=== PATIENT | female | born 1990 | race Caucasian/White ===

== ENCOUNTER → 2017-08-10 | Outpatient (CLI) | payer OTHER | END | disposition home or self-care (01) | LOC: C.PAPS 11:48 | PROVIDERS: ATTEND Family Medicine | DX: Z12.72 Encounter for screening for malignant neoplasm of vagina (principal) ==

== ENCOUNTER 2020-01-24 07:40 | Inpatient (IN) ==
[~2020-01-24 07:40] MED LIST: CEFAZOLIN 3000MG 65 ML IV ONE; CITRIC ACID/SODIUM CITRATE 15 ML UDC PO ONE
[2020-01-24] MEDS ORDERED: OXYTOCIN 30 UNITS/500 ML BAG IV PRN ×2 (07:46→08:24)
[2020-01-24 08:10] LABS: Hematocrit (blood only) 37.3 % (37-47); Hemoglobin 12.4 g/dL (12.0-16.0); Mean Corpuscular Hemoglobin 27.4 pg (25-34); Mean Corpuscular Volume 82.5 fL (80-100); Mean Platelet Volume 10.2 fL (7.4-10.4); Platelet Count 156 K/uL (130-400); RDW Coefficient of Variation 15.8 % (11.5-14.5); RDW Standard Deviation 47.1 fL (36.4-46.3); Red Blood Count 4.52 M/uL (4.2-5.4); White Blood Count 9.27 K/uL (4.8-10.8)
--- NOTE | 2020-01-24 08:17 | History & Physical Report ---
Date of Service January 24, 2020 Assessment & Plan (1) Encounter for induction of labor: PNL: Rh pos, RI, GBS neg, COVID neg Admit, labs, start IV Epidural when desired; anesthesiology consult placed Proceed with induction of labor per Pitocin augmentation protocol. Anticipate Admission and Anticipated Discharge Date Admission Date: January 24, 2020 History of Present Illness Primary Care Provider: Elma Damon DO Elvira Almendarez is a 29 y/o female currently at 40 3/7 WGA with an RADHA 01/21/20 as determined by LMP who is here for IOL due to postdates. Her was complicated by obesity. Patient does report some nausea this morning after eating a bagel but there was no vomiting. It is noted that she would like an epidural for pain control. + contractions q6 min overnight; + movement; - fluid loss; + bloody show Had regular appointments with OB. Blood type: A+ Antibody screen: neg Labs 06/20/19 Rubella: immune VDRL/RPR: nonreactive Gonorrhea: neg Chlamydia: neg HIV: neg HbSAg: neg GBS: negative 12/26/19 COVID-19 negative 01/12/20 Other screens: cff-DNA: low risk, female (see scanned documents) AFP negative CF and SMA: declined Allergies Allergy/AdvReac Type Severity Reaction Status Date / Time No Known Drug Allergies Allergy none Verified 01/24/20 07:48 Home Medications Home Medications Medication Instructions Recorded Confirmed Type prenat.vits,petrona,ova-rbwd-oggwz 1 tab PO DAILY #90 tab 08/17/19 01/24/20 Rx Patient History Medical History (Updated 01/24/20 @ 08:14 by [place] Alex DO) Cervical cancer screening Encounter for anatomic survey History of cervical dysplasia Hx of varicella Missed Obese Surgical History (Updated 06/13/19 @ 14:49 by Maricruz Angeles) H/O LEEP S/P ear surgery S/P LEEP of cervix S/P wisdom tooth extraction Family History (Updated 06/13/19 @ 15:08 by Maricruz Angeles) Grandmother (Maternal) Breast cancer Aunt Breast cancer Grandfather Heart murmur Other Twins, both liveborn Social History (Updated 06/13/19 @ 15:09 by Maricruz Angeles) Smoking Status: Never smoker Hx Alcohol Use: No Hx Substance Use: No Preferred Language: Azerbaijani Communication Ability: Effective 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 Denies shortness of breath or cough. Denies chest pain. Denies breast pain. + nausea. Denies vomiting. Denies dysuria or hematuria. Denies leg pain or leg swelling. Denies headache or changes in vision. Physical Exam Physical Exam: General: Alert, oriented. No acute distress. Cardiac: Regular rate and rhythm, no murmurs/rubs/gallops. Respiratory: Clear to auscultation bilaterally a/p, no wheezes/rales/rhonchi. No increased work of breathing. Symmetrical chest rise. No respiratory distress. Abdomen: Gravid. Vertex position. + heart tones. - palpable contractions. EFW 7-8# Pelvic: Dilation 4cm; Effacement 80%; Station -[address] Quezada in office yesterday External FHT and external uterine monitors used; Category I tracing; moderate FHT variability. Lower Extremities: No lower extremity edema or swelling. No deep calf pain. Yamilet's negative bilaterally Results & Data ([facility]) Vital Signs (Past 12 Hours) Vital Signs Temp Pulse Resp BP 01/24/20 07:44 36.9 C 93 H 20 139/84 Laboratory Results Labs at admission today H.4 Hct: 37.3 WBC: 9.27 Plt: 156 Code Status & VTE Plan VTE Prophylaxis Plan VTE Prophylaxis will be ordered: No Supervising Physician Co-Signing Physician Notes Resident Physician Supervision Note: I interviewed and examined the patient. Discussed with Dr. Alex and agree with findings and plan as documented in the note. Any exceptions or clarifications are listed here: 29yo at 40+wks ega desired elective induction of postdates. Cx exam yest in office favorable. /-2/ant/soft, GBS neg. Plan for pitocin and then arom with pattern. She desires epidural and can have when she wishes. FHTs categ 1. Documented By: Kayla Quezada MD, FACOG
[2020-01-24 08:23] LABS: Mean Corpuscular Hgb Conc 33.2 g/dL (32-36)
[2020-01-24] MEDS: LACTATED RINGER'S 1,000 ML IV PRN ×4 (08:37→21:05)
[2020-01-24] MEDS ORDERED: fentaNYL citrate 100 MCG/2 ML VIAL ONE (11:33)
[2020-01-24] MEDS ORDERED: ePHEDrine sulfate 50 MG/ML AMP ONE (11:33)
[2020-01-24] MEDS ORDERED: BUPIVACAINE 0.25% 30 ML VIAL ONE (11:33)
[2020-01-24] MEDS ORDERED: fentaNYL 2MCG/ML ROPIV 1.25MG/ML 100 ML BAG EPI ONE (11:34)
--- NOTE | 2020-01-24 13:05 | Anesthesiology Consultation ---
Date of Service January 24, 2020 Assessment & Plan Chart Review Chart Review: Acceptable Risk for Labor Epidural Consults Requested none History Height/Weight Height: 5 ft 4 in Weight: 99.337 kg Allergies Allergy/AdvReac Type Severity Reaction Status Date / Time No Known Drug Allergies Allergy none Verified 01/24/20 07:48 Medications Home Medications Medication Instructions Recorded Confirmed Last Taken prenat.vits,petrona,dkk-xocu-bgget 1 tab PO DAILY #90 tab 08/17/19 01/24/20 01/23/20 17:00 Active Medications Generic Name Dose Route Start Last Admin Trade Name Freq PRN Reason Stop Dose Admin Lactated Ringer's 1,000 mls @ 125 mls/hr 01/24/20 07:46 01/24/20 12:44 Lr IV 01/26/20 07:45 125 mls/hr .Q8H PRN Infusion L&D Protocol Protocol Oxytocin 30 units in 500 mls @ 14 mls/hr 01/24/20 08:24 01/24/20 12:00 Pitocin IV 01/26/20 08:23 0.84 units/hr .Q24H PRN 14 mls/hr Labor Induction/Augmentation Titration Protocol 0.84 UNITS/HR Past Medical History Medical History Cervical cancer screening Encounter for anatomic survey History of cervical dysplasia Hx of varicella Missed Obese Past Family History Family History Grandmother (Maternal) Breast cancer Aunt Breast cancer Grandfather Heart murmur Other Twins, both liveborn Past Surgical History Surgical History H/O LEEP S/P ear surgery S/P LEEP of cervix S/P wisdom tooth extraction Social History Smoking Status: Never smoker Hx Alcohol Use: No alcohol intake frequency: holidays/special occasions only Hx Substance Use: No Physical Exam Vital Signs Last Vital Signs Temp 36.9 C 01/24/20 12:37 Pulse 88 01/24/20 13:02 Resp 20 01/24/20 13:00 BP 115/62 01/24/20 13:02 Pulse Ox 99 01/24/20 12:58 Testing Laboratory Results 01/24/20 07:55
[2020-01-24] MEDS ORDERED: ePHEDrine sulfate 50 MG/ML AMP IV PRN (13:07)
[2020-01-24] MEDS ORDERED: NALOXONE HCL 1 MG in SODIUM CHLORIDE 0.9% 1000ML 1,000 ML IV PRN (13:07)
[2020-01-24] MEDS ORDERED: NALOXONE HCL 0.4 MG/1 ML VIAL/CARP IV PRN (13:07)
[2020-01-24] MEDS ORDERED: DiphenhydrAMINE HCL 50 MG/ML VIAL IV PRN (13:07)
[2020-01-24] MEDS ORDERED: fentaNYL 2MCG/ML ROPIV 1.25MG/ML 100 ML BAG EPI PRN (13:07)
--- NOTE | 2020-01-24 13:31 | Labor Progress Brief Note ---
Date of Service January 24, 2020 Subjective Reason For Note: Routine Evaluation now comfortable with epidural Assessment & Plan (1) Supervision of normal intrauterine in primigravida: (2) Encounter for induction of labor: (3) Obesity affecting : will see how fhts recover but really already have, meconium stained fluid explained to couple. restart pit at 7 in next 25min if categ 1. Admission and Anticipated Discharge Date Admission Date: January 24, 2020 Physical Exam Constitutional: WD/WN, vitals as above Genitourinary: Manual OB Exam: + cervical dilation 5 cm, + cervical effacement 90%, + station -2 and + amniotic fluid (AROM) meconium OB Exam Monitor Tracing: + external FHT monitor used, + scalp electrode used (90s, returning to 120 mod variability, accels) and + external uterine monitor used (q2) pit was at 14 but stopped when fhts not heard and then 80s, ivf bolus given. Results & Data ([facility]) Vital Signs (Past 12 Hours) Vital Signs Temp Pulse Resp BP Pulse Ox 01/24/20 13:24 83 92/55 L 01/24/20 13:23 84 98 01/24/20 13:18 76 97 01/24/20 13:13 88 99 01/24/20 13:08 85 113/66 99 01/24/20 13:06 82 114/63 01/24/20 13:04 96 H 115/63 01/24/20 13:03 92 H 99 01/24/20 13:02 88 115/62 01/24/20 13:00 88 20 116/59 L 01/24/20 12:58 95 H 109/58 L 99 01/24/20 12:56 88 119/62 01/24/20 12:54 93 H 113/61 01/24/20 12:53 87 99 01/24/20 12:52 82 118/58 L 01/24/20 12:51 20 01/24/20 12:50 86 128/61 01/24/20 12:48 85 124/58 L 100 01/24/20 12:47 78 138/65 01/24/20 12:43 82 99 01/24/20 12:38 86 99 01/24/20 12:37 98.4 F 82 20 133/85 01/24/20 12:33 83 99 01/24/20 12:28 81 99 01/24/20 12:23 89 98 01/24/20 12:18 89 98 01/24/20 12:13 87 99 01/24/20 12:08 92 H 99 01/24/20 12:03 71 100 01/24/20 11:58 79 100 01/24/20 11:53 75 99 01/24/20 11:48 78 99 01/24/20 11:43 80 99 01/24/20 11:38 82 120/72 99 01/24/20 11:33 88 99 01/24/20 11:28 79 100 01/24/20 11:00 98.6 F 20 01/24/20 10:37 76 126/68 01/24/20 09:37 75 118/76 01/24/20 08:45 81 118/69 01/24/20 08:14 85 136/75 01/24/20 07:44 98.4 F 93 H 20 139/84 Coding Level of Care Code None Diagnoses Supervision of normal intrauterine in primigravida Z34.00 Encounter for induction of labor Z34.90 Obesity affecting O99.210
--- NOTE | 2020-01-24 19:25 | Labor Progress Brief Note ---
Date of Service January 24, 2020 Subjective Reason For Note: Routine Evaluation pt with some pressure, was 10cm per nurse Assessment & Plan (1) Encounter for induction of labor: (2) Obesity affecting : (3) Supervision of normal intrauterine in primigravida: if fetus tolerates, rec position change and hold off on pushing. see if cephalic can come down and rotate. reexam pt in about 30min to begin 2nd stage or if she has overwhelming urge. Admission and Anticipated Discharge Date Admission Date: January 24, 2020 Physical Exam Constitutional: WD/WN, vitals as above Genitourinary: Manual OB Exam: + cervical dilation 10 cm, + cervical effacement 100% and + station + 1 OB Exam Monitor Tracing: + external FHT monitor used (130 mod variability, early decels), + external uterine monitor used (q2-3), + category II, + normal FHT variability and + variable decelerations tried to push with 2 ctx. not much effective pushing and fetus OP. rec position change Results & Data ([facility]) Vital Signs (Past 12 Hours) Vital Signs Temp Pulse Resp BP Pulse Ox 01/24/20 19:19 92 H 98 01/24/20 19:14 86 100 01/24/20 19:09 83 123/64 100 01/24/20 19:03 72 97 01/24/20 18:59 20 01/24/20 18:58 70 99 01/24/20 18:54 81 125/66 01/24/20 18:53 78 100 01/24/20 18:48 90 99 01/24/20 18:43 88 97 01/24/20 18:41 88 131/62 01/24/20 18:38 79 99 01/24/20 18:33 89 100 01/24/20 18:30 20 01/24/20 18:28 86 100 01/24/20 18:25 75 108/55 L 01/24/20 18:23 79 98 01/24/20 18:18 90 98 01/24/20 18:13 80 97 01/24/20 18:09 80 105/54 L 01/24/20 18:08 76 98 01/24/20 18:03 76 100 01/24/20 18:00 20 01/24/20 17:58 83 98 01/24/20 17:54 71 108/55 L 20 17:53 80 100 20 17:48 73 97 1820 17:43 73 97 20 17:39 72 104/51 L 20 17:38 73 96 20 17:33 72 97 1820 17:30 18 20 17:28 74 97 1820 17:24 76 108/52 L 20 17:23 76 96 20 17:18 72 97 20 17:13 77 97 20 17:09 73 115/53 L 01/24/20 17:08 85 98 01/24/20 17:03 78 100 01/24/20 17:00 98.6 F 20 01/24/20 16:58 75 98 20 16:54 73 94/50 L 01/24/20 16:53 72 100 20 16:48 73 99 01/24/20 16:43 79 99 20 16:39 76 92/53 L 01/24/20 16:38 70 100 20 16:33 73 100 20 16:30 20 20 16:28 75 99 20 16:25 67 103/54 L 01/24/20 16:23 70 99 20 16:18 80 100 20 16:13 71 100 20 16:11 71 96/51 L 01/24/20 16:08 78 98 01/24/20 16:03 75 99 20 16:00 18 20 15:58 79 99 20 15:54 83 118/66 1820 15:53 85 99 20 15:48 79 99 1820 15:43 89 98 1820 15:39 77 112/64 1820 15:38 85 97 1820 15:33 82 99 1820 15:30 20 20 15:28 87 97 1820 15:24 82 115/67 18/20 15:23 75 98 1820 15:18 76 99 01/24/20 15:13 73 99 01/24/20 15:09 77 108/66 01/24/20 15:08 76 98 01/24/20 15:03 82 98 01/24/20 15:00 98.6 F 20 01/24/20 14:58 75 99 01/24/20 14:54 69 98/51 L 01/24/20 14:53 74 99 01/24/20 14:48 76 98 01/24/20 14:43 81 97 01/24/20 14:40 20 01/24/20 14:39 80 117/59 L 01/24/20 14:38 77 97 01/24/20 14:33 74 99 01/24/20 14:28 72 100 01/24/20 14:25 76 88/50 L 01/24/20 14:23 75 98 01/24/20 14:18 81 97 01/24/20 14:15 20 01/24/20 14:13 73 99 01/24/20 14:09 79 97/55 L 01/24/20 14:08 80 98 01/24/20 14:03 80 98 01/24/20 13:58 75 98 01/24/20 13:54 69 95/55 L 01/24/20 13:53 80 98 01/24/20 13:50 18 01/24/20 13:48 78 97 01/24/20 13:45 18 01/24/20 13:43 81 96 01/24/20 13:39 78 99/58 L 01/24/20 13:38 77 96 01/24/20 13:33 81 97 01/24/20 13:29 74 18 95/54 L 01/24/20 13:28 75 97 01/24/20 13:24 83 92/55 L 01/24/20 13:23 84 98 01/24/20 13:18 76 97 01/24/20 13:15 20 01/24/20 13:13 88 99 01/24/20 13:08 85 113/66 99 01/24/20 13:06 82 114/63 01/24/20 13:04 96 H 115/63 01/24/20 13:03 92 H 99 01/24/20 13:02 88 115/62 01/24/20 13:00 88 20 116/59 L 01/24/20 12:58 95 H 109/58 L 99 01/24/20 12:56 88 119/62 01/24/20 12:54 93 H 113/61 01/24/20 12:53 87 99 01/24/20 12:52 82 118/58 L 01/24/20 12:51 20 01/24/20 12:50 86 128/61 01/24/20 12:48 85 124/58 L 100 01/24/20 12:47 78 138/65 01/24/20 12:43 82 99 01/24/20 12:38 86 99 01/24/20 12:37 98.4 F 82 20 133/85 01/24/20 12:33 83 99 01/24/20 12:28 81 99 01/24/20 12:23 89 98 01/24/20 12:18 89 98 01/24/20 12:13 87 99 01/24/20 12:08 92 H 99 01/24/20 12:03 71 100 01/24/20 11:58 79 100 01/24/20 11:53 75 99 01/24/20 11:48 78 99 01/24/20 11:43 80 99 01/24/20 11:38 82 120/72 99 01/24/20 11:33 88 99 01/24/20 11:28 79 100 01/24/20 11:00 98.6 F 20 01/24/20 10:37 76 126/68 01/24/20 09:37 75 118/76 01/24/20 08:45 81 118/69 01/24/20 08:14 85 136/75 01/24/20 07:44 98.4 F 93 H 20 139/84 Coding Level of Care Code None Diagnoses Encounter for induction of labor Z34.90 Obesity affecting O99.210 Supervision of normal intrauterine in primigravida Z34.00
[2020-01-24] MEDS ORDERED: CITRIC ACID/SODIUM CITRATE 15 ML UDC ONE (23:16)
--- NOTE | 2020-01-24 23:21 | Labor Progress Brief Note ---
Date of Service January 24, 2020 Subjective Reason For Note: Requested By RN pt feeling tired. has been pushing for 3+hours Assessment & Plan (1) Supervision of normal intrauterine in primigravida: (2) Obesity affecting : (3) Encounter for induction of labor: pt has been pushing but really no significant change in station, no molding. discussed vacuum assistance but given the station and really no descent of the cephalic with her expulsive efforts, i do not recommend. rec continued 2nd stage vs. section and recommended latter due to failure to descend. patient agrees and consent form reviewed and signed. anesth and peds notified by nursing. pitocin d/c'd Admission and Anticipated Discharge Date Admission Date: January 24, 2020 Physical Exam Constitutional: WD/WN, vitals as above Genitourinary: Manual OB Exam: + cervical dilation 10 cm, + cervical effacement 100% and + station + 1 OB Exam Monitor Tracing: + external FHT monitor used (150 mod variability, variables, ), + external uterine monitor used (q2-3), + category II and + normal FHT variability really no molding and station does not change with pt expulsive efforts. Results & Data ([facility]) Vital Signs (Past 12 Hours) Vital Signs Temp Pulse Resp BP Pulse Ox 01/24/20 23:14 98 H 99 01/24/20 23:09 86 135/79 97 01/24/20 23:04 98 H 98 01/24/20 22:59 98.2 F 75 20 98 01/24/20 22:55 96 H 130/64 01/24/20 22:54 89 98 01/24/20 22:49 108 H 100 01/24/20 22:45 20 01/24/20 22:44 123 H 99 01/24/20 22:39 90 127/77 97 01/24/20 22:34 106 H 99 01/24/20 22:30 20 01/24/20 22:29 88 98 01/24/20 22:25 86 127/75 01/24/20 22:24 80 96 01/24/20 22:19 90 100 01/24/20 22:15 20 01/24/20 22:14 96 H 98 01/24/20 22:09 99 H 97 01/24/20 22:04 90 99 08/18/20 22:00 20 08/18/20 21:59 82 99 18/20 21:54 99 H 126/68 98 18/20 21:49 95 H 99 18/20 21:45 20 18/20 21:44 114 H 99 18/20 21:39 94 H 118/56 L 98 1820 21:36 112 H 91 18/20 21:34 100 H 100 1820 21:30 118 H 20 93 18/20 21:29 84 99 18/20 21:25 82 154/63 H 18/20 21:24 108 H 96 18/20 21:19 74 99 1820 21:15 20 20 21:14 72 99 1820 21:09 86 109/60 100 1820 21:04 104 H 99 20 21:02 104 H 89 L 20 21:00 98.8 F 20 20 20:59 78 99 1820 20:56 85 91 18/20 20:54 83 100 18/20 20:49 76 99 18/20 20:45 20 1820 20:44 96 H 100 1820 20:41 86 115/59 L 1820 20:39 78 99 1820 20:34 75 100 18/20 20:30 20 0818/20 20:29 110 H 98 18/20 20:25 89 121/63 1820 20:24 97 H 97 18/20 20:19 76 99 18/20 20:14 92 H 99 18/20 20:09 92 H 128/67 100 18/20 20:04 80 98 18/20 20:00 18 18/20 19:59 95 H 97 18/20 19:54 89 119/65 96 18/20 19:49 84 96 18/20 19:44 83 98 18/20 19:39 89 130/66 96 18/20 19:34 77 100 0818/20 19:30 18 08/18/20 19:29 82 99 18/20 19:25 98.2 F 18 1820 19:24 87 121/63 98 18/20 19:20 98.2 F 18 20 19:19 92 H 98 1820 19:14 86 100 20 19:09 83 123/64 100 1820 19:03 72 97 1820 18:59 20 20 18:58 70 99 20 18:54 81 125/66 20 18:53 78 100 20 18:48 90 99 20 18:43 88 97 20 18:41 88 131/62 20 18:38 79 99 20 18:33 89 100 20 18:30 20 20 18:28 86 100 20 18:25 75 108/55 L 01/24/20 18:23 79 98 01/24/20 18:18 90 98 01/24/20 18:13 80 97 01/24/20 18:09 80 105/54 L 20 18:08 76 98 20 18:03 76 100 20 18:00 20 20 17:58 83 98 20 17:54 71 108/55 L 20 17:53 80 100 1820 17:48 73 97 1820 17:43 73 97 1820 17:39 72 104/51 L 1820 17:38 73 96 1820 17:33 72 97 1820 17:30 18 1820 17:28 74 97 1820 17:24 76 108/52 L 1820 17:23 76 96 1820 17:18 72 97 1820 17:13 77 97 1820 17:09 73 115/53 L 1820 17:08 85 98 1820 17:03 78 100 1820 17:00 98.6 F 20 20 16:58 75 98 1820 16:54 73 94/50 L 20 16:53 72 100 08/18/20 16:48 73 99 18/20 16:43 79 99 1820 16:39 76 92/53 L 20 16:38 70 100 18/20 16:33 73 100 18/20 16:30 20 20 16:28 75 99 18/20 16:25 67 103/54 L 20 16:23 70 99 20 16:18 80 100 1820 16:13 71 100 1820 16:11 71 96/51 L 20 16:08 78 98 20 16:03 75 99 20 16:00 18 01/24/20 15:58 79 99 20 15:54 83 118/66 20 15:53 85 99 20 15:48 79 99 20 15:43 89 98 20 15:39 77 112/64 20 15:38 85 97 20 15:33 82 99 20 15:30 20 20 15:28 87 97 18/20 15:24 82 115/67 01/23/20 15:23 75 98 20 15:18 76 99 20 15:13 73 99 20 15:09 77 108/66 20 15:08 76 98 20 15:03 82 98 01/24/20 15:00 98.6 F 20 01/24/20 14:58 75 99 20 14:54 69 98/51 L 20 14:53 74 99 20 14:48 76 98 18/20 14:43 81 97 1820 14:40 20 20 14:39 80 117/59 L 01/24/20 14:38 77 97 1820 14:33 74 99 1820 14:28 72 100 20 14:25 76 88/50 L 20 14:23 75 98 1820 14:18 81 97 01/24/20 14:15 20 01/24/20 14:13 73 99 08/18/20 14:09 79 97/55 L 01/24/20 14:08 80 98 01/24/20 14:03 80 98 01/24/20 13:58 75 98 01/24/20 13:54 69 95/55 L 01/24/20 13:53 80 98 01/24/20 13:50 18 01/24/20 13:48 78 97 01/24/20 13:45 18 01/24/20 13:43 81 96 01/24/20 13:39 78 99/58 L 01/24/20 13:38 77 96 01/24/20 13:33 81 97 01/24/20 13:29 74 18 95/54 L 01/24/20 13:28 75 97 01/24/20 13:24 83 92/55 L 01/24/20 13:23 84 98 01/24/20 13:18 76 97 01/24/20 13:15 20 01/24/20 13:13 88 99 01/24/20 13:08 85 113/66 99 01/24/20 13:06 82 114/63 01/24/20 13:04 96 H 115/63 01/24/20 13:03 92 H 99 01/24/20 13:02 88 115/62 01/24/20 13:00 88 20 116/59 L 01/24/20 12:58 95 H 109/58 L 99 01/24/20 12:56 88 119/62 01/24/20 12:54 93 H 113/61 01/24/20 12:53 87 99 01/24/20 12:52 82 118/58 L 01/24/20 12:51 20 01/24/20 12:50 86 128/61 01/24/20 12:48 85 124/58 L 100 01/24/20 12:47 78 138/65 01/24/20 12:43 82 99 01/24/20 12:38 86 99 01/24/20 12:37 98.4 F 82 20 133/85 01/24/20 12:33 83 99 01/24/20 12:28 81 99 01/24/20 12:23 89 98 01/24/20 12:18 89 98 01/24/20 12:13 87 99 01/24/20 12:08 92 H 99 01/24/20 12:03 71 100 01/24/20 11:58 79 100 01/24/20 11:53 75 99 01/24/20 11:48 78 99 01/24/20 11:43 80 99 01/24/20 11:38 82 120/72 99 01/24/20 11:33 88 99 01/24/20 11:28 79 100 Coding Level of Care Code None Diagnoses Supervision of normal intrauterine in primigravida Z34.00 Obesity affecting O99.210 Encounter for induction of labor Z34.90
[2020-01-24] MEDS ORDERED: LACTATED RINGER'S 1,000 ML IV SCH (23:30)
[2020-01-24] MEDS ORDERED: LIDOCAINE/EPINEPHRINE 2% 1:200,000 20 ML SDV ONE (23:38)
[2020-01-25] MEDS ORDERED: fentaNYL citrate 100 MCG/2 ML VIAL ONE (00:11)
[2020-01-25] MEDS ORDERED: METHYLERGONOVINE MALEATE 0.2 MG/ML AMP ONE (00:31)
[2020-01-25] MEDS ORDERED: ONDANSETRON INJ 2 MG/ML 2 ML VIAL ONE (00:31)
[2020-01-25] MEDS ORDERED: PHENYLEPHRINE 100MCG/ML 5ML SYR ONE (00:31)
--- NOTE | 2020-01-25 00:39 | Post Operative Brief Note ---
PG Immediate Post Op with CF Date of Surgery January 25, 2020 Pre & Post Diagnosis Operation Date: 01/24/20 23:40 <No data on this case meets the specified criteria> 1. 40+wk iup 2. elective induction of labor 3. failure to descend 4. meconium stained fluid I identified the patient and participated in the time-out.: Yes Procedure Operation Date: 01/24/20 23:40 <No data on this case meets the specified criteria> Primary Low Transverse Section Surgeon Kayla Quezada MD, FACOG Blueprint Duplicator RN Estimated Blood Loss 800 Findings Consistent with Post-Op Diagnosis (viable female, apgars 8,9. normal uterus, tubes and ovaries bilaterally) Fluids 1000cc Specimens Specimen Description: cord blood Drains Martinez Catheter Anesthesia Type Labor Epidural Complications none Disposition Accompanied Patient To Recovery: No Disposition: L&D
[2020-01-25] MEDS ORDERED: OXYTOCIN 10 UNITS/ML VIAL ONE (00:45)
--- NOTE | 2020-01-25 00:51 | Operative Report ---
PG Post Operative Report Pre & Post Diagnosis Operation Date: 01/24/20 23:40 <No data on this case meets the specified criteria> 1. 40+wk iup 2. Elective postdates induction of labor 3. Meconium stained fluid 4. Failure to descend I identified the patient and participated in the time-out.: Yes Procedure Operation Date: 01/24/20 23:40 <No data on this case meets the specified criteria> 1. Primary Low Transverse Section Surgeon Kayla Quezada MD, FACOG Plastic Tile Setter RN Estimated Blood Loss 800 Findings Consistent with Post-Op Diagnosis (viable female, apgars 8,9. weight 8# 11oz, normal uterus, tubes and ovaries bilaterally) Fluids 1000cc Specimens cord blood Drains herrera Anesthesia Type Labor Epidural Complications none Disposition Accompanied Patient To Recovery: No Disposition: L&D Indications 29yo at 40+wks ega presented to L&D for planned postdates induction of labor. Received pitocin and arom performed with thin meconium noted. Had epidural for pain management and reached complete dilation. Pushed for 3+ hours with no significant descent. Recommended for section and agreed. Station +1 and discussed vacuum assistance but did not recommend due to station and no movement of cephalic with maternal expulsive efforts. Patient and partner agreed to proceed with section. Description of Procedure The patient was taken to the operating room and identified. After adequate anesthesia was obtained, she was placed in the supine position with a leftward tilt on the operating table and prepped and draped in the usual sterile fashion. A herrera catheter had already been placed. The knife was used to create a Pfannensteil skin incision that was carried down to the underlying layer of fascia. The fascia was nicked in the midline and this opening was extended laterally using Lopes scissors. Ailyn clamps were placed on the superior and inferior aspect of the fascial incision tenting it upward and the underlying rectus muscles were dissected off the overlying fascia both sharply and bluntly using Lopes scissors. The rectus muscles were bluntly in the midline. The peritoneal cavity was bluntly entered into. This opening was stretched. The bladder blade was placed. The vesicouterine peritoneum was elevated and opened up into and the bladder flap was created digitally and bladder blade was replaced. The knife was used to create a hysterotomy and this opening was stretched. The operators hand was placed through the hysterotomy and the bladder blade was removed. The head was elevated and flexed and with fundal pressure the head was delivered. The shoulders and body were rapidly delivered. The cord was clamped and cut and the infant's mouth and nares were bulb suction. The was handed off to the awaiting pediatricians. Cord blood was obtained. The placenta was manually expressed. The uterus was exteriorized and cleared of all clots and debris. Dilute IV Pitocin was begun. The uterine tone was improving. The hysterotomy was closed in a running interlocking fashion using 0 Vicryl followed by a second imbricating layer of 0 Vicryl. A bleeding site at the left of the midline was bleeding and stitched with an interrupted suture of 2-0 vicryl for excellent hemostasis. The hysterotomy was hemostatic. The pelvis was irrigated. The uterus was returned to the abdomen. The gutters were cleared of all clots and debris. The hysterotomy was reinspected and noted to be hemostatic. The fascia was then closed in running fashion using 0 Vicryl. The subcutaneous fat was copiously irrigated and reapproximated using 2-0 chromic. The skin was closed in a subcuticular fashion using 4-0 Vicryl. At this point the procedure was terminated. The patient was transferred to the recovery room in stable condition. All sponge, lap and needle counts are correct x2. I attest to the content of the Intraoperative Record and any orders documented therein. Any exceptions are noted below. OB Procedure charges OB Charges 89377 C/S
[2020-01-25] MEDS ORDERED: KETOROLAC 30 MG/ML VIAL IV PRN (01:06)
[2020-01-25] MEDS ORDERED: DiphenhydrAMINE HCL 50 MG/ML VIAL IV PRN (01:06)
[2020-01-25] MEDS ORDERED: MAGNESIUM HYDROXIDE SUSP 30 ML UDC PO PRN (01:06)
[2020-01-25] MEDS ORDERED: BENZOCAINE 20% AER SPR 82.5 GM CAN EXT PRN (01:06)
[2020-01-25] MEDS ORDERED: METHYLERGONOVINE MALEATE 0.2 MG/ML AMP IM STA (01:06)
[2020-01-25] MEDS ORDERED: ONDANSETRON INJ 2 MG/ML 2 ML VIAL IV PRN (01:06)
[2020-01-25] MEDS ORDERED: HYDROCORTISONE ACETATE 25 MG SUPP PR PRN (01:06)
[2020-01-25] MEDS ORDERED: SUPERCREAM 0.870% 15 GM JAR EXT PRN (01:06)
[2020-01-25] MEDS ORDERED: PROMETHAZINE HCL 25 MG in SODIUM CHLORIDE 0.9% 50 ML IV PRN (01:06)
[2020-01-25] MEDS ORDERED: DIPHTHERIA/TETANUS/PERTUSSIS 0.5 ML SYR/VIAL IM ONE (01:06)
[2020-01-25] MEDS ORDERED: KETOROLAC 30 MG/ML VIAL ONE (01:21)
[2020-01-25] MEDS: OXYTOCIN 20 UNITS in LACTATED RINGER'S 1,000 ML IV SCH ×2 (01:46→10:06)
--- NOTE | 2020-01-25 01:49 | Anesthesiology Progress Note ---
Date of Service January 25, 2020 Anesthesia Post Procedure Vital Signs Vital Signs: Temp Pulse Resp BP Pulse Ox 01/25/20 01:45 83 16 93 01/25/20 01:44 81 96 01/25/20 01:41 86 122/58 L 01/25/20 01:39 85 97 01/25/20 01:35 16 01/25/20 01:34 88 99 01/25/20 01:31 85 124/58 L 01/25/20 01:29 84 100 01/25/20 01:25 18 01/25/20 01:24 96 H 100 01/25/20 01:21 85 122/54 L 01/25/20 01:19 88 99 01/25/20 01:15 18 01/25/20 01:14 94 H 100 01/25/20 01:09 109 H 100 01/25/20 01:08 132/75 01/25/20 01:05 18 01/25/20 01:04 99 H 99 01/25/20 00:59 105 H 96 01/25/20 00:55 37.3 C 18 01/25/20 00:53 98 H 100 01/25/20 00:50 100 H 119/64 01/25/20 00:48 102 H 100 01/24/20 23:47 18 01/24/20 23:44 109 H 99 01/24/20 23:42 98 H 142/64 H 01/24/20 23:39 94 H 145/66 H 98 01/24/20 23:34 94 H 98 01/24/20 23:29 101 H 97 01/24/20 23:25 88 143/66 H 01/24/20 23:24 92 H 98 01/24/20 23:19 96 H 98 01/24/20 23:15 20 01/24/20 23:14 98 H 99 01/24/20 23:09 86 135/79 97 01/24/20 23:04 98 H 98 01/24/20 23:00 20 01/24/20 22:59 36.8 C 75 20 98 01/24/20 22:55 96 H 130/64 01/24/20 22:54 89 98 01/24/20 22:49 108 H 100 01/24/20 22:45 20 01/24/20 22:44 123 H 99 08/18/20 22:39 90 127/77 97 0818/20 22:34 106 H 99 18/20 22:30 20 0818/20 22:29 88 98 0818/20 22:25 86 127/75 0818/20 22:24 80 96 08/18/20 22:19 90 100 0818/20 22:15 20 0818/20 22:14 96 H 98 18/20 22:09 99 H 97 18/20 22:04 90 99 18/20 22:00 20 18/20 21:59 82 99 18/20 21:54 99 H 126/68 98 18/20 21:49 95 H 99 18/20 21:45 20 1820 21:44 114 H 99 18/20 21:39 94 H 118/56 L 98 18/20 21:36 112 H 91 18/20 21:34 100 H 100 18/20 21:30 118 H 20 93 1820 21:29 84 99 18/20 21:25 82 154/63 H 18/20 21:24 108 H 96 18/20 21:19 74 99 18/20 21:15 20 081820 21:14 72 99 18/20 21:09 86 109/60 100 0818/20 21:04 104 H 99 18/20 21:02 104 H 89 L 18/20 21:00 37.1 C 20 18/20 20:59 78 99 18/20 20:56 85 91 18/20 20:54 83 100 18/20 20:49 76 99 0818/20 20:45 20 0818/20 20:44 96 H 100 0818/20 20:41 86 115/59 L 18/20 20:39 78 99 18/20 20:34 75 100 0818/20 20:30 20 0818/20 20:29 110 H 98 0818/20 20:25 89 121/63 0818/20 20:24 97 H 97 18/20 20:19 76 99 18/20 20:14 92 H 99 18/20 20:09 92 H 128/67 100 1820 20:04 80 98 18/20 20:00 18 1820 19:59 95 H 97 1820 19:54 89 119/65 96 1820 19:49 84 96 1820 19:44 83 98 1820 19:39 89 130/66 96 18/20 19:34 77 100 1820 19:30 18 1820 19:29 82 99 1820 19:25 36.8 C 18 1820 19:24 87 121/63 98 1820 19:20 36.8 C 18 20 19:19 92 H 98 20 19:14 86 100 20 19:09 83 123/64 100 20 19:03 72 97 1820 18:59 20 20 18:58 70 99 20 18:54 81 125/66 20 18:53 78 100 20 18:48 90 99 20 18:43 88 97 1820 18:41 88 131/62 1820 18:38 79 99 1820 18:33 89 100 20 18:30 20 20 18:28 86 100 20 18:25 75 108/55 L 20 18:23 79 98 1820 18:18 90 98 1820 18:13 80 97 1820 18:09 80 105/54 L 1820 18:08 76 98 1820 18:03 76 100 1820 18:00 20 1820 17:58 83 98 1820 17:54 71 108/55 L 1820 17:53 80 100 18/20 17:48 73 97 18/20 17:43 73 97 1820 17:39 72 104/51 L 18/20 17:38 73 96 18/20 17:33 72 97 18/20 17:30 18 1820 17:28 74 97 18/20 17:24 76 108/52 L 20 17:23 76 96 1820 17:18 72 97 1820 17:13 77 97 20 17:09 73 115/53 L 20 17:08 85 98 1820 17:03 78 100 1820 17:00 37.0 C 20 01/24/20 16:58 75 98 20 16:54 73 94/50 L 01/24/20 16:53 72 100 1820 16:48 73 99 20 16:43 79 99 20 16:39 76 92/53 L 01/24/20 16:38 70 100 20 16:33 73 100 20 16:30 20 20 16:28 75 99 20 16:25 67 103/54 L 01/24/20 16:23 70 99 01/24/20 16:18 80 100 01/24/20 16:13 71 100 01/24/20 16:11 71 96/51 L 01/24/20 16:08 78 98 20 16:03 75 99 01/24/20 16:00 18 01/24/20 15:58 79 99 20 15:54 83 118/66 20 15:53 85 99 20 15:48 79 99 20 15:43 89 98 20 15:39 77 112/64 20 15:38 85 97 20 15:33 82 99 1820 15:30 20 20 15:28 87 97 1820 15:24 82 115/67 18/20 15:23 75 98 1820 15:18 76 99 1820 15:13 73 99 20 15:09 77 108/66 20 15:08 76 98 1820 15:03 82 98 1820 15:00 37.0 C 20 01/24/20 14:58 75 99 20 14:54 69 98/51 L 01/24/20 14:53 74 99 01/24/20 14:48 76 98 01/24/20 14:43 81 97 01/24/20 14:40 20 01/24/20 14:39 80 117/59 L 01/24/20 14:38 77 97 01/24/20 14:33 74 99 01/24/20 14:28 72 100 01/24/20 14:25 76 88/50 L 01/24/20 14:23 75 98 01/24/20 14:18 81 97 01/24/20 14:15 20 01/24/20 14:13 73 99 01/24/20 14:09 79 97/55 L 01/24/20 14:08 80 98 01/24/20 14:03 80 98 01/24/20 13:58 75 98 01/24/20 13:54 69 95/55 L 01/24/20 13:53 80 98 01/24/20 13:50 18 01/24/20 13:48 78 97 01/24/20 13:45 18 01/24/20 13:43 81 96 01/24/20 13:39 78 99/58 L 01/24/20 13:38 77 96 01/24/20 13:33 81 97 01/24/20 13:29 74 18 95/54 L 01/24/20 13:28 75 97 01/24/20 13:24 83 92/55 L 01/24/20 13:23 84 98 01/24/20 13:18 76 97 01/24/20 13:15 20 01/24/20 13:13 88 99 01/24/20 13:08 85 113/66 99 01/24/20 13:06 82 114/63 01/24/20 13:04 96 H 115/63 01/24/20 13:03 92 H 99 01/24/20 13:02 88 115/62 01/24/20 13:00 88 20 116/59 L 01/24/20 12:58 95 H 109/58 L 99 01/24/20 12:56 88 119/62 01/24/20 12:54 93 H 113/61 01/24/20 12:53 87 99 01/24/20 12:52 82 118/58 L 01/24/20 12:51 20 01/24/20 12:50 86 128/61 01/24/20 12:48 85 124/58 L 100 01/24/20 12:47 78 138/65 01/24/20 12:43 82 99 01/24/20 12:38 86 99 01/24/20 12:37 36.9 C 82 20 133/85 01/24/20 12:33 83 99 01/24/20 12:28 81 99 01/24/20 12:23 89 98 01/24/20 12:18 89 98 01/24/20 12:13 87 99 01/24/20 12:08 92 H 99 01/24/20 12:03 71 100 01/24/20 11:58 79 100 01/24/20 11:53 75 99 01/24/20 11:48 78 99 01/24/20 11:43 80 99 01/24/20 11:38 82 120/72 99 01/24/20 11:33 88 99 01/24/20 11:28 79 100 01/24/20 11:00 37.0 C 20 01/24/20 10:37 76 126/68 01/24/20 09:37 75 118/76 01/24/20 08:45 81 118/69 01/24/20 08:14 85 136/75 01/24/20 07:44 36.9 C 93 H 20 139/84 Pain Intensity Bilateral Abdomen: Pain Intensity: 5 Transfer of Care Handoff Completed per policy Notes Mental Status: alert / awake / arousable and participated in evaluation Patient Amnestic to Procedure: Yes Nausea / Vomiting: adequately controlled Pain: adequately controlled Airway Patency, RR, SpO2: stable & adequate BP & HR: stable & adequate Hydration State: stable & adequate Anesthetic Complications: no major complications apparent
--- NOTE | 2020-01-25 01:49 | Anesthesia Procedure Note ---
Date of Service January 25, 2020 Anesthesia Post Epidural Note Vital Signs Vital Signs: Temp Pulse Resp BP Pulse Ox 37.3 C 83 16 122/58 L 93 01/25/20 00:55 01/25/20 01:45 01/25/20 01:45 01/25/20 01:41 01/25/20 01:45 Pain Intensity Bilateral Abdomen: Pain Intensity: 5 Notes Mental Status: alert / awake / arousable Nausea / Vomiting: adequately controlled Pain: adequately controlled Airway Patency, RR, SpO2: stable & adequate BP & HR: stable & adequate Hydration State: stable & adequate Neuraxial Anesthesia: was administered and sensory block is resolving Anesthetic Complications: no major complications apparent and Pt Satisfied with anesthetic care Epidural: Removed without complications and With tip intact
[2020-01-25] MEDS ORDERED: MEPERIDINE HCL 25 MG/ML CARP/VIAL IV PRN (05:46)
[2020-01-25] MEDS ORDERED: ATROPINE SULFATE 0.1 MG/ML 10ML SYR IV PRN (05:46)
[2020-01-25] MEDS ORDERED: fentaNYL citrate 100 MCG/2 ML VIAL IV PRN (05:46)
[2020-01-25] MEDS ORDERED: ePHEDrine sulfate 50 MG/ML AMP IV PRN (05:46)
[2020-01-25] MEDS ORDERED: HYDROmorphone INJ 2 MG/ML SYR/VIAL IV PRN (05:46)
[2020-01-25] MEDS ORDERED: NALOXONE HCL 0.4 MG/1 ML VIAL/CARP IV PRN (05:52)
[2020-01-25] MEDS ORDERED: HYDROmorphone PCA 30 MG/30 ML IV PRN (05:52)
[2020-01-25] MEDS ORDERED: SODIUM CHLORIDE 0.9% 1000ML 1,000 ML IV SCH (06:00)
[2020-01-25] MEDS: DOCUSATE SODIUM 100 MG CAP PO SCH ×2 (08:27→20:43)
[2020-01-25] MEDS: FERROUS SULFATE 325 MG TAB PO SCH (08:27)
[2020-01-25] MEDS: SIMETHICONE 80 MG CHEW PO SCH ×4 (08:27→20:43)
[2020-01-25] MEDS: PRENATAL VITAMIN 1 TAB PO SCH (08:29)
[2020-01-25] MEDS: OXYCODONE/ACETAMINOPHEN 5mg/325mg TAB PO PRN (20:42)
[2020-01-26] MEDS: OXYCODONE/ACETAMINOPHEN 5mg/325mg TAB PO PRN ×4 (01:19→21:17)
[2020-01-26] MEDS: IBUPROFEN 600 MG TAB PO PRN ×4 (01:20→21:16)
[2020-01-26 05:39] LABS: Basophils # (auto) 0.02 K/uL (0-0.2); Basophils % (auto) 0.2 %; Eosinophils # (auto) 0.18 K/uL (0-0.5); Eosinophils % (auto) 1.5 %; Hematocrit (blood only) 35.2 % (37-47); Hemoglobin 11.2 g/dL (12.0-16.0); Immature Granulocytes # (auto) 0.07 K/uL (0.00-0.02); Immature Granulocytes % (auto) 0.6 %; Lymphocytes # (auto) 2.34 K/uL (1.2-3.4); Lymphocytes % (auto) 18.9 %; Mean Corpuscular Hemoglobin 27.1 pg (25-34); Mean Corpuscular Hgb Conc 31.8 g/dL (32-36); Mean Platelet Volume 10.3 fL (7.4-10.4); Monocytes # (auto) 0.72 K/uL (0.11-0.59); Monocytes % (auto) 5.8 %; Neutrophils # (auto) 9.02 K/uL (1.4-6.5); Platelet Count 177 K/uL (130-400); RDW Coefficient of Variation 16.3 % (11.5-14.5); RDW Standard Deviation 51.2 fL (36.4-46.3); Red Blood Count 4.14 M/uL (4.2-5.4); White Blood Count 12.35 K/uL (4.8-10.8)
--- NOTE | 2020-01-26 07:00 | Obstetrical Progress Note ---
Date of Service <Venice Mely Alex DO - Last Filed: 01/26/20 07:54> January 26, 2020 Assessment & Plan <Venice GauthierFarhan OswaldkeatonDO john - Last Filed: 01/26/20 07:54> (1) Normal course: - PNL: Rh pos, RI, GBS neg, COVID neg - Feels well today. Eating well, voiding well, ambulating well. - Pain well controlled with ibuprofen 600mg Q4H PRN - Routine care -- OOB, ambulation, diet progression as tolerated - After discharge will have 6 week follow-up with Dr. Quezada. Subjective <Venice GauthierFarhan Alex DO - Last Filed: 01/26/20 07:54> Elvira Almendarez is a 29 y/o female who is POD #1 following delivery due to failure to descend during stage I labor after IOL due to postdates at 40 4/7 weeks. She reports feeling well overall this morning. Minimal abdominal cramping and 0-3/10 pain well managed on analgesics. Voiding without difficulty or dysuria. Tolerating meals overnight without nausea or vomiting. Patient has been able to ambulate some. + passing gas and - bowel movement. Has persistent lochia with some improvement this morning. Currently and supplementing with bottle. Review of Systems Denies fever or chills. Denies shortness of breath or cough. Denies chest pain. Denies breast pain. Denies dysuria. Denies leg pain or leg swelling. Denies headache or changes in vision. Physical Exam <Venice Mely Alex DO - Last Filed: 01/26/20 07:54> General: Alert, oriented. No acute distress. Cardiac: Regular rate and rhythm. No murmurs. Respiratory: Clear to auscultation bilaterally a/p, no wheezes/rales/rhonchi. No increased work of breathing. Symmetrical chest rise. No respiratory distress. Abdomen: Soft, nontender, nondistended. Bowel sounds present. Uterus: Uterine fundus firm, palpable 1 cm below umbilicus on right. Surgical scar clean with dressing in place that is C/D/I. Lower Extremities: SCDs in place. No lower extremity edema or swelling. No deep calf pain. Yamilet's negative bilaterally. Results & Data ([facility]) <Venice Alex DO - Last Filed: 01/26/20 07:54> Vital Signs (Past 12 Hours) Vital Signs Temp Pulse Resp BP Pulse Ox 01/26/20 01:10 36.8 C 84 15 115/73 97 01/25/20 20:15 36.9 C 81 16 113/72 98 Laboratory Results H/H this morning at 0523: 11.2/35.2 <Harinder Kennedy Jr, MD, FACOG - Last Filed: 01/26/20 08:16> Co-Signing Physician Notes Resident Physician Supervision Note: I was present with Dr. Alex during the history and exam. I discussed the case with the resident and agree with the findings and plan as documented in the note. Any exceptions or clarifications are listed here: Dressing removed, incision intact. Routine care Documented By: Harinder Kenndey Jr, MD, FACOG
[2020-01-26] MEDS: FERROUS SULFATE 325 MG TAB PO SCH (08:29)
[2020-01-26] MEDS: DOCUSATE SODIUM 100 MG CAP PO SCH ×2 (08:29→21:16)
[2020-01-26] MEDS: PRENATAL VITAMIN 1 TAB PO SCH (08:30)
[2020-01-26] MEDS: SIMETHICONE 80 MG CHEW PO SCH ×4 (08:32→21:16)
[2020-01-27] MEDS: IBUPROFEN 600 MG TAB PO PRN ×4 (01:45→23:46)
[2020-01-27] MEDS: OXYCODONE/ACETAMINOPHEN 5mg/325mg TAB PO PRN ×4 (01:45→23:47)
--- NOTE | 2020-01-27 06:18 | Obstetrical Progress Note ---
Date of Service <Venice Alex DO - Last Filed: 01/27/20 07:33> January 27, 2020 Assessment & Plan <Venice Mely Alex DO - Last Filed: 01/27/20 07:33> (1) Normal course: - PNL: Rh pos, RI, GBS neg, COVID neg - Feels well today. Eating well, voiding well, ambulating well. - Pain well controlled with ibuprofen 600mg Q4H PRN - Routine care -- OOB, ambulation, diet progression as tolerated - After discharge will have 6 week follow-up with Dr. Quezada. - Will plan for d/c home tomorrow. Subjective <Venice MFarhan Alex DO - Last Filed: 01/27/20 07:33> Elvira Almendarez is a 29 y/o female who is POD #2 following delivery due to failure to descend during stage II labor at 40 4/7 weeks. She reports feeling well overall this morning. Some abdominal cramping and 2-3/10 pain well managed on analgesics. Voiding without dysuria or difficulty. Tolerating meals overnight without nausea or vomiting. Patient has been able to ambulate some. + passing gas and - bowel movement. Has persistent lochia with some improvement this morning. Currently and supplementing with the bottle. Review of Systems Denies fever or chills. Denies shortness of breath or cough. Denies chest pain. Denies breast pain. Denies dysuria. Denies leg pain or leg swelling. Denies headache or changes in vision. Physical Exam <Venice Alex DO - Last Filed: 01/27/20 07:33> General: Alert, oriented. No acute distress. Cardiac: Regular rate and rhythm. No murmurs. Respiratory: Clear to auscultation bilaterally a/p, no wheezes/rales/rhonchi. No increased work of breathing. Symmetrical chest rise. No respiratory distress. Abdomen: Soft, nontender, nondistended. Bowel sounds present. Uterus: Uterine fundus firm, palpable at umbilicus. Surgical scar clean and healing well without warmth, erythema, or discharge. Lower Extremities: No lower extremity edema or swelling. No deep calf pain. Yamilet's negative bilaterally. Results & Data ([facility]) <Venice Alex DO - Last Filed: 01/27/20 07:33> Vital Signs (Past 12 Hours) Vital Signs Temp Pulse Resp BP Pulse Ox 01/26/20 23:20 36.7 C 80 16 115/74 97 01/26/20 19:50 36.9 C 80 16 125/70 <Lia Briceno MD - Last Filed: 01/27/20 07:44> Co-Signing Physician Notes I have reviewed the resident's note and examined the patient myself, and agree with the note above.
[2020-01-27 08:07] LABS: Hematocrit (blood only) 33.1 % (37-47); Hemoglobin 10.5 g/dL (12.0-16.0)
[2020-01-27] MEDS: DOCUSATE SODIUM 100 MG CAP PO SCH ×2 (08:50→20:06)
[2020-01-27] MEDS: FERROUS SULFATE 325 MG TAB PO SCH (08:50)
[2020-01-27] MEDS: PRENATAL VITAMIN 1 TAB PO SCH (08:50)
[2020-01-27] MEDS: SIMETHICONE 80 MG CHEW PO SCH ×4 (08:51→20:06)
--- NOTE | 2020-01-28 06:47 | Obstetrical Progress Note ---
Date of Service <Venice Alex DO - Last Filed: 01/28/20 06:47> January 28, 2020 Assessment & Plan <Venice Alex DO - Last Filed: 01/28/20 06:47> (1) Normal course: - PNL: Rh pos, RI, GBS neg, COVID neg - Feels well today. Eating well, voiding well, ambulating well. - Pain well controlled with ibuprofen 600mg Q4H PRN - Routine care -- OOB, ambulation, diet progression as tolerated - After discharge will have 6 week follow-up with Dr. Quezada. - Will plan for d/c home today. Subjective <Venice Alex DO - Last Filed: 01/28/20 06:47> Elvira Almendarez is a 29 y/o female who is POD #3 following due to failure to descend during stage II labor after IOL at 40 4/7 weeks. She reports feeling well overall this morning. Some abdominal cramping and 4/10 pain well managed on analgesics. Voiding without dysuria. Tolerating meals overnight without nausea or vomiting. Patient has been able to ambulate some. + passing gas and - bowel movement. Has persistent lochia with some improvement this morning. Currently . Review of Systems Denies fever or chills. Denies shortness of breath or cough. Denies chest pain. Denies breast pain. Denies dysuria. Denies leg pain or leg swelling. Denies headache or changes in vision. Physical Exam <Venice Alex DO - Last Filed: 01/28/20 06:47> General: Alert, oriented. No acute distress. Cardiac: Regular rate and rhythm. No murmurs. Respiratory: Clear to auscultation bilaterally a/p, no wheezes/rales/rhonchi. No increased work of breathing. Symmetrical chest rise. No respiratory distress. Abdomen: Soft, nontender, nondistended. Bowel sounds present. Uterus: Uterine fundus firm, palpable 2 cm below umbilicus. Surgical scar clean and healing well. Lower Extremities: No lower extremity edema or swelling. No deep calf pain. Yamilet's negative bilaterally. Results & Data ([facility]) <Venice Alex DO - Last Filed: 01/28/20 06:47> Vital Signs (Past 12 Hours) Vital Signs Temp Pulse Resp BP Pulse Ox 01/27/20 23:10 36.6 C 83 16 113/75 97 <Adrienne Peterson DO - Last Filed: 01/28/20 08:33> Co-Signing Physician Notes Resident Physician Supervision Note: I was present with Dr. Alex during the history and exam. I discussed the case with the resident and agree with the findings and plan as documented in the note. Any exceptions or clarifications are listed here: POD#3 doing well. Reviewed DC instructions. Documented By: Adrienne Peterson DO
[2020-01-28] MEDS: FERROUS SULFATE 325 MG TAB PO SCH (08:16)
[2020-01-28] MEDS: DOCUSATE SODIUM 100 MG CAP PO SCH (08:16)
[2020-01-28] MEDS: SIMETHICONE 80 MG CHEW PO SCH (08:16)
[2020-01-28] MEDS: PRENATAL VITAMIN 1 TAB PO SCH (08:16)
[2020-01-28] MEDS: IBUPROFEN 600 MG TAB PO PRN (08:17)
[2020-01-28] MEDS: OXYCODONE/ACETAMINOPHEN 5mg/325mg TAB PO PRN (08:17)
--- NOTE | 2020-01-31 14:10 | Discharge Summary ---
Date of Service Date of admission: January 24, 2020 Date of discharge: January 28, 2020 Admission HPI Per Admitting Provider Elvira Almendarez is a 29 y/o female currently at 40 3/7 WGA with an RADHA 01/21/20 as determined by LMP who is here for IOL due to postdates. Her was complicated by obesity. Patient does report some nausea this morning after eating a bagel but there was no vomiting. It is noted that she would like an epidural for pain control. + contractions q6 min overnight; + movement; - fluid loss; + bloody show Had regular appointments with OB. Blood type: A+ Antibody screen: neg Labs 06/20/19 Rubella: immune VDRL/RPR: nonreactive Gonorrhea: neg Chlamydia: neg HIV: neg HbSAg: neg GBS: negative 12/26/19 COVID-19 negative 01/12/20 Other screens: cff-DNA: low risk, female (see scanned documents) AFP negative CF and SMA: declined Discharge Data Consultations 01/24/20 07:46 Consult Anesthesiology Stat Procedures Performed Operation Date: 01/24/20 23:40 Actual Procedures Primary Low Transverse Section. Hospital Course (1) : The patient was admitted for planned induction, please see her H&P for more details. She received pitocin, arom performed and epidural for anesthesia. She dilated to complete and pushed for 4+hours with no significant descent. See operative notes for further details. She agreed to section which was performed The procedures were performed without incident. Her postop recovery and course were uncomplicated and on POD #3 she was stable for discharge to home. She was tolerating a regular diet, voiding and ambulating wi thout difficulty and her pain was well controlled on oral pain medications. Her instructions were reviewed and followup reviewed which was planned for approximately 6 weeks. She was sent appropriate pain medicine scripts to her pharmacy. Her hemoglobin upon discharge was 10.5. Coding Level of Care Code None Diagnoses Z34.90
== END 2020-01-28 11:40 | disposition home or self-care (01) | DRG 788 ==
LOC: 4S1 07:40 → 4S2 01-25 03:15

== ENCOUNTER 2022-07-11 06:55 | Inpatient (IN) ==
--- NOTE | 2022-06-26 18:00 | History & Physical Report ---
Date of Service June 26, 2022 Assessment & Plan (1) Previous delivery affecting , antepartum: (2) with 39 completed weeks gestation: Plan PLan repeat c/s and desires sterilization. Discussed barriers, hormones, ltrc and vasectomy. Understands permanence. Risks of the surgery discussed with the patient including anesthesia, bleeding requiring transfusion, infection and poor wound healing, damage to surrounding structures, need for further surgery, injury to the baby, heart attack , blood clot, stroke , . Consent reviewed and signed. Questions answered. History of Present Illness Chief Complaint: repeat c/s Primary Care Provider: NO PCP Patient is a 31yowf with iup at 39 weeks who presents for elective repeat c/s and sterilization. First c/s was in 2019 for failure to progress, pushed for four hours. Declines CUCO. This uncomplicated. and Delivery Plans COVID POSITIVE 11/08/21 Prior Section affecting Will want RCS @ 39wk C/S WITH TUBAL SCHEDULED FOR 07/11/[address] MARAVILLA Obesity (BMI between 35-39 @ beginning of ) *Growth US @ 32 wks *Weekly NSTs @ 36wks Covid Vaccine x 2 OB Labs: Blood Type A Positive 11/29/21 Antibody Screen NEGATIVE 11/29/21 Hemoglobin 11.8 g/dl (12.0-16.0) L 04/21/22 Hematocrit 36.4 % (34.1-44.9) 04/21/22 Mean Corpuscular Volume 80.4 fL (80-100) 11/29/21 Platelet Count 264 K/uL (130-400) 11/29/21 Rubella IgG Antibody Immune (Immune) 11/29/21 Rapid Plasma Reagin Nonreactive (Nonreactive) 11/29/21 Hepatitis B Surface Antigen Neg (Neg) 06/20/19 Hepatitis B Surface Antigen. NON-REACTIVE (NON-REACTIVE) 11/29/21 Hepatitis C Antibody (EIA) NON-REACTIVE (NON-REACTIVE) 11/29/21 HIV (1&2) Ab and P24 Ag, 4th Gener Neg (Neg) 06/20/19 HIV (1&2) Ag and Ab Confirmation NON-REACTIVE (NON-REACTIVE) 11/29/21 Glucose 1 Hour 50 gm Load 131 mg/dl (70-130) H 04/21/22 Maternal Serum Alpha Fetoprotein 41.5 ng/mL 08/17/19 OB Optional Labs: Chlamydia trachomatis RNA NOT DETECTED (NOT DETECTED) 11/29/21 Neisseria gonorrhoeae RNA NOT DETECTED (NOT DETECTED) 11/29/21 Alpha Fetoprotein Triple Screen SEE NOTE 08/17/19 Labs Reviewed: no labs to pull forward from prior HK Declines cf/sma--mln cfdna-low risk--mln Declines msafp--mln Allergies Allergy/AdvReac Type Severity Reaction Status Date / Time No Known Drug Allergies Allergy none Verified 06/26/22 15:07 Home Medications Medication Instructions Recorded Confirmed Type prenat.vits,petrona,pxf-[id number] 1 tab PO DAILY #90 tabs 08/17/19 06/26/22 Rx breast pump #1 ea 05/08/22 06/26/22 Rx Patient History Medical History Cervical cancer screening Encounter for anatomic survey History of cervical dysplasia Hx of varicella Missed Obese Surgical History H/O LEEP History of low transverse section S/P ear surgery S/P LEEP of cervix S/P wisdom tooth extraction Family History Grandmother (Maternal) Breast cancer Aunt Breast cancer Grandfather Heart murmur Other Twins, both liveborn Social History Smoking Status: Never smoker Hx Alcohol Use: No Hx Substance Use: No Preferred Language: Maltese Communication Ability: Effective Visual Impairment: No Limitations 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 Date GA wks Lbr Lgth wt Sex Type del Anes Place Del Prov ? Comment 02/03/19 Aborted-Spontaneous record closed due to MAB 08/19/20 40 8lbs 11.3 oz F C-Sec tion Epidural [facility] Dr Quezada No failure to progress APPLICATION CONSULTANT History noncontributory Physical Exam Constitutional: WD/WN, vitals as above Neck: trachea midline, no thyromegaly Respiratory: normal respiratory effort, lungs clear to auscultation Cardiovascular: RRR, no murmur, no edema Extremities: no calf tenderness and no edema Gastrointestinal (Abdomen): soft, nt, gravid Coding Level of Care Code None Diagnoses Previous delivery affecting , antepartum O34.219 with 39 completed weeks gestation Z3A.39
--- NOTE | 2022-07-04 12:33 | Anesthesiology Consultation ---
Date of Service July 04, 2022 Assessment & Plan (1) Encounter for pre-operative examination: Chart Review Chart Review: medical charge entry specialist initiated -COVID screening: Per PAT nursing assessment on 07/04/22. No known COVID-19 po sitive contacts or current COVID-19 related symptoms. Travel screen negative. Patient vaccinated for Covid. At surgeon discretion if preop Covid testing being done. History Surgery Operation Date: 07/11/22 07:30 Proposed Procedures p Section (Delivery of Baby Through Abdominal Incision) - Francia Couch MD, FACOG s with Bilateral Tubal Ligation - Francia Couch MD, FACOG Height/Weight Height: 5 ft 4 in Weight: 99.337 kg Allergies Allergy/AdvReac Type Severity Reaction Status Date / Time No Known Drug Allergies Allergy none Verified 07/04/22 11:11 Medications Home Medications Medication Instructions Recorded Confirmed Last Taken breast pump #1 ea 05/08/22 06/26/22 Unknown prenat.vits,petrona,vdw-twrc-qinit 1 tab PO QAM 07/04/22 07/04/22 Unknown Past Medical History Medical History History of cervical dysplasia History of COVID-24 November 2021 -> mild symptoms. Infertility with first /medications only. Missed hx Obese Past Family History Family History Grandmother (Maternal) Breast cancer Aunt Breast cancer Grandfather Heart murmur Other Twins, both liveborn Past Surgical History Surgical History History of dilatation and curettage History of low transverse section S/p bilateral myringotomy with tube placement S/P LEEP of cervix S/P tympanoplasty right? S/P wisdom tooth extraction Social History Smoking Status: Never smoker Do You Dip or Chew Tobacco: No Hx Alcohol Use: No alcohol intake frequency: holidays/special occasions only Hx Substance Use: No substance use type: does not use
[~2022-07-11 06:55] MED LIST changes: -CEFAZOLIN 3000MG 65 ML IV ONE; -CITRIC ACID/SODIUM CITRATE 15 ML UDC PO ONE; +CITRIC ACID/SODIUM CITRATE 15 ML UDC PO SCH
--- NOTE | 2022-07-11 07:19 | History & Physical Bridge Note ---
Date of Service July 11, 2022 History & Physical Bridge Note I have examined the patient, reviewed the History & Physical and in the interval since the performance of the History & Physical I have noted the following changes of clinical significance: no changes noted
[2022-07-11] MEDS ORDERED: SODIUM CHLORIDE 0.9% 250 ML IV PRN (07:53)
[2022-07-11] MEDS ORDERED: ONDANSETRON INJ 2 MG/ML 2 ML VIAL ONE (07:57)
[2022-07-11] MEDS ORDERED: OXYTOCIN 10 UNITS/ML 10ML VIAL ONE (07:57)
[2022-07-11] MEDS ORDERED: KETOROLAC 30 MG/ML VIAL ONE (07:57)
[2022-07-11] MEDS ORDERED: fentaNYL citrate 100 MCG/2 ML VIAL ONE (07:58)
[2022-07-11] MEDS ORDERED: MoRPHine SULFATE PF 1 MG/ML 10 ML AMP/VIAL ONE (07:58)
[2022-07-11] MEDS ORDERED: LACTATED RINGER'S 1,000 ML IV SCH ×2 (08:30→10:30)
[2022-07-11] MEDS ORDERED: ePHEDrine sulfate 50 MG/ML AMP IV PRN (09:53)
[2022-07-11] MEDS ORDERED: PROMETHAZINE HCL 12.5 MG in SODIUM CHLORIDE 0.9% 50 ML IV PRN (09:53)
[2022-07-11] MEDS ORDERED: NALBUPHINE HCL INJ 10 MG/ML AMP IV PRN (09:53)
[2022-07-11] MEDS ORDERED: KETOROLAC 30 MG/ML VIAL IV PRN ×2 (09:53→10:27)
[2022-07-11] MEDS ORDERED: NALOXONE HCL 0.08 MG in SYRINGE 1.8 ML IV PRN (09:53)
[2022-07-11] MEDS ORDERED: ONDANSETRON INJ 2 MG/ML 2 ML VIAL IV PRN ×2 (09:53→10:27)
[2022-07-11] MEDS ORDERED: ACETAMINOPHEN 1,000 MG/100 ML VIAL IV PRN (09:53)
[2022-07-11] MEDS ORDERED: MoRPHine SULFATE PF 1 MG/ML 10 ML AMP/VIAL INT SPINAL ONE (09:53)
[2022-07-11] MEDS ORDERED: diphenhydrAMINE 50 MG/ML VIAL IV PRN ×2 (09:53→10:27)
[2022-07-11] MEDS ORDERED: NALOXONE HCL 1 MG in SODIUM CHLORIDE 0.9% 1000ML 1,000 ML IV PRN (09:53)
[2022-07-11] MEDS ORDERED: NALOXONE HCL 0.4 MG/1 ML VIAL/CARP IV PRN (09:53)
[2022-07-11] MEDS ORDERED: LACTATED RINGER'S 500 ML IV PRN (09:53)
[2022-07-11] MEDS ORDERED: DC INTRASPINAL MORPHINE SCH (10:00)
[2022-07-11] MEDS ORDERED: SODIUM CHLORIDE 0.9% 1000ML 1,000 ML IV SCH (10:00)
[2022-07-11] MEDS ORDERED: NO NARCOTICS OR SEDATIVES SCH (10:00)
[2022-07-11] MEDS ORDERED: DIPHTHERIA/TETANUS/PERTUSSIS 0.5mL SYR/VIAL (Age 7+yrs) IM ONE (10:27)
[2022-07-11] MEDS ORDERED: HYDROCORTISONE ACETATE 25 MG SUPP PR PRN (10:27)
[2022-07-11] MEDS ORDERED: diphenhydrAMINE Capsule 25 MG CAP PO PRN (10:27)
[2022-07-11] MEDS ORDERED: SENNA 8.6 MG TAB PO PRN (10:27)
[2022-07-11] MEDS ORDERED: PROMETHAZINE HCL 25 MG in SODIUM CHLORIDE 0.9% 50 ML IV PRN (10:27)
[2022-07-11] MEDS ORDERED: BENZOCAINE 20% AER SPR 82.5 GM CAN EXT PRN (10:27)
[2022-07-11] MEDS ORDERED: MEPERIDINE HCL 50 MG/ML CARP IV PRN (10:27)
[2022-07-11] MEDS ORDERED: MAGNESIUM HYDROXIDE SUSP 30 ML UDC PO PRN (10:27)
--- NOTE | 2022-07-11 10:34 | Operative Report ---
PG Post Operative Report Pre & Post Diagnosis Operation Date: 07/11/22 08:50 Pre-Op Diagnosis: 1. 39 weeks gestation 2. Repeat section 3. Desires permanent sterilization Post-Op Diagnosis: same I identified the patient and participated in the time-out.: Yes Procedure Operation Date: 07/11/22 08:50 Actual Procedures p Section in LD for live male infant at 0959 - Francia Couch MD, FACOG bilateral salpingectomy Surgeon Francia Couch MD, FACOG Financial Institution Vice President Darvin Lopez, MS2 Estimated Blood Loss 500 Findings Consistent with Post-Op Diagnosis nl appearing uterus/tubes/ovs bilaterally. viable male infant, nuchal x 1, apgars 8/9 Fluids 800cc uop--200cc Specimens bilateral tubes Drains herrera Anesthesia Type Spinal Complications none Disposition Accompanied Patient To Recovery: Yes Disposition: L&D Indications 31yowf at 39 weeks with hx of previous c/s for FTD . Now presents for repeat and tubal ligation. Description of Procedure The patient was taken to the operating room where she was identified verbally and by bracelet. She was seated on the operating table where a spinal anesthetic was placed by anesthesia. She was then placed in the supine position with a leftward tilt. A Herrera catheter was placed sterilely. the patient was prepped and draped in a normal standard fashion. the anesthetic was tested and found to be adequate. A time-out was held, identifying correct patient, procedure, positioning and preoperative antibiotics. There were no concerns. A Pfannenstiel skin incision was made with a knife and taken down to the underlying layer of fascia with the knife and Bovie electrocautery. Bleeding was attended to with the Bovie. The fascia was incised in the midline with the knife and taken out laterally with scissors. The superior edge of the fascial incision was grasped, elevated and the underlying layer of rectus muscle was taken off bluntly and with scissors. In a similar fashion, the inferior edge of the fascial incision was grasped, elevated and the underlying layer of rectus muscle was taken off bluntly and with scissors. The muscles were bluntly in the midline. The peritoneum was entered bluntly. The incision was then stretched. The bladder blade was placed. The vesicouterine peritoneum was identified, entered with scissors and taken out laterally with scissors. The bladder flap was created digitally A hysterotomy incision was scored with a knife and the incision was stretched superiorly and inferiorly with the perforating machine operator's fingers. The operators hand was placed into the incision and the head was delivered atraumatically. + nuchal cord. The nose and mouth were bulb suctioned. the rest of the infant was then delivered without difficulty. The nose and mouth were again bulb suctioned. The cord was clamped and cut and the was then handed off to the awaiting facility mechanic for drying and attention. Cord blood and segment were obtained. The placenta was Manually extracted. The uterus was exteriorized and cleared of all clot and debris with moistened laparotomy sponges. The hysterotomy incision was repaired in one layer a running locked layer. Hemostasis was noted to be g ood. Posterior cul-de-sac was irrigated and cleared of all clot and debris. A bilateral salpingectomy was done using the Ligasure, first on the left and then on the right. The hysterotomy incision was again inspected and found to be hemostatic. the uterus was reinteriorized. Hysterotomy incision was again inspected and found to be hemostatic. Rectus muscles were reapproximated with several interrupted stitches of 0 Vicryl. The fascia was then reapproximated with 0 Vicryl starting at the edges and meeting in the midline. The subcuticular tissues were copiously irrigated and bleeding was attended to with cautery. The skin was then closed with 4-0 Vicryl in a subcuticular fashion. All sponge, lap and needle counts were correct x 2. the patient was taken to the recovery room in stable condition. I attest to the content of the Intraoperative Record and any orders documented therein. Any exceptions are noted below. OB Procedure Charges 54874 Add on Tubal for C/S
--- NOTE | 2022-07-11 10:42 | Anesthesiology Progress Note ---
Date of Service July 11, 2022 Anesthesia Post Procedure Vital Signs Vital Signs: Temp Pulse Resp BP Pulse Ox 07/11/22 07:26 97.7 F 18 07/11/22 10:37 63 100 07/11/22 10:32 67 117/59 L 100 07/11/22 07:04 83 105/61 Transfer of Care Handoff Completed per policy Notes Mental Status: alert / awake / arousable and participated in evaluation Patient Amnestic to Procedure: Yes Nausea / Vomiting: adequately controlled Pain: adequately controlled Airway Patency, RR, SpO2: stable & adequate BP & HR: stable & adequate Hydration State: stable & adequate Neuraxial Anesthesia: was administered and sensory block is resolving Anesthetic Complications: no major complications apparent and Pt Satisfied with anesthetic care
[2022-07-11] MEDS: OXYTOCIN 20 UNITS in LACTATED RINGER'S 1,000 ML IV SCH ×2 (11:40→20:02)
[2022-07-11] MEDS: SIMETHICONE 80 MG CHEW PO SCH ×3 (14:29→20:06)
[2022-07-11] MEDS: HYDROmorphone INJ 0.5 MG/0.5 ML SYR IV PRN (15:23)
[2022-07-11] MEDS: DOCUSATE SODIUM 100 MG CAP PO SCH (20:06)
[2022-07-12] MEDS: HYDROmorphone INJ 0.5 MG/0.5 ML SYR IV PRN (01:46)
--- NOTE | 2022-07-12 05:20 | Obstetrical Progress Note ---
Date of Service <Dara LiangFarhan Blank DO - Last Filed: 07/12/22 06:21> July 12, 2022 Assessment & Plan <Dara LiangFarhan Blank DO - Last Filed: 07/12/22 06:21> (1) Status post section: plan for d/c Martinez, do a trial of OOB and ambulation and then progress diet as tolerated <Lia Briceno MD - Last Filed: 07/12/22 07:50> (1) Status post section: Subjective <Dara S. DO Abhay - Last Filed: 07/12/22 06:21> Elvira is a 31 y/o female who is POD #1 following delivery at 39 weeks. She reports feeling well overall this morning. Mild abdominal cramping, pain well managed on analgesics. Martinez is still in place. Tolerating meals overnight. Is passing gas, no bowel movement. Has some persistent lochia with some improvement this morning. Currently breast feeding. Review of Systems Denies fever, chills, sweats Denies shortness of breath, difficulty breathing, chest pain, palpitations, chest pressure. Denies breast pain. Denies dysuria. Denies headache or changes in vision. Physical Exam <Dara Blank DO - Last Filed: 07/12/22 06:21> General: Alert, oriented. No acute distress. Cardiac: Regular rate and rhythm, no murmurs/rubs/gallops. Respiratory: Clear to auscultation bilaterally a/p, no wheezes/rales/rhonchi. No increased work of breathing. Symmetrical chest rise. No respiratory distress. Abdomen: Soft, nontender, nondistended. Bowel sounds present. Uterus: Uterine fundus firm, palpable 1 cm below umbilicus. Surgical dressing in place; clean and dry. Lower Extremities: No lower extremity edema or swelling. No deep calf pain. Yamilet's negative bilaterally. Results & Data ([facility]) <Dara Cedric Blank DO - Last Filed: 07/12/22 06:21> Vital Signs (Past 12 Hours) Vital Signs Temp Pulse Resp BP Pulse Ox O2 Del Method 07/12/22 03:30 16 93 07/12/22 02:30 16 93 07/12/22 04:00 18 94 07/12/22 04:00 36.6 C 73 18 104/69 94 Room Air 07/12/22 01:45 16 92 07/12/22 00:45 16 94 07/11/22 23:30 16 93 07/11/22 23:30 36.8 C 67 16 107/67 93 Room Air 07/11/22 22:45 16 93 07/11/22 21:30 18 93 07/11/22 20:30 16 94 07/11/22 19:40 18 93 07/11/22 19:40 Room Air 07/11/22 19:40 37.1 C 80 18 117/69 93 Room Air 07/11/22 18:00 18 94 07/11/22 17:32 16 97 <Lia Briceno MD - Last Filed: 07/12/22 07:50> Laboratory Results Laboratory Results - last 24 hr 07/11/22 07/12/22 07:32 06:02 WBC 8.86 RBC 3.99 L Hgb 10.6 L Hct 32.5 L MCV 81.5 MCH 26.6 MCHC 32.6 RDW Std Deviation 49.7 H RDW Coeff of Ara 16.7 H Plt Count 142 MPV 10.3 Immature Gran % (Auto) 0.6 Neut % (Auto) 73.8 Lymph % (Auto) 17.4 Thurston % (Auto) 6.3 Eos % (Auto) 1.4 Baso % (Auto) 0.5 Neut # (Auto) 6.55 H Lymph # (Auto) 1.54 Thurston # (Auto) 0.56 Eos # (Auto) 0.12 Baso # (Auto) 0.04 Immature Gran # (Auto) 0.05 Blood Type A Positive Antibody Screen NEGATIVE Crossmatch See Detail <Lia Briceno MD - Last Filed: 07/12/22 07:50> Co-Signing Physician Notes Resident Physician Supervision Note: I interviewed and examined the patient. Discussed with Dr. Blank and agree with findings and plan as documented in the note. Any exceptions or clarifications are listed here: [ ] Documented By: Lia Briceno MD, FACOG Resident Activity Tracking <Dara Blank DO - Last Filed: 07/12/22 06:21> Resident Involvement: Resident Care Provided Care Provided: OB Delivery (post )
[2022-07-12] MEDS: IBUPROFEN 600 MG TAB PO PRN ×3 (06:10→15:38)
[2022-07-12] MEDS: oxyCODONE/ACETAMINOPHEN 5mg/325mg TAB PO PRN ×3 (06:10→15:38)
[2022-07-12 06:28] LABS: Basophils # (auto) 0.04 K/uL (0-0.2); Basophils % (auto) 0.5 %; Eosinophils # (auto) 0.12 K/uL (0-0.50); Eosinophils % (auto) 1.4 %; Hematocrit (blood only) 32.5 % (37.0-47.0); Hemoglobin 10.6 g/dl (12.0-16.0); Immature Granulocytes # (auto) 0.05 K/uL (0.01-0.20); Immature Granulocytes % (auto) 0.6 %; Lymphocytes # (auto) 1.54 K/uL (1.2-3.4); Lymphocytes % (auto) 17.4 %; Mean Corpuscular Hemoglobin 26.6 pg (25.0-34.0); Mean Corpuscular Hgb Conc 32.6 g/dL (32.0-36.0); Mean Corpuscular Volume 81.5 fL (80.0-100.0); Mean Platelet Volume 10.3 fL (9.4-12.4); Monocytes # (auto) 0.56 K/uL (0.11-0.59); Monocytes % (auto) 6.3 %; Neutrophils # (auto) 6.55 K/uL (1.40-6.50); Neutrophils % (auto) 73.8 %; Platelet Count 142 K/uL (130-400); RDW Coefficient of Variation 16.7 % (11.5-14.5); RDW Standard Deviation 49.7 fL (36.4-46.3); Red Blood Count 3.99 M/uL (4.20-5.40); White Blood Count 8.86 K/ul (4.8-10.8)
[2022-07-12] MEDS: DOCUSATE SODIUM 100 MG CAP PO SCH ×2 (08:13→21:04)
[2022-07-12] MEDS: FERROUS SULFATE 325 MG TAB PO SCH (08:13)
[2022-07-12] MEDS: PRENATAL VITAMIN 1 TAB PO SCH (08:13)
[2022-07-12] MEDS: SIMETHICONE 80 MG CHEW PO SCH ×4 (08:14→21:05)
[2022-07-12] MEDS ORDERED: bisacodyL 5 MG TABEC PO SCH (20:00)
[2022-07-13] MEDS: oxyCODONE/ACETAMINOPHEN 5mg/325mg TAB PO PRN ×2 (00:53→22:49)
[2022-07-13] MEDS: IBUPROFEN 600 MG TAB PO PRN ×5 (00:53→22:49)
[2022-07-13 07:00] LABS: Hematocrit (blood only) 31.8 % (37.0-47.0); Hemoglobin 10.3 g/dl (12.0-16.0)
[2022-07-13] MEDS: FERROUS SULFATE 325 MG TAB PO SCH (08:21)
[2022-07-13] MEDS: SIMETHICONE 80 MG CHEW PO SCH ×4 (08:21→22:49)
[2022-07-13] MEDS: DOCUSATE SODIUM 100 MG CAP PO SCH ×2 (08:22→22:49)
[2022-07-13] MEDS: PRENATAL VITAMIN 1 TAB PO SCH (08:22)
--- NOTE | 2022-07-13 10:09 | Obstetrical Progress Note ---
Date of Service July 13, 2022 Assessment & Plan (1) Status post section: Plan Patient doing well. Routine PP care. Home tomorrow. Day #:: 2 Subjective Ambulation: ambulating normally Voiding: no voiding problems Passing Gas:: Yes Diet Tolerance:: regular diet Lochia:: Small Feeding Type:: breast feeding notes some mild nausea last night, resolved. Pain controlled. Physical Exam Constitutional WD/WN, vitals as above Cardiovascular Extremities: no calf tenderness and no edema Gastrointestinal (Abdomen) obese, soft, appropriately tender, ff at u incision c/d/i Psychiatric A+Ox3, euthymic affect Results & Data ([facility]) Vital Signs (Past 12 Hours) Vital Signs Temp Pulse Resp BP Pulse Ox O2 Del Method 07/13/22 08:15 Room Air 07/13/22 08:15 36.4 C L 72 18 110/72 98 Room Air 07/13/22 00:09 36.6 C 74 18 117/76 Room Air
[2022-07-13] MEDS ORDERED: bisacodyL 10 MG SUPP PR PRN (10:27)
[2022-07-14] MEDS: IBUPROFEN 600 MG TAB PO PRN ×2 (04:45→13:29)
[2022-07-14] MEDS: oxyCODONE/ACETAMINOPHEN 5mg/325mg TAB PO PRN ×2 (04:45→13:29)
--- NOTE | 2022-07-14 05:59 | Obstetrical Progress Note ---
Date of Service <Dara Blank - Last Filed: 07/14/22 07:00> July 14, 2022 Assessment & Plan <Dara Blank - Last Filed: 07/14/22 07:00> (1) Status post section: continue OOB and ambulation and then progress diet as tolerated - 6 week f/u for post visit - discharge instructions reviewed <Francia Couch MD, FACOG - Last Filed: 07/14/22 07:20> (1) Status post section: Subjective <Dara Blank DO - Last Filed: 07/14/22 07:00> Elvira is a 31 y/o female who is POD #3 following delivery at 39 weeks. She reports feeling well overall this morning. Mild abdominal cramping, pain well managed on analgesics. Voiding. Tolerating full diet. Is passing gas, had a bowel movement. Has some persistent lochia with some improvement this morning. Currently breast feeding. Feels like left breast is engorged; denies erythema. Review of Systems Denies fever, chills, sweats Denies shortness of breath, difficulty breathing, chest pain, palpitations, chest pressure. Denies breast pain. Denies dysuria. Denies headache or changes in vision. Physical Exam <Dara Blank - Last Filed: 07/14/22 07:00> General: Alert, oriented. No acute distress. Cardiac: Regular rate and rhythm, no murmurs/rubs/gallops. Respiratory: Clear to auscultation bilaterally a/p, no wheezes/rales/rhonchi. No increased work of breathing. Symmetrical chest rise. No respiratory distress. Abdomen: Soft, nontender, nondistended. Bowel sounds present. Uterus: Uterine fundus firm, palpable 2 cm below umbilicus. Surgical dressing in place; clean and dry. Lower Extremities: No lower extremity edema or swelling. No deep calf pain. Yamilet's negative bilaterally. Results & Data ([facility]) <Dara Blank - Last Filed: 07/14/22 07:00> Vital Signs (Past 12 Hours) Vital Signs Temp Pulse Resp BP BP O2 Del Method 07/13/22 23:05 36.5 C 79 18 122/79 Room Air 07/13/22 20:42 36.6 C 80 18 110/68 Room Air <Francia Couch MD, FACOG - Last Filed: 07/14/22 07:20> Co-Signing Physician Notes Resident Physician Supervision Note: I interviewed and examined the patient. Discussed with Dr. Blank and agree with findings and plan as documented in the note. Any exceptions or clarifications are listed here: Doing well. Plan d/c. Instructions given. Documented By: Francia Couch MD, FACOG Resident Activity Tracking <Dara Blank, DO - Last Filed: 07/14/22 07:00> Resident Involvement: Resident Care Provided Care Provided: OB Delivery (Post )
[2022-07-14] MEDS: DOCUSATE SODIUM 100 MG CAP PO SCH (08:02)
[2022-07-14] MEDS: FERROUS SULFATE 325 MG TAB PO SCH (08:02)
[2022-07-14] MEDS: PRENATAL VITAMIN 1 TAB PO SCH (08:02)
[2022-07-14] MEDS: SIMETHICONE 80 MG CHEW PO SCH ×2 (08:07→13:30)
--- NOTE | 2022-07-15 15:25 | Discharge Summary ---
Date of Service July 15, 2022 Admission HPI Per Admitting Provider Patient is a 31yowf with iup at 39 weeks who presents for elective repeat c/s and sterilization. First c/s was in 2019 for failure to progress, pushed for four hours. Declines CUCO. This uncomplicated. and Delivery Plans COVID POSITIVE 11/08/21 Prior Section affecting Will want RCS @ 39wk C/S WITH TUBAL SCHEDULED FOR 07/11/[address] MARAVILLA Obesity (BMI between 35-39 @ beginning of ) *Growth US @ 32 wks *Weekly NSTs @ 36wks Covid Vaccine x 2 OB Labs: Blood Type A Positive 11/29/21 Antibody Screen NEGATIVE 11/29/21 Hemoglobin 11.8 g/dl (12.0-16.0) L 04/21/22 Hematocrit 36.4 % (34.1-44.9) 04/21/22 Mean Corpuscular Volume 80.4 fL (80-100) 11/29/21 Platelet Count 264 K/uL (130-400) 11/29/21 Rubella IgG Antibody Immune (Immune) 11/29/21 Rapid Plasma Reagin Nonreactive (Nonreactive) 11/29/21 Hepatitis B Surface Antigen Neg (Neg) 06/20/19 Hepatitis B Surface Antigen. NON-REACTIVE (NON-REACTIVE) 11/29/21 Hepatitis C Antibody (EIA) NON-REACTIVE (NON-REACTIVE) 11/29/21 HIV (1&2) Ab and P24 Ag, 4th Gener Neg (Neg) 06/20/19 HIV (1&2) Ag and Ab Confirmation NON-REACTIVE (NON-REACTIVE) 11/29/21 Glucose 1 Hour 50 gm Load 131 mg/dl (70-130) HB 04/21/22 Maternal Serum Alpha Fetoprotein 41.5 ng/mL 08/17/19 OB Optional Labs: Chlamydia trachomatis RNA NOT DETECTED (NOT DETECTED) 11/29/21 Neisseria gonorrhoeae RNA NOT DETECTED (NOT DETECTED) 11/29/21 Alpha Fetoprotein Triple Screen SEE NOTE 08/17/19 Labs Reviewed: no labs to pull forward from prior HK Declines cf/sma--mln cfdna-low risk--mln Declines msafp--mln Discharge Data Consultations 07/11/22 08:18 Consult Anesthesiology Stat Procedures Performed Operation Date: 07/11/22 08:50 Actual Procedures p Section in LD for live male at 0959 and bilateral tubal ligation - Francia Maravilla MD, [facility] [place] Course (1) Status post section: The patient was admitted and underwent a repeat LTCS without difficulty with bilateral salpingectomy to deliver a viable male infacnt, apgars 8/9. course uncomplicated. EBL 500cc. Tolerated regular diet, ambulated, voided after removal of herrera, tolerated po pain meds. Dischared home on POD#3. To f/u in 6 weeks in the office. Coding Level of Care Code None Diagnoses Status post section Z98.891
== END 2022-07-14 14:00 | disposition home or self-care (01) | DRG 785 ==
LOC: 4S1 06:55 → EDSTATUS 07:30 → 4E2 13:49

== ENCOUNTER 2023-04-27 08:54 | Observation (INO) ==
[2023-04-27] MEDS ORDERED: ACETAMINOPHEN 1,000 MG/100 ML VIAL IV STA (09:09)
--- NOTE | 2023-04-27 09:13 | Emergency Department Note ---
Impression & Plan Syncope and collapse, Acute neck pain, Lesion of bone of cervical spine ED Provider Note HISTORY OF PRESENT ILLNESS: Patient is a 32-year-old female presenting with headache and neck pain after syncopal episode. Patient reports she was getting a mammogram when the next thing she knew she woke up on the ground. No reported seizure-like activity. Patient denies any chest pain, shortness of breath or feeling lightheaded prior to the syncopal episode. She reportedly struck her head and then took a few seconds to come to. Patient is complaining of diffuse headache and midline neck pain. She not on anticoagulation. She has a family history of breast cancer and noticed a lump in her breast, prompting the mammogram to be performed. Denies any changes in vision, numbness or tingling or weakness in her extremities. ROS: as above PHYSICAL EXAM: Constitutional: Patient appears in no acute distress. HENT: Head: Normocephalic and atraumatic. Eyes: EOMI, PERRL Mouth/Throat: Mucous membranes moist. Neck: Trachea midline. Neck supple. Midline cervical spine tenderness to palpation. Patient is in a cervical collar. Cardiovascular: RRR, No murmurs, rubs or gallops. Intact distal pulses. Pulmonary/Chest: No respiratory distress. Breath sounds clear and equal bilaterally. No wheezes or rales. Back: No midline spinal tenderness, no paraspinal tenderness, no CVA tenderness. Musculoskeletal: No edema, tenderness or deformity noted. Skin: Warm and dry. No rash, erythema, pallor or cyanosis Psychiatric: Appropriate mood and affect for situation. Neurological: Alert and keenly responsive. CN II-XII grossly intact, moving all extremities equally and fully. MDM: - Vitals signs stable. - History obtained via patient. Patient presents with headache and neck pain after syncopal episode. Patient was getting a mammogram earlier today when she then woke up on the ground. No reported seizure-like activity. She denies any chest pain, shortness of breath or feeling lightheaded prior to the syncopal episode. She reportedly struck her head and then took a few seconds to come to. Patient is complaining of diffuse headache and neck pain. Denies anticoagulation use. Denies any changes in vision, numbness or tingling or weakness in her extremities. - Chronic conditions affecting care: None - Differential diagnoses include, but are not limited to: Dysrhythmia; electrolyte abnormality; pneumothorax; vasovagal syncope; ACS - Order placed for continuous cardiac monitoring. At this time, monitor showed rate of 65 bpm with normal sinus rhythm, per my interpretation. - External medical records reviewed. EMS run sheet was reviewed. Patient was vitally stable in route. She arrives in a c-collar. - EKG reviewed by myself showed normal sinus rhythm. Rate 61 bpm. QTc 440. No acute ischemic changes. No previous EKGs to compare to. - CT head wo contrast negative for acute intracranial pathology. - CT cervical spine wo contrast showed 2 cm lytic lesion on left side of C3 vertebral body extending into left C3 pedicle concerning for metastatic disease. Lower cervical and superior mediastinal lymphadenopathy. - Discussed case with breast radiologist, Dr. Valencia. She reports that the 1 picture obtained on the patient's mammogram was highly concerning for breast cancer. - Discussed case with oncologist on-call, Dr. Millan at 10:20 AM. He requested discussion with neurosurgery at a tertiary care facility given the cervical spine findings. Concerned that the patient may need radiation plus something else such as surgery - Discussed case with neurosurgeon at [facility], Dr. Arcenio Huynh at 10:55. He reports there is no urgent need for patient's transfer given her cervical spine lesions. He recommended obtaining an MRI of the spine with and without contrast. He did not feel the patient needed other MRI spinal imaging at this time unless she develops any neurological deficits. He recommended that the patient call the neurosurgery clinic ([phone]) for follow-up in 1 week. Instructed that the patient should remain in a collar at all times, including showering with it on. - Discussed case again with Dr. Millan. Discussed neurosurgery recommendations. He recommended that the patient get a full body CT scans and be admitted here. He can be added on as a consult in place to see the patient in the morning. Requested that hospitalist service not start prophylactic anticoagulation as of yet, so that they can quickly move to a biopsy after CTs have resulted. Recommended keeping patient n.p.o. after midnight. - Laboratory workup interpreted by myself showed normal WBC; stable electrolytes; normal troponin - Discussion was had with home day care provider about patient's case and need for admission - Hospitalist consulted for admission - Patient admitted to [facility] hospitalist service for further evaluation and management. ASSESSMENT AND PLAN: Diagnosis: neck pain; syncope; lesion of bone on cervical spine Plan: admit Past Med/Surg History Medical History (Updated 04/27/23 @ 12:14 by Linette Norwood MD) Infertility with first /medications only. History of COVID-24 November 2021 -> mild symptoms. Obese Missed hx History of cervical dysplasia Surgical History (Updated 08/27/22 @ 14:50 by Francia Couch MD, FACOG) History of dilatation and curettage S/p bilateral myringotomy with tube placement S/P tympanoplasty right? Previous delivery affecting , antepartum History of low transverse section x 2 with tubal ligation S/P wisdom tooth extraction S/P LEEP of cervix Family History Grandmother (Maternal) Breast cancer Aunt Breast cancer Grandfather Heart murmur Other Twins, both liveborn Social History Smoking Status: Never smoker Second Hand Exposure: No; Do You Dip or Chew Tobacco: No; Hx Alcohol Use: No Hx Substance Use: No Preferred Language: Bahamian Communication Ability: Effective Visual Impairment: No Limitations Database Modeler Required: No Beliefs That Will Affect Care: None marital status: marital status details: Austin Almendarez (36) [phone] Current Living Situation: Spouse and Family Current Living Situation Comment: Pt lives with her Austin and dolores Edge 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 Feels Safe at Home: Yes Assistive Devices: None Allergies Allergies Allergy/AdvReac Type Severity Reaction Status Date / Time No Known Drug Allergies Allergy none Verified 04/27/23 11:35 Home Meds Home Medications Medication Instructions Recorded Confirmed prenat.vits,petrona,[id number] 1 tab PO QAM 07/04/22 04/27/23 acetaminophen 500 mg tablet 500 mg PO Q6H PRN Pain/Fever 04/27/23 04/27/23 Previous Rx's Medication Instructions Recorded breast pump #1 ea 05/08/22 Results & Data (ED) Vital Signs Vital Signs - 24 hr 04/27/23 09:11 11/20/23 09:15 04/27/23 09:15 Temperature 36.6 C Temperature Source Oral Pulse Rate 64 Pulse Rate [Apical] Respiratory Rate 16 16 Blood Pressure 125/82 Blood Pressure Mean 96 Pulse Oximetry 98 95 95 Oxygen Delivery Method Room Air Room Air Room Air Oxygen Flow Rate 0 Sepsis Recent Fever Within 48 Hours No Sepsis New/Unexplained Change in Mental Status No Sepsis Action Taken by Nursing No Action Required 04/27/23 09:16 Temperature Temperature Source Pulse Rate Pulse Rate [Apical] 65 Respiratory Rate 18 Blood Pressure Blood Pressure Mean Pulse Oximetry 96 Oxygen Delivery Method Room Air Oxygen Flow Rate Sepsis Recent Fever Within 48 Hours Sepsis New/Unexplained Change in Mental Status Sepsis Action Taken by Nursing Laboratory Data 04/27/23 09:30 04/27/23 09:30 Lab Results 04/27/23 Range/Units 09:30 WBC 8.43 (4.8-10.8) K/ul RBC 4.51 (4.20-5.40) M/uL Hgb 11.6 L (12.0-16.0) g/dl Hct 37.1 (37.0-47.0) % MCV 82.3 (80.0-100.0) fL MCH 25.7 (25.0-34.0) pg MCHC 31.3 L (32.0-36.0) g/dL RDW Std Deviation 40.7 (36.4-46.3) fL RDW Coeff of Ara 13.9 (11.5-14.5) % Plt Count 242 (130-400) K/uL MPV 10.2 (9.4-12.4) fL Immature Gran % (Auto) 0.2 % Neut % (Auto) 72.4 % Lymph % (Auto) 19.5 % [place] % (Auto) 6.2 % Eos % (Auto) 1.3 % Baso % (Auto) 0.4 % Neut # (Auto) 6.11 (1.40-6.50) K/uL Lymph # (Auto) 1.64 (1.20-3.40) K/uL [place] # (Auto) 0.52 (0.11-0.59) K/uL Eos # (Auto) 0.11 (0.00-0.50) K/uL Baso # (Auto) 0.03 (0.00-0.20) K/uL Immature Gran # (Auto) 0.02 (0.01-0.20) K/uL D-Dimer 410 (0-500) ug/L FEU Sodium 140 (136-145) mmol/L Potassium 3.9 (3.5-5.1) mmol/L Chloride 108 H (98-107) mmol/L Carbon Dioxide 26 (21-32) mmol/L Anion Gap 6 (3-11) BUN 11 (6-23) mg/dl Creatinine 0.76 (0.6-1.2) mg/dl Est Cr Clr Drug Dosing 114.0 ml/min Est GFR ( Amer) 118.6 ml/min Est GFR (Non-Af Amer) 102.3 ml/min BUN/Creatinine Ratio 14.5 (10-20) Glucose 94 (70-99(Fasting)) mg/dl Calcium 9.1 (8.6-10.3) mg/dl Magnesium 1.9 (1.7-2.4) mg/dl Total Bilirubin 0.8 (0.2-1.0) mg/dl AST 21 (13-39) U/L ALT 10 (7-52) U/L Alkaline Phosphatase 117 H (34-104) U/L Troponin I High Sens < 2.3 (0-14) pg/ml Total Protein 6.9 (6.0-8.3) gm/dl Albumin 3.9 (3.4-5.0) gm/dl Globulin 3.0 (2.5-4.0) gm/dl Albumin/Globulin Ratio 1.3 (0.9-2) Administered Medications Discontinued Medications Sodium Chloride (Nss) 1,000 mls @ 999 mls/hr IV .Q1H1M MIN Stop: 04/27/23 10:15 Last Infusion: 04/27/23 11:55 Dose: Infused Documented By: Admin: 04/27/23 09:28 Dose: 999 mls/hr Documented By: KV Acetaminophen (Ofirmev) 1,000 mg in 100 mls @ 400 mls/hr IV NOW STA Stop: 04/27/23 09:23 Last Infusion: 04/27/23 11:54 Dose: Infused Documented By: Admin: 04/27/23 09:28 Dose: 400 mls/hr Documented By: KV Imaging Data Radiologist's Impression: Cervical Spine CT 04/27/23 09:[address] DOSE: 1114.97 mGy.cm HISTORY: syncope; neck pain TECHNIQUE: Multiaxial CT images of the cervical spine were performed and reformatted in the sagittal and coronal plane without the use of contrast. A dose lowering technique was utilized adhering to the principles of ALARA. COMPARISON: None. FINDINGS: Left lower cervical and superior mediastinal lymphadenopathy is partially visualized. Dominant upper right paratracheal lymph node measures 13 mm in short axis diameter. Dominant right lower cervical lymph node measures 18 x 14 mm. Mild interlobular septal thickening within the lung apices. No pneumothorax. Straightening of the cervical spine. There is mild degenerative disc disease at C4-C5. There is a lytic lesion within the left side of the C3 vertebral body which extends into the left C3 pedicle. This measures approximately 2 cm. This is highly suspicious for metastatic focus. Mild indentation at the inferior endplate of C3 consistent with an age-indeterminate pathologic compression fracture. IMPRESSION: 1. There is a 2 cm lytic lesion within the left side of the C3 vertebral body which extends into the left C3 pedicle. This is highly suspicious for a metastatic focus. 2. Mild indentation at the inferior endplate of C3 consistent with an age- indeterminate pathologic compression fracture. 3. Partially visualized lower cervical and superior mediastinal lymphadenopathy. This is highly suspicious for a neoplastic process. 4. Mild interlobular septal thickening within the lung apices. This could represent mild congestive change. ACT 112: Negative or not required by law. Electronically signed by: Lucio Calabrese M.D. 04/27/2023 9:[address] 04/27/23 09:10 CT SCAN OF THE BRAIN WITHOUT IV CONTRAST CLINICAL HISTORY: Syncope. COMPARISON STUDY: No priors. TECHNIQUE: Unenhanced axial CT scan of the brain is performed from the vertex to the skull base. A dose lowering technique was utilized adhering to the principles of ALARA. FINDINGS: Brain parenchyma: The brain parenchyma is normal in appearance. There is no hemorrhage, mass effect, or evidence of acute territorial ischemia by CT criteria. Najera-white matter differentiation is preserved. No extra-axial fluid collection is seen. Ventricles, sulci, cisterns: Normal in configuration. Intracranial vasculature: The visualized intracranial vasculature at the skull base is normal in appearance. Calvarium: There is no depressed calvarial fracture. No lytic or blastic lesion is seen. Soft tissues: There is a right parietal scalp contusion. Sinuses and mastoids: The visualized paranasal sinuses are clear. The mastoid air cells are well pneumatized. Orbits: The bony orbits are grossly intact. IMPRESSION: No acute intracranial abnormality. ACT 112: Negative or not required by law. Electronically signed by: Ta Laura M.D. 04/27/2023 9:56 AM Discharge Plan Visit Data Chief Complaint: Syncope Stated Complaint: SYNCOPE, FALL ED Provider: Linette Norwood Discharge Problem: Syncope and collapse, Acute neck pain, Lesion of bone of cervical spine Forms Stand Alone Forms: [facility] Prescriptions Prescriptions: No Action (DME) breast pump Device See Rx Instructions .ROUTE .MEDSUPPLY Qty: 1 0RF Rx Instructions: Pt already has a breast pump prenat.vits,petrona,[id number] Tablet 1 tab PO QAM acetaminophen [Tylenol Ex Str Rapid Release] 500 mg Tablet 500 mg PO Q6H PRN (Reason: Pain/Fever) Referrals Referrals: Nette Altamirano [Registered Nurse] -
[2023-04-27] MEDS ORDERED: SODIUM CHLORIDE 0.9% 1,000 ML IV SCH (09:15)
[2023-04-27 09:53] LABS: Basophils # (auto) 0.03 K/uL (0.00-0.20); Basophils % (auto) 0.4 %; Eosinophils # (auto) 0.11 K/uL (0.00-0.50); Eosinophils % (auto) 1.3 %; Hematocrit (blood only) 37.1 % (37.0-47.0); Hemoglobin 11.6 g/dl (12.0-16.0); Immature Granulocytes # (auto) 0.02 K/uL (0.01-0.20); Immature Granulocytes % (auto) 0.2 %; Lymphocytes # (auto) 1.64 K/uL (1.20-3.40); Lymphocytes % (auto) 19.5 %; Mean Corpuscular Hemoglobin 25.7 pg (25.0-34.0); Mean Corpuscular Hgb Conc 31.3 g/dL (32.0-36.0); Mean Corpuscular Volume 82.3 fL (80.0-100.0); Mean Platelet Volume 10.2 fL (9.4-12.4); Monocytes # (auto) 0.52 K/uL (0.11-0.59); Monocytes % (auto) 6.2 %; Neutrophils # (auto) 6.11 K/uL (1.40-6.50); Neutrophils % (auto) 72.4 %; Platelet Count 242 K/uL (130-400); RDW Coefficient of Variation 13.9 % (11.5-14.5); RDW Standard Deviation 40.7 fL (36.4-46.3); Red Blood Count 4.51 M/uL (4.20-5.40); White Blood Count 8.43 K/ul (4.8-10.8)
--- NOTE | 2023-04-27 09:53 | CT Scan Report ---
CERVICAL SPINE CT CT DOSE: 1114.97 mGy.cm HISTORY: syncope; neck pain TECHNIQUE: Multiaxial CT images of the cervical spine were performed and reformatted in the sagittal and coronal plane without the use of contrast. A dose lowering technique was utilized adhering to th e principles of ALARA. COMPARISON: None. FINDINGS: Left lower cervical and superior mediastinal lymphadenopathy is partially visualized. Domin ant upper right paratracheal lymph node measures 13 mm in short axis diameter. Dominant right lower c ervical lymph node measures 18 x 14 mm. Mild interlobular septal thickening within the lung apices. N o pneumothorax. Straightening of the cervical spine. There is mild degenerative disc disease at C4-C5 . There is a lytic lesion within the left side of the C3 vertebral body which extends into the left C 3 pedicle. This measures approximately 2 cm. This is highly suspicious for metastatic focus. Mild ind entation at the inferior endplate of C3 consistent with an age-indeterminate pathologic compression f racture. IMPRESSION: 1. There is a 2 cm lytic lesion within the left side of the C3 vertebral body which extends into the left C3 pedicle. This is highly suspicious for a metastatic focus. 2. Mild indentation at the inferior endplate of C3 consistent with an age-indeterminate pathologic co mpression fracture. 3. Partially visualized lower cervical and superior mediastinal lymphadenopathy. This is highly suspi cious for a neoplastic process. 4. Mild interlobular septal thickening within the lung apices. This could represent mild congestive c hange. ACT 112: Negative or not required by law. Electronically signed by: Lucio Calabrese M.D. 04/27/2023 9:51 AM
--- NOTE | 2023-04-27 09:58 | CT Scan Report ---
CT SCAN OF THE BRAIN WITHOUT IV CONTRAST CLINICAL HISTORY: Syncope. COMPARISON STUDY: No priors. TECHNIQUE: Unenhanced axial CT scan of the brain is performed from the vertex to the skull base. A d ose lowering technique was utilized adhering to the principles of ALARA. FINDINGS: Brain parenchyma: The brain parenchyma is normal in appearance. There is no hemorrhage, mass effect, or evidence of acute territorial ischemia by CT criteria. Najera-white matter differentiation is preser jose l. No extra-axial fluid collection is seen. Ventricles, sulci, cisterns: Normal in configuration. Intracranial vasculature: The visualized intracranial vasculature at the skull base is normal in appe arance. Calvarium: There is no depressed calvarial fracture. No lytic or blastic lesion is seen. Soft tissues: There is a right parietal scalp contusion. Sinuses and mastoids: The visualized paranasal sinuses are clear. The mastoid air cells are well pneu matized. Orbits: The bony orbits are grossly intact. IMPRESSION: No acute intracranial abnormality. ACT 112: Negative or not required by law. Electronically signed by: Ta Laura M.D. 04/27/2023 9:56 AM
[2023-04-27 10:06] LABS: Alanine Aminotransferase 10 U/L (7-52); Albumin Globulin Ratio 1.3 (0.9-2); Albumin Level 3.9 gm/dl (3.4-5.0); Alkaline Phosphatase 117 U/L (34-104); Anion Gap 6 (3-11); Aspartate Aminotransferase 21 U/L (13-39); BUN Creatinine Ratio 14.5 (10-20); Bilirubin,Total 0.8 mg/dl (0.2-1.0); Blood Urea Nitrogen 11 mg/dl (6-23); Calcium 9.1 mg/dl (8.6-10.3); Carbon Dioxide 26 mmol/L (21-32); Chloride 108 mmol/L (98-107); Est GFR (African American) 118.6 ml/min; Est GFR (Non-African American) 102.3 ml/min; Glucose 94 mg/dl (70-99(Fasting)); Magnesium 1.9 mg/dl (1.7-2.4); Potassium 3.9 mmol/L (3.5-5.1); Sodium 140 mmol/L (136-145); Total Protein 6.9 gm/dl (6.0-8.3)
[2023-04-27 10:13] LABS: Troponin I High Sensitivity < 2.3 pg/ml (0-14)
[2023-04-27 10:20] LABS: D Dimer 410 ug/L FEU (0-500)
--- NOTE | 2023-04-27 12:06 | History & Physical Report ---
Date of Service April 27, 2023 Assessment & Plan (1) Metastatic disease: Plan: Diagnosis new today (patient had syncopal event while having mammogram). Patient and family aware suspected metastatic breast cancer to liver/bone/lung. Planning on US guided lymph node biopsy tomorrow with Ced Cunningham - no need to be NPO for this Consult oncology - discussed with Dr Millna who will see tomorrow Consult radiation oncology (2) Lesion of bone of cervical spine: Plan: No radicular symptoms but concerning for high risk of compression with subsequent cord compression [place] J collar pending outpatient neurosurgery assessment Patient to call to set up appointment next week Consult radiation oncology regarding this lesion (3) Pneumonia: Plan: Consolidation noted on CT but no symptoms of this and procalcitonin negative Given likely immunosuppressed state recommend short duration of antibiotics (4) Left breast mass: (5) Syncope and collapse: Plan: Suspect most likely vasovagal. Pt noted dizziness prior to syncope. Notes extensive history of fainting easily. No sudden weakness in extremities. However in setting of metastatic cancer and Plan VTE Prophylaxis - deferred prior to biopsy Diet - regular Disposition - admit to med/tele Admission and Anticipated Discharge Date Admission Date: April 27, 2023 History of Present Illness Chief Complaint: Syncope Primary Care Provider: Davin Crews Elvira Almendarez is a 32 year old female who presents to the ER after a syncopal event while having a mammogram. She reports dizziness prior to the fall. She notes multiple similar episodes ie. with the site of blood or when she is anxious causing her to loose consciousness. She was having neck pain after the fall therefore underwent CT cervical spine which was concerning for a metastatic lesion. ER discussed with neurosurgery at [place] and in the absence of neurological deficits recommended a cervical collar and follow up next week. She was referred to medicine due to syncope in setting of newly discovered suspected metastatic breast cancer. After giving in July she has had problems with a breast lump that was thought to be from blocked milk duct. 2 weeks ago she noticed this getting significant worse with swollen lymph nodes in her neck. She was seen by her configuration management specialist on April 22 and referred for the mammogram she had today. She reports a significant history of second degree relatives with breast cancer but none at such a young age. No fever, chills, respiratory symptoms. No pain, weakness or change in sensation in all 4 extremities. Allergies Allergy/AdvReac Type Severity Reaction Status Date / Time No Known Drug Allergies Allergy none Verified 04/27/23 11:35 Home Medications Medication Instructions Recorded Confirmed Type breast pump #1 ea 05/08/22 04/22/23 Rx prenat.vits,petrona,cbo-dlgc-vzmfx 1 tab PO QAM 07/04/22 04/27/23 History acetaminophen 500 mg tablet 500 mg PO Q6H PRN Pain/Fever 04/27/23 04/27/23 History Past Med/Surg History Medical History (Updated 04/28/23 @ 06:10 by Raudel Sanchez MD) Infertility with first /medications only. History of COVID-24 November 2021 -> mild symptoms. Obese Missed hx History of cervical dysplasia Surgical History (Updated 08/27/22 @ 14:50 by Francia Couch MD, FACOG) History of dilatation and curettage S/p bilateral myringotomy with tube placement S/P tympanoplasty right? Previous delivery affecting , antepartum History of low transverse section x 2 with tubal ligation S/P wisdom tooth extraction S/P LEEP of cervix Family History Grandmother (Maternal) Breast cancer Aunt Breast cancer Grandfather Heart murmur Other Twins, both liveborn Social History Smoking Status: Never smoker Second Hand Exposure: No; Do You Dip or Chew Tobacco: No; Hx Alcohol Use: No Hx Substance Use: No Preferred Language: Barbadian Communication Ability: Effective Visual Impairment: No Limitations Advertising Assistant Required: No Beliefs That Will Affect Care: None marital status: marital status details: Austin Almendarez (36) [phone] Current Living Situation: Family Current Living Situation Comment: Pt lives with her Austin and dolores [place] 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 Other Information That Helps Us Care for You: No Feels Safe at Home: Yes Safety Concerns: Feels Safe At This Time Assistive Devices: None Review of Systems Review of Systems: All systems reviewed & are unremarkable except as noted in HPI & below Physical Exam Constitutional: WD/WN, vitals as above Eyes: PERRL, conjunctivae normal, anicteric sclerae ENMT: external ear and nose normal, oropharynx normal Neck: Pt in [place] J collar Respiratory: normal respiratory effort, lungs clear to auscultation Cardiovascular: RRR, no murmur, no edema Gastrointestinal (Abdomen): normal bowel sounds, soft, nontender, no hepatosplenomegaly Musculoskeletal: no cyanosis or clubbing, extremities motor strength 5/5 Skin: no rashes, warm and dry Neurologic: moves all extremities and awake; no focal motor deficits and not confused Speech / Cognition: normal speech Motor/Sensory: no sensory deficit Psychiatric: Orientation: alert and oriented x 3 Lymphatic: + cervical lymphadenopathy (left sided) and + axillary lymphadenopathy (left sided) Results & Data Results & Data Vital Signs (Past 12 Hours) Vital Signs Temp Pulse Pulse Resp BP Pulse Ox O2 Del Method 04/27/23 09:16 65 18 96 Room Air 04/27/23 09:15 95 Room Air 04/27/23 09:15 16 95 Room Air 04/27/23 09:11 36.6 C 64 16 125/82 98 Room Air O2 Flow Rate 04/27/23 09:16 04/27/23 09:15 0 04/27/23 09:15 04/27/23 09:11 Laboratory Results Abnormal lab results 04/27/23 Range/Units 09:30 Hgb 11.6 L (12.0-16.0) g/dl MCHC 31.3 L (32.0-36.0) g/dL Chloride 108 H (98-107) mmol/L Alkaline Phosphatase 117 H (34-104) U/L Diagnostic Findings CT SCAN OF THE BRAIN WITHOUT IV CONTRAST CLINICAL HISTORY: Syncope. COMPARISON STUDY: No priors. TECHNIQUE: Unenhanced axial CT scan of the brain is performed from the vertex to the skull base. A dose lowering technique was utilized adhering to the principles of ALARA. FINDINGS: Brain parenchyma: The brain parenchyma is normal in appearance. There is no hem orrhage, mass effect, or evidence of acute territorial ischemia by CT criteria. Najera-white matter differentiation is preserved. No extra-axial fluid collection is seen. Ventricles, sulci, cisterns: Normal in configuration. Intracranial vasculature: The visualized intracranial vasculature at the skull base is normal in appearance. Calvarium: There is no depressed calvarial fracture. No lytic or blastic lesion is seen. Soft tissues: There is a right parietal scalp contusion. Sinuses and mastoids: The visualized paranasal sinuses are clear. The mastoid air cells are well pneumatized. Orbits: The bony orbits are grossly intact. IMPRESSION: No acute intracranial abnormality. CERVICAL SPINE CT CT DOSE: 1114.97 mGy.cm HISTORY: syncope; neck pain TECHNIQUE: Multiaxial CT images of the cervical spine were performed and reformatted in the sagittal and coronal plane without the use of contrast. A dose lowering technique was utilized adhering to the principles of ALARA. COMPARISON: None. FINDINGS: Left lower cervical and superior mediastinal lymphadenopathy is partially visualized. Dominant upper right paratracheal lymph node measures 13 mm in short axis diameter. Dominant right lower cervical lymph node measures 18 x 14 mm. Mild interlobular septal thickening within the lung apices. No pneumothorax. Straightening of the cervical spine. There is mild degenerative disc disease at C4-C5. There is a lytic lesion within the left side of the C3 vertebral body which extends into the left C3 pedicle. This measures approximately 2 cm. This is highly suspicious for metastatic focus. Mild indentation at the inferior endplate of C3 consistent with an age-indeterminate pathologic compression fracture. IMPRESSION: 1. There is a 2 cm lytic lesion within the left side of the C3 vertebral body which extends into the left C3 pedicle. This is highly suspicious for a metastatic focus. 2. Mild indentation at the inferior endplate of C3 consistent with an age-indete rminate pathologic compression fracture. 3. Partially visualized lower cervical and superior mediastinal lymphadenopathy. This is highly suspicious for a neoplastic process. 4. Mild interlobular septal thickening within the lung apices. This could represent mild congestive change. CT SCAN OF THE CHEST WITH IV CONTRAST CLINICAL HISTORY: Breast mass. Metastatic bone lesions. COMPARISON STUDY: No priors. TECHNIQUE: Following the IV administration of 24 cc of Optiray 320, CT scan of the thorax was performed from the thoracic inlet to the upper abdomen. Images are reviewed in the axial, sagittal, and coronal planes. IV contrast was administered without complication. A dose lowering technique was utilized adhering to the principles of ALARA. CT DOSE: 1947.25 mGy.cm FINDINGS: Thyroid: Imaged portions of the thyroid gland are normal in size and attenuation. Thoracic aorta: The thoracic aorta is normal in caliber and demonstrates standard 3-vessel arch anatomy. No dissection is seen. Pulmonary vasculature: The pulmonary trunk is normal in caliber. There are no filling defects identified in the central pulmonary vessels to indicate pulmonary embolus. Note that this examination was not protocoled for evaluation of the pulmonary arteries. Heart: The heart is normal in size and without pericardial effusion. Lungs and pleural spaces: There is airspace consolidation at the medial left lung base. Foci of intralobular septal thickening and nodularity are seen throughout both lungs, greatest at the right apex and in both lower lobes. No pleural effusion is identified. Lower neck: A pathologically enlarged right supraclavicular lymph node on image #12 measures 2.2 x 1.6 cm. A pathologically enlarged left cervical ventricular node on image #13 measures 2.2 x 1.2 cm. Mediastinum: There are numerous mildly enlarged mediastinal lymph nodes. A right paratracheal node on image #42 measures 1.5 x 1.2 cm. Marta: There is bilateral hilar adenopathy. A right hilar node on image #76 measu res 2.4 x 1.4 cm. Axillae: There are pathologically enlarged left axillary lymph nodes. The largest is seen on image #31 and measures 1.8 x 1.4 cm. No right axillary adenopathy is identified. Upper abdomen: Partially visualized upper abdominal viscera is within normal limits. Skeletal structures: No lytic or blastic bony lesions are seen in the thorax. Soft tissues: A large heterogeneously enhancing mass is partially imaged in the left breast. This measures at least 5.3 cm as seen on image #71. IMPRESSION: 1. A large and heterogeneously enhancing mass lesion is partially visualized in the left breast. There may be multifocal lesions in the left breast. 2. There are pathologically enlarged left axillary, bilateral supraclavicular, mediastinal, and hilar lymphadenopathy. This is typical for metastatic disease. 3. Foci of intralobular septal thickening and nodularity are seen throughout both lungs as above. Lymphangitic spread of tumor is the diagnosis of exclusion. 4. There is airspace consolidation at the medial left lung base. Correlate clinically for evidence of pneumonia. 5. No destructive bony lesions are identified in the thorax. 6. Additional findings as above. CT abd pelvis IV con only CLINICAL HISTORY: suspected metastatic breat cancer TECHNIQUE: Helical axial images of the abdomen and pelvis were obtained and displayed. Automated dose lowering techniques and/or adjustment according to patient size were utilized for this exam. This exam was performed with intravenous contrast. COMPARISON: Comparison is made to pelvic ultrasound 06/06/2019 FINDINGS: Lower chest: For findings above the diaphragm, please see CT chest performed same day. Liver: Multiple hypodensities are seen in the right lobe of liver measuring up to 43 mm in diameter, concerning for malignancy. Gallbladder and biliary tree: Cholelithiasis is seen without evidence of cholecystitis. No intra- or extrahepatic biliary ductal dilation. Pancreas: Unremarkable, no focal lesions. Spleen: Unremarkable. Adrenals: Unremarkable. Kidneys and ureters: Unremarkable. Bladder: Unremarkable. Reproductive organs: Unremarkable. Bowel: Unremarkable. Lymph nodes Retroperitoneal: Subcentimeter lymph nodes are noted. Pelvic: Unremarkable. Mesenteric: Unremarkable. Peritoneum: There is a 9 x 7 mm nodule in the splenic hilum which likely represents a splenule. Attention on follow-up is recommended to exclude peritoneal deposit. Vessels: Unremarkable. Abdominal wall: Unremarkable. Bones: Unremarkable. IMPRESSION: 1. Right hepatic lesions are concerning for metastatic disease in this patient with history of breast cancer. 2. Retroperitoneal lymph nodes are subcentimeter, nonspecific but likely benign. Prominent nas hepatis lymph nodes are noted. 3. Cholelithiasis without cholecystitis. Brain MRI WITH AND WITHOUT CONTRAST HISTORY: Syncope, metastatic disease TECHNIQUE: Multiplanar multisequence MRI of the brain was performed both before and after the intravenous administration of contrast. COMPARISON STUDY: Head CT 04/27/2023. FINDINGS: There are no areas of restricted diffusion to suggest acute infarction. The midline structures are intact. The paranasal sinuses are clear. The mastoid air cells are clear. The ventricles and sulci are within normal limits for age. There is no mass, hematoma, midline shift. The major vascular flow-voids at the skull base are well maintained. No intracranial lesions identified. However, there is decreased T1 signal within the left frontal bone with minimal underlying dural enhancement best seen on axial images 14 and 15. Therefore, this is suspicious for an osseous metastatic lesion. The C3 metastatic focus is better present on the same day cervical spine MRI. There is an additional osseous metastatic focus within the left occipital bone near the skull base. IMPRESSION: 1. Asymmetric T1 hypointense signal within the left frontal bone with minimal underlying dural enhancement. This is consistent with an osseous metastatic lesion. The underlying dural enhancement may be reactive. Early metastatic change would be difficult to exclude. Follow-up recommended to ensure stability. 2. Otherwise, no intracranial lesions identified. 3. The C3 metastatic focus is better appreciated on the same day cervical spine MRI. 4. There is an additional metastatic focus within the left occipital bone near the skull base. MRI OF THE CERVICAL SPINE COMBO CLINICAL HISTORY: Osteolytic bone disease. COMPARISON STUDY: CT of the cervical spine dated 04/27/2023. TECHNIQUE: MRI of the cervical spine was performed utilizing various T1 and T2- weihgted sequences in the axial and sagittal planes. Contrast enhanced sequences are acquired following the IV administration of 9 cc of Gadavist. FINDINGS: Cervical spine: Vertebral body height and alignment are maintained throughout the cervical spine. There is straightening of the cervical lordosis. Small anterior osteophytes are noted. The atlantodens articulation is maintained. The spinous processes appear intact. Again seen is a destructive bone lesion within the body of C3. This is T1 hypointense, T2 hyperintense, and shows postcontrast enhancement. This also involves the spinous process of C3 as seen on sagittal image #8. No additional destructive bony lesion is clearly identified involving the cervical spine. There may also be a lesion within the left transverse process of T1 seen on axial image #140. The lesion is suggested in the left occiput on sagittal image #13. Chronic degenerative endplate change and endplate edema is noted at C4-C5. Intervertebral discs: Disc desiccation is seen throughout the cervical spine. There is mild loss of height at C4-C5. Spinal cord: The cervical cord is normal in morphology and signal intensity. No abnormal postcontrast enhancement is identified. C2-C3: Unremarkable. C3-C4: Uncovertebral and facet arthropathy contribute to mild bilateral neural foraminal stenosis. The central canal is clear. C4-C5: A posterior disc osteophyte complex minimally effaces the ventral cord. Uncovertebral and facet arthropathy contribute to moderate to severe bilateral neural foraminal stenosis, left greater than right. C5-C6: Mild facet arthropathy is of no consequence. The central canal and neural foramina are patent. C6-C7: Unremarkable. C7-T1: Unremarkable. Soft tissues: The prevertebral and paraspinous soft tissues are normal in appearance. Pathological cervical lymphadenopathy is seen bilaterally. A right supraclavicular node on image #136 measures 1.9 x 1.7 cm. A left cervical chain node on image #99 measures 1.4 x 1.2 cm. Brain parenchyma: The visualized brain parenchyma at the skull base is within normal limits. IMPRESSION: 1. There is evidence of bony metastatic disease involving body of C3 as seen by CT. There is also involvement of the spinous process at this level. 2. There may also be lesions within the left transverse process of T1 as well as the left occiput. 3. The cervical cord is normal in morphology and signal intensity with no abnormal postcontrast enhancement. 4. Pathological lymphadenopathy in the neck as above. This is also typical for metastatic disease. 5. Spondylotic changes as above, greatest at C4-C5. 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.52 Area of secondary neoplastic involvement: bone marrow Lesion of bone of cervical spine M89.9 Pneumonia of left lower lobe due to infectious organism J18.9 Laterality: left Lung location: lower lobe of lung Pneumonia type: due to unspecified organism Left breast mass N63.20 Syncope and collapse R55 (1) Metastatic disease Area of secondary neoplastic involvement: bone marrow Qualified Code(s): C79 .52 - Secondary malignant neoplasm of bone marrow (3) Pneumonia Laterality: left Lung location: lower lobe of lung Pneumonia type: due to unspecified organism Qualified Code(s): J18.9 - Pneumonia, unspecified organism
[2023-04-27 12:13] LABS: Appearance Urine Clear (Clear); Bilirubin Urine Negative (Negative); Blood Urine Negative (Negative); Color Urine Yellow; Glucose Urine UA Negative (Negative); Ketones Urine Negative (Negative); Leukocyte Esterase Urine Negative (Negative); Nitrite Urine Negative (Negative); Protein Urine Negative (Negative); Specific Gravity Urine 1.009 (1.000-1.030); Urobilinogen Urine Negative (Negative)
[2023-04-27] MEDS ORDERED: GADOBUTROL 65ML VIAL IV ONE (13:50)
[2023-04-27] MEDS ORDERED: OPTIRAY 320 500ml IV ONE (14:21)
--- NOTE | 2023-04-27 15:03 | CT Scan Report ---
CT abd pelvis IV con only CLINICAL HISTORY: suspected metastatic breat cancer TECHNIQUE: Helical axial images of the abdomen and pelvis were obtained and displayed. Automated dose lowering techniques and/or adjustment according to patient size were utilized for this exam. This e xam was performed with intravenous contrast. COMPARISON: Comparison is made to pelvic ultrasound 06/06/2019 FINDINGS: Lower chest: For findings above the diaphragm, please see CT chest performed same day. Liver: Multiple hypodensities are seen in the right lobe of liver measuring up to 43 mm in diameter, concerning for malignancy. Gallbladder and biliary tree: Cholelithiasis is seen without evidence of cholecystitis. No intra- or extrahepatic biliary ductal dilation. Pancreas: Unremarkable, no focal lesions. Spleen: Unremarkable. Adrenals: Unremarkable. Kidneys and ureters: Unremarkable. Bladder: Unremarkable. Reproductive organs: Unremarkable. Bowel: Unremarkable. Lymph nodes Retroperitoneal: Subcentimeter lymph nodes are noted. Pelvic: Unremarkable. Mesenteric: Unremarkable. Peritoneum: There is a 9 x 7 mm nodule in the splenic hilum which likely represents a splenule. Atten tion on follow-up is recommended to exclude peritoneal deposit. Vessels: Unremarkable. Abdominal wall: Unremarkable. Bones: Unremarkable. IMPRESSION: 1. Right hepatic lesions are concerning for metastatic disease in this patient with history of breas t cancer. 2. Retroperitoneal lymph nodes are subcentimeter, nonspecific but likely benign. Prominent nas hep atis lymph nodes are noted. 3. Cholelithiasis without cholecystitis. ACT 112: Negative or not required by law. Electronically signed by: Geo Ortega M.D. 04/27/2023 3:01 PM
--- NOTE | 2023-04-27 15:04 | CT Scan Report ---
CT SCAN OF THE CHEST WITH IV CONTRAST CLINICAL HISTORY: Breast mass. Metastatic bone lesions. COMPARISON STUDY: No priors. TECHNIQUE: Following the IV administration of 24 cc of Optiray 320, CT scan of the thorax was perform ed from the thoracic inlet to the upper abdomen. Images are reviewed in the axial, sagittal, and josh nal planes. IV contrast was administered without complication. A dose lowering technique was utilize d adhering to the principles of ALARA. CT DOSE: 1947.25 mGy.cm FINDINGS: Thyroid: Imaged portions of the thyroid gland are normal in size and attenuation. Thoracic aorta: The thoracic aorta is normal in caliber and demonstrates standard 3-vessel arch anato my. No dissection is seen. Pulmonary vasculature: The pulmonary trunk is normal in caliber. There are no filling defects identif ied in the central pulmonary vessels to indicate pulmonary embolus. Note that this examination was no t protocoled for evaluation of the pulmonary arteries. Heart: The heart is normal in size and without pericardial effusion. Lungs and pleural spaces: There is airspace consolidation at the medial left lung base. Foci of intra lobular septal thickening and nodularity are seen throughout both lungs, greatest at the right apex a nd in both lower lobes. No pleural effusion is identified. Lower neck: A pathologically enlarged right supraclavicular lymph node on image #12 measures 2.2 x 1. 6 cm. A pathologically enlarged left cervical ventricular node on image #13 measures 2.2 x 1.2 cm. Mediastinum: There are numerous mildly enlarged mediastinal lymph nodes. A right paratracheal node on image #42 measures 1.5 x 1.2 cm. Marta: There is bilateral hilar adenopathy. A right hilar node on image #76 measures 2.4 x 1.4 cm. Axillae: There are pathologically enlarged left axillary lymph nodes. The largest is seen on image #3 1 and measures 1.8 x 1.4 cm. No right axillary adenopathy is identified. Upper abdomen: Partially visualized upper abdominal viscera is within normal limits. Skeletal structures: No lytic or blastic bony lesions are seen in the thorax. Soft tissues: A large heterogeneously enhancing mass is partially imaged in the left breast. This romaine sures at least 5.3 cm as seen on image #71. IMPRESSION: 1. A large and heterogeneously enhancing mass lesion is partially visualized in the left breast. Ther e may be multifocal lesions in the left breast. 2. There are pathologically enlarged left axillary, bilateral supraclavicular, mediastinal, and hilar lymphadenopathy. This is typical for metastatic disease. 3. Foci of intralobular septal thickening and nodularity are seen throughout both lungs as above. Lym phangitic spread of tumor is the diagnosis of exclusion. 4. There is airspace consolidation at the medial left lung base. Correlate clinically for evidence of pneumonia. 5. No destructive bony lesions are identified in the thorax. 6. Additional findings as above. ACT 112: Negative or not required by law. Electronically signed by: Ta Laura M.D. 04/27/2023 3:03 PM
--- NOTE | 2023-04-27 15:14 | Magnetic Resonance Report ---
Brain MRI WITH AND WITHOUT CONTRAST HISTORY: Syncope, metastatic disease TECHNIQUE: Multiplanar multisequence MRI of the brain was performed both before and after the intrave nous administration of contrast. COMPARISON STUDY: Head CT 04/27/2023. FINDINGS: There are no areas of restricted diffusion to suggest acute infarction. The midline structu res are intact. The paranasal sinuses are clear. The mastoid air cells are clear. The ventricles and sulci are within normal limits for age. There is no mass, hematoma, midline shift. The major vascular flow-voids at the skull base are well maintained. No intracranial lesions identified. However, there is decreased T1 signal within the left frontal bone with minimal underlying dural enhancement best s een on axial images 14 and 15. Therefore, this is suspicious for an osseous metastatic lesion. The C3 metastatic focus is better present on the same day cervical spine MRI. There is an additional osseou s metastatic focus within the left occipital bone near the skull base. IMPRESSION: 1. Asymmetric T1 hypointense signal within the left frontal bone with minimal underlying dural enhanc ement. This is consistent with an osseous metastatic lesion. The underlying dural enhancement may be reactive. Early metastatic change would be difficult to exclude. Follow-up recommended to ensure stab ility. 2. Otherwise, no intracranial lesions identified. 3. The C3 metastatic focus is better appreciated on the same day cervical spine MRI. 4. There is an additional metastatic focus within the left occipital bone near the skull base. ACT 112: Negative or not required by law. Electronically signed by: Lucio Calabrese M.D. 04/27/2023 3:13 PM
[2023-04-27] MEDS ORDERED: AZITHROMYCIN 500 MG in DEXTROSE 5% 250 ML IV STA (15:43)
[2023-04-27] MEDS ORDERED: cefTRIAXone SODIUM 2,000 MG in DEXTROSE 5 % MINI-B 50 ML IV STA (15:43)
--- NOTE | 2023-04-27 17:23 | Magnetic Resonance Report ---
MRI OF THE CERVICAL SPINE COMBO CLINICAL HISTORY: Osteolytic bone disease. COMPARISON STUDY: CT of the cervical spine dated 04/27/2023. TECHNIQUE: MRI of the cervical spine was performed utilizing various T1 and T2-weihgted sequences in the axial and sagittal planes. Contrast enhanced sequences are acquired following the IV administrati on of 9 cc of Gadavist. FINDINGS: Cervical spine: Vertebral body height and alignment are maintained throughout the cervical spine. The re is straightening of the cervical lordosis. Small anterior osteophytes are noted. The atlantodens a rticulation is maintained. The spinous processes appear intact. Again seen is a destructive bone lesi on within the body of C3. This is T1 hypointense, T2 hyperintense, and shows postcontrast enhancement . This also involves the spinous process of C3 as seen on sagittal image #8. No additional destructiv e bony lesion is clearly identified involving the cervical spine. There may also be a lesion within t he left transverse process of T1 seen on axial image #140. The lesion is suggested in the left occipu t on sagittal image #13. Chronic degenerative endplate change and endplate edema is noted at C4-C5. Intervertebral discs: Disc desiccation is seen throughout the cervical spine. There is mild loss of h eight at C4-C5. Spinal cord: The cervical cord is normal in morphology and signal intensity. No abnormal postcontrast enhancement is identified. C2-C3: Unremarkable. C3-C4: Uncovertebral and facet arthropathy contribute to mild bilateral neural foraminal stenosis. Th e central canal is clear. C4-C5: A posterior disc osteophyte complex minimally effaces the ventral cord. Uncovertebral and face t arthropathy contribute to moderate to severe bilateral neural foraminal stenosis, left greater than right. C5-C6: Mild facet arthropathy is of no consequence. The central canal and neural foramina are patent. C6-C7: Unremarkable. C7-T1: Unremarkable. Soft tissues: The prevertebral and paraspinous soft tissues are normal in appearance. Pathological cervical lymphadenopathy is seen bilaterally. A right supraclavicular node on image #136 measures 1.9 x 1.7 cm. A left cervical chain node on image #99 measures 1.4 x 1.2 cm. Brain parenchyma: The visualized brain parenchyma at the skull base is within normal limits. IMPRESSION: 1. There is evidence of bony metastatic disease involving body of C3 as seen by CT. There is also inv olvement of the spinous process at this level. 2. There may also be lesions within the left transverse process of T1 as well as the left occiput. 3. The cervical cord is normal in morphology and signal intensity with no abnormal postcontrast enhan cement. 4. Pathological lymphadenopathy in the neck as above. This is also typical for metastatic disease. 5. Spondylotic changes as above, greatest at C4-C5. Dictated: 04/27/2023 2:25 PM Transcribed: 04/27/2023 2:54 PM Chas [id number] Electronically signed by: Ta Laura M.D. 04/27/2023 5:20 PM
[2023-04-27] MEDS ORDERED: ONDANSETRON INJ 2 MG/ML 2 ML VIAL IV PRN (20:24)
[2023-04-27] MEDS ORDERED: hydrOXYzine HCl 25 MG TAB PO STA (21:36)
[2023-04-27] MEDS ORDERED: ACETAMINOPHEN 325 MG TAB PO PRN (21:41)
--- NOTE | 2023-04-27 22:17 | Electrocardiogram Report ---
Test Reason : Blood Pressure : / mmHG Vent. Rate : 061 BPM Atrial Rate : 061 BPM P-R Int : 194 ms QRS Dur : 082 ms QT Int : 438 ms P-R-T Axes : 038 008 015 degrees QTc Int : 440 ms Sinus rhythm with marked sinus arrhythmia Cannot rule out Anterior infarct , age undetermined Abnormal ECG No previous ECGs available Confirmed by Bi Heaton ([id number]) on 04/27/2023 10:17:13 PM Referred By: REFERRED SELF Confirmed By:Bi Heaton
[2023-04-27] MEDS: ACETAMINOPHEN 325 MG TAB PO PRN (22:50)
[2023-04-28 05:14] LABS: Basophils # (auto) 0.03 K/uL (0.00-0.20); Basophils % (auto) 0.4 %; Eosinophils # (auto) 0.09 K/uL (0.00-0.50); Eosinophils % (auto) 1.1 %; Hematocrit (blood only) 38.4 % (37.0-47.0); Hemoglobin 12.5 g/dl (12.0-16.0); Immature Granulocytes # (auto) 0.03 K/uL (0.01-0.20); Immature Granulocytes % (auto) 0.4 %; Lymphocytes # (auto) 2.29 K/uL (1.20-3.40); Lymphocytes % (auto) 27.2 %; Mean Corpuscular Hgb Conc 32.6 g/dL (32.0-36.0); Mean Platelet Volume 9.7 fL (9.4-12.4); Monocytes # (auto) 0.48 K/uL (0.11-0.59); Monocytes % (auto) 5.7 %; Neutrophils % (auto) 65.2 %; Platelet Count 286 K/uL (130-400); RDW Coefficient of Variation 13.9 % (11.5-14.5); RDW Standard Deviation 40.3 fL (36.4-46.3); White Blood Count 8.42 K/ul (4.8-10.8)
[2023-04-28 05:25] LABS: Bilirubin,Total 0.8 mg/dl (0.2-1.0); INR 1.1 (0.9-1.1); Potassium 3.6 mmol/L (3.5-5.1); Prothrombin Time 11.9 Seconds (9.0-12.0)
[2023-04-28 05:31] LABS: Albumin Globulin Ratio 1.3 (0.9-2); BUN Creatinine Ratio 13.3 (10-20); Creatinine Clr Calc Pharmacy 115.5 ml/min; Est GFR (African American) 120.5 ml/min
--- NOTE | 2023-04-28 06:40 | Hospitalist Progress Note ---
Date of Service April 28, 2023 Assessment & Plan Plan 32 y/o female here due to recent diagnose of Metastatic breas cancer to liver/bone/ lung Metastatic disease: -Metastatic breast cancer to liver/ bone/ lung -Diagnose in this admission -Syncopal event while having mammogram -Consult oncology - discussed with Dr Millan who will see tomorrow - Consult radiation oncology: -CT stimulation for treatment planning for radiation therapy Lesion of bone of cervical spine: No radicular symptoms but concerning for high risk of compression with subsequent cord compression [place] J collar pending outpatient neurosurgery assessment Patient to call to set up appointment next week Consult radiation oncology regarding this lesion Pneumonia: Consolidation noted on CT but no symptoms of this and procalcitonin negative Given likely immunosuppressed state recommend short duration of antibiotics Zithromax and Ceftriaxone Syncope and collapse: Suspect most likely vasovagal. Pt noted dizziness prior to syncope. Notes extensive history of fainting easily. No sudden weakness in extremities. However in setting of metastatic cancer and Plan VTE Prophylaxis - deferred prior to biopsy Diet - regular Disposition - admit to med/tele Admission and Anticipated Discharge Date Admission Date: April 27, 2023 Subjective 32 y/o female who presents to the ER after syncopal even while having a mammogram. Reports dizziness prior to the fall. she report previous episodes when she sees blood or is anxious that causes her to loose consciousness. She was having neck pain after the fall therefore underwent CT cervical spine which was concerning for a metastatic lesion. ER discussed with neurosurgery at [facility] and in the absence of neurological deficits recommended a cervical collar and follow up next week. After giving in July she has had problems with a breast lump that was thought to be from blocked milk duct. 2 weeks ago she noticed this getting significant worse with swollen lymph nodes in her neck. She was seen by her manufacturing assistant on April 22 and referred for the mammogram she had today. She reports a significant history of second degree relatives with breast cancer but none at such a young age. Physical Exam Constitutional: WD/WN, vitals as above Respiratory: normal respiratory effort, lungs clear to auscultation Cardiovascular: RRR, no murmur, no edema Gastrointestinal (Abdomen): normal bowel sounds, soft, nontender, no hepatosplenomegaly Results & Data Results & Data Vital Signs (Past 12 Hours) Vital Signs Temp Pulse Pulse Pulse Resp BP Pulse Ox 04/28/23 04:07 36.6 C 70 18 91/55 L 96 04/28/23 01:45 86 04/28/23 01:01 63 04/27/23 21:24 04/27/23 21:00 36.9 C 81 20 107/73 96 O2 Del Method 04/28/23 04:07 Room Air 04/28/23 01:45 04/28/23 01:01 04/27/23 21:24 Room Air 04/27/23 21:00 Room Air Resident Activity Tracking Resident Involvement: Resident Care Provided Care Provided: Adult Hospital Medicine
[2023-04-28] MEDS: ACETAMINOPHEN 325 MG TAB PO PRN ×2 (07:47→14:46)
--- NOTE | 2023-04-28 08:18 | Radiation OncologyConsultation ---
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 Almendarez is a 32-year-old female who presents with a likely diagnosis of metastatic breast cancer. The patient recently self palpated a left breast mass. Patient did present to gynecology who urgently sent her for mammograms. At the imaging facility, the patient did have a syncopal episode which led her to the emergency room. She did have a diagnostic work-up including MRI imaging imaging of the cervical spine which does reveal metastatic disease including metastatic disease at C3 with no evidence of spinal cord compression. The patient is currently admitted to the hospital for pain management and further work-up and diagnosis. The patient is scheduled to undergo a image guided biopsy of a liver metastasis to confirm the diagnosis. I been asked to evaluate the patient regarding the role of palliative radiation therapy. Of note, the patient's case was discussed with [facility] neurosurgery and the recommendation was to follow-up in the outpatient setting. Treatment Options: 1. Surgical stabilization followed by adjuvant radiation therapy. 2. Palliative radiation therapy. Recommendation: Patient should be seen by neurosurgery first to confirm no role for surgical intervention. If there is no role for surgical intervention, the patient should be treated with palliative radiation therapy to the cervical spine. Plan: 1. CT simulation for treatment planning for radiation therapy. Consent obtained. Will wait to start radiation therapy until tissue diagnosis confirmed and neurosurgery consultation completed. Radiation therapy in the outpatient setting. 2. IR guided biopsy of liver metastasis to confirm tissue diagnosis. 3. Neurosurgery consultation at [facility]. Next week. 4. Medical oncology consultation. Input appreciated. 5. Continue current pain regimen as per primary hospital team. 6. PET/CT scan can be considered in the outpatient setting. 7. Patient and family encouraged to call us with any further questions or concerns. Rationale/Explanation of Treatment: I have explained the indications, alternatives, benefits, risks and side effects of radiation therapy. I have explained the most common side effects including but are not limited to skin erythema, skin break down, hair loss, fibrosis, adhesion development, heart failure and heart disease, esophagitis, esophageal stenosis, bowel obstruction, urinary symptoms, thyroid disorders, mucositis, nausea, vomiting, diarrhea, anemia, fatigue, carotid artery stenosis and development of secondary malignancy. Additionally, patients suffer may have xerostomia, stomatitis, glossitis, dysphagia, aspiration, mandibular osteoradionecrosis, mucocutaneous fistula formation, lymphedema in the neck, pharyngeal edema, mucositis, loss of taste. Women may also have early onset ovarian failure leading to premature menopause and may experience infertility issues depending on her age. I have explained the CT simulation process and treatment planning. I explained what to expect before, during and after treatment on a regular basis. The patient and had multiple questions which were answered to their full satisfaction. Thank you for allowing us to participate in the care of this patient. This chart was completed in part utilizing [employer] Speech Voice Recognition software. Attempts were made to minimize the grammatical errors, random word insertions, pronoun errors and incomplete sentences. Any formal questions or concerns about the content, text or information contained within the body of this dictation should be directly addressed to the provider for clarification. Geeta Quezada MD Department of Radiation Oncology [facility] History of Present Illness Attending Physician: Noé Smith DO History of Present Illness April 2023. Self detected left breast mass. 04/27/2023. Mammogram diagnostic. IMPRESSION: ACR BI-RADS CATEGORY 0: INCOMPLETE EVALUATION: NEED ADDITIONAL IMAGING EVALUATION Suspicious 5 cm mass and 6.7 x 6.5 cm architectural distortion in the upper outer and lower outer left breast is incompletely characterized on this single left CC tomosynthesis view. The remainder of the imaging evaluation was terminated due to syncopal episode. Recommend additional bilateral diagnostic tomosynthesis mammograms, left breast and left axillary ultrasound for further evaluation, once the patient is stable. 04/27/2023. Patient sent to emergency room after syncopal episode during mammograms. 04/27/2023. Emergency room visit. Emergency room physician did discuss case with neurosurgery team at [facility] who stated there is no urgent need for transfer. Recommended outpatient follow-up with neurosurgery clinic next week. 04/27/2023. CT cervical spine. IMPRESSION: 1. There is a 2 cm lytic lesion within the left side of the C3 vertebral body which extends into the left C3 pedicle. This is highly suspicious for a metastatic focus. 2. Mild indentation at the inferior endplate of C3 consistent with an age- indeterminate pathologic compression fracture. 3. Partially visualized lower cervical and superior mediastinal lymphadenopathy. This is highly suspicious for a neoplastic process. 4. Mild interlobular septal thickening within the lung apices. This could represent mild congestive change. 04/27/2023. CT head. IMPRESSION: No acute intracranial abnormality. 04/27/2023. CT scan of the abdomen/pelvis. IMPRESSION: 1. Right hepatic lesions are concerning for metastatic disease in this patient with history of breast cancer. 2. Retroperitoneal lymph nodes are subcentimeter, nonspecific but likely benign. Prominent nas hepatis lymph nodes are noted. 3. Cholelithiasis without cholecystitis. 04/27/2023. MRI brain. IMPRESSION: 1. Asymmetric T1 hypointense signal within the left frontal bone with minimal underlying dural enhancement. This is consistent with an osseous metastatic lesion. The underlying dural enhancement may be reactive. Early metastatic change would be difficult to exclude. Follow-up recommended to ensure stability. 2. Otherwise, no intracranial lesions identified. 3. The C3 metastatic focus is better appreciated on the same day cervical spine MRI. 4. There is an additional metastatic focus within the left occipital bone near the skull base. 04/27/2023. MRI cervical spine. IMPRESSION: 1. There is evidence of bony metastatic disease involving body of C3 as seen by CT. There is also involvement of the spinous process at this level. 2. There may also be lesions within the left transverse process of T1 as well as the left occiput. 3. The cervical cord is normal in morphology and signal intensity with no abnormal postcontrast enhancement. 4. Pathological lymphadenopathy in the neck as above. This is also typical for metastatic disease. 5. Spondylotic changes as above, greatest at C4-C5. 04/27/2023. CT chest. IMPRESSION: 1. A large and heterogeneously enhancing mass lesion is partially visualized in the left breast. There may be multifocal lesions in the left breast. 2. There are pathologically enlarged left axillary, bilateral supraclavicular, mediastinal, and hilar lymphadenopathy. This is typical for metastatic disease. 3. Foci of intralobular septal thickening and nodularity are seen throughout both lungs as above. Lymphangitic spread of tumor is the diagnosis of exclusion. 4. There is airspace consolidation at the medial left lung base. Correlate clinically for evidence of pneumonia. 5. No destructive bony lesions are identified in the thorax. 6. Additional findings as above. 04/28/2023. Planned IR guided biopsy of liver. 04/28/2023. Radiation oncology consultation. Recommendation is for consideration of palliative radiation therapy to the cervical spine. Neurosurgery consultation is pending [facility] will wait until that is completed as well as obtaining tissue diagnosis. Allergies Allergy/AdvReac Type Severity Reaction Status Date / Time No Known Drug Allergies Allergy none Verified 04/27/23 11:35 Home Medications Medication Instructions Recorded Confirmed Type breast pump #1 ea 05/08/22 04/22/23 Rx prenat.vits,petrona,hev-pjwm-xptxe 1 tab PO QAM 07/04/22 04/27/23 History acetaminophen 500 mg tablet 500 mg PO Q6H PRN Pain/Fever 04/27/23 04/27/23 History Patient History Medical History (Updated 04/28/23 @ 06:10 by Raudel Sanchez MD) Infertility with first /medications only. History of COVID-24 November 2021 -> mild symptoms. Obese Missed hx History of cervical dysplasia Surgical History (Updated 08/27/22 @ 14:50 by Francia Couch MD, FACOG) History of dilatation and curettage S/p bilateral myringotomy with tube placement S/P tympanoplasty right? Previous delivery affecting , antepartum History of low transverse section x 2 with tubal ligation S/P wisdom tooth extraction S/P LEEP of cervix Family History Grandmother (Maternal) Breast cancer Aunt Breast cancer Grandfather Heart murmur Other Twins, both liveborn Social History Smoking Status: Never smoker Second Hand Exposure: No; Do You Dip or Chew Tobacco: No; Hx Alcohol Use: No Hx Substance Use: No Preferred Language: Italian Communication Ability: Effective Visual Impairment: No Limitations Form Raiser Required: No Beliefs That Will Affect Care: None marital status: marital status details: Austin Almendarez (36) [phone] Current Living Situation: Family Current Living Situation Comment: Pt lives with her Austin and dalorenather Minesh 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 Metastatic breast cancer. Tissue diagnosis pending. Treatment: None so far. Review of Systems Review of Systems: Neck pain. No neurologic symptoms. Physical Exam Constitutional: WD/WN, vitals as above Neck: trachea midline, no thyromegaly Cervical neck collar in place. Skin: no rashes, warm and dry Neurologic: patellar DTR's 2+ bilat, sensation intact and PERRL, EOMI, accommodation nl, no face palsy, no dysarthria Psychiatric: A+Ox3, euthymic affect Time Spent Attending I spent 20 minutes in preparation for this consultation including reviewing all the clinical records, reviewing laboratory studies, pathology reports and imaging results. I spent 30 minutes with direct face to face interaction with the patient and/or family including performing a physical exam and answering all questions. I spent 20 minutes documenting this patient's visit. I spent 10 minutes speaking with the following providers regarding this patient's care: Dr. Costa, on-call [facility] neurosurgeon. PG Care Time/CCT Total # of Minutes Spent Total Time Spent with Patient: Total time spent is greater than 50% in coordination of care (as documented) at patient's floor/unit and/or counseling patient: Coding Level of Care Code 39548 IN/OBS CONSULT LVL 4,60M Diagnoses Malignant neoplasm metastatic to bone marrow C79.52 Area of secondary neoplastic involvement: bone marrow
[2023-04-28] MEDS ORDERED: LORazepam 0.5 MG TAB PO STA (10:30)
[2023-04-28] MEDS ORDERED: IBUPROFEN 600 MG TAB PO SCH (10:30)
[2023-04-28] MEDS ORDERED: cefTRIAXone SODIUM 2,000 MG in DEXTROSE 5 % MINI-B 50 ML IV SCH (12:00)
[2023-04-28] MEDS ORDERED: AZITHROMYCIN 500 MG in DEXTROSE 5% 250 ML IV SCH (12:30)
--- NOTE | 2023-04-28 15:20 | Ultrasound Report ---
Ultrasound-guided left axillary lymph node FNA/core biopsy INDICATION: Abnormal lymphadenopathy; new breast mass PROCEDURE: Procedure and risks explained. Informed consent was obtained. A final timeout was complete d. The left axilla was prepped and draped in sterile fashion. 1% buffered lidocaine was utilized for skin anesthesia. Utilizing ultrasound guidance, a 22-gauge spinal needle was advanced into the left axillary lymph nod e. Ultrasound images were obtained. 3 aspirates were obtained and given to the pathologist for review . Additional core tissue was requested by the pathologist and therefore an 18-gauge core biopsy needl e was advanced into the left axillary lymph node under ultrasound guidance. 3 core samples were attem pted, however only one good core specimen was given to the lab. The patient tolerated the procedure w ell. Vital signs will be monitored postprocedure. IMPRESSION: Ultrasound-guided left axillary lymph node FNA/core biopsy as above. Performed, dictated, and signed by Romel Cunningham PA-C; to be co-signed by Dr. Geo Ortega. Electronically signed by: Geo Ortega M.D. 04/28/2023 6:41 PM
--- NOTE | 2023-04-28 15:27 | Discharge Summary ---
Date of Service April 28, 2023 Admission HPI Per Admitting Provider Elvira Almendarez is a 32 year old female who presents to the ER after a syncopal event while having a mammogram. She reports dizziness prior to the fall. She notes multiple similar episodes ie. with the site of blood or when she is anxious causing her to loose consciousness. She was having neck pain after the fall therefore underwent CT cervical spine which was concerning for a metastatic lesion. ER discussed with neurosurgery at [place] and in the absence of neurological deficits recommended a cervical collar and follow up next week. She was referred to medicine due to syncope in setting of newly discovered suspected metastatic breast cancer. After giving in July she has had problems with a breast lump that was thought to be from blocked milk duct. 2 weeks ago she noticed this getting significant worse with swollen lymph nodes in her neck. She was seen by her engineering group manager on April 22 and referred for the mammogram she had today. She reports a significant history of second degree relatives with breast cancer but none at such a young age. No fever, chills, respiratory symptoms. No pain, weakness or change in sensation in all 4 extremities. Admission Exam Per Admitting Provider Constitutional: WD/WN, vitals as above Eyes: PERRL, conjunctivae normal, anicteric sclerae ENMT: external ear and nose normal, oropharynx normal Neck: Pt in [place] J collar Respiratory: normal respiratory effort, lungs clear to auscultation Cardiovascular: RRR, no murmur, no edema Gastrointestinal (Abdomen): normal bowel sounds, soft, nontender, no hepatosplenomegaly Musculoskeletal: no cyanosis or clubbing, extremities motor strength 5/5 Skin: no rashes, warm and dry Neurologic: moves all extremities and awake; no focal motor deficits and not confused Speech / Cognition: normal speech Motor/Sensory: no sensory deficit Psychiatric: Orientation: alert and oriented x 3 Lymphatic: + cervical lymphadenopathy (left sided) and + axillary lymphadenopathy (left sided) Principal Diagnosis Metastatic disease Breast Cancer Discharge Exam Constitutional WD/WN, vitals as above Neck on [place] j collar Respiratory normal respiratory effort, lungs clear to auscultation Cardiovascular RRR, no murmur, no edema Gastrointestinal (Abdomen) normal bowel sounds, soft, nontender, no hepatosplenomegaly Musculoskeletal no cyanosis or clubbing, extremities motor strength 5/5 Neurologic patellar DTR's 2+ bilat, sensation intact Discharge Data Allergies Allergy/AdvReac Type Severity Reaction Status Date / Time No Known Drug Allergies Allergy none Verified 04/27/23 11:35 Consultations 04/27/23 12:11 ED Decision to Admit Stat 04/27/23 13:25 Consult Oncology Routine 04/27/23 16:14 Consult Radiation Oncology Routine Ordered Studies Cervical Spine CT 04/27/23 09:[address] DOSE: 1114.97 mGy.cm HISTORY: syncope; neck pain TECHNIQUE: Multiaxial CT images of the cervical spine were performed and reformatted in the sagittal and coronal plane without the use of contrast. A dose lowering technique was utilized adhering to the principles of ALARA. COMPARISON: None. FINDINGS: Left lower cervical and superior mediastinal lymphadenopathy is partially visualized. Dominant upper right paratracheal lymph node measures 13 mm in short axis diameter. Dominant right lower cervical lymph node measures 18 x 14 mm. Mild interlobular septal thickening within the lung apices. No pneumothorax. Straightening of the cervical spine. There is mild degenerative disc disease at C4-C5. There is a lytic lesion within the left side of the C3 vertebral body which extends into the left C3 pedicle. This measures approximately 2 cm. This is highly suspicious for metastatic focus. Mild indentation at the inferior endplate of C3 consistent with an age-indeterminate pathologic compression fracture. IMPRESSION: 1. There is a 2 cm lytic lesion within the left side of the C3 vertebral body which extends into the left C3 pedicle. This is highly suspicious for a metastatic focus. 2. Mild indentation at the inferior endplate of C3 consistent with an age- indeterminate pathologic compression fracture. 3. Partially visualized lower cervical and superior mediastinal lymphadenopathy. This is highly suspicious for a neoplastic process. 4. Mild interlobular septal thickening within the lung apices. This could represent mild congestive change. ACT 112: Negative or not required by law. Electronically signed by: Lucio Calabrese M.D. 04/27/2023 9:[address] 04/27/23 09:10 CT SCAN OF THE BRAIN WITHOUT IV CONTRAST CLINICAL HISTORY: Syncope. COMPARISON STUDY: No priors. TECHNIQUE: Unenhanced axial CT scan of the brain is performed from the vertex to the skull base. A dose lowering technique was utilized adhering to the principles of ALARA. FINDINGS: Brain parenchyma: The brain parenchyma is normal in appearance. There is no hemorrhage, mass effect, or evidence of acute territorial ischemia by CT criteria. Najera-white matter differentiation is preserved. No extra-axial fluid collection is seen. Ventricles, sulci, cisterns: Normal in configuration. Intracranial vasculature: The visualized intracranial vasculature at the skull base is normal in appearance. Calvarium: There is no depressed calvarial fracture. No lytic or blastic lesion is seen. Soft tissues: There is a right parietal scalp contusion. Sinuses and mastoids: The visualized paranasal sinuses are clear. The mastoid air cells are well pneumatized. Orbits: The bony orbits are grossly intact. IMPRESSION: No acute intracranial abnormality. ACT 112: Negative or not required by law. Electronically signed by: Ta Laura M.D. 04/27/2023 9:56 AM Abdomen/Pelvis CT 04/27/23 11:55 CT abd pelvis IV con only CLINICAL HISTORY: suspected metastatic breat cancer TECHNIQUE: Helical axial images of the abdomen and pelvis were obtained and displayed. Automated dose lowering techniques and/or adjustment according to patient size were utilized for this exam. This exam was performed with intravenous contrast. COMPARISON: Comparison is made to pelvic ultrasound 06/06/2019 FINDINGS: Lower chest: For findings above the diaphragm, please see CT chest performed same day. Liver: Multiple hypodensities are seen in the right lobe of liver measuring up to 43 mm in diameter, concerning for malignancy. Gallbladder and biliary tree: Cholelithiasis is seen without evidence of cholecystitis. No intra- or extrahepatic biliary ductal dilation. Pancreas: Unremarkable, no focal lesions. Spleen: Unremarkable. Adrenals: Unremarkable. Kidneys and ureters: Unremarkable. Bladder: Unremarkable. Reproductive organs: Unremarkable. Bowel: Unremarkable. Lymph nodes Retroperitoneal: Subcentimeter lymph nodes are noted. Pelvic: Unremarkable. Mesenteric: Unremarkable. Peritoneum: There is a 9 x 7 mm nodule in the splenic hilum which likely represents a splenule. Attention on follow-up is recommended to exclude peritoneal deposit. Vessels: Unremarkable. Abdominal wall: Unremarkable. Bones: Unremarkable. IMPRESSION: 1. Right hepatic lesions are concerning for metastatic disease in this patient with history of breast cancer. 2. Retroperitoneal lymph nodes are subcentimeter, nonspecific but likely benign. Prominent nas hepatis lymph nodes are noted. 3. Cholelithiasis without cholecystitis. ACT 112: Negative or not required by law. Electronically signed by: Geo Ortega M.D. 04/27/2023 3:01 PM Brain MRI 04/27/23 11:56 Brain MRI WITH AND WITHOUT CONTRAST HISTORY: Syncope, metastatic disease TECHNIQUE: Multiplanar multisequence MRI of the brain was performed both before and after the intravenous administration of contrast. COMPARISON STUDY: Head CT 04/27/2023. FINDINGS: There are no areas of restricted diffusion to suggest acute infarction. The midline structures are intact. The paranasal sinuses are clear. The mastoid air cells are clear. The ventricles and sulci are within normal limits for age. There is no mass, hematoma, midline shift. The major vascular flow-voids at the skull base are well maintained. No intracranial lesions identified. However, there is decreased T1 signal within the left frontal bone with minimal underlying dural enhancement best seen on axial images 14 and 15. Therefore, this is suspicious for an osseous metastatic lesion. The C3 metastatic focus is better present on the same day cervical spine MRI. There is an additional osseous metastatic focus within the left occipital bone near the skull base. IMPRESSION: 1. Asymmetric T1 hypointense signal within the left frontal bone with minimal underlying dural enhancement. This is consistent with an osseous metastatic lesion. The underlying dural enhancement may be reactive. Early metastatic change would be difficult to exclude. Follow-up recommended to ensure stability. 2. Otherwise, no intracranial lesions identified. 3. The C3 metastatic focus is better appreciated on the same day cervical spine MRI. 4. There is an additional metastatic focus within the left occipital bone near the skull base. ACT 112: Negative or not required by law. Electronically signed by: Lucio Calabrese M.D. 04/27/2023 3:13 PM Cervical Spine MRI 04/27/23 12:03 MRI OF THE CERVICAL SPINE COMBO CLINICAL HISTORY: Osteolytic bone disease. COMPARISON STUDY: CT of the cervical spine dated 04/27/2023. TECHNIQUE: MRI of the cervical spine was performed utilizing various T1 and T2- weihgted sequences in the axial and sagittal planes. Contrast enhanced sequences are acquired following the IV administration of 9 cc of Gadavist. FINDINGS: Cervical spine: Vertebral body height and alignment are maintained throughout the cervical spine. There is straightening of the cervical lordosis. Small anterior osteophytes are noted. The atlantodens articulation is maintained. The spinous processes appear intact. Again seen is a destructive bone lesion within the body of C3. This is T1 hypointense, T2 hyperintense, and shows postcontrast enhancement. This also involves the spinous process of C3 as seen on sagittal image #8. No additional destructive bony lesion is clearly identified involving the cervical spine. There may also be a lesion within the left transverse process of T1 seen on axial image #140. The lesion is suggested in the left occiput on sagittal image #13. Chronic degenerative endplate change and endplate edema is noted at C4-C5. Intervertebral discs: Disc desiccation is seen throughout the cervical spine. There is mild loss of height at C4-C5. Spinal cord: The cervical cord is normal in morphology and signal intensity. No abnormal postcontrast enhancement is identified. C2-C3: Unremarkable. C3-C4: Uncovertebral and facet arthropathy contribute to mild bilateral neural foraminal stenosis. The central canal is clear. C4-C5: A posterior disc osteophyte complex minimally effaces the ventral cord. Uncovertebral and facet arthropathy contribute to moderate to severe bilateral neural foraminal stenosis, left greater than right. C5-C6: Mild facet arthropathy is of no consequence. The central canal and neural foramina are patent. C6-C7: Unremarkable. C7-T1: Unremarkable. Soft tissues: The prevertebral and paraspinous soft tissues are normal in appearance. Pathological cervical lymphadenopathy is seen bilaterally. A right kirby praclavicular node on image #136 measures 1.9 x 1.7 cm. A left cervical chain node on image #99 measures 1.4 x 1.2 cm. Brain parenchyma: The visualized brain parenchyma at the skull base is within n ormal limits. IMPRESSION: 1. There is evidence of bony metastatic disease involving body of C3 as seen by CT. There is also involvement of the spinous process at this level. 2. There may also be lesions within the left transverse process of T1 as well as the left occiput. 3. The cervical cord is normal in morphology and signal intensity with no abnormal postcontrast enhancement. 4. Pathological lymphadenopathy in the neck as above. This is also typical for metastatic disease. 5. Spondylotic changes as above, greatest at C4-C5. Dictated: 04/27/2023 2:25 PM Transcribed: 04/27/2023 2:54 PM Chas [id number] Kaitlyn [id number] Electronically signed by: Ta Laura M.D. 04/27/2023 5:[address] 04/27/23 12:03 CT SCAN OF THE CHEST WITH IV CONTRAST CLINICAL HISTORY: Breast mass. Metastatic bone lesions. COMPARISON STUDY: No priors. TECHNIQUE: Following the IV administration of 24 cc of Optiray 320, CT scan of the thorax was performed from the thoracic inlet to the upper abdomen. Images are reviewed in the axial, sagittal, and coronal planes. IV contrast was administered without complication. A dose lowering technique was utilized adhering to the principles of ALARA. CT DOSE: 1947.25 mGy.cm FINDINGS: Thyroid: Imaged portions of the thyroid gland are normal in size and attenuation. Thoracic aorta: The thoracic aorta is normal in caliber and demonstrates standard 3-vessel arch anatomy. No dissection is seen. Pulmonary vasculature: The pulmonary trunk is normal in caliber. There are no filling defects identified in the central pulmonary vessels to indicate pulmonary embolus. Note that this examination was not protocoled for evaluation of the pulmonary arteries. Heart: The heart is normal in size and without pericardial effusion. Lungs and pleural spaces: There is airspace consolidation at the medial left lung base. Foci of intralobular septal thickening and nodularity are seen throughout both lungs, greatest at the right apex and in both lower lobes. No pleural effusion is identified. Lower neck: A pathologically enlarged right supraclavicular lymph node on image #12 measures 2.2 x 1.6 cm. A pathologically enlarged left cervical ventricular node on image #13 measures 2.2 x 1.2 cm. Mediastinum: There are numerous mildly enlarged mediastinal lymph nodes. A right paratracheal node on image #42 measures 1.5 x 1.2 cm. Marta: There is bilateral hilar adenopathy. A right hilar node on image #76 measures 2.4 x 1.4 cm. Axillae: There are pathologically enlarged left axillary lymph nodes. The largest is seen on image #31 and measures 1.8 x 1.4 cm. No right axillary adenopathy is identified. Upper abdomen: Partially visualized upper abdominal viscera is within normal coe its. Skeletal structures: No lytic or blastic bony lesions are seen in the thorax. Soft tissues: A large heterogeneously enhancing mass is partially imaged in the left breast. This measures at least 5.3 cm as seen on image #71. IMPRESSION: 1. A large and heterogeneously enhancing mass lesion is partially visualized in the left breast. There may be multifocal lesions in the left breast. 2. There are pathologically enlarged left axillary, bilateral supraclavicular, mediastinal, and hilar lymphadenopathy. This is typical for metastatic disease. 3. Foci of intralobular septal thickening and nodularity are seen throughout both lungs as above. Lymphangitic spread of tumor is the diagnosis of exclusion. 4. There is airspace consolidation at the medial left lung base. Correlate cli nically for evidence of pneumonia. 5. No destructive bony lesions are identified in the thorax. 6. Additional findings as above. ACT 112: Negative or not required by law. Electronically signed by: Ta Laura M.D. 04/27/2023 3:03 PM Aspiration 04/28/23 00:00 Ultrasound-guided left axillary lymph node FNA/core biopsy INDICATION: Abnormal lymphadenopathy; new breast mass PROCEDURE: Procedure and risks explained. Informed consent was obtained. A final timeout was completed. The left axilla was prepped and draped in sterile fashion. 1% buffered lidocaine was utilized for skin anesthesia. Utilizing ultrasound guidance, a 22-gauge spinal needle was advanced into the left axillary lymph node. Ultrasound images were obtained. 3 aspirates were o btained and given to the pathologist for review. Additional core tissue was requested by the pathologist and therefore an 18-gauge core biopsy needle was advanced into the left axillary lymph node under ultrasound guidance. 3 core samples were attempted, however only one good core specimen was given to the lab. The patient tolerated the procedure well. Vital signs will be monitored postprocedure. IMPRESSION: Ultrasound-guided left axillary lymph node FNA/core biopsy as above. Performed, dictated, and signed by Romel Cunningham PA-C; to be co-signed by Dr. Geo Ortega. Lymph Node Biopsy Ultrasound 04/28/23 13:00 Ultrasound-guided left axillary lymph node FNA/core biopsy INDICATION: Abnormal lymphadenopathy; new breast mass PROCEDURE: Procedure and risks explained. Informed consent was obtained. A final timeout was completed. The left axilla was prepped and draped in sterile fashion. 1% buffered lidocaine was utilized for skin anesthesia. Utilizing ultrasound guidance, a 22-gauge spinal needle was advanced into the left axillary lymph node. Ultrasound images were obtained. 3 aspirates were obtained and given to the pathologist for review. Additional core tissue was requested by the pathologist and therefore an 18-gauge core biopsy needle was advanced into the left axillary lymph node under ultrasound guidance. 3 core samples were attempted, however only one good core specimen was given to the lab. The patient tolerated the procedure well. Vital signs will be monitored postprocedure. IMPRESSION: Ultrasound-guided left axillary lymph node FNA/core biopsy as above. Performed, dictated, and signed by Romel Cunningham PA-C; to be co-signed by Dr. Geo Ortega. Labs 04/27/23 04/27/23 04/28/23 09:30 12:06 04:50 WBC 8.43 8.42 RBC 4.51 4.80 Hgb 11.6 L 12.5 Hct 37.1 38.4 MCV 82.3 80.0 MCH 25.7 26.0 MCHC 31.3 L 32.6 RDW Std Deviation 40.7 40.3 RDW Coeff of Ara 13.9 13.9 Plt Count 242 286 MPV 10.2 9.7 Immature Gran % (Auto) 0.2 0.4 Neut % (Auto) 72.4 65.2 Lymph % (Auto) 19.5 27.2 Coffey % (Auto) 6.2 5.7 Eos % (Auto) 1.3 1.1 Baso % (Auto) 0.4 0.4 Neut # (Auto) 6.11 5.50 Lymph # (Auto) 1.64 2.29 Coffey # (Auto) 0.52 0.48 Eos # (Auto) 0.11 0.09 Baso # (Auto) 0.03 0.03 Immature Gran # (Auto) 0.02 0.03 PT 11.9 INR 1.1 D-Dimer 410 Sodium 140 142 Potassium 3.9 3.6 Chloride 108 H 109 H Carbon Dioxide 26 24 Anion Gap 6 9 BUN 11 10 Creatinine 0.76 0.75 Est Cr Clr Drug Dosing 114.0 115.5 Est GFR ( Amer) 118.6 120.5 Est GFR (Non-Af Amer) 102.3 104.0 BUN/Creatinine Ratio 14.5 13.3 Glucose 94 80 Calcium 9.1 9.0 Magnesium 1.9 Total Bilirubin 0.8 0.8 AST 21 13 ALT 10 8 Alkaline Phosphatase 117 H 119 H Troponin I High Sens < 2.3 Total Protein 6.9 7.0 Albumin 3.9 4.0 Globulin 3.0 3.0 Albumin/Globulin Ratio 1.3 1.3 Procalcitonin < 0.05 Urine Color Yellow Urine Appearance Clear Urine pH 7.0 Ur Specific [place] 1.009 Urine Protein Negative Urine Glucose (UA) Negative Urine Ketones Negative Urine Blood Negative Urine Nitrite Negative Urine Bilirubin Negative Urine Urobilinogen Negative Ur Leukocyte Esterase Negative 04/27/23 09:10 CT cervical spine wo con Stat CT head/brain wo con Stat 04/27/23 11:55 CT Abd and Pelvis [CT abd pelvis IV con only] Stat 04/27/23 11:56 MRI Brain [MR brain wo/w con] Routine 04/27/23 12:03 CT chest diagnostic w con Urgent MRI Cervical [MR cervical spine wo/w con] Urgent 04/28/23 IR FNA lymph node US Routine 04/28/23 11:39 CT guide rad therapy neck Routine 04/28/23 13:00 IR biopsy lymph US Routine Hospital Course (1) Metastatic disease: (2) Lesion of bone of cervical spine: (3) Syncope and collapse: (4) Acute neck pain: (5) Left breast mass: Plan 32 y/o female here due to recent diagnose of Metastatic breast cancer to liver/bone/ lung Metastatic disease Patient presented to the ER due to syncopal event during her mammogram. Patient refers having problems breast feeding and found a breast lump as well significant swollen lymph nodes in her neck. She was seen by her engineering group manager that sent her to have a mammogram. - Patient complain of neck pain, CT was done which show lesion concern of metastatic lesion. - Metastatic breast cancer to liver/ bone/ lung was found when full workup of was ordered (Ct abdomen/pelvis, Brain MRI, Chest CT, Cervical MRI) -Consult oncology - discussed with Dr Millan - Consult radiation oncology: -CT stimulation for treatment planning for radiation therapy was done -will await until neurosurgery recommendation for further treatment -Lymph node biopsy was performed today, results pending Lesion of bone of cervical spine: -Destructive bone lesion within the body of C3, metastatic disease - No radicular symptoms but concerning for high risk of compression with subsequent cord compression - [place] J collar -Neurology was consulted: -no emergent treatment, [place] J collar -outpatient neurosurgery assessment -Patient to call to set up appointment next week Syncope and collapse: Suspect most likely vasovagal. Pt noted dizziness prior to syncope. Notes extensive history of fainting easily. No sudden weakness in extremities. Total Time Total Time Spent Total Time Spent (In Minutes): <30 Discharge Plan Discharge Items Patient Disposition: Home - Self-Care Reason For Visit: SYNCOPE, CONCERN FROM METASTATIC CANCER Discharge Diagnosis: breast cancer - full biopsy results pending Activity: Resume your previous activity Non-emergency contact: Primary Care Provider and Oncologist Call non-emergency contact if: you have any medication questions and your symptoms worsen Follow-up/Referrals: Davin Crews [Primary Care Provider] - Diet: Regular Addtl Attending Provider Instructions: as we discussed, the pathology will likely take the better part of a week to come back. these will be the results that really guide treatment decisions while waiting to follow up with the neurosurgeon at [place], as we discussed, the cervical spine spot looks like overall things are stable, and i doubt that they'll need to do a surgical stabilization; however, C3 is a fairly risky area if things were to go wrong since the nerves to the diaphragm (breathing muscle) come out at C3-5. because of that, i would recommend keeping the cervical collar on as much as you can. most likely this will be a situation that dr abbott will do radiation treatment to stabilize - hence why he already has things simulated and ready to go. i'll be letting dr crews know what is going on so that he can get actively involved in your story. expect to be seeing him more or less monthly for the foreseeable future - a good family doc like dr crews will act as physiotherapy practice manager for everything that is going on, make sure that all the "moving parts" of the team taking care of you are acting in concert, keep an eye on symptoms that come up during a cancer journey and manage them (such as nausea, pain, depression, etc) and keep watching the big picture (so that no one is acting in the "tunnel vision" that sometimes can happen when people are being viewed through one lens) Pending Studies at Discharge: Yes (pathology report of biopsy done earlier today) Stand-Alone Forms: My [facility], Smoking Cessation Medications and DC Order Prescriptions: Continued (DME) breast pump Device See Rx Instructions .ROUTE .MEDSUPPLY Qty: 1 0RF Rx Instructions: Pt already has a breast pump prenat.vits,petrona,[id number] Tablet 1 tab PO QAM acetaminophen 500 mg Tablet 500 mg PO Q6H PRN (Reason: Pain/Fever) Discharge Orders: Discharge Order (Routine); Ordered 04/28/23 Ordered By: Noé Smith Admission Data Admit Date/Time: 04/27/23 12:01 Attending Provider: Noé Smith Admit Provider: Raudel Sanchez Primary Care Provider: Davin Crews Other Providers: Jose Millan; Geeta Abbott; Raudel Sanchez Other Interventions: Discharge Summary Assessment (RN) Last Done: 04/28/23 15:38 Supervising Physician Co-Signing Physician Notes I personally examined the patient and verified all tan points of history and exam, discussed case, and agree with decision making with Dr Simon Barcenas feels Ok. biopsy done. would like to go home. discussed next steps. Answered all questions the best my ability. Nurse navigator working on setting up neurosurgery, and ensuring that oncology follow-ups are scheduled. Vitals noted, in general she is awake and alert pleasant no distress. HEENT normocephalic atraumatic mucous membranes moist. Breathing unlabored no accessory muscle use good effort. Skin shows no rashes no pallor or icterus. Neuro without focal deficits. New diagnosis of what is almost certainly unfortunately metastatic breast cancerbiopsy pending, staging CTs done, likely will need outpatient PET, for now c-collar pending neurosurgery evaluation, but I suspect she will not require surgical stabilizationis set up for radiation oncology for x-ray treatment, we will follow-up with hematology/oncology once biopsy is back. Discussed the need for close follow-up with her PCP regularly as well to help manage the overall situation, as well as side issues that frequently, up when somebody is undergoing treatment. Safe/stable for home. Otherwise as above.
--- NOTE | 2023-04-28 18:35 | Billing Data ---
Date of Service April 28, 2023 Coding Level of Care Code 02031 IN/OBS DISCH 30 MIN/LESS
--- NOTE | 2023-04-28 21:42 | Consultation ---
Date of Consultation April 28, 2023 Assessment & Plan (1) Pneumonia: Pulmonary changes on CT but without dramatic symptoms in a non-smoker who is young and healthy otherwise. There is no description to suggest major aspiration at the time of her syncopal episode. Do have to be concerned that this could be very early lymphangitic or other pulmonary involvement and we will need to reassess in time (2) Syncope and collapse: By description she seems prone to vasovagal like episodes with rapid recovery and no signs of other major neurological compromise. Apparently did have a cardiology work-up that was unremarkable. Her mental status seems completely intact, she has no meningismus, there is no suggestion of carcinomatous meningitis. The dural enhancement seen on MRI is probably more likely reactive to the overlying skull metastasis but nevertheless we will need to continue to closely monitor (3) Left breast mass: Unfortunately highly suggestive situation for metastatic breast cancer with significant disease in the breast itself, widespread thoracic and abdominal pathologic adenopathy, early liver metastases and critical bone involvement in the cervical spine as well as some other scattered lesions. She is relatively asymptomatic but with multiorgan involvement I think she might be considered "visceral crisis" like presentation. Confirmatory biopsy is to be performed today - so long as she is wearing her cervical collar and is without other symptoms she can be discharged and I will plan to follow her up immediately after the holiday for further review. "Standard" options will be driven somewhat by the presence or absence of hormone receptors and/or HER2 expression and we will early on seek more comprehensive NGS evaluation. Given her very young age, she would be a very good candidate for investigational studies and I am hoping we can get her quickly to be seen by the [facility] breast cancer investigation team within a very short period of time after the holiday so that they can help us to participate in defining optimal upfront therapy. Family history is moderate and not strongly suggestive of a high penetrance cancer family syndrome but in conjunction with the NGS studies of the mass itself would anticipate formal genetics counseling and germline testing both to help define her prognosis and treatment options but also to make sure we are giving appropriate information to family members I have tried to offer a balanced discussion that there are certainly many interesting and sometimes significantly effective interventions to offer for metastatic cancer but we need to find out the exact details confirming that this is indeed a breast cancer and if so what its molecular characteristics are before we can have more specific discussions. While we have noted that there are some women who can achieve deep and durable responses even with metastatic disease we have cautioned that each patient's response and experience is unique to her and starting off with multiorgan involvement she has a somewhat more g uarded prognosis than some. Please see the initial disease summary generated within the [facility] [employer] database a copy which has been given to the patient and her for review specifically giving them some websites with which they can start to develop at least some familiarity with the concepts of treatment of metastatic breast cancer (4) History of cervical dysplasia: Status post LEEP there has been no sam progression of malignancy so far she is aware (5) Lesion of bone of cervical spine: Lytic lesion in C3. ED staff reviewed with Dr. Brad Huynh in [place] ([phone]) of neurosurgery who indicates she should wear a collar and he will see her as an outpatient next week. Do not anticipate that this will require fixation but seek his confirmation especially in the context of the MRI scan with extension into the pedicle. Disease does seem to be limited at least within the cervical spine to the C3 vertebral. Radiation oncology consultation has also been requested and she will undoubtedly benefit from stabilizing radiation to that lesion if no surgery is to be performed Plan Move quickly towards a tissue biopsy to be performed later today Cervical collar with specific follow-up to be as an outpatient with [place] neurosurgery next week. Have cautioned the patient and her that any changes in headache, vision, strength or sensation in the extremities, difficulties with bowel or bladder function, or any other clinical change should prompt an urgent return to the ED for review Anticipate we are dealing with a metastatic breast cancer and we will try to coordinate [facility] second opinion [place] as a prelude to making final recommendations specifically incorporating any potential investigational options as part of the overall consideration History of Present Illness Reason for Consultation: Breast mass with apparent metastases to nodes, liver, bone Attending Physician: Noé Smith DO History of Present Illness Delightful 32-year-old woman with no previous diagnosis of malignancy and generally quite healthy. She is status post and LEEP procedure for cervical dysplasia but no sam malignancy was apparently found She delivered her second child in July of this year and has had ongoing issues with swelling and discomfort in the left breast since that time. This has been attributed to a galactocele or other milk duct issue but when it became more pronounced and especially associated with pathologic adenopathy in the left and last axilla she was referred for more definitive imaging which shows a pathological mass in the left breast. Immediately upon completion of that imaging she had a syncopal episode and was transferred to the emergency department. Imaging there shows what looks like widespread metastases as detailed below. She is actually feeling relatively well and her only active complaint at this time is of discomfort of the cervical collar which was placed because of a lytic lesion in the C3 vertebra and some headache after hitting her head with her fall. She is not having any major systemic discomfort, overall has been feeling generally well leading up to this. She is not a smoker, drinks only occasionally, she has no history of major occupational exposures. She notes that she has had a number of episodes of syncope in the past and apparently a cardiology work-up was unremarkable simply indicating that she "faints a lot." The episode earlier today was not associated with an aura, any incontinence, postictal changes, more prolonged loss of consciousness or compromise. She does note both her maternal grandmother and her paternal aunt had breast cancer but these were both women in later age. There is otherwise no family history of breast cancer nor any family history of pancreas, ovarian, colon or other unusual patterns of cancer which she is aware. She has had some weight loss this year but felt that that was potentially physiologically consistent with her changes and also some volitional effort on her part Allergies Allergy/AdvReac Type Severity Reaction Status Date / Time No Known Drug Allergies Allergy none Verified 04/27/23 11:35 Home Medications Medication Instructions Recorded Confirmed Type breast pump #1 ea 05/08/22 04/22/23 Rx prenat.vits,petrona,wlj-agdd-xjegm 1 tab PO QAM 07/04/22 04/27/23 History acetaminophen 500 mg tablet 500 mg PO Q6H PRN Pain/Fever 04/27/23 04/27/23 History Patient History Medical History (Updated 04/28/23 @ 06:10 by Raudel Sanchez MD) Infertility with first /medications only. History of COVID-24 November 2021 -> mild symptoms. Obese Missed hx History of cervical dysplasia Surgical History (Updated 08/27/22 @ 14:50 by Francia Couch MD, FACOG) History of dilatation and curettage S/p bilateral myringotomy with tube placement S/P tympanoplasty right? Previous delivery affecting , antepartum History of low transverse section x 2 with tubal ligation S/P wisdom tooth extraction S/P LEEP of cervix Family History Grandmother (Maternal) Breast cancer Aunt Breast cancer Grandfather Heart murmur Other Twins, both liveborn Social History Smoking Status: Never smoker Second Hand Exposure: No; Do You Dip or Chew Tobacco: No; Hx Alcohol Use: No Hx Substance Use: No Preferred Language: Hebrew Communication Ability: Effective Visual Impairment: No Limitations Proposal Manager Writer Required: No Beliefs That Will Affect Care: None marital status: marital status details: Austin Almendarez (34) [phone] Current Living Situation: Family Current Living Situation Comment: Pt lives with her Austin and dolores [place] 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 She is wearing a cervical collar. There is no signs of major trauma to her head. She does have some palpable lymph nodes in the left neck and also left axilla Left breast shows an approximately 6 cm mass in the upper outer which seems to have a smooth edge and is mobile without any overlying skin changes. Lungs currently clear progress auscultation Cardiac rhythm is regular that pathological murmur The abdomen seems benign, the liver neither is enlarged nor markedly tender and there is no obvious irregularity of the surface Neurologic exam seems currently nonfocal Results & Data Vital Signs (Past 12 Hours) Vital Signs Temp Pulse Pulse Pulse Resp BP Pulse Ox 04/28/23 15:38 36.5 C 81 63 18 111/77 97 04/28/23 15:21 36.5 C 63 18 111/77 97 04/28/23 15:00 70 O2 Del Method 04/28/23 15:38 04/28/23 15:21 Room Air 04/28/23 15:00 Laboratory Results Laboratory Results - last 24 hr 04/28/23 04:50 WBC 8.42 RBC 4.80 Hgb 12.5 Hct 38.4 MCV 80.0 MCH 26.0 MCHC 32.6 RDW Std Deviation 40.3 RDW Coeff of Ara 13.9 Plt Count 286 MPV 9.7 Immature Gran % (Auto) 0.4 Neut % (Auto) 65.2 Lymph % (Auto) 27.2 [place] % (Auto) 5.7 Eos % (Auto) 1.1 Baso % (Auto) 0.4 Neut # (Auto) 5.50 Lymph # (Auto) 2.29 [place] # (Auto) 0.48 Eos # (Auto) 0.09 Baso # (Auto) 0.03 Immature Gran # (Auto) 0.03 PT 11.9 INR 1.1 Sodium 142 Potassium 3.6 Chloride 109 H Carbon Dioxide 24 Anion Gap 9 BUN 10 Creatinine 0.75 Est Cr Clr Drug Dosing 115.5 Est GFR ( Amer) 120.5 Est GFR (Non-Af Amer) 104.0 BUN/Creatinine Ratio 13.3 Glucose 80 Calcium 9.0 Total Bilirubin 0.8 AST 13 ALT 8 Alkaline Phosphatase 119 H Total Protein 7.0 Albumin 4.0 Globulin 3.0 Albumin/Globulin Ratio 1.3 Diagnostic Findings 04/27/2023 UNILATERAL LEFT DIGITAL DIAGNOSTIC MAMMOGRAM TOMOSYNTHESIS WITH SYNTHETIC 2D: 04/27/2023 CLINICAL HISTORY: 32-year-old lactating woman presented for diagnostic work-up of a palpable mass in the left breast upper outer quadrant. She reports a family history of breast cancer. After the first mammogram image was performed (left CC tomosynthesis view), the patient had a syncopal episode, at which time she hit her head and briefly lost consciousness. As a department, we called 911 and EMS arrived approximately 15 minutes later. The patient cervical spine was stabilized with a collar and she was transported to the [facility] emergency department for further evaluation of the syncopal episode and for head and neck trauma. The images were not sent to the viewing console or interpreted until after the patient had already left the department via ambulance. TECHNIQUE: Left CC tomosynthesis images including synthesized 2D images (Intelligent 2D) were obtained. COMPARISON: Comparison is made to exam dated: 04/08/2018 ultrasound - [facility]. BREAST COMPOSITION: The left breast is heterogeneously dense, which may obscure small masses. FINDINGS: Left CC tomosynthesis images were performed. A triangular skin marker was placed on the upper outer left breast indicating the area of lump palpated by the patient. There is asymmetry throughout the entire lateral left breast. Based on the tomosynthesis localizer bars, an irregular 5 cm mass is seen superiorly on slice 57/87 and then inferiorly there is a large area of architectural distortion measuring at least 6.7 x 6.5 cm at approximate 3:00 or lower outer left breast slice 41/87. The architectural distortion extends inferiorly into the lower outer quadrant and seen on tomosynthesis slice 18/87. It is unclear whether this could represent two separate findings or simply 1 contiguous process. Nevertheless, the remainder of the work-up is needed including additional tomosynthesis mammograms of both breasts and left breast and axillary ultrasound for further characterization. IMPRESSION: ACR BI-RADS CATEGORY 0: INCOMPLETE EVALUATION: NEED ADDITIONAL IMAGING EVALUATION Suspicious 5 cm mass and 6.7 x 6.5 cm architectural distortion in the upper outer and lower outer left breast is incompletely characterized on this single left CC tomosynthesis view. The remainder of the imaging evaluation was terminated due to syncopal episode. Recommend additional bilateral diagnostic tomosynthesis mammograms, left breast and left axillary ultrasound for further evaluation, once the patient is stable. The suspicious left breast findings were relayed to the emergency room physician caring for the patient, Dr. Linette Norwood, at approximately 10 AM on 04/27/2023. We will try to get the patient back to our department as soon as possible once stabilized and discharged from the ED/hospital. Cervical Spine CT 04/27/23 09:[address] DOSE: 1114.97 mGy.cm HISTORY: syncope; neck pain TECHNIQUE: Multiaxial CT images of the cervical spine were performed and reformatted in the sagittal and coronal plane without the use of contrast. A dose lowering technique was utilized adhering to the principles of ALARA. COMPARISON: None. FINDINGS: Left lower cervical and superior mediastinal lymphadenopathy is partially visualized. Dominant upper right paratracheal lymph node measures 13 mm in short axis diameter. Dominant right lower cervical lymph node measures 18 x 14 mm. Mild interlobular septal thickening within the lung apices. No pneumothorax. Straightening of the cervical spine. There is mild degenerative disc disease at C4-C5. There is a lytic lesion within the left side of the C3 vertebral body which extends into the left C3 pedicle. This measures approximately 2 cm. This is highly suspicious for metastatic focus. Mild indentation at the inferior endplate of C3 consistent with an age-indeterminate pathologic compression fracture. IMPRESSION: 1. There is a 2 cm lytic lesion within the left side of the C3 vertebral body which extends into the left C3 pedicle. This is highly suspicious for a metastatic focus. 2. Mild indentation at the inferior endplate of C3 consistent with an age-indeterminate pathologic compression fracture. 3. Partially visualized lower cervical and superior mediastinal lymphadenopathy. This is highly suspicious for a neoplastic process. 4. Mild interlobular septal thickening within the lung apices. This could represent mild congestive change. ACT 112: Negative or not required by law. Electronically signed by: Lucio Calabrese M.D. 04/27/2023 9:[address] 04/27/23 09:10 CT SCAN OF THE BRAIN WITHOUT IV CONTRAST CLINICAL HISTORY: Syncope. COMPARISON STUDY: No priors. TECHNIQUE: Unenhanced axial CT scan of the brain is performed from the vertex to the skull base. A dose lowering technique was utilized adhering to the principles of ALARA. FINDINGS: Brain parenchyma: The brain parenchyma is normal in appearance. There is no hemorrhage, mass effect, or evidence of acute territorial ischemia by CT criteria. Najera-white matter differentiation is preserved. No extra-axial fluid collection is seen. Ventricles, sulci, cisterns: Normal in configuration. Intracranial vasculature: The visualized intracranial vasculature at the skull base is normal in appearance. Calvarium: There is no depressed calvarial fracture. No lytic or blastic lesion is seen. Soft tissues: There is a right parietal scalp contusion. Sinuses and mastoids: The visualized paranasal sinuses are clear. The mastoid air cells are well pneumatized. Orbits: The bony orbits are grossly intact. IMPRESSION: No acute intracranial abnormality. ACT 112: Negative or not required by law. Electronically signed by: Ta Laura M.D. 04/27/2023 9:56 AM Abdomen/Pelvis CT 04/27/23 11:55 CT abd pelvis IV con only CLINICAL HISTORY: suspected metastatic breat cancer TECHNIQUE: Helical axial images of the abdomen and pelvis were obtained and displayed. Automated dose lowering techniques and/or adjustment according to patient size were utilized for this exam. This exam was performed with intravenous contrast. COMPARISON: Comparison is made to pelvic ultrasound 06/06/2019 FINDINGS: Lower chest: For findings above the diaphragm, please see CT chest performed same day. Liver: Multiple hypodensities are seen in the right lobe of liver measuring up to 43 mm in diameter, concerning for malignancy. Gallbladder and biliary tree: Cholelithiasis is seen without evidence of cholecystitis. No intra- or extrahepatic biliary ductal dilation. Pancreas: Unremarkable, no focal lesions. Spleen: Unremarkable. Adrenals: Unremarkable. Kidneys and ureters: Unremarkable. Bladder: Unremarkable. Reproductive organs: Unremarkable. Bowel: Unremarkable. Lymph nodes Retroperitoneal: Subcentimeter lymph nodes are noted. Pelvic: Unremarkable. Mesenteric: Unremarkable. Peritoneum: There is a 9 x 7 mm nodule in the splenic hilum which likely represents a splenule. Attention on follow-up is recommended to exclude peritoneal deposit. Vessels: Unremarkable. Abdominal wall: Unremarkable. Bones: Unremarkable. IMPRESSION: 1. Right hepatic lesions are concerning for metastatic disease in this patient with history of breast cancer. 2. Retroperitoneal lymph nodes are subcentimeter, nonspecific but likely benign. Prominent nas hepatis lymph nodes are noted. 3. Cholelithiasis without cholecystitis. ACT 112: Negative or not required by law. Electronically signed by: Geo Ortega M.D. 04/27/2023 3:01 PM Brain MRI 04/27/23 11:56 Brain MRI WITH AND WITHOUT CONTRAST HISTORY: Syncope, metastatic disease TECHNIQUE: Multiplanar multisequence MRI of the brain was performed both before and after the intravenous administration of contrast. COMPARISON STUDY: Head CT 04/27/2023. FINDINGS: There are no areas of restricted diffusion to suggest acute infarction. The midline structures are intact. The paranasal sinuses are clear. The mastoid air cells are clear. The ventricles and sulci are within normal limits for age. There is no mass, hematoma, midline shift. The major vascular flow-voids at the skull base are well maintained. No intracranial lesions identified. However, there is decreased T1 signal within the left frontal bone with minimal underlying dural enhancement best seen on axial images 14 and 15. Therefore, this is suspicious for an osseous metastatic lesion. The C3 metastatic focus is better present on the same day cervical spine MRI. There is an additional osseous metastatic focus within the left occipital bone near the skull base. IMPRESSION: 1. Asymmetric T1 hypointense signal within the left frontal bone with minimal underlying dural enhancement. This is consistent with an osseous metastatic lesion. The underlying dural enhancement may be reactive. Early metastatic change would be difficult to exclude. Follow-up recommended to ensure stability. 2. Otherwise, no intracranial lesions identified. 3. The C3 metastatic focus is better appreciated on the same day cervical spine MRI. 4. There is an additional metastatic focus within the left occipital bone near the skull base. ACT 112: Negative or not required by law. Electronically signed by: Lucio Calabrese M.D. 04/27/2023 3:13 PM Cervical Spine MRI 04/27/23 12:03 MRI OF THE CERVICAL SPINE COMBO CLINICAL HISTORY: Osteolytic bone disease. COMPARISON STUDY: CT of the cervical spine dated 04/27/2023. TECHNIQUE: MRI of the cervical spine was performed utilizing various T1 and T2- weihgted sequences in the axial and sagittal planes. Contrast enhanced sequences are acquired following the IV administration of 9 cc of Gadavist. FINDINGS: Cervical spine: Vertebral body height and alignment are maintained throughout the cervical spine. There is straightening of the cervical lordosis. Small anterior osteophytes are noted. The atlantodens articulation is maintained. The spinous processes appear intact. Again seen is a destructive bone lesion within the body of C3. This is T1 hypointense, T2 hyperintense, and shows postcontrast enhancement. This also involves the spinous process of C3 as seen on sagittal image #8. No additional destructive bony lesion is clearly identified involving the cervical spine. There may also be a lesion within the left transverse process of T1 seen on axial image #140. The lesion is suggested in the left occiput on sagittal image #13. Chronic degenerative endplate change and endplate edema is noted at C4-C5. Intervertebral discs: Disc desiccation is seen throughout the cervical spine. There is mild loss of height at C4-C5. Spinal cord: The cervical cord is normal in morphology and signal intensity. No abnormal postcontrast enhancement is identified. C2-C3: Unremarkable. C3-C4: Uncovertebral and facet arthropathy contribute to mild bilateral neural foraminal stenosis. The central canal is clear. C4-C5: A posterior disc osteophyte complex minimally effaces the ventral cord. Uncovertebral and facet arthropathy contribute to moderate to severe bilateral neural foraminal stenosis, left greater than right. C5-C6: Mild facet arthropathy is of no consequence. The central canal and neural foramina are patent. C6-C7: Unremarkable. C7-T1: Unremarkable. Soft tissues: The prevertebral and paraspinous soft tissues are normal in appearance. Pathological cervical lymphadenopathy is seen bilaterally. A right s upraclavicular node on image #136 measures 1.9 x 1.7 cm. A left cervical chain node on image #99 measures 1.4 x 1.2 cm. Brain parenchyma: The visualized brain parenchyma at the skull base is within normal limits. IMPRESSION: 1. There is evidence of bony metastatic disease involving body of C3 as seen by CT. There is also involvement of the spinous process at this level. 2. There may also be lesions within the left transverse process of T1 as well as the left occiput. 3. The cervical cord is normal in morphology and signal intensity with no abnormal postcontrast enhancement. 4. Pathological lymphadenopathy in the neck as above. This is also typical for metastatic disease. 5. Spondylotic changes as above, greatest at C4-C5. Dictated: 04/27/2023 2:25 PM Transcribed: 04/27/2023 2:54 PM Chas [id number] Electronically signed by: Ta Laura M.D. 04/27/2023 5:[address] 04/27/23 12:03 CT SCAN OF THE CHEST WITH IV CONTRAST CLINICAL HISTORY: Breast mass. Metastatic bone lesions. COMPARISON STUDY: No priors. TECHNIQUE: Following the IV administration of 24 cc of Optiray 320, CT scan of the thorax was performed from the thoracic inlet to the upper abdomen. Images are reviewed in the axial, sagittal, and coronal planes. IV contrast was administered without complication. A dose lowering technique was utilized adhering to the principles of ALARA. CT DOSE: 1947.25 mGy.cm FINDINGS: Thyroid: Imaged portions of the thyroid gland are normal in size and attenuation. Thoracic aorta: The thoracic aorta is normal in caliber and demonstrates standard 3-vessel arch anatomy. No dissection is seen. Pulmonary vasculature: The pulmonary trunk is normal in caliber. There are no filling defects identified in the central pulmonary vessels to indicate pulmonary embolus. Note that this examination was not protocoled for evaluation of the pulmonary arteries. Heart: The heart is normal in size and without pericardial effusion. Lungs and pleural spaces: There is airspace consolidation at the medial left lung base. Foci of intralobular septal thickening and nodularity are seen throug hout both lungs, greatest at the right apex and in both lower lobes. No pleural effusion is identified. Lower neck: A pathologically enlarged right supraclavicular lymph node on image #12 measures 2.2 x 1.6 cm. A pathologically enlarged left cervical ventricular node on image #13 measures 2.2 x 1.2 cm. Mediastinum: There are numerous mildly enlarged mediastinal lymph nodes. A right paratracheal node on image #42 measures 1.5 x 1.2 cm. Marta: There is bilateral hilar adenopathy. A right hilar node on image #76 measures 2.4 x 1.4 cm. Axillae: There are pathologically enlarged left axillary lymph nodes. The largest is seen on image #31 and measures 1.8 x 1.4 cm. No right axillary adenopathy is identified. Upper abdomen: Partially visualized upper abdominal viscera is within normal li mits. Skeletal structures: No lytic or blastic bony lesions are seen in the thorax. Soft tissues: A large heterogeneously enhancing mass is partially imaged in the left breast. This measures at least 5.3 cm as seen on image #71. IMPRESSION: 1. A large and heterogeneously enhancing mass lesion is partially visualized in the left breast. There may be multifocal lesions in the left breast. 2. There are pathologically enlarged left axillary, bilateral supraclavicular, mediastinal, and hilar lymphadenopathy. This is typical for metastatic disease. 3. Foci of intralobular septal thickening and nodularity are seen throughout both lungs as above. Lymphangitic spread of tumor is the diagnosis of exclusion. 4. There is airspace consolidation at the medial left lung base. Correlate cl inically for evidence of pneumonia. 5. No destructive bony lesions are identified in the thorax. 6. Additional findings as above. ACT 112: Negative or not required by law. Electronically signed by: Ta Laura M.D. 04/27/2023 3:03 PM Aspiration 04/28/23 00:00 Ultrasound-guided left axillary lymph node FNA/core biopsy INDICATION: Abnormal lymphadenopathy; new breast mass PROCEDURE: Procedure and risks explained. Informed consent was obtained. A final timeout was completed. The left axilla was prepped and draped in sterile fashion. 1% buffered lidocaine was utilized for skin anesthesia. Utilizing ultrasound guidance, a 22-gauge spinal needle was advanced into the left axillary lymph node. Ultrasound images were obtained. 3 aspirates were obtained and given to the pathologist for review. Additional core tissue was requested by the pathologist and therefore an 18-gauge core biopsy needle was advanced into the left axillary lymph node under ultrasound guidance. 3 core samples were attempted, however only one good core specimen was given to the lab. The patient tolerated the procedure well. Vital signs will be monitored postprocedure. IMPRESSION: Ultrasound-guided left axillary lymph node FNA/core biopsy as above. Performed, dictated, and signed by Romel Cunningham PA-C; to be co-signed by Dr. Geo Otrega. Electronically signed by: Geo Ortega M.D. 04/28/2023 6:41 PM Lymph Node Biopsy Ultrasound 04/28/23 13:00 Ultrasound-guided left axillary lymph node FNA/core biopsy INDICATION: Abnormal lymphadenopathy; new breast mass PROCEDURE: Procedure and risks explained. Informed consent was obtained. A final timeout was completed. The left axilla was prepped and draped in sterile fashion. 1% buffered lidocaine was utilized for skin anesthesia. Utilizing ultrasound guidance, a 22-gauge spinal needle was advanced into the left axillary lymph node. Ultrasound images were obtained. 3 aspirates were obtained and given to the pathologist for review. Additional core tissue was requested by the pathologist and therefore an 18-gauge core biopsy needle was advanced into the left axillary lymph node under ultrasound guidance. 3 core samples were attempted, however only one good core specimen was given to the lab. The patient tolerated the procedure well. Vital signs will be monitored p ostprocedure. IMPRESSION: Ultrasound-guided left axillary lymph node FNA/core biopsy as above. Performed, dictated, and signed by Romel Cunningham PA-C; to be co-signed by Dr. Geo Ortega. Electronically signed by: Geo Ortega M.D. 04/28/2023 6:41 PM PG Care Time/CCT Total # of Minutes Spent Total Time Spent with Patient: Total time spent is greater than 50% in coordination of care (as documented) at patient's floor/unit and/or counseling patient: Coding Level of Care Code 65113 IN/OBS CONSULT LVL 4,60M History Expanded Problem Focused Exam Expanded Problem Focused Diagnoses Pneumonia of left lower lobe due to infectious organism J18.9 Pneumonia type: due to unspecified organism Laterality: left Lung location: lower lobe of lung Syncope and collapse R55 Left breast mass N63.20 History of cervical dysplasia Z87.410 Lesion of bone of cervical spine M89.9 (1) Pneumonia Pneumonia type: due to unspecified organism Laterality: left Lung location: lower lobe of lung Qualified Code(s): J18.9 - Pneumonia, unspecified organism
--- NOTE | 2023-05-01 14:20 | Coding Query ---
PATHOLOGY To promote full compliance with coding requirements relating to patient care, physician participation is requested in all cases of assembler gold frame uncertainty. Please assist us with the question(s) below: Please review the Pathology report and please document any relevant diagnosis(es) below: Diagnosis(es): metastatic carcinoma consistent with a breast primary Thank you Brenda COX
--- NOTE | 2023-05-01 14:22 | Coding Query ---
To promote full compliance with coding requirements relating to patient care, provider participation is requested in all cases of staff pharmacist hospital uncertainty. Please assist us with the question(s) below: Coding Question(s): The diagnosis(es) below was documented in the H&P, and the [address] Millan, then subsequently fell off all further documentation on the Discharge Summary. Please indicate if it is still a possible diagnosis or ruled out. Physician's Response(s): PNEUMONIA ( ) Diagnosed and POA ( ) Diagnosed and not POA (x ) Ruled out ( ) Other (please specify) MTDD
== END 2023-04-28 16:16 | disposition home or self-care (01) | DRG 580 ==
LOC: ED 08:54 → INTOOBSV 12:01 → EDINP 12:01 → SUATTDRO 12:01 → 2W 14:31

== ENCOUNTER 2023-07-12 13:20 | Inpatient (IN) ==
--- NOTE | 2023-07-12 13:39 | Emergency Department Note ---
Impression & Plan Choledocholithiasis, Metastatic disease, Acute cholecystitis, Abdominal pain, RUQ, Nausea & vomiting ED Provider Note NAME: LUIS MANUEL LI AGE: 32 SEX: F : 1990 ARRIVES VIA: Walk-In INFORMANT: Patient, ED PROVIDER(S): Ector Hernandez MD CHIEF COMPLAINT: Abdominal pain MEDICAL DECISION MAKING: Patient presented due to concern for upper abdominal pain in setting of known history of metastatic cancer. IV was established and blood work is obtained. Patient has leukopenia and anemia with a normal platelet count normal kidney function. The patient does have elevation in LFTs with a bili of 2.4 AST and ALT of 97 157 alk phos [address] abdomen pelvis does show concern for choledocholithiasis and biliary dilation. Also associated acute cholecystitis. I did speak with on-call senior software quality engineer Dr. Frausto who stated that there may be some of the can perform an ERCP. I did have case management look at the call schedule which did show that Dr. Mcnamara is on-call the next 2 days. I did speak the on-call medicine service Dr. Rehman and the patient was admitted to the medicine service. I did convey the findings to the patient. Discussion w/ other healthcare providers: Dr. Frausto gastroenterology Dr. Rehman inpatient medicine Prior /Outside records reviewed: Reviewed oncology discharge summary from [facility] from May 28, 2023. 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 Patient was noted to have bony metastases C and T-spine breast liver. Differential diagnosis: Appendicitis, ovarian cyst, ovarian torsion, ectopic , TOA, PID, diverticulitis, UTI, obstruction, inflammatory bowel disease, renal colic, PUD, pancreatitis, biliary pathology, hernia, volvulus, constipation, as well as other pathologies were considered. Diagnostics, as interpreted by me: ECG: None Cardiac monitoring: An order was placed for continuous cardiac monitoring. The monitor shows a rate of 82 with sinus rhythm. Patient was placed on pulse oximetry Medical decision rules: None Imaging studies: I informally interpreted the patient's CT abdomen pelvis does show gallstones with formal report to follow. HPI: Patient presents due to concern for abdominal pain. Patient states that her pain is in the epigastrium and right upper quadrant. Patient denies any chest pains or shortness of breath. Patient has had associated nausea and vomiting. The patient initially thought that she was constipated. The patient states that she would feel as though there was a ball located in her upper abdomen. The patient does have a known history of metastatic breast cancer and states that she did try to take her chemotherapy on Thursday but vomited. The patient was able to take her meds on Thursday. Patient states that she did take some mag citrate would stay down but did have worsening pain today and associated nausea vomiting. Patient denies any falls or trauma. Patient denies any blood in the urine or stool. Patient states that she did have a bowel movement that was fairly loose in nature after taking the mag citrate on Thursday. PAST MEDICAL HISTORY: See Below PAST SURGICAL HISTORY: See Below SOCIAL HISTORY: See Below HOME MEDICATIONS: See Below ALLERGIES: See Below VITALS: See Below PHYSICAL EXAMINATION: GENERAL: NAD, non-toxic. Wearing glasses. EYE EXAM: Normal conjunctiva. PERRL, no anisocoria and EOM's grossly intact w/o pain. OROPHARYNX: Moist mucus membranes, grossly normal dentition. NECK: Trachea midline, no stridor. Supple, no nuchal rigidity, no adenopathy, non-tender. No signs of meningismus. FROM of the neck with good chin to chest and neck extension. LUNGS: Clear to auscultation. Normal chest wall mechanics. HEART: NSR, no MRG. ABDOMEN: Abdomen soft, right upper quadrant, positive Dueñas's, epigastric pain, no masses, no rebound or guarding. BACK: No CVA TTP. SKIN: No rashes and no bruising. UPPER EXTREMITIES: Upper extremities are grossly normal. LOWER EXTREMITIES: Grossly normal, no edema. NEURO EXAM: A&O x3, cranial nerves II-XII grossly intact, normal speech, moves all 4 extremities. Past Med/Surg History Medical History Infertility with first /medications only. History of COVID-24 November 2021 -> mild symptoms. Obese Missed hx History of cervical dysplasia Surgical History History of dilatation and curettage S/p bilateral myringotomy with tube placement S/P tympanoplasty right? Previous delivery affecting , antepartum History of low transverse section x 2 with tubal ligation S/P wisdom tooth extraction S/P LEEP of cervix Family History Grandmother (Maternal) Breast cancer Aunt Breast cancer Grandfather Heart murmur Other Twins, both liveborn Social History Smoking Status: Former smoker Second Hand Exposure: No; Do You Dip or Chew Tobacco: No; Hx Alcohol Use: Yes Hx Substance Use: Yes Substance Use Type Other:: medicinal marjiuana Preferred Language: Kittitian Communication Ability: Effective Visual Impairment: No Limitations Disk Grinder Required: No Beliefs That Will Affect Care: None marital status: marital status details: Austin Li (36) [phone] Current Living Situation: Spouse Current Living Situation Comment: Pt lives with her Austin and dolores Edge 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 Feels Safe at Home: Yes Safety Concerns: Feels Safe At This Time Assistive Devices: None Allergies Allergies Allergy/AdvReac Type Severity Reaction Status Date / Time No Known Allergies Allergy Verified 07/12/23 15:58 Home Meds Home Medications Medication Instructions Recorded Confirmed Multivitamin W/Coq10 1 tab PO QAM 07/12/23 07/12/23 anastrozole 1 mg tablet 1 mg PO HS 07/12/23 07/12/23 ascorbic acid (vitamin C) 500 mg 0 mg PO QAM 07/12/23 07/12/23 tablet (Vitamin C) cholecalciferol (vitamin D3) 50 0 mcg PO QAM 07/12/23 07/12/23 mcg (2,000 unit) capsule (Vitamin D3) prochlorperazine maleate 10 mg 10 mg PO QPM 07/12/23 07/12/23 tablet ribociclib 600 mg/day (200 mg x 3) 600 mg PO HS 07/12/23 07/12/23 tablets (Kisqali) Previous Rx's Medication Instructions Recorded breast pump #1 ea 05/08/22 Results & Data (ED) Vital Signs Vital Signs - 24 hr 07/12/23 13:25 07/12/23 13:40 Temperature 36.9 C Temperature Source Temporal Artery Scan Pulse Rate 54 L Pulse Rate [Apical] 47 L Respiratory Rate 20 18 Blood Pressure 124/80 Blood Pressure [Right Arm] 120/77 Blood Pressure Mean 94 Blood Pressure Mean [Right Arm] 91 Pulse Oximetry 100 100 Oxygen Delivery Method Room Air Sepsis Recent Fever Within 48 Hours No Sepsis New/Unexplained Change in Mental Status N/A Sepsis Action Taken by Nursing No Action Required Home Medications Current Medication List: was personally reviewed by me Laboratory Data Attestation: I reviewed the patient's lab results. 07/15/23 05:55 07/15/23 05:55 Lab Results 07/12/23 07/12/23 Range/Units 13:44 13:59 WBC 2.53 L (4.8-10.8) K/ul RBC 4.53 (4.20-5.40) M/uL Hgb 11.9 L (12.0-16.0) g/dl Hct 38.3 (37.0-47.0) % MCV 84.5 (80.0-100.0) fL MCH 26.3 (25.0-34.0) pg MCHC 31.1 L (32.0-36.0) g/dL RDW Std Deviation 46.0 (36.4-46.3) fL RDW Coeff of Ara 19.3 H (11.5-14.5) % Plt Count 191 (130-400) K/uL MPV 9.5 (9.4-12.4) fL Immature Gran % (Auto) 0.0 % Neut % (Auto) 64.9 % Lymph % (Auto) 29.2 % Maverick % (Auto) 4.3 % Eos % (Auto) 0.8 % Baso % (Auto) 0.8 % Neut # (Auto) 1.64 (1.40-6.50) K/uL Lymph # (Auto) 0.74 L (1.20-3.40) K/uL Maverick # (Auto) 0.11 (0.11-0.59) K/uL Eos # (Auto) 0.02 (0.00-0.50) K/uL Baso # (Auto) 0.02 (0.00-0.20) K/uL Immature Gran # (Auto) 0.00 L (0.01-0.20) K/uL Sodium 139 (136-145) mmol/L Potassium 3.4 L (3.5-5.1) mmol/L Chloride 105 (98-107) mmol/L Carbon Dioxide 27 (21-32) mmol/L Anion Gap 7 (3-11) BUN 7 (6-23) mg/dl Creatinine 0.89 (0.6-1.2) mg/dl Est Cr Clr Drug Dosing 92.3 ml/min Est GFR ( Amer) 98.0 ml/min Est GFR (Non-Af Amer) 84.6 ml/min BUN/Creatinine Ratio 7.9 L (10-20) Glucose 100 H (70-99(Fasting)) mg/dl Calcium 9.1 (8.6-10.3) mg/dl Magnesium 2.4 (1.7-2.4) mg/dl Total Bilirubin 2.4 H (0.2-1.0) mg/dl AST 97 H (13-39) U/L ALT 157 H (7-52) U/L Alkaline Phosphatase 390 H (34-104) U/L Total Protein 7.4 (6.0-8.3) gm/dl Albumin 4.6 (3.4-5.0) gm/dl Globulin 2.8 (2.5-4.0) gm/dl Albumin/Globulin Ratio 1.6 (0.9-2) Lipase 20 (11-82) U/L Administered Medications Acetaminophen (Acetaminophen 325 Mg Tab) 650 mg PO Q4H PRN PRN Reason: Pain or Fever Stop: 08/11/23 20:18 Last Admin: 07/13/23 13:58 Dose: 650 mg Documented By: CAROL Anastrozole (Anastrozole 1 Mg Tab) 1 mg PO HS MIN Stop: 08/11/23 20:59 Last Admin: 07/12/23 22:52 Dose: 1 mg Documented By: MARIELLE Co-signed By: GORDON Hydroxyzine HCl (Hydroxyzine Hcl 10 Mg Tab) 10 mg PO HS PRN PRN Reason: Sleep (second line option) Stop: 08/13/23 22:37 Last Admin: 07/14/23 22:59 Dose: 10 mg Documented By: BRAYAN Piperacillin Sod/Tazobactam (Sod 4.5 gm/ Dextrose) 100 mls @ 25 mls/hr IV Q8H MIN; Protocol Stop: 07/22/23 20:59 Last Admin: 02/07/24 06:01 Dose: 25 mls/hr Documented By: Infusion: 07/15/23 00:52 Dose: Infused Documented By: Admin: 07/14/23 20:51 Dose: 25 mls/hr Documented By: Infusion: 07/14/23 16:36 Dose: Infused Documented By: Admin: 07/14/23 12:36 Dose: 25 mls/hr Documented By: Infusion: 07/14/23 09:10 Dose: Infused Documented By: Admin: 07/14/23 04:57 Dose: 25 mls/hr Documented By: Infusion: 07/14/23 00:38 Dose: Infused Documented By: Admin: 07/13/23 20:37 Dose: 25 mls/hr Documented By: Infusion: 07/13/23 16:02 Dose: Infused Documented By: Admin: 07/13/23 12:00 Dose: 25 mls/hr Documented By: Infusion: 07/13/23 08:47 Dose: Infused Documented By: Admin: 07/13/23 04:47 Dose: 25 mls/hr Documented By: Infusion: 07/13/23 00:55 Dose: Infused Documented By: Admin: 07/12/23 20:55 Dose: 25 mls/hr Documented By: MATT Metoclopramide HCl (Metoclopramide Hcl Inj 5 Mg/Ml 2 Ml Vial) 10 mg IV Q6H PRN PRN Reason: Nausea Stop: 08/11/23 20:18 Last Admin: 07/14/23 11:22 Dose: 10 mg Documented By: Admin: 07/13/23 17:13 Dose: 10 mg Documented By: Admin: 07/13/23 02:11 Dose: 10 mg Documented By: MARIELLE Morphine Sulfate (Morphine Sulfate 2 Mg/Ml Carp) 2 mg IV Q4H PRN PRN Reason: Pain Stop: 07/27/23 02:14 Last Admin: 07/14/23 20:54 Dose: 2 mg Documented By: Admin: 07/14/23 13:13 Dose: 2 mg Documented By: Admin: 07/14/23 08:40 Dose: 2 mg Documented By: Admin: 07/13/23 20:37 Dose: 2 mg Documented By: Admin: 07/13/23 14:24 Dose: 2 mg Documented By: Admin: 07/13/23 09:14 Dose: 2 mg Documented By: Admin: 07/13/23 02:29 Dose: 2 mg Documented By: MARIELLE Prochlorperazine (Prochlorperazine Maleate 10 Mg Tab) 10 mg PO QPM MIN Stop: 08/11/23 19:59 Last Admin: 07/14/23 20:48 Dose: Not Given Documented By: Admin: 07/13/23 20:23 Dose: Not Given Documented By: Admin: 07/12/23 21:46 Dose: Not Given Documented By: Admin: 07/12/23 21:04 Dose: 10 mg Documented By: MATT Senna/Docusate Sodium (Docusate Sodium/Senna 50/8.6mg Tab) 1 tab PO DAILY PRN PRN Reason: Constipation Stop: 08/12/23 11:14 Last Admin: 07/13/23 11:59 Dose: 1 tab Documented By: CAROL Discontinued Medications Sodium Chloride (Nss) 500 mls @ 999 mls/hr IV .Q31M MIN Stop: 07/12/23 14:30 Last Infusion: 07/12/23 16:11 Dose: Infused Documented By: Admin: 07/12/23 14:12 Dose: 999 mls/hr Documented By: MARIELLE(2) Piperacillin Sod/Tazobactam Sod (Zosyn) 4.5 gm in 100 mls @ 200 mls/hr IV NOW ONE Stop: 07/12/23 16:16 Last Infusion: 07/12/23 17:40 Dose: Infused Documented By: Admin: 07/12/23 16:11 Dose: 200 mls/hr Documented By: Potassium Chloride (K Luiz / Wtr) 10 meq in 100 mls @ 100 mls/hr IV ONE ONE Stop: 07/12/23 17:46 Last Infusion: 07/12/23 18:47 Dose: Infused Documented By: Admin: 07/12/23 17:39 Dose: 100 mls/hr Documented By: MATT Lactated Ringer's (Lr) 1,000 mls @ 125 mls/hr IV .Q8H [facility] Stop: 07/13/23 11:59 Last Admin: 07/12/23 21:57 Dose: Not Given Documented By: MARIELLE Sodium Chloride (Nss) 1,000 mls @ 100 mls/hr IV .Q10H MIN Stop: 07/13/23 07:59 Last Infusion: 07/13/23 08:10 Dose: Infused Documented By: Admin: 07/12/23 22:05 Dose: 100 mls/hr Documented By: MARIELLE Lactated Ringer's (Lr) 1,000 mls @ 80 mls/hr IV .[id number] MIN Stop: 07/15/23 00:14 Last Infusion: 07/15/23 02:00 Dose: Infused Documented By: Admin: 07/14/23 12:36 Dose: 80 mls/hr Documented By: RIANA Indomethacin (Indomethacin 50 Mg Supp) 100 mg [place] ONE ONE Stop: 07/14/23 08:27 Last Admin: 07/14/23 12:26 Dose: Not Given Documented By: RIANA Indomethacin (Indomethacin 50 Mg Supp) 100 mg [place] ONCE ONE Stop: 07/14/23 09:49 Last Admin: 07/14/23 12:26 Dose: Not Given Documented By: RIANA Ioversol (Optiray 320 500ml) 90 ml IV ONCE ONE Stop: 07/12/23 14:53 Last Admin: 07/12/23 14:53 Dose: 90 ml Documented By: DENISHA Metoclopramide HCl (Metoclopramide Hcl Inj 5 Mg/Ml 2 Ml Vial) 10 mg IV NOW STA Stop: 07/12/23 14:00 Last Admin: 07/12/23 14:11 Dose: 10 mg Documented By: MARIELLE(2) Morphine Sulfate (Morphine Sulfate 4 Mg/Ml 1 Ml Carp\Vial) 4 mg IV NOW STA Stop: 07/12/23 14:00 Last Admin: 07/12/23 14:11 Dose: 4 mg Documented By: MARIELLE(2) Imaging Data Radiologist's Impression: Abdomen/Pelvis CT 07/12/23 13:[address] WITH IV CONTRAST CT DOSE: 1125.2 mGy.cm HISTORY: Acute nausea and vomiting in a patient with history of metastatic breast cancer Vomiting, RUQ/epigastric pain; h/o breast CA w/ me TECHNIQUE: Multiaxial CT images of the abdomen and pelvis were performed following the IV administration of 90 cc of Optiray, A dose lowering technique was utilized adhering to the principles of ALARA. COMPARISON STUDY: 04/27/2023 FINDINGS: Partially imaged masslike asymmetry of the lateral left breast on image 1 series 3 measuring 4.5 cm. Asymmetric skin thickening of the left breast. Subpleural consolidation of the medial basal segment left lower lobe measuring 3.9 cm is similar to mildly improved from prior. Groundglass densities are noted within the lung bases, most pronounced in the left lower lobe with mild nodular intralobular septal thickening. No free air. Unremarkable spleen, pancreas and adrenal glands. Distended gallbladder with mild wall thickening and cholelithiasis. Mild intrahepatic connection hepatic biliary ductal dilation. The common bile duct measures up to 10 mm. There is a 5 mm stone noted within the distal common bile duct/ampulla on image 151. No pancreatic ductal dilation. Progressively worsening hepatic metastasis. The largest lesion within the inferior right hepatic lobe measures 5.3 cm, previously measured at 4.3 cm. Patency of the hepatic and portal veins. Unremarkable kidneys. No hydronephrosis unremarkable urinary bladder, uterus and adnexa. Aorta and IVC are unremarkable. Retroaortic left renal vein. Subcentimeter retroperitoneal lymph nodes. No bowel obstruction or bowel wall thickening. No ascites. Normal appendix. Small fat filled umbilical hernia. No acute fracture. Scattered skeletal metastasis have progressed and are mixed lytic and osteoblastic. IMPRESSION: 1. 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 2. Cholelithiasis with CT findings suggestive of acute cholecystitis. 3. Choledocholithiasis results in intrahepatic and extrahepatic biliary ductal dilation. 4. No bowel obstruction or bowel wall thickening. 5. Additional findings as above. ACT 112: Negative or not required by law. The above report was generated using voice recognition software. It may contain grammatical, syntax or spelling errors. Electronically signed by: El Barnett M.D. 07/12/2023 3:34 PM Discharge Plan Visit Data Chief Complaint: GI Assessment Stated Complaint: ABDOMINAL PAIN, VOMITING - HX BREAST CANCER ED Provider: Ector Hernandez Discharge Problem: Choledocholithiasis, Metastatic disease, Acute cholecystitis, Abdominal pain, RUQ, Nausea & vomiting Patient Disposition: Admitted As Inpatient Discharge Instructions Interventions: ED Discharge Assessment Last Done: 07/12/23 20:20 Discharge Problem: Metastatic disease Qualifiers: Area of secondary neoplastic involvement: unspecified site Qualified Code(s): C 79.9 - Secondary malignant neoplasm of unspecified site Nausea & vomiting Qualifiers: Vomiting type: unspecified Qualified Code(s): R11.2 - Nausea with vomiting, unspecified
[2023-07-12] MEDS: MoRPHine SULFATE 4 MG/ML 1 ML CARP\\VIAL IV STA (14:11)
[2023-07-12] MEDS: METOCLOPRAMIDE HCL INJ 5 MG/ML 2 ML VIAL IV STA (14:11)
[2023-07-12] MEDS: SODIUM CHLORIDE 0.9% 500 ML IV SCH (14:12)
[2023-07-12 14:17] LABS: Basophils # (auto) 0.02 K/uL (0.00-0.20); Basophils % (auto) 0.8 %; Eosinophils # (auto) 0.02 K/uL (0.00-0.50); Eosinophils % (auto) 0.8 %; Hematocrit (blood only) 38.3 % (37.0-47.0); Hemoglobin 11.9 g/dl (12.0-16.0); Lymphocytes # (auto) 0.74 K/uL (1.20-3.40); Lymphocytes % (auto) 29.2 %; Mean Corpuscular Hemoglobin 26.3 pg (25.0-34.0); Mean Corpuscular Hgb Conc 31.1 g/dL (32.0-36.0); Mean Corpuscular Volume 84.5 fL (80.0-100.0); Mean Platelet Volume 9.5 fL (9.4-12.4); Monocytes # (auto) 0.11 K/uL (0.11-0.59); Monocytes % (auto) 4.3 %; Neutrophils # (auto) 1.64 K/uL (1.40-6.50); Neutrophils % (auto) 64.9 %; Platelet Count 191 K/uL (130-400); RDW Coefficient of Variation 19.3 % (11.5-14.5); Red Blood Count 4.53 M/uL (4.20-5.40); White Blood Count 2.53 K/ul (4.8-10.8)
[2023-07-12 14:21] LABS: Albumin Globulin Ratio 1.6 (0.9-2); Albumin Level 4.6 gm/dl (3.4-5.0); BUN Creatinine Ratio 7.9 (10-20); Bilirubin,Total 2.4 mg/dl (0.2-1.0); Calcium 9.1 mg/dl (8.6-10.3); Creatinine Clr Calc Pharmacy 92.3 ml/min; Est GFR (Non-African American) 84.6 ml/min; Globulin 2.8 gm/dl (2.5-4.0); Potassium 3.4 mmol/L (3.5-5.1); Total Protein 7.4 gm/dl (6.0-8.3)
[2023-07-12] MEDS: OPTIRAY 320 500ml IV ONE (14:53)
--- NOTE | 2023-07-12 15:37 | CT Scan Report ---
ABDOMEN AND PELVIS CT WITH IV CONTRAST CT DOSE: 1125.2 mGy.cm HISTORY: Acute nausea and vomiting in a patient with history of metastatic breast cancer Vomiting, R UQ/epigastric pain; h/o breast CA w/ me TECHNIQUE: Multiaxial CT images of the abdomen and pelvis were performed following the IV administrat ion of 90 cc of Optiray, A dose lowering technique was utilized adhering to the principles of ALARA. COMPARISON STUDY: 04/27/2023 FINDINGS: Partially imaged masslike asymmetry of the lateral left breast on image 1 series 3 measurin g 4.5 cm. Asymmetric skin thickening of the left breast. Subpleural consolidation of the medial basal segment left lower lobe measuring 3.9 cm is similar to mildly improved from prior. Groundglass densi ties are noted within the lung bases, most pronounced in the left lower lobe with mild nodular intral obular septal thickening. No free air. Unremarkable spleen, pancreas and adrenal glands. Distended gallbladder with mild wall thickening and cholelithiasis. Mild intrahepatic connection hepatic biliary ductal dilation. The common bile duct m easures up to 10 mm. There is a 5 mm stone noted within the distal common bile duct/ampulla on image 151. No pancreatic ductal dilation. Progressively worsening hepatic metastasis. The largest lesion wi thin the inferior right hepatic lobe measures 5.3 cm, previously measured at 4.3 cm. Patency of the h epatic and portal veins. Unremarkable kidneys. No hydronephrosis unremarkable urinary bladder, uterus and adnexa. Aorta and IV C are unremarkable. Retroaortic left renal vein. Subcentimeter retroperitoneal lymph nodes. No bowel obstruction or bowel wall thickening. No ascites. Normal appendix. Small fat filled umbilica l hernia. No acute fracture. Scattered skeletal metastasis have progressed and are mixed lytic and os teoblastic. IMPRESSION: 1. 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 2. Cholelithiasis with CT findings suggestive of acute cholecystitis. 3. Choledocholithiasis results in intrahepatic and extrahepatic biliary ductal dilation. 4. No bowel obstruction or bowel wall thickening. 5. Additional findings as above. ACT 112: Negative or not required by law. The above report was generated using voice recognition software. It may contain grammatical, syntax o r spelling errors. Electronically signed by: El Barnett M.D. 07/12/2023 3:34 PM
--- NOTE | 2023-07-12 16:01 | History & Physical Report ---
Date of Service July 12, 2023 Assessment & Plan (1) Acute cholecystitis: Plan: Epigastric pain and vomiting that began on Monday 07/10 CT A/P revealed choledocholithiasis, and findings suggestive of acute cholecystitis; also noted progressive metastatic disease with hepatic and skeletal metastasis Elevated total bilirubin, AST, ALT, and alk phos Leukopenia in the setting of chemotherapy; afebrile Zosyn 4.5 mg IV q8h Acetaminophen as needed for pain/fever Reglan as needed for nausea/vomiting Clear liquid diet, then n.p.o. at midnight Continue IVF GI consulted General surgery consulted A.m. CBC, BMP (2) Choledocholithiasis: Plan: ED discussed case with GI, and was informed that Dr. Mcnamara will be available tomorrow on 07/13 for potential ERCP (3) Malignant neoplasm of breast metastatic to bone: Plan: Metastatic breast cancer diagnosis in April [address] Zepeda ([facility]) Continue anastrozole, with prochlorperazine taken 1 hour prior Hold ribociclib in the setting of hepatobiliary toxicity; QTc 432 on 07/07/2023 (4) Hypokalemia: Plan: Mild; K 3.4 on arrival K rider 10mEq x 1 Recheck a.m. labs Plan Disposition: Admit to MedSurg telemetry Full code Clear liquid diet, and n.p.o. at midnight VTE PPx: SCDs, encourage ambulation (hold chemical DVT PPx prior to ERCP) History of Present Illness Chief Complaint: Epigastric pain and vomiting Primary Care Provider: Davintricia Lovettkharda Felix is a 32-year-old female with PMH of breast cancer w/ mets to bone and liver. She presented for upper abdominal pain and vomiting that started on Monday 07/10. She has been unable to keep down her chemotherapy pills (anastrozole and ribociclib) due to vomiting; last took ribociclib on 07/09. She rates her epigastric pain 0/10 at present after receiving morphine in the ED. No radiation to the back, or anywhere else in the stomach, or down the legs. Pain is alleviated by lying flat. Worse when moving around, and eating foods. She has been tolerating solids and liquids at home. She last vomited this morning. No blood in vomit. She has not been taking any pain medication at home. However, patient reports that she tried to magnesium citrate last night, as she thought she was constipated; this induced some diarrhea. Abdominal surgical hx includes 2 C-sections in 2019, and 2022. No history of appendectomy. No prior changes in diet before vomiting started. Patient does not take blood thinners. Patient reports that she is unable to take Zofran, and regularly takes Compazine 1 hour prior to taking her chemotherapy pills. NKDA. Vital stable at time of admission. ED course: Zosyn 4.5 g IV Reglan 10 mg IV Morphine sulfate 4 mg IV NSS 500 mL IV ROS: Patient endorses lightheadedness, dry cough, epigastric pain, N/V, diarrhea and (after taking mag citrate). Patient denies fever, chills, sweating, body aches, hematemesis, SINGLETARY, chest pain, chest palpitations, SOB, blood in the urine or stool, dysuria, burning with urination, or numbness/tingling lower extremities bilaterally. Allergies Allergy/AdvReac Type Severity Reaction Status Date / Time No Known Allergies Allergy Verified 07/12/23 15:58 Home Medications Medication Instructions Recorded Confirmed Type breast pump #1 ea 05/08/22 07/12/23 Rx Multivitamin W/Coq10 1 tab PO QAM 07/12/23 07/12/23 History anastrozole 1 mg tablet 1 mg PO HS 07/12/23 07/12/23 History ascorbic acid (vitamin C) 500 mg 0 mg PO QAM 07/12/23 07/12/23 History tablet (Vitamin C) cholecalciferol (vitamin D3) 50 0 mcg PO QAM 07/12/23 07/12/23 History mcg (2,000 unit) capsule (Vitamin D3) prochlorperazine maleate 10 mg 10 mg PO QPM 07/12/23 07/12/23 History tablet ribociclib 600 mg/day (200 mg x 3) 600 mg PO HS 07/12/23 07/12/23 History tablets (Kisqali) Past Med/Surg History Medical History Infertility with first /medications only. History of COVID-24 November 2021 -> mild symptoms. Obese Missed hx History of cervical dysplasia Surgical History History of dilatation and curettage S/p bilateral myringotomy with tube placement S/P tympanoplasty right? Previous delivery affecting , antepartum History of low transverse section x 2 with tubal ligation S/P wisdom tooth extraction S/P LEEP of cervix Family History Grandmother (Maternal) Breast cancer Aunt Breast cancer Grandfather Heart murmur Other Twins, both liveborn Social History Smoking Status: Former smoker Second Hand Exposure: No; Do You Dip or Chew Tobacco: No; Hx Alcohol Use: No Hx Substance Use: No Preferred Language: Nepali Communication Ability: Effective Visual Impairment: No Limitations Central Communications Specialist Required: No Beliefs That Will Affect Care: None marital status: marital status details: Austin Almendarez (36) [phone] Current Living Situation: Family Current Living Situation Comment: Pt lives with her Austin and dolores Edge 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 Feels Safe at Home: Yes Assistive Devices: None Review of Systems Review of Systems: See HPI above Physical Exam Physical Exam: General: no acute distress; pleasant affect; non-toxic appearing; well- nourished; cooperative HEENT: normocephalic, atraumatic; no scleral icterus; PERRLA; moist mucus membrane; vision and hearing grossly intact Neck: supple; no lymphadenopathy; trachea midline Skin: warm, dry without signs of tenting; no cyanosis; no rashes, bruising, lesions, or erythema noted CV: chest wall NTP; RRR; S1/S2 normal; no murmurs/rubs/gallops; pulses intact and symmetric at radial, DP, and PT Lungs: no acute respiratory distress; symmetrical chest wall expansion; clear breath sounds across all lung cole w/o adventitious sounds; no wheezing ABD: Soft, NTP; RUQ NTP; BS present; no rebound/guarding; no ascites; no diste ntion; negative Dueñas sign MSK: no tics or fasciculations; no edema noted in the LEs b/l, nonerythematous Neuro: A&Ox3; normal mood and affect; fluent speech; no focal deficits; sensation grossly intact in the LEs b/l Results & Data Results & Data Vital Signs (Past 12 Hours) Vital Signs Temp Pulse Pulse Resp BP BP Pulse Ox 07/12/23 14:06 55 L 18 100 07/12/23 13:40 47 L 18 120/77 100 07/12/23 13:25 36.9 C 54 L 20 124/80 100 O2 Del Method 07/12/23 14:06 Room Air 07/12/23 13:40 Room Air 07/12/23 13:25 Laboratory Results Abnormal lab results 07/12/23 07/12/23 Range/Units 13:44 13:59 WBC 2.53 L (4.8-10.8) K/ul Hgb 11.9 L (12.0-16.0) g/dl MCHC 31.1 L (32.0-36.0) g/dL RDW Coeff of Ara 19.3 H (11.5-14.5) % Lymph # (Auto) 0.74 L (1.20-3.40) K/uL Immature Gran # (Auto) 0.00 L (0.01-0.20) K/uL Potassium 3.4 L (3.5-5.1) mmol/L BUN/Creatinine Ratio 7.9 L (10-20) Glucose 100 H (70-99(Fasting)) mg/dl Total Bilirubin 2.4 H (0.2-1.0) mg/dl AST 97 H (13-39) U/L ALT 157 H (7-52) U/L Alkaline Phosphatase 390 H (34-104) U/L Diagnostic Findings Abdomen/Pelvis CT 07/12/23 13:[address] WITH IV CONTRAST CT DOSE: 1125.2 mGy.cm HISTORY: Acute nausea and vomiting in a patient with history of metastatic breast cancer Vomiting, RUQ/epigastric pain; h/o breast CA w/ me TECHNIQUE: Multiaxial CT images of the abdomen and pelvis were performed followi ng the IV administration of 90 cc of Optiray, A dose lowering technique was utilized adhering to the principles of ALARA. COMPARISON STUDY: 04/27/2023 FINDINGS: Partially imaged masslike asymmetry of the lateral left breast on image 1 series 3 measuring 4.5 cm. Asymmetric skin thickening of the left breast. Subpleural consolidation of the medial basal segment left lower lobe measuring 3.9 cm is similar to mildly improved from prior. Groundglass densities are noted within the lung bases, most pronounced in the left lower lobe with mild nodular intralobular septal thickening. No free air. Unremarkable spleen, pancreas and adrenal glands. Distended gallbladder with mild wall thickening and cholelithiasis. Mild intrahepatic connection hepatic biliary ductal dilation. The common bile duct measures up to 10 mm. There is a 5 mm stone noted within the distal common bile duct/ampulla on image 151. No pancreatic ductal dilation. Progressively worsening hepatic metastasis. The largest lesion within the inferior right hepatic lobe measures 5.3 cm, previously measured at 4.3 cm. Patency of the hepatic and portal veins. Unremarkable kidneys. No hydronephrosis unremarkable urinary bladder, uterus and adnexa. Aorta and IVC are unremarkable. Retroaortic left renal vein. Subcentimeter retroperitoneal lymph nodes. No bowel obstruction or bowel wall thickening. No ascites. Normal appendix. Small fat filled umbilical hernia. No acute fracture. Scattered skeletal metastasis have progressed and are mixed lytic and osteoblastic. IMPRESSION: 1. 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 2. Cholelithiasis with CT findings suggestive of acute cholecystitis. 3. Choledocholithiasis results in intrahepatic and extrahepatic biliary ductal dilation. 4. No bowel obstruction or bowel wall thickening. 5. Additional findings as above. ACT 112: Negative or not required by law. The above report was generated using voice recognition software. It may contain grammatical, syntax or spelling errors. Electronically signed by: El Barnett M.D. 07/12/2023 3:34 PM Code Status & VTE Plan Code Status Full code VTE Prophylaxis Plan VTE Prophylaxis will be ordered: Yes Supervising Physician Co-Signing Physician Notes Patient seen and examined, chart reviewed, case discussed with DAISY Moran PA-C and I agree with the assessment and plan as above except as otherwise noted above. 32yo F with recently diagnosed metastatic breast cancer with mets to liver and bone on Kisquali/Anastrozole tx who presents with nausea, anorexia, and abdominal pain x2 days and who is found to have acute cholecystitis/choledocolithiasis. TBili, AST, ALT, alk phos are elevate. CT shows L breast mass with progressive metastatic disease and probable carinomatosis in addition to acute cholelithiasis, cholodoco with intrahepatic and extrahepatic ductal dilation, and acute cholecystitis. +abdominal pain improved to 0-1/10 post morphine. Surgery and GI consulted. Per GI ERCP w/ Dr. Mcnamara available tomorrow. Will admit, NPO at 0000, agree w/ continuing Zosyn. Will discuss w/ hemeonc due to noted progression of underlying malignancy above, ribociclib held on admit. Agree w/ assessment and management above. PG Care Time/CCT Total # of Minutes Spent Total Time Spent with Patient: Total time spent is greater than 50% in coordination of care (as documented) at patient's floor/unit and/or counseling patient: C[place] [address] INT INP/OBS CARE 2/55MIN Patient Type Established Medical Decision Making Moderate Complexity Diagnoses Acute cholecystitis K81.0 Choledocholithiasis K80.50 Malignant neoplasm of breast metastatic to bone C50.919; C79.51 Hypokalemia E87.6
[2023-07-12] MEDS: PIPERACILLIN/TAZOBACTAM 4.5 GM/100 ML BAG IV ONE (16:11)
[2023-07-12 17:07] LABS: Magnesium 2.4 mg/dl (1.7-2.4)
[2023-07-12] MEDS: POTASSIUM CHLORIDE / WTR 10 MEQ/100 ML PLCT IV ONE (17:39)
--- NOTE | 2023-07-12 20:00 | Surgery Consultation ---
Date of Consultation July 12, 2023 Assessment & Plan (1) Acute cholecystitis: Patient has been admitted on the hospital service. From surgical respective we recommend the following: Provide analgesics Provide antiemetics Provide IV fluid for hydration Continue antibiotics. Zosyn has been initiated in the emergency department Follow serial labs Patient has been allowed clear liquids for the present time. Would recommend making the patient n.p.o. after midnight (this has been ordered by the medical service) as she will likely require procedural intervention. The patient does have evidence of choledocholithiasis and gastroenterology has been consulted. Prior to entertaining cholecystectomy the patient will require an ERCP to provide resolution of her choledocholithiasis I did discuss with the patient the possibility of cholecystectomy but informed her of the need for correction of her choledocholithiasis beforehand. Patient will be visited by Dr. Rubio, my attending physician, of [facility] group general surgery. He will discuss with the patient if she wishes to potentially proceed with cholecystectomy after ERCP or if she would prefer to entertain any less invasive measures to treat her cholecystitis (percutaneous cholecystostomy, Axios stent) Additional recommendations be forthcoming based on her clinical course as unfolds (2) Choledocholithiasis: Supervising Physician Co-Signing Physician Notes pnt d/w LUCIA Spivey, labs and imaging reviewed, agree with above. 32 y/o female w/ metastatic breast ca, now with choledocholithiasis and cholecystitis. will await GI consult and possible ercp, may need less invasive form of treatment given chemo and ca. History of Present Illness Reason for Consultation: Cholecystitis History of Present Illness This is a 32-year-old female who presented the emergency department secondary to 3 days of abdominal pain. Patient says that the pain was initially most prevalent in the epigastric area but is now in the right upper quadrant. To the best of her knowledge it was unrelated to any meals. She also denies any postprandial pain in the past several weeks to months. With her current pain she notes that the pain did not radiate. She did not note any mitigating factors. She did report nausea and vomiting but did not have any fevers, shakes, or chills. Patient has had abdominal surgery in the form of 2 C- sections. She also reports that she has a history of metastatic breast cancer followed up with Dr. Zepeda locally. She is taking 2 oral chemotherapy agents. Since arrival to hospital the patient has had labs and imaging which independent reviewed. She did have a CT scan of the abdomen and pelvis that showed the patient had Bre lithiasis. The gallbladder was also noted to be distended with mild gallbladder wall thickening. There was intrahepatic biliary ductal dilatation noted. There is also a 5 mm gallstone identified in the distal common bile duct near the ampulla. These findings were concerning for choledocholithiasis as well as cholecystitis. Patient was also noted to have hepatic metastases which appear to be progressively worse when compared to previous CT scans. In addition there is also findings consistent with progressive metastatic disease secondary to the patient's known history of breast cancer as as there is a partially imaged left breast mass with concern for lymphangitic carcinomatosis along with skeletal metastases. Labs include a CBC her white blood cell count was 2.5. Hemoglobin and hematocrit were 11.9 and 38.3. Platelet count was normal. Chemistry profile showed sodium was 139 with a potassium of 3.4. BUN and creatinine were both normal. The patient's bilirubin was elevated at 2.4. Her AST and ALT were 97 and 157 respectively, both elevated. Her alkaline phosphatase was 390 which was also elevated. There is no elevation of her lipase. At the time of my interview she was resting comfortably in bed and she was in no distress. Allergies Allergy/AdvReac Type Severity Reaction Status Date / Time No Known Allergies Allergy Verified 07/12/23 15:58 Home Medications Medication Instructions Recorded Confirmed Type breast pump #1 ea 05/08/22 07/12/23 Rx Multivitamin W/Coq10 1 tab PO QAM 07/12/23 07/12/23 History anastrozole 1 mg tablet 1 mg PO HS 07/12/23 07/12/23 History ascorbic acid (vitamin C) 500 mg 0 mg PO QAM 07/12/23 07/12/23 History tablet (Vitamin C) cholecalciferol (vitamin D3) 50 0 mcg PO QAM 07/12/23 07/12/23 History mcg (2,000 unit) capsule (Vitamin D3) prochlorperazine maleate 10 mg 10 mg PO QPM 07/12/23 07/12/23 History tablet ribociclib 600 mg/day (200 mg x 3) 600 mg PO HS 07/12/23 07/12/23 History tablets (Kisqali) Patient History Medical History Infertility with first /medications only. History of COVID-24 November 2021 -> mild symptoms. Obese Missed hx History of cervical dysplasia Surgical History History of dilatation and curettage S/p bilateral myringotomy with tube placement S/P tympanoplasty right? Previous delivery affecting , antepartum History of low transverse section x 2 with tubal ligation S/P wisdom tooth extraction S/P LEEP of cervix Family History Grandmother (Maternal) Breast cancer Aunt Breast cancer Grandfather Heart murmur Other Twins, both liveborn Social History Smoking Status: Former smoker Second Hand Exposure: No; Do You Dip or Chew Tobacco: No; Hx Alcohol Use: Yes Hx Substance Use: Yes Substance Use Type Other:: medicinal blaisejilitaa Preferred Language: Luxembourger Communication Ability: Effective Visual Impairment: No Limitations Cold Type Artist Required: No Beliefs That Will Affect Care: None marital status: marital status details: Austin Almendarez (36) [phone] Current Living Situation: Spouse Current Living Situation Comment: Pt lives with her Austin and dolores Edge 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 Feels Safe at Home: Yes Safety Concerns: Feels Safe At This Time Assistive Devices: Glasses Review of Systems Constitutional: no fever and no chills Ear, Nose, Mouth, Throat: no hearing loss Respiratory: no cough and no dyspnea Cardiovascular: no chest pain Gastrointestinal: as per Subjective / HPI Genitourinary: no dysuria Musculoskeletal: no back pain Integumentary: no rash Neurologic: no localized weakness Physical Exam Constitutional: WD/WN, vitals as above Eyes: + anicteric sclerae ENMT: Ears: no hearing impairment and no external ear abnormality Sublingual jaundice is absent Neck: trachea midline Respiratory: normal respiratory effort; no respiratory distress and no labored breathing Cardiovascular: Rate/Rhythm: regular rate and regular rhythm Gastrointestinal (Abdomen): Abdomen is soft and nonrigid. It is nondistended. Bowel sounds are present. There is no rebound tenderness or guarding but patient did have significant tenderness in the right upper quadrant with palpation Musculoskeletal: No calf tenderness Skin: no rashes Neurologic: moves all extremities Psychiatric: A+Ox3, euthymic affect Results & Data Vital Signs (Past 12 Hours) Vital Signs Temp Pulse Pulse Resp BP BP Pulse Ox 07/12/23 18:30 55 L 18 116/70 97 07/12/23 16:52 60 16 109/60 100 07/12/23 14:06 55 L 18 100 07/12/23 13:40 47 L 18 120/77 100 07/12/23 13:25 36.9 C 54 L 20 124/80 100 O2 Del Method 07/12/23 18:30 Room Air 07/12/23 16:52 Room Air 07/12/23 14:06 Room Air 07/12/23 13:40 Room Air 07/12/23 13:25 PG Care Time/CCT Total # of Minutes Spent Total Time Spent with Patient: Total time spent is greater than 50% in coordination of care (as documented) at patient's floor/unit and/or counseling patient: Coding Level of Care Code 30137 IN/OBS CONSULT LVL 5,80M Diagnoses Acute cholecystitis K81.0 Choledocholithiasis K80.50
[2023-07-12] MEDS: PIPERACILLIN/TAZOBACTAM 4.5 GM in DEXTROSE 5% MINI-B 100 ML IV SCH (20:55)
[2023-07-12] MEDS: PROCHLORPERAZINE MALEATE 10 MG TAB PO SCH (21:04)
[2023-07-12] MEDS: LACTATED RINGER'S 1,000 ML IV SCH (21:57)
[2023-07-12] MEDS: SODIUM CHLORIDE 0.9% 1,000 ML IV SCH (22:05)
[2023-07-12] MEDS: ANASTROZOLE 1 MG TAB PO SCH (22:52)
[2023-07-13] MEDS: METOCLOPRAMIDE HCL INJ 5 MG/ML 2 ML VIAL IV PRN (02:11)
[2023-07-13] MEDS: MoRPHine SULFATE 2 MG/ML CARP IV PRN (02:29)
[2023-07-13 07:22] LABS: Basophils # (auto) 0.02 K/uL (0.00-0.20); Basophils % (auto) 0.8 %; Eosinophils # (auto) 0.02 K/uL (0.00-0.50); Eosinophils % (auto) 0.8 %; Hematocrit (blood only) 33.8 % (37.0-47.0); Hemoglobin 10.4 g/dl (12.0-16.0); Lymphocytes # (auto) 0.99 K/uL (1.20-3.40); Lymphocytes % (auto) 39.3 %; Mean Corpuscular Hemoglobin 26.1 pg (25.0-34.0); Mean Corpuscular Hgb Conc 30.8 g/dL (32.0-36.0); Mean Corpuscular Volume 84.9 fL (80.0-100.0); Mean Platelet Volume 9.4 fL (9.4-12.4); Monocytes # (auto) 0.14 K/uL (0.11-0.59); Monocytes % (auto) 5.6 %; Neutrophils # (auto) 1.35 K/uL (1.40-6.50); Neutrophils % (auto) 53.5 %; Platelet Count 162 K/uL (130-400); RDW Coefficient of Variation 19.4 % (11.5-14.5); RDW Standard Deviation 48.1 fL (36.4-46.3); Red Blood Count 3.98 M/uL (4.20-5.40); White Blood Count 2.52 K/ul (4.8-10.8)
[2023-07-13 07:35] LABS: BUN Creatinine Ratio 4.6 (10-20); Calcium 8.3 mg/dl (8.6-10.3); Creatinine Clr Calc Pharmacy 92.7 ml/min; Est GFR (African American) 100.7 ml/min; Est GFR (Non-African American) 86.9 ml/min; Potassium 4.1 mmol/L (3.5-5.1)
[2023-07-13 07:41] LABS: Prothrombin Time 11.4 Seconds (9.0-12.0)
--- NOTE | 2023-07-13 08:20 | Hospitalist Progress Note ---
Date of Service July 13, 2023 Assessment & Plan (1) Acute cholecystitis: Plan: CT A/P revealed choledocholithiasis, and findings suggestive of acute cholecystitis; also noted progressive metastatic disease with hepatic and skeletal metastasis Zosyn 4.5 mg IV q8h GI consulted, plans for ERCP 07/14 for clearing CBD prior to consideration of cholecystectomy General surgery consulted, will discuss cholecystectomy after ERCP (2) Malignant neoplasm of breast metastatic to bone: Plan: Metastatic breast cancer diagnosis in April [address] Zepeda ([facility]) Continue anastrozole, with prochlorperazine taken 1 hour prior Hold ribociclib in the setting of hepatobiliary toxicity; QTc 432 on 07/07/2023 (3) Hypokalemia: Plan: replete Plan Full code VTE PPx: SCDs, encourage ambulation (hold chemical DVT PPx prior to ERCP) Admission and Anticipated Discharge Date Admission Date: July 12, 2023 Results & Data Results & Data Vital Signs (Past 12 Hours) Vital Signs Temp Pulse Pulse Resp BP Pulse Ox O2 Del Method 07/13/23 07:39 97.7 F 55 L 18 98/57 L 96 Room Air 07/13/23 07:20 Room Air 07/13/23 06:01 53 L 07/13/23 04:35 99.1 F 61 20 107/65 98 Room Air 07/12/23 21:58 66 07/12/23 21:40 97.5 F L 63 20 112/74 99 Room Air PG Care Time/CCT Total # of Minutes Spent Total Time Spent with Patient: Total time spent is greater than 50% in coordination of care (as documented) at patient's floor/unit and/or counseling patient: Coding Diagnoses Acute cholecystitis K81.0 Malignant neoplasm of breast metastatic to bone C50.919; C79.51 Hypokalemia E87.6
--- NOTE | 2023-07-13 08:33 | Surgery Progress Note ---
Date of Service July 13, 2023 Assessment & Plan (1) Choledocholithiasis: Plan: Pt resting in bed abdominal pain in epigastric area and RUQ has been NPO denies cp, sob Had low grade temp 99.1 at 4am Currently waiting for GI to see her Will continue to monitor (2) Acute cholecystitis: Plan: Patient wants to discuss timing of possible cholecystectomy/axios stent, perc nicholas tube with oncology and Dr. Rubio Admission and Anticipated Discharge Date Admission Date: July 12, 2023 Supervising Physician Co-Signing Physician Notes pnt s&e, labs and imaging reviewed, agree with above. Metastatic breast cancer on chemo, admitted with choledocholithiasis and cholecystitis. abd soft, ttp in epigastrium and RUQ. neutropenia, lft's with obstructive pattern. imaging with choledocholithiasis. ERCP tomorrow, if symptoms persist despite clearing duct and abx, will consider axios stent as outpatient vs cholecystectomy Subjective Pt resting in bed abdominal pain in epigastric area and RUQ has been NPO denies cp, sob Waiting for GI to see her Review of Systems Constitutional: no fever Ear, Nose, Mouth, Throat: no hearing loss Respiratory: no dyspnea Cardiovascular: no chest pain Gastrointestinal: + abdominal pain; no nausea and no vomit ing Musculoskeletal: no muscle weakness Integumentary: no rash Psychiatric: no confusion Physical Exam Physical Exam: alert oriented, pleasant Constitutional: cooperative and comfortable; no acute distress ENMT: external ear and nose normal, oropharynx normal Neck: trachea midline, no thyromegaly Respiratory: normal respiratory effort and able to speak in complete sentences; no respiratory distress Cardiovascular: Rate/Rhythm: + bradycardic (55) Gastrointestinal (Abdomen): Inspection/Auscultation: abdomen not distended Percussion/Palpation: + abdomen tender, + guarding and abdomen soft Musculoskeletal: no cyanosis or clubbing, extremities motor strength 5/5 Psychiatric: A+Ox3, euthymic affect Results & Data Vital Signs (Past 12 Hours) Vital Signs Temp Pulse Pulse Resp BP Pulse Ox O2 Del Method 07/13/23 07:39 97.7 F 55 L 18 98/57 L 96 Room Air 07/13/23 07:20 Room Air 07/13/23 06:01 53 L 07/13/23 04:35 99.1 F 61 20 107/65 98 Room Air 07/12/23 21:58 66 07/12/23 21:40 97.5 F L 63 20 112/74 99 Room Air Results Complete Blood Count Results: RBC 3.98 M/uL (4.20-5.40) L 07/13/23 WBC 2.52 K/ul (4.8-10.8) L 07/13/23 Hgb 10.4 g/dl (12.0-16.0) L 07/13/23 Hct 33.8 % (37.0-47.0) L 07/13/23 Plt Count 162 K/uL (130-400) 07/13/23 Results CMP Results: Na 141 mmol/L (136-145) 07/13/23 K 4.1 mmol/L (3.5-5.1) 07/13/23 Cl 110 mmol/L (98-107) H 07/13/23 CO2 25 mmol/L (21-32) 07/13/23 Anion Gap 6 (3-11) 07/13/23 BUN 4 mg/dl (6-23) L 07/13/23 Creatinine 0.87 mg/dl (0.6-1.2) 07/13/23 Estimated GFR ( Amer) 100.7 ml/min 07/13/23 Estimated GFR (Non-Af Amer) 86.9 ml/min 07/13/23 BUN/Creatinine Ratio 4.6 (10-20) L 07/13/23 Glu 83 mg/dl (70-99(Fasting)) 07/13/23 Ca 8.3 mg/dl (8.6-10.3) L 07/13/23 Total Bilirubin 2.4 mg/dl (0.2-1.0) H 07/12/23 Direct Bilirubin 0.2 mg/dl (0-0.2) 05/12/23 AST 97 U/L (13-39) H 07/12/23 ALT 157 U/L (7-52) H 07/12/23 Alkaline Phosphatase 390 U/L (34-104) H 07/12/23 TP 7.4 gm/dl (6.0-8.3) 07/12/23 Albumin 4.6 gm/dl (3.4-5.0) 07/12/23 Globulin 2.8 gm/dl (2.5-4.0) 07/12/23 Albumin/Globulin Ratio 1.6 (0.9-2) 07/12/23 PG Care Time/CCT Total # of Minutes Spent Total Time Spent with Patient: Total time spent is greater than 50% in coordination of care (as documented) at patient's floor/unit and/or counseling patient: Coding Level of Care Code 98913 SUB INP/OBS CARE 07/02MIN Diagnoses Choledocholithiasis K80.50 Acute cholecystitis K81.0
--- NOTE | 2023-07-13 10:00 | Gastrointestinal Consultation ---
Date of Consultation July 13, 2023 Assessment & Plan (1) Acute cholecystitis: (2) Choledocholithiasis: Pt is a 32 yo female w hx of metastatic breast ca, admitted w choledocholithiasis and cholecystitis. - IV antibx coverage - CL diet today - NPO after midnight - ERCP by Dr. Shanel Mcnamara tomorrow - Surgery following - Trend LFTs Supervising Physician Co-Signing Physician Notes I saw and evaluated the patient. The patient is a very pleasant 32-year-old female who presented with several days of abdominal discomfort. Imaging shows evidence of choledocholithiasis. Given the patient's presentation we are planning for ERCP at next available which is on Thursday. I have discussed the risks and benefits of the procedure at length with the patient. Given the patient's other health problems which include metastatic breast cancer general surgery is contemplating whether cystectomy will be offered. If cholecystectomy is not an option for patient we could certainly make arrangements for outpatient placement of an Axios stent to her gallbladder. History of Present Illness Reason for Consultation: Choledocholithiasis Requesting Physician: Dr. Mark Anthony Shah Attending Physician: Dr. Shanel Mcnamara History of Present Illness Pt is a 32 yo female w PMHx of metastatic breast ca s/p radiation, on oral chemo who presented w c/o upper abd pain, n/v since 3 days ago. She denies any fever, chills, changes in her bowel habits. She thought she may have been constipated, took Mg. Citrate at home but symptoms did not improve. Upon evaluation, she was noted to have elevated LFTs but normal lipase. CT abd/pelvis showed cholelithiasis w cholecystitis. There is also choledocholithiasis w intra/extrahepatic biliary ductal dilation. Allergies Allergy/AdvReac Type Severity Reaction Status Date / Time No Known Allergies Allergy Verified 07/12/23 15:58 Home Medications Medication Instructions Recorded Confirmed Type breast pump #1 ea 05/08/22 07/12/23 Rx Multivitamin W/Coq10 1 tab PO QAM 07/12/23 07/12/23 History anastrozole 1 mg tablet 1 mg PO HS 07/12/23 07/12/23 History ascorbic acid (vitamin C) 500 mg 0 mg PO QAM 07/12/23 07/12/23 History tablet (Vitamin C) cholecalciferol (vitamin D3) 50 0 mcg PO QAM 07/12/23 07/12/23 History mcg (2,000 unit) capsule (Vitamin D3) prochlorperazine maleate 10 mg 10 mg PO QPM 07/12/23 07/12/23 History tablet ribociclib 600 mg/day (200 mg x 3) 600 mg PO HS 07/12/23 07/12/23 History tablets (Kisqali) Patient History Medical History Infertility with first /medications only. History of COVID-24 November 2021 -> mild symptoms. Obese Missed hx History of cervical dysplasia Surgical History History of dilatation and curettage S/p bilateral myringotomy with tube placement S/P tympanoplasty right? Previous delivery affecting , antepartum History of low transverse section x 2 with tubal ligation S/P wisdom tooth extraction S/P LEEP of cervix Family History Grandmother (Maternal) Breast cancer Aunt Breast cancer Grandfather Heart murmur Other Twins, both liveborn Social History Smoking Status: Former smoker Second Hand Exposure: No; Do You Dip or Chew Tobacco: No; Hx Alcohol Use: Yes Hx Substance Use: Yes Substance Use Type Other:: medicinal marjilitaa Preferred Language: Georgian Communication Ability: Effective Visual Impairment: No Limitations Forensic Science Examiner Required: No Beliefs That Will Affect Care: None marital status: marital status details: Austin Almendarez (36) [phone] Current Living Situation: Spouse Current Living Situation Comment: Pt lives with her Austin and dolores Edge 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 Feels Safe at Home: Yes Safety Concerns: Feels Safe At This Time Assistive Devices: Glasses Review of Systems Review of Systems: All systems reviewed & are unremarkable except as noted in HPI & below Physical Exam Constitutional: WD/WN, vitals as above well groomed, cooperative and comfortable Eyes: PERRL, conjunctivae normal, anicteric sclerae ENMT: external ear and nose normal, oropharynx normal Respiratory: normal respiratory effort, lungs clear to auscultation Cardiovascular: RRR, no murmur, no edema Gastrointestinal (Abdomen): Soft, TTP epigastric, BS hypoactive Skin: no rashes, warm and dry Psychiatric: A+Ox3, euthymic affect Lymphatic: no lymphedema Results & Data Vital Signs (Past 12 Hours) Vital Signs Temp Pulse Pulse Resp BP Pulse Ox O2 Del Method 07/13/23 07:39 36.5 C 55 L 18 98/57 L 96 Room Air 07/13/23 07:20 Room Air 07/13/23 06:01 53 L 07/13/23 04:35 37.3 C 61 20 107/65 98 Room Air 07/12/23 21:58 66
--- NOTE | 2023-07-13 11:22 | Hospitalist Progress Note ---
Date of Service July 13, 2023 Assessment & Plan (1) Acute cholecystitis: Plan: Epigastric pain and vomiting that began on Monday 07/10 CT A/P: choledocholithiasis, and findings suggestive of acute cholecystitis; also noted progressive metastatic disease with hepatic and skeletal metastasis Elevated total bilirubin, AST, ALT, and alk phos Leukopenia in the setting of chemotherapy; afebrile Continue Zosyn 4.5 mg IV q8h GI consulted ([facility]) - Continue abx - Clear liqud diet today - NPO at midnight for ERCP tomorrow, 07/[address] Mcnamara - trend LFTs General Surgery consulted - timing for cholecystectomy or stent tbd after discussion with GI and onco logy Acetaminophen prn pain/fever, Reglan prn nausea/vomiting A.m. CBC, CMP (2) Choledocholithiasis: Plan: - See above Plan for ERCP 07/[address] Mcnamara (3) Malignant neoplasm of breast metastatic to bone: Plan: Metastatic breast cancer diagnosis in April [address] Zepeda ([facility]) - I spoke with Dr Zepeda aware patient is admittied - formal consult placed, plans to see pt later today 07/13 Continue anastrozole, with prochlorperazine taken 1 hour prior Hold ribociclib in the setting of hepatobiliary toxicity; QTc 432 on 07/07/2023 (4) Hypokalemia: Plan: Mild; K 3.4 on arrival, received K rider 10mEq x 1 Improved now 4.1 on 07/13 Plan Dispo: continued inpatient stay DVT proh: SCDs, ambulation, defer chemical PPx prior to ERCP/surgery Admission and Anticipated Discharge Date Admission Date: July 12, 2023 Subjective Patient seen resting in bed. States that she has pain but well controlled at present. Had diarrhea at presentaton but took mag citrate prior to arrival. No bowel movement since. Plan for ERCP tomorrow. tolerating clear liquids. Questions about plan for chemo with her missed doses. Review of Systems Review of Systems: All systems reviewed & are unremarkable except as noted in Subjective Physical Exam Physical Exam: General: resting in bed, NAD, VS as above Resp: normal respiratory effort, lungs clear to auscultation CV: RRR, no murmur, Abd: normal bowel sounds, tender RUQ, no hepatosplenomegaly Extremities: Moves all extremities, no edema Neuro: A&O x3, Skin: intact, no lesions noted Results & Data Results & Data Vital Signs (Past 12 Hours) Vital Signs Temp Pulse Pulse Resp BP Pulse Ox O2 Del Method 07/13/23 07:39 36.5 C 55 L 18 98/57 L 96 Room Air 07/13/23 07:20 Room Air 07/13/23 06:01 53 L 07/13/23 04:35 37.3 C 61 20 107/65 98 Room Air Laboratory Results CBC and chemistry reviewed PG Care Time/CCT Total # of Minutes Spent Total Time Spent with Patient: Total time spent is greater than 50% in coordination of care (as documented) at patient's floor/unit and/or counseling patient: Coding Level of Care Code 86219 SUB INP/OBS CARE 350MIN Diagnoses Acute cholecystitis K81.0 Choledocholithiasis K80.50 Malignant neoplasm of breast metastatic to bone C50.919; C79.51 Hypokalemia E87.6
[2023-07-13] MEDS: DOCUSATE SODIUM/SENNA 50/8.6MG TAB PO PRN (11:59)
[2023-07-13] MEDS: ACETAMINOPHEN 325 MG TAB PO PRN (13:58)
--- NOTE | 2023-07-13 14:44 | Oncology Consultation ---
Date of Consultation July 13, 2023 Assessment & Plan (1) Choledocholithiasis: Management per our GI colleagues, as well as hospital internal medicine colleagues. Biliary stent per recommendations of GI. I will however point out that her cancer is highly treatable and if there is external biliary compression due to cancer that should get better if the patient resumes her cancer treatment. However will leave the final decision with our GI colleagues. (2) Malignant neoplasm of breast metastatic to bone: Keeping in mind her acute illness will hold her breast cancer treatment. Counseled the patient to hold anastrozole, ribociclib. Will delay her Zoladex shot. Will delay her PET CT scan by 1 week. Explained the rationale to the patient, do not want to interfere with healing while she is dealing with acute illness. (3) Metastatic disease: Outpatient management of metastatic cancer. Plan Thank you for this interesting oncological consult. Medical oncology will continue to follow the patient and make appropriate recommendations History of Present Illness Attending Physician: Mark Anthony Shah MD History of Present Illness The patient is a very pleasant 32-year-old woman, very well-known to me because she has metastatic hormone positive breast cancer. Currently she is on treatment for metastatic hormone positive breast cancer and is currently on ribociclib, anastrozole, Zoladex monthly. She has been admitted in the hospital because of choledocholithiasis. Is currently being evaluated for gastroenterology for ERCP as well as possible biliary stent. Seems to be doing better right now. Currently on antibiotics. She was due for a PET scan later this month and supposed to get her next dose of Zoladex. Reports no fever chills or night sweats while I was in the room. Reports no nausea vomiting. Allergies Allergy/AdvReac Type Severity Reaction Status Date / Time No Known Allergies Allergy Verified 07/12/23 15:58 Home Medications Medication Instructions Recorded Confirmed Type breast pump #1 ea 05/08/22 07/12/23 Rx Multivitamin W/Coq10 1 tab PO QAM 07/12/23 07/12/23 History anastrozole 1 mg tablet 1 mg PO HS 07/12/23 07/12/23 History ascorbic acid (vitamin C) 500 mg 0 mg PO QAM 07/12/23 07/12/23 History tablet (Vitamin C) cholecalciferol (vitamin D3) 50 0 mcg PO QAM 07/12/23 07/12/23 History mcg (2,000 unit) capsule (Vitamin D3) prochlorperazine maleate 10 mg 10 mg PO QPM 07/12/23 07/12/23 History tablet ribociclib 600 mg/day (200 mg x 3) 600 mg PO HS 07/12/23 07/12/23 History tablets (Kisqali) Patient History Medical History Infertility with first /medications only. History of COVID-24 November 2021 -> mild symptoms. Obese Missed hx History of cervical dysplasia Surgical History History of dilatation and curettage S/p bilateral myringotomy with tube placement S/P tympanoplasty right? Previous delivery affecting , antepartum History of low transverse section x 2 with tubal ligation S/P wisdom tooth extraction S/P LEEP of cervix Family History Grandmother (Maternal) Breast cancer Aunt Breast cancer Grandfather Heart murmur Other Twins, both liveborn Social History Smoking Status: Former smoker Second Hand Exposure: No; Do You Dip or Chew Tobacco: No; Hx Alcohol Use: Yes Hx Substance Use: Yes Substance Use Type Other:: medicinal onel Preferred Language: Afghan Communication Ability: Effective Visual Impairment: No Limitations Digital Account Coordinator Required: No Beliefs That Will Affect Care: None marital status: marital status details: Austin Almendarez (36) [phone] Current Living Situation: Spouse Current Living Situation Comment: Pt lives with her Austin and dolores Edge 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
[2023-07-14 04:19] LABS: Basophils # (auto) 0.03 K/uL (0.00-0.20); Basophils % (auto) 1.3 %; Eosinophils # (auto) 0.03 K/uL (0.00-0.50); Eosinophils % (auto) 1.3 %; Hematocrit (blood only) 32.2 % (37.0-47.0); Hemoglobin 10.3 g/dl (12.0-16.0); Immature Granulocytes # (auto) 0.01 K/uL (0.01-0.20); Immature Granulocytes % (auto) 0.4 %; Lymphocytes # (auto) 0.98 K/uL (1.20-3.40); Lymphocytes % (auto) 42.4 %; Mean Corpuscular Hemoglobin 26.5 pg (25.0-34.0); Mean Corpuscular Volume 82.8 fL (80.0-100.0); Mean Platelet Volume 9.7 fL (9.4-12.4); Monocytes # (auto) 0.17 K/uL (0.11-0.59); Monocytes % (auto) 7.4 %; Neutrophils # (auto) 1.09 K/uL (1.40-6.50); Neutrophils % (auto) 47.2 %; Platelet Count 173 K/uL (130-400); RDW Coefficient of Variation 19.6 % (11.5-14.5); RDW Standard Deviation 46.6 fL (36.4-46.3); Red Blood Count 3.89 M/uL (4.20-5.40); White Blood Count 2.31 K/ul (4.8-10.8)
[2023-07-14 04:26] LABS: Albumin Globulin Ratio 1.6 (0.9-2); Albumin Level 3.9 gm/dl (3.4-5.0); BUN Creatinine Ratio 4.5 (10-20); Bilirubin,Total 1.8 mg/dl (0.2-1.0); Calcium 8.4 mg/dl (8.6-10.3); Creatinine Clr Calc Pharmacy 91.7 ml/min; Est GFR (African American) 99.4 ml/min; Est GFR (Non-African American) 85.7 ml/min; Globulin 2.5 gm/dl (2.5-4.0); Potassium 3.8 mmol/L (3.5-5.1); Total Protein 6.4 gm/dl (6.0-8.3)
--- NOTE | 2023-07-14 08:32 | Hospitalist Progress Note ---
Date of Service July 14, 2023 Assessment & Plan (1) Acute cholecystitis: Plan: Epigastric pain and vomiting that began on Monday 07/10 CT A/P: choledocholithiasis, and findings suggestive of acute cholecystitis; also noted progressive metastatic disease with hepatic and skeletal metastasis Elevated total bilirubin, AST, ALT, and alk phos Leukopenia in the setting of chemotherapy; afebrile GI consulted ([facility]) , Dr Mcnamara Continue Zosyn 4.5 mg IV q8h LFTs tending down/stable and will monitor s/p ERCP this morning with Dr Mcnamara for choledocholithiasis. Indomethacin given to decrease risk post-ERCP pancreatitis. Avoid ASA/NSAIDs x 1 week -Will need repeat ERCP in 6 weeks for stent removal -Will need 10 days abx. Patient concerned about timing for her chemo. Discussed w/ Dr Zepeda (see note, anastrazole placed on hold) and planning to delay everything by a week and let patient recover. LR @ 80cc/hr x 1 L post ERCP Clear liquid diet for today. Dr Rubio to discuss w/ patient about cholecystectomy vs outpatient Axios stent placement today. Appears leaning towards stent placement but will see how conversation goes. Did message [facility] to arrange for outpt Axios placement if not proceeding with cholecystectomy Pain control, antiemetics prn Monitor labs in AM (2) Choledocholithiasis: Plan: s/p ERCP today w/ Dr Mcnamara. See tx as above. Will need 10 days abx per GI (3) Malignant neoplasm of breast metastatic to bone: Plan: Metastatic breast cancer diagnosis in April [address] Zepeda ([facility]) Held ribociclib in the setting of hepatobiliary toxicity; QTc 432 on 07/07/2023 -Spoke with Dr Zepeda , aware patient is admitted . Seen patient 07/13, see note. Placed anastrole on hold and planning to bump back her treatment by a week to allow for healing (4) Hypokalemia: Plan: Mild; K 3.4 on arrival, K rider ordered and improved/stabilized on repeat. Mag wnl on check Plan Dispo: continued inpatient stay , clear liquid diet/abx as outlined. Surgery to discuss possible cholecystectomy vs outpt f/u [place] for Axios placement DVT proph: SCDs for now, ambulation encouraged. Defer chemoproph in setting of ERCP for today/possible nicholas, but if remaining inpatient can consider adding in AM Admission and Anticipated Discharge Date Admission Date: July 12, 2023 Subjective Eval this afternoon following ERCP for stone removal. Patient reports feeling fatigued. Has not eaten much but currently working on [place]. Not much epigastric discomfort, but more RUQ in nature. Reports no vomiting at present, has not yet spoken to Dr Rubio about cholecystitis. She has concerns about starting back on Chemo this upcoming thursday and concerns for being on antibiotics. Discussed if source control/removal could consider shortening but will see what finalized plan is and touch base w/ heme/oncology. Prior hematology/onc note report delay zoladex shot and delaying PET CT by 1 week to prevent interfering with healing while dealing with acute illness. Questions/concerns addressed at this time. Physical Exam Physical Exam: General: 32yo female resting in bed following ERCP, fatigued appearing, slight jaundiced appearance to skin Head atraumatic, normocephalic, mm slightly dry, trachea midline Resp: even/unlabored, no cough/tachypnea, on room air CV: RRR, no significant mrg, no pitting edema/calf tenderness GI: +BS, +RUQ tenderness, no guarding/rebound : no herrera MSK/Neuro: nonfocal , no slurred speech/facial droop Psych: AOx3, cooperative but fatigued appearing Skin: slight jaundiced appearance to skin Results & Data Results & Data Vital Signs (Past 12 Hours) Vital Signs Temp Pulse Pulse Resp BP BP Pulse Ox 07/14/23 07:32 36.9 C 54 L 18 104/65 96 07/14/23 07:13 59 L 07/14/23 03:37 36.6 C 61 18 95/58 L 95 07/13/23 23:39 37.1 C 61 18 97/59 L 95 07/13/23 22:00 61 O2 Del Method 07/14/23 07:32 Room Air 07/14/23 07:13 07/14/23 03:37 Room Air 07/13/23 23:39 Room Air 07/13/23 22:00 Laboratory Results 07/14/23 Range/Units 03:43 WBC 2.31 L (4.8-10.8) K/ul RBC 3.89 L (4.20-5.40) M/uL Hgb 10.3 L (12.0-16.0) g/dl Hct 32.2 L (37.0-47.0) % MCV 82.8 (80.0-100.0) fL MCH 26.5 (25.0-34.0) pg MCHC 32.0 (32.0-36.0) g/dL RDW Std Deviation 46.6 H (36.4-46.3) fL RDW Coeff of Ara 19.6 H (11.5-14.5) % Plt Count 173 (130-400) K/uL MPV 9.7 (9.4-12.4) fL Immature Gran % (Auto) 0.4 % Neut % (Auto) 47.2 % Lymph % (Auto) 42.4 % [place] % (Auto) 7.4 % Eos % (Auto) 1.3 % Baso % (Auto) 1.3 % Neut # (Auto) 1.09 L (1.40-6.50) K/uL Lymph # (Auto) 0.98 L (1.20-3.40) K/uL [place] # (Auto) 0.17 (0.11-0.59) K/uL Eos # (Auto) 0.03 (0.00-0.50) K/uL Baso # (Auto) 0.03 (0.00-0.20) K/uL Immature Gran # (Auto) 0.01 (0.01-0.20) K/uL Sodium 141 (136-145) mmol/L Potassium 3.8 (3.5-5.1) mmol/L Chloride 109 H (98-107) mmol/L Carbon Dioxide 24 (21-32) mmol/L Anion Gap 8 (3-11) BUN 4 L (6-23) mg/dl Creatinine 0.88 (0.6-1.2) mg/dl Est Cr Clr Drug Dosing 91.7 ml/min Est GFR ( Amer) 99.4 ml/min Est GFR (Non-Af Amer) 85.7 ml/min BUN/Creatinine Ratio 4.5 L (10-20) Glucose 83 (70-99(Fasting)) mg/dl Calcium 8.4 L (8.6-10.3) mg/dl Total Bilirubin 1.8 H (0.2-1.0) mg/dl AST 52 H (13-39) U/L ALT 99 H (7-52) U/L Alkaline Phosphatase 377 H (34-104) U/L Total Protein 6.4 (6.0-8.3) gm/dl Albumin 3.9 (3.4-5.0) gm/dl Globulin 2.5 (2.5-4.0) gm/dl Albumin/Globulin Ratio 1.6 (0.9-2) PG Care Time/CCT Total # of Minutes Spent Total Time Spent with Patient: Total time spent is greater than 50% in coordination of care (as documented) at patient's floor/unit and/or counseling patient: Coding Level of Care Code 29789 SUB INP/OBS CARE 50MIN Diagnoses Acute cholecystitis K81.0 Choledocholithiasis K80.50 Malignant neoplasm of breast metastatic to bone C50.919; C79.51 Hypokalemia E87.6
--- NOTE | 2023-07-14 08:55 | Gastroenterology Progress Note ---
Date of Service July 14, 2023 Assessment & Plan (1) Acute cholecystitis: (2) Choledocholithiasis: Plan: Pt is a 32 yo female w hx of metastatic breast ca, admitted w choledocholithiasis and cholecystitis. - IV antibx coverage - NPO ; ERCP by Dr. Shanel Mcnamara today - Surgery following - Trend LFTs Admission and Anticipated Discharge Date Admission Date: July 12, 2023 Supervising Physician Co-Signing Physician Notes I saw and evaluated the patient. We are planning for ERCP today for gallstone extraction. I discussed the risks and benefits of the procedure with the patient to include bleeding infection perforation pain pancreatitis and the need for follow-up studies. If the patient is deemed to not be a surgical candidate given her breast cancer history that we could make arrangements for outpatient prevention of her gallbladder with an Axios stent at [facility]. Subjective Pt c/o upper abd pain, no n/v. Is passing flatus, no BM Review of Systems Review of Systems: All systems reviewed & are unremarkable except as noted in HPI & below Physical Exam Constitutional: WD/WN, vitals as above well groomed, cooperative and comfortable Eyes: PERRL, conjunctivae normal, anicteric sclerae ENMT: external ear and nose normal, oropharynx normal Respiratory: normal respiratory effort, lungs clear to auscultation Cardiovascular: RRR, no murmur, no edema Gastrointestinal (Abdomen): TTP epigastric, and RUQ, soft, BS hypoactive. Skin: no rashes, warm and dry Psychiatric: A+Ox3, euthymic affect Lymphatic: no lymphedema Results & Data Vital Signs (Past 12 Hours) Vital Signs Temp Pulse Pulse Resp BP BP Pulse Ox 07/14/23 07:32 36.9 C 54 L 18 104/65 96 07/14/23 07:13 59 L 07/14/23 03:37 36.6 C 61 18 95/58 L 95 07/13/23 23:39 37.1 C 61 18 97/59 L 95 07/13/23 22:00 61 O2 Del Method 07/14/23 07:32 Room Air 07/14/23 07:13 07/14/23 03:37 Room Air 07/13/23 23:39 Room Air 07/13/23 22:00 Laboratory Results Laboratory Results - last 24 hr 07/14/23 03:43 WBC 2.31 L RBC 3.89 L Hgb 10.3 L Hct 32.2 L MCV 82.8 MCH 26.5 MCHC 32.0 RDW Std Deviation 46.6 H RDW Coeff of Ara 19.6 H Plt Count 173 MPV 9.7 Immature Gran % (Auto) 0.4 Neut % (Auto) 47.2 Lymph % (Auto) 42.4 Rapides % (Auto) 7.4 Eos % (Auto) 1.3 Baso % (Auto) 1.3 Neut # (Auto) 1.09 L Lymph # (Auto) 0.98 L Rapides # (Auto) 0.17 Eos # (Auto) 0.03 Baso # (Auto) 0.03 Immature Gran # (Auto) 0.01 Sodium 141 Potassium 3.8 Chloride 109 H Carbon Dioxide 24 Anion Gap 8 BUN 4 L Creatinine 0.88 Est Cr Clr Drug Dosing 91.7 Est GFR ( Amer) 99.4 Est GFR (Non-Af Amer) 85.7 BUN/Creatinine Ratio 4.5 L Glucose 83 Calcium 8.4 L Total Bilirubin 1.8 H AST 52 H ALT 99 H Alkaline Phosphatase 377 H Total Protein 6.4 Albumin 3.9 Globulin 2.5 Albumin/Globulin Ratio 1.[address] FINDINGS: Partially imaged masslike asymmetry of the lateral left breast on image 1 series 3 measuring 4.5 cm. Asymmetric skin thickening of the left breast. Subpleural consolidation of the medial basal segment left lower lobe measuring 3.9 cm is similar to mildly improved from prior. Groundglass densities are noted within the lung bases, most pronounced in the left lower lobe with mild nodular intralobular septal thickening. No free air. Unremarkable spleen, pancreas and adrenal glands. Distended gallbladder with mild wall thickening and cholelithiasis. Mild intrahepatic connection hepatic biliary ductal dilation. The common bile duct measures up to 10 mm. There is a 5 mm stone noted within the distal common bile duct/ampulla on image 151. No pancreatic ductal dilation. Progressively worsening hepatic metastasis. The largest lesion within the inferior right hepatic lobe measures 5.3 cm, previously measured at 4.3 cm. Patency of the hepatic and portal veins. Unremarkable kidneys. No hydronephrosis unremarkable urinary bladder, uterus and adnexa. Aorta and IVC are unremarkable. Retroaortic left renal vein. Subcentimeter retroperitoneal lymph nodes. No bowel obstruction or bowel wall thickening. No ascites. Normal appendix. Small fat filled umbilical hernia. No acute fracture. Scattered skeletal metastasis have progressed and are mixed lytic and osteoblastic.
[2023-07-14] MEDS ORDERED: MIDAZOLAM HCL 1 MG/ML 2ML VIAL ONE (09:13)
[2023-07-14] MEDS ORDERED: PROPOFOL IV EMULSION 10 MG/ML 100 ML VIAL IV ONE (09:13)
--- NOTE | 2023-07-14 09:59 | Anesthesiology Consultation ---
Date of Service July 14, 2023 Assessment & Plan Chart Review Chart Review: Acceptable Risk for Surgery Consults Requested none History Surgery Operation Date: 07/14/23 10:00 Proposed Procedures p Endoscopic Retrograde Cholangiopancreatogram - Shanel Mcnamara DO Height/Weight Height: 5 ft 4 in Weight: 78.4 kg Allergies Allergy/AdvReac Type Severity Reaction Status Date / Time No Known Allergies Allergy Verified 07/12/23 15:58 Medications Home Medications Medication Instructions Recorded Confirmed Last Taken breast pump #1 ea 05/08/22 07/12/23 Unknown Multivitamin W/Coq10 1 tab PO QAM 07/12/23 07/12/23 07/11/23 anastrozole 1 mg tablet 1 mg PO HS 07/12/23 07/12/23 07/11/23 ascorbic acid (vitamin C) 500 mg 0 mg PO QAM 07/12/23 07/12/23 07/11/23 tablet (Vitamin C) cholecalciferol (vitamin D3) 50 0 mcg PO QAM 07/12/23 07/12/23 07/11/23 mcg (2,000 unit) capsule (Vitamin D3) prochlorperazine maleate 10 mg 10 mg PO QPM 07/12/23 07/12/23 07/11/23 tablet ribociclib 600 mg/day (200 mg x 3) 600 mg PO HS 07/12/23 07/12/23 07/11/23 tablets (Kisqali) Active Medications Generic Name Dose Route Start Last Admin Trade Name Freq PRN Reason Stop Dose Admin Acetaminophen 650 mg 07/12/23 20:19 07/13/23 13:58 Acetaminophen 325 Mg Tab PO 08/11/23 20:18 650 mg Q4H PRN Administration Pain or Fever Anastrozole 1 mg 07/12/23 21:00 07/12/23 22:52 Anastrozole 1 Mg Tab PO 08/11/23 20:59 1 mg HS MIN Administration Piperacillin Sod/Tazobactam 100 mls @ 25 mls/hr 07/12/23 21:00 07/14/23 09:10 Sod 4.5 gm/ Dextrose IV 07/22/23 20:59 Infused Q8H MIN Infusion Protocol Metoclopramide HCl 10 mg 07/12/23 20:19 07/13/23 17:13 Metoclopramide Hcl Inj 5 Mg/Ml 2 Ml Vial IV 08/11/23 20:18 10 mg Q6H PRN Administration Nausea Morphine Sulfate 2 mg 07/13/23 02:15 07/14/23 08:40 Morphine Sulfate 2 Mg/Ml Carp IV 07/27/23 02:14 2 mg Q4H PRN Administration Pain Prochlorperazine 10 mg 07/12/23 20:00 07/13/23 20:23 Prochlorperazine Maleate 10 Mg Tab PO 08/11/23 19:59 Not Given QPM MIN Senna/Docusate Sodium 1 tab 07/13/23 11:07 07/13/23 11:59 Docusate Sodium/Senna 50/8.6mg Tab PO 08/12/23 11:14 1 tab DAILY PRN Administration Constipation NPO Date Last Intake of Fluids: 07/13/23 Time Last Intake of Fluids: 22:00 Date Last Intake of Solids: 07/13/23 Time Last Intake of Solids: 22:00 Past Medical History Medical History Infertility with first /medications only. History of COVID-24 November 2021 -> mild symptoms. Obese Missed hx History of cervical dysplasia Past Family History Family History Grandmother (Maternal) Breast cancer Aunt Breast cancer Grandfather Heart murmur Other Twins, both liveborn Past Surgical History Surgical History History of dilatation and curettage S/p bilateral myringotomy with tube placement S/P tympanoplasty right? Previous delivery affecting , antepartum History of low transverse section x 2 with tubal ligation S/P wisdom tooth extraction S/P LEEP of cervix Social History Smoking Status: Former smoker Do You Dip or Chew Tobacco: No Hx Alcohol Use: Yes alcohol intake frequency: a few times a month Hx Substance Use: Yes substance use type: marijuana Substance Use Type Other:: medicinal marjiuana Review of Systems Constitutional: no fever Ear, Nose, Mouth, Throat: no hearing loss Respiratory: no dyspnea Cardiovascular: no chest pain Gastrointestinal: + abdominal pain; no nausea and no vomiting Genitourinary (Female): no dysuria Musculoskeletal: no muscle weakness Integumentary: no rash Neurologic: no localized weakness Psychiatric: no confusion Physical Exam Vital Signs Last Vital Signs Temp 36.9 C 07/14/23 09:22 Pulse 51 L 07/14/23 09:22 Resp 18 07/14/23 09:22 BP 110/58 L 07/14/23 09:22 Pulse Ox 96 07/14/23 09:22 O2 Del Method Room Air 07/14/23 09:22 Constitutional WD/WN, vitals as above well groomed, cooperative and comfortable; no acute distress Eyes PERRL, conjunctivae normal, anicteric sclerae + anicteric sclerae ENMT external ear and nose normal, oropharynx normal Ears: no hearing impairment and no external ear abnormality Neck trachea midline, no thyromegaly trachea midline Respiratory normal respiratory effort, lungs clear to auscultation normal respiratory effort and able to speak in complete sentences; no respiratory distress and no labored breathing Cardiovascular RRR, no murmur, no edema Rate/Rhythm: regular rate, regular rhythm and + bradycardic (55) Gastrointestinal (Abdomen) Inspection/Auscultation: abdomen not distended Percussion/Palpation: + abdomen tender, + guarding and abdomen soft Musculoskeletal no cyanosis or clubbing, extremities motor strength 5/5 Skin no rashes, warm and dry no rashes Neurologic moves all extremities Psychiatric A+Ox3, euthymic affect Lymphatic no lymphedema Testing Laboratory Results 07/14/23 03:43 07/14/23 03:43 PT 11.4 Seconds (9.0-12.0) 07/13/23 06:48 INR 1.0 (0.9-1.1) 07/13/23 06:48
[2023-07-14] MEDS ORDERED: DexMEDEtomidine HCL IV 100 MCG/ML VIAL IV ONE (10:00)
--- NOTE | 2023-07-14 10:52 | GI REPORT ---
Patient Name: Elvira Almendarez Procedure Date: 07/14/2023 10:08 AM Date of : 1990 Admit Type: Inpatient Age: 32 Gender: Female Attending MD: Shanel Mcnamara DO, Procedure: ERCP Providers: Shanel Mcnamara DO Referring MD: Mark Anthony Shah, Kole Rubio Do Indications: Abdominal pain of suspected biliary origin, Bile duct stone on Computed Tomogram Scan Medicines: General Anesthesia Complications: No immediate complications. Estimated blood loss: Minimal. Estimated Blood Loss: Estimated blood loss was minimal. Procedure: Pre-Anesthesia Assessment: - Prior to the procedure, a History and Physical was performed, and patient medications, allergies and sensitivities were reviewed. The patient's tolerance of previous anesthesia was reviewed. - The risks and benefits of the procedure and the sedation options and risks were discussed with the patient. All questions were answered and informed consent was obtained. - Patient identification and proposed procedure were verified prior to the procedure by the physician, the nurse and the travel nurse. The procedure was verified in the pre-procedure area in the procedure room. - Pre-procedure physical examination revealed no contraindications to sedation. - ASA Grade Assessment: III - A patient with severe systemic disease. - After reviewing the risks and benefits, the patient was deemed in satisfactory condition to undergo the procedure. - The anesthesia plan was to use general anesthesia. - Immediately prior to administration of medications, the patient was re-assessed for adequacy to receive sedatives. - The heart rate, respiratory rate, oxygen saturations, blood pressure, adequacy of pulmonary ventilation, and response to care were monitored throughout the procedure. - The physical status of the patient was re-assessed after the procedure. After obtaining informed consent, the scope was passed under direct vision. Throughout the procedure, the patient's blood pressure, pulse, and oxygen saturations were monitored continuously. The Duodenoscope was introduced through the mouth, and advanced to the duodenum and used to inject contrast into the bile duct. The ERCP was accomplished without difficulty. The patient tolerated the procedure well. Findings: The heat sealing machine operator film was normal. The esophagus was successfully intubated under direct vision without detailed examination of the pharynx, larynx, and associated structures, and upper GI tract. The upper GI tract was grossly normal. The major papilla was congested. The bile duct was deeply cannulated with the short-nosed traction sphincterotome and guidewire. Contrast was injected. I personally interpreted the bile duct images. Contrast extended to the entire biliary tree. The main bile duct was moderately dilated, with a stone causing an obstruction. The largest diameter was 10 mm. The cystic duct was patent with several stones noted in the gallbladder Biliary sphincterotomy was made with a Fusion OMNI sphincterotome using ERBE electrocautery. There was no post-sphincterotomy bleeding. To discover objects, the biliary tree was swept with a 12 mm balloon starting at the bifurcation. Sludge was swept from the duct. . A few darkly stones were removed from the CBD. No stones remained. One 10 Fr by 9 cm biliary stent with a single external flap and a single internal flap was placed 9 cm into the common bile duct. Bile flowed through the stent. The stent was in good position. The endoscope was withdrawn from the patient. The total fluoroscopy exposure time was 11 seconds. Indomethacin 100 mg was given via suppository to decrease the risk of post-ERCP pancreatitis (PEP). Impression: - The major papilla appeared congested. - The entire main bile duct was moderately dilated, with a stone causing an obstruction. - Choledocholithiasis was found. Complete removal was accomplished by biliary sphincterotomy and balloon extraction. - A biliary sphincterotomy was performed. - The biliary tree was swept. - One biliary stent was placed into the common bile duct. - Indomethacin given to decrease risk of post-ERCP pancreatitis. Recommendation: - Avoid aspirin and nonsteroidal anti-inflammatory medicines for 1 week. - Clear liquid diet today. - Repeat ERCP in 6 weeks to remove stent. - If cholecystectomy not felt possible we can make arrangements for an outpatient placement of a Axios stent to the Gallbladder. Shanel Mcnamara D.O. Shanel Mcnamara, 07/14/2023 10:52:10 AM This report has been signed electronically. Note Initiated On: 07/14/2023 10:08 AM Number of Addenda: 0 I attest to the content of the Intraoperative Record and orders documented therein, exceptions below {[id number]}
--- NOTE | 2023-07-14 10:57 | Post Operative Brief Note ---
Immediate Post Op Note v1 Date of Surgery July 14, 2023 Pre & Post Diagnosis Operation Date: 07/14/23 10:00 Pre-Op Diagnosis: ABODMINAL PAIN, VOMITING, CHOLEDOCHOLITHIASIS Post-Op Diagnosis: choledocholithiasis I identified the patient and participated in the time-out.: Yes Procedure Operation Date: 07/14/23 10:00 Actual Procedures p Endoscopic Retrograde Cholangiopancreato - Shanel Mcnamara DO Surgeon Shanel Mcnamara, Nut Sorter Operator none Estimated Blood Loss 0 Findings Consistent with Post-Op Diagnosis
--- NOTE | 2023-07-14 10:59 | Communication Note ---
Date of Service: July 14, 2023 The patient underwent ERCP this morning for treatment of choledocholithiasis. We were able to remove several stones and sludge from the common bile duct. The cystic duct was patent. We did place a prophylactic biliary stent and will await general surgery decision with whether cholecystectomy will be offered. If cholecystectomy is not to be offered we could certainly provide outpatient therapy with an Axios gallbladder stent over the next 4 to 6 weeks. Recommendations continue IV hydration today Broad-spectrum antibiotic coverage for total of 10 days avoid nonsteroidals for 1 week May have clear liquids from a GI standpoint Please call with any questions or concerns GI to sign off Await surgical input. Repeat ERCP for stent removal in 6 to 12 weeks
[2023-07-14] MEDS ORDERED: ePHEDrine sulfate 50 MG/ML AMP IV PRN (11:00)
[2023-07-14] MEDS ORDERED: ATROPINE SULFATE 0.1 MG/ML 10ML SYR IV PRN (11:00)
--- NOTE | 2023-07-14 11:01 | Anesthesiology Progress Note ---
Date of Service July 14, 2023 Anesthesia Post Procedure Vital Signs Vital Signs: Temp Pulse Pulse Pulse Resp BP BP 07/14/23 10:50 54 L 16 106/66 07/14/23 10:43 36.2 C L 57 L 16 112/65 07/14/23 09:22 36.9 C 51 L 18 110/58 L 07/14/23 07:32 36.9 C 54 L 18 104/65 07/14/23 07:13 59 L 07/14/23 03:37 36.6 C 61 18 95/58 L 07/13/23 23:39 37.1 C 61 18 97/59 L 07/13/23 22:00 61 07/13/23 19:48 37.1 C 70 18 105/70 07/13/23 15:08 36.9 C 66 18 99/67 L 07/13/23 14:03 58 L 07/13/23 11:25 36.4 C L 63 18 113/78 Pulse Ox O2 Del Method O2 Flow Rate 07/14/23 10:50 100 Nasal Cannula 2 07/14/23 10:43 100 Nasal Cannula 2 07/14/23 09:22 96 Room Air 07/14/23 07:32 96 Room Air 07/14/23 07:13 07/14/23 03:37 95 Room Air 07/13/23 23:39 95 Room Air 07/13/23 22:00 07/13/23 19:48 97 Room Air 07/13/23 15:08 96 Room Air 07/13/23 14:03 07/13/23 11:25 97 Room Air Pain Intensity Abdomen: Pain Intensity: 6 Transfer of Care Handoff Completed per policy Notes Mental Status: alert / awake / arousable Patient Amnestic to Procedure: Yes Nausea / Vomiting: adequately controlled Pain: adequately controlled Airway Patency, RR, SpO2: stable & adequate BP & HR: stable & adequate Hydration State: stable & adequate Anesthetic Complications: no major complications apparent and Pt Satisfied with anesthetic care
--- NOTE | 2023-07-14 11:28 | Fluoroscopy Report ---
[place] ERCP biliary ductal CLINICAL HISTORY: ERCPacute right upper quadrant abdominal pain COMPARISON STUDY: CT 07/12/2023 FLUOROSCOPY TIME: 11.6 seconds FLUOROSCOPY IMAGES: 6 EXPOSURE DOSE: 2.47 mGy FINDINGS: Endoscope within the duodenum. Retrograde cannulation of the common bile duct with balloon sweep and subsequent common bile duct stent placement. Contrast also noted within the duodenum. IMPRESSION: Fluoroscopic assistance as above. ACT 112: Negative or not required by law. Electronically signed by: El Barnett M.D. 07/14/2023 11:27 AM
[2023-07-14] MEDS: INDOMETHACIN 50 MG SUPP PR ONE ×2 (12:26)
[2023-07-14] MEDS: LACTATED RINGER'S 1,000 ML IV SCH (12:36)
--- NOTE | 2023-07-14 13:50 | Surgery Progress Note ---
Date of Service July 14, 2023 Assessment & Plan (1) Choledocholithiasis: Plan: s/p ercp w/ stone removal and stent placement. Given chemo and cancer burden, will see how she does with abx and duct clearance. Depending on overall prognosis, if she is still symptomatic will consider cholecystectomy vs less invasive measure such as axios stent. cont abx per GI surgery will follow (2) Acute cholecystitis: Admission and Anticipated Discharge Date Admission Date: July 12, 2023 Subjective ERCP today with stone removal and stent. Still a little groggy from procedure. Physical Exam Constitutional: WD/WN, vitals as above Gastrointestinal (Abdomen): Percussion/Palpation: + abdomen tender (mild epigastric/ruq) Results & Data Vital Signs (Past 12 Hours) Vital Signs Temp Pulse Pulse Pulse Resp BP BP 07/14/23 11:00 36.2 C L 62 16 110/65 07/14/23 10:50 54 L 16 106/66 07/14/23 10:43 36.2 C L 57 L 16 112/65 07/14/23 09:22 36.9 C 51 L 18 110/58 L 07/14/23 07:32 36.9 C 54 L 18 104/65 07/14/23 07:13 59 L 07/14/23 03:37 36.6 C 61 18 95/58 L Pulse Ox O2 Del Method O2 Flow Rate 07/14/23 11:00 95 Room Air 07/14/23 10:50 100 Nasal Cannula 2 07/14/23 10:43 100 Nasal Cannula 2 07/14/23 09:22 96 Room Air 07/14/23 07:32 96 Room Air 07/14/23 07:13 07/14/23 03:37 95 Room Air PG Care Time/CCT Total # of Minutes Spent Total Time Spent with Patient: Total time spent is greater than 50% in coordination of care (as documented) at patient's floor/unit and/or counseling patient: Coding Level of Care Code 55267 SUB INP/OBS CARE 2/35MIN Diagnoses Choledocholithiasis K80.50 Acute cholecystitis K81.0
[2023-07-14] MEDS ORDERED: hydrOXYzine HCl 10 MG TAB PO PRN (22:38)
[2023-07-14] MEDS ORDERED: MELATONIN 3 MG TAB PO PRN (22:38)
[2023-07-14] MEDS: hydrOXYzine HCl 10 MG TAB PO PRN (22:59)
[2023-07-15 06:24] LABS: Hematocrit (blood only) 33.5 % (37.0-47.0); Mean Corpuscular Hemoglobin 27.2 pg (25.0-34.0); Mean Corpuscular Hgb Conc 32.8 g/dL (32.0-36.0); Mean Corpuscular Volume 82.7 fL (80.0-100.0); Mean Platelet Volume 9.7 fL (9.4-12.4); Platelet Count 159 K/uL (130-400); RDW Coefficient of Variation 19.5 % (11.5-14.5); RDW Standard Deviation 48.7 fL (36.4-46.3); Red Blood Count 4.05 M/uL (4.20-5.40); White Blood Count 2.43 K/ul (4.8-10.8)
[2023-07-15 06:51] LABS: Albumin Globulin Ratio 1.5 (0.9-2); Albumin Level 3.8 gm/dl (3.4-5.0); BUN Creatinine Ratio 5.8 (10-20); Bilirubin,Total 1.3 mg/dl (0.2-1.0); Calcium 8.6 mg/dl (8.6-10.3); Creatinine Clr Calc Pharmacy 93.3 ml/min; Est GFR (African American) 102.2 ml/min; Est GFR (Non-African American) 88.1 ml/min; Globulin 2.6 gm/dl (2.5-4.0); Magnesium 2.1 mg/dl (1.7-2.4); Potassium 3.9 mmol/L (3.5-5.1); Total Protein 6.4 gm/dl (6.0-8.3)
--- NOTE | 2023-07-15 07:28 | Hospitalist Progress Note ---
Date of Service July 15, 2023 Assessment & Plan (1) Acute cholecystitis: Plan: Epigastric pain and vomiting that began on Monday 07/10 CT A/P: choledocholithiasis, and findings suggestive of acute cholecystitis; also noted progressive metastatic disease with hepatic and skeletal metastasis Elevated total bilirubin, AST, ALT, and alk phos Leukopenia in the setting of chemotherapy; afebrile GI consulted (Samantha) , Dr Mcnamara s/p ERCP 07/[address] Mcnamara for choledocholithiasis. Indomethacin given to decrease risk post-ERCP pancreatitis. Avoid ASA/NSAIDs x 1 week -Will need repeat ERCP in 6 weeks for stent removal -Will need 10 days abx. Patient concerned about timing for her chemo. Discussed w/ Dr Zepeda (see note, anastrazole placed on hold) and planning to delay everything by a week and let patient recover. Diet advanced to low fat Zosyn 4.5 mg IV continued LFTs continued improvement, TB 1.3, AST 28, ALT 69, ALP around the same/slightly higher at 394 Discussed w/ hematology/surgery about possible cholecystectomy given prognosis w/ treatment per prior oncology note Dr Rubio saw patient this morning -- offered to perform cholecystectomy tomorrow (07/16), however patient w/ possible conflict/child getting picture taken. Seeing about able to take for pictures and will plan for surgery tomorrow/NPO at midnight if able to accommodate. Patient to alert RN once confirmed to pass along to surgery to get on schedule for tomorrow if able Pain control/antiemetics as needed Labs in AM/exam (2) Choledocholithiasis: Plan: s/p ERCP today w/ Dr Mcnamara. See tx as above. Will need 10 days abx per GI (?able to shorten if cholecystectomy in AM 07/16 -- will touch base if able to accomodate surgery) (3) Malignant neoplasm of breast metastatic to bone: Plan: Metastatic breast cancer diagnosis in April [address] Zepeda ([facility]) Held ribociclib in the setting of hepatobiliary toxicity; QTc 432 on 07/07/2023 -Spoke with Dr Zepeda , aware patient is admitted . Seen patient 07/13, see note. Placed anastradole on hold and planning to bump back her treatment by a week to allow for healing. Saw patient again 07/15 (4) Hypokalemia: Plan: Normalized on repeat/remaining stable. Mag wnl Plan Dispo: continued inpatient stay while seeing if able to accomodate w/ cholecystecomy tomorrow with Dr Rubio. Otherwise, likely need to be arranged outpatient in upcoming week w/ his partner or waiting following week when he is available Continue SCDs now, avoiding chemoproph in event for surgery in AM. No evidence for DVT at present Admission and Anticipated Discharge Date Admission Date: July 12, 2023 Subjective Eval this morning around 11am, on phone with her mother. She endorses frustrations about postponing her chemo treatment and will be about 3 weeks if she waits/abx and did see Dr Rubio this morning and offered to do the surgery in AM or the upcoming/following week (off next week) if not able to accommodate (or have partner do next week). She has child w/ pictures for tomorrow and working on having her to take him to the appointment and if able to be done she would like to have the surgery done tomorrow. Was told possible dc in evening if tolerates/does well, but also discussed if needing to keep overnight would try and dc in AM on thursday. Did have a little twinge of epigastric discomfort this morning, resolved. Discussed low fat diet but to alert of any worsening. Her RUQ pain is decreased compared to day prior and discussed hopefully continued IV abx will help w/ inflammation and outcomes for surgery improved. Questions/concerns addressed at this time. Physical Exam 2 Physical Exam: General: 32yo female sitting up in bed on the phone with her mom, improved fatigue, frustrated, NAD Head atraumatic, normocephalic, mm IMPROVED, trachea midline Resp: even/unlabored, no cough/tachypnea, on room air 95% CV: RRR, no significant mrg, no pitting edema/calf tenderness GI: +BS, decreased RUQ tenderness, no overt epigastric discomfort : no herrera MSK/Neuro: nonfocal , no slurred speech/facial droop Psych: AOx3, cooperative but fatigued appearing Skin: slight jaundiced appearance to skin IMPROVED Results & Data Results & Data Vital Signs (Past 12 Hours) Vital Signs Temp Pulse Pulse Resp BP Pulse Ox O2 Del Method 07/15/23 06:00 36.6 C 52 L 16 109/72 97 Room Air 07/15/23 02:06 54 L 07/14/23 22:35 36.7 C 57 L 16 99/69 L 96 Room Air Laboratory Results 07/15/23 Range/Units 05:55 WBC 2.43 L (4.8-10.8) K/ul RBC 4.05 L (4.20-5.40) M/uL Hgb 11.0 L (12.0-16.0) g/dl Hct 33.5 L (37.0-47.0) % MCV 82.7 (80.0-100.0) fL MCH 27.2 (25.0-34.0) pg MCHC 32.8 (32.0-36.0) g/dL RDW Std Deviation 48.7 H (36.4-46.3) fL RDW Coeff of Ara 19.5 H (11.5-14.5) % Plt Count 159 (130-400) K/uL MPV 9.7 (9.4-12.4) fL Sodium 141 (136-145) mmol/L Potassium 3.9 (3.5-5.1) mmol/L Chloride 108 H (98-107) mmol/L Carbon Dioxide 25 (21-32) mmol/L Anion Gap 8 (3-11) BUN 5 L (6-23) mg/dl Creatinine 0.86 (0.6-1.2) mg/dl Est Cr Clr Drug Dosing 93.3 ml/min Est GFR ( Amer) 102.2 ml/min Est GFR (Non-Af Amer) 88.1 ml/min BUN/Creatinine Ratio 5.8 L (10-20) Glucose 80 (70-99(Fasting)) mg/dl Calcium 8.6 (8.6-10.3) mg/dl Magnesium 2.1 (1.7-2.4) mg/dl Total Bilirubin 1.3 H (0.2-1.0) mg/dl AST 28 (13-39) U/L ALT 69 H (7-52) U/L Alkaline Phosphatase 394 H (34-104) U/L Total Protein 6.4 (6.0-8.3) gm/dl Albumin 3.8 (3.4-5.0) gm/dl Globulin 2.6 (2.5-4.0) gm/dl Albumin/Globulin Ratio 1.5 (0.9-2) PG Care Time/CCT Total # of Minutes Spent Total Time Spent with Patient: Total time spent is greater than 50% in coordination of care (as documented) at patient's floor/unit and/or counseling patient: Coding Level of Care Code 02654 SUB INP/OBS CARE 350MIN Diagnoses Acute cholecystitis K81.0 Choledocholithiasis K80.50 Malignant neoplasm of breast metastatic to bone C50.919; C79.51 Hypokalemia E87.6
--- NOTE | 2023-07-15 12:08 | Surgery Progress Note ---
Date of Service July 15, 2023 Assessment & Plan (1) Choledocholithiasis: Plan: metastatic breast ca w/ choledocholithiasis s/p ercp and stent. After discussion with onc, gi, and medicine, along with the patient, it appears that given her overall somewhat favorable prognosis she would benefit from cholecystectomy rather than less invasive temporizing treatment. plan for robotic assisted laparoscopic cholecystectomy with possible cholangiogram tomorrow risks discussed to include but not limited to bleeding, infection, retained stone, bile leak, open surgery, damage to surrounding structures including bile duct, need for future or more extensive surgery, failure to treat symptoms, and risks of anesthesia. potential d/c tomorrow after surgery (2) Acute cholecystitis: Admission and Anticipated Discharge Date Admission Date: July 12, 2023 Subjective s/p ercp yesterday with stone extraction and stent placement. Feeling better, no issue. Physical Exam Constitutional: WD/WN, vitals as above Gastrointestinal (Abdomen): Percussion/Palpation: + abdomen tender (mild ruq ttp, improving) and abdomen soft; no guarding and abdomen not rigid Results & Data Vital Signs (Past 12 Hours) Vital Signs Temp Pulse Pulse Pulse Resp BP Pulse Ox 07/15/23 11:50 36.6 C 62 18 110/68 96 07/15/23 07:30 36.7 C 51 L 18 106/62 95 07/15/23 06:00 36.6 C 52 L 16 109/72 97 07/15/23 02:06 54 L O2 Del Method 07/15/23 11:50 Room Air 07/15/23 07:30 Room Air 07/15/23 06:00 Room Air 07/15/23 02:06 PG Care Time/CCT Total # of Minutes Spent Total Time Spent with Patient: Total time spent is greater than 50% in coordination of care (as documented) at patient's floor/unit and/or counseling patient: Coding Level of Care Code 36057 SUB INP/OBS CARE 2/35MIN Diagnoses Choledocholithiasis K80.50 Acute cholecystitis K81.0
[2023-07-15] MEDS: MELATONIN 3 MG TAB PO PRN (21:07)
--- NOTE | 2023-07-15 21:30 | Hematology/Oncology Prog Note ---
Date of Service July 15, 2023 Assessment & Plan (1) Choledocholithiasis: Plan: Management per primary team as well as our surgical team. Would recommend the medically appropriate therapy. If that is cholecystectomy will recommend cholecystectomy. Will defer surgical planning and rest of the treatment per surgical colleagues expertise (2) Malignant neoplasm of breast metastatic to bone: Plan: . For breast cancer, will hold treatment while she is undergoing surgery. Will resume treatment once she has undergone surgery and has recovered. If have to hold treatment for a few days that is absolutely appropriate for the patient given that we are dealing with an unrelated medical issue which is choledocholithiasis Plan Medical oncology will continue to follow the patient and make appropriate recommendations. Case was discussed with our colleagues with hospital internal medicine as well as general surgery. Thank you for this interesting oncological consult Admission and Anticipated Discharge Date Admission Date: July 12, 2023 Subjective Currently feeling well. Reports no abdominal pain, back pain. Ports no fever or chills. Ports no nausea vomiting. Appetite is good, the patient is not losing weight. Results & Data Vital Signs (Past 12 Hours) Vital Signs Temp Pulse Pulse Pulse Resp BP BP 07/15/23 20:19 37.1 C 65 17 118/77 07/15/23 15:22 36.7 C 53 L 15 107/68 07/15/23 14:05 66 07/15/23 11:50 36.6 C 62 18 110/68 Pulse Ox O2 Del Method 07/15/23 20:19 97 Room Air 07/15/23 15:22 95 Room Air 07/15/23 14:05 07/15/23 11:50 96 Room Air
[2023-07-16] MEDS: diphenhydrAMINE 50 MG/ML VIAL IV STA (02:30)
--- NOTE | 2023-07-16 06:41 | Anesthesiology Consultation ---
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 Surgery Operation Date: 07/14/23 10:00 Proposed Procedures p Endoscopic Retrograde Cholangiopancreatogram - Shanel Mcnamara DO Operation Date: 07/16/23 11:30 Proposed Procedures p Robotic Laparoscopic Cholecystectomy - Kole Rubio DO, FACS Height/Weight Height: 5 ft 4 in Weight: 78.1 kg Allergies Allergy/AdvReac Type Severity Reaction Status Date / Time No Known Allergies Allergy Verified 07/12/23 15:58 Medications Home Medications Medication Instructions Recorded Confirmed Last Taken breast pump #1 ea 05/08/22 07/12/23 Unknown Multivitamin W/Coq10 1 tab PO QAM 07/12/23 07/12/23 07/11/23 anastrozole 1 mg tablet 1 mg PO HS 07/12/23 07/12/23 07/11/23 ascorbic acid (vitamin C) 500 mg 0 mg PO QAM 07/12/23 07/12/23 07/11/23 tablet (Vitamin C) cholecalciferol (vitamin D3) 50 0 mcg PO QAM 07/12/23 07/12/23 07/11/23 mcg (2,000 unit) capsule (Vitamin D3) prochlorperazine maleate 10 mg 10 mg PO QPM 07/12/23 07/12/23 07/11/23 tablet ribociclib 600 mg/day (200 mg x 3) 600 mg PO HS 07/12/23 07/12/23 07/11/23 tablets (Kisqali) Active Medications Generic Name Dose Route Start Last Admin Trade Name Freq PRN Reason Stop Dose Admin Acetaminophen 650 mg 07/12/23 20:19 07/13/23 13:58 Acetaminophen 325 Mg Tab PO 08/11/23 20:18 650 mg Q4H PRN Administration Pain or Fever Anastrozole 1 mg 07/12/23 21:00 07/12/23 22:52 Anastrozole 1 Mg Tab PO 08/11/23 20:59 1 mg HS MIN Administration Hydroxyzine HCl 10 mg 07/14/23 22:49 07/14/23 22:59 Hydroxyzine Hcl 10 Mg Tab PO 08/13/23 22:37 10 mg HS PRN Administration Sleep (second line option) Piperacillin Sod/Tazobactam 100 mls @ 25 mls/hr 07/12/23 21:00 07/16/23 04:11 Sod 4.5 gm/ Dextrose IV 07/22/23 20:59 25 mls/hr Q8H MIN Administration Protocol Melatonin 3 mg 07/14/23 22:49 07/15/23 21:07 Melatonin 3 Mg Tab PO 08/13/23 22:37 3 mg HS PRN Administration Sleep (first line) Metoclopramide HCl 10 mg 07/12/23 20:19 07/14/23 11:22 Metoclopramide Hcl Inj 5 Mg/Ml 2 Ml Vial IV 08/11/23 20:18 10 mg Q6H PRN Administration Nausea Morphine Sulfate 2 mg 07/13/23 02:15 07/16/23 02:30 Morphine Sulfate 2 Mg/Ml Carp IV 07/27/23 02:14 2 mg Q4H PRN Administration Pain Prochlorperazine 10 mg 07/12/23 20:00 07/16/23 02:12 Prochlorperazine Maleate 10 Mg Tab PO 08/11/23 19:59 Not Given QPM MIN Senna/Docusate Sodium 1 tab 07/13/23 11:07 07/13/23 11:59 Docusate Sodium/Senna 50/8.6mg Tab PO 08/12/23 11:14 1 tab DAILY PRN Administration Constipation NPO Date Last Intake of Fluids: 07/13/23 Time Last Intake of Fluids: 22:00 Date Last Intake of Solids: 07/13/23 Time Last Intake of Solids: 22:00 Past Medical History Medical History Infertility with first /medications only. History of COVID-24 November 2021 -> mild symptoms. Obese Missed hx History of cervical dysplasia Past Family History Family History Grandmother (Maternal) Breast cancer Aunt Breast cancer Grandfather Heart murmur Other Twins, both liveborn Past Surgical History Surgical History History of dilatation and curettage S/p bilateral myringotomy with tube placement S/P tympanoplasty right? Previous delivery affecting , antepartum History of low transverse section x 2 with tubal ligation S/P wisdom tooth extraction S/P LEEP of cervix Social History Smoking Status: Former smoker Do You Dip or Chew Tobacco: No Hx Alcohol Use: Yes alcohol intake frequency: a few times a month Hx Substance Use: Yes substance use type: marijuana Substance Use Type Other:: medicinal marjiuana Physical Exam Vital Signs Last Vital Signs Temp 98.6 F 07/16/23 04:36 Pulse 48 L 07/16/23 04:36 Resp 17 07/16/23 04:36 BP 98/63 L 07/16/23 04:36 Pulse Ox 92 07/16/23 04:36 O2 Del Method Room Air 07/16/23 04:36 O2 Flow Rate 2 07/14/23 10:50 Testing Laboratory Results 07/15/23 05:55 07/15/23 05:55 PT 11.4 Seconds (9.0-12.0) 07/13/23 06:48 INR 1.0 (0.9-1.1) 07/13/23 06:48
[2023-07-16 07:30] LABS: Basophils # (auto) 0.04 K/uL (0.00-0.20); Basophils % (auto) 1.5 %; Eosinophils # (auto) 0.03 K/uL (0.00-0.50); Eosinophils % (auto) 1.1 %; Hematocrit (blood only) 35.8 % (37.0-47.0); Hemoglobin 11.2 g/dl (12.0-16.0); Lymphocytes # (auto) 1.12 K/uL (1.20-3.40); Lymphocytes % (auto) 41.8 %; Mean Corpuscular Hemoglobin 26.6 pg (25.0-34.0); Mean Corpuscular Hgb Conc 31.3 g/dL (32.0-36.0); Mean Platelet Volume 9.4 fL (9.4-12.4); Monocytes % (auto) 11.2 %; Neutrophils # (auto) 1.19 K/uL (1.40-6.50); Neutrophils % (auto) 44.4 %; Platelet Count 167 K/uL (130-400); Red Blood Count 4.21 M/uL (4.20-5.40); White Blood Count 2.68 K/ul (4.8-10.8)
[2023-07-16 07:54] LABS: Albumin Level 3.9 gm/dl (3.4-5.0); BUN Creatinine Ratio 10.2 (10-20); Bilirubin Direct 0.2 mg/dl (0-0.2); Calcium 8.6 mg/dl (8.6-10.3); Creatinine Clr Calc Pharmacy 81.8 ml/min; Est GFR (African American) 87.2 ml/min; Est GFR (Non-African American) 75.3 ml/min; Magnesium 2.1 mg/dl (1.7-2.4); Total Protein 6.5 gm/dl (6.0-8.3)
--- NOTE | 2023-07-16 07:57 | Hospitalist Progress Note ---
Date of Service July 16, 2023 Assessment & Plan (1) Acute cholecystitis: Plan: Epigastric pain and vomiting that began on Monday 07/10 CT A/P: choledocholithiasis, and findings suggestive of acute cholecystitis; also noted progressive metastatic disease with hepatic and skeletal metastasis Elevated total bilirubin, AST, ALT, and alk phos Leukopenia in the setting of chemotherapy; afebrile GI consulted (Samantha) , Dr Mcnamara s/p ERCP 07/[address] Mcnamara for choledocholithiasis. Indomethacin given to decrease risk post-ERCP pancreatitis. Avoid ASA/NSAIDs x 1 week -Will need repeat ERCP in 6 weeks for stent removal -10 days abx. Patient concerned about timing for her chemo. Discussed w/ Dr Zepeda (see note, anastrazole placed on hold) and planning to delay everything by a week and let patient recover. Zosyn 4.5 mg IV continued LFTs continued improvement, TB 1.0, AST 20, ALT 48. -ALP elevated however to 404 NPO this morning for cholecystectomy with Dr Rubio Pain control/antiemetics as needed,. added PO oxycodone as needed and discussed would like her to be controlled w/ PO pain medications AND MOVE HER BOWELS prior to surgery. Ambulation encouraged prior/following surgery, added senna/docusate, miralax. Did get suppository yesterday. Passing some flatus, but no BM. Monitor Labs in AM/exam or if doing GREAT/pain controlled on PO and moving her bowels could consider dc tonight but as discussed would not want to dc until having bowel movement to prevent ileus/obstruction post-op. (2) Choledocholithiasis: Plan: s/p ERCP today w/ Dr Mcnamara. See tx as above. Will need 10 days abx per GI can see about shortening course w/ GI post-nicholas (3) Malignant neoplasm of breast metastatic to bone: Plan: Metastatic breast cancer diagnosis in April [address] Zepeda ([facility]) Held ribociclib in the setting of hepatobiliary toxicity; QTc 432 on 07/07/2023 -Spoke with Dr Zepeda , aware patient is admitted . Seen patient 07/13, see note. Placed anastrazole on hold and planning to bump back her treatment by a week to allow for healing. Saw patient again 07/15 (4) Hypokalemia: Plan: Normalized on repeat/remaining stable. Mag wnl Plan Dispo: NPO for nicholas with Dr Rubio today Continue SCDs now, avoiding chemoproph in setting of surgery. Ambulation encouraged (witnessed walking the halls after discussion prior to surgery this morning) Admission and Anticipated Discharge Date Admission Date: July 12, 2023 Supervising Physician Co-Signing Physician Notes The patient was not seen by me. The chart was reviewed. Case discussed with LUCIA Dunn. Agree with assessment and plan Subjective Evaluated this morning, awaiting surgery. Friend at bedside. on the phone watching birthday pictures this morning. Medicated with morphine. Did get suppository but no bowel movement. Passing some gas but discussed bowel sounds hypoactive and would take a couple labs around halls prior to surgery and will work on bowel regimen but would like her to have bowel movement PRIOR to discharge which may require her to stay overnight. Pain in her epigastric region/RUQ region. No fever/chills. Discussed oral pain control after IV and would like to be controlled on PO as well prior to dc. Questions/concerns addressed at this time. Physical Exam Physical Exam: General: 32yo female sitting up in bed on the phone with family, NAD, friend at bedside, decreased jaundiced appearance/almost completely resolved Head atraumatic, normocephalic, mmm, trachea midline Resp: even/unlabored, no cough/tachypnea, on room air 95% CV: RRR, no significant mrg, no pitting edema/calf tenderness GI: +BS but slightly hypoactive, +RUQ/epigastric tenderness, no guarding/rigidity, no peritoneal signs : no herrera MSK/Neuro: nonfocal , no slurred speech/facial droop Psych: AOx3, cooperative but fatigued appearing Skin: slight jaundiced appearance to skin IMPROVED/resolved Results & Data Results & Data Vital Signs (Past 12 Hours) Vital Signs Temp Pulse Pulse Resp BP BP Pulse Ox 07/16/23 07:45 36.6 C 45 L 18 107/70 96 07/16/23 04:36 37.0 C 48 L 17 98/63 L 92 07/16/23 00:53 53 L 07/15/23 23:00 37.2 C 65 16 108/70 97 07/15/23 20:19 37.1 C 65 17 118/77 97 O2 Del Method 02/08/24 07:45 Room Air 07/16/23 04:36 Room Air 07/16/23 00:53 07/15/23 23:00 Room Air 07/15/23 20:19 Room Air Laboratory Results 07/16/23 Range/Units 06:59 WBC 2.68 L (4.8-10.8) K/ul RBC 4.21 (4.20-5.40) M/uL Hgb 11.2 L (12.0-16.0) g/dl Hct 35.8 L (37.0-47.0) % MCV 85.0 (80.0-100.0) fL MCH 26.6 (25.0-34.0) pg MCHC 31.3 L (32.0-36.0) g/dL RDW Std Deviation 54.0 H (36.4-46.3) fL RDW Coeff of Ara 20.0 H (11.5-14.5) % Plt Count 167 (130-400) K/uL MPV 9.4 (9.4-12.4) fL Immature Gran % (Auto) 0.0 % Neut % (Auto) 44.4 % Lymph % (Auto) 41.8 % Mckinley % (Auto) 11.2 % Eos % (Auto) 1.1 % Baso % (Auto) 1.5 % Neut # (Auto) 1.19 L (1.40-6.50) K/uL Lymph # (Auto) 1.12 L (1.20-3.40) K/uL Mckinley # (Auto) 0.30 (0.11-0.59) K/uL Eos # (Auto) 0.03 (0.00-0.50) K/uL Baso # (Auto) 0.04 (0.00-0.20) K/uL Immature Gran # (Auto) 0.00 L (0.01-0.20) K/uL Sodium 140 (136-145) mmol/L Potassium 4.0 (3.5-5.1) mmol/L Chloride 108 H (98-107) mmol/L Carbon Dioxide 26 (21-32) mmol/L Anion Gap 6 (3-11) BUN 10 (6-23) mg/dl Creatinine 0.98 (0.6-1.2) mg/dl Est Cr Clr Drug Dosing 81.8 ml/min Est GFR ( Amer) 87.2 ml/min Est GFR (Non-Af Amer) 75.3 ml/min BUN/Creatinine Ratio 10.2 (10-20) Glucose 90 (70-99(Fasting)) mg/dl Calcium 8.6 (8.6-10.3) mg/dl Magnesium 2.1 (1.7-2.4) mg/dl Total Bilirubin 1.0 (0.2-1.0) mg/dl Direct Bilirubin 0.2 (0-0.2) mg/dl AST 20 (13-39) U/L ALT 48 (7-52) U/L Alkaline Phosphatase 404 H (34-104) U/L Total Protein 6.5 (6.0-8.3) gm/dl Albumin 3.9 (3.4-5.0) gm/dl PG Care Time/CCT Total # of Minutes Spent Total Time Spent with Patient: Total time spent is greater than 50% in coordination of care (as documented) at patient's floor/unit and/or counseling patient: Coding Level of Care Code 70209 SUB INP/OBS CARE 3/50MIN Diagnoses Acute cholecystitis K81.0 Choledocholithiasis K80.50 Malignant neoplasm of breast metastatic to bone C50.919; C79.51 Hypokalemia E87.6
[2023-07-16] MEDS ORDERED: ONDANSETRON INJ 2 MG/ML 2 ML VIAL ONE (11:03)
[2023-07-16] MEDS ORDERED: ROCURONIUM BROMIDE 10 MG/ML 5 ML VIAL IV ONE (11:03)
[2023-07-16] MEDS ORDERED: PROPOFOL IV EMULSION 10 MG/ML 20 ML VIAL IV ONE (11:03)
[2023-07-16] MEDS ORDERED: LIDOCAINE 2% 2 ML VIAL/AMP(20MG/ML) INFIL ONE (11:03)
[2023-07-16] MEDS ORDERED: DEXAMETHASONE SOD INJ 4 MG/ML VIAL ONE (11:03)
[2023-07-16] MEDS ORDERED: MIDAZOLAM HCL 1 MG/ML 2ML VIAL ONE (11:04)
[2023-07-16] MEDS ORDERED: fentaNYL citrate PF 100 MCG/2 ML VIAL ONE ×2 (11:04→12:51)
[2023-07-16] MEDS ORDERED: SUGAMMADEX SODIUM 200 MG/2 ML VIAL IV ONE (11:04)
[2023-07-16] MEDS: LACTATED RINGER'S 1,000 ML IV SCH (11:15)
[2023-07-16] MEDS: INDOCYANINE GREEN 25 MG VIAL INJ ONE (11:30)
[2023-07-16] MEDS ORDERED: ePHEDrine sulfate 50 MG/ML AMP IV PRN (11:53)
[2023-07-16] MEDS ORDERED: ATROPINE SULFATE 0.1 MG/ML 10ML SYR IV PRN (11:53)
--- NOTE | 2023-07-16 11:56 | Surgery Progress Note ---
Date of Service July 16, 2023 Assessment & Plan (1) Choledocholithiasis: Plan: metastatic breast ca w/ choledocholithiasis s/p ercp and stent. After discussion with onc, gi, and medicine, along with the patient, it appears that given her overall somewhat favorable prognosis she would benefit from cholecystectomy rather than less invasive temporizing treatment. plan for robotic assisted laparoscopic cholecystectomy with possible cholangiogram risks discussed to include but not limited to bleeding, infection, retained stone, bile leak, open surgery, damage to surrounding structures including bile duct, need for future or more extensive surgery, failure to treat symptoms, and risks of anesthesia. (2) Acute cholecystitis: Admission and Anticipated Discharge Date Admission Date: July 12, 2023 Subjective metastatic breast cancer, admitted with choledocholithiasis and cholecystitis, s/p ercp. No issues overnight. Physical Exam Constitutional: WD/WN, vitals as above Gastrointestinal (Abdomen): Percussion/Palpation: + abdomen tender (mild ruq ttp, improving) and abdomen soft; no guarding and abdomen not rigid Results & Data Vital Signs (Past 12 Hours) Vital Signs Temp Pulse Pulse Resp BP BP Pulse Ox 07/16/23 11:00 36.8 C 51 L 20 115/65 97 07/16/23 07:45 36.6 C 45 L 18 107/70 96 07/16/23 06:00 51 L 07/16/23 04:36 37.0 C 48 L 17 98/63 L 92 07/16/23 00:53 53 L O2 Del Method 07/16/23 11:00 Room Air 07/16/23 07:45 Room Air 07/16/23 06:00 07/16/23 04:36 Room Air 07/16/23 00:53 Laboratory Results Laboratory Results - last 24 hr 07/16/23 06:59 WBC 2.68 L RBC 4.21 Hgb 11.2 L Hct 35.8 L MCV 85.0 MCH 26.6 MCHC 31.3 L RDW Std Deviation 54.0 H RDW Coeff of Ara 20.0 H Plt Count 167 MPV 9.4 Immature Gran % (Auto) 0.0 Neut % (Auto) 44.4 Lymph % (Auto) 41.8 Trigg % (Auto) 11.2 Eos % (Auto) 1.1 Baso % (Auto) 1.5 Neut # (Auto) 1.19 L Lymph # (Auto) 1.12 L Trigg # (Auto) 0.30 Eos # (Auto) 0.03 Baso # (Auto) 0.04 Immature Gran # (Auto) 0.00 L Sodium 140 Potassium 4.0 Chloride 108 H Carbon Dioxide 26 Anion Gap 6 BUN 10 Creatinine 0.98 Est Cr Clr Drug Dosing 81.8 Est GFR ( Amer) 87.2 Est GFR (Non-Af Amer) 75.3 BUN/Creatinine Ratio 10.2 Glucose 90 Calcium 8.6 Magnesium 2.1 Total Bilirubin 1.0 Direct Bilirubin 0.2 AST 20 ALT 48 Alkaline Phosphatase 404 H Total Protein 6.5 Albumin 3.9 PG Care Time/CCT Total # of Minutes Spent Total Time Spent with Patient: Total time spent is greater than 50% in coordination of care (as documented) at patient's floor/unit and/or counseling patient: Coding Level of Care Code 46414 SUB INP/OBS CARE 2MIN Diagnoses Choledocholithiasis K80.50 Acute cholecystitis K81.0
[2023-07-16] MEDS: BUPIVACAINE 0.5 % 5 MG/1 ML MPF 30ML VIAL ONE (13:01)
--- NOTE | 2023-07-16 13:35 | Operative Report ---
PG Post Operative Report Pre & Post Diagnosis Operation Date: 07/16/23 11:30 Pre-Op Diagnosis: Choledocholithiasis Post-Op Diagnosis: Choledocholithiasis, cholecystitis I identified the patient and participated in the time-out.: Yes Procedure Operation Date: 07/16/23 11:30 Actual Procedures p Robotic Laparoscopic Cholecystectomy(Not Applicable) - Kole Rubio DO, FACS Surgeon Kole Rubio DO, FACS Manager Study None Estimated Blood Loss 5 Findings Consistent with Post-Op Diagnosis Moderate acute cholecystitis. Critical view of safety obtained, cystic duct and artery doubly clipped and divided. Specimens Gallbladder Anesthesia Type General Complications none Disposition Accompanied Patient To Recovery: No Disposition: Recovery Room Indications 32-year-old female with metastatic breast cancer admitted with choledocholithiasis and cholecystitis, status post ERCP with clearance of her duct. After discussion of her options she elected for cholecystectomy. Plan fo r robotic cholecystectomy. The risks of the procedure were discussed, all questions were answered, and the patient agreed to proceed with surgery as planned. Description of Procedure The patient was properly identified, consented, and taken to the operating room where she was placed in the supine position. 2.5 mg of indocyanine green were administered IV approximately 45 min prior to the surgery. General endotracheal anesthesia was induced. SCDs and a safety belt were placed. Preoperative antibiotics were administered. The patient's abdomen was prepped and draped in the standard sterile fashion. A surgical timeout was performed and all parties were in agreement that this was the correct patient and procedure to be performed and we continued as planned. An incision was made just above the umbilicus and to the right of midline. Veress needle was inserted and saline drop test confirmed entry to the abdomen. The abdomen was insufflated with carbon dioxide which the patient tolerated incident. Veress needle was removed and the abdomen is entered using the Optiview technique and a 5 mm camera. The introducer was removed and the abdomen inspected. No damage from initial trocar placement or Veress needle placement was identified. There were no significant abnormalities to the 4 quadrants of the abdomen. 8 mm robotic ports were then placed, 2 on the left and an additional 1 on the right. An additional 5 mm employment legal assistant port was placed in the lateral right subcostal position. The patient was placed in reverse Trendelenburg position and rotated towards the left. The robot was then docked and the camera and robotic instruments were inserted. The gallbladder was moderately and acutely inflamed. The dome of the gallbla dder was grasped and retracted towards the left upper quadrant and the infundibulum was retracted toward the right lower quadrant revealing Calot's triangle. Peritoneal attachments were taken down with electrocautery and blunt dissection. The cystic duct and artery were circumferentially dissected. A window of safety was obtained showing the cystic duct entering the gallbladder with no aberrant structures noted. We were able to identify the cystic duct utilizing the ICG. The cystic duct and artery were doubly clipped and divided. The gallbladder was then lifted off the gallbladder fossa with electrocautery. The right upper quadrant was irrigated and hemostasis was found to be good. The gallbladder was placed in an Endo Catch bag and removed through the one of the port sites. The fascia of the extraction site was closed with [id number] 0 Vicryl suture using a Merlin-Nawaf device. The instruments were removed and the robot was undocked. The trochars were removed and the abdomen was allowed to collapse. The skin of all ports was closed with 4-0 Monocryl subcuticular sutures. Dermabond was placed over the wounds. The patient was extubated in the operating room and taken to the PACU where she recovered without apparent incident. All sponge, instrument and needle counts were correct at the conclusion of the procedure. The patient tolerated the procedure well. I attest to the content of the Intraoperative Record and any orders documented therein. Any exceptions are noted below.
[2023-07-16] MEDS: ONDANSETRON INJ 2 MG/ML 2 ML VIAL IV PRN (14:00)
[2023-07-16] MEDS: fentaNYL citrate PF 100 MCG/2 ML VIAL IV PRN (14:20)
--- NOTE | 2023-07-16 14:42 | Anesthesiology Progress Note ---
Date of Service July 16, 2023 Anesthesia Post Procedure Vital Signs Vital Signs: Temp Pulse Pulse Pulse Resp BP BP 07/16/23 14:35 97.3 F L 55 L 20 107/65 07/16/23 14:25 56 L 14 103/70 07/16/23 14:15 58 L 12 114/73 07/16/23 14:05 62 12 114/73 07/16/23 13:55 72 14 114/72 07/16/23 13:45 97.3 F L 70 16 113/70 07/16/23 11:00 98.2 F 51 L 20 115/65 07/16/23 07:45 97.9 F 45 L 18 107/70 07/16/23 06:00 51 L 07/16/23 04:36 98.6 F 48 L 17 98/63 L 07/16/23 00:53 53 L 07/15/23 23:00 99.0 F 65 16 108/70 07/15/23 20:19 98.8 F 65 17 118/77 07/15/23 15:22 98.1 F 53 L 15 107/68 Pulse Ox O2 Del Method O2 Flow Rate 07/16/23 14:35 96 Nasal Cannula 2 07/16/23 14:25 95 Oxymask 2 07/16/23 14:15 96 Oxymask 2 07/16/23 14:05 96 Oxymask 4 07/16/23 13:55 96 Oxymask 4 07/16/23 13:45 98 Oxymask 6 07/16/23 11:00 97 Room Air 07/16/23 07:45 96 Room Air 07/16/23 06:00 07/16/23 04:36 92 Room Air 07/16/23 00:53 07/15/23 23:00 97 Room Air 07/15/23 20:19 97 Room Air 07/15/23 15:22 95 Room Air Pain Intensity Abdomen: Pain Intensity: 5 Transfer of Care Handoff Completed per policy Notes Mental Status: alert / awake / arousable and participated in evaluation Patient Amnestic to Procedure: Yes Nausea / Vomiting: adequately controlled Pain: adequately controlled Airway Patency, RR, SpO2: stable & adequate BP & HR: stable & adequate Hydration State: stable & adequate Anesthetic Complications: no major complications apparent and Pt Satisfied with anesthetic care
[2023-07-16] MEDS ORDERED: oxyCODONE HCL IR 5 MG TAB (IMMEDIATE RELEASE) PO PRN (15:02)
[2023-07-16] MEDS: MoRPHine SULFATE 4 MG/ML 1 ML CARP\\VIAL IV PRN (15:13)
[2023-07-16] MEDS: DOCUSATE SODIUM/SENNA 50/8.6MG TAB PO SCH (15:38)
[2023-07-16] MEDS: oxyCODONE HCL IR 5 MG TAB (IMMEDIATE RELEASE) PO PRN (17:00)
[2023-07-16] MEDS: POLYETHYLENE (MIRALAX) 17 GM PACK PO STA (22:23)
[2023-07-17 06:39] LABS: Hematocrit (blood only) 34.4 % (37.0-47.0); Mean Corpuscular Hemoglobin 26.9 pg (25.0-34.0); Mean Corpuscular Volume 84.1 fL (80.0-100.0); Mean Platelet Volume 9.9 fL (9.4-12.4); Platelet Count 183 K/uL (130-400); RDW Coefficient of Variation 19.8 % (11.5-14.5); RDW Standard Deviation 59.4 fL (36.4-46.3); Red Blood Count 4.09 M/uL (4.20-5.40)
[2023-07-17 06:58] LABS: Albumin Level 4.1 gm/dl (3.4-5.0); BUN Creatinine Ratio 12.9 (10-20); Bilirubin Direct 0.2 mg/dl (0-0.2); Bilirubin,Total 0.9 mg/dl (0.2-1.0); Calcium 8.8 mg/dl (8.6-10.3); Creatinine Clr Calc Pharmacy 94.8 ml/min; Est GFR (African American) 103.6 ml/min; Est GFR (Non-African American) 89.4 ml/min; Potassium 4.1 mmol/L (3.5-5.1); Total Protein 6.7 gm/dl (6.0-8.3)
[2023-07-17] MEDS: POLYETHYLENE (MIRALAX) 17 GM PACK PO SCH (08:05)
--- NOTE | 2023-07-17 10:38 | Hospitalist Progress Note ---
Date of Service July 17, 2023 Assessment & Plan (1) Acute cholecystitis: Plan: Epigastric pain and vomiting that began on Monday 07/10 CT A/P: choledocholithiasis, and findings suggestive of acute cholecystitis; also noted progressive metastatic disease with hepatic and skeletal metastasis Elevated total bilirubin, AST, ALT, and alk phos Leukopenia in the setting of chemotherapy; afebrile GI consulted ([facility]) , Dr Mcnamara s/p ERCP 07/[address] Mcnamara for choledocholithiasis. Indomethacin given to decrease risk post-ERCP pancreatitis. Avoid ASA/NSAIDs x 1 week -Will need repeat ERCP in 6 weeks for stent removal -10 days abx. Patient concerned about timing for her chemo. Discussed w/ Dr Zepeda (see note, anastrazole placed on hold) and planning to delay everything by a week and let patient recover. Zosyn 4.5 mg IV continued LFTs continued improvement, TB 1.0, AST 20, ALT 48. -ALP elevated however to 404 NPO this morning for cholecystectomy with Dr Rubio Pain control/antiemetics as needed,. added PO oxycodone as needed and discussed would like her to be controlled w/ PO pain medications AND MOVE HER BOWELS prior to surgery. Ambulation encouraged prior/following surgery, added senna/docusate, miralax. Did get suppository yesterday. Passing some flatus, but no BM. Monitor Labs in AM/exam or if doing GREAT/pain controlled on PO and moving her bowels could consider dc tonight but as discussed would not want to dc until having bowel movement to prevent ileus/obstruction post-op. 07/17 s/p nicholas, WBC not elevated/afebrile Continues on Zosyn IV, pain control, antiemetics prn Working on bowel regimen, suppository ordered . +BS on exam/flatus. Colace BID. Ambulation encouraged and if BM will plan for dc today (2) Choledocholithiasis: Plan: s/p ERCP today w/ Dr Mcnamara. See tx as above. Will need 10 days abx per GI can see about shortening course w/ GI post-nicholas (3) Malignant neoplasm of breast metastatic to bone: Plan: Metastatic breast cancer diagnosis in April [address] Zepeda ([facility]) Held ribociclib in the setting of hepatobiliary toxicity; QTc 432 on 07/07/2023 -Spoke with Dr Zepeda , aware patient is admitted . Seen patient 07/13, see note. Placed anastrazole on hold and planning to bump back her treatment by a week to allow for healing. Saw patient again 07/15 (4) Hypokalemia: Plan: Normalized on repeat/remaining stable. Mag wnl Plan Dispo: NPO for nicholas with Dr Rubio today Continue SCDs now, avoiding chemoproph in setting of surgery. Ambulation encouraged (witnessed walking the halls after discussion prior to surgery this morning) Admission and Anticipated Discharge Date Admission Date: July 12, 2023 Results & Data Results & Data Vital Signs (Past 12 Hours) Vital Signs Temp Pulse Pulse Resp BP Pulse Ox O2 Del Method 07/17/23 08:36 36.7 C 65 14 101/63 94 Room Air 07/16/23 23:59 70 PG Care Time/CCT Total # of Minutes Spent Total Time Spent with Patient: Total time spent is greater than 50% in coordination of care (as documented) at patient's floor/unit and/or counseling patient: Coding Diagnoses Acute cholecystitis K81.0 Choledocholithiasis K80.50 Malignant neoplasm of breast metastatic to bone C50.919; C79.51 Hypokalemia E87.6
[2023-07-17] MEDS: DOCUSATE SODIUM 100 MG CAP PO SCH (10:49)
[2023-07-17] MEDS: bisacodyL 10 MG SUPP PR STA (10:49)
--- NOTE | 2023-07-17 12:13 | Discharge Summary ---
Date of Service July 17, 2023 Admission HPI Per Admitting Provider Elvira is a 32-year-old female with PMH of breast cancer w/ mets to bone and liver. She presented for upper abdominal pain and vomiting that started on Monday 07/10. She has been unable to keep down her chemotherapy pills (anastrozole and ribociclib) due to vomiting; last took ribociclib on 07/09. She rates her epigastric pain 0/10 at present after receiving morphine in the ED. No radiation to the back, or anywhere else in the stomach, or down the legs. Pain is alleviated by lying flat. Worse when moving around, and eating foods. She has been tolerating solids and liquids at home. She last vomited this morning. No blood in vomit. She has not been taking any pain medication at home. However, patient reports that she tried to magnesium citrate last night, as she thought she was constipated; this induced some diarrhea. Abdominal surgical hx includes 2 C-sections in 2019, and 2022. No history of appendectomy. No prior changes in diet before vomiting started. Patient does not take blood thinners. Patient reports that she is unable to take Zofran, and regularly takes Compazine 1 hour prior to taking her chemotherapy pills. NKDA. Vital stable at time of admission. ED course: Zosyn 4.5 g IV Reglan 10 mg IV Morphine sulfate 4 mg IV NSS 500 mL IV ROS: Patient endorses lightheadedness, dry cough, epigastric pain, N/V, diarrhea and (after taking mag citrate). Patient denies fever, chills, sweating, body aches, hematemesis, SINGLETARY, chest pain, chest palpitations, SOB, blood in the urine or stool, dysuria, burning with urination, or numbness/tingling lower extremities bilaterally. Admission Exam Per Admitting Provider General: no acute distress; pleasant affect; non-toxic appearing; well- nourished; cooperative HEENT: normocephalic, atraumatic; no scleral icterus; PERRLA; moist mucus membrane; vision and hearing grossly intact Neck: supple; no lymphadenopathy; trachea midline Skin: warm, dry without signs of tenting; no cyanosis; no rashes, bruising, lesions, or erythema noted CV: chest wall NTP; RRR; S1/S2 normal; no murmurs/rubs/gallops; pulses intact and symmetric at radial, DP, and PT Lungs: no acute respiratory distress; symmetrical chest wall expansion; clear breath sounds across all lung cole w/o adventitious sounds; no wheezing ABD: Soft, NTP; RUQ NTP; BS present; no rebound/guarding; no ascites; no distention; negative Dueñas sign MSK: no tics or fasciculations; no edema noted in the LEs b/l, nonerythematous Neuro: A&Ox3; normal mood and affect; fluent speech; no focal deficits; sensation grossly intact in the LEs b/l Principal Diagnosis Choledocholithiasis, Cholecystitis Discharge Exam General: 32yo female walking back from bathroom, reporting feeling better but having some soreness from incisions, passing lots of gas and had small bowel just this morning no further significant jaundiced appearance Head atraumatic, normocephalic, mmm, trachea midline Resp: even/unlabored, no w/c/r, on room air CV: RRR, no significant mrg, no pitting edema/calf tenderness GI: +BS throughout, appropriately tender to incisions (look great, no drainage/significant erythema), no overt guarding/rigidity : no herrera MSK/Neuro: nonfocal , no slurred speech/facial droop Psych: AOx3, cooperative but fatigued appearing Skin: slight jaundiced appearance to skin RESOLVED Discharge Data Allergies Allergy/AdvReac Type Severity Reaction Status Date / Time No Known Allergies Allergy Verified 07/12/23 15:58 Consultations 07/12/23 15:59 ED Decision to Admit Stat 07/12/23 20:19 Consult Gastroenterology Routine Consult General Surgery Routine 07/13/23 11:14 Consult Oncology Routine Procedures Performed Operation Date: 07/16/23 11:30 Actual Procedures p Robotic Laparoscopic Cholecystectomy(Not Applicable) - Kole Rubio, , FACS Ordered Studies Abdomen/Pelvis CT 07/12/23 13:[address] WITH IV CONTRAST CT DOSE: 1125.2 mGy.cm HISTORY: Acute nausea and vomiting in a patient with history of metastatic breast cancer Vomiting, RUQ/epigastric pain; h/o breast CA w/ me TECHNIQUE: Multiaxial CT images of the abdomen and pelvis were performed following the IV administration of 90 cc of Optiray, A dose lowering technique was utilized adhering to the principles of ALARA. COMPARISON STUDY: 04/27/2023 FINDINGS: Partially imaged masslike asymmetry of the lateral left breast on image 1 series 3 measuring 4.5 cm. Asymmetric skin thickening of the left breast. Subpleural consolidation of the medial basal segment left lower lobe measuring 3.9 cm is similar to mildly improved from prior. Groundglass densities are noted within the lung bases, most pronounced in the left lower lobe with mild nodular intralobular septal thickening. No free air. Unremarkable spleen, pancreas and adrenal glands. Distended gallbladder with mild wall thickening and cholelithiasis. Mild intrahepatic connection hepatic biliary ductal dilation. The common bile duct measures up to 10 mm. There is a 5 mm stone noted within the distal common bile duct/ampulla on image 151. No pancreatic ductal dilation. Progressively worsening hepatic metastasis. The largest lesion within the inferior right hepatic lobe measures 5.3 cm, previously measured at 4.3 cm. Patency of the hepatic and portal veins. Unremarkable kidneys. No hydronephrosis unremarkable urinary bladder, uterus and adnexa. Aorta and IVC are unremarkable. Retroaortic left renal vein. Subcentimeter retroperitoneal lymph nodes. No bowel obstruction or bowel wall thickening. No ascites. Normal appendix. Small fat filled umbilical hernia. No acute fracture. Scattered skeletal metastasis have progressed and are mixed lytic and osteoblastic. IMPRESSION: 1. 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 2. Cholelithiasis with CT findings suggestive of acute cholecystitis. 3. Choledocholithiasis results in intrahepatic and extrahepatic biliary ductal dilation. 4. No bowel obstruction or bowel wall thickening. 5. Additional findings as above. ACT 112: Negative or not required by law. The above report was generated using voice recognition software. It may contain grammatical, syntax or spelling errors. Electronically signed by: El Barnett M.D. 07/12/2023 3:34 PM Endo Retro Cholangiopancreatogram 07/14/23 07:00 [place] ERCP biliary ductal CLINICAL HISTORY: ERCPacute right upper quadrant abdominal pain COMPARISON STUDY: CT 07/12/2023 FLUOROSCOPY TIME: 11.6 seconds FLUOROSCOPY IMAGES: 6 EXPOSURE DOSE: 2.47 mGy FINDINGS: Endoscope within the duodenum. Retrograde cannulation of the common bile duct with balloon sweep and subsequent common bile duct stent placement. Contrast also noted within the duodenum. IMPRESSION: Fluoroscopic assistance as above. ACT 112: Negative or not required by law. Electronically signed by: El Barnett M.D. 07/14/2023 11:27 AM Hospital Course (1) Acute cholecystitis: Epigastric pain and vomiting that began on Monday 07/10 CT A/P: choledocholithiasis, and findings suggestive of acute cholecystitis; also noted progressive metastatic disease with hepatic and skeletal metastasis Elevated total bilirubin, AST, ALT, and alk phos Leukopenia in the setting of chemotherapy; afebrile GI consulted ([facility]) , Dr Mcnamara s/p ERCP 07/[address] cMnamara for choledocholithiasis. Indomethacin given to decrease risk post-ERCP pancreatitis. Avoid ASA/NSAIDs x 1 week -Will need repeat ERCP in 6 weeks for stent removal -10 days abx. Patient concerned about timing for her chemo. Discussed w/ Dr Zepeda (see note, anastrazole placed on hold) and planning to delay everything by a week and let patient recover. General surgery, Dr Rubio consulted s/p laparoscopic nicholas on 07/[address] Rubio. Pathology pending No leukocytosis, fever. Pain controlled w/ oral medications today, tolerating low fat diet without issue. Suppository x 1 w/ BM and passing lots of gas. Continued bowel regimen/ambulation at home encouraged while on pain medcations. To alternate tylenol/oxycodone prn at home w/ bowel regimen Zosyn IV while inpatient with conversion to Augmentin PO to complete total 10 day course at discharge LFTs normalized on repeat with exception ALP at 438 but MUCH improved overall and stable for discharge from surgical perspective Outpt f/u hematology/oncology to discuss timing to resume her chemo/treatment for metastatic breast ca as below F/u general surgery in 2 weeks. 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 See tx as above. Will need 10 days abx per GI -can see about shortening course w/ GI post-nicholas (3) Malignant neoplasm of breast metastatic to bone: Metastatic breast cancer diagnosis in April [address] Zepeda ([facility]) Held ribociclib in the setting of hepatobiliary toxicity; QTc 432 on 07/07/[address] Zepeda ,seen patient while inpatient -Anastrazole placed on hold and to hold both her chemo medications until healed from surgery and timing to resume at discretion of Dr Zepeda in follow up (4) Hypokalemia: Normalized on repeat/remaining stable. Mag wnl w/ increased diet Plan discharged home on PO augmentin to complete 10 day course, oxycodone/tylenol prn, OTC bowel regimen to avoid NSAIDS/ASA x 1 week, f/u GI for stent removal in 12 weeks f/u hematology/oncology about timing to resume her treatment, held at discharge Total Time Total Time Spent Total Time Spent (In Minutes): 45 Discharge Plan Discharge Items Patient Disposition: Home - Self-Care Reason For Visit: ABODMINAL PAIN, VOMITING, CHOLEDOCHOLITHIASIS Discharge Diagnosis: laparoscopic cholecystectomy Goals: You have been hospitalized for an urgent problem which required surgery. During your stay at [facility], we have made an effort to correct the problem that brought you to the hospital while keeping you as comfortable as possible. Surgery and medications were used to bring your condition under control and your discharge instructions will include directions for any medications you should take after leaving the hospital. Please make sure to follow the advice of your surgeon regarding follow up with the surgeon and with your primary care provider. Activity: As commented below Lifting: No more than 10 pounds Bathing Comment: you can shower. No pools or baths for 2 weeks Exercise/Sports: Wait until after follow-up appointment Driving/Machine Use: no driving while on narcotics for pain Non-emergency contact: Surgeon Call non-emergency contact if: you have any medication questions, your pain is not controlled, your pain is worsening, your temperature is above 101, your wound has increased redness, your wound has increased drainage and your wound pain has increased Follow-up/Referrals: Kole Rubio DO, FACS [Physician] - (call office for a follow up in 2 weeks ) Shanel Mcnamara DO [Physician] - Davin Crews [Primary Care Provider] - 07/21/23 11:45 am Diet: Low Fat Diet Comment: low fat, advance diet as tolerated Addtl Attending Provider Instructions: You were hospitalized for abdominal pain and vomiting and found to have evidence for acute infection of your gallbladder with blocked duct. GI was consulted, Dr Mcnamara, and you underwent ERCP and stenting which will need to be removed in 12 weeks for stent removal. General surgery was consulted, Dr Rubio, and you underwent surgical removal of your gallbladder. Per GI, Dr Mcnamara, even though the gallbladder is removed, he wants you to have completed 10 day course of antibiotics given the findings on the ERCP. You will be sent home on oral antibiotics in the form of Augmentin which should be taken TWICE daily for an additional 4 days to complete the 10 day course (minus the IV antibiotics given in the hospital). Per Dr Zepeda, hematology/oncology, you should hold your anastrazole at this time and he will discuss timing to resume your chemotherapy/treatment in follow up once healed from the current infection. You are being sent home with pain medication to use as needed for control and should continue a bowel regimen with miralax/colace while on pain medications to prevent constipation. Please follow up with primary care, hematology/oncology, general surgery and gastroenterology at discharge as discussed. Please return to the ER with any increased/uncontrolled pain, fever, chest pain, shortness of breath, redness/drainage from your incision sites or for any other symptoms that are concerning for you. It has been a pleasure being a part of the medical team while you have been in the hospital and I wish you the best! Addtl Cleaner And Presser Provider Instructions: You have surgical glue called dermabond on your surgical site incisions. You may shower with this on. This will tend to come off within a couple of weeks. Do not pick at it. You may purchase Tylenol and or Ibuprofen over the counter if needed for addition pain control over the next few days. Take per manufacturers instructions, Do not take more than 3 grams of Tylenol in 24 hours. Pending Studies at Discharge: Yes Studies:: surgical pathology Stand-Alone Forms: My [employer], Work/School Release, Smoking Cessation Medications and DC Order Prescriptions: New sennosides-docusate sodium [Senokot-S] 8.6-50 mg Tablet 1 tab PO QAM Qty: 30 0RF oxycodone 5 mg Tablet 5 mg PO Q4H PRN (Reason: pain) Qty: 20 0RF polyethylene glycol 3350 [Miralax] 17 gram Powder In Packet 17 g PO DAILY Qty: 30 0RF amoxicillin-pot clavulanate 875-125 mg tablet 1 tab PO BID Qty: 10 0RF Continued prochlorperazine maleate 10 mg tablet 10 mg PO QPM Rx Instructions: TAKES 1 HR PRIOR TO KISQALI & REMIDEX ascorbic acid (vitamin C) [Vitamin C] 500 mg Tablet 0 mg PO QAM Rx Instructions: PT UNSURE OF STRENGTH cholecalciferol (vitamin D3) [Vitamin D3] 50 mcg (2,000 unit) Capsule 0 mcg PO QAM Rx Instructions: PT UNSURE OF STRENGTH Multivitamin W/Coq10 1 tab PO QAM Held anastrozole 1 mg Tablet 1 mg PO HS Hold Instructions: Resume on 07/29/23. hold until discussed with Dr Zepeda in follow up after completed antibiotics/healed from current gallbladder surgery/infection Rx Instructions: TAKE COMPAZINE 1 HR PRIOR TO TAKING THIS MED. Kisqali 600 mg/day (200 mg x 3) tablet 600 mg PO HS Hold Instructions: Resume on 07/29/23. hold until discussed with Dr Zepeda in follow up after completed antibiotics/healed from current gallbladder surgery/infection Rx Instructions: TAKE COMPAZINE 1 HR PRIOR TO TAKING THIS MED. No Action (DME) breast pump Device See Rx Instructions .ROUTE .MEDSUPPLY Qty: 1 0RF Rx Instructions: Pt already has a breast pump Discharge Orders: Discharge Order (Routine); Ordered 07/17/23 Ordered By: Nelida Ulrich Admission Data Admit Date/Time: 07/12/23 16:35 Attending Provider: Jaret Mccall Admit Provider: Michael Rehman Primary Care Provider: Davin Crews Other Providers: Michael Rehman; Shanel Mcnamara; Radha George; Quentin Zepeda Other Interventions: Discharge Summary Assessment (RN) Last Done: 07/17/23 13:12 Supervising Physician Co-Signing Physician Notes The patient was not seen by me. The chart was reviewed. Case discussed with LUCIA Dunn. Agree with assessment and plan. The patient is medically stable and ready for discharge today, July 17 Coding Level of Care Code 50294 INP/OBS DISCH >30 MIN Diagnoses Acute cholecystitis K81.0 Choledocholithiasis K80.50 Malignant neoplasm of breast metastatic to bone C50.919; C79.51 Hypokalemia E87.6
--- NOTE | 2023-07-17 12:56 | Surgery Progress Note ---
Date of Service July 17, 2023 Assessment & Plan (1) Hx laparoscopic cholecystectomy: Plan: Status post robotic cholecystectomy, doing well, labs unremarkable Okay to discharge to home from general surgery standpoint Wound care instructions, activity restrictions, and return precautions given Follow-up in 2 to 3 weeks in general surgery clinic Continue antibiotics per GI Will need follow-up with GI for ERCP to remove stent Timing of resuming chemotherapy per oncology, however would recommend 2 weeks after surgery Admission and Anticipated Discharge Date Admission Date: July 12, 2023 Subjective Postprocedure day 2 ERCP, post operative day #1 robotic cholecystectomy. Doing well, feels much better Physical Exam Constitutional: WD/WN, vitals as above Gastrointestinal (Abdomen): normal bowel sounds, soft, nontender, no hepatosplenomegaly Inspection/Auscultation: + abdominal surgical incision (No infection) Results & Data Vital Signs (Past 12 Hours) Vital Signs Temp Pulse Resp BP BP Pulse Ox O2 Del Method 07/17/23 11:41 36.8 C 80 14 110/70 96 Room Air 07/17/23 08:36 36.7 C 65 14 101/63 94 Room Air Laboratory Results Laboratory Results - last 24 hr 07/17/23 05:50 WBC 4.10 L RBC 4.09 L Hgb 11.0 L Hct 34.4 L MCV 84.1 MCH 26.9 MCHC 32.0 RDW Std Deviation 59.4 H RDW Coeff of Ara 19.8 H Plt Count 183 MPV 9.9 Sodium 137 Potassium 4.1 Chloride 105 Carbon Dioxide 23 Anion Gap 9 BUN 11 Creatinine 0.85 Est Cr Clr Drug Dosing 94.8 Est GFR ( Amer) 103.6 Est GFR (Non-Af Amer) 89.4 BUN/Creatinine Ratio 12.9 Glucose 113 H Calcium 8.8 Total Bilirubin 0.9 Direct Bilirubin 0.2 AST 20 ALT 41 Alkaline Phosphatase 438 H Total Protein 6.7 Albumin 4.1 PG Care Time/CCT Total # of Minutes Spent Total Time Spent with Patient: Total time spent is greater than 50% in coordination of care (as documented) at patient's floor/unit and/or counseling patient: Coding Level of Care Code 52078 Post Operative Follow-Up Diagnoses Hx laparoscopic cholecystectomy Z90.49
== END 2023-07-17 14:38 | disposition home or self-care (01) | DRG 418 ==
LOC: ED 13:20 → EDINP 16:35 → SUATTDRO 16:35 → 2W 20:20

== ENCOUNTER 2023-11-23 10:53 | Inpatient (IN) ==
--- NOTE | 2023-11-23 11:18 | Emergency Department Note ---
Impression & Plan Hypocalcemia, Metastatic disease, Hypokalemia, Distal paresthesia, Weakness ED Provider Note NAME: LUIS MANUEL LI AGE: 32 SEX: F : 1990 ARRIVES VIA: Walk-In INFORMANT: Patient ED PROVIDER(S): Noé Castaneda DO CHIEF COMPLAINT: Slurred speech HPI: Patient is a 32-year-old female with a past medical history of metastatic breast cancer stage IV who received Zometa on Thursday. On Thursday patient started having numbness on bilateral hands and bilateral feet with intermittent cramping. Patient also started having slurred speech about 45 minutes to an hour prior to arrival. Denies any headache or change in vision. No chest pain or shortness of breath. No nausea, vomiting, or diarrhea. No dysuria, urgency, or frequency. No other exacerbating or remitting factors. ADDITIONAL HISTORY OBTAINED: Per HPI Chronic Medical/Social Conditions Affecting Care: Per HPI PAST MEDICAL HISTORY:See Below PAST SURGICAL HISTORY:See Below FAMILY HISTORY:See Below SOCIAL HISTORY:See Below HOME MEDICATIONS:See Below ALLERGIES:See Below VITALS:See Below PHYSICAL EXAMINATION: GENERAL: Sitting up in bed, alert, well appearing, well nourished, no distress, non-toxic EYE EXAM: normal conjunctiva. PERRL and EOM's intact. OROPHARYNX: no exudate, no erythema, lips, buccal mucosa, and tongue normal and mucous membranes are moist NECK: supple, no nuchal rigidity, no adenopathy, non-tender LUNGS: Clear to auscultation. Normal chest wall mechanics HEART: no murmurs, S1 normal and S2 normal ABDOMEN: abdomen soft, non-tender, normo-active bowel sounds, no masses, no rebound or guarding. UPPER EXTREMITIES: upper extremities are grossly normal. LOWER EXTREMITIES: No pitting edema. NEURO EXAM: Normal sensorium, cranial nerves II-XII intact, slightly slurred speech, no weakness of arms, no weakness of legs. No drift. Finger to nose intact. Gross sensation intact. Rapid alternating movements of upper extremities intact MEDICAL DECISION MAKING: Patient is a 32-year-old female who presents ER for the above-stated complaint. Patient was seen and evaluated at bedside and stroke alert was called IV was established blood work was obtained. Labs show mild leukopenia at 3000. INR unremarkable. BMP with hypokalemia 3.1. Calcium significantly low at 0.77. Mild transaminitis. CTAs of the head and neck were negative. I discussed the case with telestroke who evaluated the patient. Recommended no TNK. Do favor that this likely electrolyte in nature. Patient was given IV calcium gluconate in combination with IV potassium. She given IV fluids. Updated at bedside. Discussed with the hospitalist admitted for further evaluation management treatment. Consults/Care Managements Discussions: Per [facility] Triage Nursing notes reviewed. Limited review of prior medical records performed Vital Signs: reviewed and remarkable for no significant abnormalities Differential diagnosis: Differential Diagnosis includes but is not limited to ischemic Stroke, hemorrhagic stroke, bells palsy, mass, neoplasm, migraine headache, seizure, subarachnoid hemorrhage, TIA, and transient global amnesia. ER treatment provided: See below Diagnostics interpreted by me include EKG and cardiac monitoring as listed below: -Cardiac Monitoring: An order was placed for continuous cardiac monitoring. The monitor shows a rate of 92 with sinus rhythm. -ECG: Sinus rhythm rate 78 Normal axis No PVCs QTc 519 -Laboratory studies:Interpreted by me as stated above in MDM and shown below. Imaging studies: Xrays: As interpreted by me: Portable AP upright 1 view of the chest shows no focal infiltrate CTs show: CT angio of the head and neck show no acute pathology Procedures:none Critical Care: None Past Med/Surg History Problem List (Updated 11/23/23 @ 14:31 by Noé Castaneda DO) Weakness (Acute) Distal paresthesia (Acute) Hypocalcemia (Acute) Abdominal pain, RUQ (Acute) Hypokalemia (Acute) Acute cholecystitis (Acute) Choledocholithiasis (Acute) Pneumonia Metastatic disease (Acute) Acute neck pain (Acute) Syncope and collapse (Acute) Obese History of cervical dysplasia Medical History (Updated 11/23/23 @ 14:31 by Noé Castaneda DO) History of cervical dysplasia History of pneumonia (04/2023) 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, ER/Pr+, Her 2 neg History of COVID-19 11/2021- "mild symptoms" Missed Hx Surgical History (Updated 11/12/23 @ 14:37 by Shila Grossman RN) Port-A-Cath in place (11/11/23) Insertion of Access Port with Fluoroscopy Right Internal Jugular Vein(Right) - Kole M. Chambers, DO, FACS Hx of bilateral oophorectomy (10/2023) History of ERCP 07/14/23, [facility] Hx laparoscopic cholecystectomy Robotic Laparoscopic Cholecystectomy: Grade 1 view, MAC#3, ETT 7.0 at [facility] History of dilatation and curettage S/p bilateral myringotomy with tube placement S/P tympanoplasty Right, x2 History of low transverse section x2, with tubal ligation S/P wisdom tooth extraction S/P LEEP of cervix Family History Grandmother (Maternal) Breast cancer Aunt Breast cancer Grandfather Heart murmur Father Family history of reaction to anesthesia nausea/vomiting Other Twins, both liveborn Social History Smoking Status: Former smoker Second Hand Exposure: No; Do You Dip or Chew Tobacco: No; Hx Alcohol Use: Yes Hx Substance Use: Yes (medical marijuana use (advised on policy)) Last Used Substance: Unknown Last Used Substance Other:: 11/06/23 Substance Use Type Other:: medicinal marjiuana Preferred Language: Swedish Communication Ability: Effective Visual Impairment: No Limitations 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: No Beliefs That Will Affect Care: None marital status: marital status details: Austin Li (36) [phone] Current Living Situation: Spouse and Family 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 Feels Safe at Home: Yes Assistive Devices: Glasses Allergies Allergies Allergy/AdvReac Type Severity Reaction Status Date / Time No Known Allergies Allergy Verified 11/23/23 13:16 Home Meds Home Medications Medication Instructions Recorded Confirmed Multivitamin W/Coq10 1 tab PO QAM 07/12/23 11/23/23 ascorbic acid (vitamin C) 500 mg 500 mg PO QAM 07/12/23 11/23/23 tablet (Vitamin C) cholecalciferol (vitamin D3) 50 50 mcg PO QAM 07/12/23 11/23/23 mcg (2,000 unit) capsule (Vitamin D3) prochlorperazine maleate 10 mg 10 mg PO QPM PRN Nausea 07/12/23 11/23/23 tablet fulvestrant 250 mg/5 mL 250 mg IM MONTHLY 10/09/23 11/23/23 intramuscular syringe (Faslodex) oxycodone 5 mg tablet 5 mg PO BID PRN Pain 10/21/23 11/23/23 tramadol 50 mg tablet 50 mg PO BID PRN Pain 10/21/23 11/23/23 Previous Rx's Medication Instructions Recorded breast pump #1 ea 05/08/22 Results & Data (ED) Vital Signs Vital Signs - 24 hr 11/23/23 10:55 11/23/23 12:18 11/23/23 12:19 Temperature 36.3 C L Temperature Source Temporal Artery Scan Pulse Rate 95 H 73 79 Pulse Rate [Finger] Pulse Rate from SpO2 Sensor 74 Respiratory Rate 22 18 Respiratory Effort / Characteristics Non-Labored Spontaneous Respiratory Depth Normal Respiratory Pattern Regular Blood Pressure 108/75 Blood Pressure [Right Arm] Blood Pressure Mean 86 Blood Pressure Mean [Right Arm] Pulse Oximetry 100 100 Oxygen Delivery Method Room Air Sepsis Recent Fever Within 48 Hours No Sepsis New/Unexplained Change in Mental Status N/A Sepsis Action Taken by Nursing No Action Required 11/23/23 12:27 11/23/23 12:36 11/23/23 12:45 Temperature Temperature Source Pulse Rate 76 63 69 Pulse Rate [Finger] Pulse Rate from SpO2 Sensor 76 65 69 Respiratory Rate 24 14 14 Respiratory Effort / Characteristics Respiratory Depth Respiratory Pattern Blood Pressure Blood Pressure [Right Arm] Blood Pressure Mean Blood Pressure Mean [Right Arm] Pulse Oximetry 98 91 98 Oxygen Delivery Method Sepsis Recent Fever Within 48 Hours Sepsis New/Unexplained Change in Mental Status Sepsis Action Taken by Nursing 11/23/23 12:51 11/23/23 13:00 11/23/23 13:06 Temperature Temperature Source Pulse Rate 83 77 Pulse Rate [Finger] 75 Pulse Rate from SpO2 Sensor 81 77 Respiratory Rate 19 18 24 Respiratory Effort / Characteristics Respiratory Depth Respiratory Pattern Blood Pressure Blood Pressure [Right Arm] 115/79 Blood Pressure Mean Blood Pressure Mean [Right Arm] 91 Pulse Oximetry 100 100 97 Oxygen Delivery Method Room Air Sepsis Recent Fever Within 48 Hours Sepsis New/Unexplained Change in Mental Status Sepsis Action Taken by Nursing 11/23/23 13:12 11/23/23 13:27 11/23/23 13:30 Temperature Temperature Source Pulse Rate 74 73 71 Pulse Rate [Finger] Pulse Rate from SpO2 Sensor 76 74 Respiratory Rate 20 22 23 Respiratory Effort / Characteristics Respiratory Depth Respiratory Pattern Blood Pressure Blood Pressure [Right Arm] Blood Pressure Mean Blood Pressure Mean [Right Arm] Pulse Oximetry 100 98 Oxygen Delivery Method Sepsis Recent Fever Within 48 Hours Sepsis New/Unexplained Change in Mental Status Sepsis Action Taken by Nursing Laboratory Data 11/23/23 11:20 11/23/23 11:20 Lab Results 11/23/23 11/23/23 Range/Units 11:20 11:25 WBC 3.15 L (4.8-10.8) K/ul RBC 3.69 L (4.20-5.40) M/uL Hgb 11.2 L (12.0-16.0) g/dl POC Hgb 10.9 L (12.0-16.0) g/dl Hct 33.0 L (37.0-47.0) % POC Hct 32 L (37-47) % MCV 89.4 (80.0-100.0) fL MCH 30.4 (25.0-34.0) pg MCHC 33.9 (32.0-36.0) g/dL RDW Std Deviation 47.9 H (36.4-46.3) fL RDW Coeff of Ara 14.7 H (11.5-14.5) % Plt Count 213 (130-400) K/uL MPV 9.7 (9.4-12.4) fL PT 11.9 (9.0-12.0) Seconds INR 1.1 (0.9-1.1) APTT 37 H (21-31) Seconds PTT Ratio 1.4 POC Sodium 142 (135-144) mmol/L Sodium 140 (136-145) mmol/L POC Potassium 3.1 L (3.3-5.0) mmol/L Potassium 3.1 L (3.5-5.1) mmol/L POC Chloride 105 (101-112) mmol/L Chloride 106 (98-107) mmol/L Carbon Dioxide 24 (21-32) mmol/L POC Total CO2 22 L (24-31) mmol/L Anion Gap 10 (3-11) POC Anion Gap 19.0 (16-25) mmol/L POC BUN < 3 L (7-18) mg/dl BUN 3 L (6-23) mg/dl Creatinine 0.56 L (0.6-1.2) mg/dl POC Creatinine 0.5 L (0.6-1.3) mg/dl Est Cr Clr Drug Dosing 141.1 ml/min Est GFR ( Amer) 141.0 ml/min Est GFR (Non-Af Amer) 121.7 ml/min BUN/Creatinine Ratio 5.4 L (10-20) Glucose 89 (70-99(Fasting)) mg/dl POC Glucose (other) 87 (70-99) mg/dl Calcium 6.6 L (8.6-10.3) mg/dl POC Ioniz Calcium Hank 0.77 L* (1.12-1.32) mmol/l Magnesium 1.9 (1.7-2.4) mg/dl Total Bilirubin 1.2 H (0.2-1.0) mg/dl AST 111 H (13-39) U/L ALT 75 H (7-52) U/L Alkaline Phosphatase 413 H (34-104) U/L Total Protein 7.0 (6.0-8.3) gm/dl Albumin 4.1 (3.4-5.0) gm/dl Globulin 2.9 (2.5-4.0) gm/dl Albumin/Globulin Ratio 1.4 (0.9-2) Administered Medications Discontinued Medications Calcium Gluconate () 1,000 mg in 60 mls @ 240 mls/hr IV Q15M [facility] Stop: 11/23/23 11:59 Last Infusion: 11/23/23 12:35 Dose: Infused Documented By: Admin: 11/23/23 12:11 Dose: 240 mls/hr Documented By: Infusion: 11/23/23 12:11 Dose: Infused Documented By: Admin: 11/23/23 11:56 Dose: 240 mls/hr Documented By: FANI Potassium Chloride (K Luiz / Wtr) 10 meq in 100 mls @ 100 mls/hr IV Q1H MIN Stop: 11/23/23 13:29 Last Admin: 11/23/23 13:15 Dose: 100 mls/hr Documented By: Infusion: 11/23/23 12:56 Dose: Infused Documented By: Admin: 11/23/23 11:56 Dose: 100 mls/hr Documented By: FANI Parenteral Electrolytes (Plasma-Lyte A Ph 7.4) 2,000 mls @ 999 mls/hr IV .Q2H1M ONE Stop: 11/23/23 14:17 Last Admin: 11/23/23 12:46 Dose: 999 mls/hr Documented By: FANI Ioversol (Optiray 320 125ml) 119 ml IV ONCE ONE Stop: 11/23/23 11:24 Last Admin: 11/23/23 11:23 Dose: 119 ml Documented By: LEX Imaging Data Radiologist's Impression: Chest X-Ray 11/23/23 11:06 XR chest 1V portable CLINICAL HISTORY: stroke alert TECHNIQUE: Single frontal radiograph of the chest was obtained. Comparison: Comparison is made to chest radiograph 11/11/2023 FINDINGS: A port catheter is seen. The cardiomediastinal silhouette is normal. The lungs are clear. No evidence of pleural effusion or pneumothorax. IMPRESSION: No acute chest disease. ACT 112: Negative or not required by law. Electronically signed by: Geo Ortega M.D. 11/23/2023 11:51 AM Head CTA 11/23/23 11:14 CT angio head wo/w CLINICAL HISTORY: slurred speech TECHNIQUE: Contiguous axial CT images of the head were acquired from the base of the skull to the vertex without intravenous contrast administration. CT angiography of the head was performed following intravenous administration of iodinated contrast. Coronal and sagittal MIPS were obtained from the axial data set and were submitted for review. Automated dose lowering techniques and/or adjustment according to patient size were utilized for this examination. All measurements were calculated based on NASCET criteria. Comparison: Comparison is made to CT head 04/27/2023 and MRI brain 04/27/2023 FINDINGS: CT head: There is no acute intracranial hemorrhage or evidence of acute territorial infarction. No shift of the midline structures, mass effect, or extra-axial abnormalities are shown. CTA Head: The anterior and posterior cerebral circulations are patent. No hemodynamically significant stenosis, aneurysm, dissection, or arteriovenous malformation is shown. IMPRESSION: 1. No acute intracranial hemorrhage, evidence of acute territorial infarction, or other acute intracranial disease process. 2. No occlusion, hemodynamically significant stenosis, aneurysm, dissection, or arteriovenous malformation in the major intracranial arteries. Assessment of stenosis of the internal carotid arteries is based on NASCET criteria. ACT 112: Negative or not required by law. Electronically signed by: Geo Ortega M.D. 11/23/2023 11:32 AM Neck CTA 11/23/23 11:14 CT ANGIOGRAM OF THE NECK CLINICAL HISTORY: Slurred speech. COMPARISON STUDY: CT of the neck dated 11/05/2023. TECHNIQUE: Following the IV administration of 119 of Optiray 320, CT angiogram of the neck was performed from the aortic arch to the skull base. Images are reviewed in the axial, sagittal, and coronal planes. 3-D MIPS images are created and assessed. IV contrast was administered without complication. All measurements were calculated based on NASCET criteria. A dose lowering technique was utilized adhering to the principles of ALARA. CT DOSE: 1338.77 mGy.cm FINDINGS: Thoracic aorta: Visualized portions of the thoracic aorta are normal in caliber. The aortic arch demonstrates standard 3-vessel anatomy. Right carotid arterial system: The right common carotid artery is widely patent, as are the right internal and external carotid arteries. Left carotid arterial system: The left common carotid artery is widely patent, as are the left internal and external carotid arteries. Vertebral arteries: Widely patent bilaterally and codominant. Subclavian arteries: Widely patent bilaterally. Intracranial vasculature: The visualized intracranial vessels at the skull base are patent. Jugular veins: A right internal jugular central venous infusion port is in place. The jugular veins are patent bilaterally. Brain parenchyma: The visualized brain parenchyma the skull base is within normal limits. Lung apices: Partially visualized upper lobe lung parenchyma appears clear. Soft tissues: The visualized pharyngeal soft tissues are normal in appearance noting angiographic phase technique. The oropharyngeal airway appears widely patent. The thyroid gland is enlarged and heterogeneous. The salivary glands are normal in appearance. There are numerous pathologically enlarged cervical chain lymph nodes. A car sales representative left cervical chain node on image #242 measures 1.6 x 1.1 cm. A left supraclavicular node on image #135 measures 2.0 x 1.5 cm. Skeletal structures: The visualized calvarium at the skull base appears intact. Findings of multifocal osteoblastic metastatic disease has not appreciably changed from the 11/05/2023 CT scan of the neck. There is a mild pathologic impression deformity of C3. Sinuses and mastoids: There is mild mucosal thickening within the sphenoid sinuses. The mastoid air cells are well pneumatized. IMPRESSION: 1. Unremarkable CT angiogram of the neck. 2. Multifocal osteoblastic metastatic disease and pathologic cervical lymphadenopathy is similar to previous. 3. Additional findings as above. ACT 112: Negative or not required by law. Electronically signed by: Ta Laura M.D. 11/23/2023 11:35 AM Discharge Plan Visit Data Chief Complaint: Neuro Symptoms/Deficit Stated Complaint: NUMBNESS, SLURRING SPEECH, POSSIBLE REACTION TO RX ED Provider: Noé Castaneda Discharge Problem: Hypocalcemia, Metastatic disease, Hypokalemia, Distal paresthesia, Weakness Forms Stand Alone Forms: [facility] The car easily beat Prescriptions Prescriptions: No Action oxycodone 5 mg tablet 5 mg PO BID PRN (Reason: Pain) tramadol 50 mg tablet 50 mg PO BID PRN (Reason: Pain) (DME) breast pump Device See Rx Instructions .ROUTE .MEDSUPPLY Qty: 1 0RF Rx Instructions: Pt already has a breast pump prochlorperazine maleate 10 mg tablet 10 mg PO QPM PRN (Reason: Nausea) ascorbic acid (vitamin C) [Vitamin C] 500 mg Tablet 500 mg PO QAM cholecalciferol (vitamin D3) [Vitamin D3] 50 mcg (2,000 unit) Capsule 50 mcg PO QAM Rx Instructions: PT UNSURE OF STRENGTH Multivitamin W/Coq10 1 tab PO QAM fulvestrant [Faslodex] 250 mg/5 mL Syringe 250 mg IM MONTHLY Referrals Referrals: Davin Crews [Primary Care Provider] - Discharge Problem: Metastatic disease Qualifiers: Area of secondary neoplastic involvement: unspecified site Qualified Code(s): C 79.9 - Secondary malignant neoplasm of unspecified site
[2023-11-23] MEDS: OPTIRAY 320 125ml IV ONE (11:23)
[2023-11-23 11:33] LABS: Hemoglobin 11.2 g/dl (12.0-16.0); Mean Corpuscular Hemoglobin 30.4 pg (25.0-34.0); Mean Corpuscular Hgb Conc 33.9 g/dL (32.0-36.0); Mean Corpuscular Volume 89.4 fL (80.0-100.0); Mean Platelet Volume 9.7 fL (9.4-12.4); Platelet Count 213 K/uL (130-400); RDW Coefficient of Variation 14.7 % (11.5-14.5); RDW Standard Deviation 47.9 fL (36.4-46.3); Red Blood Count 3.69 M/uL (4.20-5.40); White Blood Count 3.15 K/ul (4.8-10.8)
--- NOTE | 2023-11-23 11:34 | CT Scan Report ---
CT angio head wo/w CLINICAL HISTORY: slurred speech TECHNIQUE: Contiguous axial CT images of the head were acquired from the base of the skull to the qian sp without intravenous contrast administration. CT angiography of the head was performed following intravenous administration of iodinated contrast. Coronal and sagittal MIPS were obtained from the ax ial data set and were submitted for review. Automated dose lowering techniques and/or adjustment acc ording to patient size were utilized for this examination. All measurements were calculated based on NASCET criteria. Comparison: Comparison is made to CT head 04/27/2023 and MRI brain 04/27/2023 FINDINGS: CT head: There is no acute intracranial hemorrhage or evidence of acute territorial infarction. No sh ift of the midline structures, mass effect, or extra-axial abnormalities are shown. CTA Head: The anterior and posterior cerebral circulations are patent. No hemodynamically significan t stenosis, aneurysm, dissection, or arteriovenous malformation is shown. IMPRESSION: 1. No acute intracranial hemorrhage, evidence of acute territorial infarction, or other acute intrac ranial disease process. 2. No occlusion, hemodynamically significant stenosis, aneurysm, dissection, or arteriovenous malfor mation in the major intracranial arteries. Assessment of stenosis of the internal carotid arteries is based on NASCET criteria. ACT 112: Negative or not required by law. Electronically signed by: Geo Ortega M.D. 11/23/2023 11:32 AM
--- NOTE | 2023-11-23 11:36 | CT Scan Report ---
CT ANGIOGRAM OF THE NECK CLINICAL HISTORY: Slurred speech. COMPARISON STUDY: CT of the neck dated 11/05/2023. TECHNIQUE: Following the IV administration of 119 of Optiray 320, CT angiogram of the neck was perfor med from the aortic arch to the skull base. Images are reviewed in the axial, sagittal, and coronal p lanes. 3-D MIPS images are created and assessed. IV contrast was administered without complication. A ll measurements were calculated based on NASCET criteria. A dose lowering technique was utilized adh ering to the principles of ALARA. CT DOSE: 1338.77 mGy.cm FINDINGS: Thoracic aorta: Visualized portions of the thoracic aorta are normal in caliber. The aortic arch demo nstrates standard 3-vessel anatomy. Right carotid arterial system: The right common carotid artery is widely patent, as are the right int ernal and external carotid arteries. Left carotid arterial system: The left common carotid artery is widely patent, as are the left inclusion internship al and external carotid arteries. Vertebral arteries: Widely patent bilaterally and codominant. Subclavian arteries: Widely patent bilaterally. Intracranial vasculature: The visualized intracranial vessels at the skull base are patent. Jugular veins: A right internal jugular central venous infusion port is in place. The jugular veins a re patent bilaterally. Brain parenchyma: The visualized brain parenchyma the skull base is within normal limits. Lung apices: Partially visualized upper lobe lung parenchyma appears clear. Soft tissues: The visualized pharyngeal soft tissues are normal in appearance noting angiographic pha se technique. The oropharyngeal airway appears widely patent. The thyroid gland is enlarged and heter ogeneous. The salivary glands are normal in appearance. There are numerous pathologically enlarged ce rvical chain lymph nodes. A client relations representative left cervical chain node on image #242 measures 1.6 x 1.1 cm. A left supraclavicular node on image #135 measures 2.0 x 1.5 cm. Skeletal structures: The visualized calvarium at the skull base appears intact. Findings of multifoc al osteoblastic metastatic disease has not appreciably changed from the 11/05/2023 CT scan of the neck . There is a mild pathologic impression deformity of C3. Sinuses and mastoids: There is mild mucosal thickening within the sphenoid sinuses. The mastoid air c ells are well pneumatized. IMPRESSION: 1. Unremarkable CT angiogram of the neck. 2. Multifocal osteoblastic metastatic disease and pathologic cervical lymphadenopathy is similar to p revious. 3. Additional findings as above. ACT 112: Negative or not required by law. Electronically signed by: Ta Laura M.D. 11/23/2023 11:35 AM
[2023-11-23 11:38] LABS: iSTAT Blood Urea Nitrogen < 3 mg/dl (7-18); iSTAT Carbon Dioxide 22 mmol/L (24-31); iSTAT Chloride 105 mmol/L (101-112); iSTAT Creatinine 0.5 mg/dl (0.6-1.3); iSTAT Glucose 87 mg/dl (70-99); iSTAT Hematocrit 32 % (37-47); iSTAT Hemoglobin 10.9 g/dl (12.0-16.0); iSTAT Ionized Calcium 0.77 mmol/l (1.12-1.32); iSTAT Potassium 3.1 mmol/L (3.3-5.0); iSTAT Sodium 142 mmol/L (135-144)
[2023-11-23 11:44] LABS: INR 1.1 (0.9-1.1); Partial Thromboplastin Ratio 1.4; Partial Thromboplastin Time 37 Seconds (21-31); Prothrombin Time 11.9 Seconds (9.0-12.0)
--- NOTE | 2023-11-23 11:54 | XRay Report ---
XR chest 1V portable CLINICAL HISTORY: stroke alert TECHNIQUE: Single frontal radiograph of the chest was obtained. Comparison: Comparison is made to chest radiograph 11/11/2023 FINDINGS: A port catheter is seen. The cardiomediastinal silhouette is normal. The lungs are clear. No evidence of pleural effusion or pneumothorax. IMPRESSION: No acute chest disease. ACT 112: Negative or not required by law. Electronically signed by: Geo Ortega M.D. 11/23/2023 11:51 AM
[2023-11-23] MEDS: CALCIUM GLUCONATE 1,000 MG/60 ML BAG IV SCH (11:56)
[2023-11-23] MEDS: POTASSIUM CHLORIDE / WTR 10 MEQ/100 ML PLCT IV SCH (11:56)
[2023-11-23 11:57] LABS: Albumin Globulin Ratio 1.4 (0.9-2); Albumin Level 4.1 gm/dl (3.4-5.0); BUN Creatinine Ratio 5.4 (10-20); Bilirubin,Total 1.2 mg/dl (0.2-1.0); Calcium 6.6 mg/dl (8.6-10.3); Creatinine Clr Calc Pharmacy 141.1 ml/min; Est GFR (Non-African American) 121.7 ml/min; Globulin 2.9 gm/dl (2.5-4.0); Magnesium 1.9 mg/dl (1.7-2.4); Potassium 3.1 mmol/L (3.5-5.1)
[2023-11-23] MEDS: PLASMA-LYTE A 2,000 ML IV ONE (12:46)
[2023-11-23] MEDS ORDERED: MAGNESIUM HYDROXIDE SUSP 30 ML UDC PO PRN (13:32)
[2023-11-23] MEDS ORDERED: ACETAMINOPHEN 325 MG TAB PO PRN (13:32)
[2023-11-23] MEDS ORDERED: ONDANSETRON INJ 2 MG/ML 2 ML VIAL IV PRN (13:32)
[2023-11-23] MEDS ORDERED: PROCHLORPERAZINE MALEATE 10 MG TAB PO PRN (13:33)
--- NOTE | 2023-11-23 13:35 | History & Physical Report ---
Date of Service November 23, 2023 Assessment & Plan (1) Hypocalcemia: Plan Numbness/tingling of hands and feet Cramping/slurring of speech Received Zometia on Thursday, symptoms started from Thursday. Patient also received Faslodex on Thursday. Patient already improving symptoms with calcium replacement and IVF in the ED. Will supplement calcium based on her symptoms, follow ionized calcium level. Admitting imaging reviewed, will send MRI brain with and without contrast to rule out mets/stroke. Other chronic medical conditions: Continue with/resume home meds as and when able. DVT prophylaxis: heparin subcu. Full code History of Present Illness Chief Complaint: Numbness/tingling/slurred speech Primary Care Provider: Davin Crews 32-year-old lady with PMH of metastatic breast cancer stage IV who received treatment on Thursday, started having numbness and tingling of bilateral hands and feet with intermittent cramping and slurred speech about 45 minutes prior to arrival. She denies any focal weakness/limping/facial droop/headache/change in vision. She denies any fever/increase in her baseline cough/chest pain/sore throat/abdominal pain. She reports having pain and burning and diarrhea after hip radiation on November 10. She reports her pain and burning is improving on its own and also her diarrhea is improving currently. She is agreeable to psyllium fiber to help formed the loose stool. She is passing about 7 loose stools a day. She also reports decreased appetite since last 2 to 3 days. At bedside examination, patient reports her numbness and tingling already improving, patient's confirms that she is not slurring anymore and reports significant improvement in her symptoms. Patient now already is feeling very hungry and would like to eat. Since patient at risks of hypercalcemia given her recent cancer treatment on Thursday and underlying breast cancer, since the symptom has already improved, will not give additional calcium until patient complains of numbness/tingling/slurring his speech/cramping or other symptoms of hypocalcemia. Patient and her has been made aware to report to the nurses any new symptoms so that we can correlate it with the calcium level at that time to further supplement her calcium. Will repeat calcium around 7 PM in the evening. Medications were reviewed with the patient and her at bedside in detail. Plan of care were were discussed with the patient and her at bedside in detail. They voiced understanding and were agreeable to plan of care. Full code Allergies Allergy/AdvReac Type Severity Reaction Status Date / Time No Known Allergies Allergy Verified 11/23/23 13:16 Home Medications Medication Instructions Recorded Confirmed Type breast pump #1 ea 05/08/22 11/20/23 Rx Multivitamin W/Coq10 1 tab PO QAM 07/12/23 11/23/23 History ascorbic acid (vitamin C) 500 mg 500 mg PO QAM 07/12/23 11/23/23 History tablet (Vitamin C) cholecalciferol (vitamin D3) 50 50 mcg PO QAM 07/12/23 11/23/23 History mcg (2,000 unit) capsule (Vitamin D3) prochlorperazine maleate 10 mg 10 mg PO QPM PRN Nausea 07/12/23 11/23/23 History tablet fulvestrant 250 mg/5 mL 250 mg IM MONTHLY 10/09/23 11/23/23 History intramuscular syringe (Faslodex) oxycodone 5 mg tablet 5 mg PO BID PRN Pain 10/21/23 11/23/23 History tramadol 50 mg tablet 50 mg PO BID PRN Pain 10/21/23 11/23/23 History Past Med/Surg History Problem List (Updated 11/23/23 @ 13:32 by Sheron Millan MD) Hypocalcemia Abdominal pain, RUQ (Acute) Hypokalemia Acute cholecystitis (Acute) Choledocholithiasis (Acute) Pneumonia Metastatic disease (Acute) Acute neck pain (Acute) Syncope and collapse (Acute) Obese History of cervical dysplasia Medical History (Updated 11/23/23 @ 13:32 by Sheron Millan MD) History of cervical dysplasia History of pneumonia (04/2023) 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, ER/Pr+, Her 2 neg History of COVID-19 11/2021- "mild symptoms" Missed Hx Surgical History (Updated 11/12/23 @ 14:37 by Shila Grossman RN) Port-A-Cath in place (11/11/23) Insertion of Access Port with Fluoroscopy Right Internal Jugular Vein(Right) - Kole Rubio, DO, FACS Hx of bilateral oophorectomy (10/2023) History of ERCP 2/6/24, [facility] Hx laparoscopic cholecystectomy Robotic Laparoscopic Cholecystectomy: Grade 1 view, MAC#3, ETT 7.0 at [facility] History of dilatation and curettage S/p bilateral myringotomy with tube placement S/P tympanoplasty Right, x2 History of low transverse section x2, with tubal ligation S/P wisdom tooth extraction S/P LEEP of cervix Family History Grandmother (Maternal) Breast cancer Aunt Breast cancer Grandfather Heart murmur Father Family history of reaction to anesthesia nausea/vomiting Other Twins, both liveborn Social History Smoking Status: Former smoker Second Hand Exposure: No; Do You Dip or Chew Tobacco: No; Hx Alcohol Use: Yes Hx Substance Use: Yes (medical marijuana use (advised on policy)) Last Used Substance: Unknown Last Used Substance Other:: 11/06/23 Substance Use Type Other:: medicinal marjiuana Preferred Language: Gu[place]an Communication Ability: Effective Visual Impairment: No Limitations Marketing Consultant Required: No Beliefs That Will Affect Care: None marital status: marital status details: Austin Almendarez (36) [phone] Current Living Situation: Spouse and Family 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 Physical Exam Physical Exam: GENERAL: Alert and oriented x3. NAD, on RA. HEENT: No pallor, no icterus. Pupils equal, round and reactive to light. Oral mucosa moist. NECK: No JVD, no neck masses. HEART: S1 and S2 heard. Regular rate and rhythm. No murmur, no gallop. RESPIRATORY SYSTEM: Normal AP diameter. No accessory muscle use. No wheezing, no crackles. ABDOMEN: Soft, bowel sounds present, nontender, no distention. CENTRAL NERVOUS SYSTEM: No facial droop. Speech is clear. Obeys simple commands. Moves extremities. power 5/5 bue and ble. EXTREMITIES: No edema, no erythema seen. Results & Data Results & Data Vital Signs (Past 12 Hours) Vital Signs Temp Pulse Pulse Resp BP BP Pulse Ox 11/23/23 13:00 75 18 115/79 100 11/23/23 12:51 83 19 100 11/23/23 12:45 69 14 98 11/23/23 12:36 63 14 91 11/23/23 12:27 76 24 98 11/23/23 12:19 79 11/23/23 12:18 73 18 100 11/23/23 10:55 36.3 C L 95 H 22 108/75 100 O2 Del Method 11/23/23 13:00 Room Air 11/23/23 12:51 11/23/23 12:45 11/23/23 12:36 11/23/23 12:27 11/23/23 12:19 11/23/23 12:18 11/23/23 10:55 Room Air
[2023-11-23] MEDS: PSYLLIUM or GUAR GUM FIBER 4GM PACKET PO SCH (16:03)
--- NOTE | 2023-11-23 17:17 | Electrocardiogram Report ---
Test Reason : Blood Pressure : / mmHG Vent. Rate : 078 BPM Atrial Rate : 078 BPM P-R Int : 148 ms QRS Dur : 082 ms QT Int : 456 ms P-R-T Axes : 042 043 040 degrees QTc Int : 519 ms Normal sinus rhythm Prolonged QT Abnormal ECG When compared with ECG of 07-JUL-2023 13:29, Nonspecific T wave abnormality now evident in Anterior leads QT has lengthened Confirmed by Hesham Johnston ([id number]) on 11/23/2023 5:17:05 PM Referred By: Davin Crews Confirmed By:Hesham Johnston
[2023-11-23] MEDS ORDERED: LORazepam 0.5 MG TAB PO PRN (19:53)
[2023-11-23 19:59] LABS: BUN Creatinine Ratio 4.3 (10-20); Calcium 6.3 mg/dl (8.6-10.3); Creatinine Clr Calc Pharmacy 168.1 ml/min; Est GFR (African American) 149.4 ml/min; Est GFR (Non-African American) 128.9 ml/min
[2023-11-23] MEDS: LORazepam 0.5 MG in SYRINGE 0.25 ML IV STA (20:37)
[2023-11-23] MEDS: GADOBUTROL 65ML VIAL IV ONE (21:15)
--- NOTE | 2023-11-23 22:13 | Magnetic Resonance Report ---
MR brain wo/w con CLINICAL HISTORY: ro mets ro stroke TECHNIQUE: Multiplanar and multisequence MR images of the brain were obtained prior to and following administration of gadolinium contrast. Comparison: Comparison is made to CTA head and neck 11/23/2023 FINDINGS: No abnormal restricted diffusion is identified. The white matter is unremarkable. The ventricular sys tem is normal in appearance. No mass or abnormal enhancement is seen. There is no mass effect or midl ine shift. There is no evidence of acute intraparenchymal hemorrhage. No extra axial fluid collection s are seen. The corpus callosum, pituitary gland, and cerebellar tonsils appear grossly unremarkable. Flow voids of the major intracranial arterial vessels are identified. The imaged portions of the para nasal sinuses, mastoid air cells, and orbits are unremarkable. IMPRESSION: No acute abnormality and in particular no evidence of acute infarct or metastatic disease. ACT 112: Negative or not required by law. Electronically signed by: Geo Ortega M.D. 11/23/2023 10:11 PM
[2023-11-23] MEDS: oxyCODONE HCL IR 5 MG TAB (IMMEDIATE RELEASE) PO PRN (22:25)
[2023-11-23] MEDS: HEPARIN SOD 5,000 UNIT/0.5 ML VIAL SQ SCH (22:25)
[2023-11-23] MEDS: diphenhydrAMINE Capsule 25 MG CAP PO PRN (23:54)
[2023-11-24 07:12] LABS: Hematocrit (blood only) 28.6 % (37.0-47.0); Hemoglobin 9.6 g/dl (12.0-16.0); Mean Corpuscular Hemoglobin 30.3 pg (25.0-34.0); Mean Corpuscular Hgb Conc 33.6 g/dL (32.0-36.0); Mean Corpuscular Volume 90.2 fL (80.0-100.0); Mean Platelet Volume 9.5 fL (9.4-12.4); Platelet Count 186 K/uL (130-400); RDW Coefficient of Variation 14.9 % (11.5-14.5); RDW Standard Deviation 49.6 fL (36.4-46.3); Red Blood Count 3.17 M/uL (4.20-5.40)
[2023-11-24 07:27] LABS: Anion Gap 6 (3-11); BUN Creatinine Ratio 6.5 (10-20); Blood Urea Nitrogen 3 mg/dl (6-23); Carbon Dioxide 26 mmol/L (21-32); Chloride 110 mmol/L (98-107); Creatinine Clr Calc Pharmacy 171.1 ml/min; Est GFR (African American) > 150.0 ml/min; Est GFR (Non-African American) 129.8 ml/min; Glucose 84 mg/dl (70-99(Fasting)); Phosphorus 2.8 mg/dl (2.5-4.9); Potassium 3.2 mmol/L (3.5-5.1); Sodium 142 mmol/L (136-145)
[2023-11-24] MEDS: CALCIUM CARBONATE 500 MG CHEWABLE TAB PO SCH (08:38)
[2023-11-24] MEDS: POTASSIUM CHLORIDE CRTAB 20 MEQ TABCR PO ONE (08:38)
[2023-11-24] MEDS: CALCIUM GLUCONATE 1,000 MG/60 ML BAG IV SCH (08:39)
[2023-11-24] MEDS: MULTIVITAMIN TAB PO SCH (08:41)
[2023-11-24] MEDS: CHOLECALCIFEROL 25 MCG (1000 UNITS) TAB PO SCH (08:41)
--- NOTE | 2023-11-24 12:52 | Electrocardiogram Report ---
Test Reason : Blood Pressure : / mmHG Vent. Rate : 085 BPM Atrial Rate : 085 BPM P-R Int : 166 ms QRS Dur : 080 ms QT Int : 392 ms P-R-T Axes : 033 017 009 degrees QTc Int : 466 ms Normal sinus rhythm Nonspecific T wave abnormality Prolonged QT Abnormal ECG When compared with ECG of 23-NOV-2023 11:27, Inverted T waves have replaced nonspecific T wave abnormality in Inferior leads Confirmed by Hesham Johnston ([id number]) on 11/24/2023 12:51:58 PM Referred By: Davin Crews Confirmed By:Hesham Johnston
--- NOTE | 2023-11-24 14:04 | Hospitalist Progress Note ---
Date of Service November 24, 2023 Assessment & Plan (1) Hypocalcemia: Plan Symptomatic hypocalcemia Likely due to Zometa which patient received on 11/20/2023 as per record Presented with strokelike symptoms --MRI bRAIN:No acute abnormality and in particular no evidence of acute infarct or metastatic disease. --Head CTA: No acute intracranial hemorrhage, evidence of acute territorial infarction, or other acute intracranial disease process. No occlusion, hemodynamically significant stenosis, aneurysm, dissection, or arteriovenous malformation in the major intracranial arteries. --Neck CTA: Unremarkable CT angiogram of the neck. Multifocal osteoblastic metastatic disease and pathologic cervical lymphadenopathy is similar to previous. -- Calcium 6.0, ionized calcium 0.74 today --QT prolongation on EKG likely due to hypocalcemia -- Normal albumin, phosphorus, magnesium levels Continue Calcium supplements Clinically improved Will recheck calcium, ionized calcium levels tomorrow Will also obtain vitamin D, PTH levels Hypokalemia Likely secondary to ongoing diarrhea Replete electrolytes as needed Diarrhea Reports ongoing diarrhea since radiation therapy Check stool studies to rule out infection Received IV fluids Monitor volume status Metastatic adenocarcinoma of breast with bone metastasis ER and DE positive Currently on Ribociclib Received Faslodex on Thursday. Follows with oncology and radiation oncology Currently undergoing palliative radiation/Hormonal therapy Was to schedule for bilateral oophorectomy by Dr. Couch DVT Px: Heparin SQ Code Status Full code Admission and Anticipated Discharge Date Admission Date: November 23, 2023 Subjective Patient is seen and examined at bedside Numbness, tingling of extremities much improved Ongoing diarrhea since radiation treatment per patient Denies any chest pain, dyspnea, nausea, vomiting, abdominal pain today No other complaints Review of Systems Review of Systems: All systems reviewed & are unremarkable except as noted in Subjective Physical Exam Physical Exam: Physical Exam: Vitals signs as noted above General Appearance:Moderately built and nourished, no apparent distress Head: normocephalic, Atraumatic Eyes: normal inspection, EOMI Neck: supple, Trachea midline Respiratory/Chest: Normal breath sounds, CTA, No accessory muscle use Cardiovascular: S1, S2, No murmur Abdomen/GI:Soft, Non tender, Bowel sounds present Extremities/Musculoskeletal:normal inspection, no edema Neurologic/Psych:AAOX3, grossly no focal neurological deficits Skin: normal color, warm Results & Data Results & Data Vital Signs (Past 12 Hours) Vital Signs Temp Pulse Pulse Resp BP Pulse Ox O2 Del Method 11/24/23 10:49 36.7 C 82 17 101/62 96 Room Air 11/24/23 08:00 87 11/24/23 07:21 36.8 C 83 17 107/63 98 Room Air 11/24/23 02:55 37.1 C 81 16 100/64 95 Room Air Laboratory Results Short CBC 11/24/23 Range/Units 06:33 WBC 3.00 L (4.8-10.8) K/ul Hgb 9.6 L (12.0-16.0) g/dl Hct 28.6 L (37.0-47.0) % Plt Count 186 (130-400) K/uL BMP 11/23/23 11/24/23 19:28 06:33 Sodium 140 142 Potassium 3.0 L 3.2 L Chloride 109 H 110 H Carbon Dioxide 25 26 BUN 2 L 3 L Creatinine 0.47 L 0.46 L Glucose 98 84 Calcium 6.3 L 6.0 L
[2023-11-24 14:45] LABS: Cdiff Toxin B Gene (2yr or >) Positive Cdiff Gene (Neg)
[2023-11-24 15:24] LABS: Adenovirus F 40/41 PCR Not Detected (NotDetected); Astrovirus PCR Not Detected (NotDetected); Campylobacter PCR Not Detected (NotDetected); Cryptosporidium PCR Not Detected (NotDetected); Cyclospora cayetanensis PCR Not Detected (NotDetected); Entamoeba histolytica PCR Not Detected (NotDetected); Enteroaggregative E.coli(EAEC) Not Detected (NotDetected); Enteropathogenic E.coli (EPEC) Not Detected (NotDetected); Enterotoxigenic E.coli (ETEC) Not Detected (NotDetected); Giardia lamblia PCR Not Detected (NotDetected); Norovirus GI/GII PCR Not Detected (NotDetected); Plesiomonas shigelloides PCR Not Detected (NotDetected); Rotavirus A PCR Not Detected (NotDetected); Sapovirus PCR Not Detected (NotDetected); Shiga-like Toxin E.coli (STEC) Not Detected (NotDetected); Shigella/Enteroinvasive E.coli Not Detected (NotDetected); Vibrio cholerae PCR Not Detected (NotDetected); Vibrio species PCR Not Detected (NotDetected); Yersinia enterocolitica PCR Not Detected (NotDetected)
[2023-11-24 15:43] LABS: Cdiff Antigen Positive; Cdiff Toxin A+B Negative Cdiff Toxin (Negative)
[2023-11-24 15:45] LABS: Salmonella PCR DETECTED (NotDetected)
[2023-11-24] MEDS: ALUMINUM/MAGNESIUM/SIMETH (MAALOX MAX) 30 ML UDC PO PRN (15:51)
--- NOTE | 2023-11-24 15:55 | Communication Note ---
Date of Service: November 24, 2023 Stool PCR positive for Salmonella Placed on isolation precautions Started on IV Rocephin Avoid QTc prolonging meds for now given hypocalcemia/Prolonged QTc
[2023-11-24] MEDS ORDERED: cefTRIAXone SODIUM 1,000 MG/50 ML BAG IV SCH (16:00)
[2023-11-24] MEDS: NSS + 20MEQ KCL 20 MEQ/1,000 ML BAG IV ONE (17:05)
[2023-11-24] MEDS: cefTRIAXone SODIUM 2,000 MG/50 ML BAG IV SCH (17:06)
[2023-11-24] MEDS: traMADol HCL 50 MG TABLET PO PRN (17:17)
[2023-11-24 21:26] LABS: BUN Creatinine Ratio 9.1 (10-20); Calcium 7.2 mg/dl (8.6-10.3); Creatinine Clr Calc Pharmacy 143.1 ml/min; Est GFR (African American) 141.8 ml/min; Est GFR (Non-African American) 122.4 ml/min; Potassium 3.6 mmol/L (3.5-5.1)
[2023-11-25 07:18] LABS: Hematocrit (blood only) 29.4 % (37.0-47.0); Hemoglobin 9.5 g/dl (12.0-16.0); Mean Corpuscular Hemoglobin 30.1 pg (25.0-34.0); Mean Corpuscular Hgb Conc 32.3 g/dL (32.0-36.0); Mean Platelet Volume 9.7 fL (9.4-12.4); Platelet Count 188 K/uL (130-400); RDW Standard Deviation 50.8 fL (36.4-46.3); Red Blood Count 3.16 M/uL (4.20-5.40); White Blood Count 2.93 K/ul (4.8-10.8)
[2023-11-25 07:57] LABS: Alanine Aminotransferase 69 U/L (7-52); Albumin Level 3.3 gm/dl (3.4-5.0); Alkaline Phosphatase 393 U/L (34-104); Anion Gap 6 (3-11); Aspartate Aminotransferase 106 U/L (13-39); Bilirubin Direct 0.2 mg/dl (0-0.2); Bilirubin,Total 0.6 mg/dl (0.2-1.0); Blood Urea Nitrogen 6 mg/dl (6-23); Calcium 7.2 mg/dl (8.6-10.3); Carbon Dioxide 24 mmol/L (21-32); Chloride 111 mmol/L (98-107); Creatinine Clr Calc Pharmacy 188.3 ml/min; Est GFR (African American) > 150.0 ml/min; Est GFR (Non-African American) 132.7 ml/min; Glucose 77 mg/dl (70-99(Fasting)); Potassium 3.9 mmol/L (3.5-5.1); Sodium 141 mmol/L (136-145); Total Protein 5.9 gm/dl (6.0-8.3)
[2023-11-25] MEDS: HEPARIN 100 UNIT/ML 5ML FLUSH FLUSH PRN (08:57)
[2023-11-25 09:45] LABS: Prealbumin 11.4 mg/dl (20-40)
[2023-11-25] MEDS: ERGOCALCIFEROL 1250 MCG (50,000 UNITS) CAP PO SCH (10:25)
[2023-11-25] MEDS: CALCIUM GLUCONATE 1,000 MG/60 ML BAG IV STA (10:25)
[2023-11-25] MEDS: AZITHROMYCIN 250 MG TAB PO SCH (10:41)
[2023-11-25] MEDS: ACETAMINOPHEN 325 MG TAB PO STA (11:36)
--- NOTE | 2023-11-25 12:06 | Discharge Summary ---
Discharge Summary Date of Service November 25, 2023 Principal Dx & Hospital Course #1 = Principal Diagnosis (1) Hypocalcemia: Plan Ms. Almendarez is a 32 year old woman with history of metastatic adenocarcinoma of breast with bone mets who is admitted for eval of stroke like symptoms and found to have hypocalcemia. Ionized Ca on admission was 0.7, improved to 1.02 today. Patient without further symptoms. Patient also with watery, nonbloody diarrhea. Notes to be salmonella positive. Patient discharged with weekly vit D, calcium BID. QTC initially prolonged iso multiple electrolyte disturbances, improved to 459 this am. Plan to DC with short course of azithromycin 500mg daily for salmonella gastroenteritis given her immunocompromised status. Plan for labs in 3-4 days. On day of discharge, patient reports doing much better, denies chest pain, palpitations, further weakness/sensory deficits. #Symptomatic hypocalcemia #Stroke like symptoms POA, resolved Likely due to Zometa which patient received on 11/20/2023 as per record Presented with strokelike symptoms --MRI braIN:No acute abnormality and in particular no evidence of acute infarct or metastatic disease. --Head CTA: No acute intracranial hemorrhage, evidence of acute territorial infarction, or other acute intracranial disease process. No occlusion, hemodynamically significant stenosis, aneurysm, dissection, or arteriovenous malformation in the major intracranial arteries. --Neck CTA: Unremarkable CT angiogram of the neck. Multifocal osteoblastic metastatic disease and pathologic cervical lymphadenopathy is similar to previous. -- Calcium 6.0, ionized calcium 0.74 today --QT prolongation on EKG likely due to hypocalcemia -- Normal albumin, phosphorus, magnesium levels Continue Calcium supplements, 500mg BID Transition to high dose vit D with plans for repeat level in 4-6 weeks CMP in 3-4 days to follow calcium level Clinically improved #Prolong QTC pratimaley 2/2 electrolyte abnormalities, resolved #Hypokalemia resolved Likely secondary to ongoing diarrhea Replete electrolytes as needed #Salmonella Gastroenteritis #Immunocompromised Reports ongoing diarrhea since radiation therapy Given ongoing issues and immunocompromised status, continue course azithromycin x 6 days(7day abx course) labs in 3-4 days monitor electrolytes #Metastatic adenocarcinoma of breast with bone metastasis ER and DC positive Currently on Ribociclib Received Faslodex on Thursday. Follows with oncology and radiation oncology Currently undergoing palliative radiation/Hormonal therapy Was to schedule for bilateral oophorectomy by Dr. Couch Notes For Next Care Provider Repeat CMP in 3-4 days monitor electrolytes Follow calcium level Vit D mildly low, repeat in 4-6 weeks Medication Changes From Visit Azithromycin 500mg daily x 5 days (7 days total abx therapy) Calcium carbonate 500mg bid Vit D 1250mg q thursday for 4-6 weeks with plans for follow up levels in 4-6 weeks Admission HPI Per Admitting Provider 32-year-old lady with PMH of metastatic breast cancer stage IV who received treatment on Thursday, started having numbness and tingling of bilateral hands and feet with intermittent cramping and slurred speech about 45 minutes prior to arr ival. She denies any focal weakness/limping/facial droop/headache/change in vision. She denies any fever/increase in her baseline cough/chest pain/sore throat/abdominal pain. She reports having pain and burning and diarrhea after hip radiation on November 10. She reports her pain and burning is improving on its own and also her diarrhea is improving currently. She is agreeable to psyllium fiber to help formed the loose stool. She is passing about 7 loose stools a day. She also reports decreased appetite since last 2 to 3 days. At bedside examination, patient reports her numbness and tingling already improving, patient's confirms that she is not slurring anymore and reports significant improvement in her symptoms. Patient now already is feeling very hungry and would like to eat. Since patient at risks of hypercalcemia given her recent cancer treatment on Thursday and underlying breast cancer, since the symptom has already improved, will not give additional calcium until patient complains of numbness/tingling/slurring his speech/cramping or other symptoms of hypocalcemia. Patient and her has been made aware to report to the nurses any new symptoms so that we can correlate it with the calcium level at that time to further supplement her calcium. Will repeat calcium around 7 PM in the evening. Medications were reviewed with the patient and her at bedside in detail. Plan of care were were discussed with the patient and her at bedside in detail. They voiced understanding and were agreeable to plan of care. Full code Admission Exam Per Admitting Provider GENERAL: Alert and oriented x3. NAD, on RA. HEENT: No pallor, no icterus. Pupils equal, round and reactive to light. Oral mucosa moist. NECK: No JVD, no neck masses. HEART: S1 and S2 heard. Regular rate and rhythm. No murmur, no gallop. RESPIRATORY SYSTEM: Normal AP diameter. No accessory muscle use. No wheezing, no crackles. ABDOMEN: Soft, bowel sounds present, nontender, no distention. CENTRAL NERVOUS SYSTEM: No facial droop. Speech is clear. Obeys simple commands. Moves extremities. power 5/5 bue and ble. EXTREMITIES: No edema, no erythema seen. Discharge Exam Constitutional WD/WN, vitals as above Respiratory normal respiratory effort, lungs clear to auscultation Gastrointestinal (Abdomen) normal bowel sounds, soft, nontender, no hepatosplenomegaly Musculoskeletal no cyanosis or clubbing, extremities motor strength 5/5 Updated Medication List Medication Instructions Recorded Confirmed Type breast pump #1 ea 05/08/22 11/20/23 Rx Multivitamin W/Coq10 1 tab PO QAM 07/12/23 11/23/23 History ascorbic acid (vitamin C) 500 mg 500 mg PO QAM 07/12/23 11/23/23 History tablet (Vitamin C) prochlorperazine maleate 10 mg 10 mg PO QPM PRN Nausea 07/12/23 11/23/23 History tablet fulvestrant 250 mg/5 mL 250 mg IM MONTHLY 10/09/23 11/23/23 History intramuscular syringe (Faslodex) oxycodone 5 mg tablet 5 mg PO BID PRN Pain 10/21/23 11/23/23 History tramadol 50 mg tablet 50 mg PO BID PRN Pain 10/21/23 11/23/23 History azithromycin 500 mg tablet 500 mg PO DAILY 5 days #5 tabs 11/25/23 Rx calcium carbonate 500 mg PO BID #14 tabs 11/25/23 Rx ergocalciferol (vitamin D2) 1,250 1,250 mcg PO Q7D@0900 #12 caps 11/25/23 Rx mcg (50,000 unit) capsule Hospital Stay Data Consultations 11/23/23 12:17 ED Decision to Admit Stat Diagnostic Imagining Performed 11/23/23 11:14 CT angio head wo/w Stat CT angio neck with con Stat 11/23/23 13:29 MRI Brain [MR brain wo/w con] Routine Pending Results Patient Have Any Pending Studies at Discharge: No Discharge Instructions Given to Patient (Per Discharging Provider) You were admitted for concerns of numbness and weakness, you were noted to have very low calcium levels. This was suspected to be due to Zometa infusion, which can lower Calcium levels. Please follow up with your primary provider for labs in 1 week, to include a calcium level. You will start TUMS 1 tablet two times a day for 7 days with plans for labs to discuss further calcium supplementation. Your vitamin D transitioned from a low dose daily, to a once a week tablet 1250mcg every Thursday in the morning. Please follow up in 6-8 weeks for a vitamin D level with your provider. You were noted to have diarrhea which was positive for salmonella. Typically this is self-limited, however, given your recent chemotherapy, we will completed 7 days of antibiotics. Please take Azithromycin starting tomorrow 11/25 in the 1 time in the morning. Continue daily until the tablets are complete. Total Time Total Time Spent Total Time Spent (In Minutes): 45
[2023-11-25] MEDS ORDERED: CALCIUM CARBONATE 500 MG CHEWABLE TAB PO SCH (14:00)
--- NOTE | 2023-11-25 16:13 | Electrocardiogram Report ---
Test Reason : Blood Pressure : / mmHG Vent. Rate : 080 BPM Atrial Rate : 080 BPM P-R Int : 170 ms QRS Dur : 076 ms QT Int : 398 ms P-R-T Axes : 053 033 020 degrees QTc Int : 459 ms Normal sinus rhythm Normal ECG When compared with ECG of 24-NOV-2023 08:34, Nonspecific T wave abnormality no longer evident in Anterior leads Confirmed by Hesham Johnston ([id number]) on 11/25/2023 4:12:39 PM Referred By: Davin Crews Confirmed By:Hesham Johnston
== END 2023-11-25 12:15 | disposition home or self-care (01) | DRG 641 ==
LOC: ED 10:53 → SUATTDRO 13:32 → EDINP 13:32 → 2S 21:46

== ENCOUNTER 2024-06-23 16:34 | Inpatient (IN) ==
--- NOTE | 2024-06-23 17:42 | XRay Report ---
INDICATION: Cough. TECHNIQUE: Frontal radiograph of the chest. COMPARISON: Radiograph from 03/22/2024. FINDINGS: Mild cardiomegaly. Right-sided chest port catheter tip in the superior vena cava. Pulmonary vasculature appear within normal limits. Lobe infiltrate. No pleural effusion or pneumothorax. No acute osseous abnormality evident. IMPRESSION: Findings concerning for right lower lobe pneumonia. Electronically signed by Daniele Ybarra 06-23-2024 5:42 PM
[2024-06-23 17:53] LABS: Hematocrit (blood only) 43.6 % (37.0-47.0); Hemoglobin 14.4 g/dl (12.0-16.0); Mean Corpuscular Hemoglobin 28.6 pg (25.0-34.0); Mean Corpuscular Volume 86.5 fL (80.0-100.0); Mean Platelet Volume 10.5 fL (9.4-12.4); Platelet Count 197 K/uL (130-400); RDW Coefficient of Variation 16.1 % (11.5-14.5); Red Blood Count 5.04 M/uL (4.20-5.40); White Blood Count 14.22 K/ul (4.8-10.8)
[2024-06-23] MEDS: SODIUM CHLORIDE 0.9% 2,000 ML IV ONE (17:59)
[2024-06-23 18:03] LABS: Albumin Globulin Ratio 1.8 (0.9-2); Albumin Level 4.2 gm/dl (3.4-5.0); BUN Creatinine Ratio 28.1 (10-20); Bilirubin,Total 1.4 mg/dl (0.2-1.0); Calcium 8.9 mg/dl (8.6-10.3); Creatinine Clr Calc Pharmacy 122.4 ml/min; Globulin 2.4 gm/dl (2.5-4.0); Potassium 4.2 mmol/L (3.5-5.1); Total Protein 6.6 gm/dl (6.0-8.3)
--- NOTE | 2024-06-23 18:13 | Emergency Department Note ---
Impression & Plan Vomiting and diarrhea, Pneumonia, Hypomagnesemia, Leukocytosis ED Provider Note HISTORY OF PRESENT ILLNESS: Patient is a 33-year-old female presenting with nausea, vomiting and diarrhea. Patient reports that she has stage IV metastatic breast cancer. She last received chemotherapy on 05/27/2024. She received a dose of Neulasta just prior to this dose. She was supposed to start oral chemo again today, but woke up at around 5:30 AM has had more than 10 episodes of watery diarrhea and multiple episodes of vomiting. Denies any abdominal pain. She states that she typically eats gummy and has had similar symptoms with these in the past. She denies any fevers. Denies any chest pain or shortness of breath. Denies any dysuria or hematuria. Patient denies any recent antibiotic use. ROS: as above PHYSICAL EXAM: Constitutional: Patient appears in no acute distress. HENT: Head: Normocephalic and atraumatic. Eyes: EOMI, PERRL Mouth/Throat: Mucous membranes moist. Neck: Trachea midline. Neck supple. Cardiovascular: Tachycardic with regular rhythm. No murmurs, rubs or gallops. Intact distal pulses. Pulmonary/Chest: No respiratory distress. Breath sounds clear and equal bilaterally. No wheezes or rales. Abdominal: Abdomen soft, no tenderness, rebound or guarding. Musculoskeletal: No edema, tenderness or deformity noted. Skin: Warm and dry. No rash, erythema, pallor or cyanosis Psychiatric: Appropriate mood and affect for situation. Neurological: Alert and keenly responsive. CN II-XII grossly intact, moving all extremities equally and fully. MDM: - Vitals signs showed tachycardia. - History obtained via patient. History as above. - Chronic conditions affecting care: Metastatic breast cancer - Differential diagnoses include, but are not limited to: Viral syndrome; infectious diarrhea; electrolyte abnormality; dehydration; bowel obstruction - Order placed for continuous cardiac monitoring. At this time, monitor showed rate of 99 bpm with normal sinus rhythm, per my interpretation. - External medical records reviewed. Hematology/oncology note dated 03/23/2024 was reviewed. Patient was seen in clinic for her metastatic breast cancer. - EKG interpreted by myself showed normal sinus rhythm. Rate 99 bpm. QT 364. No acute ischemic changes. - Laboratory workup interpreted by myself showed leukocytosis (WBC 14.22); normal PT/INR; normal lactate; hypomagnesemia (Mg 1.6); elevated total bilirubin (1.4); normal AST/ALT; normal troponin; normal procalcitonin - Blood cultures obtained - Viral respiratory panel negative - Stoool studies ordered - Considered CT abdomen/pelvis, but patient has no reproducible abdominal pain on assessment. - CXR showed concern for right lower lobe pneumonia, per my interpretation. - Patient given 1g IV magnesium for electrolyte replacement. - Given 2g IV NS. Patient's sepsis fluid volume calculation based on ideal body weight is 1636.20 mL - Given 2g IV cefepime for antibiotic coverage. - UA ordered but not yet obtained - Discussion was had with field nurse case manager about patient's case and need for admission - Hospitalist, Dr. Kerr, consulted for admission - [facility] for further evaluation and management. ASSESSMENT AND PLAN: Diagnosis: Vomiting and diarrhea; pneumonia; leukocytosis; hypomagnesemia Plan: Admit Past Med/Surg History Problem List (Updated 06/23/24 @ 21:00 by Linette Norwood MD) Leukocytosis (Acute) Hypomagnesemia (Acute) Pneumonia (Acute) Vomiting and diarrhea (Acute) Abdominal pain, RUQ (Acute) Acute cholecystitis (Acute) Choledocholithiasis (Acute) Pneumonia Metastatic disease (Acute) Acute neck pain (Acute) Syncope and collapse (Acute) Obese History of cervical dysplasia Medical History Weakness Distal paresthesia Hypocalcemia Hypokalemia History of cervical dysplasia History of pneumonia (04/2023) 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, ER/Pr+, Her 2 neg History of COVID-19 11/2021- "mild symptoms" Missed Hx Surgical History Port-A-Cath in place (11/11/23) Insertion of Access Port with Fluoroscopy Right Internal Jugular Vein(Right) - Kole Rubio, , FACS Hx of bilateral oophorectomy (10/2023) History of ERCP 07/14/23, [facility] Hx laparoscopic cholecystectomy Robotic Laparoscopic Cholecystectomy: Grade 1 view, MAC#3, ETT 7.0 at [facility] History of dilatation and curettage S/p bilateral myringotomy with tube placement S/P tympanoplasty Right, x2 History of low transverse section x2, with tubal ligation S/P wisdom tooth extraction S/P LEEP of cervix Family History Grandmother (Maternal) Breast cancer Aunt Breast cancer Grandfather Heart murmur Father Family history of reaction to anesthesia nausea/vomiting Other Twins, both liveborn Social History Smoking Status: Never smoker Second Hand Exposure: No; Do You Dip or Chew Tobacco: No; Hx Alcohol Use: Yes Hx Substance Use: Yes Last Used Substance: Days (ago) Last Used Substance Other:: 11/06/23 Substance Use Type Other:: THC Preferred Language: Cambodian Communication Ability: Effective Visual Impairment: No Limitations Cpr Ambulance Driver Required: No Beliefs That Will Affect Care: None marital status: marital status details: Austin Almendarez (36) [phone] Current Living Situation: Spouse Current Living Situation Comment: with 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 Feels Safe at Home: Yes Assistive Devices: None Allergies Allergies Allergy/AdvReac Type Severity Reaction Status Date / Time No Known Drug Allergies Allergy Verified 05/09/24 10:18 Home Meds Home Medications Medication Instructions Recorded Confirmed Multivitamin W/Coq10 1 tab PO QAM 07/12/23 06/23/24 ascorbic acid (vitamin C) 500 mg 500 mg PO QAM 07/12/23 06/23/24 tablet (Vitamin C) prochlorperazine maleate 10 mg 10 mg PO QPM PRN Nausea 07/12/23 06/23/24 tablet fulvestrant 250 mg/5 mL 250 mg IM MONTHLY 10/09/23 06/23/24 intramuscular syringe (Faslodex) oxycodone 5 mg tablet 5 mg PO BID PRN Pain 10/21/23 06/23/24 tramadol 50 mg tablet 50 mg PO BID PRN Pain 10/21/23 06/23/24 diphenoxylate-atropine 2.5 1 tab PO Q6H PRN Diarrhea 03/04/24 06/23/24 mg-0.025 mg tablet (Lomotil) cholecalciferol (vitamin D3) 25 25 mcg PO DAILY 06/23/24 06/23/24 mcg (1,000 unit) tablet (Vitamin D3) Previous Rx's Medication Instructions Recorded breast pump #1 ea 05/08/22 calcium carbonate 500 mg PO BID #14 tabs 11/25/23 ondansetron 4 mg disintegrating 4 mg PO Q4H PRN nausea and 02/08/24 tablet vomiting #14 tabs Results & Data (ED) Vital Signs Vital Signs - 24 hr 06/23/24 17:00 06/23/24 18:02 06/23/24 18:05 Temperature 36.8 C Temperature Source Temporal Artery Scan Pulse Rate 120 H 105 H Pulse Rate [Apical] Pulse Rate [Right Finger] 102 H Respiratory Rate 18 16 Respiratory Effort / Characteristics Non-Labored Non-Labored Spontaneous Respiratory Depth Normal Normal Respiratory Pattern Regular Blood Pressure 103/71 Blood Pressure [Right Arm] 118/87 Blood Pressure Mean 81 Blood Pressure Mean [Right Arm] 97 Pulse Oximetry 98 100 Oxygen Delivery Method Room Air Room Air Sepsis Recent Fever Within 48 Hours No Sepsis New/Unexplained Change in Mental Status No Sepsis Action Taken by Nursing No Action Required 06/23/24 18:07 06/23/24 19:00 06/23/24 20:26 Temperature Temperature Source Pulse Rate Pulse Rate [Apical] 94 H 99 H Pulse Rate [Right Finger] Respiratory Rate 18 24 Respiratory Effort / Characteristics Non-Labored Spontaneous Non-Labored Spontaneous Respiratory Depth Normal Normal Respiratory Pattern Regular Regular Blood Pressure Blood Pressure [Right Arm] 120/66 99/56 L Blood Pressure Mean Blood Pressure Mean [Right Arm] 84 70 Pulse Oximetry 99 Oxygen Delivery Method Room Air Room Air Sepsis Recent Fever Within 48 Hours Sepsis New/Unexplained Change in Mental Status Sepsis Action Taken by Nursing Laboratory Data 06/23/24 17:24 06/23/24 17:24 Lab Results 06/23/24 06/23/24 Range/Units 17:24 18:10 WBC 14.22 H (4.8-10.8) K/ul RBC 5.04 (4.20-5.40) M/uL Hgb 14.4 (12.0-16.0) g/dl Hct 43.6 (37.0-47.0) % MCV 86.5 (80.0-100.0) fL MCH 28.6 (25.0-34.0) pg MCHC 33.0 (32.0-36.0) g/dL RDW Std Deviation 51.0 H (36.4-46.3) fL RDW Coeff of Ara 16.1 H (11.5-14.5) % Plt Count 197 (130-400) K/uL MPV 10.5 (9.4-12.4) fL Immature Gran % (Auto) 0.4 % Neut % (Auto) 96.3 % Lymph % (Auto) 1.1 % [place] % (Auto) 2.0 % Eos % (Auto) 0.1 % Baso % (Auto) 0.1 % Neut # (Auto) 13.70 H (1.40-6.50) K/uL Lymph # (Auto) 0.15 L (1.20-3.40) K/uL [place] # (Auto) 0.29 (0.11-0.59) K/uL Eos # (Auto) 0.01 (0.00-0.50) K/uL Baso # (Auto) 0.02 (0.00-0.20) K/uL Immature Gran # (Auto) 0.05 (0.01-0.20) K/uL PT 10.8 (9.0-12.0) Seconds INR 1.0 (0.9-1.1) APTT 28 (21-31) Seconds PTT Ratio 1.0 Sodium 139 (136-145) mmol/L Potassium 4.2 (3.5-5.1) mmol/L Chloride 108 H (98-107) mmol/L Carbon Dioxide 21 (21-32) mmol/L Anion Gap 10 (3-11) BUN 18 (6-23) mg/dl Creatinine 0.64 (0.6-1.2) mg/dl Est Cr Clr Drug Dosing 122.4 ml/min eGFR 118.12 BUN/Creatinine Ratio 28.1 H (10-20) Glucose 135 H (70-99(Fasting)) mg/dl Lactate 1.7 (0.4-2.0) mmol/L Calcium 8.9 (8.6-10.3) mg/dl Magnesium 1.6 L (1.7-2.4) mg/dl Total Bilirubin 1.4 H (0.2-1.0) mg/dl AST 26 (13-39) U/L ALT 18 (7-52) U/L Alkaline Phosphatase 85 (34-104) U/L Troponin I High Sens 4.5 (0-14) pg/ml Total Protein 6.6 (6.0-8.3) gm/dl Albumin 4.2 (3.4-5.0) gm/dl Globulin 2.4 L (2.5-4.0) gm/dl Albumin/Globulin Ratio 1.8 (0.9-2) Procalcitonin 0.41 (0-0.5) ng/ml Adenovirus (PCR) Not Detected (NotDetected) B. pertussis DNA (PCR) Not Detected (NotDetected) B.parapertussis DNA PCR Not Detected (NotDetected) C. pneumoniae DNA (PCR) Not Detected (NotDetected) Coronavirus OC43 (PCR) Not Detected (NotDetected) Coronavirus HKU1 (PCR) Not Detected (NotDetected) Coronavirus 229E (PCR) Not Detected (NotDetected) SARS-CoV-2 (PCR) Not Detected (NotDetected) Coronavirus NL63 (PCR) Not Detected (NotDetected) Human Metapneumovir PCR Not Detected (NotDetected) Influenza Type A (PCR) Not Detected (NotDetected) Influenza Type B (PCR) Not Detected (NotDetected) M. pneumoniae (PCR) Not Detected (NotDetected) Parainfluenza 1 (PCR) Not Detected (NotDetected) Parainfluenza 2 (PCR) Not Detected (NotDetected) Parainfluenza 3 (PCR) Not Detected (NotDetected) Parainfluenza 4 (PCR) Not Detected (NotDetected) RSV (PCR) Not Detected (NotDetected) Entero/Rhino (PCR) Not Detected (NotDetected) Administered Medications Discontinued Medications Sodium Chloride (Nss) 2,000 mls @ 999 mls/hr IV .Q2H1M ONE Stop: 06/23/24 19:55 Last Infusion: 06/23/24 20:53 Dose: Infused Documented By: athletic instructor: 06/23/24 17:59 Dose: 999 mls/hr Documented By: VENTURA Magnesium Sulfate/Dextrose (Magnesium Sulfate / D5w) 1 gm in 100 mls @ 100 mls/hr IV NOW STA Stop: 06/23/24 20:09 Last Admin: 06/23/24 20:23 Dose: 100 mls/hr Documented By: MED Imaging Data Radiologist's Impression: Chest X-Ray 06/23/24 17:04 INDICATION: Cough. TECHNIQUE: Frontal radiograph of the chest. COMPARISON: Radiograph from 03/22/2024. FINDINGS: Mild cardiomegaly. Right-sided chest port catheter tip in the superior vena cava. Pulmonary vasculature appear within normal limits. Lobe infiltrate. No pleural effusion or pneumothorax. No acute osseous abnormality evident. IMPRESSION: Findings concerning for right lower lobe pneumonia. Electronically signed by Daniele Ybarra 06-23-2024 5:42 PM Discharge Plan Visit Data Chief Complaint: Dehydration Stated Complaint: vomiting, diarrehea, dehydration ED Provider: Linette Norwood Discharge Problem: Vomiting and diarrhea, Pneumonia, Hypomagnesemia, Leukocytosis Forms Stand Alone Forms: [employer] [facility] [employer] Prescriptions Prescriptions: No Action oxycodone 5 mg tablet 5 mg PO BID PRN (Reason: Pain) tramadol 50 mg tablet 50 mg PO BID PRN (Reason: Pain) diphenoxylate-atropine [Lomotil] 2.5-0.025 mg tablet 1 tab PO Q6H PRN (Reason: Diarrhea) (DME) breast pump Device See Rx Instructions .ROUTE .MEDSUPPLY Qty: 1 0RF Rx Instructions: Pt already has a breast pump prochlorperazine maleate 10 mg tablet 10 mg PO QPM PRN (Reason: Nausea) ascorbic acid (vitamin C) [Vitamin C] 500 mg Tablet 500 mg PO QAM Multivitamin W/Coq10 1 tab PO QAM cholecalciferol (vitamin D3) [Vitamin D3] 25 mcg (1,000 unit) Tablet 25 mcg PO DAILY fulvestrant [Faslodex] 250 mg/5 mL Syringe 250 mg IM MONTHLY calcium carbonate 500 mg calcium (1,250 mg) tablet,chewable 500 mg PO BID Qty: 14 0RF ondansetron 4 mg tablet,disintegrating 4 mg PO Q4H PRN (Reason: nausea and vomiting) Qty: 14 0RF Rx Instructions: give 1st dose 30min before emetogenic chemo Referrals Referrals: Davin Crews [Primary Care Provider] -
[2024-06-23 18:29] LABS: Basophils # (auto) 0.02 K/uL (0.00-0.20); Basophils % (auto) 0.1 %; Eosinophils # (auto) 0.01 K/uL (0.00-0.50); Eosinophils % (auto) 0.1 %; Immature Granulocytes # (auto) 0.05 K/uL (0.01-0.20); Immature Granulocytes % (auto) 0.4 %; Lymphocytes # (auto) 0.15 K/uL (1.20-3.40); Lymphocytes % (auto) 1.1 %; Monocytes # (auto) 0.29 K/uL (0.11-0.59); Neutrophils % (auto) 96.3 %
[2024-06-23 18:31] LABS: Magnesium 1.6 mg/dl (1.7-2.4)
[2024-06-23 18:34] LABS: Adenovirus PCR Not Detected (NotDetected); Bordetella parapertussis PCR Not Detected (NotDetected); Bordetella pertussis PCR Not Detected (NotDetected); Chlamydia pneumoniae PCR Not Detected (NotDetected); Coronavirus 229E PCR Not Detected (NotDetected); Coronavirus CoV-2 (COVID19)PCR Not Detected (NotDetected); Coronavirus HKU1 PCR Not Detected (NotDetected); Coronavirus NL63 PCR Not Detected (NotDetected); Coronavirus OC43PCR Not Detected (NotDetected); Human Metapneumovirus PCR Not Detected (NotDetected); Influenza A PCR Not Detected (NotDetected); Influenza B PCR Not Detected (NotDetected); Mycoplasma pneumoniae PCR Not Detected (NotDetected); Parainfluenza Virus 1 PCR Not Detected (NotDetected); Parainfluenza Virus 2 PCR Not Detected (NotDetected); Parainfluenza Virus 3 PCR Not Detected (NotDetected); Parainfluenza Virus 4 PCR Not Detected (NotDetected); Respiratory Syncytial VirusPCR Not Detected (NotDetected); Rhinovirus/Enterovirus PCR Not Detected (NotDetected)
[2024-06-23 18:37] LABS: Troponin I High Sensitivity 4.5 pg/ml (0-14)
[2024-06-23 19:07] LABS: Partial Thromboplastin Time 28 Seconds (21-31); Prothrombin Time 10.8 Seconds (9.0-12.0)
[2024-06-23] MEDS: MAGNESIUM SULFATE / D5W 1 GM/100 ML BAG IV STA (20:23)
[2024-06-23] MEDS: CEFEPIME 2000MG 2,000 MG/20 ML SYR IV STA (21:29)
--- NOTE | 2024-06-23 23:42 | History & Physical Report ---
Date of Service June 23, 2024 Assessment & Plan (1) Pneumonia: Plan: 33-year-old female with past medical history significant for stage IV breast cancer last IV chemo 05/31/2024 and today she was supposed to start p.o. chemo but started to have persistent nausea vomiting and diarrhea which prompted her to come to the ER. Patient took marijuana gummy and thinks its cause of her symptoms. She had similar episode in the past with a gummy. In the ER she also found to have right lower lobe pneumonia on chest x-ray. Patient denies any fevers. No cough. No shortness of breath. No chest pain. Currently no headache. No nauseous or sore throat. No abdominal pain. Normal bowel and bladder movements. No rash. Hemodynamics are okay. Pneumonia right lower lobe on chest x-ray Received cefepime in the ER Continue with Rocephin and Doxy Patient seems asymptomatic Will monitor Nausea vomiting and diarrhea IV fluids Clears IV antiemetics as needed if no improvement will consult GI Will monitor Stage IV breast cancer On chemo Follow-up with heme-onc Hypomagnesia Replace Will follow labs DVT prophylaxis Lovenox Disposition Medical floor Full code. History of Present Illness Chief Complaint: Nausea vomiting and diarrhea Primary Care Provider: Davin Crews 33-year-old female with past medical history significant for stage IV breast cancer last IV chemo 05/31/2024 and today she was supposed to start p.o. chemo but started to have persistent nausea vomiting and diarrhea which prompted her to come to the ER. Patient took marijuana gummy and thinks its the cause of her symptoms. She had similar episode in the past with a gummy. In the ER she also found to have right lower lobe pneumonia on chest x-ray. Patient denies any fevers. No cough. No shortness of breath. No chest pain. Currently no headache. No nauseous or sore throat. No abdominal pain. Normal bowel and bladder movements. No rash. Hemodynamics are okay. Past med history. As mentioned above Past surgical history. A port, bilateral oophorectomy, ERCP, laparoscopic cholecystectomy, dilatation curettage, status post bilateral myringotomy with tube placement, status post right tympanoplasty x 2, , tubal ligation, wisdom tooth extraction, status post LEEP of cervix. Family history. Maternal grandmother had breast cancer. Aunt had breast cancer. Grandfather heart murmur. Social history. Former smoker. Uses medical marijuana. Alcohol yes. Allergies Allergy/AdvReac Type Severity Reaction Status Date / Time No Known Drug Allergies Allergy Verified 05/09/24 10:18 Home Medications Medication Instructions Recorded Confirmed Type breast pump #1 ea 05/08/22 06/23/24 Rx Multivitamin W/Coq10 1 tab PO QAM 07/12/23 06/23/24 History ascorbic acid (vitamin C) 500 mg 500 mg PO QAM 07/12/23 06/23/24 History tablet (Vitamin C) prochlorperazine maleate 10 mg 10 mg PO QPM PRN Nausea 07/12/23 06/23/24 History tablet fulvestrant 250 mg/5 mL 250 mg IM MONTHLY 10/09/23 06/23/24 History intramuscular syringe (Faslodex) oxycodone 5 mg tablet 5 mg PO BID PRN Pain 10/21/23 06/23/24 History tramadol 50 mg tablet 50 mg PO BID PRN Pain 10/21/23 06/23/24 History calcium carbonate 500 mg PO BID #14 tabs 11/25/23 06/23/24 Rx ondansetron 4 mg disintegrating 4 mg PO Q4H PRN nausea and 02/08/24 06/23/24 Rx tablet vomiting #14 tabs diphenoxylate-atropine 2.5 1 tab PO Q6H PRN Diarrhea 03/04/24 06/23/24 History mg-0.025 mg tablet (Lomotil) cholecalciferol (vitamin D3) 25 25 mcg PO DAILY 06/23/24 06/23/24 History mcg (1,000 unit) tablet (Vitamin D3) Past Med/Surg History Problem List (Updated 06/23/24 @ 21:00 by Linette Norwood MD) Leukocytosis (Acute) Hypomagnesemia (Acute) Pneumonia (Acute) Vomiting and diarrhea (Acute) Abdominal pain, RUQ (Acute) Acute cholecystitis (Acute) Choledocholithiasis (Acute) Pneumonia Metastatic disease (Acute) Acute neck pain (Acute) Syncope and collapse (Acute) Obese History of cervical dysplasia Medical History Weakness Distal paresthesia Hypocalcemia Hypokalemia History of cervical dysplasia History of pneumonia (04/2023) 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, ER/Pr+, Her 2 neg History of COVID-19 11/2021- "mild symptoms" Missed Hx Surgical History Port-A-Cath in place (11/11/23) Insertion of Access Port with Fluoroscopy Right Internal Jugular Vein(Right) - Kole Rubio, DO, FACS Hx of bilateral oophorectomy (10/2023) History of ERCP 07/14/23, [facility] Hx laparoscopic cholecystectomy Robotic Laparoscopic Cholecystectomy: Grade 1 view, MAC#3, ETT 7.0 at [facility] History of dilatation and curettage S/p bilateral myringotomy with tube placement S/P tympanoplasty Right, x2 History of low transverse section x2, with tubal ligation S/P wisdom tooth extraction S/P LEEP of cervix Family History Grandmother (Maternal) Breast cancer Aunt Breast cancer Grandfather Heart murmur Father Family history of reaction to anesthesia nausea/vomiting Other Twins, both liveborn Social History Smoking Status: Former smoker Tobacco Type: Cigarettes Second Hand Exposure: No; Do You Dip or Chew Tobacco: No; Hx Alcohol Use: No Hx Substance Use: Yes Last Used Substance: Hours (ago) Last Used Substance Other:: 11/06/23 Substance Use Type Other:: THC Preferred Language: [place]ese Communication Ability: Effective Visual Impairment: No Limitations Efficiency Clerk Required: No Beliefs That Will Affect Care: None marital status: marital status details: Austin Almendarez (36) [phone] Current Living Situation: Family Current Living Situation Comment: 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 ENT- oropharynx clear Neck- supple, no JVD. Lungs- clear to auscultation no wheezing or crackles Heart- regular rate and rhythm; no murmur, no gallop. Abdomen- normal bowel sounds, soft, nontender, no distension Extremities- no pretibial edema, no erythema seen Neuro- alert, oriented PERRL, no facial palsy; no dysarthria; moves extremities Results & Data Results & Data Vital Signs (Past 12 Hours) Vital Signs Temp Pulse Pulse Pulse Resp BP BP 06/23/24 22:06 102 H 06/23/24 21:38 102 H 16 106/66 06/23/24 20:26 99 H 24 99/56 L 06/23/24 19:00 94 H 18 120/66 06/23/24 18:07 06/23/24 18:05 102 H 16 118/87 06/23/24 18:02 105 H 06/23/24 17:00 36.8 C 120 H 18 103/71 Pulse Ox O2 Del Method 06/23/24 22:06 06/23/24 21:38 06/23/24 20:26 06/23/24 19:00 99 Room Air 06/23/24 18:07 Room Air 06/23/24 18:05 100 Room Air 06/23/24 18:02 06/23/24 17:00 98 Room Air Diagnostic Findings Laboratory Results WBC 14.22 K/ul (4.8-10.8) H 06/23/24 17:24 RBC 5.04 M/uL (4.20-5.40) 06/23/24 17:24 Hgb 14.4 g/dl (12.0-16.0) 06/23/24 17:24 Hct 43.6 % (37.0-47.0) 06/23/24 17:24 MCV 86.5 fL (80.0-100.0) 06/23/24 17:24 MCH 28.6 pg (25.0-34.0) 06/23/24 17:24 MCHC 33.0 g/dL (32.0-36.0) 06/23/24 17:24 RDW Std Deviation 51.0 fL (36.4-46.3) H 06/23/24 17:24 RDW Coeff of Ara 16.1 % (11.5-14.5) H 06/23/24 17:24 Plt Count 197 K/uL (130-400) 06/23/24 17:24 MPV 10.5 fL (9.4-12.4) 06/23/24 17:24 Immature Gran % (Auto) 0.4 % 06/23/24 17:24 Neut % (Auto) 96.3 % 06/23/24 17:24 Lymph % (Auto) 1.1 % 06/23/24 17:24 [place] % (Auto) 2.0 % 06/23/24 17:24 Eos % (Auto) 0.1 % 06/23/24 17:24 Baso % (Auto) 0.1 % 06/23/24 17:24 Neut # (Auto) 13.70 K/uL (1.40-6.50) H 06/23/24 17:24 Lymph # (Auto) 0.15 K/uL (1.20-3.40) L 06/23/24 17:24 [place] # (Auto) 0.29 K/uL (0.11-0.59) 06/23/24 17:24 Eos # (Auto) 0.01 K/uL (0.00-0.50) 06/23/24 17:24 Baso # (Auto) 0.02 K/uL (0.00-0.20) 06/23/24 17:24 Immature Gran # (Auto) 0.05 K/uL (0.01-0.20) 06/23/24 17:24 PT 10.8 Seconds (9.0-12.0) 06/23/24 17:24 INR 1.0 (0.9-1.1) 06/23/24 17:24 APTT 28 Seconds (21-31) 06/23/24 17:24 PTT Ratio 1.0 06/23/24 17:24 Sodium 139 mmol/L (136-145) 06/23/24 17:24 Potassium 4.2 mmol/L (3.5-5.1) 06/23/24 17:24 Chloride 108 mmol/L (98-107) H 06/23/24 17:24 Carbon Dioxide 21 mmol/L (21-32) 06/23/24 17:24 Anion Gap 10 (3-11) 06/23/24 17:24 BUN 18 mg/dl (6-23) 06/23/24 17:24 Creatinine 0.64 mg/dl (0.6-1.2) 06/23/24 17:24 Est Cr Clr Drug Dosing 122.4 ml/min 06/23/24 17:24 eGFR 118.12 06/23/24 17:24 BUN/Creatinine Ratio 28.1 (10-20) H 06/23/24 17:24 Glucose 135 mg/dl (70-99(Fasting)) H 06/23/24 17:24 Lactate 1.7 mmol/L (0.4-2.0) 06/23/24 18:10 Calcium 8.9 mg/dl (8.6-10.3) 06/23/24 17:24 Magnesium 1.6 mg/dl (1.7-2.4) L 06/23/24 17:24 Total Bilirubin 1.4 mg/dl (0.2-1.0) H 06/23/24 17:24 AST 26 U/L (13-39) 06/23/24 17:24 ALT 18 U/L (7-52) 06/23/24 17:24 Alkaline Phosphatase 85 U/L (34-104) 06/23/24 17:24 Troponin I High Sens 4.5 pg/ml (0-14) 06/23/24 17:24 Total Protein 6.6 gm/dl (6.0-8.3) 06/23/24 17:24 Albumin 4.2 gm/dl (3.4-5.0) 06/23/24 17:24 Globulin 2.4 gm/dl (2.5-4.0) L 06/23/24 17:24 Albumin/Globulin Ratio 1.8 (0.9-2) 06/23/24 17:24 Procalcitonin 0.41 ng/ml (0-0.5) 06/23/24 17:24 Adenovirus (PCR) Not Detected (NotDetected) 06/23/24 17:24 B. pertussis DNA (PCR) Not Detected (NotDetected) 06/23/24 17:24 B.parapertussis DNA PCR Not Detected (NotDetected) 06/23/24 17:24 C. pneumoniae DNA (PCR) Not Detected (NotDetected) 06/23/24 17:24 Coronavirus OC43 (PCR) Not Detected (NotDetected) 06/23/24 17:24 Coronavirus HKU1 (PCR) Not Detected (NotDetected) 06/23/24 17:24 Coronavirus 229E (PCR) Not Detected (NotDetected) 06/23/24 17:24 SARS-CoV-2 (PCR) Not Detected (NotDetected) 06/23/24 17:24 Coronavirus NL63 (PCR) Not Detected (NotDetected) 06/23/24 17:24 Human Metapneumovir PCR Not Detected (NotDetected) 06/23/24 17:24 Influenza Type A (PCR) Not Detected (NotDetected) 06/23/24 17:24 Influenza Type B (PCR) Not Detected (NotDetected) 06/23/24 17:24 M. pneumoniae (PCR) Not Detected (NotDetected) 06/23/24 17:24 Parainfluenza 1 (PCR) Not Detected (NotDetected) 06/23/24 17:24 Parainfluenza 2 (PCR) Not Detected (NotDetected) 06/23/24 17:24 Parainfluenza 3 (PCR) Not Detected (NotDetected) 06/23/24 17:24 Parainfluenza 4 (PCR) Not Detected (NotDetected) 06/23/24 17:24 RSV (PCR) Not Detected (NotDetected) 06/23/24 17:24 Entero/Rhino (PCR) Not Detected (NotDetected) 06/23/24 17:24 Impressions Chest X-Ray 06/23/24 17:04 INDICATION: Cough. TECHNIQUE: Frontal radiograph of the chest. COMPARISON: Radiograph from 03/22/2024. FINDINGS: Mild cardiomegaly. Right-sided chest port catheter tip in the superior vena cava. Pulmonary vasculature appear within normal limits. Lobe infiltrate. No pleural effusion or pneumothorax. No acute osseous abnormality evident. IMPRESSION: Findings concerning for right lower lobe pneumonia. Electronically signed by Daniele Ybarra 06-23-2024 5:42 PM ECG Additional Comments: ECG. Normal sinus rhythm rate of 99. No significant change was found. Code Status & VTE Plan VTE Prophylaxis Plan VTE Prophylaxis will be ordered: Yes
[2024-06-24] MEDS ORDERED: ONDANSETRON INJ 2 MG/ML 2 ML VIAL IV PRN (01:09)
[2024-06-24] MEDS ORDERED: traMADol HCL 50 MG TABLET PO PRN (01:09)
[2024-06-24] MEDS ORDERED: HYDROmorphone INJ 0.5 MG/0.5 ML SYR IV PRN ×2 (01:09)
[2024-06-24] MEDS: D5W AND NSS 1,000 ML IV SCH (01:17)
[2024-06-24] MEDS: MAGNESIUM SULFATE / D5W 1 GM/100 ML BAG IV ONE (01:28)
[2024-06-24] MEDS: DOXYCYCLINE HYCLATE 100 MG in DEXTROSE 5% MINI-B 100 ML IV SCH (02:07)
[2024-06-24] MEDS: ZOLPIDEM TARTRATE 5 MG TAB PO STA ×2 (05:04→21:02)
[2024-06-24 07:44] LABS: Basophils # (auto) 0.01 K/uL (0.00-0.20); Basophils % (auto) 0.2 %; Eosinophils # (auto) 0.05 K/uL (0.00-0.50); Eosinophils % (auto) 1.1 %; Hematocrit (blood only) 33.3 % (37.0-47.0); Hemoglobin 10.6 g/dl (12.0-16.0); Immature Granulocytes # (auto) 0.01 K/uL (0.01-0.20); Immature Granulocytes % (auto) 0.2 %; Lymphocytes # (auto) 0.27 K/uL (1.20-3.40); Lymphocytes % (auto) 5.7 %; Mean Corpuscular Hemoglobin 28.5 pg (25.0-34.0); Mean Corpuscular Hgb Conc 31.8 g/dL (32.0-36.0); Mean Corpuscular Volume 89.5 fL (80.0-100.0); Mean Platelet Volume 10.3 fL (9.4-12.4); Monocytes % (auto) 8.5 %; Neutrophils # (auto) 3.99 K/uL (1.40-6.50); Neutrophils % (auto) 84.3 %; Platelet Count 136 K/uL (130-400); RDW Coefficient of Variation 16.2 % (11.5-14.5); RDW Standard Deviation 53.6 fL (36.4-46.3); Red Blood Count 3.72 M/uL (4.20-5.40); White Blood Count 4.73 K/ul (4.8-10.8)
[2024-06-24 07:46] LABS: BUN Creatinine Ratio 24.6 (10-20); Calcium 7.8 mg/dl (8.6-10.3); Creatinine Clr Calc Pharmacy 143.4 ml/min; Magnesium 2.2 mg/dl (1.7-2.4); Phosphorus 3.2 mg/dl (2.5-4.9); Potassium 3.3 mmol/L (3.5-5.1)
[2024-06-24] MEDS: POTASSIUM CHLORIDE CRTAB 20 MEQ TABCR PO STA (09:03)
[2024-06-24] MEDS: cefTRIAXone SODIUM 2,000 MG/50 ML BAG IV SCH (09:04)
[2024-06-24] MEDS: CHOLECALCIFEROL 25 MCG (1000 UNITS) TAB PO SCH (09:08)
[2024-06-24] MEDS: CALCIUM CARBONATE 1250MG TAB PO SCH (09:08)
[2024-06-24] MEDS: ASCORBIC ACID 500 MG TAB PO SCH (09:08)
[2024-06-24] MEDS: MULTIVITAMIN TAB PO SCH (09:08)
[2024-06-24 09:56] LABS: Adenovirus F 40/41 PCR Not Detected (NotDetected); Astrovirus PCR Not Detected (NotDetected); Campylobacter PCR Not Detected (NotDetected); Cryptosporidium PCR Not Detected (NotDetected); Cyclospora cayetanensis PCR Not Detected (NotDetected); Entamoeba histolytica PCR Not Detected (NotDetected); Enteroaggregative E.coli(EAEC) Not Detected (NotDetected); Enteropathogenic E.coli (EPEC) Not Detected (NotDetected); Enterotoxigenic E.coli (ETEC) Not Detected (NotDetected); Giardia lamblia PCR Not Detected (NotDetected); Norovirus GI/GII PCR Not Detected (NotDetected); Plesiomonas shigelloides PCR Not Detected (NotDetected); Rotavirus A PCR Not Detected (NotDetected); Salmonella PCR Not Detected (NotDetected); Sapovirus PCR Not Detected (NotDetected); Shiga-like Toxin E.coli (STEC) Not Detected (NotDetected); Shigella/Enteroinvasive E.coli Not Detected (NotDetected); Vibrio cholerae PCR Not Detected (NotDetected); Vibrio species PCR Not Detected (NotDetected); Yersinia enterocolitica PCR Not Detected (NotDetected)
[2024-06-24] MEDS: ENOXAPARIN INJ 40 MG/0.4 ML SYR SQ SCH (10:02)
--- NOTE | 2024-06-24 15:40 | Hospitalist Progress Note ---
Date of Service June 24, 2024 Assessment & Plan (1) Pneumonia: Plan: 33-year-old female with past medical history significant for stage IV breast cancer last IV chemo 05/31/2024 and today she was supposed to start p.o. chemo but started to have persistent nausea vomiting and diarrhea which prompted her to come to the ER. Patient took marijuana gummy and thinks its cause of her symptoms. She had similar episode in the past with a gummy. In the ER she also found to have right lower lobe pneumonia on chest x-ray. Patient denies any fevers. No cough. No shortness of breath. No chest pain. Currently no headache. No nauseous or sore throat. No abdominal pain. Normal bowel and bladder movements. No rash. Hemodynamics are okay. Pneumonia Right lower lobe on chest x-ray Received cefepime in the ER Continue with Rocephin and Doxy Patient seems asymptomatic Clinically much better and remains afebrile without any significant respiratory symptoms Nausea vomiting and diarrhea IV fluids IV antiemetics as needed Stool cultures are negative and C. difficile is negative to Will give Imodium as needed to control diarrhea Diet is advanced and likely discharge tomorrow if symptomatically better Stage IV breast cancer On chemo Follow-up with heme-onc Discussed with the oncologist and he will stop by the patient this afternoon Hypomagnesia Replace Will follow labs DVT prophylaxis Lovenox Disposition Medical floor Full code. Admission and Anticipated Discharge Date Admission Date: June 23, 2024 Subjective 06/24/2024 Patient was seen and examined in medical floor She has been getting chemo for breast cancer and was admitted with nausea vomiting diarrhea and noted to have pneumonia as well Has been feeling much better since admission Will advance diet as tolerated and likely discharge tomorrow Review of Systems Review of Systems: All systems reviewed and are unremarkable except as noted below Physical Exam Physical Exam: Lying in bed without any acute distress Constitutional: well developed, well nourished, + ill appearing and + obese Eyes: PERRL, conjunctivae normal, anicteric sclerae ENMT: external ear and nose normal, oropharynx normal Neck: trachea midline, no thyromegaly Respiratory: no respiratory distress Auscultation: lungs clear to auscultation bilaterally Cardiovascular: Rate/Rhythm: regular rate and regular rhythm; not tachycardic Heart Sounds: normal S1 and normal S2; no murmur Extremities: no edema Gastrointestinal (Abdomen): Inspection/Auscultation: normal bowel sounds; abdomen not distended Percussion/Palpation: abdomen soft; abdomen nontender Musculoskeletal: No acute arthritis involving any of the joint Neurologic: normal touch/pain/proprioception and moves all extremities; no focal motor deficits Lymphatic: no cervical or axillary lymphadenopathy Results & Data Results & Data Vital Signs (Past 12 Hours) Vital Signs Temp Pulse Resp BP Pulse Ox O2 Del Method 06/24/24 14:09 36.7 C 85 17 119/68 99 Room Air 06/24/24 07:02 36.7 C 98 H 16 108/64 97 Room Air Laboratory Results Short CBC 06/23/24 06/24/24 Range/Units 17:24 05:43 WBC 14.22 H 4.73 L D (4.8-10.8) K/ul Hgb 14.4 10.6 L D (12.0-16.0) g/dl Hct 43.6 33.3 L (37.0-47.0) % Plt Count 197 136 (130-400) K/uL BMP 06/23/24 06/24/24 17:24 05:43 Sodium 139 140 Potassium 4.2 3.3 L D Chloride 108 H 112 H Carbon Dioxide 21 23 BUN 18 14 Creatinine 0.64 0.57 L Glucose 135 H 94 Calcium 8.9 7.8 L Liver Function 06/23/24 Range/Units 17:24 Total Bilirubin 1.4 H (0.2-1.0) mg/dl AST 26 (13-39) U/L ALT 18 (7-52) U/L Alkaline Phosphatase 85 (34-104) U/L Albumin 4.2 (3.4-5.0) gm/dl Medications Administered Current Inpatient Medications Ascorbic Acid (Ascorbic Acid 500 Mg Tab) 500 mg PO QAM MIN Stop: 07/24/24 08:59 Last Admin: 06/24/24 09:08 Dose: 500 mg Calcium Carbonate (Calcium Carbonate 1250mg Tab) 1 tab PO BID MIN Stop: 07/24/24 08:59 Last Admin: 06/24/24 09:08 Dose: 1 tab Enoxaparin Sodium (Enoxaparin Inj 40 Mg/0.4 Ml Syr) 40 mg SQ Q24H MIN Stop: 07/24/24 08:59 Last Admin: 06/24/24 10:02 Dose: Not Given Hydromorphone HCl (Hydromorphone Inj 0.5 Mg/0.5 Ml Syr) 0.25 mg IV Q6H PRN PRN Reason: Moderate Pain (Scale 4, 5, 6) Stop: 07/08/24 01:08 Hydromorphone HCl (Hydromorphone Inj 0.5 Mg/0.5 Ml Syr) 0.5 mg IV Q6H PRN PRN Reason: Severe Pain (Scale 7, 8, 9,10) Stop: 07/08/24 01:08 Dextrose/Sodium Chloride (D5w And Nss) 1,000 mls @ 125 mls/hr IV .Q8H [facility] Stop: 06/25/24 01:08 Last Admin: 06/24/24 11:54 Dose: 125 mls/hr Doxycycline Hyclate 100 mg/ (Dextrose) 100 mls @ 50 mls/hr IV Q12H [facility] Stop: 06/29/24 01:59 Last Admin: 06/24/24 14:06 Dose: 50 mls/hr Ceftriaxone Sodium (Rocephin) 2,000 mg in 50 mls @ 100 mls/hr IV Q24H [facility] Stop: 06/29/24 07:59 Last Infusion: 06/24/24 09:45 Dose: Infused Loperamide HCl (Loperamide Hcl 2 Mg Cap) 2 mg PO Q3H PRN PRN Reason: Diarrhea Stop: 07/24/24 14:13 Multivitamins (Multivitamin Tab) 1 tab PO QAM [facility] Stop: 07/24/24 08:59 Last Admin: 06/24/24 09:08 Dose: 1 tab Ondansetron HCl (Ondansetron Inj 2 Mg/Ml 2 Ml Vial) 4 mg IV Q6H PRN PRN Reason: Nausea Stop: 07/24/24 01:08 Tramadol HCl (Tramadol Hcl 50 Mg Tablet) 50 mg PO BID PRN PRN Reason: Pain Stop: 07/24/24 01:08 Vitamin D (Cholecalciferol 25 Mcg (1000 Units) Tab) 25 mcg PO DAILY [facility] Stop: 07/24/24 08:59 Last Admin: 06/24/24 09:08 Dose: 25 mcg
[2024-06-24] MEDS: LOPERAMIDE HCL 2 MG CAP PO PRN (16:21)
[2024-06-24 18:09] LABS: Appearance Urine Clear (Clear); Bacteria Urine Automated None Seen (None Seen); Bilirubin Urine Negative (Negative); Blood Urine Negative (Negative); Cast Urine Automated 0-2 /lpf (0-2); Color Urine Yellow; Epithelial Cell Urine Auto 0-2 /hpf (0-2); Glucose Urine UA Negative (Negative); Ketones Urine Negative (Negative); Leukocyte Esterase Urine Trace (Negative); Nitrite Urine Negative (Negative); Protein Urine Negative (Negative); RBC Urine Automated 0-2 /hpf (0-2); Specific Gravity Urine 1.008 (1.000-1.030); Urobilinogen Urine Negative (Negative); WBC Urine Automated 0-5 /hpf (0-5); pH Urine 6.5 (4.5-7.5)
--- NOTE | 2024-06-24 18:11 | Electrocardiogram Report ---
Test Reason : Blood Pressure : */* mmHG Vent. Rate : 99 BPM Atrial Rate : 99 BPM P-R Int : 152 ms QRS Dur : 72 ms QT Int : 364 ms P-R-T Axes : 37 0 20 degrees QTcB Int : 467 ms Normal sinus rhythm Normal ECG When compared with ECG of 08-Feb-2024 12:06, No significant change was found Confirmed by Bi Heaton ([id number]) on 06/24/2024 6:10:30 PM Referred By: Confirmed By: Bi Heaton
[2024-06-24 21:35] VITALS: RESP 16
[2024-06-25 06:52] LABS: Basophils # (auto) 0.01 K/uL (0.00-0.20); Basophils % (auto) 0.4 %; Eosinophils # (auto) 0.09 K/uL (0.00-0.50); Eosinophils % (auto) 3.2 %; Hematocrit (blood only) 29.8 % (37.0-47.0); Hemoglobin 9.6 g/dl (12.0-16.0); Immature Granulocytes # (auto) 0.01 K/uL (0.01-0.20); Immature Granulocytes % (auto) 0.4 %; Lymphocytes # (auto) 0.32 K/uL (1.20-3.40); Lymphocytes % (auto) 11.6 %; Mean Corpuscular Hemoglobin 29.1 pg (25.0-34.0); Mean Corpuscular Hgb Conc 32.2 g/dL (32.0-36.0); Mean Corpuscular Volume 90.3 fL (80.0-100.0); Mean Platelet Volume 10.2 fL (9.4-12.4); Monocytes # (auto) 0.32 K/uL (0.11-0.59); Monocytes % (auto) 11.6 %; Neutrophils # (auto) 2.02 K/uL (1.40-6.50); Neutrophils % (auto) 72.8 %; Platelet Count 103 K/uL (130-400); RDW Coefficient of Variation 16.1 % (11.5-14.5); RDW Standard Deviation 53.5 fL (36.4-46.3); White Blood Count 2.77 K/ul (4.8-10.8)
[2024-06-25 07:13] VITALS: BP 111/67; PULSE 72; TEMP 97.9; O2SAT 96
[2024-06-25 07:13] LABS: BUN Creatinine Ratio 12.5 (10-20); Calcium 8.1 mg/dl (8.6-10.3); Creatinine Clr Calc Pharmacy 170.3 ml/min; Magnesium 1.7 mg/dl (1.7-2.4); Phosphorus 2.9 mg/dl (2.5-4.9); Potassium 3.8 mmol/L (3.5-5.1)
--- NOTE | 2024-06-25 11:45 | Hospitalist Progress Note ---
Date of Service June 25, 2024 Assessment & Plan (1) Pneumonia: Plan: 33-year-old female with past medical history significant for stage IV breast cancer last IV chemo 05/31/2024 and today she was supposed to start p.o. chemo but started to have persistent nausea vomiting and diarrhea which prompted her to come to the ER. Patient took marijuana gummy and thinks its cause of her symptoms. She had similar episode in the past with a gummy. In the ER she also found to have right lower lobe pneumonia on chest x-ray. Patient denies any fevers. No cough. No shortness of breath. No chest pain. Currently no headache. No nauseous or sore throat. No abdominal pain. Normal bowel and bladder movements. No rash. Hemodynamics are okay. Pneumonia Right lower lobe on chest x-ray Received cefepime in the ER Continue with Rocephin and Doxy Patient seems asymptomatic Clinically much better and remains afebrile without any significant respiratory symptoms She denies any respiratory symptoms and does not have any fever and no chills She will be discharged home on oral antibiotic to finish the course of antibiotic for about 10 days in total Nausea vomiting and diarrhea IV fluids IV antiemetics as needed Stool cultures are negative and C. difficile is negative to Will give Imodium as needed to control diarrhea Diet is advanced and likely discharge tomorrow if symptomatically better Diarrhea is controlled and she was advised to take Imodium as an outpatient Stage IV breast cancer On chemo Follow-up with heme-onc Discussed with the oncologist and he will stop by the patient this afternoon she was seen by his oncologist last evening Hypomagnesia Replace Will follow labs DVT prophylaxis Lovenox Disposition Medical floor Full code. Admission and Anticipated Discharge Date Admission Date: June 23, 2024 Subjective 06/24/2024 Patient was seen and examined in medical floor She has been getting chemo for breast cancer and was admitted with nausea vomiting diarrhea and noted to have pneumonia as well Has been feeling much better since admission Will advance diet as tolerated and likely discharge tomorrow 06/25/2024 The patient was seen and examined in medical floor She has been feeling much better Diarrhea is controlled and does not have any nausea or vomiting Denies any respiratory symptoms and no fever and no chills She will be discharged home this afternoon Review of Systems Review of Systems: All systems reviewed and are unremarkable except as noted below Physical Exam Physical Exam: Lying in bed without any acute distress Constitutional: well developed, well nourished, + ill appearing and + obese Eyes: PERRL, conjunctivae normal, anicteric sclerae ENMT: external ear and nose normal, oropharynx normal Neck: trachea midline, no thyromegaly Respiratory: no respiratory distress Auscultation: lungs clear to auscultation bilaterally Cardiovascular: Rate/Rhythm: regular rate and regular rhythm; not tachycardic Heart Sounds: normal S1 and normal S2; no murmur Extremities: no edema Gastrointestinal (Abdomen): Inspection/Auscultation: normal bowel sounds; abdomen not distended Percussion/Palpation: abdomen soft; abdomen nontender Neurologic: normal touch/pain/proprioception and moves all extremities; no focal motor deficits Lymphatic: no cervical or axillary lymphadenopathy Results & Data Results & Data Vital Signs (Past 12 Hours) Vital Signs Temp Pulse Resp BP Pulse Ox O2 Del Method 06/25/24 07:12 36.6 C 72 16 111/67 96 Room Air Laboratory Results Short CBC 06/25/24 Range/Units 06:11 WBC 2.77 L (4.8-10.8) K/ul Hgb 9.6 L (12.0-16.0) g/dl Hct 29.8 L (37.0-47.0) % Plt Count 103 L (130-400) K/uL BMP 06/25/24 06:11 Sodium 143 Potassium 3.8 Chloride 117 H Carbon Dioxide 22 BUN 6 Creatinine 0.48 L Glucose 92 Calcium 8.1 L Urine 06/24/24 Range/Units Unknown Urine Color Yellow Urine Appearance Clear (Clear) Urine pH 6.5 (4.5-7.5) Ur Specific Chambers 1.008 (1.000-1.030) Urine Protein Negative (Negative) Urine Glucose (UA) Negative (Negative) Medications Administered Current Inpatient Medications Ascorbic Acid (Ascorbic Acid 500 Mg Tab) 500 mg PO QAM [facility] Stop: 07/24/24 08:59 Last Admin: 06/25/24 08:23 Dose: 500 mg Calcium Carbonate (Calcium Carbonate 1250mg Tab) 1 tab PO BID MIN Stop: 07/24/24 08:59 Last Admin: 06/25/24 08:23 Dose: 1 tab Enoxaparin Sodium (Enoxaparin Inj 40 Mg/0.4 Ml Syr) 40 mg SQ Q24H MIN Stop: 07/24/24 08:59 Last Admin: 06/25/24 08:23 Dose: Not Given Hydromorphone HCl (Hydromorphone Inj 0.5 Mg/0.5 Ml Syr) 0.25 mg IV Q6H PRN PRN Reason: Moderate Pain (Scale 4, 5, 6) Stop: 07/08/24 01:08 Hydromorphone HCl (Hydromorphone Inj 0.5 Mg/0.5 Ml Syr) 0.5 mg IV Q6H PRN PRN Reason: Severe Pain (Scale 7, 8, 9,10) Stop: 07/08/24 01:08 Doxycycline Hyclate 100 mg/ (Dextrose) 100 mls @ 50 mls/hr IV Q12H [facility] Stop: 06/29/24 01:59 Last Infusion: 06/25/24 06:08 Dose: Infused Ceftriaxone Sodium (Rocephin) 2,000 mg in 50 mls @ 100 mls/hr IV Q24H [facility] Stop: 06/29/24 07:59 Last Infusion: 06/25/24 09:08 Dose: Infused Loperamide HCl (Loperamide Hcl 2 Mg Cap) 2 mg PO Q3H PRN PRN Reason: Diarrhea Stop: 07/24/24 14:13 Last Admin: 06/24/24 21:02 Dose: 2 mg Multivitamins (Multivitamin Tab) 1 tab PO QAM [facility] Stop: 07/24/24 08:59 Last Admin: 06/25/24 08:23 Dose: 1 tab Ondansetron HCl (Ondansetron Inj 2 Mg/Ml 2 Ml Vial) 4 mg IV Q6H PRN PRN Reason: Nausea Stop: 07/24/24 01:08 Tramadol HCl (Tramadol Hcl 50 Mg Tablet) 50 mg PO BID PRN PRN Reason: Pain Stop: 07/24/24 01:08 Vitamin D (Cholecalciferol 25 Mcg (1000 Units) Tab) 25 mcg PO DAILY [facility] Stop: 07/24/24 08:59 Last Admin: 06/25/24 08:23 Dose: 25 mcg
[2024-06-25] MEDS ORDERED: DOXYCYCLINE HYCLATE 100 MG CAP PO SCH (21:00)
[2024-06-25] MEDS ORDERED: CEFDINIR 300 MG CAP PO SCH (21:00)
--- NOTE | 2024-06-26 07:53 | Discharge Summary ---
Date of Service June 26, 2024 Admission HPI Per Admitting Provider 33-year-old female with past medical history significant for stage IV breast cancer last IV chemo 05/31/2024 and today she was supposed to start p.o. chemo but started to have persistent nausea vomiting and diarrhea which prompted her to come to the ER. Patient took marijuana gummy and thinks its the cause of her symptoms. She had similar episode in the past with a gummy. In the ER she also found to have right lower lobe pneumonia on chest x-ray. Patient denies any fevers. No cough. No shortness of breath. No chest pain. Currently no headache. No nauseous or sore throat. No abdominal pain. Normal bowel and bladder movements. No rash. Hemodynamics are okay. Past med history. As mentioned above Past surgical history. A port, bilateral oophorectomy, ERCP, laparoscopic cholecystectomy, dilatation curettage, status post bilateral myringotomy with tube placement, status post right tympanoplasty x 2, , tubal ligation, wisdom tooth extraction, status post LEEP of cervix. Family history. Maternal grandmother had breast cancer. Aunt had breast cancer. Grandfather heart murmur. Social history. Former smoker. Uses medical marijuana. Alcohol yes. Admission Exam Per Admitting Provider Physical Exam: General- Not in distress Head- atraumatic Eyes- PERRL. ENT- oropharynx clear Neck- supple, no JVD. Lungs- clear to auscultation no wheezing or crackles Heart- regular rate and rhythm; no murmur, no gallop. Abdomen- normal bowel sounds, soft, nontender, no distension Extremities- no pretibial edema, no erythema seen Neuro- alert, oriented PERRL, no facial palsy; no dysarthria; moves extremities Principal Diagnosis Right lower lobe pneumonia, stage IV breast cancer, nausea, vomiting and diarrhea- improved Discharge Exam Lying in bed without any acute distress Constitutional well developed, well nourished, + ill appearing and + obese Eyes PERRL, conjunctivae normal, anicteric sclerae ENMT external ear and nose normal, oropharynx normal Neck trachea midline, no thyromegaly Respiratory no respiratory distress Auscultation: lungs clear to auscultation bilaterally Cardiovascular Rate/Rhythm: regular rate and regular rhythm; not tachycardic Heart Sounds: normal S1 and normal S2; no murmur Extremities: no edema Gastrointestinal (Abdomen) Inspection/Auscultation: normal bowel sounds; abdomen not distended Percussion/Palpation: abdomen soft; abdomen nontender Neurologic normal touch/pain/proprioception and moves all extremities; no focal motor deficits Lymphatic no cervical or axillary lymphadenopathy Discharge Data Allergies Allergy/AdvReac Type Severity Reaction Status Date / Time No Known Drug Allergies Allergy Verified 05/09/24 10:18 Consultations 06/23/24 20:46 ED Decision to Admit Stat Hospital Course (1) Pneumonia: 33-year-old female with past medical history significant for stage IV breast cancer last IV chemo 05/31/2024 and today she was supposed to start p.o. chemo but started to have persistent nausea vomiting and diarrhea which prompted her to come to the ER. Patient took marijuana gummy and thinks its cause of her symptoms. She had similar episode in the past with a gummy. In the ER she also found to have right lower lobe pneumonia on chest x-ray. Patient denies any fevers. No cough. No shortness of breath. No chest pain. Currently no headache. No nauseous or sore throat. No abdominal pain. Normal bowel and bladder movements. No rash. Hemodynamics are okay. Pneumonia Right lower lobe on chest x-ray Received cefepime in the ER Continue with Rocephin and Doxy Patient seems asymptomatic Clinically much better and remains afebrile without any significant respiratory symptoms She denies any respiratory symptoms and does not have any fever and no chills She will be discharged home on oral antibiotic to finish the course of antibiotic for about 10 days in total Nausea vomiting and diarrhea IV fluids IV antiemetics as needed Stool cultures are negative and C. difficile is negative to Will give Imodium as needed to control diarrhea Diet is advanced and likely discharge tomorrow if symptomatically better Diarrhea is controlled and she was advised to take Imodium as an outpatient Stage IV breast cancer On chemo Follow-up with heme-onc Discussed with the oncologist and he will stop by the patient this afternoon she was seen by his oncologist last evening Hypomagnesia Replace Will follow labs DVT prophylaxis Lovenox Disposition Medical floor Full code. Total Time Total Time Spent Total Time Spent (In Minutes): 35 minutes Discharge Plan Discharge Items Patient Disposition: Home - Self-Care Reason For Visit: N/V, PNEUMONIA Discharge Diagnosis: Right lower lobe pneumonia, stage IV breast cancer, nausea, vomiting and diarrhea- improved Condition on Discharge: Fair Activity: Resume your previous activity Non-emergency contact: Primary Care Provider Call non-emergency contact if: you have any medication questions and your symptoms worsen Follow-up/Referrals: Davin Crews [Primary Care Provider] - (Please make an appointment with your healthcare provider within 7 days) Diet: Regular Addtl Attending Provider Instructions: Please take precautions to avoid falls Try to drink more fluid Finish the course of antibiotic You can try [id number] Imodium for continued diarrhea Please keep appointments with the healthcare providers Pending Studies at Discharge: No Stand-Alone Forms: My [facility], Smoking Cessation Medications and DC Order Prescriptions: New doxycycline hyclate 100 mg Capsule 100 mg PO BID Qty: 10 0RF cefdinir 300 mg Capsule 300 mg PO BID Qty: 10 0RF Continued oxycodone 5 mg tablet 5 mg PO BID PRN (Reason: Pain) tramadol 50 mg tablet 50 mg PO BID PRN (Reason: Pain) diphenoxylate-atropine [Lomotil] 2.5-0.025 mg tablet 1 tab PO Q6H PRN (Reason: Diarrhea) (DME) breast pump Device See Rx Instructions .ROUTE .MEDSUPPLY Qty: 1 0RF Rx Instructions: Pt already has a breast pump prochlorperazine maleate 10 mg tablet 10 mg PO QPM PRN (Reason: Nausea) ascorbic acid (vitamin C) [Vitamin C] 500 mg Tablet 500 mg PO QAM Multivitamin W/Coq10 1 tab PO QAM cholecalciferol (vitamin D3) [Vitamin D3] 25 mcg (1,000 unit) Tablet 25 mcg PO DAILY fulvestrant [Faslodex] 250 mg/5 mL Syringe 250 mg IM MONTHLY calcium carbonate 500 mg calcium (1,250 mg) tablet,chewable 500 mg PO BID Qty: 14 0RF ondansetron 4 mg tablet,disintegrating 4 mg PO Q4H PRN (Reason: nausea and vomiting) Qty: 14 0RF Rx Instructions: give 1st dose 30min before emetogenic chemo Discharge Orders: Discharge Order (Routine); Ordered 06/25/24 Ordered By: Devang La Admission Data Admit Date/Time: 06/23/24 22:26 Attending Provider: Bessie,Manabendra Admit Provider: Kalpesh Kerr Primary Care Provider: aDvin Crews Other Providers: Kalpesh Kerr Other Interventions: Discharge Summary Assessment (RN) Last Done: 06/25/24 12:05
== END 2024-06-25 12:55 | disposition home or self-care (01) | DRG 195 ==
LOC: ED 16:34 → 3E 22:26

== ENCOUNTER 2024-12-12 16:17 | Inpatient (IN) ==
[2024-12-12] MEDS: CALCIUM GLUCONATE 1,000 MG/60 ML BAG IV STA (16:34)
[2024-12-12] MEDS: MAGNESIUM SULFATE / D5W 1 GM/100 ML BAG IV SCH (16:35)
[2024-12-12 17:32] LABS: Anion Gap 11.0 (3-11); Blood Urea Nitrogen 10.0 mg/dl (6-23); Calcium 8.6 mg/dl (8.6-10.3); Carbon Dioxide 20.0 mmol/L (21-32); Chloride 106.0 mmol/L (98-107); Creatinine Clr Calc Pharmacy 85.7 ml/min; Glucose 136.0 mg/dl (70-99(Fasting)); Magnesium 1.3 mg/dl (1.7-2.4); Potassium 2.0 mmol/L (3.5-5.1); Sodium 137.0 mmol/L (136-145)
--- NOTE | 2024-12-12 18:25 | History & Physical Report ---
Date of Service December 12, 2024 Assessment & Plan (1) Brain metastasis: (2) Breast cancer metastasized to liver: (3) Hypokalemia due to excessive gastrointestinal loss of potassium: (4) Hypomagnesemia: (5) Hypoalbuminemia: Plan The patient is a 34-year-old female with metastatic breast cancer, currently undergoing chemotherapy which is due tomorrow. Past medical history includes breast cancer with metastases to liver and brain, hypomagnesemia, history of cervical dysplasia. She had laboratories performed in the outpatient setting which revealed a potassium of 1.5 and magnesium of 0.8. Repeat laboratories in the emergency department revealed potassium of 2.0 and a magnesium level of 1.3. Patient has experienced some palpitations, but no near syncopal events. She reports some nausea with occasional small amounts of emesis. She does have persistent issues with diarrhea that she was told was secondary to chemotherapy. She reports that she takes Lomotil which can help symptoms, but because her to have constipation, and therefore does not like to take it. Hypokalemia- Potassium was found be 1.5 in outpatient setting, and repeat in the ED is 2.0 She is written for 3K riders and 40 mEq potassium orally from the ED. Will recheck laboratories 1 hour after K riders are completed, and then continue to replace Hypomagnesemia- Magnesium in outpatient setting 0.8, and repeat in the ED is 1.3 She was ordered to mag riders from the ED. Recheck laboratories at about 10 PM this evening, and repeat plan is as needed Metastatic breast cancer to brain and liver- Patient due for chemotherapy tomorrow Will consult oncology, she did receive chemotherapy during last admission Hypoalbuminemia- Patient reports that she did start to take Premier protein shakes 1 a day. Will ask nutrition to provide supplement while patient is in the hospital Ongoing diarrhea- Patient has had workup in the outpatient setting She reports that when she takes Lomotil causes constipation so she does not like to take it. Have asked pharmacy and they report that Lomotil can be crushed, will attempt to have her take a half dose and see if she can get improvement with that constipation Another option would be the addition of cholestyramine if needed History of Present Illness Chief Complaint: The patient is referred to the emergency department from the outpatient office due to low potassium and low magnesium found on routine laboratories Primary Care Provider: Davin Crews The patient is a 34-year-old female with metastatic breast cancer, currently undergoing chemotherapy which is due tomorrow. Past medical history includes breast cancer with metastases to liver and brain, hypomagnesemia, history of cervical dysplasia. She had laboratories performed in the outpatient setting which revealed a potassium of 1.5 and magnesium of 0.8. Repeat laboratories in the emergency department revealed potassium of 2.0 and a magnesium level of 1.3. Patient has experienced some palpitations, but no near syncopal events. She reports some nausea with occasional small amounts of emesis. She does have persistent issues with diarrhea that she was told was secondary to chemotherapy. She reports that she takes Lomotil which can help symptoms, but because her to have constipation, and therefore does not like to take it. Allergies Allergy/AdvReac Type Severity Reaction Status Date / Time No Known Drug Allergies Allergy Verified 12/06/24 12:35 Home Medications Medication Instructions Recorded Confirmed Type breast pump #1 ea 05/08/22 12/06/24 Rx ascorbic acid (vitamin C) 500 mg 500 mg PO QAM 07/12/23 12/12/24 History tablet (Vitamin C) multivitamin 1 tab PO DAILY ##0 07/12/23 12/12/24 History prochlorperazine maleate 10 mg 10 mg PO QID PRN Nausea 07/12/23 12/12/24 History tablet (Compazine) fulvestrant 250 mg/5 mL 250 mg IM MONTHLY 10/09/23 12/12/24 History intramuscular syringe (Faslodex) tramadol 50 mg tablet 50 mg PO BID PRN Pain 10/21/23 12/12/24 History diphenoxylate-atropine 2.5 1 tab PO Q6H PRN Diarrhea 03/04/24 12/12/24 History mg-0.025 mg tablet (Lomotil) cholecalciferol (vitamin D3) 25 25 mcg PO DAILY 06/23/24 12/12/24 History mcg (1,000 unit) tablet (Vitamin D3) escitalopram oxalate 10 mg tablet 10 mg PO HS 11/19/24 12/12/24 History (Lexapro) nystatin 100,000 unit/gram topical 1 applic topical DAILY PRN 11/19/24 12/12/24 History powder (Nyamyc) Irritation ondansetron 8 mg disintegrating 8 mg PO TID PRN Nausea And Vomiting 11/19/24 12/12/24 History tablet oxycodone 10 mg tablet 10 mg PO Q8 PRN Pain 11/19/24 12/12/24 History calcium carbonate (Calcium 500) 500 mg PO BID 12/05/24 12/12/24 History alprazolam 0.5 mg tablet (Xanax) 0.5 mg PO Q8H PRN Anxiety 12/12/24 12/12/24 History Past Med/Surg History Problem List (Updated 12/12/24 @ 18:20 by Antonio Ludwig MD) Hypoalbuminemia Hypokalemia due to excessive gastrointestinal loss of potassium Brain metastasis (Chronic) Anemia (Acute) Elevated liver enzymes (Acute) Hypokalemia (Acute) Metastatic cancer (Acute) Breast cancer metastasized to liver Hypomagnesemia (Acute) Choledocholithiasis (Acute) Metastatic disease (Acute) Encounter for pre-operative examination History of cervical dysplasia Medical History Breast cancer metastasized to liver Most recent chemo 11/22/24 per [place] record Elevated liver enzymes History of anemia History of anxiety History of cervical dysplasia History of COVID-19 11/2021- "mild symptoms" > resolved History of pneumonia (04/2023) Hx of jaundice Cancer with mets to liver Hx of nausea Hypocalcemia Hypokalemia 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, ER/Pr+, Her 2 neg Missed Hx Surgical History History of dilatation and curettage History of ERCP 07/14/23, [facility] History of low transverse section x2, with tubal ligation Hx laparoscopic cholecystectomy Robotic Laparoscopic Cholecystectomy: Grade 1 view, MAC#3, ETT 7.0 at [facility] Hx of bilateral oophorectomy (10/2023) Port-A-Cath in place (11/11/23) Insertion of Access Port with Fluoroscopy Right Internal Jugular Vein S/p bilateral myringotomy with tube placement S/P LEEP of cervix S/P tympanoplasty Right x2 S/P wisdom tooth extraction Family History Grandmother (Maternal) Breast cancer Aunt Breast cancer Grandfather Heart murmur Father Family history of reaction to anesthesia nausea/vomiting Other Twins, both liveborn Social History Smoking Status: Never smoker Tobacco Type: Cigarettes Second Hand Exposure: Yes (hx as child); Do You Dip or Chew Tobacco: No; Hx Alcohol Use: No Hx Substance Use: Yes Substance Use Type Other:: edibles or topical Preferred Language: Indian Communication Ability: Effective Visual Impairment: No Limitations Computer Service Technician Required: No Beliefs That Will Affect Care: None marital status: marital status details: Austin Almendarez (36) [phone] Current Living Situation: Spouse and Family Current Living Situation Comment: , 2 children 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 The review of systems is otherwise negative other than for that already noted above, and at least 10 systems have been reviewed. Physical Exam Physical Exam: The patient is awake, alert and oriented 3, well developed and well nourished, normocephalic and atraumatic, lying in bed and in no acute distress. HEENT--PERRL, EOMI, mucous membranes and oropharynx mildly dry. Neck--supple. No JVD. No bruits. Thyroid normal, trachea midline, no adenopathy. Heart--normal S1 and S2. No murmurs, rubs or gallops. Lungs--clear bilaterally, no respiratory distress, no accessory muscle use. Abdomen--normal bowel sounds and soft. Nontender. Nondistended, no hernias or masses, no organomegaly. Extremities--no cyanosis or clubbing. No edema. There are good distal pulses b/l. Dermatologic--mild sunburn. Neurologic--cranial nerves II through XII grossly intact. Rheumatologic--normal range of motion. Psychiatric--normal affect. Results & Data Results & Data Vital Signs (Past 12 Hours) Vital Signs Temp Pulse Resp BP Pulse Ox O2 Del Method 12/12/24 17:39 71 23 98 12/12/24 17:30 110/78 12/12/24 17:24 74 12/12/24 17:23 99 Room Air 12/12/24 17:00 71 23 98 12/12/24 17:00 112/75 12/12/24 17:00 112/75 12/12/24 17:00 112/75 12/12/24 16:54 72 17 98 12/12/24 16:20 36.7 C 91 H 22 107/77 99 Room Air Laboratory Results Laboratory Results Sodium 137 mmol/L (136-145) 12/12/24 16:34 Potassium 2.0 mmol/L (3.5-5.1) L* D 12/12/24 16:34 Chloride 106 mmol/L (98-107) 12/12/24 16:34 Carbon Dioxide 20 mmol/L (21-32) L 12/12/24 16:34 Anion Gap 11 (3-11) 12/12/24 16:34 BUN 10 mg/dl (6-23) 12/12/24 16:34 Creatinine 0.86 mg/dl (0.6-1.2) D 12/12/24 16:34 Est Cr Clr Drug Dosing 85.7 ml/min 12/12/24 16:34 eGFR 89.73 12/12/24 16:34 BUN/Creatinine Ratio 11.6 (10-20) 12/12/24 16:34 Glucose 136 mg/dl (70-99(Fasting)) H 12/12/24 16:34 Calcium 8.6 mg/dl (8.6-10.3) D 12/12/24 16:34 Magnesium 1.3 mg/dl (1.7-2.4) L 12/12/24 16:34 Diagnostic Findings Laboratory Results Sodium 137 mmol/L (136-145) 12/12/24 16:34 Potassium 2.0 mmol/L (3.5-5.1) L* D 12/12/24 16:34 Chloride 106 mmol/L (98-107) 12/12/24 16:34 Carbon Dioxide 20 mmol/L (21-32) L 12/12/24 16:34 Anion Gap 11 (3-11) 12/12/24 16:34 BUN 10 mg/dl (6-23) 12/12/24 16:34 Creatinine 0.86 mg/dl (0.6-1.2) D 12/12/24 16:34 Est Cr Clr Drug Dosing 85.7 ml/min 12/12/24 16:34 eGFR 89.73 12/12/24 16:34 BUN/Creatinine Ratio 11.6 (10-20) 12/12/24 16:34 Glucose 136 mg/dl (70-99(Fasting)) H 12/12/24 16:34 Calcium 8.6 mg/dl (8.6-10.3) D 12/12/24 16:34 Magnesium 1.3 mg/dl (1.7-2.4) L 12/12/24 16:34 Code Status & VTE Plan Code Status Full code VTE Prophylaxis Plan VTE Prophylaxis will be ordered: Yes PG Care Time/CCT Total # of Minutes Spent Total Time Spent with Patient: Total time spent is greater than 50% in coordination of care (as documented) at patient's floor/unit and/or counseling patient: Coding Level of Care Code 38882 INT INP/OBS CARE 3/75MIN Diagnoses Brain metastasis C79.31 Breast cancer metastasized to liver C50.919; C78.7 Hypokalemia due to excessive gastrointestinal loss of potassium E87.6 Hypomagnesemia E83.42 Hypoalbuminemia E88.09
[2024-12-12] MEDS: POTASSIUM CHLORIDE 10 MEQ TABCR PO STA (18:34)
[2024-12-12] MEDS: POTASSIUM CHLORIDE / WTR 10 MEQ/100 ML PLCT IV SCH ×2 (18:35→22:21)
[2024-12-12] MEDS: POTASSIUM CHLORIDE 20 MEQ/15 ML UDC PO STA (18:54)
--- NOTE | 2024-12-12 19:05 | Emergency Department Note ---
History of Present Illness General Chief Complaint: Abnormal Labs/Diagnostic Testing Stated Complaint: LOW CA, MG, K Time Seen by Provider: 12/12/24 16:26 History of Present Illness Provider Complaint: + abnormal lab Returns today for: + called because of abnormal lab/test Description of abnormal result: Low potassium, calcium and magnesium Associated symptoms: + nausea (Vomiting) and + other (Palpitations); no fever, no chest pain, no shortness of breath or no abdominal pain Home Medications Medication Instructions Recorded Confirmed Type breast pump #1 ea 05/08/22 12/06/24 Rx ascorbic acid (vitamin C) 500 mg 500 mg PO QAM 07/12/23 12/12/24 History tablet (Vitamin C) multivitamin 1 tab PO DAILY ##0 07/12/23 12/12/24 History prochlorperazine maleate 10 mg 10 mg PO QID PRN Nausea 07/12/23 12/12/24 History tablet (Compazine) fulvestrant 250 mg/5 mL 250 mg IM MONTHLY 10/09/23 12/12/24 History intramuscular syringe (Faslodex) tramadol 50 mg tablet 50 mg PO BID PRN Pain 10/21/23 12/12/24 History diphenoxylate-atropine 2.5 1 tab PO Q6H PRN Diarrhea 03/04/24 12/12/24 History mg-0.025 mg tablet (Lomotil) cholecalciferol (vitamin D3) 25 25 mcg PO DAILY 06/23/24 12/12/24 History mcg (1,000 unit) tablet (Vitamin D3) escitalopram oxalate 10 mg tablet 10 mg PO HS 11/19/24 12/12/24 History (Lexapro) nystatin 100,000 unit/gram topical 1 applic topical DAILY PRN 11/19/24 12/12/24 History powder (Nyamyc) Irritation ondansetron 8 mg disintegrating 8 mg PO TID PRN Nausea And Vomiting 11/19/24 12/12/24 History tablet oxycodone 10 mg tablet 10 mg PO Q8 PRN Pain 11/19/24 12/12/24 History calcium carbonate (Calcium 500) 500 mg PO BID 12/05/24 12/12/24 History alprazolam 0.5 mg tablet (Xanax) 0.5 mg PO Q8H PRN Anxiety 12/12/24 12/12/24 History Allergies Allergy/AdvReac Type Severity Reaction Status Date / Time No Known Drug Allergies Allergy Verified 12/06/24 12:35 Past Med/Surg History Problem List (Updated 12/12/24 @ 19:04 by Roberto Purcell MD) Hypocalcemia (Acute) Hypoalbuminemia Hypokalemia due to excessive gastrointestinal loss of potassium Brain metastasis (Chronic) Anemia (Acute) Elevated liver enzymes (Acute) Hypokalemia (Acute) Metastatic cancer (Acute) Breast cancer metastasized to liver Hypomagnesemia (Acute) Choledocholithiasis (Acute) Metastatic disease (Acute) Encounter for pre-operative examination History of cervical dysplasia Medical History Hx of nausea Breast cancer metastasized to liver Most recent chemo 11/22/24 per [place] record Elevated liver enzymes History of anemia History of anxiety Hx of jaundice Cancer with mets to liver Hypocalcemia Hypokalemia History of cervical dysplasia History of pneumonia (04/2023) 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, ER/Pr+, Her 2 neg History of COVID-19 11/2021- "mild symptoms" > resolved Missed Hx Surgical History Port-A-Cath in place (11/11/23) Insertion of Access Port with Fluoroscopy Right Internal Jugular Vein Hx of bilateral oophorectomy (10/2023) History of ERCP 07/14/23, [facility] Hx laparoscopic cholecystectomy Robotic Laparoscopic Cholecystectomy: Grade 1 view, MAC#3, ETT 7.0 at [facility] History of dilatation and curettage S/p bilateral myringotomy with tube placement S/P tympanoplasty Right x2 History of low transverse section x2, with tubal ligation S/P wisdom tooth extraction S/P LEEP of cervix Family History Grandmother (Maternal) Breast cancer Aunt Breast cancer Grandfather Heart murmur Father Family history of reaction to anesthesia nausea/vomiting Other Twins, both liveborn Social History Smoking Status: Never smoker Tobacco Type: Cigarettes Second Hand Exposure: Yes (hx as child); Do You Dip or Chew Tobacco: No; Hx Alcohol Use: No Hx Substance Use: Yes Substance Use Type Other:: edibles or topical Preferred Language: Turkish Communication Ability: Effective Visual Impairment: No Limitations Piper Installer Required: No Beliefs That Will Affect Care: None marital status: marital status details: Austin Almendarez (36) [phone] Current Living Situation: Spouse and Family Current Living Situation Comment: , 2 children 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 Feels Safe at Home: Yes Assistive Devices: Contacts and Glasses Physical Exam 2 Vital Signs: Vital Signs - 24 hr 12/12/24 16:20 12/12/24 16:54 12/12/24 17:00 Temperature 36.7 C Temperature Source Temporal Artery Sc an Pulse Rate 91 H 72 Pulse Rate from Sp O2 Sensor 71 Respiratory Rate 22 17 Respiratory Effort / Characteristics Non-Labored Sponta neous Respiratory Depth Normal Blood Pressure 107/77 112/75 Blood Pressure Maria Fernanda n 87 82 Pulse Oximetry 99 98 Oxygen Delivery Me thod Room Air Sepsis Recent Feve r Within 48 Hours No Sepsis New/Unexpla ined Change in Men dominguez Status No Sepsis Action Take n by Nursing No Action Required 12/12/24 17:00 12/12/24 17:00 12/12/24 17:00 Temperature Temperature Source Pulse Rate 71 Pulse Rate from Sp O2 Sensor 68 Respiratory Rate 23 Respiratory Effort / Characteristics Respiratory Depth Blood Pressure 112/75 112/75 Blood Pressure Maria Fernanda n 82 82 Pulse Oximetry 98 Oxygen Delivery Me thod Sepsis Recent Feve r Within 48 Hours Sepsis New/Unexpla ined Change in Men dominguez Status Sepsis Action Take n by Nursing 12/12/24 17:23 12/12/24 17:24 12/12/24 17:30 Temperature Temperature Source Pulse Rate 74 Pulse Rate from Sp O2 Sensor Respiratory Rate Respiratory Effort / Characteristics Respiratory Depth Blood Pressure 110/78 Blood Pressure Maria Fernanda n 82 Pulse Oximetry 99 Oxygen Delivery Me thod Room Air Sepsis Recent Feve r Within 48 Hours Sepsis New/Unexpla ined Change in Men dominguez Status Sepsis Action Take n by Nursing 12/12/24 17:39 12/12/24 17:42 12/12/24 17:51 Temperature Temperature Source Pulse Rate 71 71 67 Pulse Rate from Sp O2 Sensor 71 72 68 Respiratory Rate 23 22 20 Respiratory Effort / Characteristics Respiratory Depth Blood Pressure Blood Pressure Maria Fernanda n Pulse Oximetry 98 98 100 Oxygen Delivery Me thod Sepsis Recent Feve r Within 48 Hours Sepsis New/Unexpla ined Change in Men dominguez Status Sepsis Action Take n by Nursing 12/12/24 18:06 Temperature Temperature Source Pulse Rate 65 Pulse Rate from Sp O2 Sensor 66 Respiratory Rate 19 Respiratory Effort / Characteristics Respiratory Depth Blood Pressure 109/70 Blood Pressure Maria Fernanda n 83 Pulse Oximetry 99 Oxygen Delivery Me thod Sepsis Recent Feve r Within 48 Hours Sepsis New/Unexpla ined Change in Men dominguez Status Sepsis Action Take n by Nursing Physical Exam: Physical Exam NECK: Normal range of motion. Neck supple. No JVD present. CV: Normal rate, regular rhythm, normal heart sounds and intact distal pulses. There is no peripheral edema. Palpable radial pulses bue. PULM/CHEST: Effort normal and breath sounds normal. No respiratory distress. No stridor. no wheezes. no rales. ABD: The abdomen is soft. There is no tenderness. NEURO: Motor and sensation grossly intact. Course Course 1626: The patient was evaluated in room B8. A complete history and physical exam was performed Administered Medications Potassium Chloride (K Luiz / Wtr) 10 meq in 100 mls @ 100 mls/hr IV Q1H MIN Stop: 12/12/24 20:29 Last Admin: 12/12/24 18:35 Dose: 100 mls/hr Documented By: DONTAE Discontinued Medications Calcium Gluconate () 1,000 mg in 60 mls @ 240 mls/hr IV NOW STA Stop: 12/12/24 16:40 Last Infusion: 12/12/24 17:26 Dose: Infused Documented By: Admin: 12/12/24 16:34 Dose: 240 mls/hr Documented By: LM Magnesium Sulfate/Dextrose (Magnesium Sulfate / D5w) 1 gm in 100 mls @ 100 mls/hr IV Q1H MIN Stop: 12/12/24 18:26 Last Infusion: 12/12/24 18:30 Dose: Infused Documented By: Admin: 12/12/24 17:25 Dose: 100 mls/hr Documented By: Infusion: 12/12/24 17:25 Dose: Infused Documented By: Admin: 12/12/24 16:35 Dose: 100 mls/hr Documented By: LM Potassium Chloride (Potassium Chloride 10 Meq Tabcr) 40 meq PO NOW STA Stop: 12/12/24 17:25 Last Admin: 12/12/24 18:37 Dose: Not Given Documented By: DONTAE Potassium Chloride (Potassium Chloride 20 Meq/15 Ml Udc) 40 meq PO NOW STA Stop: 12/12/24 18:49 Last Admin: 12/12/24 18:54 Dose: 40 meq Documented By: DONTAE Medical Decision Making Medical Records Attestation: I reviewed the patient's medical records. External medical records reviewed. Patient had blood work done today which showed a potassium of 1.5 calcium of 5.1 magnesium 0.8. Laboratory Data Attestation: I reviewed the patient's lab results. 12/12/24 16:34 Lab Results 12/12/24 Range/Units 16:34 Sodium 137 (136-145) mmol/L Potassium 2.0 L* D (3.5-5.1) mmol/L Chloride 106 (98-107) mmol/L Carbon Dioxide 20 L (21-32) mmol/L Anion Gap 11 (3-11) BUN 10 (6-23) mg/dl Creatinine 0.86 D (0.6-1.2) mg/dl Est Cr Clr Drug Dosing 85.7 ml/min eGFR 89.73 BUN/Creatinine Ratio 11.6 (10-20) Glucose 136 H (70-99(Fasting)) mg/dl Calcium 8.6 D (8.6-10.3) mg/dl Magnesium 1.3 L (1.7-2.4) mg/dl ECG Data Attestation: I personally reviewed and interpreted this ECG as follows: Rate (beats per minute): 86 Rhythm: normal sinus Findings: no ST depression, no ST elevation or no prolonged QT Additional Comments: U waves present MDM Narrative Cardiac monitoring: An order was placed for continuous cardiac monitoring. The monitor shows a rate of 80 with sinus rhythm interpreted by me Patient's potassium 2 magnesium 1.3 calcium 8.6. Patient was treated with calcium gluconate 1 g in the emergency department. Her magnesium was then repleted with 2 g magnesium sulfate IV piggyback. Patient was then began on potassium repletion. [facility] Discussed case with Dr. Sauceda who stated patient can be admitted to PCU. Impression & Plan Hypokalemia, Hypomagnesemia, Hypocalcemia Critical Care Time Critical Care Time: Yes Total Critical Care Time: 36 I have personally spent greater than 36 minutes of critical care time in the direct management of this patient. This includes bedside care, interpretation of diagnostic studies, and testing, discussion with consultants, patient, and family members, and other required patient management activities. This 36 minutes is in excess of all separately billable procedures. Discharge Plan Visit Data Chief Complaint: Abnormal Labs/Diagnostic Testing Stated Complaint: LOW CA, MG, K ED Provider: Roberto Purcell Discharge Problem: Hypokalemia, Hypomagnesemia, Hypocalcemia Patient Disposition: Admitted As Inpatient Condition: Serious Forms Stand Alone Forms: My [facility] Prescriptions Prescriptions: No Action tramadol 50 mg tablet 50 mg PO BID PRN (Reason: Pain) alprazolam [Xanax] 0.5 mg tablet 0.5 mg PO Q8H PRN (Reason: Anxiety) diphenoxylate-atropine [Lomotil] 2.5-0.025 mg tablet 1 tab PO Q6H PRN (Reason: Diarrhea) (DME) breast pump Device See Rx Instructions .ROUTE .MEDSUPPLY Qty: 1 0RF Rx Instructions: Pt already has a breast pump multivitamin Tablet 1 tab PO DAILY Qty: 0 prochlorperazine maleate [Compazine] 10 mg tablet 10 mg PO QID PRN (Reason: Nausea) ascorbic acid (vitamin C) [Vitamin C] 500 mg Tablet 500 mg PO QAM cholecalciferol (vitamin D3) [Vitamin D3] 25 mcg (1,000 unit) Tablet 25 mcg PO DAILY fulvestrant [Faslodex] 250 mg/5 mL Syringe 250 mg IM MONTHLY Rx Instructions: last dose 2 weeks ago ondansetron 8 mg tablet,disintegrating 8 mg PO TID PRN (Reason: Nausea And Vomiting) nystatin [Nyamyc] 100,000 unit/gram powder 1 applic TOPICAL DAILY PRN (Reason: Irritation) escitalopram oxalate [Lexapro] 10 mg tablet 10 mg PO HS oxycodone 10 mg tablet 10 mg PO Q8 PRN (Reason: Pain) calcium carbonate [Calcium 500] 500 mg calcium (1,250 mg) tablet,chewable 500 mg PO BID Referrals Referrals: Davin Crews [Primary Care Provider] -
[2024-12-12] MEDS ORDERED: DIPHENOXYLATE/ATROPINE 2.5/0.025MG TAB PO PRN (21:07)
[2024-12-12] MEDS ORDERED: NON-FORMULARY MEDICATION (Breast Pump device) SCH (21:07)
[2024-12-12] MEDS ORDERED: ONDANSETRON INJ 2 MG/ML 2 ML VIAL IV PRN (21:07)
[2024-12-12] MEDS ORDERED: ACETAMINOPHEN 325 MG TAB PO PRN (21:07)
[2024-12-12] MEDS ORDERED: NYSTATIN POWDER 15GM BTL EXT PRN (21:07)
[2024-12-12] MEDS ORDERED: ONDANSETRON 8MG OD TAB PO PRN (21:07)
[2024-12-12] MEDS: ESCITALOPRAM OXALATE 10 MG TAB PO SCH (22:20)
[2024-12-12] MEDS: POTASSIUM CHLORIDE 40 MEQ in SODIUM CHLORIDE 0.9% 1,000 ML IV SCH (22:20)
[2024-12-12] MEDS: PROCHLORPERAZINE MALEATE 10 MG TAB PO PRN (22:20)
[2024-12-12] MEDS: CALCIUM CARBONATE 1250MG TAB PO SCH (22:20)
[2024-12-12 23:30] LABS: Anion Gap 8.0 (3-11); Blood Urea Nitrogen 6.0 mg/dl (6-23); Calcium 8.5 mg/dl (8.6-10.3); Carbon Dioxide 21.0 mmol/L (21-32); Chloride 109.0 mmol/L (98-107); Creatinine Clr Calc Pharmacy 109.0 ml/min; Glucose 94.0 mg/dl (70-99(Fasting)); Magnesium 2.0 mg/dl (1.7-2.4); Potassium 2.3 mmol/L (3.5-5.1); Sodium 138.0 mmol/L (136-145)
[2024-12-13 02:43] LABS: Anion Gap 7.0 (3-11); Blood Urea Nitrogen 5.0 mg/dl (6-23); Calcium 8.0 mg/dl (8.6-10.3); Carbon Dioxide 21.0 mmol/L (21-32); Chloride 112.0 mmol/L (98-107); Creatinine Clr Calc Pharmacy 114.1 ml/min; Glucose 80.0 mg/dl (70-99(Fasting)); Potassium 2.7 mmol/L (3.5-5.1); Sodium 140.0 mmol/L (136-145)
[2024-12-13] MEDS: POTASSIUM CHLORIDE CRTAB 20 MEQ TABCR PO STA (03:20)
[2024-12-13] MEDS: POTASSIUM CHLORIDE / WTR 10 MEQ/100 ML PLCT IV SCH (03:35)
[2024-12-13] MEDS: POTASSIUM CHLORIDE 20 MEQ/15 ML UDC PO STA (03:35)
[2024-12-13 06:33] LABS: Hematocrit (blood only) 24.9 % (37.0-47.0); Hemoglobin 8.2 g/dl (12.0-16.0); Immature Granulocytes # (auto) 0.08 K/uL (0.01-0.20); Immature Granulocytes % (auto) 1.3 %; Mean Corpuscular Hemoglobin 28.4 pg (25.0-34.0); Mean Corpuscular Volume 86.2 fL (80.0-100.0); Platelet Count 254 K/uL (130-400); RDW Standard Deviation 71.7 fL (36.4-46.3); Red Blood Count 2.89 M/uL (4.20-5.40); White Blood Count 6.13 K/ul (4.8-10.8)
[2024-12-13 06:51] LABS: Alanine Aminotransferase 24.0 U/L (7-52); Albumin Globulin Ratio 1.9 (0.9-2); Alkaline Phosphatase 107.0 U/L (34-104); Anion Gap 5.0 (3-11); Bilirubin,Total 0.9 mg/dl (0.2-1.0); Blood Urea Nitrogen 4.0 mg/dl (6-23); Calcium 7.8 mg/dl (8.6-10.3); Carbon Dioxide 21.0 mmol/L (21-32); Chloride 115.0 mmol/L (98-107); Creatinine Clr Calc Pharmacy 119.4 ml/min; Globulin 1.8 gm/dl (2.5-4.0); Glucose 84.0 mg/dl (70-99(Fasting)); Magnesium 1.9 mg/dl (1.7-2.4); Potassium 3.4 mmol/L (3.5-5.1); Sodium 141.0 mmol/L (136-145); Total Protein 5.3 gm/dl (6.0-8.3)
[2024-12-13 06:57] LABS: Anisocytosis Present; Ovalocytes 1+; Polychromasia 1+; Tear Drop Cells 1+
[2024-12-13 08:13] VITALS: RESP 18; TEMP 97.3; O2SAT 99
[2024-12-13] MEDS: MULTIVITAMIN TAB PO SCH (08:25)
[2024-12-13] MEDS: ASCORBIC ACID 500 MG TAB PO SCH (08:25)
[2024-12-13] MEDS: CHOLECALCIFEROL 25 MCG (1000 UNITS) TAB PO SCH (08:25)
[2024-12-13 11:10] VITALS: BP 108/75; PULSE 75
[2024-12-13 11:34] LABS: Anion Gap 3.0 (3-11); Blood Urea Nitrogen 3.0 mg/dl (6-23); Calcium 7.6 mg/dl (8.6-10.3); Carbon Dioxide 23.0 mmol/L (21-32); Chloride 115.0 mmol/L (98-107); Creatinine Clr Calc Pharmacy 129.9 ml/min; Glucose 82.0 mg/dl (70-99(Fasting)); Potassium 3.1 mmol/L (3.5-5.1); Sodium 141.0 mmol/L (136-145)
[2024-12-13] MEDS: CHOLESTYRAMINE LIGHT 4 GM PKT PO ONE (12:53)
--- NOTE | 2024-12-13 17:41 | Electrocardiogram Report ---
Test Reason : Blood Pressure : */* mmHG Vent. Rate : 86 BPM Atrial Rate : 86 BPM P-R Int : 174 ms QRS Dur : 80 ms QT Int : 402 ms P-R-T Axes : 79 35 109 degrees QTcB Int : 481 ms Normal sinus rhythm Nonspecific ST and T wave abnormality Abnormal ECG When compared with ECG of 19-Nov-2024 15:06, Criteria for Inferior infarct are no longer Present QT has lengthened Confirmed by Harley Robertson ([id number]) on 12/13/2024 5:41:29 PM Referred By: REFERRED SELF Confirmed By: Harley Robertson
--- NOTE | 2024-12-13 17:49 | Discharge Summary ---
Discharge Summary Date of Service December 13, 2024 Principal Dx & Hospital Course #1 = Principal Diagnosis (1) Brain metastasis: (2) Breast cancer metastasized to liver: (3) Hypokalemia due to excessive gastrointestinal loss of potassium: (4) Hypomagnesemia: (5) Hypoalbuminemia: Plan The patient is a 34-year-old female with metastatic breast cancer, currently undergoing chemotherapy next treatment will be 12/14/2024. Past medical history includes breast cancer with metastases to liver and brain, hypomagnesemia, history of cervical dysplasia. She had laboratories performed in the outpatient setting which revealed a potassium of 1.5 and magnesium of 0.8. Repeat laboratories in the emergency department revealed potassium of 2.0 and a magnesium level of 1.3. Patient has experienced some palpitations, but no near syncopal events. She reports some nausea with occasional small amounts of emesis. She does have persistent issues with diarrhea that she was told was secondary to chemotherapy. She reports that she takes Lomotil which can help symptoms, but because her to have constipation, and therefore does not like to take it. I have #electrolyte abnormalities these have been repleted with intravenous form as patient will be given potassium powder at home and she was instructed to use Metamucil or Citrucel as attempts to absorb water from her stools. She was also instructed to varied a dose of Lomotil to try to reduce her diarrhea Metastatic breast cancer to brain and liver- Patient due for chemotherapy I spoke to Dr. Carlson via electronic medications and we have postponed her chemotherapy to 12/14/2024 patient is understanding of this Hypoalbuminemia-certainly effect of her chronic illness Patient reports that she did start to take Premier protein shakes 1 a day. Ongoing diarrhea-in the past negative for infection Patient has had workup in the outpatient setting She reports that when she takes Lomotil causes constipation so she does not like to take it. Notes For Next Care Provider Continue to work on diarrhea as that output is with created admission with hypokalemia and hypomagnesemia likely multifaceted approach would be best Admission HPI Per Admitting Provider The patient is a 34-year-old female with metastatic breast cancer, currently undergoing chemotherapy which is due tomorrow. Past medical history includes breast cancer with metastases to liver and brain, hypomagnesemia, history of cervical dysplasia. She had laboratories performed in the outpatient setting which revealed a potassium of 1.5 and magnesium of 0.8. Repeat laboratories in the emergency department revealed potassium of 2.0 and a magnesium level of 1.3. Patient has experienced some palpitations, but no near syncopal events. She reports some nausea with occasional small amounts of emesis. She does have persistent issues with diarrhea that she was told was secondary to chemotherapy. She reports that she takes Lomotil which can help symptoms, but because her to have constipation, and therefore does not like to take it. Discharge Exam Awake alert no apparent distress agreeable to going home Discharge Plan Discharge Items Patient Disposition: Home - Self-Care Reason For Visit: HYPOKALEMIA,HYPOMAGNESEMIA Discharge Diagnosis: hypokalemia/hypomagnesemia diarrhea Condition on Discharge: Serious Activity: Resume your previous activity Non-emergency contact: Primary Care Provider and Oncologist Call non-emergency contact if: you have any medication questions Follow-up/Referrals: Davin Crews [Primary Care Provider] - Diet: Regular Addtl Attending Provider Instructions: please continue to hydrate use Metamucil or a fiber lax to help absorb water from your stool consider using partial doses of Imodium or Lomotil to slow your bowels follow up with your oncologist Pending Studies at Discharge: No Stand-Alone Forms: My [employer], Smoking Cessation Medications and DC Order Prescriptions: New potassium chloride 20 mEq packet 20 meq PO DAILY Qty: 30 5RF Continued tramadol 50 mg tablet 50 mg PO BID PRN (Reason: Pain) alprazolam [Xanax] 0.5 mg tablet 0.5 mg PO Q8H PRN (Reason: Anxiety) diphenoxylate-atropine [Lomotil] 2.5-0.025 mg tablet 1 tab PO Q6H PRN (Reason: Diarrhea) (DME) breast pump Device See Rx Instructions .ROUTE .MEDSUPPLY Qty: 1 0RF Rx Instructions: Pt already has a breast pump multivitamin Tablet 1 tab PO DAILY Qty: 0 prochlorperazine maleate [Compazine] 10 mg tablet 10 mg PO QID PRN (Reason: Nausea) ascorbic acid (vitamin C) [Vitamin C] 500 mg Tablet 500 mg PO QAM cholecalciferol (vitamin D3) [Vitamin D3] 25 mcg (1,000 unit) Tablet 25 mcg PO DAILY fulvestrant [Faslodex] 250 mg/5 mL Syringe 250 mg IM MONTHLY Rx Instructions: last dose 2 weeks ago ondansetron 8 mg tablet,disintegrating 8 mg PO TID PRN (Reason: Nausea And Vomiting) nystatin [Nyamyc] 100,000 unit/gram powder 1 applic TOPICAL DAILY PRN (Reason: Irritation) escitalopram oxalate [Lexapro] 10 mg tablet 10 mg PO HS oxycodone 10 mg tablet 10 mg PO Q8 PRN (Reason: Pain) calcium carbonate [Calcium 500] 500 mg calcium (1,250 mg) tablet,chewable 500 mg PO BID Discharge Orders: Discharge Order (Routine); Ordered 12/13/24 Ordered By: Mark Anthony Shah Admission Data Admit Date/Time: 12/12/24 18:14 Attending Provider: Mark Anthony Shah Admit Provider: Antonio Ludwig Primary Care Provider: Davin Crews Other Providers: Jacy Carlson; Mark Anthony Shah Other Interventions: Discharge Summary Assessment (RN) Last Done: 12/13/24 14:04 Hospital Stay Data Consultations 12/12/24 17:20 ED Decision to Admit Stat 12/12/24 18:14 Consult Oncology Routine Pending Results Patient Have Any Pending Studies at Discharge: No Discharge Instructions Given to Patient (Per Discharging Provider) please continue to hydrate use Metamucil or a fiber lax to help absorb water from your stool consider using partial doses of Imodium or Lomotil to slow your bowels follow up with your oncologist Total Time Total Time Spent Total Time Spent (In Minutes): It required greater than 30 minutes to prepare this patient for discharge. This includes coordination with aftercare for chemotherapy Coding Level of Care Code 58214 INP/OBS DISCH >30 MIN Diagnoses Brain metastasis C79.31 Breast cancer metastasized to liver C50.919; C78.7 Hypokalemia due to excessive gastrointestinal loss of potassium E87.6 Hypomagnesemia E83.42 Hypoalbuminemia E88.09
== END 2024-12-13 14:18 | disposition home or self-care (01) | DRG 641 ==
LOC: SUATTDRO → ED 16:17 → EDINP 18:14 → SUATTDRO 18:14 → 2S 20:52

== ENCOUNTER 2025-01-30 11:10 | Observation (INO) ==
--- NOTE | 2025-01-30 11:40 | Emergency Department Note ---
Impression & Plan Hematemesis, Thrombocytopenia ED Provider Note HISTORY OF PRESENT ILLNESS: Patient is a 34-year-old female presenting with hematemesis. Patient reports that she recently was admitted at [facility] for hematemesis. She reports she has an esophageal mass with a duodenal ulcer. She states that she was last given chemotherapy 5 days ago. She states that she woke up this morning and suddenly felt very ill and started vomiting and her vomit was bright red blood. She states that she had a left-sided nosebleed shortly after. She is not on any anticoagulation or antiplatelet therapy. Denies any fevers. Denies any abdominal pain. Currently reports she does not feel nauseous at this time. Denies any melena or hematochezia. Reports that she has had diarrhea, but that is expected with her chemotherapy. ROS: as above PHYSICAL EXAM: Constitutional: Patient appears in no acute distress. HENT: Head: Normocephalic and atraumatic. Eyes: EOMI, PERRL Mouth/Throat: Mucous membranes moist. Neck: Trachea midline. Neck supple. Cardiovascular: RRR, No murmurs, rubs or gallops. Intact distal pulses. Pulmonary/Chest: No respiratory distress. Breath sounds clear and equal bilaterally. No wheezes or rales. Abdominal: Abdomen soft, no tenderness, rebound or guarding. Musculoskeletal: No edema, tenderness or deformity noted. Skin: Warm and dry. No rash, erythema, pallor or cyanosis Psychiatric: Appropriate mood and affect for situation. Neurological: Alert and keenly responsive. CN II-XII grossly intact, moving all extremities equally and fully. MDM: - Vitals signs showed tachycardia - History obtained via patient. History as above. - Chronic conditions affecting care: metastatic breast cancer - Differential diagnoses include, but are not limited to: Anemia; thrombocytopenia; gastritis; esophagitis; peptic ulcer disease; bowel obstruction; bleeding gastric mass - Order placed for continuous cardiac monitoring. At this time, monitor showed rate of 70 bpm with normal sinus rhythm, per my interpretation. - External medical records reviewed. Oncology discharge summary dated 01/17/2025 was reviewed. Patient followed in their clinic for her metastatic adenocarcinoma of the breast. She underwent palliative radiation therapy to the cervical spine. - EKG image interpreted by myself showed normal sinus rhythm. Rate 83 bpm. QT 384. No acute ischemic changes. - Laboratory workup interpreted by myself showed normal WBC; chronic anemia (Hgb 10.6); thrombocytopenia (plt 26); normal PT/INR; hypokalemia (K 3.0); elevated lactate (2.8); normal lipase; chronic transaminitis (AST 101; ALT 77) - UA negative for infection - CT abdomen/pelvis with IV contrast showed mildly fluid-filled colon with interval development of diffuse colorectal wall thickening. Noted to have decrease in her hepatic and peritoneal/omental metastases. Gastroduodenal wall thickening present - Patient given 1L NS, 80 mg IV protonix and 4 mg IV morphine in ER. On reassessment, she reports she feels significantly improved. - Oncologist, Dr. Zepeda, came to evaluate the patient in the emergency department and he came to discuss the case with me at 14:27. He requested that the patient be transfused a unit of platelets. He reports that a platelet count should be repeated an hour posttransfusion. Reports that if her platelet count is over 50, she can be discharged home and follow-up with him in clinic tomorrow for repeat laboratory workup. He reports he will also be talking to his radiation colleagues about further radiation therapies for the patient's stomach mass. - Patient was consented for transfusion. - Transfused 1 unit of platelets - Repeat platelet count still thrombocytopenic at 37. I did reach out to Dr. Zepeda again at 17:25. He requested that the patient be given another unit of platelets. Plan will be to transfuse 1 more unit of platelets and repeat a platelet count 1 hour posttransfusion. If platelet count is above 50, the patient can be discharged with follow-up in clinic tomorrow. He states that if her platelet count is less than 50, she should be admitted to the hospitalist service for observation and further transfusions. - A second 1 unit of platelets was ordered. However, I was alerted by the blood pink at 17:31, that they do not have any further platelets in our inventory and they are waiting for another delivery of platelets that will arrive around 20:00 this evening. - Prior to disposition, care of patient was checked out to Dr. Davalos following a discussion of the patient's course. ASSESSMENT AND PLAN: Diagnosis: hematemesis; thrombocytopenia Past Med/Surg History Problem List (Updated 01/30/25 @ 16:22 by Linette Norwood MD) Thrombocytopenia (Acute) Hematemesis (Acute) Primary malignant neoplasm of left breast with metastasis to other site Hypocalcemia (Acute) Hypoalbuminemia Hypokalemia due to excessive gastrointestinal loss of potassium Brain metastasis (Chronic) Hypokalemia (Acute) Hypomagnesemia (Acute) Choledocholithiasis (Acute) Metastatic disease (Acute) History of cervical dysplasia Medical History Hx of nausea Breast cancer metastasized to liver Most recent chemo 11/22/24 per [place] record Elevated liver enzymes History of anemia History of anxiety Hx of jaundice Cancer with mets to liver Hypocalcemia Hypokalemia History of cervical dysplasia History of pneumonia (04/2023) 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, ER/Pr+, Her 2 neg History of COVID-19 11/2021- "mild symptoms" > resolved Missed Hx Surgical History Port-A-Cath in place (11/11/23) Insertion of Access Port with Fluoroscopy Right Internal Jugular Vein Hx of bilateral oophorectomy (10/2023) History of ERCP 07/14/23, [facility] Hx laparoscopic cholecystectomy Robotic Laparoscopic Cholecystectomy: Grade 1 view, MAC#3, ETT 7.0 at [facility] History of dilatation and curettage S/p bilateral myringotomy with tube placement S/P tympanoplasty Right x2 History of low transverse section x2, with tubal ligation S/P wisdom tooth extraction S/P LEEP of cervix Family History Grandmother (Maternal) Breast cancer Aunt Breast cancer Grandfather Heart murmur Father Family history of reaction to anesthesia nausea/vomiting Other Twins, both liveborn Social History Smoking Status: Never smoker Tobacco Type: Cigarettes Second Hand Exposure: No; Do You Dip or Chew Tobacco: No; Hx Alcohol Use: No Hx Substance Use: Yes Last Used Substance: Days (ago) Substance Use Type Other:: edibles or topical Preferred Language: Uzbek Communication Ability: Effective Visual Impairment: No Limitations Social Media Editor Required: No Beliefs That Will Affect Care: None marital status: marital status details: Asutin Almendarez (34) [phone] Current Living Situation: Family Current Living Situation Comment: and two children 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 Feels Safe at Home: Yes Assistive Devices: None Allergies Allergies Allergy/AdvReac Type Severity Reaction Status Date / Time No Known Drug Allergies Allergy Verified 01/24/25 09:39 seasonal Allergy Mild Uncoded 01/24/25 09:39 Home Meds Home Medications Medication Instructions Recorded Confirmed ascorbic acid (vitamin C) 500 mg 500 mg PO QAM 07/12/23 01/24/25 tablet (Vitamin C) multivitamin 1 tab PO DAILY ##0 07/12/23 01/24/25 prochlorperazine maleate 10 mg 10 mg PO QID PRN Nausea 07/12/23 01/24/25 tablet (Compazine) fulvestrant 250 mg/5 mL 250 mg IM MONTHLY 10/09/23 01/24/25 intramuscular syringe (Faslodex) tramadol 50 mg tablet 50 mg PO BID PRN Pain 10/21/23 01/24/25 diphenoxylate-atropine 2.5 1 tab PO Q6H PRN Diarrhea 03/04/24 01/24/25 mg-0.025 mg tablet (Lomotil) cholecalciferol (vitamin D3) 25 25 mcg PO DAILY 06/23/24 01/24/25 mcg (1,000 unit) tablet (Vitamin D3) escitalopram oxalate 10 mg tablet 10 mg PO HS 11/19/24 01/24/25 (Lexapro) nystatin 100,000 unit/gram topical 1 applic topical DAILY PRN 11/19/24 01/24/25 powder (Nyamyc) Irritation ondansetron 8 mg disintegrating 8 mg PO TID PRN Nausea And Vomiting 11/19/24 01/24/25 tablet oxycodone 10 mg tablet 10 mg PO Q8 PRN Pain 11/19/24 01/24/25 calcium carbonate (Calcium 500) 500 mg PO BID 12/05/24 01/24/25 alprazolam 0.5 mg tablet (Xanax) 0.5 mg PO Q8H PRN Anxiety 12/12/24 01/24/25 Previous Rx's Medication Instructions Recorded breast pump #1 ea 05/08/22 potassium chloride 20 mEq oral 20 meq PO DAILY #30 ea 12/13/24 packet Results & Data (ED) Vital Signs Vital Signs - 24 hr 01/30/25 11:16 01/30/25 11:51 01/30/25 11:54 Temperature 36.7 C Temperature Source Oral Pulse Rate 93 H 88 Pulse Rate [Apical] 80 Respiratory Rate 18 20 16 Respiratory Effort / Characteristics Non-Labored Non-Labored Spontaneous Respiratory Depth Normal Respiratory Pattern Regular Blood Pressure 116/80 118/81 Blood Pressure [Right Arm] 118/81 Blood Pressure Mean 92 92 Blood Pressure Mean [Right Arm] 93 Pulse Oximetry 97 98 99 Oxygen Delivery Method Room Air Room Air Sepsis Recent Fever Within 48 Hours No Sepsis New/Unexplained Change in Mental Status N/A Sepsis Action Taken by Nursing No Action Required 01/30/25 11:54 01/30/25 12:28 01/30/25 12:30 Temperature Temperature Source Pulse Rate 82 101 H 81 Pulse Rate [Apical] Respiratory Rate 16 16 Respiratory Effort / Characteristics Respiratory Depth Respiratory Pattern Blood Pressure 116/82 Blood Pressure [Right Arm] Blood Pressure Mean 96 Blood Pressure Mean [Right Arm] Pulse Oximetry 100 99 Oxygen Delivery Method Room Air Sepsis Recent Fever Within 48 Hours Sepsis New/Unexplained Change in Mental Status Sepsis Action Taken by Nursing 01/30/25 13:10 01/30/25 15:00 01/30/25 15:17 Temperature 36.8 C Temperature Source Oral Pulse Rate 67 Pulse Rate [Apical] 73 70 Respiratory Rate 16 16 16 Respiratory Effort / Characteristics Non-Labored Spontaneous Non-Labored Spontaneous Respiratory Depth Respiratory Pattern Blood Pressure 117/77 Blood Pressure [Right Arm] 115/71 Blood Pressure Mean 90 Blood Pressure Mean [Right Arm] 85 Pulse Oximetry 100 99 98 Oxygen Delivery Method Room Air Room Air Sepsis Recent Fever Within 48 Hours Sepsis New/Unexplained Change in Mental Status Sepsis Action Taken by Nursing 01/30/25 15:34 01/30/25 15:49 01/30/25 16:00 Temperature 37.1 C 36.7 C Temperature Source Oral Oral Pulse Rate 69 69 Pulse Rate [Apical] Respiratory Rate 16 14 Respiratory Effort / Characteristics Respiratory Depth Respiratory Pattern Blood Pressure 120/77 119/79 115/70 Blood Pressure [Right Arm] Blood Pressure Mean 91 92 82 Blood Pressure Mean [Right Arm] Pulse Oximetry 98 96 Oxygen Delivery Method Sepsis Recent Fever Within 48 Hours Sepsis New/Unexplained Change in Mental Status Sepsis Action Taken by Nursing 01/30/25 16:19 08/25/25 16:32 01/30/25 16:40 Temperature 37.2 C 36.8 C Temperature Source Oral Oral Pulse Rate 70 73 71 Pulse Rate [Apical] Respiratory Rate 19 14 19 Respiratory Effort / Characteristics Respiratory Depth Respiratory Pattern Blood Pressure 113/77 116/68 117/70 Blood Pressure [Right Arm] Blood Pressure Mean 89 84 85 Blood Pressure Mean [Right Arm] Pulse Oximetry 98 96 Oxygen Delivery Method Sepsis Recent Fever Within 48 Hours Sepsis New/Unexplained Change in Mental Status Sepsis Action Taken by Nursing 01/30/25 17:00 01/30/25 17:27 Temperature Temperature Source Pulse Rate 71 67 Pulse Rate [Apical] Respiratory Rate 16 20 Respiratory Effort / Characteristics Respiratory Depth Respiratory Pattern Blood Pressure 116/76 116/73 Blood Pressure [Right Arm] Blood Pressure Mean 82 87 Blood Pressure Mean [Right Arm] Pulse Oximetry Oxygen Delivery Method Sepsis Recent Fever Within 48 Hours Sepsis New/Unexplained Change in Mental Status Sepsis Action Taken by Nursing Laboratory Data 01/30/25 17:07 01/30/25 11:48 Lab Results 01/30/25 01/30/25 01/30/25 Range/Units 11:48 14:45 14:46 WBC 4.88 (4.8-10.8) K/ul RBC 3.69 L (4.20-5.40) M/uL Hgb 10.6 L (12.0-16.0) g/dl Hct 33.2 L (37.0-47.0) % MCV 90.0 (80.0-100.0) fL MCH 28.7 (25.0-34.0) pg MCHC 31.9 L (32.0-36.0) g/dL RDW Std Deviation 52.7 H (36.4-46.3) fL RDW Coeff of Ara 16.9 H (11.5-14.5) % Plt Count 26 L* (130-400) K/uL Neutrophils % (Manual) 94 % Lymphocytes % (Manual) 4 % Monocytes % (Manual) 2 % Neutrophils # (Manual) 4.59 (1.40-6.50) K/uL Total Absolute Neuts 4.59 (1.4-6.5) K/uL Lymphocytes # (Manual) 0.20 L (1.2-3.4) K/uL Total Abs Lymphocytes 0.20 L (1.2-3.4) K/uL Monocytes # (Manual) 0.10 L (0.11-0.59) K/uL Toxic Granulation 1+ Dohle Bodies 1+ Platelet Estimate Decreased L (Normal) Polychromasia 1+ Tear Drop Cells 1+ Ovalocytes 1+ PT 11.9 (9.0-12.0) Seconds INR 1.1 (0.9-1.1) Sodium 142 (136-145) mmol/L Potassium 3.0 L (3.5-5.1) mmol/L Chloride 105 (98-107) mmol/L Carbon Dioxide 26 (21-32) mmol/L Anion Gap 11 (3-11) BUN 8 (6-23) mg/dl Creatinine 0.58 L (0.6-1.2) mg/dl Est Cr Clr Drug Dosing 126.9 ml/min eGFR 120.20 BUN/Creatinine Ratio 13.8 (10-20) Glucose 79 (70-99(Fasting)) mg/dl Lactate 2.8 H* (0.4-2.0) mmol/L Calcium 9.2 (8.6-10.3) mg/dl Total Bilirubin 0.9 (0.2-1.0) mg/dl AST 101 H (13-39) U/L ALT 77 H (7-52) U/L Alkaline Phosphatase 92 (34-104) U/L Total Protein 6.6 (6.0-8.3) gm/dl Albumin 3.7 (3.4-5.0) gm/dl Globulin 2.9 (2.5-4.0) gm/dl Albumin/Globulin Ratio 1.3 (0.9-2) Lipase 31 (11-82) U/L Urine Color Yellow Urine Appearance Clear (Clear) Urine pH 7.5 (4.5-7.5) Ur Specific [place] 1.040 H (1.000-1.030) Urine Protein Negative (Negative) Urine Glucose (UA) Negative (Negative) Urine Ketones Negative (Negative) Urine Blood Negative (Negative) Urine Nitrite Negative (Negative) Urine Bilirubin Negative (Negative) Urine Urobilinogen Negative (Negative) Ur Leukocyte Esterase Negative (Negative) Urine Comment Blood Type A Positive Antibody Screen NEGATIVE 01/30/25 Range/Units 17:07 WBC (4.8-10.8) K/ul RBC (4.20-5.40) M/uL Hgb (12.0-16.0) g/dl Hct (37.0-47.0) % MCV (80.0-100.0) fL MCH (25.0-34.0) pg MCHC (32.0-36.0) g/dL RDW Std Deviation (36.4-46.3) fL RDW Coeff of Ara (11.5-14.5) % Plt Count 37 L (130-400) K/uL Neutrophils % (Manual) % Lymphocytes % (Manual) % Monocytes % (Manual) % Neutrophils # (Manual) (1.40-6.50) K/uL Total Absolute Neuts (1.4-6.5) K/uL Lymphocytes # (Manual) (1.2-3.4) K/uL Total Abs Lymphocytes (1.2-3.4) K/uL Monocytes # (Manual) (0.11-0.59) K/uL Toxic Granulation Dohle Bodies Platelet Estimate (Normal) Polychromasia Tear Drop Cells Ovalocytes PT (9.0-12.0) Seconds INR (0.9-1.1) Sodium (136-145) mmol/L Potassium (3.5-5.1) mmol/L Chloride (98-107) mmol/L Carbon Dioxide (21-32) mmol/L Anion Gap (3-11) BUN (6-23) mg/dl Creatinine (0.6-1.2) mg/dl Est Cr Clr Drug Dosing ml/min eGFR BUN/Creatinine Ratio (10-20) Glucose (70-99(Fasting)) mg/dl Lactate (0.4-2.0) mmol/L Calcium (8.6-10.3) mg/dl Total Bilirubin (0.2-1.0) mg/dl AST (13-39) U/L ALT (7-52) U/L Alkaline Phosphatase (34-104) U/L Total Protein (6.0-8.3) gm/dl Albumin (3.4-5.0) gm/dl Globulin (2.5-4.0) gm/dl Albumin/Globulin Ratio (0.9-2) Lipase (11-82) U/L Urine Color Urine Appearance (Clear) Urine pH (4.5-7.5) Ur Specific [place] (1.000-1.030) Urine Protein (Negative) Urine Glucose (UA) (Negative) Urine Ketones (Negative) Urine Blood (Negative) Urine Nitrite (Negative) Urine Bilirubin (Negative) Urine Urobilinogen (Negative) Ur Leukocyte Esterase (Negative) Urine Comment Blood Type Antibody Screen Administered Medications Discontinued Medications Sodium Chloride (Nss) 1,000 mls @ 999 mls/hr IV .Q1H1M ONE Stop: 01/30/25 13:15 Last Infusion: 01/30/25 13:39 Dose: Infused Documented By: Admin: 01/30/25 12:21 Dose: 999 mls/hr Documented By: JEB Pantoprazole Sodium 80 mg/ (Dextrose) 120 mls @ 480 mls/hr IV ONE STA Stop: 01/30/25 12:55 Last Infusion: 01/30/25 14:28 Dose: Infused Documented By: Admin: 01/30/25 13:57 Dose: 480 mls/hr Documented By: JEB Ioversol (Optiray 320 100ml) 90 ml IV ONCE ONE Stop: 01/30/25 12:51 Last Admin: 01/30/25 12:51 Dose: 90 ml Documented By: PAGE Morphine Sulfate (Morphine Sulfate 4 Mg/Ml 1 Ml Carp\\Vial) 4 mg IV NOW STA Stop: 01/30/25 13:45 Last Admin: 01/30/25 13:56 Dose: 4 mg Documented By: JEB Imaging Data Radiologist's Impression: Abdomen/Pelvis CT 01/30/25 11:38 CT SCAN OF THE ABDOMEN AND PELVIS WITH IV CONTRAST CLINICAL HISTORY: Metastatic breast cancer. Hematemesis. COMPARISON STUDY: CT of the abdomen and pelvis January 15, 2025. TECHNIQUE: Following the IV administration of 90 cc of Optiray 320, CT scan of the abdomen and pelvis is performed from the lung bases to the proximal femora. Images are reviewed in the axial, sagittal, and coronal planes. IV contrast was administered without complication. A dose lowering technique was utilized adhering to the principles of ALARA. CT DOSE: 785.02 mGy.cm FINDINGS: Asymmetric left breast skin and soft tissue thickening is partially imaged on this exam. The previously described left breast mass on CT of January 15, 2025 was not imaged on this exam. No pneumatosis, free air or portal venous gas is present. Moderate splenomegaly has mildly increased. Numerous hepatic lesions have mildly decreased in size since CT of January 15, 2025. Index lesion within the medial segment of the left hepatic lobe measures 4.9 x 4.3 cm, previously 5.5 x 5.4 cm. A segment 6 lesion on image 103 measures 3.2 cm, previously 3.5 cm. Nodularity of the liver surface is noted. There is trace perihepatic fluid. Adrenal glands, kidneys and pancreas are unremarkable. Mild wall thickening at the gastroesophageal junction is likely due to underdistention. There is also mild wall thickening of the distal stomach and proximal duodenum. A small and large bowel are mildly fluid-filled. There has been interval development of diffuse colorectal wall thickening with minimal adjacent stranding. There is no evidence for a bowel obstruction. Major vasculature is patent. Multiple omental nodules have decreased in size since CT of January 15, 2025. Index nodule within the omentum on image 155 measures 0.7 x 0.7 cm, previously 1 x 0.8 cm. The appearance of extensive skeletal metastases is unchanged by CT. IMPRESSION: 1. Mildly fluid-filled colon with interval development of diffuse colorectal wall thickening. The findings represent a nonspecific proctocolitis which may be infectious in etiology. Treatment related etiology is also within the differential. No bowel obstruction. 2. Mild decrease in hepatic and peritoneal/omental metastases consistent with a positive treatment response. 3. Nodularity of the liver surface. This may represent pseudocirrhosis. Mild increase in splenomegaly and possible varices. This may indicate portal hypertension. 4. Gastroduodenal wall thickening. This may be due to underdistention although is nonspecific and could be correlated with endoscopy as indicated. 5. No change in appearance of skeletal metastases. ACT 112: Negative or not required by law. Electronically signed by: Daniel Pat M.D. 01/30/2025 1:18 PM Discharge Plan Visit Data Chief Complaint: Vomiting Stated Complaint: VOMITING BLOOD THIS AM ED Provider: Linette Norwood Discharge Problem: Hematemesis, Thrombocytopenia Patient Disposition: Still a Patient Condition: Fair Discharge Instructions Krames/Other Patient Handouts: Thrombocytopenia Activity Restrictions/Additional Instructions: Your laboratory workup in the emergency department did show that your platelet count was significantly low. You were given a transfusion of 2 units of platelets. Your CT scan of your abdomen/pelvis did show that the metastases in your abdomen seem to be responsive to therapy, as they appear slightly smaller than previous imaging. As discussed, you should follow-up with Dr. Zepeda's clinic for repeat laboratory workup tomorrow to make sure you do not need any further transfusions. He is also going to contact his radiation colleagues to discuss further radiation of the masses in your abdomen. Return to the emergency department if you have any further episodes of bleeding, if you develop a rash, chest pain or shortness of breath, lightheadedness or dizziness, or any new or worsening symptoms. Forms Stand Alone Forms: My [facility] Prescriptions Prescriptions: No Action tramadol 50 mg tablet 50 mg PO BID PRN (Reason: Pain) alprazolam [Xanax] 0.5 mg tablet 0.5 mg PO Q8H PRN (Reason: Anxiety) diphenoxylate-atropine [Lomotil] 2.5-0.025 mg tablet 1 tab PO Q6H PRN (Reason: Diarrhea) (DME) breast pump Device See Rx Instructions .ROUTE .MEDSUPPLY Qty: 1 0RF Rx Instructions: Pt already has a breast pump multivitamin Tablet 1 tab PO DAILY Qty: 0 prochlorperazine maleate [Compazine] 10 mg tablet 10 mg PO QID PRN (Reason: Nausea) ascorbic acid (vitamin C) [Vitamin C] 500 mg Tablet 500 mg PO QAM cholecalciferol (vitamin D3) [Vitamin D3] 25 mcg (1,000 unit) Tablet 25 mcg PO DAILY fulvestrant [Faslodex] 250 mg/5 mL Syringe 250 mg IM MONTHLY Rx Instructions: last dose 2 weeks ago ondansetron 8 mg tablet,disintegrating 8 mg PO TID PRN (Reason: Nausea And Vomiting) nystatin [Nyamyc] 100,000 unit/gram powder 1 applic TOPICAL DAILY PRN (Reason: Irritation) escitalopram oxalate [Lexapro] 10 mg tablet 10 mg PO HS oxycodone 10 mg tablet 10 mg PO Q8 PRN (Reason: Pain) calcium carbonate [Calcium 500] 500 mg calcium (1,250 mg) tablet,chewable 500 mg PO BID potassium chloride 20 mEq packet 20 meq PO DAILY Qty: 30 5RF Referrals Referrals: Davin Crews [Outside Practitioners] -
[2025-01-30] MEDS: SODIUM CHLORIDE 0.9% 1,000 ML IV ONE (12:21)
[2025-01-30 12:33] LABS: Alanine Aminotransferase 77.0 U/L (7-52); Albumin Globulin Ratio 1.3 (0.9-2); Alkaline Phosphatase 92.0 U/L (34-104); Anion Gap 11.0 (3-11); Bilirubin,Total 0.9 mg/dl (0.2-1.0); Blood Urea Nitrogen 8.0 mg/dl (6-23); Calcium 9.2 mg/dl (8.6-10.3); Carbon Dioxide 26.0 mmol/L (21-32); Chloride 105.0 mmol/L (98-107); Creatinine Clr Calc Pharmacy 126.9 ml/min; Globulin 2.9 gm/dl (2.5-4.0); Glucose 79.0 mg/dl (70-99(Fasting)); Lipase 31.0 U/L (11-82); Potassium 3.0 mmol/L (3.5-5.1); Sodium 142.0 mmol/L (136-145); Total Protein 6.6 gm/dl (6.0-8.3)
[2025-01-30 12:37] LABS: Hematocrit (blood only) 33.2 % (37.0-47.0); Hemoglobin 10.6 g/dl (12.0-16.0); Mean Corpuscular Hemoglobin 28.7 pg (25.0-34.0); Mean Corpuscular Volume 90.0 fL (80.0-100.0); RDW Standard Deviation 52.7 fL (36.4-46.3); Red Blood Count 3.69 M/uL (4.20-5.40); White Blood Count 4.88 K/ul (4.8-10.8)
[2025-01-30 12:40] LABS: INR 1.1 (0.9-1.1); Prothrombin Time 11.9 Seconds (9.0-12.0)
[2025-01-30 12:47] LABS: ALC (manual) 0.20 K/uL (1.2-3.4); ANC (manual) 4.59 K/uL (1.4-6.5); Dohle Bodies 1+; Ovalocytes 1+; Platelet Count 26 K/uL (130-400); Polychromasia 1+; Tear Drop Cells 1+; Toxic Granulation 1+
[2025-01-30] MEDS: OPTIRAY 320 100ml IV ONE (12:51)
--- NOTE | 2025-01-30 13:20 | CT Scan Report ---
CT SCAN OF THE ABDOMEN AND PELVIS WITH IV CONTRAST CLINICAL HISTORY: Metastatic breast cancer. Hematemesis. COMPARISON STUDY: CT of the abdomen and pelvis January 15, 2025. TECHNIQUE: Following the IV administration of 90 cc of Optiray 320, CT scan of the abdomen and pelvi s is performed from the lung bases to the proximal femora. Images are reviewed in the axial, sagittal , and coronal planes. IV contrast was administered without complication. A dose lowering technique wa s utilized adhering to the principles of ALARA. CT DOSE: 785.02 mGy.cm FINDINGS: Asymmetric left breast skin and soft tissue thickening is partially imaged on this exam. Th e previously described left breast mass on CT of January 15, 2025 was not imaged on this exam. No pneu matosis, free air or portal venous gas is present. Moderate splenomegaly has mildly increased. Reshma us hepatic lesions have mildly decreased in size since CT of January 15, 2025. Index lesion within the medial segment of the left hepatic lobe measures 4.9 x 4.3 cm, previously 5.5 x 5.4 cm. A segment 6 lesion on image 103 measures 3.2 cm, previously 3.5 cm. Nodularity of the liver surface is noted. The re is trace perihepatic fluid. Adrenal glands, kidneys and pancreas are unremarkable. Mild wall thick ening at the gastroesophageal junction is likely due to underdistention. There is also mild wall thic kening of the distal stomach and proximal duodenum. A small and large bowel are mildly fluid-filled. There has been interval development of diffuse colorectal wall thickening with minimal adjacent stran ding. There is no evidence for a bowel obstruction. Major vasculature is patent. Multiple omental nod ules have decreased in size since CT of January 15, 2025. Index nodule within the omentum on image 155 measures 0.7 x 0.7 cm, previously 1 x 0.8 cm. The appearance of extensive skeletal metastases is unc hanged by CT. IMPRESSION: 1. Mildly fluid-filled colon with interval development of diffuse colorectal wall thickening. The fin dings represent a nonspecific proctocolitis which may be infectious in etiology. Treatment related et iology is also within the differential. No bowel obstruction. 2. Mild decrease in hepatic and peritoneal/omental metastases consistent with a positive treatment re sponse. 3. Nodularity of the liver surface. This may represent pseudocirrhosis. Mild increase in splenomegaly and possible varices. This may indicate portal hypertension. 4. Gastroduodenal wall thickening. This may be due to underdistention although is nonspecific and cou ld be correlated with endoscopy as indicated. 5. No change in appearance of skeletal metastases. ACT 112: Negative or not required by law. Electronically signed by: Daniel Pat M.D. 01/30/2025 1:18 PM
[2025-01-30] MEDS: MoRPHine SULFATE 4 MG/ML 1 ML CARP\\VIAL IV STA ×2 (13:56→20:38)
[2025-01-30] MEDS ORDERED: SODIUM CHLORIDE 0.9% 100 ML IV PRN ×2 (14:32→17:24)
[2025-01-30 15:08] LABS: Appearance Urine Clear (Clear); Glucose Urine UA Negative (Negative)
[2025-01-30 17:22] LABS: Platelet Count 37 K/uL (130-400)
--- NOTE | 2025-01-30 17:51 | Emergency Department Note ---
ED Visit Note The patient was taken in signout from [facility] at the change of shift. Please see that note for details. The patient was pending 2nd unit of platelets in the setting of being seen emergency department with thrombocytopenia of 26K in the setting of metastatic breast cancer on chemo-radiation therapy. The patient had epistaxis prior to arrival but this had resolved spontaneously. The patient was given 1 unit of platelets with improvement to 37K. Case discussed with Dr. Zepeda, hematology oncology and recommendations are to transfuse second unit of platelets to ensure improvement to 50K. He will follow-up with patient tomorrow for continued monitoring. Second unit of platelets was ordered and is pending delivery at 1999. Anticipated plan for transfusion and repeat lab draw to check platelets one hour after transfusion. Discharge if at goal. Of note, patient did prefer discharge if possible as she wanted to be able to see her daughter o ff for her first day of kindergarten. Second unit of platelets transfused and CBC subsequently repeated 1 hour thereafter. Unfortunately platelet count declined from 37K-32K and was confirmed on repeat at 34K. Hemoglobin also did decline to 8.4 and remained stable at 8.6. Findings were reviewed with Dr. Zepeda who did recommend admission to the hospital for additional treatment to reach goal of 50K platelet level. I did review recommendations with the patient at the bedside and she did agree with plan for admission. A third unit of platelets was ordered. Case was discussed with Dr. Ludwig, [facility] hospitalist, who will evaluate the patient for admission. Further management per admitting team. .
[2025-01-30 22:35] LABS: Hematocrit (blood only) 26.2 % (37.0-47.0); Hemoglobin 8.4 g/dl (12.0-16.0)
[2025-01-30 23:00] LABS: ALC (manual) 0.51 K/uL (1.2-3.4); ANC (manual) 3.02 K/uL (1.4-6.5); Dohle Bodies 1+; Mean Corpuscular Hemoglobin 29.0 pg (25.0-34.0); Mean Corpuscular Volume 90.3 fL (80.0-100.0); Platelet Count 32 K/uL (130-400); RDW Standard Deviation 54.7 fL (36.4-46.3); Red Blood Count 2.90 M/uL (4.20-5.40); Tear Drop Cells 1+; White Blood Count 3.64 K/ul (4.8-10.8)
[2025-01-30] MEDS: ONDANSETRON INJ 2 MG/ML 2 ML VIAL IV STA (23:33)
[2025-01-31 00:24] LABS: Dohle Bodies 1+; Hematocrit (blood only) 26.5 % (37.0-47.0); Hemoglobin 8.6 g/dl (12.0-16.0); Immature Granulocytes # (auto) 0.27 K/uL (0.01-0.20); Immature Granulocytes % (auto) 7.5 %; Mean Corpuscular Hemoglobin 29.2 pg (25.0-34.0); Mean Corpuscular Volume 89.8 fL (80.0-100.0); Ovalocytes 1+; Platelet Count 34 K/uL (130-400); RDW Standard Deviation 53.8 fL (36.4-46.3); Red Blood Count 2.95 M/uL (4.20-5.40); White Blood Count 3.60 K/ul (4.8-10.8)
[2025-01-31] MEDS ORDERED: SODIUM CHLORIDE 0.9% 100 ML IV PRN ×3 (00:52→13:38)
--- NOTE | 2025-01-31 01:35 | History & Physical Report ---
Date of Service January 31, 2025 Assessment & Plan (1) Chemotherapy-induced thrombocytopenia: (2) Hematemesis: (3) Hypokalemia: (4) Primary malignant neoplasm of left breast with metastasis to other site: Plan Patient is a 34-year-old female with 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 Patient recently was admitted to [facility] due to hematemesis in which she underwent EGD that showed esophageal and duodenal ulcers. Patient presented to the ER today after 1 episode of hematemesis followed by an episode of epi taxis, relieved after approximately 30 minutes. No recurrence of either symptoms since arrival to ED. Patient was found to have a platelet count of 26 and was transfused 2 units of platelets in the ED which brought her platelets up to 34. On-call rn clinical trials recommended her come in for admission given goal of 50 not met for her platelet count. [facility] records reviewed - EGD revealed esophageal ulcer with stigmata of recent bleeding, hemostatic spray applied. Gastritis with hemorrhage. Acquired duodenal stenosis. Nonbleeding duodenal ulcer with no signs of bleeding, hemostatic spray applied. Evidence of likely eroding mass into the duodenal bulb with bleeding on contact. She was started on Protonix 40 Mg twice daily as well as as needed antiemetics. Recommended no further endoscopic evaluations or therapies recommended due to severity of ulceration, severity of ulcerated stenosis in the setting of mass which is not amenable to stenting. #Chemotherapy-induced thrombocytopenia - most recent chemotherapy treatment 01/26. Platelet count 26 on arrival, improved to 34 units of platelets. Hgb 10.1 -> 8.6, Hct 30.4 -> 26.5. 1 episode of hematemesis and epi taxis, since resolved. Peripheral smear ordered Third unit of platelets ordered by ED Consult hematology, could consider steroid dosing Trend CBC No chemical VTE PPx #Hematemesis recent EGD at [facility] as noted above. H&H stable as above, treating thrombocytopenia. AP CT notes possible esophageal varices. IV Protonix twice daily ordered Zofran as needed - start Carafate on admission Continue clear liquid diet however will hold all p.o. medications GI consulted #Hypokalemia chronic, baseline 3.3. On chronic daily p.o. supplement. Renal function stable. Magnesium ordered, will provide replete if less than 2 - 4 bags IV K rider ordered - hold oral potassium as can contribute to GI upset - trend BMP #dehydration - poor p.o. intake 01/30 after vomiting and being in ED. Suspect elevated lactate of 2.82 2/2 dehydration. Received 1L NSS bolus in ED Continue with LR at 80 mL/hour #Breast cancer with metastasis to spine, liver, and brain undergoing current chemotherapy and radiation (gemcitabine and carboplatin) - most recent chemotherapy 01/26. Follows with Dr. Zepeda. Mildly elevated transaminases. Chemotherapy induced thrombocytopenia as above. Hematology consulted Holding p.o. oxycodone as needed for cancer-related pain; transition to morphine 2/4 Mg IV as needed Zofran as needed #mental health - holding lexapro and alprazolam #Incidental findingAP CT noted possible nonspecific proctocolitis. Patient is completely asymptomatic. 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 Patient recently was admitted to [facility] due to hematemesis in which she underwent EGD that showed esophageal and duodenal ulcers. Patient presented to the ER today after 1 episode of hematemesis followed by an episode of epi taxis, relieved after approximately 30 minutes. No recurrence of either symptoms since arrival to ED. Patient was found to have a platelet count of 26 and was transfused 2 units of platelets in the ED which brought her platelets up to 34. On-call rn clinical trials recommended her come in for admission given goal of 50 not met for her platelet count. Patient seen at bedside. Patient had chemotherapy on . She typically has nausea and vomiting associated with this and had a episode of vomiting this morning with significant amount of hematemesis feeling the trash can. She denies any current nausea and has had 1 episode of vomiting since that did not have any blood in it. She also had an episode of a nosebleed after the vomiting episode which was resolved in about 20 minutes, it was described as bright red blood draining from her nostrils. Patient stated she was recently admitted to [facility] for GI bleed in which they found an ulcer on EGD approximately 2 weeks ago. She was started on Protonix at this time. She denies any current dizziness, lightheadedness, headaches, chest pain, shortness of breath, abdominal pain. She stated she has never had a platelet transfusion before but has had blood and iron. She did not get any of her home medications today due to the nausea. She wishes to be full code. [facility] records reviewed - EGD revealed esophageal ulcer with stigmata of recent bleeding, hemostatic spray applied. Gastritis with hemorrhage. Acquired duodenal stenosis. Nonbleeding duodenal ulcer with no signs of bleeding, hemostatic spray applied. Evidence of likely eroding mass into the duodenal bulb with bleeding on contact. She was started on Protonix 40 Mg twice daily as well as as needed antiemetics. Recommended no further endoscopic evaluations or therapies recommended due to se verity of ulceration, severity of ulcerated stenosis in the setting of mass which is not amenable to stenting. Allergies Allergy/AdvReac Type Severity Reaction Status Date / Time No Known Drug Allergies Allergy Verified 01/24/25 09:39 seasonal Allergy Mild Uncoded 01/24/25 09:39 Home Medications Medication Instructions Recorded Confirmed Type breast pump #1 ea 05/08/22 01/24/25 Rx ascorbic acid (vitamin C) 500 mg 500 mg PO QAM 07/12/23 01/24/25 History tablet (Vitamin C) multivitamin 1 tab PO DAILY ##0 07/12/23 01/24/25 History prochlorperazine maleate 10 mg 10 mg PO QID PRN Nausea 07/12/23 01/24/25 History tablet (Compazine) fulvestrant 250 mg/5 mL 250 mg IM MONTHLY 10/09/23 01/24/25 History intramuscular syringe (Faslodex) tramadol 50 mg tablet 50 mg PO BID PRN Pain 10/21/23 01/24/25 History diphenoxylate-atropine 2.5 1 tab PO Q6H PRN Diarrhea 03/04/24 01/24/25 History mg-0.025 mg tablet (Lomotil) cholecalciferol (vitamin D3) 25 25 mcg PO DAILY 06/23/24 01/24/25 History mcg (1,000 unit) tablet (Vitamin D3) escitalopram oxalate 10 mg tablet 10 mg PO HS 11/19/24 01/24/25 History (Lexapro) nystatin 100,000 unit/gram topical 1 applic topical DAILY PRN 11/19/24 01/24/25 History powder (Nyamyc) Irritation ondansetron 8 mg disintegrating 8 mg PO TID PRN Nausea And Vomiting 11/19/24 01/24/25 History tablet oxycodone 10 mg tablet 10 mg PO Q8 PRN Pain 11/19/24 01/24/25 History calcium carbonate (Calcium 500) 500 mg PO BID 12/05/24 01/24/25 History alprazolam 0.5 mg tablet (Xanax) 0.5 mg PO Q8H PRN Anxiety 12/12/24 01/24/25 History potassium chloride 20 mEq oral 20 meq PO DAILY #30 ea 12/13/24 01/24/25 Rx packet Past Med/Surg History Problem List (Updated 01/31/25 @ 02:19 by Emma Bah PA-C) Chemotherapy-induced thrombocytopenia Thrombocytopenia (Acute) Hematemesis (Acute) Primary malignant neoplasm of left breast with metastasis to other site Hypocalcemia (Acute) Hypoalbuminemia Hypokalemia due to excessive gastrointestinal loss of potassium Brain metastasis (Chronic) Hypokalemia (Acute) Hypomagnesemia (Acute) Choledocholithiasis (Acute) Metastatic disease (Acute) History of cervical dysplasia Medical History Hx of nausea Breast cancer metastasized to liver [facility] Elevated liver enzymes History of anemia History of anxiety Hx of jaundice Cancer with mets to liver Hypocalcemia Hypokalemia History of cervical dysplasia History of pneumonia (04/2023) 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, ER/Pr+, Her 2 neg History of COVID-19 11/2021- "mild symptoms" > resolved Missed Hx Surgical History Port-A-Cath in place (11/11/23) Insertion of Access Port with Fluoroscopy Right Internal Jugular Vein Hx of bilateral oophorectomy (10/2023) History of ERCP 07/14/23, [facility] Hx laparoscopic cholecystectomy Robotic Laparoscopic Cholecystectomy: Grade 1 view, MAC#3, ETT 7.0 at [facility] History of dilatation and curettage S/p bilateral myringotomy with tube placement S/P tympanoplasty Right x2 History of low transverse section x2, with tubal ligation S/P wisdom tooth extraction S/P LEEP of cervix Family History Grandmother (Maternal) Breast cancer Aunt Breast cancer Grandfather Heart murmur Father Family history of reaction to anesthesia nausea/vomiting Other Twins, both liveborn Social History Smoking Status: Never smoker Tobacco Type: Cigarettes Second Hand Exposure: No; Do You Dip or Chew Tobacco: No; Hx Alcohol Use: No Hx Substance Use: Yes Last Used Substance: Days (ago) Substance Use Type Other:: edibles or topical Preferred Language: Vietnamese Communication Ability: Effective Visual Impairment: No Limitations Beer Brewer Required: No Beliefs That Will Affect Care: None marital status: marital status details: Austin Almendarez (36) [phone] Current Living Situation: Family Current Living Situation Comment: and two children 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 Non-toxic appearing. HEENT- EOMI, mucous membranes dry. Hearing grossly intact. Heart-normal S1 and S2. No murmurs, rubs or gallops. Lungs-clear bilaterally, no respiratory distress, no accessory muscle use. Abdomen-normal bowel sounds and soft. No ascites noted. Non-tender. Extremities- no clubbing, cyanosis, or edema. Rheumatologic-normal range of motion. Psychiatric-normal affect. Results & Data Results & Data Vital Signs (Past 12 Hours) Vital Signs Temp Pulse Pulse Resp BP BP Pulse Ox 01/31/25 01:30 36.8 C 67 18 110/71 96 01/31/25 01:15 67 17 117/72 96 01/31/25 01:15 36.9 C 75 16 117/72 99 01/31/25 01:00 70 18 112/67 96 01/31/25 00:36 71 16 95 01/31/25 00:00 66 18 117/72 99 01/31/25 00:00 69 16 117/72 98 01/30/25 23:33 74 16 117/76 98 01/30/25 23:30 75 21 117/76 96 01/30/25 23:00 67 19 112/70 99 01/30/25 22:30 69 21 123/76 98 01/30/25 22:15 67 15 119/72 97 01/30/25 22:00 71 15 119/71 98 01/30/25 22:00 37 C 01/30/25 21:45 75 15 123/71 99 01/30/25 21:30 74 17 125/74 98 01/30/25 21:19 37.1 C 75 17 115/77 98 01/30/25 21:04 37 C 68 17 127/77 99 01/30/25 21:00 66 17 127/77 99 01/30/25 20:45 71 19 114/76 100 01/30/25 20:45 37 C 70 15 114/76 98 01/30/25 20:00 68 17 134/74 98 01/30/25 20:00 61 16 134/74 98 01/30/25 19:00 71 17 108/72 98 01/30/25 19:00 65 15 108/72 98 01/30/25 18:10 71 21 112/71 01/30/25 18:00 70 22 122/79 01/30/25 17:40 70 23 116/77 01/30/25 17:30 60 22 124/74 01/30/25 17:27 67 20 116/73 01/30/25 17:00 71 16 116/76 01/30/25 16:40 71 19 117/70 01/30/25 16:32 36.8 C 73 14 116/68 96 01/30/25 16:19 37.2 C 70 19 113/77 98 01/30/25 16:00 115/70 01/30/25 15:49 36.7 C 69 14 119/79 96 01/30/25 15:34 37.1 C 69 16 120/77 98 01/30/25 15:17 36.8 C 67 16 117/77 98 01/30/25 15:00 70 16 99 O2 Del Method O2 Flow Rate 01/31/25 01:30 01/31/25 01:15 Room Air 01/31/25 01:15 0 01/31/25 01:00 Room Air 01/31/25 00:36 Room Air 01/31/25 00:00 Room Air 01/31/25 00:00 Room Air 01/30/25 23:33 Room Air 01/30/25 23:30 Room Air 01/30/25 23:00 Room Air 01/30/25 22:30 Room Air 01/30/25 22:15 Room Air 01/30/25 22:00 Room Air 01/30/25 22:00 01/30/25 21:45 Room Air 01/30/25 21:30 Room Air 01/30/25 21:19 01/30/25 21:04 01/30/25 21:00 Room Air 01/30/25 20:45 Room Air 01/30/25 20:45 01/30/25 20:00 Room Air 01/30/25 20:00 Room Air 01/30/25 19:00 Room Air 01/30/25 19:00 Room Air 01/30/25 18:10 01/30/25 18:00 01/30/25 17:40 01/30/25 17:30 01/30/25 17:27 01/30/25 17:00 01/30/25 16:40 01/30/25 16:32 01/30/25 16:19 01/30/25 16:00 01/30/25 15:49 01/30/25 15:34 01/30/25 15:17 01/30/25 15:00 Room Air Laboratory Results reviewed CBC, CMP, PT/INR, lactate, UA, type and screen Diagnostic Findings reviewed AP CT Medications Administered ED - 3 U platelets, 1L NSS bolus, morphine 4mg IV x 2, Protonix 80mg IV, zofran 4mg IV ECG Additional Comments: ordered Code Status & VTE Plan Code Status full code VTE Prophylaxis Plan VTE Prophylaxis will be ordered: Yes Supervising Physician Co-Signing Physician Notes Attending addendum: I have physically seen this patient, have supervised the EDDY's activities, and agree with the H&P unless as otherwise noted. Assessment and Plan: The patient is a 34-year-old female with past medical history including metastatic breast cancer to spine, liver and brain currently undergoing chemotherapy. She was recently admitted to [facility] due to hematemesis in which he underwent EGD that showed esophageal and duodenal ulcers. Patient presented to the ER today after 1 episode of hematemesis at home, followed by an episode of epistaxis, which spontaneously resolved after 30 minutes. She was found to have a platelet count of 26, and per recommendations of oncology, patient is now receiving her third bag of platelets, with target platelet count of 50. At this point after 2 units of platelets, her count is up to 34. Patient had no further symptoms in the ED, and [facility] in the ED, for continued treatment of platelets infusions and GI consult for the a.m. Regarding hematemesis. #Hematemesis/esophageal ulcers/duodenal ulcers- Review of records from [facility] EGD revealed an esophageal ulcer with stigmata of recent bleeding, and hemostatic spray was applied. Gastritis with hemorrhage was seen. Acquired duodenal stenosis. Nonbleeding duodenal ulcer with no signs of bleeding. Hemostatic spray applied. Evidence of likely eroding mass into the duodenal bulb with bleeding on contact. She was placed on Protonix 40 mg IV twice daily as well as antiemetics during that hospitalization. [facility] recommended no further endoscopic evaluations or therapies due to severity of ulceration, severity of ulcerated stenosis in the setting of mass which is not amenable to stenting. Protonix 80 mg IV given by the ED. Protonix 40 mg IV twice daily, with dose now Avoid famotidine due to possible worsening of platelets Add Carafate Patient tolerated clear liquid diet throughout the day while in the ED Consult gastroenterology #Chemotherapy-induced thrombocytopenia- Platelet count was 26 on arrival. Hematology has given a goal of 50. She has received 2 units of platelets to this point, with follow-up platelet count 34. She is to receive a third unit of platelets and will recheck platelets after that transfusion. May benefit from the addition of dexamethasone IV if not improved after third unit of platelets CBCD shows lymphopenia, not neutropenia #Hypokalemia- Potassium 3.0 on admission Order 4 K riders, and recheck laboratories in the a.m. No oral potassium due to potential aggravation of ulcers #Dehydration- Status post 1 L normal saline bolus in the ED Placed on LR at 80 mL/h #Breast cancer with metastases to spine, liver and brain- Consult hematology Cancer pain, changed to morphine 2/4 mg IV as needed as noted Zofran 4 mg IV every 6 hours as needed #Mental health- Hold Lexapro and alprazolam Lorazepam 0.5 mg IV every 8 hours as needed PG Care Time/CCT Total # of Minutes Spent Total Time Spent with Patient: Total time spent is greater than 50% in coordination of care (as documented) at patient's floor/unit and/or counseling patient: Coding Level of Care Code 41947 INT INP/OBS CARE 3/75MIN Diagnoses Chemotherapy-induced thrombocytopenia D69.59; T45.1X5A Hematemesis K92.0 Hypokalemia E87.6 Primary malignant neoplasm of left breast with metastasis to other site C50.912
[2025-01-31] MEDS ORDERED: MoRPHine SULFATE 4 MG/ML 1 ML CARP\\VIAL IV PRN (01:36)
[2025-01-31] MEDS: SUCRALFATE 1 GM/10 ML UDC PO SCH (02:48)
[2025-01-31] MEDS: PANTOprazole 40 MG/10 ML SYR IV ONE (02:48)
[2025-01-31] MEDS: MoRPHine SULFATE 4 MG/ML 1 ML CARP\\VIAL IV STA (02:53)
[2025-01-31] MEDS: POTASSIUM CHLORIDE / WTR 10 MEQ/100 ML PLCT IV SCH ×2 (02:56→08:22)
[2025-01-31] MEDS: LACTATED RINGER'S 1,000 ML IV SCH (02:56)
[2025-01-31 04:25] LABS: Alanine Aminotransferase 60.0 U/L (7-52); Albumin Globulin Ratio 1.3 (0.9-2); Alkaline Phosphatase 76.0 U/L (34-104); Anion Gap 4.0 (3-11); Bilirubin,Total 0.7 mg/dl (0.2-1.0); Blood Urea Nitrogen 3.0 mg/dl (6-23); Calcium 7.9 mg/dl (8.6-10.3); Carbon Dioxide 31.0 mmol/L (21-32); Chloride 106.0 mmol/L (98-107); Creatinine Clr Calc Pharmacy 171.1 ml/min; Globulin 2.3 gm/dl (2.5-4.0); Glucose 77.0 mg/dl (70-99(Fasting)); Magnesium 1.1 mg/dl (1.7-2.4); Potassium 2.7 mmol/L (3.5-5.1); Sodium 141.0 mmol/L (136-145); Total Protein 5.3 gm/dl (6.0-8.3)
[2025-01-31 04:56] LABS: Hematocrit (blood only) 24.8 % (37.0-47.0); Hemoglobin 8.0 g/dl (12.0-16.0); Mean Corpuscular Hemoglobin 29.0 pg (25.0-34.0); Mean Corpuscular Volume 89.9 fL (80.0-100.0); Platelet Count 30 K/uL (130-400); RDW Standard Deviation 53.1 fL (36.4-46.3); Red Blood Count 2.76 M/uL (4.20-5.40); White Blood Count 3.36 K/ul (4.8-10.8)
[2025-01-31 05:01] LABS: Dohle Bodies 1+; Immature Granulocytes # (auto) 0.28 K/uL (0.01-0.20); Immature Granulocytes % (auto) 8.3 %; Ovalocytes 1+; Tear Drop Cells 1+
[2025-01-31] MEDS: MAGNESIUM SULFATE / D5W 1 GM/100 ML BAG IV SCH (07:53)
[2025-01-31] MEDS: PANTOprazole 40 MG/10 ML SYR IV SCH (09:22)
[2025-01-31] MEDS: MoRPHine SULFATE 2 MG/ML CARP IV PRN (09:29)
--- NOTE | 2025-01-31 10:01 | Gastrointestinal Consultation ---
Date of Consultation January 31, 2025 Assessment & Plan (1) Hematemesis: (2) Chemotherapy-induced thrombocytopenia: (3) Primary malignant neoplasm of left breast with metastasis to other site: Plan Patient with a past medical history of metastatic breast cancer with spread to t he spine, liver, and brain, undergoing current chemotherapy/radiation admitted for thrombocytopenia. she had episode of hematemesis with nose bleed prior to admission. Recent EGD shown esophageal ulcers and duodenal ulcers, gastritis with hemorrhage, and acquired duodenal stenosis. discussed case with Dr. Rowe. - continue with protonix 40mg bid and carafate 1 gm qid. - no plans for endoscopic work up at this time in light of it not being recommended after recent EGD, lack of active GI bleeding, and ongoing thrombocytopenia. - she has some diarrhea that is likely chemo induced, but given the nonspecific proctocolitis seen on imaging, will check stool studies to rule out infectious cause. Also check h pylori stool antigen. - Further recommendations to come with Supervising GI provider on medical rounds. Please see co-signature comments. Supervising Physician Co-Signing Physician Notes I agree with the advanced practitioner's documentation above regarding review of case, evaluation, and assessment and plan unless outlined below. This was a shared visit in which I was present during all aspects of the case including evaluation, discussion of case, review of data and test results, interpretation of data and test results, complex medical decision making, coordination of care, communication with patient and family and direction of ancillary services. The patient is recently status post EGD demonstrating esophageal and duodenal ulceration. The patient's hematemesis is likely in the setting of throm bocytopenia and could represent swallowed blood from epistaxis. She has not had any melena or symptoms which would be suggestive of aggressive GI bleeding. Repletion of platelets to 50 or greater is advised. Continue high-dose antacid therapy to allow for previously identified ulcers to heal. I agree with stool studies to rule out any chronic inflammation of the colon in light of colonic inflammation identified on imaging. History of Present Illness Reason for Consultation: GIB, recent EGD [place] Requesting Physician: Emma WALKER Attending Physician: Noé Smith DO History of Present Illness Patient is a 34 year old female with a past medical history of metastatic breast cancer with spread to the spine, liver, and brain, undergoing current chemotherapy/radiation. Patient recently was admitted to [facility] due to hematemesis about 2-3 weeks ago in which she underwent EGD that showed esophageal and duodenal ulcers. Patient presented to the ED on 01/30 after 1 episode of hematemesis followed by a nosebleed, which was relieved after approximately 30 minutes. She has not had further vomiting or nose bleed since coming to the ED. Upon ED evaluation, the patient was found to have a platelet count of 26 and was transfused 2 units of platelets in the ED which brought her platelets up to 34. On-call raw cheese worker recommended admission since platelets were not at goal. Per H&P, her recent EGD revealed esophageal ulcer with stigmata of recent bleeding, hemostatic spray applied. Gastritis with hemorrhage. Acquired duodenal stenosis. Nonbleeding duodenal ulcer with no signs of bleeding, hemostatic spray applied. Evidence of likely eroding mass into the duodenal bulb with bleeding on contact. After her EGD, she was started on Protonix 40 mg twice daily as well as prn antiemetics. Reportedly, it was recommended she have no further endoscopic evaluations or therapies due to the severity of ulceration / severity of ulcerated stenosis in the setting of a mass which is not amenable to stenting. Currently, she feels well. no further nausea/vomiting. she denies acid reflux. no abdominal pain. she reports 2-3 bowel movements daily which are loose, but she attributes this to her chemo. no blood in the stools or melena. 01/31/25 wbc 3.36, hgb 8, hct 24.8, plts 30, Na 141, K 2.7, BUN 3, Cr 0.43. CT A/P 01/30/25 1. Mildly fluid-filled colon with interval development of diffuse colorectal wall thickening. The findings represent a nonspecific proctocolitis which may be infectious in etiology. Treatment related etiology is also within the differential. No bowel obstruction. 2. Mild decrease in hepatic and peritoneal/omental metastases consistent with a positive treatment response. 3. Nodularity of the liver surface. This may represent pseudocirrhosis. Mild increase in splenomegaly and possible varices. This may indicate portal hypertension. 4. Gastroduodenal wall thickening. This may be due to underdistention although is nonspecific and could be correlated with endoscopy as indicated. 5. No change in appearance of skeletal metastases. Allergies Allergy/AdvReac Type Severity Reaction Status Date / Time No Known Drug Allergies Allergy Verified 01/24/25 09:39 seasonal Allergy Mild Uncoded 01/24/25 09:39 Home Medications Medication Instructions Recorded Confirmed Type breast pump #1 ea 05/08/22 01/24/25 Rx ascorbic acid (vitamin C) 500 mg 500 mg PO QAM 07/12/23 01/24/25 History tablet (Vitamin C) multivitamin 1 tab PO DAILY ##0 07/12/23 01/24/25 History prochlorperazine maleate 10 mg 10 mg PO QID PRN Nausea 07/12/23 01/24/25 History tablet (Compazine) fulvestrant 250 mg/5 mL 250 mg IM MONTHLY 10/09/23 01/24/25 History intramuscular syringe (Faslodex) tramadol 50 mg tablet 50 mg PO BID PRN Pain 10/21/23 01/24/25 History diphenoxylate-atropine 2.5 1 tab PO Q6H PRN Diarrhea 03/04/24 01/24/25 History mg-0.025 mg tablet (Lomotil) cholecalciferol (vitamin D3) 25 25 mcg PO DAILY 06/23/24 01/24/25 History mcg (1,000 unit) tablet (Vitamin D3) escitalopram oxalate 10 mg tablet 10 mg PO HS 11/19/24 01/24/25 History (Lexapro) nystatin 100,000 unit/gram topical 1 applic topical DAILY PRN 11/19/24 01/24/25 History powder (Nyamyc) Irritation ondansetron 8 mg disintegrating 8 mg PO TID PRN Nausea And Vomiting 11/19/24 01/24/25 History tablet oxycodone 10 mg tablet 10 mg PO Q8 PRN Pain 11/19/24 01/24/25 History calcium carbonate (Calcium 500) 500 mg PO BID 12/05/24 01/24/25 History alprazolam 0.5 mg tablet (Xanax) 0.5 mg PO Q8H PRN Anxiety 12/12/24 01/24/25 History potassium chloride 20 mEq oral 20 meq PO DAILY #30 ea 12/13/24 01/24/25 Rx packet Patient History Medical History Hx of nausea Breast cancer metastasized to liver Most recent chemo 11/22/24 per [place] record Elevated liver enzymes History of anemia History of anxiety Hx of jaundice Cancer with mets to liver Hypocalcemia Hypokalemia History of cervical dysplasia History of pneumonia (04/2023) 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, ER/Pr+, Her 2 neg History of COVID-19 11/2021- "mild symptoms" > resolved Missed Hx Surgical History Port-A-Cath in place (11/11/23) Insertion of Access Port with Fluoroscopy Right Internal Jugular Vein Hx of bilateral oophorectomy (10/2023) History of ERCP 07/14/23, [facility] Hx laparoscopic cholecystectomy Robotic Laparoscopic Cholecystectomy: Grade 1 view, MAC#3, ETT 7.0 at [facility] History of dilatation and curettage S/p bilateral myringotomy with tube placement S/P tympanoplasty Right x2 History of low transverse section x2, with tubal ligation S/P wisdom tooth extraction S/P LEEP of cervix Family History Grandmother (Maternal) Breast cancer Aunt Breast cancer Grandfather Heart murmur Father Family history of reaction to anesthesia nausea/vomiting Other Twins, both liveborn Social History Smoking Status: Never smoker Tobacco Type: Cigarettes Second Hand Exposure: No; Do You Dip or Chew Tobacco: No; Hx Alcohol Use: No Hx Substance Use: Yes Last Used Substance: Days (ago) Substance Use Type Other:: edibles or topical Preferred Language: Sudanese Communication Ability: Effective Visual Impairment: No Limitations Single Pass Soil Stabilizer Operator Required: No Beliefs That Will Affect Care: None marital status: marital status details: Austin Almendarez (36) [phone] Current Living Situation: Spouse and Family Current Living Situation Comment: and two children 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 Feels Safe at Home: Yes Safety Concerns: Feels Safe At This Time Assistive Devices: Contacts Review of Systems Review of Systems: All systems reviewed & are unremarkable except as noted in HPI & below Physical Exam Constitutional: WD/WN, vitals as above Respiratory: normal respiratory effort, lungs clear to auscultation Cardiovascular: Rate/Rhythm: regular rate and regular rhythm Gastrointestinal (Abdomen): normal bowel sounds, soft, nontender, no hepatosplenomegaly Psychiatric: Orientation: alert and oriented x 3 Affect: euthymic affect Results & Data Vital Signs (Past 12 Hours) Vital Signs Temp Pulse Pulse Resp BP BP Pulse Ox 01/31/25 07:14 98.8 F 64 20 113/75 99 01/31/25 06:06 67 18 96 01/31/25 06:00 102/68 01/31/25 05:30 92/69 L 01/31/25 05:18 72 17 96 01/31/25 05:00 101/66 01/31/25 04:51 76 18 95 01/31/25 04:11 78 01/31/25 03:00 98.2 F 71 16 105/66 95 01/31/25 03:00 75 16 105/66 96 01/31/25 02:30 70 16 103/65 96 01/31/25 02:30 69 95 01/31/25 02:20 98.2 F 71 15 111/67 97 01/31/25 02:00 70 16 114/71 95 01/31/25 01:30 98.2 F 67 18 110/71 96 01/31/25 01:15 67 17 117/72 96 01/31/25 01:15 98.4 F 75 16 117/72 99 01/31/25 01:00 70 18 112/67 96 01/31/25 00:36 71 16 95 01/31/25 00:00 66 18 117/72 99 01/31/25 00:00 69 16 117/72 98 01/30/25 23:33 74 16 117/76 98 01/30/25 23:30 75 21 117/76 96 01/30/25 23:00 67 19 112/70 99 01/30/25 22:30 69 21 123/76 98 01/30/25 22:15 67 15 119/72 97 01/30/25 22:00 71 15 119/71 98 01/30/25 22:00 98.6 F O2 Del Method O2 Flow Rate 01/31/25 07:14 Room Air 01/31/25 06:06 Room Air 01/31/25 06:00 01/31/25 05:30 01/31/25 05:18 Room Air 01/31/25 05:00 01/31/25 04:51 Room Air 01/31/25 04:11 01/31/25 03:00 Room Air 01/31/25 03:00 Room Air 01/31/25 02:30 Room Air 01/31/25 02:30 Room Air 01/31/25 02:20 01/31/25 02:00 Room Air 01/31/25 01:30 01/31/25 01:15 Room Air 01/31/25 01:15 0 01/31/25 01:00 Room Air 01/31/25 00:36 Room Air 01/31/25 00:00 Room Air 01/31/25 00:00 Room Air 01/30/25 23:33 Room Air 01/30/25 23:30 Room Air 01/30/25 23:00 Room Air 01/30/25 22:30 Room Air 01/30/25 22:15 Room Air 01/30/25 22:00 Room Air 01/30/25 22:00 Coding Level of Care Code 96836 IN/OBS CONSULT LVL 4,60M Diagnoses Hematemesis K92.0 Chemotherapy-induced thrombocytopenia D69.59; T45.1X5A Primary malignant neoplasm of left breast with metastasis to other site C50.912
[2025-01-31] MEDS: ONDANSETRON INJ 2 MG/ML 2 ML VIAL IV PRN (11:09)
--- NOTE | 2025-01-31 11:53 | XRay Report ---
SINGLE VIEW CHEST CLINICAL HISTORY: Chest pain FINDINGS: An AP, portable, upright chest radiograph is compared to study dated 01/23/2025 and correlat ed with chest CT dated 05/01/2024. A right internal jugular central venous infusion port is unchanged in position. The heart is enlarged. There is mild pulmonary vascular congestion. Atelectasis is note d at the lung bases. No airspace consolidation or large pleural effusion is identified. No pneumothor ax is seen. The skeletal structures are osteopenic. The bony thorax is grossly intact. Findings of mu ltifocal osteoblastic metastatic disease are similar to previous. IMPRESSION: 1. Cardiomegaly with pulmonary vascular congestion. 2. No airspace consolidation or large pleural effusion is seen. 3. Multifocal osteoblastic metastatic disease is again noted. ACT 112: Negative or not required by law. Electronically signed by: Ta Laura M.D. 01/31/2025 11:51 AM
[2025-01-31 11:55] LABS: Hematocrit (blood only) 26.8 % (37.0-47.0); Hemoglobin 8.6 g/dl (12.0-16.0); Mean Corpuscular Hemoglobin 29.1 pg (25.0-34.0); Mean Corpuscular Volume 90.5 fL (80.0-100.0); RDW Standard Deviation 53.8 fL (36.4-46.3); Red Blood Count 2.96 M/uL (4.20-5.40)
[2025-01-31 12:10] LABS: White Blood Count 3.49 K/ul (4.8-10.8)
[2025-01-31 12:10] LABS: Anion Gap 7.0 (3-11); Blood Urea Nitrogen 2.0 mg/dl (6-23); Calcium 8.1 mg/dl (8.6-10.3); Carbon Dioxide 29.0 mmol/L (21-32); Chloride 107.0 mmol/L (98-107); Creatinine Clr Calc Pharmacy 163.5 ml/min; Glucose 108.0 mg/dl (70-99(Fasting)); Magnesium 2.0 mg/dl (1.7-2.4); Potassium 3.4 mmol/L (3.5-5.1); Sodium 143.0 mmol/L (136-145)
[2025-01-31 12:11] LABS: Dohle Bodies 2+; Immature Granulocytes # (auto) 0.07 K/uL (0.01-0.20); Immature Granulocytes % (auto) 2.0 %; Ovalocytes 1+; Platelet Count 27 K/uL (130-400); Polychromasia 1+; Tear Drop Cells 1+; Toxic Granulation 3+
[2025-01-31] MEDS: OPTIRAY 320 125ml IV ONE (12:11)
[2025-01-31] MEDS: ACETAMINOPHEN 1,000 MG/100 ML VIAL IV STA (12:58)
--- NOTE | 2025-01-31 13:19 | CT Scan Report ---
CT ANGIOGRAM OF THE CHEST CLINICAL HISTORY: Shortness of breath. Breast cancer. Evaluate for pulmonary embolus. COMPARISON STUDY: Chest CTs May 01, 2024 and December 07, 2024. Chest radiograph performed earlier t kajal. TECHNIQUE: Following the IV administration of 112 cc of Optiray 320, CT angiogram of the chest was pe rformed from the upper abdomen to the thoracic inlet utilizing the pulmonary embolus protocol. Images are reviewed in the axial, sagittal, and coronal planes. 3-D MIPS images are created and assessed. I V contrast was administered without complication. A dose lowering technique was utilized adhering to the principles of ALARA. CT DOSE: 429.07 mGy.cm FINDINGS: No pulmonary emboli identified although the subsegmental pulmonary arteries are suboptimall y assessed due to respiratory motion. There is no thoracic aortic dissection. A right internal jugula r [id number]-[id number] is in place. There is mild to moderate cardiomegaly. There is no pericardial effusion . Small bilateral pleural effusions have developed since chest CT of December 07, 2024. There is no pneumo thorax. There are are glass opacities with areas of apparent mosaic attenuation throughout the lungs. No confluent consolidation is present. There are no pulmonary nodules. A 6.9 x 4.7 cm mass within th e left breast has increased in size since CT of December 07, 2024 when it measured 5.3 x 3.[address] skin thickening has increased. Clustered mildly enlarged left axillary lymph nodes measuring up to 1 x 0.8 cm have increased in size. Multifocal sclerotic skeletal metastases are similar in appearanc e to prior CT of December 07, 2024. Multiple hepatic metastases and splenomegaly are better depicted on ab dominal CT of January 30, 2025. Small amount of upper abdominal ascites. IMPRESSION: 1. No pulmonary emboli identified although subsegmental pulmonary arteries suboptimally assessed. 2. Increase in size of a left breast mass consistent with the primary tumor since CT of December 07, 2024. Increase in left axillary lymphadenopathy with interval development of left breast skin thickening w hich may be treatment related. 3. Hepatic metastases and splenomegaly better depicted on this abdominal CT of January 30, 2025. Small amount of upper abdominal ascites. No change in appearance of skeletal metastases since CT of December. 4. Mild to moderate cardiomegaly with small bilateral pleural effusions. 5. Mild groundglass opacities with mosaic attenuation within the lungs. The findings may represent at electasis, mild pulmonary edema or less likely an infectious process. A treatment related etiology is also within the differential although considered less likely. ACT 112: Negative or not required by law. Electronically signed by: Daniel Pat M.D. 01/31/2025 1:17 PM
[2025-01-31] MEDS: FAMOTIDINE 20MG IV PUSH 20 MG/5 ML SYR IV STA (15:39)
--- NOTE | 2025-01-31 16:14 | Hospitalist Progress Note ---
Date of Service January 31, 2025 Assessment & Plan (1) Hematemesis: (2) Chemotherapy-induced thrombocytopenia: (3) Primary malignant neoplasm of left breast with metastasis to other site: Plan Patient is a 34-year-old female with 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 Patient recently was admitted to [facility] due to hematemesis in which she underwent EGD that showed esophageal and duodenal ulcers. Patient presented to the ER today after 1 episode of hematemesis followed by an episode of epi taxis, relieved after approximately 30 minutes. No recurrence of either symptoms since arrival to ED. Patient was found to have a platelet count of 26 and was transfused 2 units of platelets in the ED which brought her platelets up to 34. On-call sign out clerk recommended her come in for admission given goal of 50 not met for her platelet count. [facility] records reviewed - EGD revealed esophageal ulcer with stigmata of recent bleeding, hemostatic spray applied. Gastritis with hemorrhage. Acquired duodenal stenosis. Nonbleeding duodenal ulcer with no signs of bleeding, hemostatic spray applied. Evidence of likely eroding mass into the duodenal bulb with bleeding on contact. She was started on Protonix 40 Mg twice daily as well as as needed antiemetics. Recommended no further endoscopic evaluations or therapies recommended due to severity of ulceration, severity of ulcerated stenosis in the setting of mass which is not amenable to stenting. #Chemotherapy-induced thrombocytopenia - most recent chemotherapy treatment 01/26. Platelet count 26 on arrival. Re ceived transfusion of 3 units of platelets. - there is no overt sign of bleeding this morning on exam and patient remains hemodynamically stable. Has not had hematemesis, melena, hematochezia, epista xis, or hemoptysis. - H&H 8.0 & 24%, this drop in Hbg compared to admission labs is likely due to dilution as we have been giving patient IV fluids. - Platelets 30 in AM. Repeat platelet count this afternoon now 27. Discussed with hematology who recommended platelets transfusion - ordered 3 units - there is no need for steroids at this time, given patient's thrombocytopenia is very likely chemotherapy-induced and much less the result of an autoimmune process. hematology consulted and appreciate recommendations - trend CBC qAM - hold chemical VTE prophylaxis given bleeding risk, will continue with SCDs #Hematemesis - recent EGD at [facility] as noted above. H&H stable as above, treating thrombocytopenia. AP CT notes possible esophageal varices. - GI consulted and appreciate recommendations. There is no plan for repeat EGD today as patient is no longer having hematemesis and ongoing thrombocytopenia - continue IV protonix 40 mg bid; famotidine 20 mg IV also given today to optimize patients gastric pH to help better control bleeding. Continue carafate 4x daily - zofran as needed - advanced to regular diet and has been tolerating well; denies nausea/vomiting #chest pain/esophageal spasm?? gastric irritation?? - around noon today, patient reporting new onset pleuritic chest pain. - repeat H&H stable from morning. Plts now 27 - EKG normal sinus rhythm; CXR showing no acute pathology. CTA ordered to r/o PE considering patient has active malignancy and anticoagulation has been stopped since admission - negative for PE. - this chest pain could likely be due to esophageal spasms vs gastric ulcer irritation, given recently transitioned to regular diet prior to onset of pain. - pain management with tylenol; zofran prn and carafate 4x daily #Hypokalemia - chronic, baseline 3.3. On chronic daily p.o. supplement. Renal function stable. have been continuing to replete as needed - trend BMP & Mg #dehydration - poor p.o. intake 01/30 after vomiting and being in ED. Suspect elevated lactate of 2.82 2/2 dehydration. Received 1L NSS bolus in ED Continue with LR at 80 mL/hour #Breast cancer with metastasis to spine, liver, and brain undergoing current chemotherapy and radiation (gemcitabine and carboplatin) - most recent chemoth erapy 01/26. Follows with Dr. Zepeda. Mildly elevated transaminases. Chemotherapy induced thrombocytopenia as above. Hematology consulted Holding p.o. oxycodone as needed for cancer-related pain; transition to morphine 2/4 Mg IV as needed Zofran as needed #mental health - holding lexapro and alprazolam #Incidental findingAP CT noted possible nonspecific proctocolitis. Patient is completely asymptomatic. - per GI recommendations - patient reporting some diarrhea, however likely chemo induced but checked stool studies to r/o infectious cause. Studies are pending. VTE ppx: SCDs, defer chemical Dispo: PCU Admission and Anticipated Discharge Date Admission Date: January 31, 2025 Supervising Physician Co-Signing Physician Notes I personally examined the patient and verified all tan points of history and exam, discussed case, and agree with decision making with Dr Byers Feeling better. No further vomiting. Tolerated p.o. well. EGD from [facility] noted. Vitals noted, in general she is awake and alert pleasant no distress. HEENT normocephalic atraumatic mucous membranes moist. Breathing unlabored no accessory muscle use good effort. Skin without rashes pallor or icterus. Neuro without focal deficits. Labs and diagnostics noted. HematemesisGI bleeding versus posterior epistaxis versus both. Given her esophageal and peptic ulcer disease as well as appearance of erosive mass on scopehave to assume that some of it could be GI bleeding. Obviously high risk due to the multiple locations of bleeding and thrombocytopeniabecause of this aggressive acid suppression. Discussed small idiosyncratic risk of thrombocytopenia from famotidine independent of what is going on with chemotherapy, but in discussion with patient and myself, we agreed it made more sense to aggressively treat what was going on right now and monitor, given the low likelihood of worsening of platelets with famotidine in the more likely improvement in bleeding). Hemodynamically stable. Suspect hemoglobin drop was in part true blood loss in part dilution from fluids. Pancytopenia related to chemotherapy, fortunately not neutropenic. Thrombocytopenia has been transfused with platelets and this probably helped stop the bleeding a good deal as wellI suspect they were almost immediately consumed given her current platelet countshematology has recommended further platelet transfusions and this seems reasonable, we are having some difficulty obtaining platelets and I discussed with this patient, unfortunately given that her bleeding is stopped it is of lower concern. She would very much like to get home as soon as is safehopefully tomorrow. Subjective Patient seen and examined at bedside this morning. Reports feeling well and has not had more episodes of hematemesis and epistaxis. Has been on clear liquid diet and tolerating it well. Denies N/V/D/abdominal pain. At the time of evaluation, patient was denies chest pain and shortness of breath. Has been up and ambulating without concern. Moving bowels without hematochezia/melena. Voiding without issue. Review of Systems Review of Systems: as per hpi Physical Exam Constitutional: WD/WN, vitals as above Eyes: PERRL, conjunctivae normal, anicteric sclerae Respiratory: normal respiratory effort, lungs clear to auscultation Cardiovascular: RRR, no murmur, no edema Gastrointestinal (Abdomen): normal bowel sounds, soft, nontender, no hepatosplenomegaly Musculoskeletal: Head/Neck/Chest: normocephalic and head atraumatic Extremities: extremities normal to inspection Skin: no rashes, warm and dry Neurologic: no focal neurological deficit Psychiatric: A+Ox3, euthymic affect Results & Data Results & Data Vital Signs (Past 12 Hours) Vital Signs Temp Pulse Pulse Resp BP BP Pulse Ox 01/31/25 15:33 36.5 C 75 18 103/66 96 01/31/25 11:12 67 20 112/74 95 01/31/25 07:14 37.1 C 64 20 113/75 99 01/31/25 06:06 67 18 96 01/31/25 06:00 102/68 01/31/25 05:30 92/69 L 01/31/25 05:18 72 17 96 01/31/25 05:00 101/66 01/31/25 04:51 76 18 95 01/31/25 04:11 78 O2 Del Method 01/31/25 15:33 Room Air 01/31/25 11:12 Room Air 01/31/25 07:14 Room Air 01/31/25 06:06 Room Air 01/31/25 06:00 01/31/25 05:30 01/31/25 05:18 Room Air 01/31/25 05:00 01/31/25 04:51 Room Air 01/31/25 04:11
--- NOTE | 2025-01-31 16:40 | Oncology Consultation ---
Date of Consultation January 31, 2025 Assessment & Plan (1) Chemotherapy-induced thrombocytopenia: Transfuse platelets, maintain platelet count close to 50,000 given the recent bleeding episode. (2) Hematemesis: GI bleeding is now resolved, improving, continue supportive care per primary team Plan . Medical oncology will continue to follow the patient make appropriate recommendations. History of Present Illness Reason for Consultation: Breast cancer thrombocytopenia anemia GI bleeding Attending Physician: Noé Smith DO History of Present Illness See 04/28/2023 inpatient medical oncology and radiation oncology consultations in the context of # Metastatic breast cancer Date of diagnosis:04/28/2023 Stage at diagnosis: cT3 cN3 cM1 / IV (anatomic and prognolstic) Treatment: Dr. Brad Huynh reviewed and feels that we can proceed with radiation for now and hold off on surgical stabilization unless there is a new event or concern Radiation oncology here plans 10 fractions and anticipates start this week To be seen 05/12/[address] Zena Ocampo at [facility] Contact Keerthi Maradiaga RN, [facility] [phone] Also TANJA Carlson, research coordinator [phone] HER2 FISH and more complete [employer] are pending and will help to define both standard and investigational options In addition to systemic therapy standard or investigational option per the [facility] discussion will need to consider bone directed therapy in time History: Completion of second July, with ongoing issues with her left breast since that time ultimately when presented in the fall with concomitant cervical and left axillary adenopathy was referred for imaging demonstrating a breast mass. Immediately following completion that imaging she had a syncopal episode and was transferred to the ED and admitted with apparent metastatic malignancy 04/27/2023 UNILATERAL LEFT DIGITAL DIAGNOSTIC MAMMOGRAM TOMOSYNTHESIS . . . A triangular skin marker was placed on the upper outer left breast indicating the area of lump palpated by the patient. There is asymmetry throughout the entire lateral left breast. Based on the tomosynthesis localizer bars, an irregular 5 cm mass is seen superiorly on slice 57/87 and then inferiorly there is a large area of architectural distortion measuring at least 6.7 x 6.5 cm at approximate 3:00 or lower outer left breast slice 41/87. The architectural distortion extends inferiorly into the lower outer quadrant and seen on tomosynthesis slice 18/87. It is unclear whether this could represent two separate findings or simply 1 contiguous process. . . . IMPRESSION: ACR BI-RADS CATEGORY 0: INCOMPLETE EVALUATION: NEED ADDITIONAL IMAGING EVALUATION Suspicious 5 cm mass and 6.7 x 6.5 cm architectural distortion in the upper outer and lower outer left breast is incompletely characterized on this single left CC tomosynthesis view. The remainder of the imaging evaluation was terminated due to syncopal episode. Recommend additional bilateral diagnostic tomosynthesis mammograms, left breast and left axillary ultrasound for further evaluation, once the patient is stable. 04/27/2023 Brain MRI 1. Asymmetric T1 hypointense signal within the left frontal bone with minimal underlying dural enhancement. This is consistent with an osseous metastatic lesion. The underlying dural enhancement may be reactive. Early metastatic change would be difficult to exclude. Follow-up recommended to ensure stability. 2. Otherwise, no intracranial lesions identified. 3. The C3 metastatic focus is better appreciated on the same day cervical spine MRI. 4. There is an additional metastatic focus within the left occipital bone near the skull base. 04/27/2023 Cervical Spine MRI 1. There is evidence of bony metastatic disease involving body of C3 as seen by CT. There is also involvement of the spinous process at this level. 2. There may also be lesions within the left transverse process of T1 as well as the left occiput. 3. The cervical cord is normal in morphology and signal intensity with no abnormal postcontrast enhancement. 4. Pathological lymphadenopathy in the neck as above. This is also typical for metastatic disease. 5. Spondylotic changes as above, greatest at C4-C5. 04/27/[address] 1. There is a 2 cm lytic lesion within the left side of the C3 vertebral body which extends into the left C3 pedicle. This is highly suspicious for a metasta tic focus. 2. Mild indentation at the inferior endplate of C3 consistent with an age- indeterminate pathologic compression fracture. 3. Partially visualized lower cervical and superior mediastinal lymphadenopathy. This is highly suspicious for a neoplastic process. 4. Mild interlobular septal thickening within the lung apices. This could represent mild congestive change. 04/27/[address] 1. A large and heterogeneously enhancing mass lesion is partially visualized in the left breast. There may be multifocal lesions in the left breast. 2. There are pathologically [<= 2.4 cm] enlarged left axillary, bilateral supraclavicular, mediastinal, and hilar lymphadenopathy. This is typical for metastatic disease. 3. Foci of intralobular septal thickening and nodularity are seen throughout both lungs as above. Lymphangitic spread of tumor is the diagnosis of exclusion. 4. There is airspace consolidation at the medial left lung base. Correlate clinically for evidence of pneumonia. 5. No destructive bony lesions are identified in the thorax. 6. Additional findings as above. 04/27/2023 Abdomen/Pelvis CT . . . There is a 9 x 7 mm nodule in the splenic hilum which likely represents a splenule. Attention on follow-up is recommended to exclude peritoneal deposit. . . . IMPRESSION: 1. Right hepatic lesions [<= 4.3 cm] are concerning for metastatic disease in this patient with history of breast cancer. 2. Retroperitoneal lymph nodes are subcentimeter, nonspecific but likely benign. Prominent nas hepatis lymph nodes are noted. 3. Cholelithiasis without cholecystitis. 04/28/2023 >> Lymph node, left axilla, ultrasound-guided aspiration: - Malignant cells present consistent with metastatic adenocarcinoma, breast primary - Estrogen receptor: Positive (100%, strong to intermediate intensity). - Progesterone receptor: Positive (3%, intermediate intensity). - HER2/thaddeus overexpression: Equivocal (score 2+). - See comment. Comment: The specimen will be sent for FISH analysis of HER2/thaddeus. Those results will be documented in an addendum and a separate [employer] report. >> Lymph node, left axilla, ultrasound-guided core biopsy: - Metastatic carcinoma consistent with a breast primary. - See comment. Comment: This patient also had a concurrent positive fine-needle aspiration specimen ([id number]) which was evaluated for estrogen receptor, progesterone receptor and HER2/thaddeus. Refer to that case for further details. This specimen will be sent for a Apptentive Breast Tumor Profile. Those results will be separately documented in a [employer] repor 07/12/2023: Abdominal pelvic CT 1. 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 2. Cholelithiasis with CT findings suggestive of acute cholecystitis. 3. Choledocholithiasis results in intrahepatic and extrahepatic biliary ductal dilation. 4. No bowel obstruction or bowel wall thickening. 5. Additional findings as above. 07/16/2023: Laparoscopic cholecystectomy 07/29/2023: Primary left breast cancer with metastatic lymph nodes in the cervical, axillary, mediastinal and retroperitoneal chains. Hepatic and osseous metastatic's are seen. # Lesion of bone of cervical spine: Lytic lesion in C3. Reviewed with Dr. Brad Huynh in [place] ([phone]). >> RT only for now # Equivocal changes of dura adjacent to a site of bony skull metastasis. See 04/27/2023 MRI above. Some remote history of headache but otherwise no neurological changes, monitor # Pulmonary changes on CT but without dramatic symptoms in a non-smoker who is young and healthy otherwise. There is no description to suggest major aspiration at the time of her syncopal episode. Do have to be concerned that this could be very early lymphangitic or other pulmonary involvement # Syncope and collapse: By description she seems prone to vasovagal like episodes with rapid recovery and no signs of other major neurological compromise. Apparently did have a cardiology work-up that was unremarkable. Her mental status seems completely intact, she has no meningismus, there is no suggestion of carcinomatous menin gitis. The dural enhancement seen on MRI is probably more likely reactive to the overlying skull metastasis but nevertheless we will need to continue to closely monitor # Genetics: Given young age of presentation should have germline testing done in time, this may be performed at [facility] # History of cervical dysplasia: Status post LEEP there has been no sam progression of malignancy so far she is aware # Premenopausal/fertility issues: She has no desire for fertility preservation # PET CT scan, 11/26/2023 done in [facility] Significant interval progression of disease with enlarging left breast mass, increasing cervical, axillary, mediastinal, mesenteric, and retroperitoneal lymphadenopathy as well as marked progression of hepatic metastasis and osseous metastatic disease. # Echocardiogram, 11/26/2023 done in [facility]: Left ventricle cavity size is normal, systolic function is normal, EF is greater than 55%. Pericardium and extracardiac no pericardial effusion. # Pulmonary function studies, 11/26/2023, [facility] [place]: No restrictive or obstructive disease Echocardiogram, [facility], 03/07/2024, ejection fraction 63% PET CT scan, 03/07/2024 1. Significant positive response to therapy as described above CT chest, 03/14/2024 IMPRESSION: 1. No evidence of lymphadenopathy or pulmonary metastases. 2. Primary focus of disease in the left breast is decreased from prior exam. 3. Partial visualization of right hepatic metastasis. 4. Numerous sclerotic foci, increased from prior CT, compatible with osseous metastatic disease. ADDENDUM New faint interstitial thickening in the medial right lung base may represent very mild pulmonary interstitial edema versus interstitial lung disease. Chest x-ray, 03/22/2024 IMPRESSION: 1. The lungs are clear. 2. There are findings of multifocal osteoblastic metastatic disease. This was better assessed on the recent CT scan. Palliative systemic therapy due to progression: Enhertu, cycle 1 day 1: 11/30/2023 Enhertu cycle 2-day 1: 12/21/2023 Enhertu cycle 3-day 1: 01/11/2024 Enhertu cycle 4-day 1: 02/01/2024 Enhertu cycle 5-day 1: 02/22/2024 Enhertu 4.4 mg/kg cycle 6-day 1: 03/29/2024 Enhertu 4.4 mg/kg cycle 7-day 1: 04/19/2024 Enhertu 5.4 mg/kg, cycle 8-day 1: 05/10/2024 Liver biopsy, [facility], May 2024: ER negative MT negative HER2 3+ breast cancer Enhertu discontinued New regimen: Per [id number] study Tucatinib, Trastuzumab, and Capecitabine; cycle 1 day 1 07/01/2024 Tucatinib, Trastuzumab and Capecitabine; cycle 3 day 1: 08/15/2024 Tucatinib, trastuzumab and capecitabine, cycle 4-day 1: 09/05/2024 MRI brain in [facility]: 2 intracranial lesions. Gemcitabine plus carboplatin, cycle 1 day 1: 11/22/2024 Patient with metastatic breast cancer, with mets to the stomach, currently admitted with another episode of GI bleed after she had chemotherapy induced thrombocytopenia. Currently stabilized. GI bleeding has currently stopped. Allergies Allergy/AdvReac Type Severity Reaction Status Date / Time No Known Drug Allergies Allergy Verified 01/24/25 09:39 seasonal Allergy Mild Uncoded 01/24/25 09:39 Home Medications Medication Instructions Recorded Confirmed Type breast pump #1 ea 05/08/22 01/24/25 Rx ascorbic acid (vitamin C) 500 mg 500 mg PO QAM 07/12/23 01/24/25 History tablet (Vitamin C) multivitamin 1 tab PO DAILY ##0 07/12/23 01/24/25 History prochlorperazine maleate 10 mg 10 mg PO QID PRN Nausea 07/12/23 01/24/25 History tablet (Compazine) fulvestrant 250 mg/5 mL 250 mg IM MONTHLY 10/09/23 01/24/25 History intramuscular syringe (Faslodex) tramadol 50 mg tablet 50 mg PO BID PRN Pain 10/21/23 01/24/25 History diphenoxylate-atropine 2.5 1 tab PO Q6H PRN Diarrhea 03/04/24 01/24/25 History mg-0.025 mg tablet (Lomotil) cholecalciferol (vitamin D3) 25 25 mcg PO DAILY 06/23/24 01/24/25 History mcg (1,000 unit) tablet (Vitamin D3) escitalopram oxalate 10 mg tablet 10 mg PO HS 11/19/24 01/24/25 History (Lexapro) nystatin 100,000 unit/gram topical 1 applic topical DAILY PRN 11/19/24 01/24/25 History powder (Nyamyc) Irritation ondansetron 8 mg disintegrating 8 mg PO TID PRN Nausea And Vomiting 11/19/24 01/24/25 History tablet oxycodone 10 mg tablet 10 mg PO Q8 PRN Pain 11/19/24 01/24/25 History calcium carbonate (Calcium 500) 500 mg PO BID 12/05/24 01/24/25 History alprazolam 0.5 mg tablet (Xanax) 0.5 mg PO Q8H PRN Anxiety 12/12/24 01/24/25 History potassium chloride 20 mEq oral 20 meq PO DAILY #30 ea 12/13/24 01/24/25 Rx packet Patient History Medical History Hx of nausea Breast cancer metastasized to liver Most recent chemo 11/22/24 per [place] record Elevated liver enzymes History of anemia History of anxiety Hx of jaundice Cancer with mets to liver Hypocalcemia Hypokalemia History of cervical dysplasia History of pneumonia (04/2023) 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, ER/Pr+, Her 2 neg History of COVID-19 11/2021- "mild symptoms" > resolved Missed Hx Surgical History Port-A-Cath in place (11/11/23) Insertion of Access Port with Fluoroscopy Right Internal Jugular Vein Hx of bilateral oophorectomy (10/2023) History of ERCP 07/14/23, [facility] Hx laparoscopic cholecystectomy Robotic Laparoscopic Cholecystectomy: Grade 1 view, MAC#3, ETT 7.0 at [facility] History of dilatation and curettage S/p bilateral myringotomy with tube placement S/P tympanoplasty Right x2 History of low transverse section x2, with tubal ligation S/P wisdom tooth extraction S/P LEEP of cervix Family History Grandmother (Maternal) Breast cancer Aunt Breast cancer Grandfather Heart murmur Father Family history of reaction to anesthesia nausea/vomiting Other Twins, both liveborn Social History Smoking Status: Never smoker Tobacco Type: Cigarettes Second Hand Exposure: No; Do You Dip or Chew Tobacco: No; Hx Alcohol Use: No Hx Substance Use: Yes Last Used Substance: Days (ago) Substance Use Type Other:: edibles or topical Preferred Language: Swazi Communication Ability: Effective Visual Impairment: No Limitations Financial Reporting Consultant Required: No Beliefs That Will Affect Care: None marital status: marital status details: Austin Almendarez (36) [phone] Current Living Situation: Spouse and Family Current Living Situation Comment: and two children 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 Feels Safe at Home: Yes Safety Concerns: Feels Safe At This Time Assistive Devices: Contacts Review of Systems Review of Systems: All systems reviewed & are unremarkable except as noted in HPI & below Constitutional: as per Subjective / HPI Eyes: as per Subjective / HPI Ear, Nose, Mouth, Throat: as per Subjective / HPI Respiratory: as per Subjective / HPI Cardiovascular: as per Subjective / HPI Gastrointestinal: as per Subjective / HPI Genitourinary: as per Subjective / HPI Musculoskeletal: as per Subjective / HPI Integumentary: as per Subjective / HPI Neurologic: as per Subjective / HPI Psychiatric: as per Subjective / HPI Endocrine: as per Subjective / HPI Hematologic / Lymphatic: as per Subjective / HPI Allergy / Immunological: as per Subjective / HPI Physical Exam Constitutional: WD/WN, vitals as above Eyes: PERRL, conjunctivae normal, anicteric sclerae ENMT: external ear and nose normal, oropharynx normal Neck: trachea midline, no thyromegaly Respiratory: normal respiratory effort, lungs clear to auscultation Cardiovascular: RRR, no murmur, no edema Gastrointestinal (Abdomen): normal bowel sounds, soft, nontender, no hepatosplenomegaly Musculoskeletal: no cyanosis or clubbing, extremities motor strength 5/5 Skin: no rashes, warm and dry Neurologic: patellar DTR's 2+ bilat, sensation intact Psychiatric: A+Ox3, euthymic affect Genitourinary: no vaginal lesions, no adnexal mass Lymphatic: no cervical or axillary lymphadenopathy Results & Data Vital Signs (Past 12 Hours) Vital Signs Temp Pulse Pulse Resp BP BP Pulse Ox 01/31/25 15:33 36.5 C 75 18 103/66 96 01/31/25 11:12 67 20 112/74 95 01/31/25 07:14 37.1 C 64 20 113/75 99 01/31/25 06:06 67 18 96 01/31/25 06:00 102/68 01/31/25 05:30 92/69 L 01/31/25 05:18 72 17 96 01/31/25 05:00 101/66 01/31/25 04:51 76 18 95 O2 Del Method 01/31/25 15:33 Room Air 01/31/25 11:12 Room Air 01/31/25 07:14 Room Air 01/31/25 06:06 Room Air 01/31/25 06:00 01/31/25 05:30 01/31/25 05:18 Room Air 01/31/25 05:00 01/31/25 04:51 Room Air
--- NOTE | 2025-01-31 17:16 | Billing Data ---
Date of Service January 31, 2025 Coding Level of Care Code 58407 SUB INP/OBS CARE MIN
[2025-01-31] MEDS: ESCITALOPRAM OXALATE 10 MG TAB PO SCH (21:02)
[2025-01-31] MEDS: diphenhydrAMINE 50 MG/ML VIAL IV PRN (21:53)
--- NOTE | 2025-01-31 22:51 | Electrocardiogram Report ---
Test Reason : Blood Pressure : */* mmHG Vent. Rate : 83 BPM Atrial Rate : 83 BPM P-R Int : 150 ms QRS Dur : 78 ms QT Int : 384 ms P-R-T Axes : 35 2 39 degrees QTcB Int : 451 ms Normal sinus rhythm Minimal voltage criteria for LVH, may be normal variant ( R in aVL ) Nonspecific T wave abnormality When compared with ECG of 15-Jan-2025 12:35, No significant change was found Confirmed by Bi Heaton ([id number]) on 01/31/2025 10:51:08 PM Referred By: REFERRED SELF Confirmed By: Bi Heaton
--- NOTE | 2025-01-31 22:52 | Electrocardiogram Report ---
Test Reason : Blood Pressure : */* mmHG Vent. Rate : 63 BPM Atrial Rate : 63 BPM P-R Int : 176 ms QRS Dur : 80 ms QT Int : 434 ms P-R-T Axes : 29 5 17 degrees QTcB Int : 444 ms Normal sinus rhythm Low voltage QRS Nonspecific T wave abnormality When compared with ECG of 31-Jan-2025 02:45, No significant change was found Confirmed by Bi Heaton ([id number]) on 01/31/2025 10:51:50 PM Referred By: REFERRED SELF Confirmed By: Bi Heaton
--- NOTE | 2025-01-31 22:52 | Electrocardiogram Report ---
Test Reason : Blood Pressure : */* mmHG Vent. Rate : 66 BPM Atrial Rate : 66 BPM P-R Int : 202 ms QRS Dur : 84 ms QT Int : 434 ms P-R-T Axes : 44 4 30 degrees QTcB Int : 454 ms Normal sinus rhythm Nonspecific T wave abnormality When compared with ECG of 30-Jan-2025 11:32, No significant change was found Confirmed by Bi Heaton ([id number]) on 01/31/2025 10:51:31 PM Referred By: REFERRED SELF Confirmed By: Bi Heaton
[2025-02-01 06:34] LABS: Hematocrit (blood only) 24.5 % (37.0-47.0); Hemoglobin 8.0 g/dl (12.0-16.0); Mean Corpuscular Hemoglobin 29.7 pg (25.0-34.0); Mean Corpuscular Volume 91.1 fL (80.0-100.0); Platelet Count 25 K/uL (130-400); RDW Standard Deviation 53.5 fL (36.4-46.3); Red Blood Count 2.69 M/uL (4.20-5.40); White Blood Count 4.73 K/ul (4.8-10.8)
[2025-02-01 06:55] LABS: Dohle Bodies 1+; Immature Granulocytes # (auto) 0.38 K/uL (0.01-0.20); Immature Granulocytes % (auto) 8.0 %; Ovalocytes 1+; Polychromasia 2+; Tear Drop Cells 1+; Toxic Granulation 1+
[2025-02-01 06:59] LABS: Alanine Aminotransferase 45.0 U/L (7-52); Albumin Globulin Ratio 1.6 (0.9-2); Alkaline Phosphatase 80.0 U/L (34-104); Anion Gap 6.0 (3-11); Bilirubin,Total 0.4 mg/dl (0.2-1.0); Blood Urea Nitrogen 3.0 mg/dl (6-23); Calcium 8.4 mg/dl (8.6-10.3); Carbon Dioxide 30.0 mmol/L (21-32); Chloride 107.0 mmol/L (98-107); Creatinine Clr Calc Pharmacy 156.6 ml/min; Globulin 2.0 gm/dl (2.5-4.0); Glucose 72.0 mg/dl (70-99(Fasting)); Magnesium 1.5 mg/dl (1.7-2.4); Potassium 3.3 mmol/L (3.5-5.1); Sodium 143.0 mmol/L (136-145); Total Protein 5.1 gm/dl (6.0-8.3)
[2025-02-01 07:13] VITALS: TEMP 98.2
[2025-02-01] MEDS: MAGNESIUM SULFATE / D5W 1 GM/100 ML BAG IV SCH (08:04)
[2025-02-01] MEDS: POTASSIUM CHLORIDE CRTAB 20 MEQ TABCR PO STA (08:04)
--- NOTE | 2025-02-01 09:18 | Discharge Summary ---
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 Patient recently was admitted to [facility] due to hematemesis in which she underwent EGD that showed esophageal and duodenal ulcers. Patient presented to the ER today after 1 episode of hematemesis followed by an episode of epi taxis, relieved after approximately 30 minutes. No recurrence of either symptoms since arrival to ED. Patient was found to have a platelet count of 26 and was transfused 2 units of platelets in the ED which brought her platelets up to 34. On-call experience design director recommended her come in for admission given goal of 50 not met for her platelet count. Patient seen at bedside. Patient had chemotherapy on . She typically has nausea and vomiting associated with this and had a episode of vomiting this morning with significant amount of hematemesis feeling the trash can. She denies any current nausea and has had 1 episode of vomiting since that did not have any blood in it. She also had an episode of a nosebleed after the vomiting episode which was resolved in about 20 minutes, it was described as bright red blood draining from her nostrils. Patient stated she was recently admitted to [facility] for GI bleed in which they found an ulcer on EGD approximately 2 weeks ago. She was started on Protonix at this time. She denies any current dizziness, lightheadedness, headaches, chest pain, shortness of breath, abdominal pain. She stated she has never had a platelet transfusion before but has had blood and iron. She did not get any of her home medications today due to the nausea. She wishes to be full code. [facility] records reviewed - EGD revealed esophageal ulcer with stigmata of recent bleeding, hemostatic spray applied. Gastritis with hemorrhage. Acquired duodenal stenosis. Nonbleeding duodenal ulcer with no signs of bleeding, hemostatic spray applied. Evidence of likely eroding mass into the duodenal bulb with bleeding on contact. She was started on Protonix 40 Mg twice daily as well as as needed antiemetics. Recommended no further endoscopic evaluations or therapies recommended due to severity of ulceration, severity of ulcerated stenosis in the setting of mass which is not amenable to stenting. Admission Exam Per Admitting Provider The patient is awake, alert and oriented 3, well developed and well nourished, normocephalic and atraumatic, in no acute distress. Non-toxic appearing. HEENT- EOMI, mucous membranes dry. Hearing grossly intact. Heart-normal S1 and S2. No murmurs, rubs or gallops. Lungs-clear bilaterally, no respiratory distress, no accessory muscle use. Abdomen-normal bowel sounds and soft. No ascites noted. Non-tender. Extremities- no clubbing, cyanosis, or edema. Rheumatologic-normal range of motion. Psychiatric-normal affect. Principal Diagnosis hematemesis chemotherapy-induced thrombocytopenia Discharge Exam Constitutional WD/WN, vitals as above Eyes PERRL, conjunctivae normal, anicteric sclerae Respiratory normal respiratory effort, lungs clear to auscultation Cardiovascular RRR, no murmur, no edema Gastrointestinal (Abdomen) normal bowel sounds, soft, nontender, no hepatosplenomegaly Musculoskeletal Head/Neck/Chest: normocephalic and head atraumatic Extremities: extremities normal to inspection Skin no rashes, warm and dry Neurologic no focal neurological deficits Psychiatric A+Ox3, euthymic affect Discharge Data Allergies Allergy/AdvReac Type Severity Reaction Status Date / Time No Known Drug Allergies Allergy Verified 01/24/25 09:39 seasonal Allergy Mild Uncoded 01/24/25 09:39 Consultations 01/31/25 00:52 ED Decision to Admit Stat 01/31/25 02:28 Consult Gastroenterology Routine Consult Hematology Routine Ordered Studies 01/30/25 11:38 CT abd pelvis IV con only Stat 01/31/25 11:25 CT angio chest PE protocol Stat Hospital Course (1) Hematemesis: (2) Chemotherapy-induced thrombocytopenia: (3) Primary malignant neoplasm of left breast with metastasis to other site: Plan Patient is a 34-year-old female with 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 Patient recently was admitted to [facility] due to hematemesis in which she underwent EGD that showed esophageal and duodenal ulcers. Patient presented to the ER today after 1 episode of hematemesis followed by an episode of epi taxis, relieved after approximately 30 minutes. No recurrence of either symptoms since arrival to ED. Patient was found to have a platelet count of 26 and was transfused 2 units of platelets in the ED which brought her platelets up to 34. On-call experience design director recommended her come in for admission given goal of 50 not met for her platelet count. [facility] records reviewed - EGD revealed esophageal ulcer with stigmata of recent bleeding, hemostatic spray applied. Gastritis with hemorrhage. Acquired duodenal stenosis. Nonbleeding duodenal ulcer with no signs of bleeding, hemostatic spray applied. Evidence of likely eroding mass into the duodenal bulb with bleeding on contact. She was started on Protonix 40 Mg twice daily as well as as needed antiemetics. Recommended no further endoscopic evaluations or therapies recommended due to severity of ulceration, severity of ulcerated stenosis in the setting of mass which is not amenable to stenting. #Chemotherapy-induced thrombocytopenia - most recent chemotherapy treatment 01/26. Platelet count 26 on arrival. Received transfusion of 3 units of platelets in the ED. - H&H stable 8 & 24 this morning. Platelets 25 - received 2 units of platelets overnight, total of 5 transfusions since admission. -There is no overt sign of bleeding this morning on exam and patient remains hemodynamically stable. Has not had hematemesis, melena, hematochezia, epistaxis, or hemoptysis. - there is no need for steroids at this time, given patient's thrombocytopenia is very likely chemotherapy-induced and much less the result of an autoimmune process. hematology consulted and appreciate recommendations. Have plans to follow-up with patient outpatient after discharge. - Given risk of bleeding, chemical [facility] held [facility] #Hematemesis #chest pain/esophageal spasm?? gastric irritation?? -- resolved - recent EGD at [facility] as noted above. H&H stable as above, treating thrombocytopenia. AP CT notes possible esophageal varices. - GI consulted and appreciate recommendations. There was no need for repeat EGD during admission as patient is no longer having hematemesis and ongoing thrombocytopenia. - has been tolerating regular diet well, without N/V/D. Has not had repeat episodes of hematemesis. IV medications were switched to PO as patient has been tolerating well. Patient also reported the chest pain/esophageal spasm she had yesterday after eating has not returned. Telemetry overnight w/o actionable events. - continue protonix 40mg and carafate 4x daily; continue pain control with Tylenol and zofran PRN - CXR showing no acute pathology. CTA ordered to r/o PE considering patient has active malignancy and anticoagulation has been stopped since admission - negative for PE. #Hypokalemia / hypomagnesemia - chronic, baseline 3.3. On chronic daily p.o. supplement. Renal function stable. K+ 3.3 this morning; Mg 1.5 - repleted K+ with KCl 40 mEq PO ; magnesium sulfate 3g IV - can continue with home potassium supplement on discharge #dehydration - resolved - likely attributed to poor p.o. intake 01/30 after vomiting and being in ED. Lactate level elevated 2.82 which was likely 2/2 dehydration - has been receiving IV fluids during admission and has been tolerating PO without concern. #Breast cancer with metastasis to spine, liver, and brain - undergoing current chemotherapy and radiation (gemcitabine and carboplatin) - most recent chemotherapy 01/26. Follows with Dr. Zepeda. Chemotherapy induced thrombocytopenia as above. - EGD from [facility] also showing evidence of likely eroding mass into the duodenal bulb with bleeding on contact. Discussed with heme/onco and radiation oncology who is recommending outpatient f/u and further evaluation to discuss treatment options if patient amendable. pain controlled with acetaminophen and morphine IV Zofran as needed #mental health - resumed home lexapro ; lorazepam prn for anxiety/agitation - can continue home lexapro and alprazolam on discharge. #Incidental findingAP CT noted possible nonspecific proctocolitis. Patient is completely asymptomatic. - per GI recommendations - patient reporting some diarrhea, however likely chemo induced but checked stool studies to r/o infectious cause. Studies are pending. VTE ppx: SCDs, defer chemical Dispo: PCU Total Time Total Time Spent Total Time Spent (In Minutes): 45 Discharge Plan Discharge Items Patient Disposition: Home - Self-Care Reason For Visit: CHEMOTHERAPY-INDUCED THROMBOCYTOPENIA Discharge Diagnosis: hematemesis and epistaxis in the setting of chemotherapy-induced thrombocytopenia Condition on Discharge: Fair Activity: Per Instructions section Non-emergency contact: Primary Care Provider Call non-emergency contact if: you have any medication questions, your symptoms worsen, your pain is not controlled and you have a fever Follow-up/Referrals: Quentin Zepeda MD [Physician] - 02/10/25 8:40 am PCP,JAMILA [Primary Care Provider] - Diet: Regular Addtl Attending Provider Instructions: You were admitted to [facility] for bloody vomiting and nosebleeds in the setting of low platelet levels due to chemotherapy treatment. You received a total of 5 platelet transfusions during admission. You labs have remained stable and there have been no overt signs of bleeding or return of the bloody vomiting/nosebleeds since admission. Protonix 40mg bid po and Carafate have been sent to your local pharmacy. Please to continue these to help with the stomach and duodenal ulcers shown on the EGD completed at [facility]. You were also evaluated by hematology during your admission, please plan to follow-up with them within 1-2 weeks for further evaluation and treatment options. Please also plan to follow-up with your PCP within 1-2 weeks. Pending Studies at Discharge: No Stand-Alone Forms: My [facility], Smoking Cessation Medications and DC Order Prescriptions: New sucralfate 100 mg/mL Suspension 1 g PO QID Qty: 400 0RF pantoprazole 40 mg Tablet,Delayed Release (Dr/Ec) 40 mg PO BID Qty: 30 0RF Continued tramadol 50 mg tablet 50 mg PO BID PRN (Reason: Pain) alprazolam [Xanax] 0.5 mg tablet 0.5 mg PO Q8H PRN (Reason: Anxiety) diphenoxylate-atropine [Lomotil] 2.5-0.025 mg tablet 1 tab PO Q6H PRN (Reason: Diarrhea) (DME) breast pump Device See Rx Instructions .ROUTE .MEDSUPPLY Qty: 1 0RF Rx Instructions: Pt already has a breast pump multivitamin Tablet 1 tab PO DAILY Qty: 0 prochlorperazine maleate [Compazine] 10 mg tablet 10 mg PO QID PRN (Reason: Nausea) ascorbic acid (vitamin C) [Vitamin C] 500 mg Tablet 500 mg PO QAM cholecalciferol (vitamin D3) [Vitamin D3] 25 mcg (1,000 unit) Tablet 25 mcg PO DAILY fulvestrant [Faslodex] 250 mg/5 mL Syringe 250 mg IM MONTHLY Rx Instructions: last dose 2 weeks ago ondansetron 8 mg tablet,disintegrating 8 mg PO TID PRN (Reason: Nausea And Vomiting) nystatin [Nyamyc] 100,000 unit/gram powder 1 applic TOPICAL DAILY PRN (Reason: Irritation) escitalopram oxalate [Lexapro] 10 mg tablet 10 mg PO HS oxycodone 10 mg tablet 10 mg PO Q8 PRN (Reason: Pain) calcium carbonate [Calcium 500] 500 mg calcium (1,250 mg) tablet,chewable 500 mg PO BID potassium chloride 20 mEq packet 20 meq PO DAILY Qty: 30 5RF Discharge Orders: Discharge Order (Routine); Ordered 02/01/25 Ordered By: Jessica Byers Admission Data Admit Date/Time: 01/31/25 01:43 Attending Provider: Noé Smith Admit Provider: Antonio Ludwig Primary Care Provider: PCP,NO Other Providers: Antonio Ludwig; Quentin Zepeda; Brad Rowe Other Interventions: Discharge Summary Assessment (RN) Last Done: 02/01/25 12:39 Supervising Physician Co-Signing Physician Notes I personally examined the patient and verified all tan points of history and exam, discussed case, and agree with decision making with Dr Byers Feeling better. No further vomiting. Tolerated p.o. well. No new problems since yesterday. Discussed with hematology. Patient feels up to going home. Vitals noted, in general she is awake and alert pleasant no distress. HEENT normocephalic atraumatic mucous membranes moist. Breathing unlabored no accessory muscle use good effort. Skin without rashes pallor or icterus. Neuro without focal deficits. Labs and diagnostics noted. HematemesisGI bleeding versus posterior epistaxis versus both. Doing better. Safe/stable for home. Close and ongoing outpatient follow-up.
[2025-02-01 10:50] VITALS: PULSE 65; RESP 19; O2SAT 95
[2025-02-01 12:40] VITALS: BP 108/67
--- NOTE | 2025-02-01 18:24 | Billing Data ---
Date of Service February 01, 2025 Coding Level of Care Code 68397 IN/OBS DISCH 30 MIN/LESS
== END 2025-02-01 13:24 | disposition home or self-care (01) ==
LOC: ED 11:10 → EDINP 11:10 → SUATTDRO 01-31 01:43 → EDINP 01-31 02:28 → 2S 01-31 06:59

== ENCOUNTER 2025-02-11 22:00 | Inpatient (IN) ==
--- NOTE | 2025-02-11 22:18 | Emergency Department Note ---
Impression & Plan Vomiting Admission ED Provider Note HPI: History obtained from patient. The patient is a 34-year-old female with history of metastatic breast cancer, currently on chemotherapy, presents to the emergency department with a chief complaint of hematemesis. Patient states that she has had vomiting throughout the day that shows evidence of gross blood. Patient states she has had similar symptoms in the past associated with gastric ulcers. Patient states she does have metastatic disease to her stomach. On arrival here to the ER, the patient is hemodynamically stable, she is saturating well on room air. Patient denies any abdominal pain, she states she does have some more chronic pain diffusely in her back. Patient is afebrile on arrival. ROS: - Per HPI Differential Diagnosis: Upper GI bleed secondary to gastric ulcer and esophageal ulcers, esophageal variceal bleed, small bowel obstruction, viral gastroenteritis, chemotherapy-induced nausea/vomiting, amongst other potential pathologies. *Outpatient medications and allergy history reviewed. PE: General: Alert HEENT: Normocephalic, trachea midline Eyes: Extraocular eye movement is intact, no scleral erythema Pulmonary: Clear to auscultation bilaterally, no wheezing Cardio: Regular rate and rhythm GI: Abdomen is soft to palpation : No suprapubic tenderness MSK: No evidence of trauma or malformation of the extremities, no edema Skin: No evidence of rash Neuro: Alert, no focal deficits Psychiatric: Cooperative INDEPENDENT INTERPRETATIONS: secured entrance monitor: (As interpreted by myself): - An order was placed for continuous cardiac monitoring - Patient was noted to be in sinus rhythm with a rate of 70 EKG: (As interpreted by myself): Rate: 73 Rhythm: Normal sinus rhythm Intervals: Within normal limits ST changes: No ST elevation Time: 2232 Interventions provided in ED: - IV fluid bolus, IV Protonix bolus and drip, IV Zofran, IV morphine Medical Decision Making: IV was established and lab work obtained, patient was placed on engine monitor. Lab work shows no leukocytosis, hemoglobin is stable 11.4, platelet count is normal at 162, CMP does not show any evidence of any critical findings. Troponin is negative x 1, EKG shows normal sinus rhythm with a rate of 73. Lipase is also noted to be normal. CT imaging of the abdomen pelvis with IV contrast was obtained, this shows progression of metastatic disease in the liver and some thickening of the gastric antrum consistent with likely gastritis. There is also mention of colitis. Otherwise no critical findings are noted. On my reevaluation following IV Zofran and IV morphine the patient states she is feeling improved. She was maintained on Protonix drip and also given an IV fluid bolus here in the ED. Given the patient's multiple comorbidities, I feel she would benefit from observation and maintenance of Protonix drip. Patient was also ordered octreotide here in the ED. Patient's presentation was discussed with the on-call hospitalist, Dr. Tompkins, the patient was placed for admission in stable condition. Consultants/Discussions held with other healthcare providers: - Hospitalist, Dr. Tompkins Disposition discussion held by myself with: - Patient and support person at the bedside Diagnosis: 1. Nausea and vomiting, acute 2. History of metastatic breast cancer, currently on chemotherapy 3. Anemia, chronic Disposition: Admission Wilmar Herrera DO Emergency Medicine Past Med/Surg History Problem List (Updated 02/12/25 @ 00:59 by Wilmar Herrera DO) Vomiting (Acute) Chemotherapy-induced thrombocytopenia Thrombocytopenia (Acute) Primary malignant neoplasm of left breast with metastasis to other site Hypocalcemia (Acute) Hypoalbuminemia Hypokalemia due to excessive gastrointestinal loss of potassium Brain metastasis (Chronic) Hypokalemia (Acute) Hypomagnesemia (Acute) Choledocholithiasis (Acute) Metastatic disease (Acute) History of cervical dysplasia Medical History Hx of nausea Breast cancer metastasized to liver Most recent chemo 11/22/24 per [place] record Elevated liver enzymes History of anemia History of anxiety Hx of jaundice Cancer with mets to liver Hypocalcemia Hypokalemia History of cervical dysplasia History of pneumonia (04/2023) 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, ER/Pr+, Her 2 neg History of COVID-19 11/2021- "mild symptoms" > resolved Missed Hx Surgical History Port-A-Cath in place (11/11/23) Insertion of Access Port with Fluoroscopy Right Internal Jugular Vein Hx of bilateral oophorectomy (10/2023) History of ERCP 07/14/23, [facility] Hx laparoscopic cholecystectomy Robotic Laparoscopic Cholecystectomy: Grade 1 view, MAC#3, ETT 7.0 at [facility] History of dilatation and curettage S/p bilateral myringotomy with tube placement S/P tympanoplasty Right x2 History of low transverse section x2, with tubal ligation S/P wisdom tooth extraction S/P LEEP of cervix Family History Grandmother (Maternal) Breast cancer Aunt Breast cancer Grandfather Heart murmur Father Family history of reaction to anesthesia nausea/vomiting Other Twins, both liveborn Social History Smoking Status: Former smoker Tobacco Type: Cigarettes Second Hand Exposure: No; Do You Dip or Chew Tobacco: No; Hx Alcohol Use: No Hx Substance Use: Yes Last Used Substance: Days (ago) Substance Use Type Other:: edibles or topical Preferred Language: Iranian Communication Ability: Effective Visual Impairment: No Limitations Head Pumper Required: No Beliefs That Will Affect Care: None marital status: marital status details: Austin Almendarez (36) [phone] Current Living Situation: Spouse and Family Current Living Situation Comment: and two children 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 Feels Safe at Home: Yes Assistive Devices: None Allergies Allergies Allergy/AdvReac Type Severity Reaction Status Date / Time No Known Drug Allergies Allergy Verified 02/03/25 10:56 seasonal Allergy Mild Uncoded 02/03/25 10:56 Home Meds Home Medications Medication Instructions Recorded Confirmed ascorbic acid (vitamin C) 500 mg 500 mg PO QAM 07/12/23 02/11/25 tablet (Vitamin C) multivitamin 1 tab PO DAILY ##0 07/12/23 02/11/25 prochlorperazine maleate 10 mg 10 mg PO QID PRN Nausea 07/12/23 02/11/25 tablet (Compazine) fulvestrant 250 mg/5 mL 250 mg IM MONTHLY 10/09/23 02/11/25 intramuscular syringe (Faslodex) tramadol 50 mg tablet 50 mg PO BID PRN Pain 10/21/23 02/11/25 diphenoxylate-atropine 2.5 1 tab PO Q6H PRN Diarrhea 03/04/24 02/11/25 mg-0.025 mg tablet (Lomotil) cholecalciferol (vitamin D3) 25 25 mcg PO DAILY 06/23/24 02/11/25 mcg (1,000 unit) tablet (Vitamin D3) escitalopram oxalate 10 mg tablet 10 mg PO HS 11/19/24 02/11/25 (Lexapro) ondansetron 8 mg disintegrating 8 mg PO TID PRN Nausea And Vomiting 11/19/24 02/11/25 tablet oxycodone 10 mg tablet 10 mg PO Q8 PRN Pain 11/19/24 02/11/25 calcium carbonate (Calcium 500) 500 mg PO BID 12/05/24 02/11/25 alprazolam 0.5 mg tablet (Xanax) 0.5 mg PO Q8H PRN Anxiety 12/12/24 02/11/25 Previous Rx's Medication Instructions Recorded breast pump #1 ea 05/08/22 potassium chloride 20 mEq oral 20 meq PO DAILY #30 ea 12/13/24 packet pantoprazole 40 mg tablet,delayed 40 mg PO BID #30 tabs 02/01/25 release sucralfate 100 mg/mL oral 1 g (10 mL) PO QID #400 mL 02/01/25 suspension Results & Data (ED) Vital Signs Vital Signs - 24 hr 02/11/25 22:05 02/11/25 22:15 02/11/25 22:35 Temperature 36.2 C L Temperature Source Temporal Artery Scan Pulse Rate 83 79 Pulse Rate [Apical] 78 Pulse Rate from SpO2 Sensor Respiratory Rate 18 14 Respiratory Effort / Characteristics Non-Labored Spontaneous Non-Labored Spontaneous Respiratory Depth Normal Normal Respiratory Pattern Regular Regular Blood Pressure 132/92 Blood Pressure [Left Arm] 130/84 Blood Pressure Mean 105 Blood Pressure Mean [Left Arm] 99 Blood Pressure Position Sitting Pulse Oximetry 100 97 Oxygen Delivery Method Room Air Room Air Sepsis Recent Fever Within 48 Hours No Sepsis New/Unexplained Change in Mental Status N/A Sepsis Action Taken by Nursing No Action Required 02/11/25 22:35 02/11/25 23:15 02/11/25 23:18 Temperature Temperature Source Pulse Rate 70 Pulse Rate [Apical] Pulse Rate from SpO2 Sensor 83 68 Respiratory Rate 22 Respiratory Effort / Characteristics Respiratory Depth Respiratory Pattern Blood Pressure 116/76 Blood Pressure [Left Arm] Blood Pressure Mean 89 Blood Pressure Mean [Left Arm] Blood Pressure Position Pulse Oximetry 97 98 100 Oxygen Delivery Method Room Air Room Air Room Air Sepsis Recent Fever Within 48 Hours Sepsis New/Unexplained Change in Mental Status Sepsis Action Taken by Nursing 02/11/25 23:30 02/12/25 00:00 02/12/25 00:33 Temperature Temperature Source Pulse Rate 76 80 76 Pulse Rate [Apical] Pulse Rate from SpO2 Sensor 75 77 76 Respiratory Rate 19 16 23 Respiratory Effort / Characteristics Respiratory Depth Respiratory Pattern Blood Pressure 113/75 113/77 114/80 Blood Pressure [Left Arm] Blood Pressure Mean 96 89 91 Blood Pressure Mean [Left Arm] Blood Pressure Position Pulse Oximetry 98 98 96 Oxygen Delivery Method Room Air Room Air Room Air Sepsis Recent Fever Within 48 Hours Sepsis New/Unexplained Change in Mental Status Sepsis Action Taken by Nursing Laboratory Data 02/11/25 22:25 02/11/25 22:25 Lab Results 02/11/25 02/11/25 Range/Units 22:22 22: WBC 7.48 (4.8-10.8) K/ul RBC 3.91 L (4.20-5.40) M/uL Hgb 11.4 L (12.0-16.0) g/dl Hct 35.3 L (37.0-47.0) % MCV 90.3 (80.0-100.0) fL MCH 29.2 (25.0-34.0) pg MCHC 32.3 (32.0-36.0) g/dL RDW Std Deviation 65.9 H (36.4-46.3) fL RDW Coeff of Ara 21.2 H (11.5-14.5) % Plt Count 162 (130-400) K/uL MPV 10.3 (9.4-12.4) fL Immature Gran % (Auto) 0.4 % Neut % (Auto) 93.3 % Lymph % (Auto) 2.3 % [place] % (Auto) 3.7 % Eos % (Auto) 0.0 % Baso % (Auto) 0.3 % Neut # (Auto) 6.98 H (1.40-6.50) K/uL Lymph # (Auto) 0.17 L (1.20-3.40) K/uL [place] # (Auto) 0.28 (0.11-0.59) K/uL Eos # (Auto) 0.00 (0.00-0.50) K/uL Baso # (Auto) 0.02 (0.00-0.20) K/uL Immature Gran # (Auto) 0.03 (0.01-0.20) K/uL Anisocytosis Present Tear Drop Cells 2+ Acanthocytes (Spur) 1+ PT 12.0 (9.0-12.0) Seconds INR 1.1 (0.9-1.1) Sodium 139 (136-145) mmol/L Potassium 3.4 L (3.5-5.1) mmol/L Chloride 103 (98-107) mmol/L Carbon Dioxide 25 (21-32) mmol/L Anion Gap 11 (3-11) BUN 11 (6-23) mg/dl Creatinine 0.51 L (0.6-1.2) mg/dl Est Cr Clr Drug Dosing 131.7 ml/min eGFR 123.99 BUN/Creatinine Ratio 21.6 H (10-20) Glucose 103 H (70-99(Fasting)) mg/dl Calcium 9.3 (8.6-10.3) mg/dl Total Bilirubin 1.6 H (0.2-1.0) mg/dl AST 99 H (13-39) U/L ALT 40 (7-52) U/L Alkaline Phosphatase 98 (34-104) U/L Troponin I High Sens 4.6 (0-14) pg/ml Total Protein 6.4 (6.0-8.3) gm/dl Albumin 3.7 (3.4-5.0) gm/dl Globulin 2.7 (2.5-4.0) gm/dl Albumin/Globulin Ratio 1.4 (0.9-2) Lipase 23 (11-82) U/L Blood Type A Positive Antibody Screen NEGATIVE Administered Medications Pantoprazole Sodium 40 mg/ (Dextrose) 100 mls @ 20 mls/hr IV Q5H MIN Stop: 03/13/25 22:44 Last Admin: 02/11/25 23:34 Dose: 8 mg/hr, 20 mls/hr Documented By: VENTURA Discontinued Medications Sodium Chloride (Nss) 1,000 mls @ 999 mls/hr IV .Q1H1M STA Stop: 02/11/25 23:15 Last Infusion: 02/11/25 23:39 Dose: Infused Documented By: Admin: 02/11/25 22:29 Dose: 999 mls/hr Documented By: VENTURA Pantoprazole Sodium 80 mg/ (Dextrose) 120 mls @ 480 mls/hr IV NOW ONE Stop: 02/11/25 22:30 Last Infusion: 02/11/25 23:34 Dose: Infused Documented By: Admin: 02/11/25 23:15 Dose: 480 mls/hr Documented By: STEFANO Ioversol (Optiray 320 100ml) 93 ml IV ONCE ONE Stop: 02/11/25 23:10 Last Admin: 02/11/25 23:09 Dose: 93 ml Documented By: DESTINY Morphine Sulfate (Morphine Sulfate 4 Mg/Ml 1 Ml Carp\\Vial) 4 mg IV NOW STA Stop: 02/11/25 22:16 Last Admin: 02/11/25 22:21 Dose: 4 mg Documented By: VENTURA Ondansetron HCl (Ondansetron Inj 2 Mg/Ml 2 Ml Vial) 4 mg IV NOW STA Stop: 02/11/25 22:16 Last Admin: 02/11/25 22:21 Dose: 4 mg Documented By: VENTURA Pantoprazole Sodium (Pantoprazole Bolus/Drip) 1 each IV NOW STA Stop: 02/11/25 22:17 Last Admin: 02/11/25 23:15 Dose: 1 each Documented By: STEFANO Imaging Data Radiologist's Impression: Abdomen/Pelvis CT 02/11/25 22:16 Exam(s): CT ABDOMEN + PELVIS With Contrast EXAM: CT Abdomen and Pelvis With Intravenous Contrast CLINICAL HISTORY: Reason for exam: Hematemesis, history of metastatic cancer. TECHNIQUE: Axial computed tomography images of the abdomen and pelvis with intravenous contrast. CTDI is 14 mGy and DLP is 769 mGy-cm. Automated exposure control was utilized for the study. A dose lowering technique was utilized adhering to the principles of ALARA. COMPARISON: 01/30/2025 FINDINGS: ABDOMEN: Liver: Widespread metastatic disease in the liver which has progressed. Gallbladder and bile ducts: The gallbladder appears surgically absent. Pancreas: Unremarkable. Spleen: Spleen mildly enlarged measuring 13 cm. Adrenals: Unremarkable. Kidneys and ureters: Unremarkable. No obstructing stones. No hydronephrosis. Stomach and bowel: Mucosal thickening within the colon consistent with colitis. Mucosal thickening within the gastric antrum. PELVIS: Appendix: No findings to suggest acute appendicitis. Bladder: Unremarkable. Reproductive: Unremarkable as visualized. ABDOMEN and PELVIS: Intraperitoneal space: Trace ascites. No free air. Bones/joints: No acute fracture. Extensive sclerotic metastatic disease. Soft tissues: Unremarkable. Vasculature: Unremarkable. Lymph nodes: Unremarkable. IMPRESSION: 1. Widespread metastatic disease in the liver which has progressed. 2. Trace ascites. 3. Mucosal thickening within the colon consistent with colitis. 4. Mucosal thickening within the gastric antrum consistent with gastritis. 5. Diffuse sclerotic osseous metastatic disease. Electronically signed by: Justin Ballesteros MD 02/11/25 23:41 PM Discharge Plan Visit Data Chief Complaint: Vomiting Stated Complaint: VOMITING BLOOD ED Provider: Wilmar Herrera Discharge Problem: Vomiting Patient Disposition: Admitted As Inpatient Condition: Fair Forms Stand Alone Forms: [employer] Prescriptions Prescriptions: No Action tramadol 50 mg tablet 50 mg PO BID PRN (Reason: Pain) alprazolam [Xanax] 0.5 mg tablet 0.5 mg PO Q8H PRN (Reason: Anxiety) diphenoxylate-atropine [Lomotil] 2.5-0.025 mg tablet 1 tab PO Q6H PRN (Reason: Diarrhea) (DME) breast pump Device See Rx Instructions .ROUTE .MEDSUPPLY Qty: 1 0RF Rx Instructions: Pt already has a breast pump multivitamin Tablet 1 tab PO DAILY Qty: 0 prochlorperazine maleate [Compazine] 10 mg tablet 10 mg PO QID PRN (Reason: Nausea) ascorbic acid (vitamin C) [Vitamin C] 500 mg Tablet 500 mg PO QAM cholecalciferol (vitamin D3) [Vitamin D3] 25 mcg (1,000 unit) Tablet 25 mcg PO DAILY fulvestrant [Faslodex] 250 mg/5 mL Syringe 250 mg IM MONTHLY Rx Instructions: last dose 1 weeks ago ondansetron 8 mg tablet,disintegrating 8 mg PO TID PRN (Reason: Nausea And Vomiting) escitalopram oxalate [Lexapro] 10 mg tablet 10 mg PO HS oxycodone 10 mg tablet 10 mg PO Q8 PRN (Reason: Pain) calcium carbonate [Calcium 500] 500 mg calcium (1,250 mg) tablet,chewable 500 mg PO BID potassium chloride 20 mEq packet 20 meq PO DAILY Qty: 30 5RF sucralfate 100 mg/mL Suspension 1 g PO QID Qty: 400 0RF pantoprazole 40 mg Tablet,Delayed Release (Dr/Ec) 40 mg PO BID Qty: 30 0RF Referrals Referrals: PCP,NO [Primary Care Provider] -
[2025-02-11] MEDS: ONDANSETRON INJ 2 MG/ML 2 ML VIAL IV STA (22:21)
[2025-02-11] MEDS: MoRPHine SULFATE 4 MG/ML 1 ML CARP\\VIAL IV STA (22:21)
[2025-02-11] MEDS: SODIUM CHLORIDE 0.9% 1,000 ML IV STA (22:29)
[2025-02-11 22:42] LABS: Hematocrit (blood only) 35.3 % (37.0-47.0); Hemoglobin 11.4 g/dl (12.0-16.0); Mean Corpuscular Hemoglobin 29.2 pg (25.0-34.0); Mean Corpuscular Volume 90.3 fL (80.0-100.0); Platelet Count 162 K/uL (130-400); RDW Standard Deviation 65.9 fL (36.4-46.3); Red Blood Count 3.91 M/uL (4.20-5.40); White Blood Count 7.48 K/ul (4.8-10.8)
[2025-02-11 23:00] LABS: Acanthocytes 1+; Anisocytosis Present; Immature Granulocytes # (auto) 0.03 K/uL (0.01-0.20); Immature Granulocytes % (auto) 0.4 %; Tear Drop Cells 2+
[2025-02-11 23:01] LABS: Alanine Aminotransferase 40.0 U/L (7-52); Albumin Globulin Ratio 1.4 (0.9-2); Albumin Level 3.7 gm/dl (3.4-5.0); Alkaline Phosphatase 98.0 U/L (34-104); Anion Gap 11.0 (3-11); Bilirubin,Total 1.6 mg/dl (0.2-1.0); Blood Urea Nitrogen 11.0 mg/dl (6-23); Calcium 9.3 mg/dl (8.6-10.3); Carbon Dioxide 25.0 mmol/L (21-32); Chloride 103.0 mmol/L (98-107); Creatinine Clr Calc Pharmacy 131.7 ml/min; Globulin 2.7 gm/dl (2.5-4.0); Glucose 103.0 mg/dl (70-99(Fasting)); Lipase 23.0 U/L (11-82); Potassium 3.4 mmol/L (3.5-5.1); Sodium 139.0 mmol/L (136-145); Total Protein 6.4 gm/dl (6.0-8.3)
[2025-02-11] MEDS: OPTIRAY 320 100ml IV ONE (23:09)
[2025-02-11] MEDS: PANTOPRAZOLE BOLUS/DRIP IV STA (23:15)
[2025-02-11 23:33] LABS: INR 1.1 (0.9-1.1); Prothrombin Time 12.0 Seconds (9.0-12.0)
[2025-02-11] MEDS: PANTOprazole 40 MG in DEXTROSE 5% MINI-B 100 ML IV SCH (23:34)
--- NOTE | 2025-02-11 23:42 | CT Scan Report ---
Exam(s): CT ABDOMEN + PELVIS With Contrast EXAM: CT Abdomen and Pelvis With Intravenous Contrast CLINICAL HISTORY: Reason for exam: Hematemesis, history of metastatic cancer. TECHNIQUE: Axial computed tomography images of the abdomen and pelvis with intravenous contrast. CTDI is 14 mGy and DLP is 769 mGy-cm. Automated exposure control was utilized for the study. A dose lowering technique was utilized adhering to the principles of ALARA. COMPARISON: 01/30/2025 FINDINGS: ABDOMEN: Liver: Widespread metastatic disease in the liver which has progressed. Gallbladder and bile ducts: The gallbladder appears surgically absent. Pancreas: Unremarkable. Spleen: Spleen mildly enlarged measuring 13 cm. Adrenals: Unremarkable. Kidneys and ureters: Unremarkable. No obstructing stones. No hydronephrosis. Stomach and bowel: Mucosal thickening within the colon consistent with colitis. Mucosal thickening within the gastric antrum. PELVIS: Appendix: No findings to suggest acute appendicitis. Bladder: Unremarkable. Reproductive: Unremarkable as visualized. ABDOMEN and PELVIS: Intraperitoneal space: Trace ascites. No free air. Bones/joints: No acute fracture. Extensive sclerotic metastatic disease. Soft tissues: Unremarkable. Vasculature: Unremarkable. Lymph nodes: Unremarkable. IMPRESSION: 1. Widespread metastatic disease in the liver which has progressed. 2. Trace ascites. 3. Mucosal thickening within the colon consistent with colitis. 4. Mucosal thickening within the gastric antrum consistent with gastritis. 5. Diffuse sclerotic osseous metastatic disease. Electronically signed by: Justin Ballesteros MD 02/11/25 23:41 PM
--- NOTE | 2025-02-12 00:46 | History & Physical Report ---
Date of Service February 12, 2025 Assessment & Plan (1) Vomiting: (2) Hematemesis: (3) Metastatic disease: Plan 34yo female with history of metastatic breast cancer (lesions to spine, lung, liver, brain) presenting with multiple episodes of vomiting with hematemesis prior to arrival. Patient has had hematemesis on several occasions necessitating hospital admission. Patient had an EGD performed at [facility] which revealed duodenal and esophageal ulcers. She is on Protonix 40mg po BID. #Vomiting/Hematemesis - has not vomited for several hours since being in the ER -Admit to PCU -Keep NPO except chips/sips -LR at 100mL/hr + KCL x 1L ordered -Maintain PIV access - patient with port in place, will request second IV site -Protonix gtt -Octreotide gtt -Will initiate Pepcid 20mg IV BID -Zofran IV PRN -Compazine IV PRN -Will hold Sucralfate now for possible EGD in AM -GI consultation appreciated -If no resolution of nausea would consider re-imaging brain to assess for progression of metastatic lesions - MRI Brain 12/05/2024 #Metastatic breast cancer - patient currently on chemotherapy with Gemcitabine and Carboplatin -Pain control with IV Tylenol, Morphine PRN #Anxiety -Alprazolam PRN - continue home dose -Continue Escitalopram #PPx - SCDs and JAMES stockings Code - FULL History of Present Illness Chief Complaint: nausea, vomiting, concern for hematemesis Primary Care Provider: NO PCP Elvira Almendarez is a 34yo female presenting with nausea, multiple episodes of vomiting (brown liquid with small amount of blood) which started today around 11:00. Patient received chemotherapy yesterday. Her nausea today, however, is out of the ordinary. She has had multiple episodes of vomiting with some blood. Last episode of vomiting in the ER. No fever, chills, chest pain, cough, SOB. No abdominal pain or distention. No additional complaints. Patient has history of metastatic breast cancer which was diagnosed 04/28/2023 (ER/MS +, HER2 equivocol) with lesions to the spine, lung, brain and liver. Patient received XRT, was on several regimens of chemotherapy - now receiving Gemcitabine and Carboplatin since November 2024, last chemotherapy treatment yesterday 02/10/2025. In January patient was admitted to [facility] due to hematemesis. She had an EGD that showed esophageal and duodenal ulcers. She was admitted to [facility] 01/31 - 02/01/25 after presenting with hematemesis and epistaxis. She was found to be thrombocytopenic with platelet count of 26. She was transfused with platelets and ultimately discharged home. Patient has been compliant with her Protonix 40mg po BID. Has been using Zofran and Compazine alternating for management of nausea today. In the ER she is afebrile, HD stable. ER Course: Protonix Octreotide Allergies Allergy/AdvReac Type Severity Reaction Status Date / Time No Known Drug Allergies Allergy Verified 02/03/25 10:56 seasonal Allergy Mild Uncoded 02/03/25 10:56 Home Medications Medication Instructions Recorded Confirmed Type breast pump #1 ea 05/08/22 02/03/25 Rx ascorbic acid (vitamin C) 500 mg 500 mg PO QAM 07/12/23 02/11/25 History tablet (Vitamin C) multivitamin 1 tab PO DAILY ##0 07/12/23 02/11/25 History prochlorperazine maleate 10 mg 10 mg PO QID PRN Nausea 07/12/23 02/11/25 History tablet (Compazine) fulvestrant 250 mg/5 mL 250 mg IM MONTHLY 10/09/23 02/11/25 History intramuscular syringe (Faslodex) tramadol 50 mg tablet 50 mg PO BID PRN Pain 10/21/23 02/11/25 History diphenoxylate-atropine 2.5 1 tab PO Q6H PRN Diarrhea 03/04/24 02/11/25 History mg-0.025 mg tablet (Lomotil) cholecalciferol (vitamin D3) 25 25 mcg PO DAILY 06/23/24 02/11/25 History mcg (1,000 unit) tablet (Vitamin D3) escitalopram oxalate 10 mg tablet 10 mg PO HS 11/19/24 02/11/25 History (Lexapro) ondansetron 8 mg disintegrating 8 mg PO TID PRN Nausea And Vomiting 11/19/24 02/11/25 History tablet oxycodone 10 mg tablet 10 mg PO Q8 PRN Pain 11/19/24 02/11/25 History calcium carbonate (Calcium 500) 500 mg PO BID 12/05/24 02/11/25 History alprazolam 0.5 mg tablet (Xanax) 0.5 mg PO Q8H PRN Anxiety 12/12/24 02/11/25 History potassium chloride 20 mEq oral 20 meq PO DAILY #30 ea 12/13/24 02/11/25 Rx packet pantoprazole 40 mg tablet,delayed 40 mg PO BID #30 tabs 02/01/25 02/11/25 Rx release sucralfate 100 mg/mL oral 1 g (10 mL) PO QID #400 mL 02/01/25 02/11/25 Rx suspension Past Med/Surg History Problem List Vomiting (Acute) Chemotherapy-induced thrombocytopenia Thrombocytopenia (Acute) Primary malignant neoplasm of left breast with metastasis to other site Hypocalcemia (Acute) Hypoalbuminemia Hypokalemia due to excessive gastrointestinal loss of potassium Brain metastasis (Chronic) Hypokalemia (Acute) Hypomagnesemia (Acute) Choledocholithiasis (Acute) Metastatic disease (Acute) History of cervical dysplasia Medical History Hematemesis Anemia Metastatic cancer Breast cancer metastasized to liver Hx of nausea Breast cancer metastasized to liver Most recent chemo 11/22/24 per [place] record Elevated liver enzymes History of anemia History of anxiety Hx of jaundice Cancer with mets to liver Hypocalcemia Hypokalemia History of cervical dysplasia History of pneumonia (04/2023) 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, ER/Pr+, Her 2 neg History of COVID-19 11/2021- "mild symptoms" > resolved Missed Hx Surgical History Port-A-Cath in place (11/11/23) Insertion of Access Port with Fluoroscopy Right Internal Jugular Vein Hx of bilateral oophorectomy (10/2023) History of ERCP 07/14/23, [facility] Hx laparoscopic cholecystectomy Robotic Laparoscopic Cholecystectomy: Grade 1 view, MAC#3, ETT 7.0 at [facility] History of dilatation and curettage S/p bilateral myringotomy with tube placement S/P tympanoplasty Right x2 History of low transverse section x2, with tubal ligation S/P wisdom tooth extraction S/P LEEP of cervix Family History Grandmother (Maternal) Breast cancer Aunt Breast cancer Grandfather Heart murmur Father Family history of reaction to anesthesia nausea/vomiting Other Twins, both liveborn Social History Smoking Status: Former smoker Tobacco Type: Cigarettes Second Hand Exposure: No; Do You Dip or Chew Tobacco: No; Hx Alcohol Use: No Hx Substance Use: Yes Last Used Substance: Days (ago) Substance Use Type Other:: edibles or topical Preferred Language: Georgian Communication Ability: Effective Visual Impairment: No Limitations Equal Opportunity Specialist Required: No Beliefs That Will Affect Care: None marital status: marital status details: Austin Almendarez (36) [phone] Current Living Situation: Spouse and Family Current Living Situation Comment: and two children 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 Feels Safe at Home: Yes Assistive Devices: None Review of Systems Review of Systems: All systems reviewed & are unremarkable except as noted in HPI & below Physical Exam Physical Exam: General: patient resting comfortably, NAD, non-toxic in appearance, AA&O x 4 Skin: warm, dry, intact, no rashes or lesions HEENT: NC/AT, PERRL, EOMI, anicteric sclera, conjunctiva without injection, external ear normal to inspection and nontender, nares patent, moist mucus membranes, dentition intact, no oropharyngeal lesions, neck supple, trachea midline, no LAD, no thyromegaly, no JVD Heart: +S1/S2, regular, no m/r/g, port left chest wall - nontender Lungs: equal air entry bilaterally, no rales/rhonchi/wheezes Abd: +BS, soft, NT/ND, no masses/organomegaly/ascites Ext: warm, 2+ pulses in UE/LE bilaterally, no clubbing/cyanosis or edema Neuro: nonfocal, patient AA&O x 4, speech intact, no facial droop, moving all extremities on command with equal strength 5/5 Results & Data Results & Data Vital Signs (Past 12 Hours) Vital Signs Temp Pulse Pulse Resp BP BP Pulse Ox 02/12/25 00:33 76 23 114/80 96 02/12/25 00:00 80 16 113/77 98 02/11/25 23:30 76 19 113/75 98 02/11/25 23:18 70 22 116/76 100 02/11/25 23:15 98 02/11/25 22:35 97 02/11/25 22:35 78 14 130/84 97 02/11/25 22:15 79 02/11/25 22:05 36.2 C L 83 18 132/92 100 O2 Del Method 02/12/25 00:33 Room Air 02/12/25 00:00 Room Air 02/11/25 23:30 Room Air 02/11/25 23:18 Room Air 02/11/25 23:15 Room Air 02/11/25 22:35 Room Air 02/11/25 22:35 Room Air 02/11/25 22:15 02/11/25 22:05 Room Air Laboratory Results Laboratory Results WBC 7.48 K/ul (4.8-10.8) 02/11/25 22:25 RBC 3.91 M/uL (4.20-5.40) L 02/11/25 22:25 Hgb 11.4 g/dl (12.0-16.0) L 02/11/25 22:25 Hct 35.3 % (37.0-47.0) L 02/11/25 22:25 MCV 90.3 fL (80.0-100.0) 02/11/25 22:25 MCH 29.2 pg (25.0-34.0) 02/11/25 22: MCHC 32.3 g/dL (32.0-36.0) 02/11/25 22:25 RDW Std Deviation 65.9 fL (36.4-46.3) H 02/11/25 22:25 RDW Coeff of Ara 21.2 % (11.5-14.5) H 02/11/25 22:25 Plt Count 162 K/uL (130-400) 02/11/25 22: MPV 10.3 fL (9.4-12.4) 02/11/25 22:25 Immature Gran % (Auto) 0.4 % 02/11/25 22: Neut % (Auto) 93.3 % 02/11/25 22:25 Lymph % (Auto) 2.3 % 02/11/25 22:25 [place] % (Auto) 3.7 % 02/11/25 22: Eos % (Auto) 0.0 % 02/11/25 22:25 Baso % (Auto) 0.3 % 02/11/25: Neut # (Auto) 6.98 K/uL (1.40-6.50) H 02/11/25 22: Lymph # (Auto) 0.17 K/uL (1.20-3.40) L 02/11/25 22: [place] # (Auto) 0.28 K/uL (0.11-0.59) 02/11/25 22: Eos # (Auto) 0.00 K/uL (0.00-0.50) 02/11/25: Baso # (Auto) 0.02 K/uL (0.00-0.20) 02/11/25: Immature Gran # (Auto) 0.03 K/uL (0.01-0.20) 02/11/25:25 Anisocytosis Present 02/11/25 22: Tear Drop Cells 2+ 02/11/25: Acanthocytes (Spur) 1+ 02/11/25: PT 12.0 Seconds (9.0-12.0) 02/11/25: INR 1.1 (0.9-1.1) 02/11/25: Sodium 139 mmol/L (136-145) 02/11/25 22: Potassium 3.4 mmol/L (3.5-5.1) L 02/11/25 22: Chloride 103 mmol/L (98-107) 02/11/25 22: Carbon Dioxide 25 mmol/L (21-32) 02/11/25: Anion Gap 11 (3-11) 02/11/25: BUN 11 mg/dl (6-23) 02/11/25: Creatinine 0.51 mg/dl (0.6-1.2) L 02/11/25: Est Cr Clr Drug Dosing 131.7 ml/min 02/11/25 22: eGFR 123.99 02/11/25: BUN/Creatinine Ratio 21.6 (10-20) H 09/06/25 22:25 Glucose 103 mg/dl (70-99(Fasting)) H 02/11/25 22:25 Calcium 9.3 mg/dl (8.6-10.3) 02/11/25 22:25 Total Bilirubin 1.6 mg/dl (0.2-1.0) H 02/11/25 22:25 AST 99 U/L (13-39) H 02/11/25 22:25 ALT 40 U/L (7-52) 02/11/25 22:25 Alkaline Phosphatase 98 U/L (34-104) 02/11/25 22:25 Troponin I High Sens 4.6 pg/ml (0-14) 02/11/25 22:25 Total Protein 6.4 gm/dl (6.0-8.3) 02/11/25 22:25 Albumin 3.7 gm/dl (3.4-5.0) 02/11/25 22:25 Globulin 2.7 gm/dl (2.5-4.0) 02/11/25 22:25 Albumin/Globulin Ratio 1.4 (0.9-2) 02/11/25 22:25 Lipase 23 U/L (11-82) 02/11/25 22:25 Blood Type A Positive 02/11/25 22:22 Antibody Screen NEGATIVE 02/11/25 22:22 Impressions Abdomen/Pelvis CT 02/11/25 22:16 Exam(s): CT ABDOMEN + PELVIS With Contrast EXAM: CT Abdomen and Pelvis With Intravenous Contrast CLINICAL HISTORY: Reason for exam: Hematemesis, history of metastatic cancer. TECHNIQUE: Axial computed tomography images of the abdomen and pelvis with intravenous contrast. CTDI is 14 mGy and DLP is 769 mGy-cm. Automated exposure control was utilized for the study. A dose lowering technique was utilized adhering to the principles of ALARA. COMPARISON: 01/30/2025 FINDINGS: ABDOMEN: Liver: Widespread metastatic disease in the liver which has progressed. Gallbladder and bile ducts: The gallbladder appears surgically absent. Pancreas: Unremarkable. Spleen: Spleen mildly enlarged measuring 13 cm. Adrenals: Unremarkable. Kidneys and ureters: Unremarkable. No obstructing stones. No hydronephrosis. Stomach and bowel: Mucosal thickening within the colon consistent with colitis. Mucosal thickening within the gastric antrum. PELVIS: Appendix: No findings to suggest acute appendicitis. Bladder: Unremarkable. Reproductive: Unremarkable as visualized. ABDOMEN and PELVIS: Intraperitoneal space: Trace ascites. No free air. Bones/joints: No acute fracture. Extensive sclerotic metastatic disease. Soft tissues: Unremarkable. Vasculature: Unremarkable. Lymph nodes: Unremarkable. IMPRESSION: 1. Widespread metastatic disease in the liver which has progressed. 2. Trace ascites. 3. Mucosal thickening within the colon consistent with colitis. 4. Mucosal thickening within the gastric antrum consistent with gastritis. 5. Diffuse sclerotic osseous metastatic disease. Electronically signed by: Justin Ballesteros MD 02/11/25 23:41 PM Code Status & VTE Plan VTE Prophylaxis Plan VTE Prophylaxis will be ordered: Yes PG Care Time/CCT Total # of Minutes Spent Total Time Spent with Patient: Total time spent is greater than 50% in coordination of care (as documented) at patient's floor/unit and/or counseling patient: Coding Level of Care Code 25053 INT INP/OBS CARE 3/75MIN Diagnoses Vomiting R11.10 Hematemesis K92.0 Malignant neoplasm metastatic to bone marrow C79.9 Area of secondary neoplastic involvement: unspecified site (3) Metastatic disease Area of secondary neoplastic involvement: unspecified site Qualified Code(s): C79.9 - Secondary malignant neoplasm of unspecified site
[2025-02-12] MEDS: OCTREOTIDE ACETATE 50 MCG in SYRINGE 9.5 ML IV STA (00:56)
[2025-02-12] MEDS: STAT IV/IM STA (00:57)
[2025-02-12] MEDS: diphenhydrAMINE 50 MG/ML VIAL IV STA ×2 (02:28→20:28)
[2025-02-12] MEDS ORDERED: ACETAMINOPHEN 1,000 MG/100 ML VIAL IV PRN (02:51)
[2025-02-12] MEDS: ONDANSETRON INJ 2 MG/ML 2 ML VIAL IV PRN (03:05)
[2025-02-12] MEDS: MoRPHine SULFATE 4 MG/ML 1 ML CARP\\VIAL IV PRN (03:08)
[2025-02-12] MEDS: POTASSIUM CHLORIDE 20 MEQ in LACTATED RINGER'S 1,000 ML IV SCH (03:48)
[2025-02-12] MEDS: FAMOTIDINE 20MG IV PUSH 20 MG/5 ML SYR IV SCH (03:57)
[2025-02-12] MEDS ORDERED: HEPARIN 100 UNIT/ML 5ML FLUSH FLUSH PRN (06:50)
[2025-02-12] MEDS: MoRPHine SULFATE 2 MG/ML CARP IV PRN (08:36)
--- NOTE | 2025-02-12 10:17 | Gastrointestinal Consultation ---
Date of Consultation February 12, 2025 Assessment & Plan (1) Vomiting: Pleasant woman who unfortunately has a really bad problem. There isn't much I can do for her endoscopically having read through the report from [facility] from a few months ago. I am not sure there is much I would need to do anyway since she is not really having much in the way of hematemesis and it was only one episode. Her hemoglobin has remained stable and is actually a tad higher than in the past. She wants to go home and there isn't much reason I can see why she can't go home. I did suggest to her that she continue jejunostomy tube for nutrition so she can keep her strength up. This won't keep her from eating and drinking what she wants to have as well. She will discuss with her oncologist. History of Present Illness Reason for Consultation: hematemesis Attending Physician: Vicky Obrien, History of Present Illness 34 year old female with metastatic breast cancer invasive to the stomach with resultant GOO at least to the endoscope. She was admitted because she had some emesis yesterday that she says "wasn't solid blood like before but did have a blood tinge. She has had no further vomiting since then. Her H/H have remained stable. She says she feels back to "normal" now although she isn't certain that she doesn't feel nausea coming on after having clear liquids. She subsists at home with mainly liquids and protein shakes. She cannot eat well. She and her doctor are currently considering radiation for her tumor now. Allergies Allergy/AdvReac Type Severity Reaction Status Date / Time No Known Drug Allergies Allergy Verified 02/03/25 10:56 seasonal Allergy Mild Uncoded 02/03/25 10:56 Home Medications Medication Instructions Recorded Confirmed Type breast pump #1 ea 05/08/22 02/03/25 Rx ascorbic acid (vitamin C) 500 mg 500 mg PO QAM 07/12/23 02/11/25 History tablet (Vitamin C) multivitamin 1 tab PO DAILY ##0 07/12/23 02/11/25 History prochlorperazine maleate 10 mg 10 mg PO QID PRN Nausea 07/12/23 02/11/25 History tablet (Compazine) fulvestrant 250 mg/5 mL 250 mg IM MONTHLY 10/09/23 02/11/25 History intramuscular syringe (Faslodex) tramadol 50 mg tablet 50 mg PO BID PRN Pain 10/21/23 02/11/25 History diphenoxylate-atropine 2.5 1 tab PO Q6H PRN Diarrhea 03/04/24 02/11/25 History mg-0.025 mg tablet (Lomotil) cholecalciferol (vitamin D3) 25 25 mcg PO DAILY 06/23/24 02/11/25 History mcg (1,000 unit) tablet (Vitamin D3) escitalopram oxalate 10 mg tablet 10 mg PO HS 11/19/24 02/11/25 History (Lexapro) ondansetron 8 mg disintegrating 8 mg PO TID PRN Nausea And Vomiting 11/19/24 02/11/25 History tablet oxycodone 10 mg tablet 10 mg PO Q8 PRN Pain 11/19/24 02/11/25 History calcium carbonate (Calcium 500) 500 mg PO BID 12/05/24 02/11/25 History alprazolam 0.5 mg tablet (Xanax) 0.5 mg PO Q8H PRN Anxiety 12/12/24 02/11/25 History potassium chloride 20 mEq oral 20 meq PO DAILY #30 ea 12/13/24 02/11/25 Rx packet pantoprazole 40 mg tablet,delayed 40 mg PO BID #30 tabs 02/01/25 02/11/25 Rx release sucralfate 100 mg/mL oral 1 g (10 mL) PO QID #400 mL 02/01/25 02/11/25 Rx suspension Patient History Medical History Hematemesis Anemia Metastatic cancer Breast cancer metastasized to liver Hx of nausea Breast cancer metastasized to liver Most recent chemo 11/22/24 per [place] record Elevated liver enzymes History of anemia History of anxiety Hx of jaundice Cancer with mets to liver Hypocalcemia Hypokalemia History of cervical dysplasia History of pneumonia (04/2023) 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, ER/Pr+, Her 2 neg History of COVID-19 11/2021- "mild symptoms" > resolved Missed Hx Surgical History Port-A-Cath in place (11/11/23) Insertion of Access Port with Fluoroscopy Right Internal Jugular Vein Hx of bilateral oophorectomy (10/2023) History of ERCP 07/14/23, [facility] Hx laparoscopic cholecystectomy Robotic Laparoscopic Cholecystectomy: Grade 1 view, MAC#3, ETT 7.0 at [facility] History of dilatation and curettage S/p bilateral myringotomy with tube placement S/P tympanoplasty Right x2 History of low transverse section x2, with tubal ligation S/P wisdom tooth extraction S/P LEEP of cervix Family History Grandmother (Maternal) Breast cancer Aunt Breast cancer Grandfather Heart murmur Father Family history of reaction to anesthesia nausea/vomiting Other Twins, both liveborn Social History Smoking Status: Never smoker Tobacco Type: Cigarettes Second Hand Exposure: No; Do You Dip or Chew Tobacco: No; Hx Alcohol Use: No Hx Substance Use: Yes Last Used Substance: Days (ago) Substance Use Type Other:: edibles or topical Preferred Language: Chinese Communication Ability: Effective Visual Impairment: No Limitations [employer] And Service Director Required: No Beliefs That Will Affect Care: None marital status: marital status details: Austin Almendarez (36) [phone] Current Living Situation: Spouse Current Living Situation Comment: and two children 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 Feels Safe at Home: Yes Assistive Devices: Contacts Review of Systems Review of Systems: All systems reviewed & are unremarkable except as noted in HPI & below Physical Exam Physical Exam: Pleasant, in no distress Constitutional: WD/WN, vitals as above Neck: trachea midline, no thyromegaly Respiratory: normal respiratory effort, lungs clear to auscultation Cardiovascular: RRR, no murmur, no edema Gastrointestinal (Abdomen): normal bowel sounds, soft, nontender, no hepatosplenomegaly Results & Data Vital Signs (Past 12 Hours) Vital Signs Temp Pulse Pulse Resp BP BP Pulse Ox 02/12/25 08:24 02/12/25 07:38 79 02/12/25 07:21 36.6 C 66 15 106/72 96 02/12/25 02:59 71 02/12/25 02:45 02/12/25 02:45 36.4 C L 77 20 130/77 96 02/12/25 02:32 36.6 C 69 18 101/66 97 02/12/25 02:03 81 18 109/80 96 02/12/25 01:36 73 17 108/78 96 02/12/25 01:09 70 18 99 02/12/25 01:01 74 22 126/98 95 02/12/25 00:33 76 23 114/80 96 02/12/25 00:00 80 16 113/77 98 02/11/25 23:30 76 19 113/75 98 02/11/25 23:18 70 22 116/76 100 02/11/25 23:15 98 02/11/25 22:35 97 02/11/25 22:35 78 14 130/84 97 02/11/25 22:15 79 O2 Del Method 02/12/25 08:24 Room Air 02/12/25 07:38 02/12/25 07:21 Room Air 02/12/25 02:59 02/12/25 02:45 Room Air 02/12/25 02:45 Room Air 02/12/25 02:32 Room Air 02/12/25 02:03 Room Air 02/12/25 01:36 Room Air 02/12/25 01:09 Room Air 02/12/25 01:01 Room Air 02/12/25 00:33 Room Air 02/12/25 00:00 Room Air 02/11/25 23:30 Room Air 02/11/25 23:18 Room Air 02/11/25 23:15 Room Air 02/11/25 22:35 Room Air 02/11/25 22:35 Room Air 02/11/25 22:15 Laboratory Results 02/11/25 02/11/25 Range/Units 22:25 22:22 WBC 7.48 (4.8-10.8) K/ul RBC 3.91 L (4.20-5.40) M/uL Hgb 11.4 L (12.0-16.0) g/dl Hct 35.3 L (37.0-47.0) % MCV 90.3 (80.0-100.0) fL MCH 29.2 (25.0-34.0) pg MCHC 32.3 (32.0-36.0) g/dL RDW Std Deviation 65.9 H (36.4-46.3) fL RDW Coeff of Ara 21.2 H (11.5-14.5) % Plt Count 162 (130-400) K/uL MPV 10.3 (9.4-12.4) fL Immature Gran % (Auto) 0.4 % Neut % (Auto) 93.3 % Lymph % (Auto) 2.3 % [place] % (Auto) 3.7 % Eos % (Auto) 0.0 % Baso % (Auto) 0.3 % Neut # (Auto) 6.98 H (1.40-6.50) K/uL Lymph # (Auto) 0.17 L (1.20-3.40) K/uL [place] # (Auto) 0.28 (0.11-0.59) K/uL Eos # (Auto) 0.00 (0.00-0.50) K/uL Baso # (Auto) 0.02 (0.00-0.20) K/uL Immature Gran # (Auto) 0.03 (0.01-0.20) K/uL Anisocytosis Present Tear Drop Cells 2+ Acanthocytes (Spur) 1+ PT 12.0 (9.0-12.0) Seconds INR 1.1 (0.9-1.1) Sodium 139 (136-145) mmol/L Potassium 3.4 L (3.5-5.1) mmol/L Chloride 103 (98-107) mmol/L Carbon Dioxide 25 (21-32) mmol/L Anion Gap 11 (3-11) BUN 11 (6-23) mg/dl Creatinine 0.51 L (0.6-1.2) mg/dl Est Cr Clr Drug Dosing 131.7 ml/min eGFR 123.99 BUN/Creatinine Ratio 21.6 H (10-20) Glucose 103 H (70-99(Fasting)) mg/dl Calcium 9.3 (8.6-10.3) mg/dl Total Bilirubin 1.6 H (0.2-1.0) mg/dl AST 99 H (13-39) U/L ALT 40 (7-52) U/L Alkaline Phosphatase 98 (34-104) U/L Troponin I High Sens 4.6 (0-14) pg/ml Total Protein 6.4 (6.0-8.3) gm/dl Albumin 3.7 (3.4-5.0) gm/dl Globulin 2.7 (2.5-4.0) gm/dl Albumin/Globulin Ratio 1.4 (0.9-2) Lipase 23 (11-82) U/L Blood Type A Positive Antibody Screen NEGATIVE Diagnostic Findings Abdomen/Pelvis CT 02/11/25 22:16 Exam(s): CT ABDOMEN + PELVIS With Contrast EXAM: CT Abdomen and Pelvis With Intravenous Contrast CLINICAL HISTORY: Reason for exam: Hematemesis, history of metastatic cancer. TECHNIQUE: Axial computed tomography images of the abdomen and pelvis with intravenous contrast. CTDI is 14 mGy and DLP is 769 mGy-cm. Automated exposure control was utilized for the study. A dose lowering technique was utilized adhering to the principles of ALARA. COMPARISON: 01/30/2025 FINDINGS: ABDOMEN: Liver: Widespread metastatic disease in the liver which has progressed. Gallbladder and bile ducts: The gallbladder appears surgically absent. Pancreas: Unremarkable. Spleen: Spleen mildly enlarged measuring 13 cm. Adrenals: Unremarkable. Kidneys and ureters: Unremarkable. No obstructing stones. No hydronephrosis. Stomach and bowel: Mucosal thickening within the colon consistent with colitis. Mucosal thickening within the gastric antrum. PELVIS: Appendix: No findings to suggest acute appendicitis. Bladder: Unremarkable. Reproductive: Unremarkable as visualized. ABDOMEN and PELVIS: Intraperitoneal space: Trace ascites. No free air. Bones/joints: No acute fracture. Extensive sclerotic metastatic disease. Soft tissues: Unremarkable. Vasculature: Unremarkable. Lymph nodes: Unremarkable. IMPRESSION: 1. Widespread metastatic disease in the liver which has progressed. 2. Trace ascites. 3. Mucosal thickening within the colon consistent with colitis. 4. Mucosal thickening within the gastric antrum consistent with gastritis. 5. Diffuse sclerotic osseous metastatic disease. Electronically signed by: Justin Ballesteros MD 02/11/25 23:41 PM
--- NOTE | 2025-02-12 10:53 | Electrocardiogram Report ---
Test Reason : Blood Pressure : */* mmHG Vent. Rate : 73 BPM Atrial Rate : 73 BPM P-R Int : 148 ms QRS Dur : 78 ms QT Int : 398 ms P-R-T Axes : -18 -12 -16 degrees QTcB Int : 438 ms Normal sinus rhythm Inferior infarct , age undetermined Abnormal ECG When compared with ECG of 31-Jan-2025 11:28, Inferior infarct is now Present Inverted T waves have replaced nonspecific T wave abnormality in Anterior leads Confirmed by Hesham Johnston ([id number]) on 02/12/2025 10:52:56 AM Referred By: REFERRED SELF Confirmed By: Hesham Johnston
--- NOTE | 2025-02-12 11:42 | Hospitalist Progress Note ---
Date of Service February 12, 2025 Assessment & Plan (1) Vomiting: (2) Metastatic disease: Plan 34yo female with history of metastatic breast cancer (lesions to spine, lung, liver, brain) presenting with multiple episodes of vomiting with hematemesis prior to arrival. Patient has had hematemesis on several occasions necessitating hospital admission. Patient had an EGD performed at [facility] [place] which revealed duodenal and esophageal ulcers. #Vomiting/Hematemesis - No vomiting since ED presentation -Advance diet as tolerated, now on regular diet with mild abdominal tenderness -Maintain PIV access - patient with port in place, with second IV site in place -Protonix gtt, Octreotide gtt, Pepcid 20mg IV BID -Zofran IV PRN and Compazine IV PRN ordered, sucralfate added -Considered addition of Dronabinol however this is currently on hospital backorder, can consider addition of this medication upon d/c to assist with acute N/V and abdominal tenderness -GI consultation completed: acute intervention w/ EGD not necessary with only one episode of hematemesis and stable Hgb. Recommend outpatient surgical f/u for potential J-tube placement to allow for adequate nutrition on days patient cannot tolerate PO -Anticipate d/c in AM with resolution of N/V #Metastatic breast cancer -patient currently on chemotherapy with Gemcitabine and Carboplatin -Typically gets 3 week rotations of chemotherapy with the first week consisting of the combination therapy, second week with monotherapy and third week free of medications -Pain control with IV Tylenol, Morphine PRN #Anxiety -Alprazolam PRN - continue home dose -Continue Escitalopram #PPx - SCDs and JAMES stockings Code - FULL Admission and Anticipated Discharge Date Admission Date: February 12, 2025 Supervising Physician Co-Signing Physician Notes I personally examined the patient and verified tan points of history and exam, discussed case, and agree with decision making and plan documented by Dr. Taylor. Patient is a 34-year-old female with history of metastatic breast cancer on chemotherapy presenting with nausea, vomiting, and episode of hematemesis. Patient has had decreased p.o. intake as a result of intractable nausea. GI evaluated patient and does not recommend EGD at this time. On IV pantoprazole and famotidine. Discussed trial of different antiemetics to support p.o. intake. Unfortunately, dronabinol not available as it is backordered, discussed with patient approach to medical cannabis and recommended she discuss with the pharmacist at the dispensary products that may be helpful based off of availability. Patient advancing diet as tolerated. She has 2 young children at home and would like to get home soon as possible. Subjective Elvira Almendarez is seen this AM resting comfortably. Patient was switched from NPO to a full liquid diet today and has been tolerating with some mild abdominal tenderness. Patient denies chest pain, SOB, and MSK complaints. Patient does endorse that her most recent round of chemotherapy a few days ago spiked her nausea and abdominal discomfort, but she does feel that this is slowly resolving. Physical Exam Physical Exam: General: patient resting comfortably, NAD, non-toxic in appearance, answers questions appropriately. Skin: warm, dry, intact HEENT: NC/AT, anicteric sclera, conjunctiva without injection, moist mucus membranes. Heart: +S1/S2, regular, no m/r/g Lungs: equal air entry bilaterally, no rales/rhonchi/wheezes Abd: +BS, soft, NT/ND Ext: warm, no clubbing/cyanosis or edema Neuro: nonfocal, speech intact, no facial droop, moving all extremities. Results & Data Results & Data Vital Signs (Past 12 Hours) Vital Signs Temp Pulse Pulse Resp BP BP Pulse Ox 02/12/25 11:15 36.6 C 19 111/75 98 02/12/25 08:24 02/12/25 07:38 79 02/12/25 07:21 36.6 C 66 15 106/72 96 02/12/25 02:59 71 02/12/25 02:45 02/12/25 02:45 36.4 C L 77 20 130/77 96 02/12/25 02:32 36.6 C 69 18 101/66 97 02/12/25 02:03 81 18 109/80 96 02/12/25 01:36 73 17 108/78 96 02/12/25 01:09 70 18 99 02/12/25 01:01 74 22 126/98 95 02/12/25 00:33 76 23 114/80 96 02/12/25 00:00 80 16 113/77 98 O2 Del Method 02/12/25 11:15 Room Air 02/12/25 08:24 Room Air 02/12/25 07:38 02/12/25 07:21 Room Air 02/12/25 02:59 02/12/25 02:45 Room Air 02/12/25 02:45 Room Air 02/12/25 02:32 Room Air 02/12/25 02:03 Room Air 02/12/25 01:36 Room Air 02/12/25 01:09 Room Air 02/12/25 01:01 Room Air 02/12/25 00:33 Room Air 02/12/25 00:00 Room Air Resident Activity Tracking Resident Involvement: Resident Care Provided Care Provided: Adult Hospital Medicine (2) Metastatic disease Area of secondary neoplastic involvement: unspecified site Qualified Code(s): C79.9 - Secondary malignant neoplasm of unspecified site
[2025-02-12] MEDS: SUCRALFATE 1 GM/10 ML UDC PO PRN (12:49)
[2025-02-12 18:53] LABS: Appearance Urine Cloudy (Clear); Bacteria Urine Automated None Seen (None Seen); Epithelial Cell Urine Auto 0-2 /hpf (0-2); Glucose Urine UA Negative (Negative); RBC Urine Automated 0-2 /hpf (0-2); WBC Urine Automated 0-5 /hpf (0-5)
[2025-02-12] MEDS: PROCHLORPERAZINE 5 MG in SYRINGE 4 ML IV PRN (19:55)
[2025-02-12] MEDS: ESCITALOPRAM OXALATE 10 MG TAB PO SCH (20:29)
[2025-02-13 06:45] LABS: Hematocrit (blood only) 27.9 % (37.0-47.0); Hemoglobin 9.0 g/dl (12.0-16.0); Mean Corpuscular Hemoglobin 30.3 pg (25.0-34.0); Mean Corpuscular Volume 93.9 fL (80.0-100.0); Platelet Count 117 K/uL (130-400); RDW Standard Deviation 69.4 fL (36.4-46.3); Red Blood Count 2.97 M/uL (4.20-5.40); White Blood Count 3.58 K/ul (4.8-10.8)
[2025-02-13 07:08] LABS: Alanine Aminotransferase 70.0 U/L (7-52); Albumin Globulin Ratio 1.4 (0.9-2); Albumin Level 3.0 gm/dl (3.4-5.0); Alkaline Phosphatase 72.0 U/L (34-104); Anion Gap 3.0 (3-11); Bilirubin,Total 1.0 mg/dl (0.2-1.0); Blood Urea Nitrogen 9.0 mg/dl (6-23); Calcium 8.2 mg/dl (8.6-10.3); Carbon Dioxide 31.0 mmol/L (21-32); Chloride 105.0 mmol/L (98-107); Creatinine Clr Calc Pharmacy 152.6 ml/min; Globulin 2.1 gm/dl (2.5-4.0); Glucose 80.0 mg/dl (70-99(Fasting)); Magnesium 1.5 mg/dl (1.7-2.4); Potassium 3.2 mmol/L (3.5-5.1); Sodium 139.0 mmol/L (136-145); Total Protein 5.1 gm/dl (6.0-8.3)
[2025-02-13 07:10] LABS: Anisocytosis Present; Immature Granulocytes # (auto) 0.01 K/uL (0.01-0.20); Immature Granulocytes % (auto) 0.3 %; Tear Drop Cells 1+
[2025-02-13] MEDS: MAGNESIUM SULFATE / D5W 1 GM/100 ML BAG IV SCH (08:17)
--- NOTE | 2025-02-13 09:38 | Radiation OncologyConsultation ---
Date of Consultation February 13, 2025 Assessment & Plan (1) Primary malignant neoplasm of left breast with metastasis to other site: Plan ATTENDING ADDENDUM Assessment: Ms. Almendarez is a 34-year-old female with progressive metastatic breast cancer. The patient is currently symptomatic with hematemesis due to metastatic disease involving the stomach and duodenum as well as left breast pain from advanced disease in the left breast. The patient was scheduled to be seen in the outpatient setting however she is admitted to the hospital. We have been asked to evaluate her regarding palliative radiation therapy. Recommendation: Palliative radiation therapy to stomach/duodenum metastatic cancer as well as left breast cancer. Plan: 1. CT simulation for treatment planning for radiation therapy. Radiation therapy to be delivered between cycles of chemotherapy. 2. Pain control as per medical oncology and primary hospital team. 3. Continue all other cares per primary hospital team and medical oncology. 4. Patient and authorized individuals are encouraged to call us with any further questions or concerns. Rationale/Explanation of Treatment: I explained the indications, alternatives, benefits, risks and side effects of external beam radiation therapy. I then discussed radiation therapy side effects for treatment which include, but are not limited to, skin erythema, dry/moist desquamation of the skin, hyperpigmentation, telangiectasias, damage to the heart and development of cardiovascular disease, damage to the lungs including radiation pneumonitis, pulmonary fibrosis, decrease in pulmonary function, cough, fistula formation, tracheal stenosis, esophageal stenosis, esophageal perforation, dysphagia, nausea, vomiting, ulcers in stomach/bowel, gastritis, gastric perforation, bowel perforation, bowel obstruction, weight loss, dehydration, decreased appetite, liver damage including hepatitis and liver failure, damage to the kidneys including decreased renal function and renal failure, spinal cord damage including myelopathy, fatigue and secondary malignancy. I have explained to the patient that there is an increased risk of overlap from the previous course of radiation therapy and the current course of radiation therapy which can increase the risk of all acute and late side effects of radiation therapy. History of Present Illness Reason for Consultation: Duodenal metastasis with bleeding. Requesting Physician: Beatrice Rivers DO Attending Physician: Beatrice Cristina DO History of Present Illness 04/27/2023. Mammogram diagnostic. IMPRESSION: ACR BI-RADS CATEGORY 0: INCOMPLETE EVALUATION: NEED ADDITIONAL IMAGING EVALUATION Suspicious 5 cm mass and 6.7 x 6.5 cm architectural distortion in the upper outer and lower outer left breast is incompletely characterized on this single left CC tomosynthesis view. The remainder of the imaging evaluation was terminated due to syncopal episode. Recommend additional bilateral diagnostic tomosynthesis mammograms, left breast and left axillary ultrasound for further evaluation, once the patient is stable. 04/27/2023. Patient sent to emergency room after syncopal episode during mammograms. 04/27/2023. Emergency room visit. Emergency room physician did discuss case with neurosurgery team at [facility] who stated there is no urgent need for transfer. Recommended outpatient follow-up with neurosurgery clinic next week. 04/27/2023. CT cervical spine. IMPRESSION: 1. There is a 2 cm lytic lesion within the left side of the C3 vertebral body which extends into the left C3 pedicle. This is highly suspicious for a metastatic focus. 2. Mild indentation at the inferior endplate of C3 consistent with an age- indeterminate pathologic compression fracture. 3. Partially visualized lower cervical and superior mediastinal lymphadenopathy. This is highly suspicious for a neoplastic process. 4. Mild interlobular septal thickening within the lung apices. This could represent mild congestive change. 04/27/2023. CT head. IMPRESSION: No acute intracranial abnormality. 04/27/2023. CT scan of the abdomen/pelvis. IMPRESSION: 1. Right hepatic lesions are concerning for metastatic disease in this patient with history of breast cancer. 2. Retroperitoneal lymph nodes are subcentimeter, nonspecific but likely benign. Prominent nas hepatis lymph nodes are noted. 3. Cholelithiasis without cholecystitis. 04/27/2023. MRI brain. IMPRESSION: 1. Asymmetric T1 hypointense signal within the left frontal bone with minimal underlying dural enhancement. This is consistent with an osseous metastatic lesion. The underlying dural enhancement may be reactive. Early metastatic change would be difficult to exclude. Follow-up recommended to ensure stability. 2. Otherwise, no intracranial lesions identified. 3. The C3 metastatic focus is better appreciated on the same day cervical spine MRI. 4. There is an additional metastatic focus within the left occipital bone near the skull base. 04/27/2023. MRI cervical spine. IMPRESSION: 1. There is evidence of bony metastatic disease involving body of C3 as seen by CT. There is also involvement of the spinous process at this level. 2. There may also be lesions within the left transverse process of T1 as well as the left occiput. 3. The cervical cord is normal in morphology and signal intensity with no abnormal postcontrast enhancement. 4. Pathological lymphadenopathy in the neck as above. This is also typical for metastatic disease. 5. Spondylotic changes as above, greatest at C4-C5. 04/27/2023. CT chest. IMPRESSION: 1. A large and heterogeneously enhancing mass lesion is partially visualized in the left breast. There may be multifocal lesions in the left breast. 2. There are pathologically enlarged left axillary, bilateral supraclavicular, mediastinal, and hilar lymphadenopathy. This is typical for metastatic disease. 3. Foci of intralobular septal thickening and nodularity are seen throughout both lungs as above. Lymphangitic spread of tumor is the diagnosis of exclusion. 4. There is airspace consolidation at the medial left lung base. Correlate clinically for evidence of pneumonia. 5. No destructive bony lesions are identified in the thorax. 6. Additional findings as above. 04/28/2023. Planned IR guided biopsy of liver. 04/28/2023. Radiation oncology consultation. Recommendation is for consideration of palliative radiation therapy to the cervical spine. Neurosurgery consultation is pending will wait until that is completed as well as obtaining tissue diagnosis. 04/28/2023. Left axillary lymph node ultrasound-guided aspiration. Malignant cells consistent with metastatic adenocarcinoma, breast primary, ER positive, NC positive, and HER2/thaddeus negative. 05/20/2023. Status post completion of palliative radiation therapy to the cervical spine. She received 3000 cGy. 10 fractions. 06/03/2023. Pathology review of lymph node biopsies from 04/28/2023. Review performed at [facility]. A. Lymph node, left axilla, biopsy ([id number], 3 slides A1, 04/28/2023.) Metastatic carcinoma of breast primary. B. Lymph node, left axilla, aspiration ([id number], 9 slides A1, 04/28/2023.) Metastatic carcinoma of breast primary ER positive (100%), NC positive (3%), reportedly HER2/thaddeus equivocal (2+) and negative by FISH. 06/16/2023. Medical oncology consultation Dr. Zena [facility]. Liver biopsy completed 06/02/2023. Pathology reviewed. Consistent with ER and NC positive and HER2/thaddeus negative disease. CT chest abdomen pelvis and bone scan. Redemonstrating hepatic, possible lung and osseous metastasis. Planning to repeat CT scans after 3 months of therapy. Begin treatment with ribociclib 600 mg. 3 weeks on 1 week off. Zoladex monthly for 6 months and then every 3 months. Arimidex 1 mg daily. Zometa every 3 months. She is to have follow-up x-ray with Dr. Quezada to evaluate response to radiation to ensure surgical stability is not needed, she is not completed this. MRI of the cervical spine, thoracic and lumbar spine were ordered. Palliative care referral. Repeat MRI of the brain in 3 months. 06/24/2023. Initiation of ribociclib. 07/12/2023. Emergency room evaluation and admission for abdominal pain. Choledocholithiasis. 07/12/2023. CT of abdomen pelvis. 1. 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 2. Cholelithiasis with CT findings suggestive of acute cholecystitis. 3. Choledocholithiasis results in intrahepatic and extrahepatic biliary ductal dilation. 4. No bowel obstruction or bowel wall thickening. 07/13/2023. Medical oncology inpatient consultation (Dr. Zepeda). Patient currently holding anastrozole, ribocicliib and Zoladex. 07/14/2023. Endoscopic retrograde cholangiopancreatic evaluation. Stent placement. 07/16/2023. Robotic laparoscopic cholecystectomy. Path report showed chronic cholecystitis and cholelithiasis. 07/24/2023. Cycle 1 day 1 ribociclib and Arimidex initiation of Zoladex. 07/29/2023. PET/CT. Primary left breast cancer with metastatic lymph nodes in the cervical, axillary, mediastinal, and retroperitoneal chains. Hepatic and osseous metastases are seen. 07/31/2023. Surgical follow-up. Doing well postop. Pathology benign. Will follow-up with GI for ERCP with stent removal. 08/11/2023. Medical oncology follow-up. Proceed with cycle 2 of Ribociclib and hormonal suppression. 08/20/2023. Cycle 1 day 1 ribociclib plus Arimidex. Zoladex. 09/09/2023. CT of the chest. Patient is having left sided breast pain. 1. No acute intrathoracic abnormality. 2. Large malignant left breast mass is stable in size. 3. The lymphatic metastasis appear to have mildly decreased in size from prior suggestive of positive treatment response. No new or progressive lymphadenopathy identified. 4. Increased sclerosis of the multifocal skeletal metastasis may be on a post treatment related basis. 09/18/2023. Medical oncology follow-up. Cycle 3-day 1 ribociclib plus letrozole. Xgeva will start after dental clearance. Patient given Zoladex. Patient noted bilateral hip pain following this injection. 09/21/2023. Medical oncology follow-up (Ta Tobin PA-C). Patient having issues with pain. Prescription given for tramadol. 09/23/2023. CT of the chest abdomen pelvis. Performed at [facility]. Chest impression. 1. Large left breast mass has slightly decreased in size. 2. Negative for lung masses or significant adenopathy. 3. No lesions show increase in sclerosis likely from treatment change. Abdomen and pelvis. 1. There are masses appears to have progressed when compared to outside PET/CT of 07/29/2023. 2. Numerous bony lesions. 3. Negative for new mass or adenopathy. 09/23/2023. Bone scan. Numerous scattered radiotracer avid bone lesions are detected involving the bilateral ribs, cervical, thoracic and lumbar spine. Bilateral femurs, right tibia, certain, calvarium, and bilateral pelvic bones. When compared to previous exam the extent of disease appears progressed. 09/25/2023. MRI of the pelvis. 1. Widespread osseous metastasis throughout the visualized osseous structures of the pelvis and bilateral proximal femurs without evidence of pathologic fracture. 2. Focal cortical erosion of the posterior lateral cortex of the right greater trochanter due to the enhancing metastatic disease. 09/25/2023. MRI of the abdomen. 1. Numerous metastatic lesions within the right lobe of the liver. 2. Metastatic disease and presumed metastatic periportal lymph node. 10/16/2023. Cycle 4-day 1 ribociclib and Arimidex. Zoladex. Zometa. 10/17/2023. Emergency room evaluation. Neck pain, lymphadenopathy. Patient was given Toradol for pain. 10/17/2023. CT of the neck. Lymphadenopathy in the left posterior cervical chain with some soft tissue stranding. Some nodes contain central necrosis. Findings are concerning for met astatic disease the patient with history of breast cancer. 10/21/2023. Radiation oncology follow-up. Patient has been referred back to our office due to the episode of hip pain. She stated this occurred following the injection on 09/18/2023. She has noted that she will have hip pain after she has been very active. 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 Recommendation is for palliative radiation therapy. 10 fractions. 10/22/2023. Faslodex injection. 10/23/2023. Patient will undergo bilateral oophorectomy by Dr. Couch. 11/20/2023. Faslodex and Zometa. 11/23/2023. MRI of the brain. No acute abnormality in particular no evidence of acute infarct or metastatic disease. 11/11/2023. Status post completion of palliative radiation therapy to the pelvis. She received 3000 cGy. 10 fractions. 11/26/2023. PET/CT. Significant interval progression of disease with enlarging left breast mass and increasing cervical, axillary, mediastinal, mesenteric, and retroperitoneal adenopathy as well as marked progression of hepatic metastasis and osseous metastasis. 01/18/2024. CT of the chest abdomen pelvis. Marked interval improvement in the left breast mass. Increasing size and number of sclerotic osseous metastasis. Favorable response to treatment in the liver with interval decrease in size of liver lesions. 01/18/2024. MRI of the abdomen. Positive response of therapy. Mild splenomegaly. 02/08/2024. Emergency room evaluation due to nausea and vomiting. She also had diarrhea. 02/10/2024. Medical oncology follow-up. Patient continues on Enhertu. She continues with Fulvastrint 02/17/2024. Ultrasound-guided biopsy of left breast mass. Path report reveals: Invasive ductal carcinoma, grade 3. ER positive, NC positive and HER2/thaddeus intermediate. 03/04/2024. Radiation oncology follow-up. Patient is doing well in regards to the areas of treatment. She does not have any issues with pelvis or upper femur discomfort. The lymphadenopathy of the neck resolved with the initiation of Enhertu. To have further diagnostic study performed the biopsy of the breast was formed. She has not had any further episodes of the nausea or vomiting as well as diarrhea that occurred previously earlier this month. She felt that this may have occurred due to food poisoning or a virus. 05/01/2024. CT of the chest. 1. Left breast spiculated soft tissue mass likely corresponding to known breast cancer. 2. Right upper lobe areas of ground glass opacity with subpleural reticulation as described. 3. Diffuse sclerotic bony lesions throughout the chest wall and thoracic spine likely metastatic. 4. Multiple hypodense hepatic focal lesions likely metastatic. 5. Overall no significant interval changes. 05/16/2024. PET/CT. Progression of metastatic disease with metabolically active liver lesions and progressing osseous metastasis. 06/09/2024. Bone scan. Numerous bone lesions are redemonstrated. Few shows slight improvement. 06/09/2024. Medical oncology follow-up at [facility]. Review of PET/CT. Plan to initiate Tukysa 300 mg twice daily in combination with Herceptin and Xeloda. Discontinue Enhertu. Plan EGD in 3 months. Await germline testing. 08/03/2024. PET/CT. Findings are consistent with mixed response to treatment. Complete resolution of the previously described widespread bony metastasis. Nonspecific 2nd/3rd intercostal space activity. New segment 7 lesion of the liver. Interval increase in FDG activity associated with left breast cancer. 08/04/2024. Medical oncology follow-up. [facility]. Reviewed PET/CT. Hypermetabolic liver lesions which appeared to be decreasing in size and number. There is increased uptake within the left breast. Plan left breast ultrasound and biopsy. Planning MRI of abdomen. Continuing on current treatment. 08/04/2024. Bilateral breast ultrasound and mammogram post biopsy clip placement. 1.6 x 1.2 x 1.0 cm spiculated mass arising off the inferior aspect of the previously seen matted hypoechoic masslike region in the left breast. No abnormality in the axilla. 08/12/2024. Status post ultrasound-guided biopsy of the left breast mass. Path report reveals: Metastatic carcinoma consistent with breast primary, ER negative, NC negative and HER2/thaddeus positive with FISH negativity. 08/24/2024. Abdominal MRI. Mixed response to therapy with interval improvement in a few of the liver lesions, but interval development of new lesions as well as interval growth of additional liver lesions. 08/25/2024. Medical oncology follow-up. [facility]. Review of studies. Plan to enroll patient into a clinical trial with Zanidatmab. This is given on a compassionate purpose. Follow-up in 6 weeks with laboratory studies and PET/CT imaging. Reviewed pathology of the breast biopsy. 10/10/2024. Nuclear medicine hepatobiliary scan. 1. No evidence for a bile leak status post cholecystectomy. 2. Normal visualization of radiotracer within the common bile duct and small bowel. No scintigraphic evidence for a biliary obstruction although correlation with liver function test is recommended. 10/13/2024. PET/CT. Interval progression of disease with enlarging left breast mass as well as new and enlarging liver lesions. 10/13/2024. Brain MRI. 1. Intermediate 5 mm focus of signal abnormality and restricted diffusion in the uppermost aspect of the right thalamus. New from prior imaging. Surveillance imaging is advised. Appearance raises concern for possible evolving metastatic disease. 2. Intermediate 0.5 cm focus of enhancement and vague signal abnormality in the anteriormost aspect of the right internal capsule, new from prior imaging. Given the possibility of evolving metastatic lesion. Close surveillance imaging is advised. 10/14/2024. Medical oncology follow-up. [facility]. Will start Zanidatmab 1200 mg every 2 weeks. Cycle 1 today. Will discontinue Xeloda, Tukysa and Herceptin due to progression. Signatera testing sent. Continue to follow MRI of the abdomen and brain. PET/CT in 2 months. 10/26/2024. This benign MRI. Cervical spine: 1. Multilevel metastatic disease within the cervical spine. Enhancement is only seen in some of these lesions, indicating some of the lesions may represent healed, sclerotic metastasis. 2. Mild compression fracture of C3 vertebral body. 3. Reversal of the normal cervical lordosis with mild cervical canal narrowing at C3-4 and C4-5. Thoracic spine: Multiple level sclerotic osseous metastasis without significant abnormal enhancement, compatible with healed sclerotic osseous metastasis. Lumbar spine: Multiple sclerotic osseous metastasis without significant abnormal enhancement, compatible with healed sclerotic osseous metastasis. 10/26/2024. Abdominal MRI. 1. Significant interval progression of metastatic disease within the liver. 2. New mild dilatation of the intrahepatic biliary ducts and findings concerning for possible soft tissue infiltration of the hepatic hilum, possibly resulting in biliary stricture. CT may be helpful. 3. Patchy signal abnormalities in the bilateral lung bases which may represent infiltrative versus atelectasis. 10/27/2024. Radiation oncology. [facility]. Jules Wilson, 1. Reviewed clinical history, laboratory workup, and imaging in detail with the patient. 2. I discussed and independently reviewed her MRI of the Spine on 10/26/24 revealed multilevel metastatic disease. Multilevel bone lesions are present throughout these vertebral bodies which are low signal on all sequences. No abnormal enhancement is detected after the infusion of intravenous contrast material. Findings are compatible with healed osseous metastases. Abnormal signal is also noted within the visualized portions of the sacrum and bilateral iliac bones, also consistent with multilevel metastases. 3. I discussed and independently reviewed her MRI of the abdomen on 10/27/24 revealed new lesions have evolved and previously seen lesions have increased in size. New mild dilatation of the intra hepatic biliary ducts and findings concerning for possible soft tissue infiltration of the hepatic hilum, possibly resulting in biliary stricture. Significant interval progression of metastatic disease within the liver. 4. Based upon the recent mid back symptoms, I recommended a radiation oncology consult and evaluation. Discussed the case in detail with Dr. Resendez who re commended a steroid Oosepak for the patient which appears Reasonable 5. Discussed and reviewed the 2D echocardiogram, which revealed a preserved ejection fraction on 09/12/24. Plan to repeat in 3 months. 6. CBC and CMP reviewed which revealed mild normocytic normochromic anemia, grade 1, cytopenia, grade 1 leukopenia secondary to treatment. Slight rise in the liver function test but are grade 1 based upon criteria. Ongoing hyperammonemia which was discussed with the patient 7 Recommended to increase protein intake. 8 TSHat0.124 monitor closely. 9. Slight rise in the CEA up to 34.3. 10. Decrease in the CA 15-3 down to 35.4. 11 Plan to repeat a MRI of the brain in 2 months to reassess the patient clinically. 12. Arrange a CT scan in 2 months to assess the current response to treatment as well as possible progression of disease. 13. Plan to continue cycle 2 of treatment with Zanidatmab 1200mg every 2 weeks which will be given given today. Plan to continue until progression of disease or development of intolerance. Discussed and reviewed the side effects with the patient 14. Continue Zofran and Compazine to prevent nausea and vomiting. 15 Continue to monitor and the echocardiogram every 3 months with treatment. Her last endocardium was completed 10/14/2024 which revealed a preserved ejection fraction. 16. Plan for a follow-up visit in 2 weeks to reassess the patient clinically, review labs, review imaging, and plan further treatment and care. 11/11/2024. Inpatient hospitalization. Uncontrolled pain. Had been on oxycodone. Now having increased malignant pain. Treated with oral and IV analgesics. 11/11/2024. Follow-up visit. CA 153. Elevated at 44.50. 11/19/2024. Emergency room evaluation and admission due to abdominal pain. CT of the abdomen and pelvis. New numerous liver metastases. New peritoneal carcinomatosis and mild ascites. New small left pleural effusion. 11/22/2024. Initiation of gemcitabine and carboplatin. Cycle 1 day 1. 11/24/2024. Medical oncology follow-up (Dr. Zepeda). Awaiting restaging from [facility]. Recommendation for urgent brain MRI. 11/24/2024. Referral from medical oncology. 11/29/2024. Medical oncology follow-up. Proceed with cycle 1 day 8 of gemcitabine, carboplatin. For brain MRI next week. 12/05/2024. Brain MRI. Progressive small enhancing lesions in the right caudate nucleus consistent with metastatic disease. No other metastatic disease seen of the brain. 12/07/2024. Emergency room evaluation at [facility]. The patient received 1 infusion of platelets yesterday. She has no active bleeding. Patient presented due to palpitations and hypokalemia. EKG showed normal sinus rhythm. Laboratory studies showed no elevation of troponin. She will keep her follow-up appointment with medical oncology tomorrow. 12/08/2024. CT of the chest, abdomen pelvis. Mass of the left outer breast measures approximately 6 cm in maximum dimension and multiple tiny satellite foci are noted. A few of the areas of satellite nodularity approach the dermis and adjacent dermis is thickened. The disease appears to extend to the retroareolar region. Numerous hypoenhancing liver lesions are present with ill- defined margins, compatible with multifocal liver metastasis. It is difficult to determine the exact size of the lesions. At segment 6 measuring 2.6 cm previously was 2.9 cm. Another lesion in the right posterior dome measures 3.3 cm unchanged in size. A posterior right lobe lesion in segment 7 measures 1.9 cm previously was 2.2 cm. Soft tissue infiltration can be seen in the hepatic hilum and portacaval region, compatible with infiltrating metastatic disease. Widespread sclerotic osseous metastasis are similar to prior imaging. 12/12/2024. Patient presents to radiation oncology. There has been progression noted of the brain. Small enhancing lesions. She has been neurologically stable. She has had a significant weight loss. The chemotherapy she is receiving causes her to have nausea and decreased appetite. Due to the progression in the brain she has been referred back to radiation oncology. She does feel that the breast mass is now having retraction of the skin. There is an associated generalized discomfort. There is been no breakthrough of the skin. Studies have shown that the mass is approaching the skin. [facility]20[facility] - Esophageal ulcer with stigmata of recent bleeding. Hemostatic spray applied. - Gastritis with hemorrhage. - Acquired duodenal stenosis. - Non-bleeding duodenal ulcer with no stigmata of bleeding. Hemostatic spray applied. Evidence of likely eroding mass into duodenal bulb with bleeding on contact - No specimens collected. 01/18/2025. Medical oncology follow-up. Proceed with current treatment gemcitabine, carboplatin, trastuzumab and epratuzumab. Next cycle tomorrow. 01/30/2025-02/01/2025. Hospital admission due to hematemesis. Known duodenal mass which was eroding into the duodenal bulb with bleeding. Previous finding on EGD while at [place]. GI consultation. Continue Protonix 40 mg twice daily and Carafate 1 g 4 times daily. Platelets were low and she was transfused 2 units of platelets. 02/10/2025. Recent received planned cycle of chemotherapy. 02/11/2025. Patient presented to the emergency room. She had been having nausea and recurrent vomiting. Emesis dark brown in color with areas of bright red blood. She was hospitalized for observation. She was treated with IV Zofran. 02/11/2025. CT of the abdomen pelvis. 1. Widespread metastatic disease in the liver which has progressed. 2. Trace ascites. 3. Mucosal thickening within the colon consistent with colitis. 4. Mucosal thickening within the gastric antrum consistent with gastritis. 5. Diffuse sclerotic osseous metastatic disease. 02/13/2025. Radiation oncology consultation. Patient had been initially scheduled to be seen in our office today in follow-up. She has been undergoing chemotherapy. We have had previous discussion of the treatment to the duodenal mass which is causing intermittent bleeding. At that time the patient was scheduled for a follow-up at [facility]. She completed that visit and has been receiving chemotherapy here. She has had 2 admissions for bleeding. Last episode of vomiting was last evening. She denies melena. She denies epigastric pain. The breast mass currently is not changed with the initiation of the chemotherapy. The breast mass encompasses the entire breast. She has not nipple retraction and now is having drainage from the nipple. Allergies Allergy/AdvReac Type Severity Reaction Status Date / Time No Known Drug Allergies Allergy Unknown Verified 02/13/25 17:15 Home Medications Medication Instructions Recorded Confirmed Type breast pump #1 ea 05/08/22 02/03/25 Rx ascorbic acid (vitamin C) 500 mg 500 mg PO QAM 07/12/23 02/11/25 History tablet (Vitamin C) multivitamin 1 tab PO DAILY ##0 07/12/23 02/11/25 History prochlorperazine maleate 10 mg 10 mg PO QID PRN Nausea 07/12/23 02/11/25 History tablet (Compazine) fulvestrant 250 mg/5 mL 250 mg IM MONTHLY 10/09/23 02/11/25 History intramuscular syringe (Faslodex) tramadol 50 mg tablet 50 mg PO BID PRN Pain 10/21/23 02/11/25 History diphenoxylate-atropine 2.5 1 tab PO Q6H PRN Diarrhea 03/04/24 02/11/25 History mg-0.025 mg tablet (Lomotil) cholecalciferol (vitamin D3) 25 25 mcg PO DAILY 06/23/24 02/11/25 History mcg (1,000 unit) tablet (Vitamin D3) escitalopram oxalate 10 mg tablet 10 mg PO HS 11/19/24 02/11/25 History (Lexapro) ondansetron 8 mg disintegrating 8 mg PO TID PRN Nausea And Vomiting 11/19/24 02/11/25 History tablet oxycodone 10 mg tablet 10 mg PO Q8 PRN Pain 11/19/24 02/11/25 History calcium carbonate (Calcium 500) 500 mg PO BID 12/05/24 02/11/25 History alprazolam 0.5 mg tablet (Xanax) 0.5 mg PO Q8H PRN Anxiety 12/12/24 02/11/25 History potassium chloride 20 mEq oral 20 meq PO DAILY #30 ea 12/13/24 02/11/25 Rx packet pantoprazole 40 mg tablet,delayed 40 mg PO BID #30 tabs 02/01/25 02/11/25 Rx release sucralfate 100 mg/mL oral 1 g (10 mL) PO QID #400 mL 02/01/25 02/11/25 Rx suspension Patient History Medical History Hematemesis Anemia Metastatic cancer Breast cancer metastasized to liver Hx of nausea Breast cancer metastasized to liver Most recent chemo 11/22/24 per [place] record Elevated liver enzymes History of anemia History of anxiety Hx of jaundice Cancer with mets to liver Hypocalcemia Hypokalemia History of cervical dysplasia History of pneumonia (04/2023) 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, ER/Pr+, Her 2 neg History of COVID-19 11/2021- "mild symptoms" > resolved Missed Hx Surgical History Port-A-Cath in place (11/11/23) Insertion of Access Port with Fluoroscopy Right Internal Jugular Vein Hx of bilateral oophorectomy (10/2023) History of ERCP 07/14/23, [facility] Hx laparoscopic cholecystectomy Robotic Laparoscopic Cholecystectomy: Grade 1 view, MAC#3, ETT 7.0 at [facility] History of dilatation and curettage S/p bilateral myringotomy with tube placement S/P tympanoplasty Right x2 History of low transverse section x2, with tubal ligation S/P wisdom tooth extraction S/P LEEP of cervix Family History Grandmother (Maternal) Breast cancer Aunt Breast cancer Grandfather Heart murmur Father Family history of reaction to anesthesia nausea/vomiting Other Twins, both liveborn Social History Smoking Status: Never smoker Tobacco Type: Cigarettes Second Hand Exposure: No; Do You Dip or Chew Tobacco: No; Hx Alcohol Use: No Hx Substance Use: Yes Last Used Substance: Days (ago) Substance Use Type Other:: edibles or topical Preferred Language: Amharic Communication Ability: Effective Visual Impairment: No Limitations Disaster Response Director Required: No Beliefs That Will Affect Care: None marital status: marital status details: Austin Almendarez ([phone] Current Living Situation: Spouse Current Living Situation Comment: and two children 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 Bone metastasis. 12/05/2024. Brain metastasis. Treatment: 05/20/2023. Status post completion of palliative radiation therapy to the cervi [place] spine. She received 3000 cGy. 10 fractions. 11/11/2023. Status post completion of palliative radiation therapy to the pelvis. She received 3000 cGy. 10 fractions. 10/14/2024. Start Zanidatmab 1200 mg every 2 weeks. Cycle 1 today. Will discontinue Xeloda, Tukysa and Herceptin due to progression. . Cycle 2. 11/22/2024. Initiation of gemcitabine and carboplatin. 01/13/2025. Status post completion of stereotactic radiation therapy to the brain. Utilizing volumetric modulated arc therapy. She received. 3000 cGy. Treatment completed in 5 fractions. Review of Systems Review of Systems: 13 point review of system negative other than what is mentioned in the history of present illness. She does have some mild thoracic spine discomfort. Physical Exam Constitutional: WD/WN, vitals as above Eyes: PERRL, conjunctivae normal, anicteric sclerae ENMT: Ears: no hearing impairment Neck: trachea midline, no thyromegaly Respiratory: normal respiratory effort, lungs clear to auscultation Cardiovascular: RRR, no murmur, no edema Chest (Breasts): Additional Comments: Large left breast mass. This encompasses nearly the entire breast. There is generalized tenderness. There is nipple retraction. There is eschar at the nipple. Small of drainage is noted on her hospital gown. Gastrointestinal (Abdomen): normal bowel sounds, soft, nontender, no hepatosplenomegaly Skin: no rashes, warm and dry + pallor Psychiatric: A+Ox3, euthymic affect Lymphatic: no cervical or axillary lymphadenopathy Results (Rad Onc) Pathology Results: were reviewed and pertinent findings noted in HPI Imaging Studies: were reviewed and pertinent findings noted in HPI Time Spent Midlevel I spent [20] minutes in preparation for this follow up evaluation including reviewing all the clinical records, reviewing laboratory studies, pathology reports and imaging results. I spent [25] minutes with direct face to face interaction with the patient and/or family including performing a physical exam and answering all questions. I spent [10] minutes documenting this patient's visit. Attending I spent 10 minutes in preparation for this follow up evaluation including reviewing all the clinical records, reviewing laboratory studies, pathology reports and imaging results. I spent 20 minutes with direct face to face interaction with the patient and/or family including performing a physical exam and answering all questions. I spent 10 minutes documenting this patient's visit. I spent 10 minutes speaking with the following providers regarding this patient's care: Dr. Zepeda. PG Care Time/CCT Total # of Minutes Spent Total Time Spent with Patient: Total time spent is greater than 50% in coordination of care (as documented) at patient's floor/unit and/or counseling patient: Coding Level of Care Code 42245 IN/OBS CONSULT LVL 5,80M Diagnoses Primary malignant neoplasm of left breast with metastasis to other site C50.912
[2025-02-13] MEDS: CEFEPIME 2000MG 2,000 MG/20 ML SYR IV SCH (09:41)
[2025-02-13] MEDS: POTASSIUM CHLORIDE 20 MEQ/15 ML UDC PO SCH (11:24)
[2025-02-13] MEDS: D5NSS + 20MEQ KCL 20 MEQ/1,000 ML BAG IV SCH (13:03)
[2025-02-13 15:55] LABS: Anion Gap 4.0 (3-11); Blood Urea Nitrogen 8.0 mg/dl (6-23); Calcium 7.9 mg/dl (8.6-10.3); Carbon Dioxide 29.0 mmol/L (21-32); Chloride 104.0 mmol/L (98-107); Creatinine Clr Calc Pharmacy 159.9 ml/min; Glucose 104.0 mg/dl (70-99(Fasting)); Magnesium 2.3 mg/dl (1.7-2.4); Potassium 3.4 mmol/L (3.5-5.1); Sodium 137.0 mmol/L (136-145)
--- NOTE | 2025-02-13 16:38 | Hospitalist Progress Note ---
Date of Service February 13, 2025 Assessment & Plan (1) Vomiting: (2) Metastatic disease: Plan 34yo female with history of metastatic breast cancer (lesions to spine, lung, liver, brain) presenting with multiple episodes of vomiting with hematemesis prior to arrival. Patient has had hematemesis on several occasions necessitating hospital admission. Patient had an EGD performed at [facility] which revealed duodenal and esophageal ulcers. dc barrier, ongoing inability to tolerate liquid, hypokalemia she has active vomiting episode when I evaluated her at 4:30pm #Vomiting/Hematemesis - No vomiting since ED presentation on evening, downgrade from regular to clear liquid, reglan -Maintain PIV access - patient with port in place, with second IV site in place -Protonix gtt, Octreotide gtt, Pepcid 20mg IV BID PRN reglan, off compazine can add megace -GI consultation completed: acute intervention w/ EGD not necessary with only one episode of hematemesis and stable Hgb. Recommend outpatient surgical f/u for potential J-tube placement to allow for adequate nutrition on days patient cannot tolerate PO hyokalemia, she's on dextrose with 20meq kcl #Metastatic breast cancer -patient currently on chemotherapy with Gemcitabine and Carboplatin -Typically gets 3 week rotations of chemotherapy with the first week consisting of the combination therapy, second week with monotherapy and third week free of medications -Pain control with IV Tylenol, Morphine PRN #Anxiety -Alprazolam PRN - continue home dose -Continue Escitalopram #PPx - SCDs and JAMES stockings Code - FULL Admission and Anticipated Discharge Date Admission Date: February 12, 2025 Subjective she's has significant nausea and vomiting and did not tolerate liquid she's has hypokalemia, no abdominal pain needing downgrade to clear diet for dinner switch from compazine to reglan Physical Exam Physical Exam: VITALS: Reviewed. WEIGHT/BMI reviewed. GEN: Healthy appearing, well-developed, NAD. -Head: NC/AT; -Mouth and throat: MMM. Normal gums, muc salena, palate,. Good dentition. NECK: Supple, with no masses. CV: RRR, no m/r/g. + for chemoport LUNGS: CTAB, no w/r/c. ABD: Soft, NT/ND, NBS, no masses or organomegaly. : N/A Results & Data Results & Data Vital Signs (Past 12 Hours) Vital Signs Temp Pulse Pulse Resp BP Pulse Ox O2 Del Method 02/13/25 16:04 36.3 C L 63 18 120/81 95 Room Air 02/13/25 15:24 73 02/13/25 11:47 36.3 C L 69 18 124/87 100 Room Air 02/13/25 08:00 73 02/13/25 07:47 Room Air 02/13/25 07:44 36.7 C 58 L 20 109/70 99 Room Air Laboratory Results Laboratory Results - last 72 hr 02/11/25 02/11/25 02/12/25 22:22 22:25 18:40 WBC 7.48 RBC 3.91 L Hgb 11.4 L Hct 35.3 L MCV 90.3 MCH 29.2 MCHC 32.3 RDW Std Deviation 65.9 H RDW Coeff of Ara 21.2 H Plt Count 162 MPV 10.3 Immature Gran % (Auto) 0.4 Neut % (Auto) 93.3 Lymph % (Auto) 2.3 [place] % (Auto) 3.7 Eos % (Auto) 0.0 Baso % (Auto) 0.3 Neut # (Auto) 6.98 H Lymph # (Auto) 0.17 L [place] # (Auto) 0.28 Eos # (Auto) 0.00 Baso # (Auto) 0.02 Immature Gran # (Auto) 0.03 Anisocytosis Present Tear Drop Cells 2+ Acanthocytes (Spur) 1+ PT 12.0 INR 1.1 Sodium 139 Potassium 3.4 L Chloride 103 Carbon Dioxide 25 Anion Gap 11 BUN 11 Creatinine 0.51 L Est Cr Clr Drug Dosing 131.7 eGFR 123.99 BUN/Creatinine Ratio 21.6 H Glucose 103 H Calcium 9.3 Phosphorus Magnesium Total Bilirubin 1.6 H AST 99 H ALT 40 Alkaline Phosphatase 98 Troponin I High Sens 4.6 Total Protein 6.4 Albumin 3.7 Globulin 2.7 Albumin/Globulin Ratio 1.4 Lipase 23 Urine Color Dark Yellow Urine Appearance Cloudy A Urine pH 6.0 Ur Specific Ken[place] > 1.045 H Urine Protein 1+ H Urine Glucose (UA) Negative Urine Ketones 1+ H Urine Blood Negative Urine Nitrite Negative Urine Bilirubin 1+ H Urine Urobilinogen Negative Ur Leukocyte Esterase Trace H Urine WBC (Auto) 0-5 Urine RBC (Auto) 0-2 U Hyaline Cast (Auto) 3-5 H U Epithel Cells (Auto) 0-2 Urine Bacteria (Auto) None Seen Urine Comment Blood Type A Positive Antibody Screen NEGATIVE 02/13/25 02/13/25 06:04 15:11 WBC 3.58 L RBC 2.97 L Hgb 9.0 L Hct 27.9 L MCV 93.9 MCH 30.3 MCHC 32.3 RDW Std Deviation 69.4 H RDW Coeff of Ara 20.2 H Plt Count 117 L MPV 10.7 Immature Gran % (Auto) 0.3 Neut % (Auto) 91.6 Lymph % (Auto) 5.3 [place] % (Auto) 1.7 Eos % (Auto) 0.8 Baso % (Auto) 0.3 Neut # (Auto) 3.28 Lymph # (Auto) 0.19 L [place] # (Auto) 0.06 L Eos # (Auto) 0.03 Baso # (Auto) 0.01 Immature Gran # (Auto) 0.01 Anisocytosis Present Tear Drop Cells 1+ Acanthocytes (Spur) PT INR Sodium 139 137 Potassium 3.2 L 3.4 L Chloride 105 104 Carbon Dioxide 31 29 Anion Gap 3 4 BUN 9 8 Creatinine 0.44 L 0.42 L Est Cr Clr Drug Dosing 152.6 159.9 eGFR 128.48 129.93 BUN/Creatinine Ratio 20.5 H 19.0 Glucose 80 104 H Calcium 8.2 L 7.9 L Phosphorus 2.6 Magnesium 1.5 L 2.3 Total Bilirubin 1.0 D AST 135 H ALT 70 H Alkaline Phosphatase 72 Troponin I High Sens Total Protein 5.1 L D Albumin 3.0 L Globulin 2.1 L Albumin/Globulin Ratio 1.4 Lipase Urine Color Urine Appearance Urine pH Ur Specific [place] Urine Protein Urine Glucose (UA) Urine Ketones Urine Blood Urine Nitrite Urine Bilirubin Urine Urobilinogen Ur Leukocyte Esterase Urine WBC (Auto) Urine RBC (Auto) U Hyaline Cast (Auto) U Epithel Cells (Auto) Urine Bacteria (Auto) Urine Comment Blood Type Antibody Screen Diagnostic Findings Laboratory Results - last 72 hr 02/11/25 02/11/25 02/12/25 22:22 22:25 18:40 WBC 7.48 RBC 3.91 L Hgb 11.4 L Hct 35.3 L MCV 90.3 MCH 29.2 MCHC 32.3 RDW Std Deviation 65.9 H RDW Coeff of Ara 21.2 H Plt Count 162 MPV 10.3 Immature Gran % (Auto) 0.4 Neut % (Auto) 93.3 Lymph % (Auto) 2.3 [place] % (Auto) 3.7 Eos % (Auto) 0.0 Baso % (Auto) 0.3 Neut # (Auto) 6.98 H Lymph # (Auto) 0.17 L [place] # (Auto) 0.28 Eos # (Auto) 0.00 Baso # (Auto) 0.02 Immature Gran # (Auto) 0.03 Anisocytosis Present Tear Drop Cells 2+ Acanthocytes (Spur) 1+ PT 12.0 INR 1.1 Sodium 139 Potassium 3.4 L Chloride 103 Carbon Dioxide 25 Anion Gap 11 BUN 11 Creatinine 0.51 L Est Cr Clr Drug Dosing 131.7 eGFR 123.99 BUN/Creatinine Ratio 21.6 H Glucose 103 H Calcium 9.3 Phosphorus Magnesium Total Bilirubin 1.6 H AST 99 H ALT 40 Alkaline Phosphatase 98 Troponin I High Sens 4.6 Total Protein 6.4 Albumin 3.7 Globulin 2.7 Albumin/Globulin Ratio 1.4 Lipase 23 Urine Color Dark Yellow Urine Appearance Cloudy A Urine pH 6.0 Ur Specific [place] > 1.045 H Urine Protein 1+ H Urine Glucose (UA) Negative Urine Ketones 1+ H Urine Blood Negative Urine Nitrite Negative Urine Bilirubin 1+ H Urine Urobilinogen Negative Ur Leukocyte Esterase Trace H Urine WBC (Auto) 0-5 Urine RBC (Auto) 0-2 U Hyaline Cast (Auto) 3-5 H U Epithel Cells (Auto) 0-2 Urine Bacteria (Auto) None Seen Urine Comment Blood Type A Positive Antibody Screen NEGATIVE 02/13/25 02/13/25 06:04 15:11 WBC 3.58 L RBC 2.97 L Hgb 9.0 L Hct 27.9 L MCV 93.9 MCH 30.3 MCHC 32.3 RDW Std Deviation 69.4 H RDW Coeff of Ara 20.2 H Plt Count 117 L MPV 10.7 Immature Gran % (Auto) 0.3 Neut % (Auto) 91.6 Lymph % (Auto) 5.3 [place] % (Auto) 1.7 Eos % (Auto) 0.8 Baso % (Auto) 0.3 Neut # (Auto) 3.28 Lymph # (Auto) 0.19 L [place] # (Auto) 0.06 L Eos # (Auto) 0.03 Baso # (Auto) 0.01 Immature Gran # (Auto) 0.01 Anisocytosis Present Tear Drop Cells 1+ Acanthocytes (Spur) PT INR Sodium 139 137 Potassium 3.2 L 3.4 L Chloride 105 104 Carbon Dioxide 31 29 Anion Gap 3 4 BUN 9 8 Creatinine 0.44 L 0.42 L Est Cr Clr Drug Dosing 152.6 159.9 eGFR 128.48 129.93 BUN/Creatinine Ratio 20.5 H 19.0 Glucose 80 104 H Calcium 8.2 L 7.9 L Phosphorus 2.6 Magnesium 1.5 L 2.3 Total Bilirubin 1.0 D AST 135 H ALT 70 H Alkaline Phosphatase 72 Troponin I High Sens Total Protein 5.1 L D Albumin 3.0 L Globulin 2.1 L Albumin/Globulin Ratio 1.4 Lipase Urine Color Urine Appearance Urine pH Ur Specific [place] Urine Protein Urine Glucose (UA) Urine Ketones Urine Blood Urine Nitrite Urine Bilirubin Urine Urobilinogen Ur Leukocyte Esterase Urine WBC (Auto) Urine RBC (Auto) U Hyaline Cast (Auto) U Epithel Cells (Auto) Urine Bacteria (Auto) Urine Comment Blood Type Antibody Screen PG Care Time/CCT Total # of Minutes Spent Total Time Spent with Patient: Total time spent is greater than 50% in coordination of care (as documented) at patient's floor/unit and/or counseling patient: Coding Level of Care Code 49244 SUB INP/OBS CARE 2/35MIN Diagnoses Vomiting R11.10 Malignant neoplasm metastatic to bone marrow C79.9 Area of secondary neoplastic involvement: unspecified site Time Spent (min) 35 (2) Metastatic disease Area of secondary neoplastic involvement: unspecified site Qualified Code(s): C79.9 - Secondary malignant neoplasm of unspecified site
[2025-02-13] MEDS: METOCLOPRAMIDE HCL INJ 5 MG/ML 2 ML VIAL IV PRN (17:12)
[2025-02-13] MEDS: SUCRALFATE 1 GM/10 ML UDC PO SCH (17:17)
[2025-02-13] MEDS: diphenhydrAMINE 50 MG/ML VIAL IV STA (22:04)
[2025-02-14] MEDS: HYOSCYAMINE SULFATE 0.125 MG TAB SL PRN (10:07)
[2025-02-14] MEDS: POTASSIUM CHLORIDE / WTR 20 MEQ/100 ML PLCT IV SCH (10:48)
[2025-02-14 15:02] LABS: Anion Gap 5.0 (3-11); Blood Urea Nitrogen 4.0 mg/dl (6-23); Calcium 7.6 mg/dl (8.6-10.3); Carbon Dioxide 27.0 mmol/L (21-32); Chloride 108.0 mmol/L (98-107); Creatinine Clr Calc Pharmacy 156.2 ml/min; Glucose 167.0 mg/dl (70-99(Fasting)); Potassium 3.6 mmol/L (3.5-5.1); Sodium 140.0 mmol/L (136-145)
--- NOTE | 2025-02-14 15:35 | Hospitalist Progress Note ---
Date of Service February 14, 2025 Assessment & Plan (1) Vomiting: (2) Metastatic disease: Plan 34yo female with history of metastatic breast cancer (lesions to spine, lung, liver, brain) presenting with multiple episodes of vomiting with hematemesis prior to arrival. Patient has had hematemesis on several occasions necessitating hospital admission. Patient had an EGD performed at [facility] [place] which revealed duodenal and esophageal ulcers. #Vomiting/Hematemesis - No vomiting since ED presentation she's on dextrose with 20meq kcl on evening, downgrade from regular to clear liquid, reglan -Maintain PIV access - patient with port in place, with second IV site in place -Protonix gtt, Octreotide gtt, Pepcid 20mg IV BID PRN reglan, off compazine -GI consultation completed: acute intervention w/ EGD not necessary with only one episode of hematemesis and stable Hgb. Recommend outpatient surgical f/u for potential J-tube placement to allow for adequate nutrition on days patient cannot tolerate PO hyokalemia, she's on dextrose with 20meq kcl #Metastatic breast cancer oncology requested that palliative care to be involved. -patient currently on chemotherapy with Gemcitabine and Carboplatin -Typically gets 3 week rotations of chemotherapy with the first week consisting of the combination therapy, second week with monotherapy and third week free of medications -Pain control with IV Tylenol, Morphine PRN #Anxiety -Alprazolam PRN - continue home dose -Continue Escitalopram #PPx - SCDs and JAMES stockings Code - FULL Admission and Anticipated Discharge Date Admission Date: February 12, 2025 Subjective she's was downgrade to clear diet last night started on reglan, spoke with oncology Dr. Zepeda, who concern about risk of infection with G tube and J-tube no worsening abdominal pain no melena, no bloody stool oncology requested that palliative care to be involved. Review of Systems Review of Systems: Constitutional: No Weight Change, No Fever, No Chills, No Night Sweats, No Fatigue, No Malaise Cardiovascular: No Chest Pain, No SOB, No PND, No Dyspnea on Exertion, No Orthopnea, No Claudication, No Edema, No Palpitations Respiratory: No Cough, No Sputum, No Wheezing, No Smoke Exposure, No Dyspnea Gastrointestinal: + for nausea and vomiting; + for spasm. no melena, no hematochezia. Musculoskeletal: No Arthralgias, No Myalgias, No Joint Swelling, No Joint Stiffness, No Back Pain, No Neck Pain, No Injury History Neuro: No Weakness, No Numbness, No Paresthesias, No Loss of Consciousness, No Syncope, No Dizziness, No Headache, No Coordination Changes, No Recent Falls Heme/Lymph: No Bruising, No Bleeding, No Transfusions History, No Lymphadenopathy Physical Exam Physical Exam: VITALS: Reviewed. WEIGHT/BMI reviewed. GEN: Healthy appearing, well-developed, NAD. -Head: NC/AT; -Eyes: PERRL, -Mouth and throat: MMM. Normal gums, muc salena, palate,. Good dentition. NECK: Supple, with no masses. CV: RRR, no m/r/g. + for chemoport LUNGS: CTAB, no w/r/c. ABD: soft to touch; no ascites; no epigastric tenderness. SKIN: Warm, well perfused. No skin rashes or abnormal lesions. MSK: No deformities, Normal gait. EXT: No clubbing, cyanosis, or edema. NEURO: AAox3 Results & Data Results & Data Vital Signs (Past 12 Hours) Vital Signs Temp Pulse Pulse Resp BP Pulse Ox O2 Del Method 02/14/25 14:42 67 02/14/25 10:58 36.6 C 70 20 115/72 97 Room Air 02/14/25 10:26 Room Air 02/14/25 07:36 36.4 C L 71 18 107/73 98 Room Air 02/14/25 05:52 76 Laboratory Results Laboratory Results - last 72 hr 02/11/25 02/11/25 02/12/25 22:22 22:25 18:40 WBC 7.48 RBC 3.91 L Hgb 11.4 L Hct 35.3 L MCV 90.3 MCH 29.2 MCHC 32.3 RDW Std Deviation 65.9 H RDW Coeff of Ara 21.2 H Plt Count 162 MPV 10.3 Immature Gran % (Auto) 0.4 Neut % (Auto) 93.3 Lymph % (Auto) 2.3 [place] % (Auto) 3.7 Eos % (Auto) 0.0 Baso % (Auto) 0.3 Neut # (Auto) 6.98 H Lymph # (Auto) 0.17 L [place] # (Auto) 0.28 Eos # (Auto) 0.00 Baso # (Auto) 0.02 Immature Gran # (Auto) 0.03 Anisocytosis Present Tear Drop Cells 2+ Acanthocytes (Spur) 1+ PT 12.0 INR 1.1 Sodium 139 Potassium 3.4 L Chloride 103 Carbon Dioxide 25 Anion Gap 11 BUN 11 Creatinine 0.51 L Est Cr Clr Drug Dosing 131.7 eGFR 123.99 BUN/Creatinine Ratio 21.6 H Glucose 103 H Calcium 9.3 Phosphorus Magnesium Total Bilirubin 1.6 H AST 99 H ALT 40 Alkaline Phosphatase 98 Troponin I High Sens 4.6 Total Protein 6.4 Albumin 3.7 Globulin 2.7 Albumin/Globulin Ratio 1.4 Lipase 23 Urine Color Dark Yellow Urine Appearance Cloudy A Urine pH 6.0 Ur Specific [place] > 1.045 H Urine Protein 1+ H Urine Glucose (UA) Negative Urine Ketones 1+ H Urine Blood Negative Urine Nitrite Negative Urine Bilirubin 1+ H Urine Urobilinogen Negative Ur Leukocyte Esterase Trace H Urine WBC (Auto) 0-5 Urine RBC (Auto) 0-2 U Hyaline Cast (Auto) 3-5 H U Epithel Cells (Auto) 0-2 Urine Bacteria (Auto) None Seen Urine Comment Blood Type A Positive Antibody Screen NEGATIVE 02/13/25 02/13/25 02/14/25 06:04 15:11 14:30 WBC 3.58 L RBC 2.97 L Hgb 9.0 L Hct 27.9 L MCV 93.9 MCH 30.3 MCHC 32.3 RDW Std Deviation 69.4 H RDW Coeff of Ara 20.2 H Plt Count 117 L MPV 10.7 Immature Gran % (Auto) 0.3 Neut % (Auto) 91.6 Lymph % (Auto) 5.3 [place] % (Auto) 1.7 Eos % (Auto) 0.8 Baso % (Auto) 0.3 Neut # (Auto) 3.28 Lymph # (Auto) 0.19 L [place] # (Auto) 0.06 L Eos # (Auto) 0.03 Baso # (Auto) 0.01 Immature Gran # (Auto) 0.01 Anisocytosis Present Tear Drop Cells 1+ Acanthocytes (Spur) PT INR Sodium 139 137 140 Potassium 3.2 L 3.4 L 3.6 Chloride 105 104 108 H Carbon Dioxide 31 29 27 Anion Gap 3 4 5 BUN 9 8 4 L Creatinine 0.44 L 0.42 L 0.43 L Est Cr Clr Drug Dosing 152.6 159.9 156.2 eGFR 128.48 129.93 129.19 BUN/Creatinine Ratio 20.5 H 19.0 9.3 L Glucose 80 104 H 167 H Calcium 8.2 L 7.9 L 7.6 L Phosphorus 2.6 Magnesium 1.5 L 2.3 Total Bilirubin 1.0 D AST 135 H ALT 70 H Alkaline Phosphatase 72 Troponin I High Sens Total Protein 5.1 L D Albumin 3.0 L Globulin 2.1 L Albumin/Globulin Ratio 1.4 Lipase Urine Color Urine Appearance Urine pH Ur Specific [place] Urine Protein Urine Glucose (UA) Urine Ketones Urine Blood Urine Nitrite Urine Bilirubin Urine Urobilinogen Ur Leukocyte Esterase Urine WBC (Auto) Urine RBC (Auto) U Hyaline Cast (Auto) U Epithel Cells (Auto) Urine Bacteria (Auto) Urine Comment Blood Type Antibody Screen PG Care Time/CCT Total # of Minutes Spent Total Time Spent with Patient: Total time spent is greater than 50% in coordination of care (as documented) at patient's floor/unit and/or counseling patient: Coding Level of Care Code 28429 SUB INP/OBS CARE 25MIN Diagnoses Vomiting R11.10 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
[2025-02-14] MEDS: diphenhydrAMINE 50 MG/ML VIAL IV STA (22:00)
[2025-02-15 06:26] LABS: Hematocrit (blood only) 25.6 % (37.0-47.0); Hemoglobin 8.0 g/dl (12.0-16.0); Mean Corpuscular Hemoglobin 29.4 pg (25.0-34.0); Mean Corpuscular Volume 94.1 fL (80.0-100.0); Platelet Count 90 K/uL (130-400); RDW Standard Deviation 67.4 fL (36.4-46.3); Red Blood Count 2.72 M/uL (4.20-5.40); White Blood Count 1.89 K/ul (4.8-10.8)
[2025-02-15 06:40] LABS: Anion Gap 3.0 (3-11); Blood Urea Nitrogen 3.0 mg/dl (6-23); Calcium 8.0 mg/dl (8.6-10.3); Carbon Dioxide 29.0 mmol/L (21-32); Chloride 108.0 mmol/L (98-107); Creatinine Clr Calc Pharmacy 167.9 ml/min; Glucose 86.0 mg/dl (70-99(Fasting)); Potassium 3.3 mmol/L (3.5-5.1); Sodium 140.0 mmol/L (136-145)
[2025-02-15] MEDS: PROCHLORPERAZINE 10 MG in SYRINGE 8 ML IV PRN (08:04)
[2025-02-15] MEDS: ALUMINUM/MAGNESIUM SUSP 30 ML UDC PO SCH (10:06)
--- NOTE | 2025-02-15 17:36 | Hospitalist Progress Note ---
Date of Service February 15, 2025 Assessment & Plan (1) Vomiting: (2) Metastatic disease: Plan 34yo female with history of metastatic breast cancer (lesions to spine, lung, liver, brain) presenting with multiple episodes of vomiting with hematemesis prior to arrival. Patient has had hematemesis on several occasions necessitating hospital admission. Patient had an EGD performed at [facility] [place] which revealed duodenal and esophageal ulcers. #Vomiting/Hematemesis - No vomiting since ED presentation she's on dextrose with 20meq kcl she's unable to tolerate oral liquid, maintain overnight. compazine for nausea and vomiting oncology team will discuss option of TPN via chemport versus feeding tube. on evening, downgrade from regular to clear liquid, reglan -Maintain PIV access - patient with port in place, with second IV site in place -Protonix gtt, Octreotide gtt, Pepcid 20mg IV BID PRN reglan, off compazine Recommend outpatient surgical f/u for potential J-tube placement to allow for adequate nutrition on days patient cannot tolerate PO hypokalemia, she's on dextrose with 20meq kcl #Metastatic breast cancer oncology requested that palliative care to be involved. -patient currently on chemotherapy with Gemcitabine and Carboplatin -Typically gets 3 week rotations of chemotherapy with the first week consisting of the combination therapy, second week with monotherapy and third week free of medications -Pain control with IV Tylenol, Morphine PRN #Anxiety -Alprazolam PRN - continue home dose -Continue Escitalopram #PPx - SCDs and JAMES stockings Code - FULL Admission and Anticipated Discharge Date Admission Date: February 12, 2025 Subjective she still has inability to tolerate liquid still need IV fluid the ongoing question is between TPN via chemoport versus feeding tube she does not want to forego medical management of her abdomen is soft to touch Physical Exam Physical Exam: VITALS: Reviewed. WEIGHT/BMI reviewed. GEN: Healthy appearing, well-developed, NAD. -Head: NC/AT; -Mouth and throat: MMM. Normal gums, muc salena, palate,. Good dentition. NECK: Supple, with no masses. CV: RRR, no m/r/g. + for chemport LUNGS: CTAB, no w/r/c. ABD: Soft, NT/ND, NBS, no masses or organomegaly. SKIN: Warm, well perfused. No skin rashes or abnormal lesions. MSK: No deformities, Normal gait. NEURO: Ambulating with no limitations. Normal muscle strength and tone. No focal deficits. Results & Data Results & Data Vital Signs (Past 12 Hours) Vital Signs Temp Pulse Pulse Pulse Resp BP Pulse Ox 02/15/25 16:00 36.6 C 80 16 124/77 97 02/15/25 14:01 78 02/15/25 11:16 02/15/25 11:08 36.7 C 64 22 109/64 95 02/15/25 07:40 36.8 C 72 17 109/74 96 02/15/25 05:46 66 O2 Del Method 02/15/25 16:00 Room Air 02/15/25 14:01 02/15/25 11:16 Room Air 02/15/25 11:08 Room Air 02/15/25 07:40 Room Air 02/15/25 05:46 Laboratory Results Laboratory Results - last 72 hr 02/12/25 02/13/25 02/13/25 18:40 06:04 15:11 WBC 3.58 L RBC 2.97 L Hgb 9.0 L Hct 27.9 L MCV 93.9 MCH 30.3 MCHC 32.3 RDW Std Deviation 69.4 H RDW Coeff of Ara 20.2 H Plt Count 117 L MPV 10.7 Immature Gran % (Auto) 0.3 Neut % (Auto) 91.6 Lymph % (Auto) 5.3 [place] % (Auto) 1.7 Eos % (Auto) 0.8 Baso % (Auto) 0.3 Neut # (Auto) 3.28 Lymph # (Auto) 0.19 L [place] # (Auto) 0.06 L Eos # (Auto) 0.03 Baso # (Auto) 0.01 Immature Gran # (Auto) 0.01 Anisocytosis Present Tear Drop Cells 1+ Sodium 139 137 Potassium 3.2 L 3.4 L Chloride 105 104 Carbon Dioxide 31 29 Anion Gap 3 4 BUN 9 8 Creatinine 0.44 L 0.42 L Est Cr Clr Drug Dosing 152.6 159.9 eGFR 128.48 129.93 BUN/Creatinine Ratio 20.5 H 19.0 Glucose 80 104 H Calcium 8.2 L 7.9 L Phosphorus 2.6 Magnesium 1.5 L 2.3 Total Bilirubin 1.0 D AST 135 H ALT 70 H Alkaline Phosphatase 72 Total Protein 5.1 L D Albumin 3.0 L Globulin 2.1 L Albumin/Globulin Ratio 1.4 Urine Color Dark Yellow Urine Appearance Cloudy A Urine pH 6.0 Ur Specific [place] > 1.045 H Urine Protein 1+ H Urine Glucose (UA) Negative Urine Ketones 1+ H Urine Blood Negative Urine Nitrite Negative Urine Bilirubin 1+ H Urine Urobilinogen Negative Ur Leukocyte Esterase Trace H Urine WBC (Auto) 0-5 Urine RBC (Auto) 0-2 U Hyaline Cast (Auto) 3-5 H U Epithel Cells (Auto) 0-2 Urine Bacteria (Auto) None Seen Urine Comment 02/14/25 02/15/25 14:30 05:51 WBC 1.89 L RBC 2.72 L Hgb 8.0 L Hct 25.6 L MCV 94.1 MCH 29.4 MCHC 31.3 L RDW Std Deviation 67.4 H RDW Coeff of Ara 19.7 H Plt Count 90 L MPV 10.0 Immature Gran % (Auto) Neut % (Auto) Lymph % (Auto) [place] % (Auto) Eos % (Auto) Baso % (Auto) Neut # (Auto) Lymph # (Auto) [place] # (Auto) Eos # (Auto) Baso # (Auto) Immature Gran # (Auto) Anisocytosis Tear Drop Cells Sodium 140 140 Potassium 3.6 3.3 L Chloride 108 H 108 H Carbon Dioxide 27 29 Anion Gap 5 3 BUN 4 L 3 L Creatinine 0.43 L 0.40 L Est Cr Clr Drug Dosing 156.2 167.9 eGFR 129.19 131.46 BUN/Creatinine Ratio 9.3 L 7.5 L Glucose 167 H 86 Calcium 7.6 L 8.0 L Phosphorus Magnesium Total Bilirubin AST ALT Alkaline Phosphatase Total Protein Albumin Globulin Albumin/Globulin Ratio Urine Color Urine Appearance Urine pH Ur Specific [place] Urine Protein Urine Glucose (UA) Urine Ketones Urine Blood Urine Nitrite Urine Bilirubin Urine Urobilinogen Ur Leukocyte Esterase Urine WBC (Auto) Urine RBC (Auto) U Hyaline Cast (Auto) U Epithel Cells (Auto) Urine Bacteria (Auto) Urine Comment PG Care Time/CCT Total # of Minutes Spent Total Time Spent with Patient: Total time spent is greater than 50% in coordination of care (as documented) at patient's floor/unit and/or counseling patient: Coding Level of Care Code 31014 SUB INP/OBS CARE 07/02MIN Diagnoses Vomiting R11.10 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
[2025-02-15] MEDS: POTASSIUM CHLORIDE / WTR 10 MEQ/100 ML PLCT IV SCH (17:56)
[2025-02-15] MEDS: diphenhydrAMINE 50 MG/ML VIAL IV STA (19:49)
[2025-02-16 06:07] LABS: Anion Gap 3.0 (3-11); Blood Urea Nitrogen 2.0 mg/dl (6-23); Calcium 8.2 mg/dl (8.6-10.3); Carbon Dioxide 30.0 mmol/L (21-32); Chloride 106.0 mmol/L (98-107); Creatinine Clr Calc Pharmacy 167.9 ml/min; Glucose 87.0 mg/dl (70-99(Fasting)); Magnesium 1.4 mg/dl (1.7-2.4); Potassium 3.7 mmol/L (3.5-5.1); Sodium 139.0 mmol/L (136-145)
[2025-02-16 06:10] LABS: Hematocrit (blood only) 24.1 % (37.0-47.0); Hemoglobin 7.9 g/dl (12.0-16.0); Mean Corpuscular Hemoglobin 30.3 pg (25.0-34.0); Mean Corpuscular Volume 92.3 fL (80.0-100.0); Platelet Count 75 K/uL (130-400); RDW Standard Deviation 63.3 fL (36.4-46.3); Red Blood Count 2.61 M/uL (4.20-5.40); White Blood Count 0.95 K/ul (4.8-10.8)
[2025-02-16] MEDS: MAGNESIUM SULFATE / D5W 1 GM/100 ML BAG IV SCH (07:50)
[2025-02-16] MEDS ORDERED: TPN/PPN CONSULT PHARMACY STA ×4 (09:00→12:10)
[2025-02-16] MEDS ORDERED: TPN/PPN CONSULT PHARMACY PRN (09:01)
[2025-02-16 10:00] LABS: Alanine Aminotransferase 42.0 U/L (7-52); Albumin Level 3.0 gm/dl (3.4-5.0); Alkaline Phosphatase 69.0 U/L (34-104); Bilirubin,Total 0.6 mg/dl (0.2-1.0); Cholesterol 113.0 mg/dl (0-200); HDL Cholesterol 35.0 mg/dl; Total Protein 5.2 gm/dl (6.0-8.3); Triglycerides 73.0 mg/dl (0-150)
[2025-02-16] MEDS ORDERED: DEXTROSE 10% 1,000 ML IV PRN (12:05)
--- NOTE | 2025-02-16 12:10 | Hospitalist Progress Note ---
Date of Service February 16, 2025 Assessment & Plan (1) Vomiting: (2) Metastatic disease: Plan 34yo female with history of metastatic breast cancer (lesions to spine, lung, liver, brain) presenting with multiple episodes of vomiting with hematemesis prior to arrival. Patient has had hematemesis on several occasions necessitating hospital admission. [place] [facility] [place] duodenal and esophageal [place]. she was unable to tolerate solid food. she was able to tolerate clear liquid if we premediated her with ativan. on 02/16, she is agreeable for TPN. oncology cleared #Vomiting/Hematemesis - No vomiting since ED presentation pre-mediated with ativan prior to meals. and able to tolerate oral liquid maintain overnight. compazine for nausea and vomiting oncology team cleared for TPN via chemport versus feeding tube. -Maintain PIV access - patient with port in place, with second IV site in place -Protonix gtt, Octreotide gtt, Pepcid 20mg IV BID PRN reglan, off compazine defer to Dr. Zepeda about potential J-tube placement oncoology was concerned about risk of infection neutropenia maintain on precaution, low bacteria diet malignant bowel obstruction starting her on TPN on 02/16/2025 monitor magnesium, phsophate level, and sodium oncology; Dr. Zepeda, cleared for DC hypokalemia, she's on dextrose with 20meq kcl #Metastatic breast cancer oncology requested that palliative care to be involved. -patient currently on chemotherapy with Gemcitabine and Carboplatin -Typically gets 3 week rotations of chemotherapy with the first week consisting of the combination therapy, second week with monotherapy and third week free of medications -Pain control with IV Tylenol, Morphine PRN #Anxiety -Alprazolam PRN - continue home dose -Continue Escitalopram #PPx - SCDs and JAMES stockings Code - FULL Admission and Anticipated Discharge Date Admission Date: February 12, 2025 Subjective she can tolerate clear liquid, able to keep the food down with ativan she's is agreeable for TPN, nutrition, pharmacy consulted spoke with Dr. Zepeda oncology; agreeable for TPN continue to monitor low WBC level Physical Exam Physical Exam: VITALS: Reviewed. WEIGHT/BMI reviewed. GEN: Healthy appearing, well-developed, NAD. -Head: NC/AT; -Mouth and throat: MMM. Normal gums, muc salena, palate,. Good dentition. NECK: Supple, with no masses. CV: RRR, no m/r/g.; + for chemport LUNGS: CTAB, no w/r/c. ABD: Soft, NT/ND, NBS, no masses or organomegaly. SKIN: Warm, well perfused. No skin rashes or abnormal lesions. MSK: No deformities, Normal gait. EXT: No clubbing, cyanosis, or edema. NEURO: AAOx3 Results & Data Results & Data Vital Signs (Past 12 Hours) Vital Signs Temp Pulse Pulse Resp BP Pulse Ox O2 Del Method 02/16/25 07:37 36.6 C 78 18 122/83 96 Room Air 02/16/25 07:30 Room Air 02/16/25 05:57 78 02/16/25 02:48 36.9 C 68 17 121/79 92 Room Air Laboratory Results Laboratory Results - last 72 hr 02/13/25 02/14/25 02/15/25 15:11 14:30 05:51 WBC 1.89 L RBC 2.72 L Hgb 8.0 L Hct 25.6 L MCV 94.1 MCH 29.4 MCHC 31.3 L RDW Std Deviation 67.4 H RDW Coeff of Ara 19.7 H Plt Count 90 L MPV 10.0 Sodium 137 140 140 Potassium 3.4 L 3.6 3.3 L Chloride 104 108 H 108 H Carbon Dioxide 29 27 29 Anion Gap 4 5 3 BUN 8 4 L 3 L Creatinine 0.42 L 0.43 L 0.40 L Est Cr Clr Drug Dosing 159.9 156.2 167.9 eGFR 129.93 129.19 131.46 BUN/Creatinine Ratio 19.0 9.3 L 7.5 L Glucose 104 H 167 H 86 Calcium 7.9 L 7.6 L 8.0 L Phosphorus Magnesium 2.3 Total Bilirubin Direct Bilirubin AST ALT Alkaline Phosphatase Total Protein Albumin Triglycerides Cholesterol LDL Cholesterol, Calc VLDL Cholesterol, Calc HDL Cholesterol Cholesterol/HDL Ratio 02/16/25 02/16/25 05:27 09:17 WBC 0.95 L* RBC 2.61 L Hgb 7.9 L Hct 24.1 L MCV 92.3 MCH 30.3 MCHC 32.8 RDW Std Deviation 63.3 H RDW Coeff of Ara 18.8 H Plt Count 75 L MPV 10.2 Sodium 139 Potassium 3.7 Chloride 106 Carbon Dioxide 30 Anion Gap 3 BUN 2 L Creatinine 0.40 L Est Cr Clr Drug Dosing 167.9 eGFR 131.46 BUN/Creatinine Ratio 5.0 L Glucose 87 Calcium 8.2 L Phosphorus 3.1 Magnesium 1.4 L Total Bilirubin 0.6 Direct Bilirubin 0.1 AST 65 H ALT 42 Alkaline Phosphatase 69 Total Protein 5.2 L Albumin 3.0 L Triglycerides 73 Cholesterol 113 LDL Cholesterol, Calc 63 VLDL Cholesterol, Calc 15 HDL Cholesterol 35 Cholesterol/HDL Ratio 3.2 PG Care Time/CCT Total # of Minutes Spent Total Time Spent with Patient: Total time spent is greater than 50% in coordination of care (as documented) at patient's floor/unit and/or counseling patient: Coding Level of Care Code 07044 SUB INP/OBS CARE 07/02MIN Diagnoses Vomiting R11.10 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
--- NOTE | 2025-02-16 12:27 | Pharmacy Report ---
Pharmacy Initial PN Consult Nt - Date of Service February 16, 2025 - Scope Pharmacy has been consulted on this date to manage parenteral nutrition orders and order appropriate labs. As part of the Nutrition Support Team Guidelines, pharmacy will work in conjunction with dietary when determining the patients caloric needs. - Subjective * The patient is a 34 year old Female admitted on 02/12/25 for NAUSEA, HEMATEMESIS. * Patient is to receive parenteral nutrition for prolonged limited PO intake, ongoing N/V in the setting of metastatic cancer, GI bleeding * Pertinent PMHx: Metastatic breast cancer with duodenal/esophageal ulcers, recent GI bleeding, ongoing N/V. Discussion of j-tube placement vs TPN. Port in place. - Objective Vascular Access: * Patient currently has a central line (port). Height & Weight (Last Documented) Height 5 ft 4 in Weight 55.9 kg Diet Order(s) 02/14/25 Breakfast Diet Intake & Ouput (24hrs) 02/15/25 02/16/25 02/17/25 06:59 06:59 06:59 Intake Total 2928.833 / 2928.833 3549.167 / 3549.167 1291.667 / 1291.667 Output Total 900 / 900 Balance 2028.833 / 2028.833 3549.167 / 3549.167 1291.667 / 1291.667 Selected Laboratory Results 02/16/25 02/16/25 05:27 09:17 Sodium 139 Potassium 3.7 Chloride 106 Carbon Dioxide 30 Anion Gap 3 BUN 2 L Creatinine 0.40 L BUN/Creatinine Ratio 5.0 L Glucose 87 Calcium 8.2 L Phosphorus 3.1 Magnesium 1.4 L Total Bilirubin 0.6 AST 65 H ALT 42 Alkaline Phosphatase [address] - Follow Up Nutrition Assessment Start: 02/12/25 12:21 Freq: Status: Active Protocol: Document 02/16/25 09:43 WN (Rec: 02/16/25 09:55 WN [email or web address]) RD - Initial Nutrition Assessment Start: 02/12/25 12:11 Freq: Status: Active Protocol: Document 02/12/25 12:11 WN (Rec: 02/12/25 12:21 WN [email or web address]) - Assessment & Plan Assessment: * Appreciate dietitians recommendations for macronutrients. * Fluids: D5NS + 20 kcl @ 90 ml/hr has been providing 108 gm of dextrose + an additional 24 gm CHO from protonix drip ~134 gm CHO/day, ~43 mEq of KCl. Fluids have discontinued at this time. Recommended switch to pantoprazole 40 mg IV BID push. * E: Mag 1.4 this morning- replaced with 2 gm. Others WNL. Plan: * For Day #1 of TPN administration, the following will be ordered: * Macronutrients: * Amino Acids: 80 grams/day * Dextrose: 140 grams/day * Lipids: 50 grams/day * Micronutrients: * Sodium chloride: 65 mEq/day * Sodium acetate: 50 mEq/day * Potassium phosphate: 15 mMol/day * Potassium chloride: 30 mEq/day * Magnesium sulfate: 16.24 mEq/day (2 gm) * Calcium gluconate: 4.65 mEq/day * Multivitamins: 10 mL/day * Trace elements: 1 mL/day * Thiamine: 100 mg/day * Total volume of 1097 mL will be infused over 24 hours (45.7 ml/hr) and will provide ~1300 kcal/day * Labs will be ordered per PN protocol. * Pharmacy will follow and adjust PN orders on a daily basis. Thank you!
[2025-02-16] MEDS: STOP CLINOLIPID SCH (12:48)
[2025-02-16] MEDS: [UNRECOGNIZED DRUG - OTHER] IV SCH (16:04)
[2025-02-16] MEDS: CENTRAL TPN IV SCH (16:04)
[2025-02-16] MEDS: CLINOLIPID 20% IV FAT EMULSION 250 ML IV SCH (16:05)
[2025-02-16 16:25] LABS: Anion Gap 4.0 (3-11); Blood Urea Nitrogen 2.0 mg/dl (6-23); Calcium 8.2 mg/dl (8.6-10.3); Carbon Dioxide 29.0 mmol/L (21-32); Chloride 105.0 mmol/L (98-107); Creatinine Clr Calc Pharmacy 167.9 ml/min; Glucose 93.0 mg/dl (70-99(Fasting)); Potassium 3.8 mmol/L (3.5-5.1); Sodium 138.0 mmol/L (136-145)
[2025-02-16] MEDS ORDERED: ACETAMINOPHEN 10MG/ML Custom 1,000 MG in EMPTY BAG 0 ML IV PRN (16:55)
[2025-02-16 17:07] LABS: Hematocrit (blood only) 24.9 % (37.0-47.0); Hemoglobin 8.0 g/dl (12.0-16.0); Immature Granulocytes # (auto) 0.01 K/uL (0.01-0.20); Immature Granulocytes % (auto) 0.9 %; Mean Corpuscular Hemoglobin 29.6 pg (25.0-34.0); Mean Corpuscular Volume 92.2 fL (80.0-100.0); Platelet Count 75 K/uL (130-400); RDW Standard Deviation 62.7 fL (36.4-46.3); Red Blood Count 2.70 M/uL (4.20-5.40); White Blood Count 1.12 K/ul (4.8-10.8)
[2025-02-16] MEDS: ACETAMINOPHEN 1,000 MG/100 ML VIAL IV PRN (17:46)
[2025-02-16] MEDS: diphenhydrAMINE 50 MG/ML VIAL IV STA (21:52)
[2025-02-17 06:41] LABS: Hematocrit (blood only) 24.0 % (37.0-47.0); Hemoglobin 8.0 g/dl (12.0-16.0); Mean Corpuscular Hemoglobin 30.4 pg (25.0-34.0); Mean Corpuscular Volume 91.3 fL (80.0-100.0); Platelet Count 65 K/uL (130-400); RDW Standard Deviation 62.0 fL (36.4-46.3); Red Blood Count 2.63 M/uL (4.20-5.40); White Blood Count 1.21 K/ul (4.8-10.8)
[2025-02-17 07:11] LABS: Alanine Aminotransferase 34.0 U/L (7-52); Albumin Globulin Ratio 1.4 (0.9-2); Albumin Level 3.0 gm/dl (3.4-5.0); Alkaline Phosphatase 77.0 U/L (34-104); Anion Gap 4.0 (3-11); Bilirubin,Total 0.4 mg/dl (0.2-1.0); Blood Urea Nitrogen 6.0 mg/dl (6-23); Calcium 8.4 mg/dl (8.6-10.3); Carbon Dioxide 31.0 mmol/L (21-32); Chloride 105.0 mmol/L (98-107); Creatinine Clr Calc Pharmacy 191.9 ml/min; Globulin 2.2 gm/dl (2.5-4.0); Glucose 82.0 mg/dl (70-99(Fasting)); Magnesium 1.6 mg/dl (1.7-2.4); Potassium 3.8 mmol/L (3.5-5.1); Sodium 140.0 mmol/L (136-145); Total Protein 5.2 gm/dl (6.0-8.3)
[2025-02-17] MEDS: MAGNESIUM SULFATE / D5W 1 GM/100 ML BAG IV SCH (07:48)
--- NOTE | 2025-02-17 08:46 | Hospitalist Progress Note ---
Date of Service February 17, 2025 Assessment & Plan (1) Vomiting: (2) Metastatic disease: Plan 34yo female with history of metastatic breast cancer (lesions to spine, lung, liver, brain) presenting with multiple episodes of vomiting with hematemesis prior to arrival. Patient has had hematemesis on several occasions necessitating hospital admission. Patient had an EGD performed at [facility] [place] which revealed duodenal and esophageal ulcers. she was unable to tolerate solid food. she was able to tolerate clear liquid if we premediated her with ativan. on 02/16, she is agreeable for TPN. oncology cleared #Vomiting/Hematemesis - on 02/16, started on TPN, tolerate clear diet; on 02/17, patient requested for cottage cheese for comfort pre-mediated with ativan prior to meals. and able to tolerate oral liquid compazine for nausea and vomiting oncology team cleared for TPN via chemport -Maintain PIV access - patient with port in place, with second IV site in place -Protonix gtt, Octreotide gtt, Pepcid 20mg IV BID PRN reglan, off compazine defer to Dr. Zepeda about potential J-tube placement oncoology was concerned about risk of infection TPN via chemport started on 02/16 monitor for magnesium, phosphate, lipid panel and potassium neutropenia maintain on precaution, low bacteria diet malignant bowel obstruction starting her on TPN on 02/16/2025 monitor magnesium, phsophate level, and sodium oncology; Dr. Zepeda, cleared for DC hypokalemia, she's on dextrose with 20meq kcl #Metastatic breast cancer oncology requested that palliative care to be involved. -patient currently on chemotherapy with Gemcitabine and Carboplatin -Typically gets 3 week rotations of chemotherapy with the first week consisting of the combination therapy, second week with monotherapy and third week free of medications -Pain control with IV Tylenol, Morphine PRN #Anxiety -Alprazolam PRN - continue home dose -Continue Escitalopram #PPx - SCDs and JAMES stockings Code - FULL Admission and Anticipated Discharge Date Admission Date: February 12, 2025 Subjective she's been on TPN since yesterday she's tolerate the liquid diet and requested for cottage cheese for comfort she should be pre-medicated with ativan prior to oral intake continue to monitor for potassium, phosphate, triglycerin and magnesium level while on TPN she has hypomagnesemia and s/p repletion Physical Exam Physical Exam: VITALS: Reviewed. WEIGHT/BMI reviewed. GEN: Healthy appearing, well-developed, NAD. PSYCH: Good Judgment. AOx3. Normal memory, mood, and affect. HEENT -Head: NC/AT; NECK: Supple, with no masses. CV: RRR, no m/r/g. + for chemport LUNGS: CTAB, no w/r/c. ABD: Soft, NT/ND, NBS, no masses or organomegaly. : no CVA tenderness SKIN: + for tattoo in the back MSK: No deformities, Normal gait. EXT: No clubbing, cyanosis, or edema. NEURO: Ambulating with no limitations. Normal muscle strength and tone. No focal deficits. 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
--- NOTE | 2025-02-17 13:12 | Pharmacy Report ---
Pharmacy PN Follow-up Note - Date of Service February 17, 2025 - Subjective Patient is currently on day #[] of [PPN][TPN] for [Indication]. - Objective Height & Weight (Last Documented) Height 5 ft 4 in Weight 55.9 kg Diet Order(s) 02/17/25 Breakfast Diet Intake & Ouput (24hrs) 02/16/25 02/17/25 02/18/25 06:59 06:59 06:59 Intake Total 3549.167 / 3549.167 2260.667 / 2260.667 283.333 / 283.333 Balance 3549.167 / 3549.167 2260.667 / 2260.667 283.333 / 283.333 Selected Laboratory Results 02/16/25 02/17/25 15:39 06:16 Sodium 138 140 Potassium 3.8 3.8 Chloride 105 105 Carbon Dioxide 29 31 Anion Gap 4 4 BUN 2 L 6 Creatinine 0.40 L 0.35 L BUN/Creatinine Ratio 5.0 L 17.1 Glucose 93 82 Calcium 8.2 L 8.4 L Phosphorus 3.8 Magnesium 1.6 L Total Bilirubin 0.4 AST 52 H ALT 34 Alkaline Phosphatase 77 - Assessment & Plan Assessment: F: Tolerating TPN @ 45 ml/hr E: Mg 1.6 today- repleted with 3 gm outside of TPN, others WNL N: BSGs stable, diet advanced to Regular- will monitor Plan: * For Day 2 of TPN administration, the following will be ordered: * Macronutrients: * Amino Acids: 80 grams/day * Dextrose: 140 grams/day * Lipids: 50 grams/day * Micronutrients: * Sodium chloride: 100 mEq/day * Potassium phosphate: 15 mMol/day * Potassium acetate: 30 mEq/day * Magnesium sulfate: 16.24 mEq/day * Calcium gluconate: 4.65 mEq/day * Multivitamins: 10 mL/day * Trace elements: 1 mL/day * Thiamine: 100 mg/day * Total volume of 1086 mL will be infused over 24 hours and will provide 1296 kcal/day * Labs will be ordered per PN protocol. * Pharmacy will follow and adjust PN orders on a daily basis. Thank you!
[2025-02-17] MEDS: CENTRAL TPN IV SCH (14:58)
[2025-02-17] MEDS: [UNRECOGNIZED DRUG - OTHER] IV SCH (14:58)
[2025-02-17] MEDS: CLINOLIPID 20% IV FAT EMULSION 250 ML IV SCH (15:18)
--- NOTE | 2025-02-17 16:57 | Procedure Note ---
Procedure Note Date of Service February 17, 2025 Patient seen resting comfortably in hospital bed. Reports recent nausea and vomiting following meal without current symptoms. Podiatry is consulted to evaluate bilateral ingrown hallux nail borders. Patient reports symptoms for the past few weeks with mild to moderate irritation of the medial nail border of the bilateral hallux. Her did attempt to trim away the ingrown portion of the nail however she has persistent pain and mild drainage. Bilateral hallux is dressed with antibiotic ointment and a Band-Aid. Right hallux: There is mild erythema and edema to the medial hallux nail border with granuloma tissue formation along the medial nail fold. Nail plate is loose from the nailbed along its medial border. No lymphangitis or streaking. No active drainage. Left hallux: Mild erythema to the medial nail border with small granuloma tissue formation to the medial nail fold. Nail plate is loose from the nailbed along the medial border. No signs of local soft tissue infection. Procedure: Partial Nail Avulsion medial border bilateral hallux nail Pre-op diagnosis: Painful ingrown toenail bilateral medial hallux nail border Post-op diagnosis: Same Procedure: Partial Nail Avulsion medial hallux nail border bilateral Surgeon: Michele Breen DPM Anesthesia: Topical 4% lidocaine cream Bleeding: Minimal Disposition: Tolerated well Procedure: Informed consent obtained from patient verbally, Time Out taken. Patient states understanding and agrees to procedure. Appropriate site was identified and confirmed with patient. The bilateral hallux was prepped with Betadine. Topical 4% lidocaine cream applied to the bilateral hallux and left in place for 5 minutes prior to initiating removal of medial hallux nail border. 4-1/2 inch stainless steel nail nippers utilized to trim the medial border of the hallux nail bilateral extending to the level of the matrix without insult to the nail matrix. 3stainless steel sterile tissue nippers utilized to remove any hypertrophic granulation tissue from the nail borders. The freed nail was elevated and removed from the field. Area was then examined and noted to be free of debris or loose tissue. Nailbed was flushed with alcohol dried and dressed with Optifoam and a dry sterile dressing. Patient instructed to leave surgical dressing in place for 24 hours then okay to begin once daily d ressing changes with antibiotic ointment and a Band-Aid. Order placed for once daily dressing change with antibiotic ointment and a dry sterile dressing while in house. Patient okay to follow-up as an outpatient in the podiatry office as needed following discharge. Coding Additional Codes Date of Service ([facility].SURGERY)
[2025-02-17] MEDS: SIMETHICONE 80 MG CHEW PO SCH (17:37)
[2025-02-17] MEDS: diphenhydrAMINE 50 MG/ML VIAL IV STA (21:22)
[2025-02-18] MEDS: STOP CLINOLIPID SCH (03:34)
[2025-02-18 06:37] LABS: Hematocrit (blood only) 24.5 % (37.0-47.0); Hemoglobin 8.2 g/dl (12.0-16.0); Mean Corpuscular Hemoglobin 30.6 pg (25.0-34.0); Mean Corpuscular Volume 91.4 fL (80.0-100.0); Platelet Count 57 K/uL (130-400); RDW Standard Deviation 61.1 fL (36.4-46.3); Red Blood Count 2.68 M/uL (4.20-5.40); White Blood Count 1.67 K/ul (4.8-10.8)
[2025-02-18 07:11] LABS: Alanine Aminotransferase 31.0 U/L (7-52); Albumin Globulin Ratio 1.3 (0.9-2); Albumin Level 3.1 gm/dl (3.4-5.0); Alkaline Phosphatase 82.0 U/L (34-104); Anion Gap 4.0 (3-11); Bilirubin,Total 0.4 mg/dl (0.2-1.0); Blood Urea Nitrogen 9.0 mg/dl (6-23); Calcium 8.6 mg/dl (8.6-10.3); Carbon Dioxide 32.0 mmol/L (21-32); Chloride 103.0 mmol/L (98-107); Cholesterol 107.0 mg/dl (0-200); Creatinine Clr Calc Pharmacy 191.9 ml/min; Globulin 2.3 gm/dl (2.5-4.0); Glucose 82.0 mg/dl (70-99(Fasting)); HDL Cholesterol 33.0 mg/dl; Magnesium 1.7 mg/dl (1.7-2.4); Potassium 3.8 mmol/L (3.5-5.1); Sodium 139.0 mmol/L (136-145); Total Protein 5.4 gm/dl (6.0-8.3); Triglycerides 81.0 mg/dl (0-150)
--- NOTE | 2025-02-18 11:23 | Hospitalist Progress Note ---
Date of Service February 18, 2025 Assessment & Plan (1) Vomiting: (2) Metastatic disease: Plan 34yo female with history of metastatic breast cancer (lesions to spine, lung, liver, brain) presenting with multiple episodes of vomiting with hematemesis prior to arrival. Patient has had hematemesis on several occasions necessitating hospital admission. Patient [place] [facility] [place] and esophageal ulcers. she was unable to tolerate solid food. she was able to tolerate clear liquid if we premediated her with ativan. on 02/16, she is agreeable for TPN. oncology cleared #Vomiting/Hematemesis - on 02/16, started on TPN, tolerate clear diet; on 02/17, patient requested for cottage cheese for comfort pre-mediated with ativan prior to meals. and able to tolerate oral liquid compazine for nausea and vomiting oncology team cleared for TPN via chemport -Maintain PIV access - patient with port in place, with second IV site in place Pepcid 20mg IV BID PRN reglan, off compazine Dr. Zepeda deferred J-tube placement oncoology was concerned about risk of infection headache episode patient deferring brain MRI while at [facility] severe claustrophobia TPN via chemport started on 02/16 monitor for magnesium, phosphate, lipid panel and potassium neutropenia -maintain on precaution, low bacteria diet malignant bowel obstruction starting her on TPN on 02/16/2025 monitor magnesium, phsophate level, and sodium oncology; Dr. Zepeda, cleared for DC hypokalemia, she's on dextrose with 20meq kcl #Metastatic breast cancer oncology requested that palliative care to be involved. -patient currently on chemotherapy with Gemcitabine and Carboplatin -Typically gets 3 week rotations of chemotherapy with the first week consisting of the combination therapy, second week with monotherapy and third week free of medications -Pain control with IV Tylenol, Morphine PRN ingrown toenail; s/p bedside procedure by podiatry on 02/17 #Anxiety -Alprazolam PRN - continue home dose -Continue Escitalopram #PPx - SCDs and JAMES stockings Code - FULL Admission and Anticipated Discharge Date Admission Date: February 12, 2025 Subjective started TPN on ; continue to monitor magnesium, phosphate, K and triglycerin level she's eating solid food, once isolated episode of vomiting, but much better case management finding a PCP that will monitor patient on TPN no other distress non-toxic appearing podiatry visit her yesterday; addressed the ingroin toenail Physical Exam Physical Exam: VITALS: Reviewed. WEIGHT/BMI reviewed. GEN: Healthy appearing, well-developed, NAD. -Head: NC/AT; -Mouth and throat: MMM. Normal gums, muc salena, palate,. Good dentition. NECK: Supple, with no masses. CV: RRR, no m/r/g. + for chemport LUNGS: CTAB, no w/r/c. ABD: Soft, NT/ND, NBS, no masses or organomegaly. : N/A MSK: No deformities, Normal gait. EXT: No clubbing, cyanosis, or edema. 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
[2025-02-18] MEDS: CENTRAL TPN IV SCH (15:18)
[2025-02-18] MEDS: CLINOLIPID 20% IV FAT EMULSION 250 ML IV SCH (15:18)
[2025-02-18] MEDS: [UNRECOGNIZED DRUG - OTHER] IV SCH (15:18)
[2025-02-18] MEDS: diphenhydrAMINE 50 MG/ML VIAL IV STA (21:03)
[2025-02-19 07:58] LABS: Alanine Aminotransferase 44.0 U/L (7-52); Albumin Globulin Ratio 1.3 (0.9-2); Albumin Level 3.1 gm/dl (3.4-5.0); Alkaline Phosphatase 99.0 U/L (34-104); Anion Gap 4.0 (3-11); Bilirubin,Total 0.5 mg/dl (0.2-1.0); Blood Urea Nitrogen 12.0 mg/dl (6-23); Calcium 8.7 mg/dl (8.6-10.3); Carbon Dioxide 32.0 mmol/L (21-32); Chloride 104.0 mmol/L (98-107); Creatinine Clr Calc Pharmacy 176.1 ml/min; Globulin 2.4 gm/dl (2.5-4.0); Glucose 83.0 mg/dl (70-99(Fasting)); Magnesium 1.5 mg/dl (1.7-2.4); Potassium 3.9 mmol/L (3.5-5.1); Sodium 140.0 mmol/L (136-145); Total Protein 5.5 gm/dl (6.0-8.3)
[2025-02-19] MEDS ORDERED: MAG SULFATE 50% 1GM/2ML VIAL IV ONE (08:13)
--- NOTE | 2025-02-19 09:39 | Hospitalist Progress Note ---
Date of Service February 19, 2025 Assessment & Plan (1) Vomiting: (2) Metastatic disease: Plan 34yo female with history of metastatic breast cancer (lesions to spine, lung, liver, brain) presenting with multiple episodes of vomiting with hematemesis prior to arrival. Patient has had hematemesis on several occasions necessitating hospital admission. Patient had an EGD performed at [facility] [place] which revealed duodenal and esophageal ulcers. she was unable to tolerate solid food. she was able to tolerate clear liquid if we premediated her with ativan. on 02/16, she is agreeable for TPN. oncology cleared #Vomiting/Hematemesis - on 02/16, started on TPN, tolerate clear diet; on 02/17, patient requested for cottage cheese for comfort pre-mediated with ativan prior to meals. and able to tolerate oral liquid compazine for nausea and vomiting oncology team cleared for TPN via chemport -Maintain PIV access - patient with port in place, with second IV site in place Pepcid 20mg IV BID PRN reglan, off compazine Dr. Zepeda deferred J-tube placement oncoology was concerned about risk of infection headache episode patient deferring brain MRI while at [facility] [address] severe claustrophobia TPN via chemport started on 02/16 monitor for magnesium, phosphate, lipid panel and potassium neutropenia -maintain on precaution, low bacteria diet malignant bowel obstruction starting her on TPN on 02/16/2025 monitor magnesium, phsophate level, and sodium oncology; Dr. Zepeda, cleared for DC hypokalemia, she's on dextrose with 20meq kcl cancer related pain she still need IV morphine 2-4 mg for her bone metastasis #Metastatic breast cancer oncology requested that palliative care to be involved. she set to begin radiation therapy treatment on 02/20/2025 -chemotherapy with Gemcitabine and Carboplatin -Typically gets 3 week rotations of chemotherapy with the first week consisting of the combination therapy, second week with monotherapy and third week free of medications -Pain control with IV Tylenol, Morphine PRN ingrown toenail; s/p bedside procedure by podiatry on 02/17 #Anxiety -Alprazolam PRN - continue home dose -Continue Escitalopram #PPx - SCDs and JAMES stockings Code - FULL Admission and Anticipated Discharge Date Admission Date: February 12, 2025 Subjective she's still has vomiting episode with 60% of her meals she due for radiation therapy tomorrow afternoon at 5pm still need pain management for her spine metastasis. no fever; no chill; no chest pain no shortness of breath Physical Exam Physical Exam: VITALS: Reviewed. WEIGHT/BMI reviewed. GEN: Healthy appearing, well-developed, NAD. -Head: NC/AT; NECK: Supple, with no masses. CV: RRR, no m/r/g. + for chemport ; receiving TPN LUNGS: CTAB, no w/r/c. ABD: Soft, NT/ND, NBS, no masses or organomegaly. SKIN: Warm, well perfused. No skin rashes or abnormal lesions. MSK: toenail covered. EXT: No clubbing, cyanosis, or edema. NEURO AAox3 . Results & Data Results & Data Vital Signs (Past 12 Hours) Vital Signs Temp Pulse Pulse Resp BP Pulse Ox O2 Del Method 02/19/25 08:20 37.2 C 65 18 97 Room Air 02/19/25 02:54 36.6 C 77 18 123/86 95 Room Air 02/18/25 23:12 80 02/18/25 22:39 36.8 C 79 18 107/74 95 Room Air Laboratory Results Laboratory Results - last 72 hr 02/16/25 02/16/25 02/17/25 09:17 15:39 00:01 WBC 1.12 L RBC 2.70 L Hgb 8.0 L Hct 24.9 L MCV 92.2 MCH 29.6 MCHC 32.1 RDW Std Deviation 62.7 H RDW Coeff of Ara 19.0 H Plt Count 75 L MPV 9.2 L Immature Gran % (Auto) 0.9 Neut % (Auto) 78.5 Lymph % (Auto) 14.3 Glenn % (Auto) 4.5 Eos % (Auto) 0.9 Baso % (Auto) 0.9 Neut # (Auto) 0.88 L* Lymph # (Auto) 0.16 L Glenn # (Auto) 0.05 L Eos # (Auto) 0.01 Baso # (Auto) 0.01 Immature Gran # (Auto) 0.01 Sodium 138 Potassium 3.8 Chloride 105 Carbon Dioxide 29 Anion Gap 4 BUN 2 L Creatinine 0.40 L Est Cr Clr Drug Dosing 167.9 eGFR 131.46 BUN/Creatinine Ratio 5.0 L Glucose 93 POC Glucose 88 Calcium 8.2 L Phosphorus 3.1 Magnesium Total Bilirubin 0.6 Direct Bilirubin 0.1 AST 65 H ALT 42 Alkaline Phosphatase 69 Total Protein 5.2 L Albumin 3.0 L Globulin Albumin/Globulin Ratio Triglycerides 73 Cholesterol 113 LDL Cholesterol, Calc 63 VLDL Cholesterol, Calc 15 HDL Cholesterol 35 Cholesterol/HDL Ratio 3.2 02/17/25 02/17/25 02/17/25 06:16 06:27 12:43 WBC 1.21 L RBC 2.63 L Hgb 8.0 L Hct 24.0 L MCV 91.3 MCH 30.4 MCHC 33.3 RDW Std Deviation 62.0 H RDW Coeff of Ara 18.6 H Plt Count 65 L MPV 10.1 Immature Gran % (Auto) Neut % (Auto) Lymph % (Auto) Glenn % (Auto) Eos % (Auto) Baso % (Auto) Neut # (Auto) Lymph # (Auto) Glenn # (Auto) Eos # (Auto) Baso # (Auto) Immature Gran # (Auto) Sodium 140 Potassium 3.8 Chloride 105 Carbon Dioxide 31 Anion Gap 4 BUN 6 Creatinine 0.35 L Est Cr Clr Drug Dosing 191.9 eGFR 135.76 BUN/Creatinine Ratio 17.1 Glucose 82 POC Glucose 91 116 H Calcium 8.4 L Phosphorus 3.8 Magnesium 1.6 L Total Bilirubin 0.4 Direct Bilirubin AST 52 H ALT 34 Alkaline Phosphatase 77 Total Protein 5.2 L Albumin 3.0 L Globulin 2.2 L Albumin/Globulin Ratio 1.4 Triglycerides Cholesterol LDL Cholesterol, Calc VLDL Cholesterol, Calc HDL Cholesterol Cholesterol/HDL Ratio 02/17/25 02/18/25 02/18/25 18:18 00:19 06:13 WBC 1.67 L RBC 2.68 L Hgb 8.2 L Hct 24.5 L MCV 91.4 MCH 30.6 MCHC 33.5 RDW Std Deviation 61.1 H RDW Coeff of Ara 18.3 H Plt Count 57 L MPV 10.0 Immature Gran % (Auto) Neut % (Auto) Lymph % (Auto) Glenn % (Auto) Eos % (Auto) Baso % (Auto) Neut # (Auto) Lymph # (Auto) Glenn # (Auto) Eos # (Auto) Baso # (Auto) Immature Gran # (Auto) Sodium 139 Potassium 3.8 Chloride 103 Carbon Dioxide 32 Anion Gap 4 BUN 9 Creatinine 0.35 L Est Cr Clr Drug Dosing 191.9 eGFR 135.76 BUN/Creatinine Ratio 25.7 H Glucose 82 POC Glucose 112 H 89 Calcium 8.6 Phosphorus 4.2 Magnesium 1.7 Total Bilirubin 0.4 Direct Bilirubin AST 57 H ALT 31 Alkaline Phosphatase 82 Total Protein 5.4 L Albumin 3.1 L Globulin 2.3 L Albumin/Globulin Ratio 1.3 Triglycerides 81 Cholesterol 107 LDL Cholesterol, Calc 58 VLDL Cholesterol, Calc 16 HDL Cholesterol 33 Cholesterol/HDL Ratio 3.2 02/18/25 02/18/25 02/19/25 11:59 17:37 00:49 WBC RBC Hgb Hct MCV MCH MCHC RDW Std Deviation RDW Coeff of Ara Plt Count MPV Immature Gran % (Auto) Neut % (Auto) Lymph % (Auto) Glenn % (Auto) Eos % (Auto) Baso % (Auto) Neut # (Auto) Lymph # (Auto) Glenn # (Auto) Eos # (Auto) Baso # (Auto) Immature Gran # (Auto) Sodium Potassium Chloride Carbon Dioxide Anion Gap BUN Creatinine Est Cr Clr Drug Dosing eGFR BUN/Creatinine Ratio Glucose POC Glucose 101 H 100 H 101 H Calcium Phosphorus Magnesium Total Bilirubin Direct Bilirubin AST ALT Alkaline Phosphatase Total Protein Albumin Globulin Albumin/Globulin Ratio Triglycerides Cholesterol LDL Cholesterol, Calc VLDL Cholesterol, Calc HDL Cholesterol Cholesterol/HDL Ratio 02/19/25 02/19/25 06:51 07:00 WBC RBC Hgb Hct MCV MCH MCHC RDW Std Deviation RDW Coeff of Ara Plt Count MPV Immature Gran % (Auto) Neut % (Auto) Lymph % (Auto) Glenn % (Auto) Eos % (Auto) Baso % (Auto) Neut # (Auto) Lymph # (Auto) Glenn # (Auto) Eos # (Auto) Baso # (Auto) Immature Gran # (Auto) Sodium 140 Potassium 3.9 Chloride 104 Carbon Dioxide 32 Anion Gap 4 BUN 12 Creatinine 0.38 L Est Cr Clr Drug Dosing 176.1 eGFR 133.10 BUN/Creatinine Ratio 31.6 H Glucose 83 POC Glucose 89 Calcium 8.7 Phosphorus 4.6 Magnesium 1.5 L Total Bilirubin 0.5 Direct Bilirubin AST 91 H ALT 44 Alkaline Phosphatase 99 Total Protein 5.5 L Albumin 3.1 L Globulin 2.4 L Albumin/Globulin Ratio 1.3 Triglycerides Cholesterol LDL Cholesterol, Calc VLDL Cholesterol, Calc HDL Cholesterol Cholesterol/HDL Ratio Medications Administered Current Inpatient Medications Al Hydrox/Mg Hydrox/Simethicone (Aluminum/Magnesium Susp 30 Ml Udc) 15 ml PO Q6H MIN Stop: 03/17/25 08:14 Last Admin: 02/19/25 08:19 Dose: 15 ml Alprazolam (Alprazolam 0.5 Mg Tablet) 0.5 mg PO Q8H PRN PRN Reason: Anxiety Stop: 03/14/25 02:50 Diphenoxylate HCl/Atropine (Diphenoxylate/Atropine 2.5/0.025mg Tab) 1 tab PO Q6H PRN PRN Reason: Diarrhea Stop: 03/14/25 02:50 Escitalopram Oxalate (Escitalopram Oxalate 10 Mg Tab) 10 mg PO HS MIN Stop: 03/14/25 20:59 Last Admin: 02/18/25 19:57 Dose: 10 mg Heparin Sodium (Porcine) (Heparin 100 Unit/Ml 5ml Flush) 5 ml FLUSH PRN PRN PRN Reason: Flush Stop: 03/14/25 06:49 Hyoscyamine (Hyoscyamine Sulfate 0.125 Mg Tab) 0.125 mg SL Q4H PRN PRN Reason: Cramping Stop: 03/16/25 09:22 Last Admin: 02/14/25 10:07 Dose: 0.125 mg Pantoprazole Sodium 40 mg/ (Dextrose) 100 mls @ 20 mls/hr IV Q5H MIN Stop: 03/13/25 22:44 Last Admin: 02/19/25 06:37 Dose: 8 mg/hr, 20 mls/hr Famotidine (Pepcid 20mg Iv Push) 20 mg in 5 mls @ 2.5 mls/min IV Q12H MIN Stop: 03/14/25 02:50 Last Admin: 02/19/25 03:25 Dose: Not Given Prochlorperazine 10 mg/ (Syringe) 10 mls @ 5 mls/min IV Q6H PRN PRN Reason: Nausea And Vomiting Stop: 03/17/25 07:37 Last Admin: 02/15/25 08:04 Dose: 5 mls/min Dextrose (D10w) 1,000 mls @ 0 mls/hr IV .Q0M PRN PRN Reason: protocol (see label comments) Stop: 02/19/25 12:04 Acetaminophen (Ofirmev) 1,000 mg in 100 mls @ 400 mls/hr IV Q8H PRN; Protocol PRN Reason: Pain or Fever Stop: 02/19/25 16:59 Last Infusion: 02/16/25 18:01 Dose: Infused Amino Acids/Dextrose 1,085 ml/ (Nutrition (Parenteral)) 1,085 mls @ 45.2 mls/hr IV .Q24H MIN; Protocol Stop: 02/19/25 15:59 Last Admin: 02/18/25 15:18 Dose: 45.2 mls/hr Magnesium Sulfate/Dextrose (Magnesium Sulfate / D5w) 1 gm in 100 mls @ 50 mls/hr IV Q2H MIN Stop: 02/19/25 12:29 Lorazepam (Lorazepam 2 Mg/1 Ml Vial) 0.5 mg IV Q8H PRN PRN Reason: Anxiety/Agitation Stop: 03/15/25 12:00 Last Admin: 02/18/25 17:16 Dose: 0.5 mg Miscellaneous (Stop Clinolipid) 1 each N/A TODAY@04 MIN Stop: 03/20/25 03:59 Last Admin: 02/19/25 03:19 Dose: 1 each Miscellaneous Information (Tpn/Ppn Consult Pharmacy) 1 each N/A UD PRN PRN Reason: Consult Stop: 03/18/25 09:00 Morphine Sulfate (Morphine Sulfate 2 Mg/Ml Carp) 2 mg IV Q3H PRN PRN Reason: Pain (1,2,3,4,5) & Pre PT Stop: 02/26/25 02:50 Last Admin: 02/19/25 08:20 Dose: 2 mg Morphine Sulfate (Morphine Sulfate 4 Mg/Ml 1 Ml Carp\Vial) 4 mg IV Q3H PRN PRN Reason: Pain (6,7,8,9,10) Stop: 02/26/25 02:50 Last Admin: 02/19/25 03:12 Dose: 4 mg Ondansetron HCl (Ondansetron Inj 2 Mg/Ml 2 Ml Vial) 4 mg IV Q6H PRN PRN Reason: Nausea And Vomiting Stop: 03/14/25 02:50 Last Admin: 02/19/25 03:37 Dose: 4 mg Simethicone (Simethicone 80 Mg Chew) 160 mg PO Q6H [facility] Stop: 03/19/25 17:29 Last Admin: 02/19/25 06:37 Dose: Not Given Sucralfate (Sucralfate 1 Gm/10 Ml Udc) 1 gm PO ACHS PRN PRN Reason: GI Upset Stop: 03/14/25 11:29 Last Admin: 02/13/25 16:33 Dose: 1 gm Sucralfate (Sucralfate 1 Gm/10 Ml Udc) 1 gm PO QID [facility] Stop: 03/15/25 19:14 Last Admin: 02/19/25 08:21 Dose: 1 gm PG Care Time/CCT Total # of Minutes Spent Total Time Spent with Patient: Total time spent is greater than 50% in coordination of care (as documented) at patient's floor/unit and/or counseling patient: Coding Level of Care Code 01144 SUB INP/OBS CARE 07/02MIN Diagnoses Vomiting R11.10 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
[2025-02-19] MEDS: MAGNESIUM SULFATE / D5W 1 GM/100 ML BAG IV SCH (10:03)
[2025-02-19] MEDS: CLINOLIPID 20% IV FAT EMULSION 250 ML IV SCH (15:33)
[2025-02-19] MEDS: [UNRECOGNIZED DRUG - OTHER] IV SCH (15:33)
[2025-02-19] MEDS: CENTRAL TPN IV SCH (15:33)
[2025-02-19] MEDS ORDERED: NEOMYCIN/POLYMYX/BACITR OINT 15 GM TUBE EXT PRN (16:12)
[2025-02-19] MEDS: diphenhydrAMINE 50 MG/ML VIAL IV STA (20:36)
[2025-02-20 08:47] LABS: Anion Gap 4.0 (3-11); Blood Urea Nitrogen 13.0 mg/dl (6-23); Calcium 8.7 mg/dl (8.6-10.3); Carbon Dioxide 32.0 mmol/L (21-32); Chloride 103.0 mmol/L (98-107); Creatinine Clr Calc Pharmacy 186.6 ml/min; Glucose 103.0 mg/dl (70-99(Fasting)); Magnesium 1.6 mg/dl (1.7-2.4); Potassium 3.6 mmol/L (3.5-5.1); Sodium 139.0 mmol/L (136-145)
[2025-02-20] MEDS: GABAPENTIN 100 MG CAP PO SCH (09:48)
--- NOTE | 2025-02-20 09:50 | Hospitalist Progress Note ---
Date of Service February 20, 2025 Assessment & Plan (1) Vomiting: (2) Metastatic disease: Plan 34yo female with history of metastatic breast cancer (lesions to spine, lung, liver, brain) presenting with multiple episodes of vomiting with hematemesis prior to arrival. Patient has had hematemesis on several occasions necessitating hospital admission. Patient had an [place] [facility] [place] duodenal and esophageal ulcers. she was unable to tolerate solid food. she was able to tolerate clear liquid if we premediated her with ativan. on 02/16, she is agreeable for TPN. oncology cleared #Vomiting/Hematemesis - on 02/16, started on TPN, has vomiting episode with solid food ativan, compazine. denied any abdominal spasm oncology team cleared for TPN via [facility] (started on TPN on 02/16) seen by GI and deferring EGD gastritis, esophagitis, carafate, PPI oral, pepcid oral headache episode patient deferring brain MRI while at [facility] severe claustrophobia TPN via chemport started on 02/16 monitor for magnesium, phosphate, lipid panel and potassium neutropenia -maintain on precaution, low bacteria diet malignant bowel obstruction starting her on TPN on 02/16/2025 monitor magnesium, phsophate level, and sodium oncology; Dr. Zepeda, cleared for DC hypokalemia, she's on dextrose with 20meq kcl cancer related pain she still need IV morphine 2-4 mg for her bone metastasis #Metastatic breast cancer oncology requested that palliative care to be involved. she set to begin radiation therapy treatment on 02/20/2025 -chemotherapy with Gemcitabine and Carboplatin -Typically gets 3 week rotations of chemotherapy with the first week consisting of the combination therapy, second week with monotherapy and third week free of medications -Pain control with IV Tylenol, Morphine PRN she's going to [facility] ([place]) for 2nd opinion. ingrown toenail; s/p bedside procedure by podiatry on 02/17 #Anxiety -Alprazolam PRN - continue home dose -Continue Escitalopram #PPx - SCDs and JAMES stockings Code - FULL Admission and Anticipated Discharge Date Admission Date: February 12, 2025 Subjective she still vomited her breakfast she's will need TPN still have significant thoracic back pain. added gabapentin low dose for pain control plan for radiation therapy in the afternoon discharge 24-48 hours away Physical Exam Physical Exam: VITALS: Reviewed. WEIGHT/BMI reviewed. GEN: Healthy appearing, well-developed, NAD. -Head: NC/AT; -Eyes: PERRL, EOMI. No discharge or redn ess; NECK: Supple, with no masses. CV: RRR, no m/r/g; + for chemport LUNGS: CTAB, no w/r/c. ABD: Soft, NT/ND, NBS, no masses or organomegaly. MSK: No deformities, Normal gait. EXT: No clubbing, cyanosis, or edema. NEURO: Ambulating with no limitations. Normal muscle strength and tone. No focal deficits. Results & Data Results & Data Vital Signs (Past 12 Hours) Vital Signs Temp Pulse Pulse Resp BP Pulse Ox O2 Del Method 02/20/25 07:15 36.9 C 77 16 102/70 95 Room Air 02/20/25 06:26 78 02/20/25 02:56 36.8 C 73 16 99/66 L 98 Room Air 02/19/25 23:32 36.6 C 79 16 115/70 94 Room Air Laboratory Results Laboratory Results - last 72 hr 02/17/25 02/17/25 02/18/25 12:43 18:18 00:19 WBC RBC Hgb Hct MCV MCH MCHC RDW Std Deviation RDW Coeff of Ara Plt Count MPV Sodium Potassium Chloride Carbon Dioxide Anion Gap BUN Creatinine Est Cr Clr Drug Dosing eGFR BUN/Creatinine Ratio Glucose POC Glucose 116 H 112 H 89 Calcium Phosphorus Magnesium Total Bilirubin AST ALT Alkaline Phosphatase Total Protein Albumin Globulin Albumin/Globulin Ratio Triglycerides Cholesterol LDL Cholesterol, Calc VLDL Cholesterol, Calc HDL Cholesterol Cholesterol/HDL Ratio 02/18/25 02/18/25 02/18/25 06:13 11:59 17:37 WBC 1.67 L RBC 2.68 L Hgb 8.2 L Hct 24.5 L MCV 91.4 MCH 30.6 MCHC 33.5 RDW Std Deviation 61.1 H RDW Coeff of Ara 18.3 H Plt Count 57 L MPV 10.0 Sodium 139 Potassium 3.8 Chloride 103 Carbon Dioxide 32 Anion Gap 4 BUN 9 Creatinine 0.35 L Est Cr Clr Drug Dosing 191.9 eGFR 135.76 BUN/Creatinine Ratio 25.7 H Glucose 82 POC Glucose 101 H 100 H Calcium 8.6 Phosphorus 4.2 Magnesium 1.7 Total Bilirubin 0.4 AST 57 H ALT 31 Alkaline Phosphatase 82 Total Protein 5.4 L Albumin 3.1 L Globulin 2.3 L Albumin/Globulin Ratio 1.3 Triglycerides 81 Cholesterol 107 LDL Cholesterol, Calc 58 VLDL Cholesterol, Calc 16 HDL Cholesterol 33 Cholesterol/HDL Ratio 3.2 02/19/25 02/19/25 02/19/25 00:49 06:51 07:00 WBC RBC Hgb Hct MCV MCH MCHC RDW Std Deviation RDW Coeff of Ara Plt Count MPV Sodium 140 Potassium 3.9 Chloride 104 Carbon Dioxide 32 Anion Gap 4 BUN 12 Creatinine 0.38 L Est Cr Clr Drug Dosing 176.1 eGFR 133.10 BUN/Creatinine Ratio 31.6 H Glucose 83 POC Glucose 101 H 89 Calcium 8.7 Phosphorus 4.6 Magnesium 1.5 L Total Bilirubin 0.5 AST 91 H ALT 44 Alkaline Phosphatase 99 Total Protein 5.5 L Albumin 3.1 L Globulin 2.4 L Albumin/Globulin Ratio 1.3 Triglycerides Cholesterol LDL Cholesterol, Calc VLDL Cholesterol, Calc HDL Cholesterol Cholesterol/HDL Ratio 02/19/25 02/19/25 02/19/25 11:52 18:06 23:30 WBC RBC Hgb Hct MCV MCH MCHC RDW Std Deviation RDW Coeff of Ara Plt Count MPV Sodium Potassium Chloride Carbon Dioxide Anion Gap BUN Creatinine Est Cr Clr Drug Dosing eGFR BUN/Creatinine Ratio Glucose POC Glucose 98 103 H 101 H Calcium Phosphorus Magnesium Total Bilirubin AST ALT Alkaline Phosphatase Total Protein Albumin Globulin Albumin/Globulin Ratio Triglycerides Cholesterol LDL Cholesterol, Calc VLDL Cholesterol, Calc HDL Cholesterol Cholesterol/HDL Ratio 02/20/25 02/20/25 02/20/25 06:15 06:17 08:07 WBC RBC Hgb Hct MCV MCH MCHC RDW Std Deviation RDW Coeff of Ara Plt Count MPV Sodium Cancelled 139 Potassium Cancelled 3.6 Chloride Cancelled 103 Carbon Dioxide Cancelled 32 Anion Gap Cancelled 4 BUN Cancelled 13 Creatinine Cancelled 0.36 L Est Cr Clr Drug Dosing Cancelled 186.6 eGFR Cancelled 134.84 BUN/Creatinine Ratio Cancelled 36.1 H Glucose Cancelled 103 H POC Glucose 85 Calcium Cancelled 8.7 Phosphorus Cancelled 3.7 Magnesium Cancelled 1.6 L Total Bilirubin AST ALT Alkaline Phosphatase Total Protein Albumin Globulin Albumin/Globulin Ratio Triglycerides Cholesterol LDL Cholesterol, Calc VLDL Cholesterol, Calc HDL Cholesterol Cholesterol/HDL Ratio Medications Administered Current Inpatient Medications Al Hydrox/Mg Hydrox/Simethicone (Aluminum/Magnesium Susp 30 Ml Udc) 15 ml PO Q6H MIN Stop: 03/17/25 08:14 Last Admin: 02/20/25 07:41 Dose: 15 ml Alprazolam (Alprazolam 0.5 Mg Tablet) 0.5 mg PO Q8H PRN PRN Reason: Anxiety Stop: 03/14/25 02:50 Diphenoxylate HCl/Atropine (Diphenoxylate/Atropine 2.5/0.025mg Tab) 1 tab PO Q6H PRN PRN Reason: Diarrhea Stop: 03/14/25 02:50 Escitalopram Oxalate (Escitalopram Oxalate 10 Mg Tab) 10 mg PO HS MIN Stop: 03/14/25 20:59 Last Admin: 02/19/25 20:38 Dose: 10 mg Gabapentin (Gabapentin 100 Mg Cap) 100 mg PO QAM MIN Stop: 03/22/25 08:59 Heparin Sodium (Porcine) (Heparin 100 Unit/Ml 5ml Flush) 5 ml FLUSH PRN PRN PRN Reason: Flush Stop: 03/14/25 06:49 Hyoscyamine (Hyoscyamine Sulfate 0.125 Mg Tab) 0.125 mg SL Q4H PRN PRN Reason: Cramping Stop: 03/16/25 09:22 Last Admin: 02/14/25 10:07 Dose: 0.125 mg Famotidine (Pepcid 20mg Iv Push) 20 mg in 5 mls @ 2.5 mls/min IV Q12H MIN Stop: 03/14/25 02:50 Last Admin: 02/20/25 02:29 Dose: 2.5 mls/min Prochlorperazine 10 mg/ (Syringe) 10 mls @ 5 mls/min IV Q6H PRN PRN Reason: Nausea And Vomiting Stop: 03/17/25 07:37 Last Admin: 02/19/25 16:20 Dose: 5 mls/min Amino Acids/Dextrose 1,092 ml/ (Nutrition (Parenteral)) 1,092 mls @ 45.5 mls/hr IV .Q24H MIN; Protocol Stop: 02/20/25 15:59 Last Admin: 02/19/25 15:33 Dose: 45.5 mls/hr Lorazepam (Lorazepam 2 Mg/1 Ml Vial) 0.5 mg IV Q8H PRN PRN Reason: Anxiety/Agitation Stop: 03/15/25 12:00 Last Admin: 02/20/25 08:50 Dose: 0.5 mg Melatonin (Melatonin 3 Mg Tab) 3 mg PO HS [facility] Stop: 03/22/25 20:59 Miscellaneous (Stop Clinolipid) 1 each N/A TODAY@04 [facility] Stop: 03/20/25 03:59 Last Admin: 02/20/25 04:08 Dose: Not Given Miscellaneous Information (Tpn/Ppn Consult Pharmacy) 1 each N/A UD PRN PRN Reason: Consult Stop: 03/18/25 09:00 Morphine Sulfate (Morphine Sulfate 2 Mg/Ml Carp) 2 mg IV Q3H PRN PRN Reason: Pain (1,2,3,4,5) & Pre PT Stop: 02/26/25 02:50 Last Admin: 02/19/25 15:59 Dose: 2 mg Morphine Sulfate (Morphine Sulfate 4 Mg/Ml 1 Ml Carp\Vial) 4 mg IV Q3H PRN PRN Reason: Pain (6,7,8,9,10) Stop: 02/26/25 02:50 Last Admin: 02/20/25 07:48 Dose: 4 mg Neomycin/Polymyxin/Bacitracin (Neomycin/Polymyx/Bacitr Oint 15 Gm Tube) 1 appln EXT Q48H PRN PRN Reason: Consult Stop: 03/21/25 16:11 Ondansetron HCl (Ondansetron Inj 2 Mg/Ml 2 Ml Vial) 4 mg IV Q6H PRN PRN Reason: Nausea And Vomiting Stop: 03/14/25 02:50 Last Admin: 02/20/25 07:41 Dose: 4 mg Pantoprazole Sodium (Pantoprazole 40 Mg Tab) 40 mg PO BID [facility] Stop: 03/21/25 20:59 Last Admin: 02/20/25 07:42 Dose: 40 mg Simethicone (Simethicone 80 Mg Chew) 160 mg PO Q6H [facility] Stop: 03/19/25 17:29 Last Admin: 02/20/25 06:19 Dose: 160 mg Sucralfate (Sucralfate 1 Gm/10 Ml Udc) 1 gm PO ACHS PRN PRN Reason: GI Upset Stop: 03/14/25 11:29 Last Admin: 02/13/25 16:33 Dose: 1 gm Sucralfate (Sucralfate 1 Gm/10 Ml Udc) 1 gm PO QID MIN Stop: 03/15/25 19:14 Last Admin: 02/20/25 07:42 Dose: 1 gm PG Care Time/CCT Total # of Minutes Spent Total Time Spent with Patient: Total time spent is greater than 50% in coordination of care (as documented) at patient's floor/unit and/or counseling patient: Coding Level of Care Code 06490 SUB INP/OBS CARE 07/02MIN Diagnoses Vomiting R11.10 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
[2025-02-20] MEDS: PROCHLORPERAZINE 10 MG in SYRINGE 8 ML IV ONE (15:45)
[2025-02-20] MEDS: [UNRECOGNIZED DRUG - OTHER] IV SCH (16:44)
[2025-02-20] MEDS: CENTRAL TPN IV SCH (16:44)
[2025-02-20] MEDS ORDERED: MAG SULFATE 50% 1GM/2ML VIAL IV ONE (18:08)
[2025-02-20] MEDS: MAGNESIUM SULFATE / D5W 1 GM/100 ML BAG IV SCH (18:16)
[2025-02-20] MEDS: diphenhydrAMINE 50 MG/ML VIAL IV STA (22:07)
[2025-02-20] MEDS: MELATONIN 3 MG TAB PO SCH (22:08)
[2025-02-21 07:04] LABS: Anion Gap 4.0 (3-11); Blood Urea Nitrogen 15.0 mg/dl (6-23); Calcium 8.6 mg/dl (8.6-10.3); Carbon Dioxide 32.0 mmol/L (21-32); Chloride 104.0 mmol/L (98-107); Creatinine Clr Calc Pharmacy 191.9 ml/min; Glucose 87.0 mg/dl (70-99(Fasting)); Magnesium 1.8 mg/dl (1.7-2.4); Potassium 3.9 mmol/L (3.5-5.1); Sodium 140.0 mmol/L (136-145)
--- NOTE | 2025-02-21 13:54 | Hospitalist Progress Note ---
Date of Service February 21, 2025 Assessment & Plan (1) Vomiting: (2) Metastatic disease: Plan 34yo female with history of metastatic breast cancer (lesions to spine, lung, liver, brain) presenting with multiple episodes of vomiting with hematemesis prior to arrival. Patient has had hematemesis on several occasions necessitating hospital admission. Patient had an [place] [facility] [place] which revealed duodenal and esophageal ulcers. she was unable to tolerate solid food. she was able to tolerate clear liquid if we premediated her with ativan. on 02/16, she is agreeable for TPN. oncology cleared #Vomiting/Hematemesis - she still have vomiting and nausea with full liquid palliative care consult at this point, she receiving her nutrition through TPN ativan, compazine. denied any abdominal spasm oncology team cleared for TPN via [facility] (started on TPN on 02/16) seen by GI and deferring EGD plan of care patient stated if Dr. Zepeda do not believe she's a good chemotherapy candidate she will ask for 2nd opinion she following with [facility] ([place]) for 2nd opinion gastritis, esophagitis, carafate, PPI oral, pepcid oral headache episode patient deferring brain MRI while at [facility] severe claustrophobia TPN via chemport started on 02/16 monitor for magnesium, phosphate, lipid panel and potassium neutropenia -maintain on precaution, low bacteria diet malignant bowel obstruction starting her on TPN on 02/16/2025 monitor magnesium, phsophate level, and sodium oncology; Dr. Zepeda, cleared for DC hypokalemia, she's on dextrose with 20meq kcl cancer related pain she still need IV morphine 2-4 mg for her bone metastasis she's has pain in her thoracic spine from bone metastasis #Metastatic breast cancer oncology requested that palliative care to be involved. she set to begin radiation therapy treatment on 02/20/2025 -chemotherapy with Gemcitabine and Carboplatin -Typically gets 3 week rotations of chemotherapy with the first week consisting of the combination therapy, second week with monotherapy and third week free of medications -Pain control with IV Tylenol, Morphine PRN she's going to [facility] ([place]) for 2nd opinion. ingrradha toenail; s/p bedside procedure by podiatry on 02/17 #Anxiety -Alprazolam PRN - continue home dose -Continue Escitalopram #PPx - SCDs and JAMES stockings Code - FULL Admission and Anticipated Discharge Date Admission Date: February 12, 2025 Subjective she is now having vomiting with both liquid and solid food she's on TPN we discused about her senior living plan she stated if Dr. Zepeda don't believe she a good chemotherapy candidate she will seek 2nd opinion with another provider palliative medicine consult she's has another session of radiation therapy today Physical Exam Physical Exam: VITALS: Reviewed. WEIGHT/BMI reviewed. GEN: Healthy appearing, well-developed, NAD. PSYCH: Good Judgment. AOx3. Normal memory, mood, and affect. HEENT -Head: NC/AT; -Mouth and throat: MMM. Normal gums, muc salena, palate,. Good dentition. NECK: Supple, with no masses. CV: RRR, no m/r/g. LUNGS: CTAB, no w/r/c. congested breath sound ABD: Soft, NT/ND, NBS, no masses or organomegaly. SKIN: Warm, well perfused. No skin rashes or abnormal lesions. MSK: thoracic spine tender to palpitation EXT: No clubbing, cyanosis, or edema. 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
[2025-02-21] MEDS ORDERED: ONDANSETRON INJ 2 MG/ML 2 ML VIAL IV PRN (15:23)
--- NOTE | 2025-02-21 15:50 | Palliative Care Consultation ---
Date of Consultation February 21, 2025 Assessment & Plan (1) Refractory nausea and vomiting: Pt c/o intractable N/V for about six weeks. She shared that she has constant nausea that frequently worsens causing emesis, but the underlying nausea has been constant and refractory to medications for several weeks. She shared that she has had 4mg of zofran which offers no relief. She reports relief from rotating zofran and compazine previously for nausea after cancer treatments, but this time nothing worked so she came to hospital. We discussed utilizing 10mg compazine and zofran (8mg) both q6h, but offset timing so she gets one or other every 3hr tonight. Pt agreeable to this plan. Consider olanzapine or haldol if N/V remains refractory. CT abd/pelvis to assess for possible mechanical/obstructive causes ordered by attending given progression of metastatic disease on previous. Zofran changed to 8mg IVP q6hr alternate zofran/compazine so one or other is given every three hours MIN until nausea relieved then PRN Continue compazine 10mg IV q6hr (2) Cancer related pain: Pt c/o chronic aching type pain in thoracic-lumbar spinal area that she relates to her metastatic cancer. She states that this pain bothers her less since admission and she attributes the reduction in pain to being mostly bed bound while hospitalized. She feels her back pain is much worse at home because she is caring for her young children. The back pain interferes with her living her life and performing iADLs for herself and her family. Although she does appear to be using her PRN morphine more frequently here, also contributing to her lower pain rating. She reports chronic abdominal pain; sharp/gnawing pains in RUQ that occasionally radiates posteriorly around flank. She shared that the morphine 4mg PRN has been managing her pain well, but she has concerns for lethargy and admits she does not always ask for it when needed. I encouraged her to not let her pain escalated beyond moderate level and to request PRN medications as she feels pain rising. She shared that her N/V is more bothersome right now. PRN morphine use has increased from 1-2 per day to 6x per day over last 48-72hrs. She is aware that her disease is extensively and rapidly metastatic and is interested in ongoing aggressive cancer directed treatments. We discussed planning for more consistent pain management with possible initiation of long acting opiate. Discussed that her abd pain may be partially be driven by her N/V, and plan to get better control of N/V as inpt while we use her PRN morphine use to dose find for potential duragesic patch. Consider RUBBER PRODUCTION MACHINE OPERATOR for dose finding if she is alert enough for RUBBER PRODUCTION MACHINE OPERATOR use. I suspect her PRN opiate requirement will be reduced with better control her nausea. (3) Palliative care by specialist: Met with pt at bedside, she had just returned from radiation treatment and no visitors were present. Introduced Palliative Medicine and explained our role in advanced care planning, symptom management and navigation through the progression of life limiting disease. Patient was receptive to palliative services for goals of care discussions. Reviewed we are different from hospice, a home health nurse visiting service. (4) Lethargy: may be related to pain/antiemetic medications vs aggressively metastatic breast cancer with mets to brain. consider repeat MRI brain given notable progression/carcinomatoses of cancer on CT CAP today and prior caudate mets noted on MRI brain (12/05/24) Plan as above; it would be beneficial for patient to follow with Dr Johnson as outpt for ongoing symptom management and navigation through progression of disease. Discussed with pt and she is agreeable. History of Present Illness Reason for Consultation: pain/symptom management Requesting Physician: Beatrice Cristina DO Attending Physician: Beatrice Cristina DO History of Present Illness Elvira Almendarez is a 34yo female presenting with nausea, multiple episodes of vomiting (brown liquid with small amount of blood). Patient received chemotherapy yesterday. She has had multiple episodes of vomiting with some blood. Patient has history of metastatic breast cancer which was diagnosed 04/28/2023 (ER/NV +, HER2 equivocol) with lesions to the spine, lung, brain and liver. Patient received XRT, was on several regimens of chemotherapy - now receiving Gemcitabine and Carboplatin since November 2024, last chemotherapy treatment yesterday 02/10/2025. In January patient was admitted to [facility] due to hematemesis. She had an EGD that showed esophageal and duodenal ulcers. She was admitted to [facility] 01/31 - 02/01/25 after presenting with hematemesis and epistaxis. She was found to be thrombocytopenic with platelet count of 26. She was transfused with platelets and ultimately discharged home. Patient has been compliant with her Protonix 40mg po BID. Allergies Allergy/AdvReac Type Severity Reaction Status Date / Time No Known Drug Allergies Allergy Unknown Verified 02/13/25 17:15 Home Medications Medication Instructions Recorded Confirmed Type breast pump #1 ea 05/08/22 02/03/25 Rx ascorbic acid (vitamin C) 500 mg 500 mg PO QAM 07/12/23 02/11/25 History tablet (Vitamin C) multivitamin 1 tab PO DAILY ##0 07/12/23 02/11/25 History prochlorperazine maleate 10 mg 10 mg PO QID PRN Nausea 07/12/23 02/11/25 History tablet (Compazine) fulvestrant 250 mg/5 mL 250 mg IM MONTHLY 10/09/23 02/11/25 History intramuscular syringe (Faslodex) tramadol 50 mg tablet 50 mg PO BID PRN Pain 10/21/23 02/11/25 History diphenoxylate-atropine 2.5 1 tab PO Q6H PRN Diarrhea 03/04/24 02/11/25 History mg-0.025 mg tablet (Lomotil) cholecalciferol (vitamin D3) 25 25 mcg PO DAILY 06/23/24 02/11/25 History mcg (1,000 unit) tablet (Vitamin D3) escitalopram oxalate 10 mg tablet 10 mg PO HS 11/19/24 02/11/25 History (Lexapro) ondansetron 8 mg disintegrating 8 mg PO TID PRN Nausea And Vomiting 11/19/24 02/11/25 History tablet oxycodone 10 mg tablet 10 mg PO Q8 PRN Pain 11/19/24 02/11/25 History calcium carbonate (Calcium 500) 500 mg PO BID 12/05/24 02/11/25 History alprazolam 0.5 mg tablet (Xanax) 0.5 mg PO Q8H PRN Anxiety 12/12/24 02/11/25 History potassium chloride 20 mEq oral 20 meq PO DAILY #30 ea 12/13/24 02/11/25 Rx packet pantoprazole 40 mg tablet,delayed 40 mg PO BID #30 tabs 02/01/25 02/11/25 Rx release sucralfate 100 mg/mL oral 1 g (10 mL) PO QID #400 mL 02/01/25 02/11/25 Rx suspension Patient History Medical History Hematemesis Anemia Metastatic cancer Breast cancer metastasized to liver Hx of nausea Breast cancer metastasized to liver Most recent chemo 11/22/24 per [facility] record Elevated liver enzymes History of anemia History of anxiety Hx of jaundice Cancer with mets to liver Hypocalcemia Hypokalemia History of cervical dysplasia History of pneumonia (04/2023) 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, ER/Pr+, Her 2 neg History of COVID-19 11/2021- "mild symptoms" > resolved Missed Hx Surgical History Port-A-Cath in place (11/11/23) Insertion of Access Port with Fluoroscopy Right Internal Jugular Vein Hx of bilateral oophorectomy (10/2023) History of ERCP 07/14/23, [facility] Hx laparoscopic cholecystectomy Robotic Laparoscopic Cholecystectomy: Grade 1 view, MAC#3, ETT 7.0 at [facility] History of dilatation and curettage S/p bilateral myringotomy with tube placement S/P tympanoplasty Right x2 History of low transverse section x2, with tubal ligation S/P wisdom tooth extraction S/P LEEP of cervix Family History Grandmother (Maternal) Breast cancer Aunt Breast cancer Grandfather Heart murmur Father Family history of reaction to anesthesia nausea/vomiting Other Twins, both liveborn Social History Smoking Status: Never smoker Tobacco Type: Cigarettes Second Hand Exposure: No; Do You Dip or Chew Tobacco: No; Hx Alcohol Use: No Hx Substance Use: Yes Last Used Substance: Days (ago) Substance Use Type Other:: edibles or topical Preferred Language: Lithuanian Communication Ability: Effective Visual Impairment: No Limitations Squilgeer Required: No Beliefs That Will Affect Care: None marital status: marital status details: Austin Almendarez (36) [phone] Current Living Situation: Spouse Current Living Situation Comment: and two children 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 Feels Safe at Home: Yes Assistive Devices: None Review of Systems Review of Systems: All systems reviewed & are unremarkable except as noted in HPI & below Physical Exam Constitutional: WD/WN, vitals as above Eyes: PERRL, conjunctivae normal, anicteric sclerae ENMT: Ears: no hearing impairment Neck: trachea midline, no thyromegaly Respiratory: normal respiratory effort, lungs clear to auscultation Cardiovascular: RRR, no murmur, no edema Gastrointestinal (Abdomen): normal bowel sounds, soft, nontender, no hepatosplenomegaly Skin: no rashes, warm and dry + pallor Psychiatric: A+Ox3, euthymic affect Lymphatic: no cervical or axillary lymphadenopathy Results & Data Vital Signs (Past 12 Hours) Vital Signs Temp Pulse Pulse Resp BP Pulse Ox O2 Del Method 02/21/25 11:49 36.6 C 101 H 18 125/88 98 Room Air 02/21/25 10:00 86 02/21/25 08:00 36.8 C 87 16 108/76 96 Room Air Laboratory Results Abnormal lab results 02/20/25 02/21/25 02/21/25 Range/Units 18:01 06:15 11:38 Creatinine 0.35 L (0.6-1.2) mg/dl BUN/Creatinine Ratio 42.9 H (10-20) POC Glucose 103 H 108 H (70-99) mg/dl Diagnostic Findings Abdomen/Pelvis CT 02/11/25 22:16 Exam(s): CT ABDOMEN + PELVIS With Contrast EXAM: CT Abdomen and Pelvis With Intravenous Contrast CLINICAL HISTORY: Reason for exam: Hematemesis, history of metastatic cancer. TECHNIQUE: Axial computed tomography images of the abdomen and pelvis with intravenous contrast. CTDI is 14 mGy and DLP is 769 mGy-cm. Automated exposure control was utilized for the study. A dose lowering technique was utilized adhering to the principles of ALARA. COMPARISON: 01/30/2025 FINDINGS: ABDOMEN: Liver: Widespread metastatic disease in the liver which has progressed. Gallbladder and bile ducts: The gallbladder appears surgically absent. Pancreas: Unremarkable. Spleen: Spleen mildly enlarged measuring 13 cm. Adrenals: Unremarkable. Kidneys and ureters: Unremarkable. No obstructing stones. No hydronephrosis. Stomach and bowel: Mucosal thickening within the colon consistent with colitis. Mucosal thickening within the gastric antrum. PELVIS: Appendix: No findings to suggest acute appendicitis. Bladder: Unremarkable. Reproductive: Unremarkable as visualized. ABDOMEN and PELVIS: Intraperitoneal space: Trace ascites. No free air. Bones/joints: No acute fracture. Extensive sclerotic metastatic disease. Soft tissues: Unremarkable. Vasculature: Unremarkable. Lymph nodes: Unremarkable. IMPRESSION: 1. Widespread metastatic disease in the liver which has progressed. 2. Trace ascites. 3. Mucosal thickening within the colon consistent with colitis. 4. Mucosal thickening within the gastric antrum consistent with gastritis. 5. Diffuse sclerotic osseous metastatic disease. Electronically signed by: Justin Ballesteros MD 02/11/25 23:41 PM Medications Administered Current Inpatient Medications Al Hydrox/Mg Hydrox/Simethicone (Aluminum/Magnesium Susp 30 Ml Udc) 15 ml PO Q6H MIN Stop: 03/17/25 08:14 Last Admin: 02/21/25 14:37 Dose: 15 ml Alprazolam (Alprazolam 0.5 Mg Tablet) 0.5 mg PO Q8H PRN PRN Reason: Anxiety Stop: 03/14/25 02:50 Diphenoxylate HCl/Atropine (Diphenoxylate/Atropine 2.5/0.025mg Tab) 1 tab PO Q6H PRN PRN Reason: Diarrhea Stop: 03/14/25 02:50 Escitalopram Oxalate (Escitalopram Oxalate 10 Mg Tab) 10 mg PO HS MIN Stop: 03/14/25 20:59 Last Admin: 02/20/25 22:08 Dose: 10 mg Gabapentin (Gabapentin 100 Mg Cap) 100 mg PO QAM MIN Stop: 03/22/25 08:59 Last Admin: 02/21/25 08:05 Dose: 100 mg Heparin Sodium (Porcine) (Heparin 100 Unit/Ml 5ml Flush) 5 ml FLUSH PRN PRN PRN Reason: Flush Stop: 03/14/25 06:49 Hyoscyamine (Hyoscyamine Sulfate 0.125 Mg Tab) 0.125 mg SL Q4H PRN PRN Reason: Cramping Stop: 03/16/25 09:22 Last Admin: 02/14/25 10:07 Dose: 0.125 mg Famotidine (Pepcid 20mg Iv Push) 20 mg in 5 mls @ 2.5 mls/min IV Q12H MIN Stop: 03/14/25 02:50 Last Admin: 02/21/25 14:37 Dose: 2.5 mls/min Prochlorperazine 10 mg/ (Syringe) 10 mls @ 5 mls/min IV Q6H PRN PRN Reason: Nausea And Vomiting Stop: 03/17/25 07:37 Last Admin: 02/21/25 15:37 Dose: 5 mls/min Amino Acids/Dextrose 1,096 ml/ (Nutrition (Parenteral)) 1,096 mls @ 45.7 mls/hr IV .[id number] [facility]; Protocol Stop: 02/21/25 15:58 Last Admin: 02/20/25 16:44 Dose: 45.7 mls/hr Amino Acids/Dextrose 1,095 ml/ (Nutrition (Parenteral)) 1,095 mls @ 45.6 mls/hr IV .Q24H [facility]; Protocol Stop: 02/22/25 15:59 Fat Emulsion-[place] Oil/Soybean Oil (Clinolipid 20% Iv Fat Emulsion) 250 mls @ 20.8 mls/hr IV .Q12H2M [facility] Stop: 02/22/25 04:01 Ondansetron HCl 8 mg/ Dextrose 54 mls @ 216 mls/hr IV Q6H PRN PRN Reason: NAUSEA AND VOMITING Stop: 03/23/25 15:33 Lorazepam (Lorazepam 2 Mg/1 Ml Vial) 0.5 mg IV Q8H PRN PRN Reason: Anxiety/Agitation Stop: 03/15/25 12:00 Last Admin: 02/21/25 09:42 Dose: 0.5 mg Melatonin (Melatonin 3 Mg Tab) 3 mg PO HS [facility] Stop: 03/22/25 20:59 Last Admin: 02/20/25 22:08 Dose: Not Given Miscellaneous (Stop Clinolipid) 1 each N/A TODAY@04 [facility] Stop: 03/20/25 03:59 Last Admin: 02/21/25 03:08 Dose: Not Given Miscellaneous Information (Tpn/Ppn Consult Pharmacy) 1 each N/A UD PRN PRN Reason: Consult Stop: 03/18/25 09:00 Morphine Sulfate (Morphine Sulfate 2 Mg/Ml Carp) 2 mg IV Q3H PRN PRN Reason: Pain (1,2,3,4,5) & Pre PT Stop: 02/26/25 02:50 Last Admin: 02/19/25 15:59 Dose: 2 mg Morphine Sulfate (Morphine Sulfate 4 Mg/Ml 1 Ml Carp\\Vial) 4 mg IV Q3H PRN PRN Reason: Pain (6,7,8,9,10) Stop: 02/26/25 02:50 Last Admin: 02/21/25 09:37 Dose: 4 mg Neomycin/Polymyxin/Bacitracin (Neomycin/Polymyx/Bacitr Oint 15 Gm Tube) 1 appln EXT Q48H PRN PRN Reason: Consult Stop: 03/21/25 16:11 Pantoprazole Sodium (Pantoprazole 40 Mg Tab) 40 mg PO BID [facility] Stop: 03/21/25 20:59 Last Admin: 02/21/25 08:05 Dose: 40 mg Simethicone (Simethicone 80 Mg Chew) 160 mg PO Q6H [facility] Stop: 03/19/25 17:29 Last Admin: 02/21/25 12:08 Dose: 160 mg Sucralfate (Sucralfate 1 Gm/10 Ml Udc) 1 gm PO ACHS PRN PRN Reason: GI Upset Stop: 03/14/25 11:29 Last Admin: 02/13/25 16:33 Dose: 1 gm Sucralfate (Sucralfate 1 Gm/10 Ml Udc) 1 gm PO QID [facility] Stop: 03/15/25 19:14 Last Admin: 02/21/25 12:08 Dose: 1 gm PG Care Time/CCT Total # of Minutes Spent Total Time Spent with Patient: Total time spent is greater than 50% in coordination of care (as documented) at patient's floor/unit and/or counseling patient: [place] [address] IN/OBS CONSULT LVL 4,60M Patient Type New Medical Decision Making Moderate Complexity Diagnoses Refractory nausea and vomiting R11.2 Cancer related pain G89.3 Palliative care by specialist Z51.5 Lethargy R53.83
[2025-02-21] MEDS: CLINOLIPID 20% IV FAT EMULSION 250 ML IV SCH (16:03)
[2025-02-21] MEDS: [UNRECOGNIZED DRUG - OTHER] IV SCH (16:03)
[2025-02-21] MEDS: CENTRAL TPN IV SCH (16:03)
[2025-02-21] MEDS: OPTIRAY 320 100ml IV ONE (16:29)
--- NOTE | 2025-02-21 16:32 | XRay Report ---
2 views of the abdomen were obtained Findings: The bowel gas pattern appears unremarkable. No renal or ureteral calculi are seen. No foreign body is evident. No osseous abnormality is seen Impression: Unremarkable abdominal radiographs Electronically signed by Nikita Monique 02-21-2025 4:32 PM
[2025-02-21 16:35] LABS: Anion Gap 6.0 (3-11); Blood Urea Nitrogen 16.0 mg/dl (6-23); Calcium 9.0 mg/dl (8.6-10.3); Carbon Dioxide 31.0 mmol/L (21-32); Chloride 102.0 mmol/L (98-107); Creatinine Clr Calc Pharmacy 198.1 ml/min; Glucose 136.0 mg/dl (70-99(Fasting)); Magnesium 1.8 mg/dl (1.7-2.4); Potassium 4.1 mmol/L (3.5-5.1); Sodium 139.0 mmol/L (136-145)
--- NOTE | 2025-02-21 17:03 | CT Scan Report ---
CT ABDOMEN and PELVIS with and without INTRAVENOUS CONTRAST HISTORY: Abdominal pain TECHNIQUE: CT abdomen and pelvis with and without contrast. IV CONTRAST: 100 mL of OMNIPAQUE 300 ENTERIC CONTRAST: Not Given COMPARISON: CT abdomen pelvis on 02/11/2025. FINDINGS: LOWER CHEST: Small left pleural fluid is again seen. Lobulated left breast malignancy is also again seen and partially visualized. LIVER: Diffuse hepatic metastases again seen yielding a pseudo- cirrhotic appearance. There is ill-defined density within the nas hepatis. Also some of the hepatic metastasis are not clearly from the wall of the distal stomach. The portal vein and the splenic vein are enlarged suggesting portal hypertension. GALLBLADDER/BILIARY: The gallbladder is not well-seen and may be surgically absent or underdistended. No abnormal biliary ductal dilatation has appreciated. SPLEEN: Splenomegaly. PANCREAS: Unremarkable. ADRENALS: Unremarkable. KIDNEYS: Unremarkable. No stones or hydronephrosis identified. PERITONEUM/RETROPERITONEUM. There are enlarged lymph nodes scattered throughout the mesentery, especially in the paracolic gutters. No aortic aneurysm. Small ascites, not significantly changed. GASTROINTESTINAL: No obstruction. Discussion of distal gastric body as above. There is a moderate distention of the gastric lumen proximally. Mild inflammatory changes of the small bowel loops in the large bowel demonstrate wall thickening. REPRODUCTIVE: No suspicious pelvic masses identified. URINARY BLADDER: Inflammatory changes with wall thickening. ABDOMINAL WALL: No significant hernia defect. BONES: No acute findings. Diffuse osseous metastases again seen. IMPRESSION: Redemonstrated heterogeneous left breast mass that is presumably the primary malignancy. Unchanged small left pleural fluid. Diffuse hepatic metastases are again seen. There may be an extracapsular extension of the metastatic disease into the nas hepatis where it appears to abut and possibly extend into the distal gastric body. Proximally the gastric lumen is moderately distended. Possible obstruction may be present secondary to the encroaching mass/metastatic process. If indicated, EGD evaluation may offer additional details. Remainder of the hollow viscus is not appreciably distended As before, mildly prominent mesenteric lymph nodes are seen scattered throughout the omentum, especially in the paracolic gutters. This may relate to the suspected enteritis and colitis picture although omental carcinomatosis is a less likely consideration as well. Also there is evidence of portal hypertension with extensive hepatic metastasis yielding a pseudo-cirrhotic appearance of the liver. The spleen is enlarged and the portal vein and the splenic vein are also enlarged. Given this, the apparent inflammatory changes of the hollow viscus could also be due to portal hypertensive enterocolopathy. Inflammatory changes of the urinary bladder may be due to cystitis Electronically signed by Ruslan Pacheco 02-21-2025 5:02 PM
--- NOTE | 2025-02-21 21:54 | Surgery Consultation ---
Date of Consultation February 21, 2025 Assessment & Plan (1) Vomiting: Patient has been admitted on the hospitalist service. Surgical recommendations are as follows: General Surgery has been asked to see the patient secondary to potential metastases involving her stomach causing gastric outlet obstruction From a surgical standpoint patient does not appear to be a good surgical candidate for any type of surgical resection or intervention Would recommend potentially asking GI for second opinion to see if there is any role for repeat EGD and further evaluate gastric outlet obstruction and see if there is any role for potential stenting (this is a procedure not performed by general surgery at this facility) The patient is found to have a metastases causing gastric outlet obstruction and she is not a candidate for stent consideration may be given to placing a PEG tube for gastric venting Patient is currently receiving TPN for nutrition and incision about whether or not to continue this will be deferred to the medical service The patient's imaging will be reviewed by Dr. Rubio on 02/22/2025 with further recommendations to follow History of Present Illness Reason for Consultation: Gastric outlet obstruction Attending Physician: Beatrice Cristina DO History of Present Illness This is a 34-year-old female with an underlying history of metastatic breast cancer which was diagnosed in April 2023. The patient is noted to have metastases involving her spine, lung, brain, and liver. Patient says that she is currently receiving chemotherapy with her most recent session being approximately 2 weeks ago. Patient has also received radiation therapy secondary to this problem. The patient was admitted to [facility] in January of this year due to hematemesis. The patient had an EGD at that time that showed esophageal and duodenal ulcers. She was also admitted to [facility] in January of this year secondary to hematemesis and epistaxis. At that time it was felt that her bleeding issues were secondary to thrombocytopenia and she was transfused with platelets and was able to be discharged home. The patient presented to [facility] this admission on 02/12/2025 secondary to multiple episodes of vomiting. This episode of nausea vomiting occurred shortly after receiving chemotherapy. She has been seen by hematology/oncology who did not feel she was a good candidate for additional regimens of chemotherapy and the patient is reportedly going to seek a second opinion. She has also been seen by gastroenterology during this admission do not feel there is any endoscopic intervention that could be performed. General surgery was asked to see the patient due to concern for gastric outlet obstruction involving her stomach. Patient notes that she is able to tolerate clear liquids but does have some persistent nausea and vomiting. She specifically denies any abdominal pain. Of note, the patient has been placed on TPN which she has been receiving since February 16 of this year. Imaging that the patient has had this admission thus far has been reviewed. She did have a CT scan of the abdomen pelvis on 02/11/2025. This showed the patient had widespread metastatic disease in the liver which appears to have progressed when compared to prior CT scans. A KUB was performed on 02/21/2025 that did not show any evidence of obstruction. A repeat CT scan of the abdomen pelvis was performed on 02/21/2025. This showed again diffuse liver metastases. Some of these metastases appeared to encroach on the gastric lumen resulting in a possible gastric outlet obstruction. Most recent labs were from today including a chemistry profile showed sodium and potassium were normal. The BUN and creatinine were not elevated. The patient's most recent CBC was from 02/18/2025 that showed a white blood cell count of 1.6. Hemoglobin and hematocrit are 8.2 and 24.5. Platelet count is 57,000. At the time of my interview the patient was resting in bed. She did not appear to be in any distress at the time of my interview. Allergies Allergy/AdvReac Type Severity Reaction Status Date / Time No Known Drug Allergies Allergy Unknown Verified 02/13/25 17:15 Home Medications Medication Instructions Recorded Confirmed Type breast pump #1 ea 05/08/22 02/03/25 Rx ascorbic acid (vitamin C) 500 mg 500 mg PO QAM 07/12/23 02/11/25 History tablet (Vitamin C) multivitamin 1 tab PO DAILY ##0 07/12/23 02/11/25 History prochlorperazine maleate 10 mg 10 mg PO QID PRN Nausea 07/12/23 02/11/25 History tablet (Compazine) fulvestrant 250 mg/5 mL 250 mg IM MONTHLY 10/09/23 02/11/25 History intramuscular syringe (Faslodex) tramadol 50 mg tablet 50 mg PO BID PRN Pain 10/21/23 02/11/25 History diphenoxylate-atropine 2.5 1 tab PO Q6H PRN Diarrhea 03/04/24 02/11/25 History mg-0.025 mg tablet (Lomotil) cholecalciferol (vitamin D3) 25 25 mcg PO DAILY 06/23/24 02/11/25 History mcg (1,000 unit) tablet (Vitamin D3) escitalopram oxalate 10 mg tablet 10 mg PO HS 11/19/24 02/11/25 History (Lexapro) ondansetron 8 mg disintegrating 8 mg PO TID PRN Nausea And Vomiting 11/19/24 02/11/25 History tablet oxycodone 10 mg tablet 10 mg PO Q8 PRN Pain 11/19/24 02/11/25 History calcium carbonate (Calcium 500) 500 mg PO BID 12/05/24 02/11/25 History alprazolam 0.5 mg tablet (Xanax) 0.5 mg PO Q8H PRN Anxiety 12/12/24 02/11/25 History potassium chloride 20 mEq oral 20 meq PO DAILY #30 ea 12/13/24 02/11/25 Rx packet pantoprazole 40 mg tablet,delayed 40 mg PO BID #30 tabs 02/01/25 02/11/25 Rx release sucralfate 100 mg/mL oral 1 g (10 mL) PO QID #400 mL 02/01/25 02/11/25 Rx suspension Patient History Medical History Hematemesis Anemia Metastatic cancer Breast cancer metastasized to liver Hx of nausea Breast cancer metastasized to liver Most recent chemo 11/22/24 per [place] record Elevated liver enzymes History of anemia History of anxiety Hx of jaundice Cancer with mets to liver Hypocalcemia Hypokalemia History of cervical dysplasia History of pneumonia (04/2023) 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, ER/Pr+, Her 2 neg History of COVID-19 11/2021- "mild symptoms" > resolved Missed Hx Surgical History Port-A-Cath in place (11/11/23) Insertion of Access Port with Fluoroscopy Right Internal Jugular Vein Hx of bilateral oophorectomy (10/2023) History of ERCP 07/14/23, [facility] Hx laparoscopic cholecystectomy Robotic Laparoscopic Cholecystectomy: Grade 1 view, MAC#3, ETT 7.0 at [facility] History of dilatation and curettage S/p bilateral myringotomy with tube placement S/P tympanoplasty Right x2 History of low transverse section x2, with tubal ligation S/P wisdom tooth extraction S/P LEEP of cervix Family History Grandmother (Maternal) Breast cancer Aunt Breast cancer Grandfather Heart murmur Father Family history of reaction to anesthesia nausea/vomiting Other Twins, both liveborn Social History Smoking Status: Never smoker Tobacco Type: Cigarettes Second Hand Exposure: No; Do You Dip or Chew Tobacco: No; Hx Alcohol Use: No Hx Substance Use: Yes Last Used Substance: Days (ago) Substance Use Type Other:: edibles or topical Preferred Language: Kinyarwanda Communication Ability: Effective Visual Impairment: No Limitations Family Service Aide Required: No Beliefs That Will Affect Care: None marital status: marital status details: Austin Almendarez (36) [phone] Current Living Situation: Spouse Current Living Situation Comment: and two children 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 No signs of peritonitis Musculoskeletal: No calf tenderness Neurologic: Patient is able to move all 4 extremities and follow simple commands Psychiatric: Orientation: alert and oriented x 3 Affect: + flat affect Results & Data Vital Signs (Past 12 Hours) Vital Signs Temp Pulse Pulse Pulse Resp BP Pulse Ox 02/21/25 19:58 36.9 C 90 16 112/74 94 02/21/25 17:22 93 H 02/21/25 17:00 36.7 C 84 18 112/80 98 02/21/25 11:49 36.6 C 101 H 18 125/88 98 02/21/25 10:00 86 O2 Del Method 02/21/25 19:58 Room Air 02/21/25 17:22 02/21/25 17:00 Room Air 02/21/25 11:49 Room Air 02/21/25 10:00 PG Care Time/CCT Total # of Minutes Spent Total Time Spent with Patient: Total time spent is greater than 50% in coordination of care (as documented) at patient's floor/unit and/or counseling patient: Coding Level of Care Code 48384 IN/OBS CONSULT LVL 4,60M Diagnoses Vomiting R11.10
[2025-02-22 06:14] LABS: Anion Gap 4.0 (3-11); Blood Urea Nitrogen 16.0 mg/dl (6-23); Calcium 8.9 mg/dl (8.6-10.3); Carbon Dioxide 33.0 mmol/L (21-32); Chloride 103.0 mmol/L (98-107); Creatinine Clr Calc Pharmacy 170.5 ml/min; Glucose 87.0 mg/dl (70-99(Fasting)); Magnesium 1.6 mg/dl (1.7-2.4); Potassium 4.0 mmol/L (3.5-5.1); Sodium 140.0 mmol/L (136-145)
--- NOTE | 2025-02-22 09:46 | Palliative Care Progress Note ---
Date of Service February 22, 2025 Assessment & Plan (1) Refractory nausea and vomiting: Plan: Pt c/o intractable N/V for about six weeks - constant nausea that frequently worsens causing emesis, but the underlying nausea has been constant and refractory to medications for several weeks. She previously has had 4mg of zofran which offers no relief. She reports relief from rotating zofran and compazine previously for nausea after cancer treatments, but this time nothing worked so she came to hospital. She shared that her nausea is improved and she has been tolerating sips with only one small emesis overnight. Dr Sanchez discussed, with pt and her spouse, the results of CT showing gastric outlet obstruction as possible cause for N/V and pain and possible treatment options including continuing course of radiation, possible placement of venting Gtube, and possible transfer to [facility] for tertiary care vs discharge home on TPN for outpatient follow up. Patient requested Dr Sanchez reach out to Dr Quezada, Dr Zepeda, Dr Janiya Lynn ([facility]) and GI surgery to determine options for definitive treatment. Given pt's improved nausea overnight will attempt to transition off IV medications in preparation for discharge. Zofran changed to 8mg ODT q6hr PRN alternate zofran/compazine so one or other is given every three hours MIN until nausea relieved then PRN Compazine changed to 10mg PO q6hr MIN Continue Carafate, PPI, Pepcid, TPN (2) Palliative care by specialist: Plan: Palliative care will continue to follow for ongoing symptom mgmt and patient/family support. (3) Cancer related pain: Plan: Pt c/o chronic aching type pain in thoracic-lumbar spinal area that she relates to her metastatic cancer. She states that this pain bothers her less since admission and she attributes the reduction in pain to being mostly bed bound while hospitalized. She feels her back pain is much worse at home because she is caring for her young children. The back pain interferes with her living her life and performing iADLs for herself and her family. Although she does appear to be using her PRN morphine more frequently here, also contributing to her lower pain rating. She reports chronic abdominal pain; sharp/gnawing pains in RUQ that occasionally radiates posteriorly around flank. She continues to require frequent PRN morphine for pain, discussed with her the need to transition off IV morphine priro to discharge. We discussed planning for more consistent pain management with possible initiation of long acting opiate. Discussed that venting Gtube may also offer some relief. We discussed difficulty of taking frequent PO medications with venting Gtube and discussed use of duragesic patch for more consistent pain mgmt. Pt agreeable to duragesic. Given pt's OME (below) with dose reductions for cross tolerance, will start on 12mcg duragesic patch. Continue morphine PRN for BTP while during time required for steady state with transition to PO morphine for BTP as able. Pt agreeable to follow up with palliaitive care clinic on discharge for ongoing symptom mgmt. Last 24h hour OMEs: 50 (previous 24hr 60 OME) 4 mg morphine IV every 3hr 20 mgIV x2.5 = 50 OME ordered duragesic 12mcg 1 patch TD Q3D MIN (4) Lethargy: Plan: Pt more awake today with spouse at bedside. may be related to pain/antiemetic medications vs aggressively metastatic breast cancer with mets to brain. Dr. Sanchez discussed MRI brain to evaluate for progression of prior caudate mets noted on MRI brain (12/05/24), pt reports that she had planned for repeat MRI brain in [place] because she requires general anesthesia for MRIs due to her anxiety. She shared that her previous MRI was done at [facility] by Dr Janiya Lynn and she was intubated for it. Dr Sanchez to reach out to pt's oncology docs to discuss treatment options moving forward. Admission and Anticipated Discharge Date Admission Date: February 12, 2025 Subjective Assessed pt at bedside this morning, VIKASH. She shared that her nausea is marginally improved and she had only one small emesis overnight. NAD on RA. She states that her back and abd pain is well managed and the N/V remains her main complaint. Her spouse was at bedside. Review of Systems Review of Systems: All systems reviewed & are unremarkable except as noted in Subjective Physical Exam Constitutional: WD/WN, vitals as above Eyes: PERRL, conjunctivae normal, anicteric sclerae ENMT: Ears: no hearing impairment Neck: trachea midline, no thyromegaly Respiratory: normal respiratory effort, lungs clear to auscultation Cardiovascular: RRR, no murmur, no edema Gastrointestinal (Abdomen): normal bowel sounds, soft, nontender, no hepatosplenomegaly Skin: no rashes, warm and dry + pallor Psychiatric: A+Ox3, euthymic affect Lymphatic: no cervical or axillary lymphadenopathy Results & Data Vital Signs (Past 12 Hours) Vital Signs Temp Pulse Pulse Resp BP Pulse Ox O2 Del Method 02/22/25 07:32 36.5 C 100 H 18 123/84 99 Room Air 02/22/25 00:12 37.1 C 97 H 18 103/75 94 Room Air 02/21/25 22:00 98 H Laboratory Results Abnormal lab results 02/21/25 02/21/25 02/22/25 Range/Units 16:07 18:17 00:08 WBC (4.8-10.8) K/ul RBC (4.20-5.40) M/uL Hgb (12.0-16.0) g/dl Hct (37.0-47.0) % RDW Std Deviation (36.4-46.3) fL RDW Coeff of Ara (11.5-14.5) % Plt Count (130-400) K/uL Lymph # (Auto) (1.20-3.40) K/uL Immature Gran # (Auto) (0.01-0.20) K/uL Platelet Estimate (Normal) Carbon Dioxide (21-32) mmol/L Creatinine 0.37 L (0.6-1.2) mg/dl BUN/Creatinine Ratio 43.2 H (10-20) Glucose 136 H (70-99(Fasting)) mg/dl POC Glucose 145 H 109 H (70-99) mg/dl Magnesium (1.7-2.4) mg/dl AST (13-39) U/L Alkaline Phosphatase (34-104) U/L Total Protein (6.0-8.3) gm/dl Albumin (3.4-5.0) gm/dl 02/22/25 02/22/25 02/22/25 Range/Units 05:30 13:18 13:23 WBC 2.81 L (4.8-10.8) K/ul RBC 2.50 L (4.20-5.40) M/uL Hgb 7.3 L (12.0-16.0) g/dl Hct 22.6 L (37.0-47.0) % RDW Std Deviation 59.8 H (36.4-46.3) fL RDW Coeff of Ara 18.6 H (11.5-14.5) % Plt Count 7 L* (130-400) K/uL Lymph # (Auto) 0.14 L (1.20-3.40) K/uL Immature Gran # (Auto) 0.00 L (0.01-0.20) K/uL Platelet Estimate Signific. Decreased L (Normal) Carbon Dioxide 33 H (21-32) mmol/L Creatinine 0.43 L (0.6-1.2) mg/dl BUN/Creatinine Ratio 37.2 H (10-20) Glucose (70-99(Fasting)) mg/dl POC Glucose (70-99) mg/dl Magnesium 1.6 L (1.7-2.4) mg/dl AST 114 H (13-39) U/L Alkaline Phosphatase 114 H (34-104) U/L Total Protein 5.5 L (6.0-8.3) gm/dl Albumin 3.3 L (3.4-5.0) gm/dl Diagnostic Findings KUB X-Ray 02/21/25 15:43 2 views of the abdomen were obtained Findings: The bowel gas pattern appears unremarkable. No renal or ureteral calculi are seen. No foreign body is evident. No osseous abnormality is seen Impression: Unremarkable abdominal radiographs Electronically signed by Nikita Monique 02-21-2025 4:32 PM Abdomen/Pelvis CT 02/21/25 16:08 CT ABDOMEN and PELVIS with and without INTRAVENOUS CONTRAST HISTORY: Abdominal pain TECHNIQUE: CT abdomen and pelvis with and without contrast. IV CONTRAST: 100 mL of OMNIPAQUE 300 ENTERIC CONTRAST: Not Given COMPARISON: CT abdomen pelvis on 02/11/2025. FINDINGS: LOWER CHEST: Small left pleural fluid is again seen. Lobulated left breast malignancy is also again seen and partially visualized. LIVER: Diffuse hepatic metastases again seen yielding a pseudo- cirrhotic appearance. There is ill-defined density within the nas hepatis. Also some of the hepatic metastasis are not clearly from the wall of the distal stomach. The portal vein and the splenic vein are enlarged suggesting portal hypertension. GALLBLADDER/BILIARY: The gallbladder is not well-seen and may be surgically absent or underdistended. No abnormal biliary ductal dilatation has appreciated. SPLEEN: Splenomegaly. PANCREAS: Unremarkable. ADRENALS: Unremarkable. KIDNEYS: Unremarkable. No stones or hydronephrosis identified. PERITONEUM/RETROPERITONEUM. There are enlarged lymph nodes scattered throughout the mesentery, especially in the paracolic gutters. No aortic aneurysm. Small ascites, not significantly changed. GASTROINTESTINAL: No obstruction. Discussion of distal gastric body as above. There is a moderate distention of the gastric lumen proximally. Mild inflammatory changes of the small bowel loops in the large bowel demonstrate wall thickening. REPRODUCTIVE: No suspicious pelvic masses identified. URINARY BLADDER: Inflammatory changes with wall thickening. ABDOMINAL WALL: No significant hernia defect. BONES: No acute findings. Diffuse osseous metastases again seen. IMPRESSION: Redemonstrated heterogeneous left breast mass that is presumably the primary malignancy. Unchanged small left pleural fluid. Diffuse hepatic metastases are again seen. There may be an extracapsular extension of the metastatic disease into the nas hepatis where it appears to abut and possibly extend into the distal gastric body. Proximally the gastric lumen is moderately distended. Possible obstruction may be present secondary to the encroaching mass/metastatic process. If indicated, EGD evaluation may offer additional details. Remainder of the hollow viscus is not appreciably distended As before, mildly prominent mesenteric lymph nodes are seen scattered throughout the omentum, especially in the paracolic gutters. This may relate to the suspected enteritis and colitis picture although omental carcinomatosis is a less likely consideration as well. Also there is evidence of portal hypertension with extensive hepatic metastasis yielding a pseudo-cirrhotic appearance of the liver. The spleen is enlarged and the portal vein and the splenic vein are also enlarged. Given this, the apparent inflammatory changes of the hollow viscus could also be due to portal hypertensive enterocolopathy. Inflammatory changes of the urinary bladder may be due to cystitis Electronically signed by Ruslan Pacheco 02-21-2025 5:02 PM Medications Administered Current Inpatient Medications Al Hydrox/Mg Hydrox/Simethicone (Aluminum/Magnesium Susp 30 Ml Udc) 15 ml PO Q6H MIN Stop: 03/17/25 08:14 Last Admin: 02/22/25 14:20 Dose: 15 ml Alprazolam (Alprazolam 0.5 Mg Tablet) 0.5 mg PO Q8H PRN PRN Reason: Anxiety Stop: 03/14/25 02:50 Diphenoxylate HCl/Atropine (Diphenoxylate/Atropine 2.5/0.025mg Tab) 1 tab PO Q6H PRN PRN Reason: Diarrhea Stop: 03/14/25 02:50 Escitalopram Oxalate (Escitalopram Oxalate 10 Mg Tab) 10 mg PO HS MIN Stop: 03/14/25 20:59 Last Admin: 02/21/25 19:48 Dose: 10 mg Fentanyl (Fentanyl 12 Mcg/Hr Tdsy) 1 patch TD Q3D MIN Stop: 03/08/25 11:44 Last Admin: 02/22/25 12:14 Dose: 1 patch Gabapentin (Gabapentin 100 Mg Cap) 100 mg PO QAM MIN Stop: 03/22/25 08:59 Last Admin: 02/22/25 08:18 Dose: 100 mg Heparin Sodium (Porcine) (Heparin 100 Unit/Ml 5ml Flush) 5 ml FLUSH PRN PRN PRN Reason: Flush Stop: 03/14/25 06:49 Hyoscyamine (Hyoscyamine Sulfate 0.125 Mg Tab) 0.125 mg SL Q4H PRN PRN Reason: Cramping Stop: 03/16/25 09:22 Last Admin: 02/14/25 10:07 Dose: 0.125 mg Prochlorperazine 10 mg/ (Syringe) 10 mls @ 5 mls/min IV Q6H PRN PRN Reason: Nausea And Vomiting Stop: 03/17/25 07:37 Last Admin: 02/22/25 11:31 Dose: 5 mls/min Amino Acids/Dextrose 1,095 ml/ (Nutrition (Parenteral)) 1,095 mls @ 45.6 mls/hr IV .Q24H MIN; Protocol Stop: 02/22/25 15:59 Last Admin: 02/21/25 16:03 Dose: 45.6 mls/hr Amino Acids/Dextrose 1,100 ml/ (Nutrition (Parenteral)) 1,100 mls @ 45.8 mls/hr IV .Q24H MIN; Protocol Stop: 02/23/25 15:59 Fat Emulsion-[place] Oil/Soybean Oil (Clinolipid 20% Iv Fat Emulsion) 250 mls @ 20.8 mls/hr IV .Q12H2M MIN Stop: 02/23/25 04:01 Lorazepam (Lorazepam 2 Mg/1 Ml Vial) 0.5 mg IV Q8H PRN PRN Reason: Anxiety/Agitation Stop: 03/15/25 12:00 Last Admin: 02/22/25 08:29 Dose: 0.5 mg Melatonin (Melatonin 3 Mg Tab) 3 mg PO HS REPLACED BY [facility] Stop: 03/22/25 20:59 Last Admin: 02/21/25 19:33 Dose: Not Given Miscellaneous (Stop Clinolipid) 1 each N/A TODAY@04 REPLACED BY [facility] Stop: 03/20/25 03:59 Last Admin: 02/22/25 03:26 Dose: 1 each Miscellaneous (Fentanyl Patch Remove & Waste) 1 each N/A Q3D REPLACED BY [facility] Stop: 03/24/25 11:44 Last Admin: 02/22/25 12:36 Dose: Not Given Miscellaneous (Check Fentanyl Patch Placement) 1 each N/A QS REPLACED BY [facility] Stop: 03/24/25 15:59 Miscellaneous Information (Tpn/Ppn Consult Pharmacy) 1 each N/A UD PRN PRN Reason: Consult Stop: 03/18/25 09:00 Morphine Sulfate (Morphine Sulfate 2 Mg/Ml Carp) 2 mg IV Q3H PRN PRN Reason: Pain (1,2,3,4,5) & Pre PT Stop: 02/26/25 02:50 Last Admin: 02/22/25 12:14 Dose: 2 mg Morphine Sulfate (Morphine Sulfate 4 Mg/Ml 1 Ml Carp\Vial) 4 mg IV Q3H PRN PRN Reason: Pain (6,7,8,9,10) Stop: 02/26/25 02:50 Last Admin: 02/22/25 05:08 Dose: 4 mg Neomycin/Polymyxin/Bacitracin (Neomycin/Polymyx/Bacitr Oint 15 Gm Tube) 1 appln EXT Q48H PRN PRN Reason: Consult Stop: 03/21/25 16:11 Ondansetron HCl (Ondansetron 4 Mg Od Tab) 8 mg PO Q6H PRN PRN Reason: Nausea Stop: 03/24/25 11:27 Last Admin: 02/22/25 15:29 Dose: 8 mg Pantoprazole Sodium (Pantoprazole 40 Mg Tab) 40 mg PO BID REPLACED BY [facility] Stop: 03/21/25 20:59 Last Admin: 02/22/25 08:18 Dose: 40 mg Prochlorperazine (Prochlorperazine Maleate 10 Mg Tab) 10 mg PO Q6H REPLACED BY [facility] Stop: 03/24/25 11:29 Simethicone (Simethicone 80 Mg Chew) 160 mg PO Q6H MIN Stop: 03/19/25 17:29 Last Admin: 02/22/25 12:14 Dose: 160 mg Sucralfate (Sucralfate 1 Gm/10 Ml Udc) 1 gm PO ACHS PRN PRN Reason: GI Upset Stop: 03/14/25 11:29 Last Admin: 02/13/25 16:33 Dose: 1 gm Sucralfate (Sucralfate 1 Gm/10 Ml Udc) 1 gm PO QID REPLACED BY [facility] Stop: 03/15/25 19:14 Last Admin: 02/22/25 13:22 Dose: 1 gm PG Care Time/CCT Total # of Minutes Spent Total Time Spent with Patient: Total time spent is greater than 50% in coordination of care (as documented) at patient's floor/unit and/or counseling patient: Coding [place] [address] SUB INP/OBS CARE 3/50MIN Patient Type Established History Expanded Problem Focused Exam Expanded Problem Focused Medical Decision Making Moderate Complexity Diagnoses Refractory nausea and vomiting R11.2 Palliative care by specialist Z51.5 Cancer related pain G89.3 Lethargy R53.83
[2025-02-22] MEDS: MAGNESIUM SULFATE / D5W 1 GM/100 ML BAG IV ONE (10:07)
--- NOTE | 2025-02-22 11:07 | Hospitalist Progress Note ---
Date of Service February 22, 2025 Assessment & Plan (1) Vomiting: (2) Metastatic disease: Plan 34yo female with history of metastatic breast cancer (lesions to spine, lung, liver, brain) presenting with multiple episodes of vomiting with hematemesis prior to arrival. Patient has had hematemesis on several occasions necessitating hospital admission. 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 #Metastatic breast cancer / malignant gastric outlet obstruction / hematemesis / gastritis / chemotherapy induced neutropenia (now resolved) she set to begin radiation therapy treatment on 02/20/2025 -Typically gets 3 week rotations of chemotherapy with the first week consisting of the combination therapy, second week with monotherapy and third week free of medications - however questionable ongoing benefit of chemotherapy but patient planning on getting 2nd opinion at [facility] -Ongoing radiation most likely to help with hematemesis rather than gastric outlet obstruction but if improving will take weeks to months rather than days -Discussed possible venting g-tube with Dr Frausto however given possibility of other options at [facility] and this may inhibit other options (no surgical intervention recommended here) will discuss with [facility] for potential transfer, alternatively if she is stable enough with her nausea and vomiting on clear liquids she could be discharged on TPN (started 02/16) for outpatient follow up. So far this hasn't been the case but will attempt to switch her oral medications for possibility of this. [facility] hospital contacted - awaiting call back. -Continue Carafate, PPI, Pepcid, TPN #Thrombocytopenia Added INR and LFTs to assess for liver cause of this since neutropenia resolved but suspected to be secondary to bone marrow metastatic disease. No need for platelet transfusion unless bleeding recurs. #Cancer related pain Aiming towards discharge vs. transfer to tertiary [facility] therefore recommend transition to Fentanyl patch, morphine for breakthrough pain only Gabapentin added QAM from prior provider on 02/20 #Ingrown toenail s/p bedside procedure by podiatry on 02/17 #Anxiety -Lorazepam PO PRN -Continue Escitalopram #VTE Prophylaxis - SCDs and JAMES stockings #Disposition - continued admission on PCU Admission and Anticipated Discharge Date Admission Date: February 12, 2025 Subjective Discussed care with the patient and her independently and with palliative care. Ongoing nausea and vomiting even with minimal liquids (sips and chips) however does do much better on a reduced and liquid diet. Pain controlled on IV morphine, never previously been on Fentanyl patch Discussed care with Dr Quezada, Dr Zepeda and Dr Frausto and updated patient and her at bedside. Physical Exam Constitutional: WD/WN, vitals as above Respiratory: normal respiratory effort; no respiratory distress Cardiovascular: Rate/Rhythm: regular rate and regular rhythm Gastrointestinal (Abdomen): Inspection/Auscultation: abdomen normal to inspection; abdomen not distended Percussion/Palpation: + abdomen tender and abdomen soft Results & Data Results & Data Vital Signs (Past 12 Hours) Vital Signs Temp Pulse Pulse Resp BP Pulse Ox O2 Del Method 02/22/25 07:50 Room Air 02/22/25 07:32 36.5 C 100 H 18 123/84 99 Room Air 02/22/25 05:47 96 H 02/22/25 00:12 37.1 C 97 H 18 103/75 94 Room Air PG Care Time/CCT Total # of Minutes Spent Total Time Spent: 140 Total Time Spent with Patient: Total time spent is greater than 50% in coordination of care (as documented) at patient's floor/unit and/or counseling patient: Coding Level of Care Code 89816 SUB INP/OBS CARE 3/50MIN Diagnoses Vomiting R11.10 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
[2025-02-22] MEDS ORDERED: Nursing to Pharmacy Communication SCH (12:15)
--- NOTE | 2025-02-22 12:58 | Surgery Progress Note ---
Date of Service February 22, 2025 Assessment & Plan (1) Primary malignant neoplasm of left breast with metastasis to other site: Plan: Unfortunate 34-year-old female with widely metastatic breast cancer. Questionable gastric outlet obstruction secondary to tumor invasion/burden versus gastritis or radiation changes. At this point I think she would benefit from direct visualization with endoscopy. If there is truly gastric outlet obstruction, consideration of PEG tube for venting could be made, however it is difficult to tell whether this would relieve her symptoms. Also, if gastric obstruction is present and she needs enteral access, consideration for a jejunostomy tube could be made, however given her findings on CT, it is difficult to tell the degree of her portal hypertension and metastatic burden and how it would affect the surgery. Agree with GI consult, follow-up recommendations and upper endoscopy No surgical intervention indicated at this time She would likely benefit from continued involvement with palliative care, as well as consideration of transfer to a larger center for further treatment and evaluation Surgery will follow peripherally, call with questions or concerns Admission and Anticipated Discharge Date Admission Date: February 12, 2025 Subjective Patient known to me from prior port placement and cholecystectomy with widely metastatic breast cancer, surgery consulted for possible gastric outlet obstruction secondary to tumor invasion versus inflammation. She has been having on and off nausea vomiting along with hematemesis over the past several months. She did have an upper endoscopy in [place] that showed some ulcerations and was placed on Protonix. Physical Exam Constitutional: WD/WN, vitals as above Gastrointestinal (Abdomen): normal bowel sounds, soft, nontender, no hepatosplenomegaly Results & Data Vital Signs (Past 12 Hours) Vital Signs Temp Pulse Pulse Resp BP Pulse Ox O2 Del Method 02/22/25 11:39 36.7 C 96 H 16 111/71 97 Room Air 02/22/25 07:50 Room Air 02/22/25 07:32 36.5 C 100 H 18 123/84 99 Room Air 02/22/25 05:47 96 H Laboratory Results Laboratory Results - last 24 hr 02/21/25 02/21/25 02/22/25 16:07 18:17 00:08 Sodium 139 Potassium 4.1 Chloride 102 Carbon Dioxide 31 Anion Gap 6 BUN 16 Creatinine 0.37 L Est Cr Clr Drug Dosing 198.1 eGFR 133.96 BUN/Creatinine Ratio 43.2 H Glucose 136 H POC Glucose 145 H 109 H Calcium 9.0 Phosphorus Magnesium 1.8 02/22/25 05:30 Sodium 140 Potassium 4.0 Chloride 103 Carbon Dioxide 33 H Anion Gap 4 BUN 16 Creatinine 0.43 L Est Cr Clr Drug Dosing 170.5 eGFR 129.19 BUN/Creatinine Ratio 37.2 H Glucose 87 POC Glucose Calcium 8.9 Phosphorus 4.6 Magnesium 1.6 L Diagnostic Findings Personally reviewed and interpreted the CT scan from overnight and discussed it with Dr. Pat from radiology. There is obvious inflammation and thickening of the distal stomach, pylorus, and duodenum. Difficult to appreciate whether this is secondary to radiation changes, gastritis, external compression or invasion from tumor burden. No obvious obstruction. 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 KUB X-Ray 02/21/25 15:43 2 views of the abdomen were obtained Findings: The bowel gas pattern appears unremarkable. No renal or ureteral calculi are seen. No foreign body is evident. No osseous abnormality is seen Impression: Unremarkable abdominal radiographs Electronically signed by Nikita Monique 02-21-2025 4:32 PM Abdomen/Pelvis CT 02/21/25 16:08 CT ABDOMEN and PELVIS with and without INTRAVENOUS CONTRAST HISTORY: Abdominal pain TECHNIQUE: CT abdomen and pelvis with and without contrast. IV CONTRAST: 100 mL of OMNIPAQUE 300 ENTERIC CONTRAST: Not Given COMPARISON: CT abdomen pelvis on 02/11/2025. FINDINGS: LOWER CHEST: Small left pleural fluid is again seen. Lobulated left breast malignancy is also again seen and partially visualized. LIVER: Diffuse hepatic metastases again seen yielding a pseudo- cirrhotic appearance. There is ill-defined density within the nas hepatis. Also some of the hepatic metastasis are not clearly from the wall of the distal stomach. The portal vein and the splenic vein are enlarged suggesting portal hypertension. GALLBLADDER/BILIARY: The gallbladder is not well-seen and may be surgically absent or underdistended. No abnormal biliary ductal dilatation has appreciated. SPLEEN: Splenomegaly. PANCREAS: Unremarkable. ADRENALS: Unremarkable. KIDNEYS: Unremarkable. No stones or hydronephrosis identified. PERITONEUM/RETROPERITONEUM. There are enlarged lymph nodes scattered throughout the mesentery, especially in the paracolic gutters. No aortic aneurysm. Small ascites, not significantly changed. GASTROINTESTINAL: No obstruction. Discussion of distal gastric body as above. There is a moderate distention of the gastric lumen proximally. Mild inflammatory changes of the small bowel loops in the large bowel demonstrate wall thickening. REPRODUCTIVE: No suspicious pelvic masses identified. URINARY BLADDER: Inflammatory changes with wall thickening. ABDOMINAL WALL: No significant hernia defect. BONES: No acute findings. Diffuse osseous metastases again seen. IMPRESSION: Redemonstrated heterogeneous left breast mass that is presumably the primary malignancy. Unchanged small left pleural fluid. Diffuse hepatic metastases are again seen. There may be an extracapsular extension of the metastatic disease into the nas hepatis where it appears to abut and possibly extend into the distal gastric body. Proximally the gastric lumen is moderately distended. Possible obstruction may be present secondary to the encroaching mass/metastatic process. If indicated, EGD evaluation may offer additional details. Remainder of the hollow viscus is not appreciably distended As before, mildly prominent mesenteric lymph nodes are seen scattered throughout the omentum, especially in the paracolic gutters. This may relate to the suspected enteritis and colitis picture although omental carcinomatosis is a less likely consideration as well. Also there is evidence of portal hypertension with extensive hepatic metastasis yielding a pseudo-cirrhotic appearance of the liver. The spleen is enlarged and the portal vein and the splenic vein are also enlarged. Given this, the apparent inflammatory changes of the hollow viscus could also be due to portal hypertensive enterocolopathy. Inflammatory changes of the urinary bladder may be due to cystitis Electronically signed by Ruslan Pacheco 02-21-2025 5:02 PM PG Care Time/CCT Total # of Minutes Spent Total Time Spent with Patient: Total time spent is greater than 50% in coordination of care (as documented) at patient's floor/unit and/or counseling patient: Coding Level of Care Code 69633 SUB INP/OBS CARE 3/50MIN Diagnoses Primary malignant neoplasm of left breast with metastasis to other site C50.912
[2025-02-22 14:02] LABS: Hematocrit (blood only) 22.6 % (37.0-47.0); Hemoglobin 7.3 g/dl (12.0-16.0); Mean Corpuscular Hemoglobin 29.2 pg (25.0-34.0); Mean Corpuscular Volume 90.4 fL (80.0-100.0); Platelet Count 7 K/uL (130-400); RDW Standard Deviation 59.8 fL (36.4-46.3); Red Blood Count 2.50 M/uL (4.20-5.40); White Blood Count 2.81 K/ul (4.8-10.8)
[2025-02-22 14:03] LABS: Immature Granulocytes # (auto) 0.00 K/uL (0.01-0.20); Immature Granulocytes % (auto) 0.0 %; Tear Drop Cells 1+
[2025-02-22] MEDS: ONDANSETRON 4 MG OD TAB PO PRN (15:29)
[2025-02-22 15:30] LABS: INR 1.1 (0.9-1.1); Prothrombin Time 11.6 Seconds (9.0-12.0)
[2025-02-22 15:46] LABS: Alanine Aminotransferase 38.0 U/L (7-52); Albumin Level 3.3 gm/dl (3.4-5.0); Alkaline Phosphatase 114.0 U/L (34-104); Bilirubin,Total 0.8 mg/dl (0.2-1.0); Total Protein 5.5 gm/dl (6.0-8.3)
[2025-02-22] MEDS: CENTRAL TPN IV SCH (16:28)
[2025-02-22] MEDS: [UNRECOGNIZED DRUG - OTHER] IV SCH (16:28)
[2025-02-22] MEDS: CLINOLIPID 20% IV FAT EMULSION 250 ML IV SCH (16:29)
[2025-02-22] MEDS: PROCHLORPERAZINE MALEATE 10 MG TAB PO SCH (17:08)
[2025-02-22] MEDS: LORazepam 0.5 MG TAB PO PRN (19:30)
[2025-02-22] MEDS ORDERED: SODIUM CHLORIDE 0.9% 100 ML IV PRN ×2 (19:44→21:54)
[2025-02-22] MEDS: FAMOTIDINE 20 MG TAB PO SCH (20:06)
[2025-02-22] MEDS: diphenhydrAMINE 50 MG/ML VIAL IV STA (20:06)
[2025-02-23 06:42] LABS: Hematocrit (blood only) 26.8 % (37.0-47.0); Hemoglobin 8.8 g/dl (12.0-16.0); Mean Corpuscular Hemoglobin 29.4 pg (25.0-34.0); Mean Corpuscular Volume 89.6 fL (80.0-100.0); Platelet Count 12 K/uL (130-400); RDW Standard Deviation 55.4 fL (36.4-46.3); Red Blood Count 2.99 M/uL (4.20-5.40); White Blood Count 4.86 K/ul (4.8-10.8)
[2025-02-23 06:59] LABS: Anion Gap 7.0 (3-11); Blood Urea Nitrogen 16.0 mg/dl (6-23); Calcium 9.0 mg/dl (8.6-10.3); Carbon Dioxide 35.0 mmol/L (21-32); Chloride 101.0 mmol/L (98-107); Creatinine Clr Calc Pharmacy 208.9 ml/min; Glucose 131.0 mg/dl (70-99(Fasting)); Magnesium 1.9 mg/dl (1.7-2.4); Potassium 3.6 mmol/L (3.5-5.1); Sodium 143.0 mmol/L (136-145)
[2025-02-23] MEDS ORDERED: SODIUM CHLORIDE 0.9% 100 ML IV PRN ×2 (07:05→18:28)
[2025-02-23 07:31] LABS: Immature Granulocytes # (auto) 0.03 K/uL (0.01-0.20); Immature Granulocytes % (auto) 0.6 %; Ovalocytes 1+; Polychromasia 1+; Tear Drop Cells 2+
--- NOTE | 2025-02-23 11:43 | Palliative Care Progress Note ---
Date of Service February 23, 2025 Assessment & Plan (1) Refractory nausea and vomiting: Plan: Pt c/o intractable N/V for about six weeks - constant nausea that frequently worsens causing emesis, but the underlying nausea has been constant and refractory to medications for several weeks. She previously has had 4mg of zofran which offers no relief. She reports relief from rotating zofran and compazine previously for nausea after cancer treatments, but this time nothing worked so she came to hospital. She shared that her nausea had improved and she was tolerating sips after 24hr of RTC alternating zofran/compazine, but it has worsened again overnight. She is more alert today, despite not having slept well last night. We discussed adding Zyprexa for better mgmt of nausea, pt in agreement and states that she has previously gotten relief with 10mg zyprexa prn. Pt is hopeful for better symptom management to allow for transfer to [facility] for tertiary care vs discharge home on TPN for outpatient follow up with [facility]. Dr Sanchez and CM working on transportation / transfer arrangements. Added Zyprexa 10mg ODT q12h PRN for refractory nausea Continue Zofran 8mg ODT q6hr PRN alternate zofran/compazine so one or other is given every three hours MIN until nausea relieved then PRN Continue Compazine 10mg PO q6hr MIN Continue Carafate, PPI, Pepcid, TPN (2) Palliative care by specialist: Plan: Met with pt at bedside, no visitors present. Ophelia stated that she has been having trouble sleeping because of N/V, but also because she is so worried about the future. She shared that she has been very concerned with leaving a legacy and being sure that her children remember her. She shared concern that going to [facility] might affect her ability to do thi s and she is trying to figure out how to best manage it all. She shared that she hopes that she can be around for them for at least another 10 years so that they have a firm memory of her. She shared that she has had nightmares that she has mets throughout her brain and this has her worried that she needs to do more for her family while she is still able. I asked if she has considered the possibility that she does not have 10yrs, and what things she might focus on if her time were shorter. She shared that her priority is to live long enough to fix her children's minds with a firm memory of her. We discussed how she has been preparing her children and she shared that they are planting trevizo and doing things together. Empathy provided and offered support of pt's efforts to provide legacy items for her family while feeling so ill. Discussed engaging palliative foundation funded Conscious Dying Coaching with Rev Martha Morales. I reviewed that Rev Morales offers assistance on non clinical issues, supporting patients as they consider, navigate and become clear on what is most important for their end of life. Rev Morales helps patients align how they are currently living with the vision they see for yourself at the end, then identify and set goals, along with action steps for yourself to fulfill that vision. The focus is on the 5 domains of life: Spiritual, emotional, physical, mental, and practical. Ophelia shared that she has been researching a free lance model online and would consider engagement with Rev Morales and I have provided pt with Rev Morales's contact information. Reviewed that End of life coaching and planning begins with 10 structured sessions we like to call, the best three months. Based on 10 total meetings over a 3-4 month period. Average meeting time 60-90 minute s. 2 meetings per domain. Over a three month period, there is support for the family and patient to identify their vision, current reality and steps to be taken to implement life fulfillment and care wishes in the spiritual, emotional, mental, physical and practical domains of life. This service includes: Best Three Months End-of-Life Care Coaching and Planning with Family, Patient and Co-coordination with Medical/Hospice Care Providers. Ophelia then shared that she is really trying her best to stay positive and asked that we shift conversation to more positive subjects. Transport arrived to take pt to radiation prompting end of discussion. Palliative care will continue to follow for ongoing symptom mgmt and patient/family support. (3) Cancer related pain: Plan: Pt c/o chronic aching type pain in thoracic-lumbar spinal area as well as chronic abdominal pain (sharp/gnawing pains in RUQ - occasionally radiates posteriorly around flank) that she relates to her metastatic cancer. She states that this pain bothers her less since admission and she attributes the reduction in pain to being mostly bed bound while hospitalized. She feels her back pain is much worse at home because she is caring for her young children. The back pain interferes with her living her life and performing iADLs for herself and her family. Although she does appear to be using her PRN morphine more frequently here, also contributing to her lower pain rating. She continues to require frequent PRN morphine for pain, but states that her pain may be slightly improved. She shared that the constant nausea is more bothersome than her pain, but pain persists. Again discussed that venting Gtube may also offer some relief. Pt started on duragesic patch yesterday afternoon, with modest decrease in PRN morphine use for BTP. Will reassess PRN use tomorrow and adjust duragesic dosing accordingly. (4) Lethargy: Plan: improving Plan as above Admission and Anticipated Discharge Date Admission Date: February 12, 2025 Subjective Met with pt at bedside, no visitors present. Pt was sitting upright in bed, shared that she did not get any sleep at all due to ongoing N/V. She shared that she is feeling "ok" at the moment, but nausea and pain kept her awake. NAD on RA. Review of Systems Review of Systems: pt c/o ongoing N/V and abd pain as described below. Physical Exam Constitutional: WD/WN, vitals as above Eyes: PERRL, conjunctivae normal, anicteric sclerae Neck: trachea midline, no thyromegaly Respiratory: normal respiratory effort, lungs clear to auscultation Cardiovascular: RRR, no murmur, no edema Gastrointestinal (Abdomen): normal bowel sounds, soft, nontender, no hepatosplenomegaly Skin: no rashes, warm and dry + pallor Psychiatric: A+Ox3, euthymic affect Lymphatic: no cervical or axillary lymphadenopathy Results & Data Vital Signs (Past 12 Hours) Vital Signs Temp Pulse Pulse Resp BP BP Pulse Ox 02/23/25 09:48 36.6 C 88 14 105/62 96 02/23/25 08:19 36.6 C 93 H 16 114/68 98 02/23/25 08:19 36.8 C 95 H 16 120/94 99 02/23/25 07:55 36.3 C L 83 16 117/92 99 02/23/25 02:48 36.6 C 90 18 102/65 02/23/25 02:40 36.6 C 92 H 18 102/65 96 02/23/25 01:40 36.6 C 92 H 18 104/72 96 02/23/25 01:10 36.6 C 90 18 104/72 96 02/23/25 00:53 36.6 C 90 18 111/68 96 02/23/25 00:40 36.6 C 90 18 119/83 96 02/23/25 00:17 36.6 C 90 18 113/78 96 02/23/25 00:00 36.6 C 89 18 113/79 96 O2 Del Method 02/23/25 09:48 02/23/25 08:19 02/23/25 08:19 02/23/25 07:55 02/23/25 02:48 Room Air 02/23/25 02:40 02/23/25 01:40 02/23/25 01:10 02/23/25 00:53 02/23/25 00:40 02/23/25 00:17 02/23/25 00:00 Laboratory Results Abnormal lab results 02/22/25 02/22/25 02/22/25 Range/Units 13:23 18:29 20:10 RBC (4.20-5.40) M/uL Hgb (12.0-16.0) g/dl Hct (37.0-47.0) % RDW Std Deviation (36.4-46.3) fL RDW Coeff of Ara (11.5-14.5) % Plt Count (130-400) K/uL Lymph # (Auto) (1.20-3.40) K/uL [place] # (Auto) (0.11-0.59) K/uL Carbon Dioxide (21-32) mmol/L Creatinine (0.6-1.2) mg/dl BUN/Creatinine Ratio (10-20) Glucose (70-99(Fasting)) mg/dl POC Glucose 114 H (70-99) mg/dl Phosphorus (2.5-4.9) mg/dl AST 114 H (13-39) U/L Alkaline Phosphatase 114 H (34-104) U/L Total Protein 5.5 L (6.0-8.3) gm/dl Albumin 3.3 L (3.4-5.0) gm/dl Crossmatch See Detail 02/23/25 02/23/25 Range/Units 06:12 11:53 RBC 2.99 L (4.20-5.40) M/uL Hgb 8.8 L (12.0-16.0) g/dl Hct 26.8 L (37.0-47.0) % RDW Std Deviation 55.4 H (36.4-46.3) fL RDW Coeff of Ara 17.5 H (11.5-14.5) % Plt Count 12 L* D (130-400) K/uL Lymph # (Auto) 0.16 L (1.20-3.40) K/uL [place] # (Auto) 0.68 H (0.11-0.59) K/uL Carbon Dioxide 35 H (21-32) mmol/L Creatinine 0.35 L (0.6-1.2) mg/dl BUN/Creatinine Ratio 45.7 H (10-20) Glucose 131 H (70-99(Fasting)) mg/dl POC Glucose 107 H (70-99) mg/dl Phosphorus 5.1 H (2.5-4.9) mg/dl AST (13-39) U/L Alkaline Phosphatase (34-104) U/L Total Protein (6.0-8.3) gm/dl Albumin (3.4-5.0) gm/dl Crossmatch Diagnostic Findings KUB X-Ray 02/21/25 15:43 2 views of the abdomen were obtained Findings: The bowel gas pattern appears unremarkable. No renal or ureteral calculi are seen. No foreign body is evident. No osseous abnormality is seen Impression: Unremarkable abdominal radiographs Electronically signed by Nikita Monique 02-21-2025 4:32 PM Abdomen/Pelvis CT 02/21/25 16:08 CT ABDOMEN and PELVIS with and without INTRAVENOUS CONTRAST HISTORY: Abdominal pain TECHNIQUE: CT abdomen and pelvis with and without contrast. IV CONTRAST: 100 mL of OMNIPAQUE 300 ENTERIC CONTRAST: Not Given COMPARISON: CT abdomen pelvis on 02/11/2025. FINDINGS: LOWER CHEST: Small left pleural fluid is again seen. Lobulated left breast malignancy is also again seen and partially visualized. LIVER: Diffuse hepatic metastases again seen yielding a pseudo- cirrhotic appearance. There is ill-defined density within the nas hepatis. Also some of the hepatic metastasis are not clearly from the wall of the distal stomach. The portal vein and the splenic vein are enlarged suggesting portal hypertension. GALLBLADDER/BILIARY: The gallbladder is not well-seen and may be surgically absent or underdistended. No abnormal biliary ductal dilatation has appreciated. SPLEEN: Splenomegaly. PANCREAS: Unremarkable. ADRENALS: Unremarkable. KIDNEYS: Unremarkable. No stones or hydronephrosis identified. PERITONEUM/RETROPERITONEUM. There are enlarged lymph nodes scattered throughout the mesentery, especially in the paracolic gutters. No aortic aneurysm. Small ascites, not significantly changed. GASTROINTESTINAL: No obstruction. Discussion of distal gastric body as above. There is a moderate distention of the gastric lumen proximally. Mild inflammatory changes of the small bowel loops in the large bowel demonstrate wall thickening. REPRODUCTIVE: No suspicious pelvic masses identified. URINARY BLADDER: Inflammatory changes with wall thickening. ABDOMINAL WALL: No significant hernia defect. BONES: No acute findings. Diffuse osseous metastases again seen. IMPRESSION: Redemonstrated heterogeneous left breast mass that is presumably the primary malignancy. Unchanged small left pleural fluid. Diffuse hepatic metastases are again seen. There may be an extracapsular extension of the metastatic disease into the nas hepatis where it appears to abut and possibly extend into the distal gastric body. Proximally the gastric lumen is moderately distended. Possible obstruction may be present secondary to the encroaching mass/metastatic process. If indicated, EGD evaluation may offer additional details. Remainder of the hollow viscus is not appreciably distended As before, mildly prominent mesenteric lymph nodes are seen scattered throughout the omentum, especially in the paracolic gutters. This may relate to the suspected enteritis and colitis picture although omental carcinomatosis is a less likely consideration as well. Also there is evidence of portal hypertension with extensive hepatic metastasis yielding a pseudo-cirrhotic appearance of the liver. The spleen is enlarged and the portal vein and the splenic vein are also enlarged. Given this, the apparent inflammatory changes of the hollow viscus could also be due to portal hypertensive enterocolopathy. Inflammatory changes of the urinary bladder may be due to cystitis Electronically signed by Ruslan Pacheco 02-21-2025 5:02 PM Medications Administered Current Inpatient Medications Al Hydrox/Mg Hydrox/Simethicone (Aluminum/Magnesium Susp 30 Ml Udc) 15 ml PO Q6H MIN Stop: 03/17/25 08:14 Last Admin: 02/23/25 14:02 Dose: 15 ml Diphenoxylate HCl/Atropine (Diphenoxylate/Atropine 2.5/0.025mg Tab) 1 tab PO Q6H PRN PRN Reason: Diarrhea Stop: 03/14/25 02:50 Escitalopram Oxalate (Escitalopram Oxalate 10 Mg Tab) 10 mg PO HS [facility] Stop: 03/14/25 20:59 Last Admin: 02/22/25 20:07 Dose: 10 mg Famotidine (Famotidine 20 Mg Tab) 20 mg PO BID [facility] Stop: 03/24/25 20:59 Last Admin: 02/23/25 10:19 Dose: 20 mg Fentanyl (Fentanyl 12 Mcg/Hr Tdsy) 1 patch TD Q3D [facility] Stop: 03/08/25 11:44 Last Admin: 02/22/25 12:14 Dose: 1 patch Gabapentin (Gabapentin 100 Mg Cap) 100 mg PO QAM [facility] Stop: 03/22/25 08:59 Last Admin: 02/23/25 10:18 Dose: 100 mg Heparin Sodium (Porcine) (Heparin 100 Unit/Ml 5ml Flush) 5 ml FLUSH PRN PRN PRN Reason: Flush Stop: 03/14/25 06:49 Hyoscyamine (Hyoscyamine Sulfate 0.125 Mg Tab) 0.125 mg SL Q4H PRN PRN Reason: Cramping Stop: 03/16/25 09:22 Last Admin: 02/14/25 10:07 Dose: 0.125 mg Prochlorperazine 10 mg/ (Syringe) 10 mls @ 5 mls/min IV Q6H PRN PRN Reason: Nausea And Vomiting Stop: 03/17/25 07:37 Last Admin: 02/22/25 11:31 Dose: 5 mls/min Amino Acids/Dextrose 1,100 ml/ (Nutrition (Parenteral)) 1,100 mls @ 45.8 mls/hr IV .Q24H MIN; Protocol Stop: 02/23/25 15:59 Last Infusion: 02/23/25 02:50 Dose: 45.8 mls/hr Sodium Chloride (Nss) 100 mls @ 15 mls/hr IV .Q6H40M PRN PRN Reason: For Transfusion Duration Stop: 02/23/25 15:05 Amino Acids/Dextrose 1,094 ml/ (Nutrition (Parenteral)) 1,094 mls @ 45.6 mls/hr IV .Q24H [facility]; Protocol Stop: 02/24/25 15:59 Fat Emulsion-Ambler Oil/Soybean Oil (Clinolipid 20% Iv Fat Emulsion) 250 mls @ 20.833 mls/hr IV .Q12H [facility] Stop: 02/24/25 03:59 Lorazepam (Lorazepam 0.5 Mg Tab) 0.5 mg PO Q8H PRN PRN Reason: Anxiety Stop: 03/24/25 13:25 Last Admin: 02/23/25 08:22 Dose: 0.5 mg Lorazepam (Lorazepam 2 Mg/1 Ml Vial) 0.5 mg IV Q8H PRN PRN Reason: Anxiety/Agitation Stop: 03/24/25 19:45 Melatonin (Melatonin 3 Mg Tab) 3 mg PO HS [facility] Stop: 03/22/25 20:59 Last Admin: 02/22/25 20:06 Dose: Not Given Miscellaneous (Stop Clinolipid) 1 each N/A TODAY@04 [facility] Stop: 03/20/25 03:59 Last Admin: 02/23/25 04:20 Dose: 1 each Miscellaneous (Fentanyl Patch Remove & Waste) 1 each N/A Q3D [facility] Stop: 03/24/25 11:44 Last Admin: 02/22/25 12:36 Dose: Not Given Miscellaneous (Check Fentanyl Patch Placement) 1 each N/A QS [facility] Stop: 03/24/25 15:59 Last Admin: 02/23/25 07:52 Dose: 1 each Miscellaneous Information (Tpn/Ppn Consult Pharmacy) 1 each N/A UD PRN PRN Reason: Consult Stop: 03/18/25 09:00 Morphine Sulfate (Morphine Sulfate 2 Mg/Ml Carp) 2 mg IV Q3H PRN PRN Reason: Pain (1,2,3,4,5) & Pre PT Stop: 02/26/25 02:50 Last Admin: 02/23/25 11:45 Dose: 2 mg Morphine Sulfate (Morphine Sulfate 4 Mg/Ml 1 Ml Carp\\Vial) 4 mg IV Q3H PRN PRN Reason: Pain (6,7,8,9,10) Stop: 02/26/25 02:50 Last Admin: 02/23/25 07:51 Dose: 4 mg Neomycin/Polymyxin/Bacitracin (Neomycin/Polymyx/Bacitr Oint 15 Gm Tube) 1 appln EXT Q48H PRN PRN Reason: Consult Stop: 03/21/25 16:11 Olanzapine (Olanzapine Zydis 10 Mg Orally Dis. Tab) 10 mg PO Q12H PRN PRN Reason: nausea Stop: 03/25/25 11:43 Ondansetron HCl (Ondansetron 4 Mg Od Tab) 8 mg PO Q6H PRN PRN Reason: Nausea Stop: 03/24/25 11:27 Last Admin: 02/23/25 12:50 Dose: 8 mg Pantoprazole Sodium (Pantoprazole 40 Mg Tab) 40 mg PO BID [facility] Stop: 03/21/25 20:59 Last Admin: 02/23/25 10:16 Dose: 40 mg Prochlorperazine (Prochlorperazine Maleate 10 Mg Tab) 10 mg PO Q6H [facility] Stop: 03/24/25 11:29 Last Admin: 02/23/25 11:46 Dose: 10 mg Simethicone (Simethicone 80 Mg Chew) 160 mg PO Q6H [facility] Stop: 03/19/25 17:29 Last Admin: 02/23/25 11:45 Dose: 160 mg Sucralfate (Sucralfate 1 Gm/10 Ml Udc) 1 gm PO ACHS PRN PRN Reason: GI Upset Stop: 03/14/25 11:29 Last Admin: 02/13/25 16:33 Dose: 1 gm Sucralfate (Sucralfate 1 Gm/10 Ml Udc) 1 gm PO QID [facility] Stop: 03/15/25 19:14 Last Admin: 02/23/25 12:53 Dose: 1 gm PG Care Time/CCT Total # of Minutes Spent Total Time Spent with Patient: Total time spent is greater than 50% in coordination of care (as documented) at patient's floor/unit and/or counseling patient: [place] [address] SUB INP/OBS CARE 3/50MIN Patient Type Established History Expanded Problem Focused Exam Expanded Problem Focused Medical Decision Making Moderate Complexity Diagnoses Refractory nausea and vomiting R11.2 Palliative care by specialist Z51.5 Cancer related pain G89.3 Lethargy R53.83
--- NOTE | 2025-02-23 11:46 | Hospitalist Progress Note ---
Date of Service February 23, 2025 Assessment & Plan (1) Vomiting: (2) Metastatic disease: Plan 34yo female with history of metastatic breast cancer (lesions to spine, lung, liver, brain) presenting with multiple episodes of vomiting with hematemesis prior to arrival. Patient has had hematemesis on several occasions necessitating hospital admission. 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 / hematemesis / gastritis / chemotherapy induced neutropenia (now resolved) she set to begin radiation therapy treatment on 02/20/2025 -Typically gets 3 week rotations of chemotherapy with the first week consisting of the combination therapy, second week with monotherapy and third week free of medications - however questionable ongoing benefit of chemotherapy but patient planning on getting 2nd opinion at [facility] -Ongoing radiation most likely to help with hematemesis rather than gastric outlet obstruction but if improving will take weeks to months rather than days -Discussed NG tube +/- venting g-tube with the patient however with her thrombocytopenia risk currently outweighs benefit; willing to accept ongoing nausea and vomiting prior to hospitalization in [place] -Again discussed hospice care may give her the maximal amount of time with her children but she understandably wishes to exhaust all possibilities with her oncologist in [place] prior to switching to this. -Discussed with her oncologist Dr Mack 02/22 and once transportation has been arranged she can go to the ER at [facility] in [place] if unable to arrange transport to direct inpatient admission -Continue Carafate, PPI, Pepcid, TPN #Anemia Secondary to hematemesis, planning to optimize for travelling to [place] therefore transfused 1 unit last night and Hgb stable 8.8 today #Thrombocytopenia INR normal. Given risk of hematemesis restarting and planning on travelling to [place] plan to transfuse platelets with goal > 20. #Cancer related pain Started Fentanyl patch from palliative care 02/22 Gabapentin added QAM from prior provider on 02/20 #Ingrown toenail s/p bedside procedure by podiatry on 02/17 #Anxiety -Lorazepam PO PRN -Continue Escitalopram #VTE Prophylaxis - SCDs and JAMES stockings, encourage ambulation #Disposition - continued admission on PCU until transportation can be arranged to [facility] hospital Admission and Anticipated Discharge Date Admission Date: February 12, 2025 Subjective Ongoing nausea and vomiting overnight. Discussed NG tube however since we are making her medically stable for transport to another facility rather than discharge and risk of bleeding with her platelets so low. Ongoing significant morphine use despite Fentanyl patch started. Physical Exam Constitutional: WD/WN, vitals as above Respiratory: normal respiratory effort; no respiratory distress Cardiovascular: Rate/Rhythm: regular rate and regular rhythm Gastrointestinal (Abdomen): Inspection/Auscultation: abdomen normal to inspection; abdomen not distended Percussion/Palpation: + abdomen tender and abdomen soft Results & Data Results & Data Vital Signs (Past 12 Hours) Vital Signs Temp Pulse Pulse Resp BP BP Pulse Ox 02/23/25 09:48 36.6 C 88 14 105/62 96 02/23/25 08:19 36.6 C 93 H 16 114/68 98 02/23/25 08:19 36.8 C 95 H 16 120/94 99 02/23/25 07:55 36.3 C L 83 16 117/92 99 02/23/25 02:48 36.6 C 90 18 102/65 02/23/25 02:40 36.6 C 92 H 18 102/65 96 02/23/25 01:40 36.6 C 92 H 18 104/72 96 02/23/25 01:10 36.6 C 90 18 104/72 96 02/23/25 00:53 36.6 C 90 18 111/68 96 02/23/25 00:40 36.6 C 90 18 119/83 96 02/23/25 00:17 36.6 C 90 18 113/78 96 02/23/25 00:00 36.6 C 89 18 113/79 96 O2 Del Method 02/23/25 09:48 02/23/25 08:19 02/23/25 08:19 02/23/25 07:55 02/23/25 02:48 Room Air 02/23/25 02:40 02/23/25 01:40 02/23/25 01:10 02/23/25 00:53 02/23/25 00:40 02/23/25 00:17 02/23/25 00:00 PG Care Time/CCT Total # of Minutes Spent Total Time Spent: 60 Total Time Spent with Patient: Total time spent is greater than 50% in coordination of care (as documented) at patient's floor/unit and/or counseling patient: Coding Level of Care Code 98050 SUB INP/OBS CARE 50MIN Diagnoses Vomiting R11.10 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
[2025-02-23] MEDS: [UNRECOGNIZED DRUG - OTHER] IV SCH (16:27)
[2025-02-23] MEDS: CENTRAL TPN IV SCH (16:27)
[2025-02-23] MEDS: CLINOLIPID 20% IV FAT EMULSION 250 ML IV SCH (16:28)
[2025-02-23 18:21] LABS: Hematocrit (blood only) 25.4 % (37.0-47.0); Hemoglobin 8.6 g/dl (12.0-16.0); Mean Corpuscular Hemoglobin 30.6 pg (25.0-34.0); Mean Corpuscular Volume 90.4 fL (80.0-100.0); Platelet Count 16 K/uL (130-400); RDW Standard Deviation 57.6 fL (36.4-46.3); Red Blood Count 2.81 M/uL (4.20-5.40); White Blood Count 4.60 K/ul (4.8-10.8)
[2025-02-23 18:33] LABS: Immature Granulocytes # (auto) 0.03 K/uL (0.01-0.20); Immature Granulocytes % (auto) 0.7 %
[2025-02-23] MEDS: SODIUM CHLORIDE 0.9% 100 ML IV PRN (18:43)
[2025-02-23] MEDS: diphenhydrAMINE 50 MG/ML VIAL IV PRN (20:09)
[2025-02-23] MEDS: FAMOTIDINE 20MG IV PUSH 20 MG/5 ML SYR IV SCH (20:23)
--- NOTE | 2025-02-23 20:43 | Advance Care Plan Prog Note ---
Advanced Care Planning Note Date of Discussion February 23, 2025 ACP Discussion Diagnoses requiring ACP discussion: Metastatic breast cancer with gastric outlet obstruction, hematemesis and thrombocytopenia A [id number] discussion with the patient and over the phone regarding the patient's advanced care planning took place during this hospitalization on the above date. The discussion included the explanation and discussion of advance directives and associated forms/documents, as well as the patient's current code status. We also discussed at length the patient's medical conditions (both acute and chronic), general prognosis, treatment options, and goals of care. The following summarizes the discussion: Continue blood and platelet transfusions as needed for now. DNR. Planning further discussion regarding possible discharge on hospice tomorrow. Advance Care Planning/Goals of Care Will attempt to fill out an AD and/or POLST with the pt prior to d/c, Will continue to support the patient/family and Will continue to discuss both short- and long-term goals of care DPOA-HC/Surrogate Decision Maker Status Resuscitation Status DNR/DNI No Resuscitation Total Time I spent a total of 30 minutes was spent on this discussion, including counseling, answering questions, and completing, if any, pertinent advanced care planning forms/documents.
--- NOTE | 2025-02-23 20:52 | Communication Note ---
Date of Service: February 23, [address] Lynn. Earlier in day reportedly discussed with Dr Zepeda with patient and and collective decision that travelling to [place] would not offer any benefit and risk of being away from family. Additionally I discussed with Dr Lynn regarding possibility of surgical jejunostomy at his institution and he does not see this as a viable option for her. If platelets improve could possibly place NG tube and subsequent venting g-tube if NG successful to help with her nausea vomiting - discussed with Dr Frausto; not an option while plt < 50 but advised he will discuss with patient tomorrow. Originally had arranged for Air ambulance to take her to [place] but informed case management to cancel this in light of new information. Patient vomited additional clot of blood with normal brown vomit around 5pm. 1 unit packed RBCs ordered for acute hemorrhage with CBC. Fortunately hemoglobin currently stable therefore only plan on repeating CBC in AM unless further hematemesis overnight. Plt still < 20 therefore additional platelet transfusion ordered. Changed diet to NPO - ok to sip and spit Gatorade. Possibly hematemesis started again as not absorbing PO meds therefore switch back to famotidine IV and pantoprazole IV bolus and drip. Plan to further discuss goal of getting home likely on hospice with patient and her tomorrow. If platelets do not improve there isn't anything significant that can be done for her nausea and vomiting.
[2025-02-23] MEDS: PANTOprazole 40 MG in DEXTROSE 5% MINI-B 100 ML IV SCH (22:16)
[2025-02-24 06:37] LABS: Alanine Aminotransferase 34.0 U/L (7-52); Alkaline Phosphatase 87.0 U/L (34-104); Anion Gap 5.0 (3-11); Bilirubin,Total 1.3 mg/dl (0.2-1.0); Blood Urea Nitrogen 19.0 mg/dl (6-23); Calcium 8.7 mg/dl (8.6-10.3); Carbon Dioxide 33.0 mmol/L (21-32); Chloride 104.0 mmol/L (98-107); Creatinine Clr Calc Pharmacy 201.0 ml/min; Glucose 110.0 mg/dl (70-99(Fasting)); Magnesium 1.9 mg/dl (1.7-2.4); Potassium 3.0 mmol/L (3.5-5.1); Sodium 142.0 mmol/L (136-145)
[2025-02-24 06:44] LABS: Hematocrit (blood only) 23.4 % (37.0-47.0); Hemoglobin 7.7 g/dl (12.0-16.0); Immature Granulocytes # (auto) 0.01 K/uL (0.01-0.20); Immature Granulocytes % (auto) 0.3 %; Mean Corpuscular Hemoglobin 29.3 pg (25.0-34.0); Mean Corpuscular Volume 89.0 fL (80.0-100.0); Platelet Count 12 K/uL (130-400); Polychromasia 1+; RDW Standard Deviation 53.1 fL (36.4-46.3); Red Blood Count 2.63 M/uL (4.20-5.40); Tear Drop Cells 1+; White Blood Count 3.13 K/ul (4.8-10.8)
[2025-02-24] MEDS: POTASSIUM CHLORIDE / WTR 10 MEQ/100 ML PLCT IV SCH (09:21)
[2025-02-24] MEDS: PANTOprazole 40 MG/10 ML SYR IV SCH (09:27)
--- NOTE | 2025-02-24 10:37 | Palliative Care Progress Note ---
Date of Service February 24, 2025 Assessment & Plan (1) Refractory nausea and vomiting: Plan: Pt c/o intractable N/V for about six weeks - constant nausea that frequently worsens causing emesis, but the underlying nausea has been constant and refractory to medications for several weeks. She previously has had 4mg of zofran which offers no relief. She reports relief from rotating zofran and compazine previously for nausea after cancer treatments, but this time nothing worked so she came to hospital. She shared that her nausea had improved and she was tolerating sips after 24hr of RTC alternating zofran/compazine, but it has worsened and Zyprexa was added yesterday for better mgmt of nausea. Pt shared improved nausea with addition of zyprexa. Will begin to transition off IV medications over weekend in preparation for discharge to home. Continue Zyprexa 10mg ODT q12h PRN for refractory nausea Continue Zofran 8mg ODT q6hr PRN alternate zofran/compazine so one or other is given every three hours MIN until nausea relieved then PRN Continue Compazine 10mg PO q6hr MIN Continue Carafate, PPI, Pepcid, TPN (2) Palliative care by specialist: Plan: Met with pt at bedside, spouse at bedside. Met with them from 08:00 - 08:40 to discuss GOC. Pt shared that she and Austin were told last evening that there are no further treatment options for her cancer aside from palliative radiation for symptom mgmt. Pt states that she is adjusting to this news and that they are still processing the idea that [facility] cannot offer any additional therapy. Austin and Ophelia both express desire to get home, but concern for her ongoing N/V and lethargy. They expressed concern about how she might be able to manage with two very active toddlers, age 3 and 5y at home. They expressed concern for how to best prepare the children for her . Ophelia shared fear that her children may be scarred by seeing her and is struggling to decide where she would most like to be when the time comes. She clearly wants to be home while she still has quality of life if able to manage her symptoms. She shared that she worries about her children being traumatized if she dies at home, and also worries that they might be afraid of hospitals for life if she dies in the hospital. We discussed [facility] program and community resources available to assist in preparing for and helping the children cope with her . Pt questioned if there are any local inpatient hospice units, expressing concern that her children may have a traumatizing experience if she were to at home. Discussed hospice benefit: an interdisciplinary program offered by nurses, nurses aides, social workers, chaplains and a medical interpreter for patients with a terminal condition and a life expectancy of less than 6 months. This is covered by Medicare at 100%/no out of pocket expense to patient and all meds/supplies needed by patient for the reason they are on hospice are paid for/covered by hospice. The goal is assure quality of life of the patient in their home setting (home, half-way, inpatient hospice setting) by providing symptoms management, psychosocial and spiritual support. However, they cannot offer 24 hours care and if the family is unable to provide that care, they will have to consider personal care with out of pocket cost vs. half-way placement. We discussed the goals of hospice as a patient service and the goals of care; we discussed EOL trajectories and transitions rafa the emotional impact of realizing mortality as a concrete reality from prior abstract considerations. Pt was reassured that no matter where they are along this trajectory, they are not alone - their medical team will remain by their side through their journey. Discussed the pros/cons of accepting help when especially weakened and distressed by pain-which would also help provide relief/decrease caregiver burden/strain. They reside in [place] and I shared that to my knowledge the closest inpt hospice would be [facility] in [place]. Helped them understand the levels of hospice and criteria for inpt hospice. Ophelia shared concern that her daughter "has the memory of an elephant" and wish to try to keep her memories positive and pleasant. We again discussed engaging palliative foundation funded [employer] with Rev Martha Morales for assistance on non clinical issues, supporting patients as they consider, navigate and become clear on what is most important for their end of life. Rev Morales helps patients align how they are currently living with the vision they see for yourself at the end, then identify and set goals, along with action steps for yourself to fulfill that vision. The focus is on the 5 domains of life: Spiritual, emotional, physical, mental, and practical. Ophelia shared that she is not sure if she is ready for this, but was grateful for the information. I encouraged pt and her that engaging Rev Thomas will be of most benefit while Ophelia's mind is still clear to assist in planning and focus on what is most important to Ophelia in what time she has left. We discussed options for ongoing medical care, continue current course of hospitalizations in hopes of prolonging life vs a transition to comfort directed care at home. Reviewed idea of transitional care, the current option in their area is [facility] program through [facility]. I reviewed Transitional care is a pre-hospice program designed to advanced illness patients the care they want at home and keep them out of the hospital. Transitional care addresses the needs of patients in a declining state of health who are not yet ready to enter hospice care. Patients may continue to receive life-prolonging treatments in additional to palliative care that focuses on comfort measures and pain relief. Studies demonstrate these Palliative therapies can have a positive effect on a patients mobility, happiness and overall quality of life. In Transitional care programs, nurses and other members of the home care and hospice team will regularly visit patients at home to teach them how to better manage their diseases, advance care planning and when necessary, end of life care. Providers will review and modify medication regimen to assure patient is not getting any unnecessary medications. Unlike hospice care, patients in this program don't need to have a prognosis of six months or less to live, and they can continue getting treatment that is aimed at curing their illnesses, not just treating symptoms. Transitional care programs are useful for patients who may be at or nearing the point where they starting to realize there disease is advanced and medical modalities have been maximized but no longer provide the relief they once did when patients' disease was not so severe. The overall goal of transitional care is to help our patients navigate through this process and ensure consistency of care and a smooth transition. Both shared that they are still feeling quite overwhelmed and not prepared for any further changes at this time. They request information about hospice and transitional care and how that would look at home. CM made aware and placed referral for Critical access hospital/transitional care program. Palliative care will continue to follow for ongoing symptom mgmt and patient/family support. (3) Cancer related pain: Plan: Pt c/o chronic aching type pain in thoracic-lumbar spinal area as well as chronic abdominal pain (sharp/gnawing pains in RUQ - occasionally radiates posteriorly around flank) that she relates to her metastatic cancer. She states that this pain bothers her less since admission and she attributes the reduction in pain to being mostly bed bound while hospitalized. She feels her back pain is much worse at home because she is caring for her young children. The back pain interferes with her living her life and performing iADLs for herself and her f amily. Although she does appear to be using her PRN morphine more frequently here, also contributing to her lower pain rating. She continues to require frequent PRN morphine for pain, but states that her pain may be slightly improved. She shared that the constant nausea is more bothersome than her pain, but pain persists. Again discussed that venting Gtube may also offer some relief. Pt started on duragesic patch yesterday afternoon, with continued frequent need for PRN morphine use for BTP. Discussed with pt plan to increase duragesic based on PRN needs, in hopes of more consistent pain mgmt. Pt agreeable to duragesic increase as well as transition to PO medications as able. Increase duragesic to 25 Mcg/Hr 1 patch TD Q3D@0900 MIN added Roxanol 10mg SL/PO Q3h PRN for BTP given ongoing N/V continue IV morphine for now, encouraged preference to PO/SL route if pt able to tolerate. (4) Lethargy: Plan: improving Plan as above Admission and Anticipated Discharge Date Admission Date: February 12, 2025 Subjective Met with pt at bedside, no visitors present. Pt was sitting upright in bed, shared her N/V is much improved overnight and she did get better sleep. NAD on RA. Spouse present at bedside. Review of Systems Review of Systems: All systems reviewed & are unremarkable except as noted in Subjective Physical Exam Constitutional: WD/WN, vitals as above Eyes: PERRL, conjunctivae normal, anicteric sclerae Neck: trachea midline, no thyromegaly Respiratory: normal respiratory effort, lungs clear to auscultation Cardiovascular: RRR, no murmur, no edema Gastrointestinal (Abdomen): normal bowel sounds, soft, nontender, no hepa tosplenomegaly Skin: no rashes, warm and dry + pallor Psychiatric: A+Ox3, euthymic affect Lymphatic: no cervical or axillary lymphadenopathy Results & Data Vital Signs (Past 12 Hours) Vital Signs Temp Pulse Pulse Resp BP Pulse Ox O2 Del Method 02/24/25 08:28 36.6 C 81 18 108/78 97 Room Air 02/24/25 05:45 89 02/24/25 03:24 36.6 C 108 H 18 116/81 99 Room Air 02/23/25 23:26 36.4 C L 109 H 18 120/77 100 Room Air 02/23/25 23:00 86 Laboratory Results Abnormal lab results 02/22/25 02/23/25 02/23/25 Range/Units 20:10 11:53 17:53 WBC 4.60 L (4.8-10.8) K/ul RBC 2.81 L (4.20-5.40) M/uL Hgb 8.6 L (12.0-16.0) g/dl Hct 25.4 L (37.0-47.0) % RDW Std Deviation 57.6 H (36.4-46.3) fL RDW Coeff of Ara 19.6 H (11.5-14.5) % Plt Count 16 L* (130-400) K/uL Lymph # (Auto) 0.08 L (1.20-3.40) K/uL Potassium (3.5-5.1) mmol/L Carbon Dioxide (21-32) mmol/L Creatinine (0.6-1.2) mg/dl BUN/Creatinine Ratio (10-20) Glucose (70-99(Fasting)) mg/dl POC Glucose 107 H (70-99) mg/dl Total Bilirubin (0.2-1.0) mg/dl AST (13-39) U/L Crossmatch See Detail 02/23/25 02/24/25 02/24/25 Range/Units 18:37 00:04 05:41 WBC 3.13 L (4.8-10.8) K/ul RBC 2.63 L (4.20-5.40) M/uL Hgb 7.7 L (12.0-16.0) g/dl Hct 23.4 L (37.0-47.0) % RDW Std Deviation 53.1 H (36.4-46.3) fL RDW Coeff of Ara 17.4 H (11.5-14.5) % Plt Count 12 L* (130-400) K/uL Lymph # (Auto) 0.09 L (1.20-3.40) K/uL Potassium 3.0 L (3.5-5.1) mmol/L Carbon Dioxide 33 H (21-32) mmol/L Creatinine 0.37 L (0.6-1.2) mg/dl BUN/Creatinine Ratio 51.4 H (10-20) Glucose 110 H (70-99(Fasting)) mg/dl POC Glucose 119 H 106 H (70-99) mg/dl Total Bilirubin 1.3 H D (0.2-1.0) mg/dl AST 99 H (13-39) U/L Crossmatch 02/24/25 Range/Units 05:43 WBC (4.8-10.8) K/ul RBC (4.20-5.40) M/uL Hgb (12.0-16.0) g/dl Hct (37.0-47.0) % RDW Std Deviation (36.4-46.3) fL RDW Coeff of Ara (11.5-14.5) % Plt Count (130-400) K/uL Lymph # (Auto) (1.20-3.40) K/uL Potassium (3.5-5.1) mmol/L Carbon Dioxide (21-32) mmol/L Creatinine (0.6-1.2) mg/dl BUN/Creatinine Ratio (10-20) Glucose (70-99(Fasting)) mg/dl POC Glucose 122 H (70-99) mg/dl Total Bilirubin (0.2-1.0) mg/dl AST (13-39) U/L Crossmatch Diagnostic Findings KUB X-Ray 02/21/25 15:43 2 views of the abdomen were obtained Findings: The bowel gas pattern appears unremarkable. No renal or ureteral calculi are seen. No foreign body is evident. No osseous abnormality is seen Impression: Unremarkable abdominal radiographs Electronically signed by Nikita Monique 02-21-2025 4:32 PM Abdomen/Pelvis CT 02/21/25 16:08 CT ABDOMEN and PELVIS with and without INTRAVENOUS CONTRAST HISTORY: Abdominal pain TECHNIQUE: CT abdomen and pelvis with and without contrast. IV CONTRAST: 100 mL of OMNIPAQUE 300 ENTERIC CONTRAST: Not Given COMPARISON: CT abdomen pelvis on 02/11/2025. FINDINGS: LOWER CHEST: Small left pleural fluid is again seen. Lobulated left breast malignancy is also again seen and partially visualized. LIVER: Diffuse hepatic metastases again seen yielding a pseudo- cirrhotic appearance. There is ill-defined density within the nas hepatis. Also some of the hepatic metastasis are not clearly from the wall of the distal stomach. The portal vein and the splenic vein are enlarged suggesting portal hypertension. GALLBLADDER/BILIARY: The gallbladder is not well-seen and may be surgically absent or underdistended. No abnormal biliary ductal dilatation has appreciated. SPLEEN: Splenomegaly. PANCREAS: Unremarkable. ADRENALS: Unremarkable. KIDNEYS: Unremarkable. No stones or hydronephrosis identified. PERITONEUM/RETROPERITONEUM. There are enlarged lymph nodes scattered throughout the mesentery, especially in the paracolic gutters. No aortic aneurysm. Small ascites, not significantly changed. GASTROINTESTINAL: No obstruction. Discussion of distal gastric body as above. There is a moderate distention of the gastric lumen proximally. Mild inflammatory changes of the small bowel loops in the large bowel demonstrate wall thickening. REPRODUCTIVE: No suspicious pelvic masses identified. URINARY BLADDER: Inflammatory changes with wall thickening. ABDOMINAL WALL: No significant hernia defect. BONES: No acute findings. Diffuse osseous metastases again seen. IMPRESSION: Redemonstrated heterogeneous left breast mass that is presumably the primary malignancy. Unchanged small left pleural fluid. Diffuse hepatic metastases are again seen. There may be an extracapsular extension of the metastatic disease into the nas hepatis where it appears to abut and possibly extend into the distal gastric body. Proximally the gastric lumen is moderately distended. Possible obstruction may be present secondary to the encroaching mass/metastatic process. If indicated, EGD evaluation may offer additional details. Remainder of the hollow viscus is not appreciably distended As before, mildly prominent mesenteric lymph nodes are seen scattered throughout the omentum, especially in the paracolic gutters. This may relate to the suspected enteritis and colitis picture although omental carcinomatosis is a less likely consideration as well. Also there is evidence of portal hypertension with extensive hepatic metastasis yielding a pseudo-cirrhotic appearance of the liver. The spleen is enlarged and the portal vein and the splenic vein are also enlarged. Given this, the apparent inflammatory changes of the hollow viscus could also be due to portal hypertensive enterocolopathy. Inflammatory changes of the urinary bladder may be due to cystitis Electronically signed by Ruslan Pacheco 02-21-2025 5:02 PM Medications Administered Current Inpatient Medications Al Hydrox/Mg Hydrox/Simethicone (Aluminum/Magnesium Susp 30 Ml Udc) 15 ml PO Q6H MIN Stop: 03/17/25 08:14 Last Admin: 02/24/25 08:04 Dose: 15 ml Diphenhydramine HCl (Diphenhydramine 50 Mg/Ml Vial) 25 mg IV HS PRN PRN Reason: insomnia Stop: 03/25/25 19:25 Last Admin: 02/23/25 20:09 Dose: 25 mg Diphenoxylate HCl/Atropine (Diphenoxylate/Atropine 2.5/0.025mg Tab) 1 tab PO Q6H PRN PRN Reason: Diarrhea Stop: 03/14/25 02:50 Escitalopram Oxalate (Escitalopram Oxalate 10 Mg Tab) 10 mg PO HS MIN Stop: 03/14/25 20:59 Last Admin: 02/23/25 20:16 Dose: 10 mg Fentanyl (Fentanyl 25 Mcg/Hr Tdsy) 1 patch TD Q3D@0900 MIN Stop: 03/10/25 10:29 Gabapentin (Gabapentin 100 Mg Cap) 100 mg PO HS MIN Stop: 03/26/25 20:59 Heparin Sodium (Porcine) (Heparin 100 Unit/Ml 5ml Flush) 5 ml FLUSH PRN PRN PRN Reason: Flush Stop: 03/14/25 06:49 Hyoscyamine (Hyoscyamine Sulfate 0.125 Mg Tab) 0.125 mg SL Q4H PRN PRN Reason: Cramping Stop: 03/16/25 09:22 Last Admin: 02/14/25 10:07 Dose: 0.125 mg Amino Acids/Dextrose 1,094 ml/ (Nutrition (Parenteral)) 1,094 mls @ 45.6 mls/hr IV .Q24H MIN; Protocol Stop: 02/24/25 15:59 Last Admin: 02/23/25 16:27 Dose: 45.6 mls/hr Famotidine (Pepcid 20mg Iv Push) 20 mg in 5 mls @ 2.5 mls/min IV Q12H MIN Stop: 03/25/25 20:59 Last Admin: 02/24/25 09:21 Dose: 2.5 mls/min Pantoprazole Sodium (Protonix) 40 mg in 10 mls @ 5 mls/min IV BID MIN Stop: 03/26/25 08:59 Last Admin: 02/24/25 09:27 Dose: 5 mls/min Potassium Chloride (K Luiz / Wtr) 10 meq in 100 mls @ 100 mls/hr IV Q1H [facility] Stop: 02/24/25 11:59 Last Admin: 02/24/25 10:19 Dose: 80 mls/hr Lorazepam (Lorazepam 0.5 Mg Tab) 0.5 mg SL Q4H PRN PRN Reason: Agitation Stop: 03/26/25 10:20 Melatonin (Melatonin 3 Mg Tab) 3 mg PO HS [facility] Stop: 03/22/25 20:59 Last Admin: 02/23/25 20:15 Dose: Not Given Miscellaneous (Stop Clinolipid) 1 each N/A TODAY@04 [facility] Stop: 03/20/25 03:59 Last Admin: 02/24/25 04:04 Dose: 1 each Miscellaneous (Fentanyl Patch Remove & Waste) 1 each N/A Q3D@0859 [facility] Stop: 03/26/25 10:28 Miscellaneous (Check Fentanyl Patch Placement) 1 each N/A QS [facility] Stop: 03/26/25 15:59 Miscellaneous Information (Tpn/Ppn Consult Pharmacy) 1 each N/A UD PRN PRN Reason: Consult Stop: 03/18/25 09:00 Morphine Sulfate (Morphine Sulfate 4 Mg/Ml 1 Ml Carp\\Vial) 4 mg IV Q3H PRN PRN Reason: break through pain Stop: 02/26/25 02:50 Morphine Sulfate (Morphine Sulfate 10 Mg/0.5 Ml Udp) 12 mg PO Q3H PRN PRN Reason: Breakthrough Pain Stop: 03/10/25 10:26 Neomycin/Polymyxin/Bacitracin (Neomycin/Polymyx/Bacitr Oint 15 Gm Tube) 1 appln EXT Q48H PRN PRN Reason: Consult Stop: 03/21/25 16:11 Olanzapine (Olanzapine Zydis 10 Mg Orally Dis. Tab) 10 mg PO Q12H PRN PRN Reason: nausea Stop: 03/25/25 11:43 Last Admin: 02/24/25 03:18 Dose: 10 mg Ondansetron HCl (Ondansetron 4 Mg Od Tab) 8 mg PO Q6H PRN PRN Reason: Nausea Stop: 03/24/25 11:27 Last Admin: 02/24/25 03:38 Dose: 8 mg Prochlorperazine (Prochlorperazine Maleate 10 Mg Tab) 10 mg PO Q6H [facility] Stop: 03/24/25 11:29 Last Admin: 02/24/25 09:11 Dose: Not Given Simethicone (Simethicone 80 Mg Chew) 160 mg PO Q6H [facility] Stop: 03/19/25 17:29 Last Admin: 02/24/25 05:46 Dose: Not Given Sucralfate (Sucralfate 1 Gm/10 Ml Udc) 1 gm PO ACHS PRN PRN Reason: GI Upset Stop: 03/14/25 11:29 Last Admin: 02/13/25 16:33 Dose: 1 gm Sucralfate (Sucralfate 1 Gm/10 Ml Udc) 1 gm PO QID [facility] Stop: 03/15/25 19:14 Last Admin: 02/24/25 09:34 Dose: 1 gm PG Care Time/CCT Total # of Minutes Spent Total Time Spent with Patient: Total time spent is greater than 50% in coordination of care (as documented) at patient's floor/unit and/or counseling patient: Advanced Care Planning 21617 Advanced Care Planning 30 Min C[place] [address] SUB INP/OBS CARE 3/50MIN Patient Type Established History Expanded Problem Focused Exam Expanded Problem Focused Medical Decision Making Moderate Complexity Diagnoses Refractory nausea and vomiting R11.2 Palliative care by specialist Z51.5 Cancer related pain G89.3 Lethargy R53.83 Additional Codes Advanced Care Planning - 89331 Advanced Care Planning 30 Min: 35580 Advanced Care Planning 30 Min ([id number])
[2025-02-24] MEDS: MoRPHine SULFATE 4 MG/ML 1 ML CARP\\VIAL IV PRN (11:37)
[2025-02-24] MEDS: SODIUM CHLORIDE 0.9% 1,000 ML IV SCH (13:54)
[2025-02-24] MEDS ORDERED: CENTRAL TPN IV SCH (14:00)
[2025-02-24] MEDS ORDERED: [UNRECOGNIZED DRUG - OTHER] IV SCH (14:00)
[2025-02-24] MEDS: MoRPHine SULFATE 10 MG/0.5 ML UDP PO PRN (15:28)
[2025-02-24] MEDS: CLINOLIPID 20% IV FAT EMULSION 250 ML IV SCH (16:45)
[2025-02-24] MEDS: CENTRAL TPN IV SCH (16:45)
[2025-02-24] MEDS: [UNRECOGNIZED DRUG - OTHER] IV SCH (16:45)
--- NOTE | 2025-02-24 17:28 | Hospitalist Progress Note ---
Date of Service February 24, 2025 Assessment & Plan (1) Vomiting: (2) Metastatic disease: (3) Thrombocytopenia: (4) Gastric outlet obstruction: (5) Refractory nausea and vomiting: (6) Cancer related pain: (7) Hypokalemia due to excessive gastrointestinal loss of potassium: (8) Metabolic alkalosis: Plan 34yo female with history of metastatic breast cancer (lesions to spine, lung, liver, brain) presenting with multiple episodes of vomiting with hematemesis prior to arrival. Patient has had hematemesis on several occasions necessitating hospital admission. 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 #Metastatic breast cancer / malignant gastric outlet obstruction / hematemesis / gastritis / chemotherapy induced neutropenia (now resolved) she set to begin radiation therapy treatment on 02/20/2025 -Typically gets 3 week rotations of chemotherapy with the first week consisting of the combination therapy, second week with monotherapy and third week free of medications - however questionable ongoing benefit of chemotherapy but patient planning on getting 2nd opinion at [facility] -Finished radiation to abdomen today which likely will help hematemesis but less likely to help gastric outlet obstruction. Will start radiation to her breast next week to help with pain -Continue Carafate, PPI, Pepcid, TPN -I have had extensive conversations over the last [address] Zepeda, Dr Mack, Dr Quezada, Dr Frausto and Neris (palliative). Current plan is to try and discharge home with mostly what she has been getting in hospital - intravenous pantoprazole is required as switching to PO not absorbed and had additional hematemesis on trial of this. She will also need TPN. From my point of view whether this is done through hospice or an agency that can quickly switch to hospice are both fine. -discussed TPN with dietary and pharmacy today and will be making adjustments due to rising BUN, alkalosis and hypokalemia - will correct with KCl and NSS today but ideally this should be addressed in the TPN moving forward. Increasing calories in the TPN is suitable given the extent of her metastatic cancer. This will also increase volume to offset her gastric losses. Increase KCl rather than potassium acetate should help with alkalosis. -options to help vomiting are limited due to thrombocytopenia, should plt > 50 we can discuss possible venting g-tube placement again. The less she takes orally the less she will vomit (she is aware of this) but given goal is mainly for comfort I will leave it up to her if she wish to keep drinking small amounts of Gatorade but should still be on just sips and chips. #Anemia Secondary to hematemesis + bone marrow infiltration of cancer. Transfused 1 unit yesterday after acute hemorrhage with expected hemoglobin drop this morning. Unless further hematemesis no need to repeat CBC until tomorrow. #Thrombocytopenia INR normal. Suspected related to bone marrow involvement with her cancer and unlikely to improve. Platelet transfusion yesterday due to hematemesis but unless she continues to bleed no indication for continued platelet transfusions. #Cancer related pain Appreciate management of this from palliative care - Fentanyl patch started 02/22 Gabapentin added QAM from prior provider on 02/20, will switch to QPM #Ingrown toenail s/p bedside procedure by podiatry on 02/17 #Anxiety -Lorazepam IV PRN -Continue Escitalopram #VTE Prophylaxis - SCDs and JAMES stockings, encourage ambulation #Disposition - continued admission on PCU until arrangements can be made of home TPN, pain management, IV pantoprazole Admission and Anticipated Discharge Date Admission Date: February 12, 2025 Subjective No further clots vomited overnight. Vomiting has slowed as she has decreased oral intake although reportedly still drinking about half the Gatorade rather than spitting it out. Physical Exam Constitutional: well developed; + not well nourished and no acute distress Respiratory: normal respiratory effort; no respiratory distress Results & Data Results & Data Vital Signs (Past 12 Hours) Vital Signs Temp Pulse Pulse Resp BP Pulse Ox O2 Del Method 02/24/25 16:04 36.8 C 94 H 18 124/80 98 Room Air 02/24/25 13:00 84 02/24/25 12:13 36.8 C 78 22 110/79 98 Room Air 02/24/25 08:28 36.6 C 81 18 108/78 97 Room Air 02/24/25 05:45 89 Laboratory Results Abnormal lab results 02/22/25 02/23/25 02/23/25 Range/Units 20:10 17:53 18:37 WBC 4.60 L (4.8-10.8) K/ul RBC 2.81 L (4.20-5.40) M/uL Hgb 8.6 L (12.0-16.0) g/dl Hct 25.4 L (37.0-47.0) % RDW Std Deviation 57.6 H (36.4-46.3) fL RDW Coeff of Ara 19.6 H (11.5-14.5) % Plt Count 16 L* (130-400) K/uL Lymph # (Auto) 0.08 L (1.20-3.40) K/uL Potassium (3.5-5.1) mmol/L Carbon Dioxide (21-32) mmol/L Creatinine (0.6-1.2) mg/dl BUN/Creatinine Ratio (10-20) Glucose (70-99(Fasting)) mg/dl POC Glucose 119 H (70-99) mg/dl Total Bilirubin (0.2-1.0) mg/dl AST (13-39) U/L Crossmatch See Detail 02/24/25 02/24/25 02/24/25 Range/Units 00:04 05:41 05:43 WBC 3.13 L (4.8-10.8) K/ul RBC 2.63 L (4.20-5.40) M/uL Hgb 7.7 L (12.0-16.0) g/dl Hct 23.4 L (37.0-47.0) % RDW Std Deviation 53.1 H (36.4-46.3) fL RDW Coeff of Ara 17.4 H (11.5-14.5) % Plt Count 12 L* (130-400) K/uL Lymph # (Auto) 0.09 L (1.20-3.40) K/uL Potassium 3.0 L (3.5-5.1) mmol/L Carbon Dioxide 33 H (21-32) mmol/L Creatinine 0.37 L (0.6-1.2) mg/dl BUN/Creatinine Ratio 51.4 H (10-20) Glucose 110 H (70-99(Fasting)) mg/dl POC Glucose 106 H 122 H (70-99) mg/dl Total Bilirubin 1.3 H D (0.2-1.0) mg/dl AST 99 H (13-39) U/L Crossmatch 02/24/25 Range/Units 12:10 WBC (4.8-10.8) K/ul RBC (4.20-5.40) M/uL Hgb (12.0-16.0) g/dl Hct (37.0-47.0) % RDW Std Deviation (36.4-46.3) fL RDW Coeff of Ara (11.5-14.5) % Plt Count (130-400) K/uL Lymph # (Auto) (1.20-3.40) K/uL Potassium (3.5-5.1) mmol/L Carbon Dioxide (21-32) mmol/L Creatinine (0.6-1.2) mg/dl BUN/Creatinine Ratio (10-20) Glucose (70-99(Fasting)) mg/dl POC Glucose 103 H (70-99) mg/dl Total Bilirubin (0.2-1.0) mg/dl AST (13-39) U/L Crossmatch PG Care Time/CCT Total # of Minutes Spent Total Time Spent: 60 Total Time Spent with Patient: Total time spent is greater than 50% in coordination of care (as documented) at patient's floor/unit and/or counseling patient: Coding Level of Care Code 09235 SUB INP/OBS CARE 3/50MIN Diagnoses Vomiting R11.10 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
[2025-02-24] MEDS: GABAPENTIN 100 MG CAP PO SCH (20:53)
[2025-02-25] MEDS: PROCHLORPERAZINE 10 MG in SYRINGE 8 ML IV SCH (00:04)
[2025-02-25 06:17] LABS: Anion Gap 7.0 (3-11); Blood Urea Nitrogen 19.0 mg/dl (6-23); Calcium 8.2 mg/dl (8.6-10.3); Carbon Dioxide 25.0 mmol/L (21-32); Chloride 108.0 mmol/L (98-107); Creatinine Clr Calc Pharmacy 205.5 ml/min; Glucose 106.0 mg/dl (70-99(Fasting)); Magnesium 1.8 mg/dl (1.7-2.4); Potassium 3.0 mmol/L (3.5-5.1); Sodium 140.0 mmol/L (136-145); Triglycerides 71.0 mg/dl (0-150)
[2025-02-25 06:18] LABS: Hematocrit (blood only) 22.0 % (37.0-47.0); Hemoglobin 7.2 g/dl (12.0-16.0); Mean Corpuscular Hemoglobin 29.5 pg (25.0-34.0); Mean Corpuscular Volume 90.2 fL (80.0-100.0); Platelet Count 8 K/uL (130-400); RDW Standard Deviation 52.6 fL (36.4-46.3); Red Blood Count 2.44 M/uL (4.20-5.40); White Blood Count 1.87 K/ul (4.8-10.8)
[2025-02-25 06:33] LABS: Immature Granulocytes # (auto) 0.01 K/uL (0.01-0.20); Immature Granulocytes % (auto) 0.5 %; Tear Drop Cells 1+
[2025-02-25] MEDS ORDERED: SODIUM CHLORIDE 0.9% 100 ML IV PRN (07:23)
[2025-02-25] MEDS: DIPHENOXYLATE/ATROPINE 2.5/0.025MG TAB PO PRN (08:24)
[2025-02-25] MEDS: POTASSIUM CHLORIDE / WTR 10 MEQ/100 ML PLCT IV SCH (08:28)
[2025-02-25] MEDS: MAGNESIUM SULFATE / D5W 1 GM/100 ML BAG IV ONE (08:29)
[2025-02-25] MEDS: AA 8%/D14W 2L 1,305 ML in Central TPN bag 0 ML IV SCH (16:25)
[2025-02-25] MEDS: CLINOLIPID 20% IV FAT EMULSION 250 ML IV SCH (16:26)
--- NOTE | 2025-02-25 18:51 | Hospitalist Progress Note ---
Date of Service February 25, 2025 Assessment & Plan (1) Vomiting: (2) Metastatic disease: (3) Thrombocytopenia: (4) Gastric outlet obstruction: (5) Refractory nausea and vomiting: (6) Cancer related pain: (7) Hypokalemia due to excessive gastrointestinal loss of potassium: (8) Metabolic alkalosis: Plan 34yo female with history of metastatic breast cancer (lesions to spine, lung, liver, brain) presenting with multiple episodes of vomiting with hematemesis prior to arrival. Patient has had hematemesis on several occasions necessitating hospital admission. 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 #Metastatic breast cancer / malignant gastric outlet obstruction / hematemesis / gastritis / chemotherapy induced neutropenia (now resolved) she set to begin radiation therapy treatment on 02/20/2025 -Typically gets 3 week rotations of chemotherapy with the first week consisting of the combination therapy, second week with monotherapy and third week free of medications - however questionable ongoing benefit of chemotherapy but patient planning on getting 2nd opinion at [facility] -Finished radiation to abdomen 02/23 which likely will help hematemesis but less likely to help gastric outlet obstruction. Will start radiation to her breast next week to help with pain -Continue Carafate, PPI, Pepcid, TPN -Current plan is to try and discharge home with mostly what she has been getting in hospital - intravenous pantoprazole is required as switching to PO not absorbed and had additional hematemesis on trial off this. She will also need TPN. From my point of view whether this is done through hospice or an agency that can quickly switch to hospice are both fine. -TPN - planning on additional potassium given loss with vomiting. Additional IV KCl replacement ordered today -options to help vomiting are limited due to thrombocytopenia, should plt > 50 we can discuss possible venting g-tube placement again. The less she takes orally the less she will vomit (she is aware of this) but given goal is mainly for comfort I will leave it up to her if she wish to keep drinking small amounts of Gatorade but should still be on just sips and chips. #Anemia Secondary to hematemesis + bone marrow infiltration of cancer. Hgb 7.2. Since she has no ability to replenish her own blood will transfuse 2 units. Repeat CBC in AM #Thrombocytopenia INR normal. Suspected related to bone marrow involvement with her cancer and unlikely to improve. Platelet transfusion 02/23 due to hematemesis but unless she continues to bleed no indication for continued platelet transfusions. #Cancer related pain Appreciate management of this from palliative care - Fentanyl patch started 02/22 Gabapentin added QAM from prior provider on 02/20, switched to QPM #Ingrown toenail s/p bedside procedure by podiatry on 02/17 #Anxiety -Lorazepam IV PRN -Continue Escitalopram #VTE Prophylaxis - SCDs and JAMES stockings, encourage ambulation #Disposition - continued admission on PCU until arrangements can be made of home TPN, pain management, IV pantoprazole Admission and Anticipated Discharge Date Admission Date: February 12, 2025 Subjective No concerns or questions. No further hematemesis. Ongoing vomiting. Physical Exam Constitutional: WD/WN, vitals as above Respiratory: normal respiratory effort; no respiratory distress Results & Data Results & Data Vital Signs (Past 12 Hours) Vital Signs Temp Pulse Pulse Resp BP BP Pulse Ox 02/25/25 18:46 36.6 C 81 16 126/89 97 02/25/25 17:03 36.6 C 81 16 119/91 97 02/25/25 16:48 36.9 C 80 16 130/85 97 02/25/25 16:43 37.0 C 80 16 122/83 97 02/25/25 16:29 37.2 C 18 102/60 95 02/25/25 15:20 36.8 C 95 H 18 130/86 99 02/25/25 13:46 37.0 C 84 16 104/68 96 02/25/25 13:44 37.1 C 86 16 96/59 L 95 02/25/25 13:26 36.9 C 85 16 103/63 95 02/25/25 13:05 85 02/25/25 12:10 37.0 C 90 18 127/79 96 02/25/25 08:31 36.7 C 108 H 18 128/92 97 O2 Del Method O2 Flow Rate 02/25/25 18:46 0 02/25/25 17:03 0 02/25/25 16:48 0 02/25/25 16:43 0 02/25/25 16:29 0 02/25/25 15:20 0 02/25/25 13:46 0 02/25/25 13:44 02/25/25 13:26 0 02/25/25 13:05 02/25/25 12:10 Room Air 02/25/25 08:31 Room Air PG Care Time/CCT Total # of Minutes Spent Total Time Spent with Patient: Total time spent is greater than 50% in coordination of care (as documented) at patient's floor/unit and/or counseling patient: Coding Level of Care Code 19323 SUB INP/OBS CARE 2/35MIN Diagnoses Vomiting R11.10 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
[2025-02-26 06:37] LABS: Anion Gap 5.0 (3-11); Blood Urea Nitrogen 14.0 mg/dl (6-23); Calcium 8.3 mg/dl (8.6-10.3); Carbon Dioxide 25.0 mmol/L (21-32); Chloride 108.0 mmol/L (98-107); Creatinine Clr Calc Pharmacy 188.7 ml/min; Glucose 93.0 mg/dl (70-99(Fasting)); Magnesium 1.7 mg/dl (1.7-2.4); Potassium 3.1 mmol/L (3.5-5.1); Sodium 138.0 mmol/L (136-145)
[2025-02-26 07:31] LABS: Hematocrit (blood only) 26.8 % (37.0-47.0); Hemoglobin 9.0 g/dl (12.0-16.0); Mean Corpuscular Hemoglobin 29.0 pg (25.0-34.0); Mean Corpuscular Volume 86.5 fL (80.0-100.0); Platelet Count 7 K/uL (130-400); RDW Standard Deviation 51.2 fL (36.4-46.3); Red Blood Count 3.10 M/uL (4.20-5.40); White Blood Count 1.79 K/ul (4.8-10.8)
[2025-02-26 07:45] LABS: Immature Granulocytes # (auto) 0.02 K/uL (0.01-0.20); Immature Granulocytes % (auto) 1.1 %; Polychromasia 1+; Tear Drop Cells 1+
[2025-02-26] MEDS: POTASSIUM CHLORIDE / WTR 10 MEQ/100 ML PLCT IV SCH (08:06)
[2025-02-26] MEDS: MAGNESIUM SULFATE / D5W 1 GM/100 ML BAG IV SCH (08:06)
[2025-02-26] MEDS: MoRPHine SULFATE 4 MG/ML 1 ML CARP\\VIAL IV PRN (09:48)
--- NOTE | 2025-02-26 15:34 | Hospitalist Progress Note ---
Date of Service February 26, 2025 Assessment & Plan (1) Vomiting: (2) Metastatic disease: (3) Thrombocytopenia: (4) Gastric outlet obstruction: (5) Refractory nausea and vomiting: (6) Cancer related pain: (7) Hypokalemia due to excessive gastrointestinal loss of potassium: (8) Metabolic alkalosis: Plan 34yo female with history of metastatic breast cancer (lesions to spine, lung, liver, brain) presenting with multiple episodes of vomiting with hematemesis prior to arrival. Patient has had hematemesis on several occasions necessitating hospital admission. 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 Will start radiation to her breast next week to help with pain -Continue Carafate, PPI, Pepcid, TPN -TPN - planning on additional potassium given loss with vomiting. Additional IV 40 meq KCl replacement ordered today -Anatomical options to help vomiting are limited due to thrombocytopenia, should plt > 50 we can discuss possible venting g-tube placement again but I think this is unlikely at this stage give persistently low platelets and lack of transfusion responsiveness. The less she takes orally the less she will vomit (she is aware of this) but given goal is mainly for comfort I will leave it up to her if she wish to keep drinking small amounts of Gatorade but should still be on just sips and chips. We will continue on ondansetron and Compazine for nausea but there isn't any medications that will stop the vomiting since there is nowhere for her gastric secretions to go. -Current plan is to try and discharge home with mostly what she has been getting in hospital - intravenous pantoprazole is required as switching to PO not absorbed and had additional hematemesis on trial off this. She will also need TPN. From my point of view whether this is done through hospice or an agency that can quickly switch to hospice are both fine. #Anemia Secondary to hematemesis + bone marrow infiltration of cancer. Hgb 9.0, repeat with AM labs Perhaps she can also get CBC every few weeks for possible blood transfusions if otherwise doing well #Thrombocytopenia INR normal. Secondary to metastatic bone marrow involvement and unlikely to improve. Platelet transfusion 02/23 due to hematemesis but unless she continues to bleed no indication for continued platelet transfusions. If further hematemesis recommend platelet transfusion. #Cancer related pain Appreciate management of this from palliative care - Fentanyl patch started 02/22 Gabapentin added QAM from prior provider on 02/20, switched to QPM #Ingrown toenail s/p bedside procedure by podiatry on 02/17, healing well #Anxiety -Lorazepam IV PRN -Continue Escitalopram #VTE Prophylaxis - SCDs and JAMES stockings, encourage ambulation #Disposition - stable for downgrade to med/surg if suitable room can be found Admission and Anticipated Discharge Date Admission Date: February 12, 2025 Subjective Toe healing well. No questions or concerns. Physical Exam Respiratory: normal respiratory effort; no respiratory distress Skin: healing ingrown toe nail removal, no surrounding cellulitis Results & Data Results & Data Vital Signs (Past 12 Hours) Vital Signs Temp Pulse Pulse Resp BP Pulse Ox O2 Del Method 02/26/25 12:05 89 02/26/25 11:40 36.8 C 90 16 120/86 99 Room Air 02/26/25 08:04 36.9 C 79 16 113/79 96 Room Air 02/26/25 05:46 89 PG Care Time/CCT Total # of Minutes Spent Total Time Spent with Patient: Total time spent is greater than 50% in coordination of care (as documented) at patient's floor/unit and/or counseling patient: Coding Level of Care Code 58372 SUB INP/OBS CARE 2/35MIN Diagnoses Vomiting R11.10 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
[2025-02-26] MEDS: CLINOLIPID 20% IV FAT EMULSION 250 ML IV SCH (17:13)
[2025-02-26] MEDS: [UNRECOGNIZED DRUG - OTHER] IV SCH (17:14)
[2025-02-26] MEDS: CENTRAL TPN IV SCH (17:14)
[2025-02-26] MEDS ORDERED: Nursing to Pharmacy Communication SCH (23:30)
[2025-02-27 06:36] LABS: Anisocytosis Present; Dohle Bodies 1+; Hematocrit (blood only) 28.5 % (37.0-47.0); Hemoglobin 9.6 g/dl (12.0-16.0); Immature Granulocytes # (auto) 0.02 K/uL (0.01-0.20); Immature Granulocytes % (auto) 1.2 %; Mean Corpuscular Hemoglobin 29.4 pg (25.0-34.0); Mean Corpuscular Volume 87.2 fL (80.0-100.0); Platelet Count 7 K/uL (130-400); Polychromasia 1+; RDW Standard Deviation 51.1 fL (36.4-46.3); Red Blood Count 3.27 M/uL (4.20-5.40); Tear Drop Cells 1+; Toxic Granulation 1+; White Blood Count 1.72 K/ul (4.8-10.8)
[2025-02-27 06:37] LABS: Anion Gap 6.0 (3-11); Blood Urea Nitrogen 15.0 mg/dl (6-23); Calcium 8.2 mg/dl (8.6-10.3); Carbon Dioxide 24.0 mmol/L (21-32); Chloride 107.0 mmol/L (98-107); Creatinine Clr Calc Pharmacy 160.0 ml/min; Glucose 115.0 mg/dl (70-99(Fasting)); Magnesium 1.7 mg/dl (1.7-2.4); Potassium 3.2 mmol/L (3.5-5.1); Sodium 137.0 mmol/L (136-145)
[2025-02-27] MEDS ORDERED: SIMETHICONE 80 MG CHEW PO PRN (07:39)
[2025-02-27] MEDS: POTASSIUM CHLORIDE / WTR 10 MEQ/100 ML PLCT IV SCH (09:11)
[2025-02-27] MEDS: LORazepam 0.5 MG TAB SL PRN (10:45)
--- NOTE | 2025-02-27 12:17 | Palliative Care Progress Note ---
Date of Service February 27, 2025 Assessment & Plan (1) Refractory nausea and vomiting: Plan: Pt c/o intractable N/V for about six weeks - constant nausea that frequently worsens causing emesis, but the underlying nausea has been constant and refractory to medications for several weeks. She previously has had 4mg of zofran which offers no relief. She reports relief from rotating zofran and compazine previously for nausea after cancer treatments, but this time nothing worked so she came to hospital. She shared that her nausea had improved and she was tolerating sips after 24hr of RTC alternating zofran/compazine, but it worsened and Zyprexa was added yesterday for better mgmt of nausea. Pt shared had improved nausea with addition of zyprexa, but is worse today. Noted in MAR that pt has not had zofran overnight. Discussed with Ophelia scheduling zofran/compazine (as above), pt agreeable. Discussed that this may need to be a long term care social worker plan for her given her gastric outlet obstruction. She remains hopeful that N/V will improve after radiation (completed 02/24/25). Continue Zyprexa 10mg ODT q12h PRN for refractory nausea Continue Zofran 8mg ODT q6hr MIN alternate zofran/compazine so one or other is given every three hours MIN until nausea relieved then PRN Continue Compazine 10mg PO q6hr MIN Continue Carafate, PPI, Pepcid, TPN; consider adding PPI, pepcid to TPN for ease of use at home. (2) Palliative care by specialist: Plan: Met with pt at bedside, spouse at bedside. Met with them from 10:00 - 10:40 to discuss GOC. Austin shared that he has an appointment scheduled with [facility] to discuss going home with [facility] to provide pt with [facility]. Goals are clearly established at this time for ongoing life prolonging therapies to afford her more quality time at home with her family. They will eventually transition to hospice level care and she has verbalized that she will likely not wish to be at home at her time of . Austin shared that they have planned meetings with [facility] program and [employer], Rev Martha Morales. They are concerned with making Ophelia's illness and passing as easy as possible on her children and establishing strong and positive memories in the minds of her 3y son and 5y daughter. Roger shared that he will also lean into the emotional support being offered by these services. Palliative care will continue to follow for ongoing symptom mgmt and patient/family support. (3) Cancer related pain: Plan: Pt c/o chronic aching type pain in thoracic-lumbar spinal area as well as chronic abdominal pain (sharp/gnawing pains in RUQ - occasionally radiates posteriorly around flank) that she relates to her metastatic cancer. She states that this pain bothers her less since admission and she attributes the reduction in pain to being mostly bed bound while hospitalized. She feels her back pain is much worse at home because she is caring for her young children. The back pain interferes with her living her life and performing iADLs for herself and her family. Although she does appear to be using her PRN morphine more frequently here, also contributing to her lower pain rating. She continues to require frequent PRN morphine for pain, but states that her pain may be slightly improved. She shared that the constant nausea is more bothersome than her pain, but pain persists. Ophelia had continued frequent need for PRN morphine use for BTP. Noted in MAR that she has been using IV morphine rather than PO. We discussed this and she shared that the liquid morphine has a terrible taste. Discussed concern that with her persistent N/V, SL will likely have the best chance of absorption, offering better pain relief. We discussed increasing duragesic again based on PRN needs, in hopes of more consistent pain mgmt and less frequent need for PRN meds. Pt agreeable to duragesic increase as well as transition to PO medications as able. Increase duragesic to 50 Mcg/Hr 1 patch TD Q3D@0900 MIN continue Roxanol 10mg SL/PO Q3h PRN for BTP given ongoing N/V continue IV morphine for now, encouraged preference to PO/SL route if pt able to tolerate. Will not have access to IV morphine as a home medication per [facility] area representative. (4) Lethargy: Plan: improving Plan as above Admission and Anticipated Discharge Date Admission Date: February 12, 2025 Subjective Assessed pt at bedside, spouse present. Pt experiencing ongoing N/V, did not receive zofran overnight. VSS, no acute events over weekend. Spouse shared they have planned meetings with [facility] program and [employer], Rev Martha Morales. Continuing to manage pain, nausea in hopes to be stable for discharge to home with [facility]. Review of Systems Review of Systems: All systems reviewed & are unremarkable except as noted in Subjective Physical Exam Constitutional: WD/WN, vitals as above Eyes: PERRL, conjunctivae normal, anicteric sclerae Neck: trachea midline, no thyromegaly Respiratory: normal respiratory effort, lungs clear to auscultation Cardiovascular: RRR, no murmur, no edema Gastrointestinal (Abdomen): normal bowel sounds, soft, nontender, no hepatosplenomegaly Skin: no rashes, warm and dry + pallor Psychiatric: A+Ox3, euthymic affect Lymphatic: no cervical or axillary lymphadenopathy Results & Data Vital Signs (Past 12 Hours) Vital Signs Temp Pulse Resp BP Pulse Ox O2 Del Method 02/27/25 07:36 37.7 C H 112 H 16 112/77 93 Room Air Laboratory Results Abnormal lab results 02/27/25 Range/Units 05:36 WBC 1.72 L (4.8-10.8) K/ul RBC 3.27 L (4.20-5.40) M/uL Hgb 9.6 L (12.0-16.0) g/dl Hct 28.5 L (37.0-47.0) % RDW Std Deviation 51.1 H (36.4-46.3) fL RDW Coeff of Ara 17.6 H (11.5-14.5) % Plt Count 7 L* (130-400) K/uL Neut # (Auto) 1.25 L (1.40-6.50) K/uL Lymph # (Auto) 0.08 L (1.20-3.40) K/uL Potassium 3.2 L (3.5-5.1) mmol/L Creatinine 0.46 L (0.6-1.2) mg/dl BUN/Creatinine Ratio 32.6 H (10-20) Glucose 115 H (70-99(Fasting)) mg/dl Calcium 8.2 L (8.6-10.3) mg/dl Diagnostic Findings KUB X-Ray 02/21/25 15:43 2 views of the abdomen were obtained Findings: The bowel gas pattern appears unremarkable. No renal or ureteral calculi are seen. No foreign body is evident. No osseous abnormality is seen Impression: Unremarkable abdominal radiographs Electronically signed by Nikita Monique 02-21-2025 4:32 PM Abdomen/Pelvis CT 02/21/25 16:08 CT ABDOMEN and PELVIS with and without INTRAVENOUS CONTRAST HISTORY: Abdominal pain TECHNIQUE: CT abdomen and pelvis with and without contrast. IV CONTRAST: 100 mL of OMNIPAQUE 300 ENTERIC CONTRAST: Not Given COMPARISON: CT abdomen pelvis on 02/11/2025. FINDINGS: LOWER CHEST: Small left pleural fluid is again seen. Lobulated left breast malignancy is also again seen and partially visualized. LIVER: Diffuse hepatic metastases again seen yielding a pseudo- cirrhotic appearance. There is ill-defined density within the nas hepatis. Also some of the hepatic metastasis are not clearly from the wall of the distal stomach. The portal vein and the splenic vein are enlarged suggesting portal hypertension. GALLBLADDER/BILIARY: The gallbladder is not well-seen and may be surgically absent or underdistended. No abnormal biliary ductal dilatation has appreciated. SPLEEN: Splenomegaly. PANCREAS: Unremarkable. ADRENALS: Unremarkable. KIDNEYS: Unremarkable. No stones or hydronephrosis identified. PERITONEUM/RETROPERITONEUM. There are enlarged lymph nodes scattered throughout the mesentery, especially in the paracolic gutters. No aortic aneurysm. Small ascites, not significantly changed. GASTROINTESTINAL: No obstruction. Discussion of distal gastric body as above. There is a moderate distention of the gastric lumen proximally. Mild inflammatory changes of the small bowel loops in the large bowel demonstrate wall thickening. REPRODUCTIVE: No suspicious pelvic masses identified. URINARY BLADDER: Inflammatory changes with wall thickening. ABDOMINAL WALL: No significant hernia defect. BONES: No acute findings. Diffuse osseous metastases again seen. IMPRESSION: Redemonstrated heterogeneous left breast mass that is presumably the primary malignancy. Unchanged small left pleural fluid. Diffuse hepatic metastases are again seen. There may be an extracapsular extension of the metastatic disease into the nas hepatis where it appears to abut and possibly extend into the distal gastric body. Proximally the gastric lumen is moderately distended. Possible obstruction may be present secondary to the encroaching mass/metastatic process. If indicated, EGD evaluation may offer additional details. Remainder of the hollow viscus is not appreciably distended As before, mildly prominent mesenteric lymph nodes are seen scattered throughout the omentum, especially in the paracolic gutters. This may relate to the suspected enteritis and colitis picture although omental carcinomatosis is a less likely consideration as well. Also there is evidence of portal hypertension with extensive hepatic metastasis yielding a pseudo-cirrhotic appearance of the liver. The spleen is enlarged and the portal vein and the splenic vein are also enlarged. Given this, the apparent inflammatory changes of the hollow viscus could also be due to portal hypertensive enterocolopathy. Inflammatory changes of the urinary bladder may be due to cystitis Electronically signed by Ruslan Pacheco 02-21-2025 5:02 PM Chest X-Ray 02/27/25 16:01 Chest radiograph, one view History: Chest pain Comparison: None Findings: Single AP view of the chest performed. No focal consolidation or pleural effusion. No pneumothorax. Right chest wall port with catheter tip at the mid SVC. The cardiomediastinal silhouette is within normal limits. Normal pulmonary vascularity. No evidence for lymphadenopathy. No visualized bony or soft tissue abnormality. Impression: Normal chest radiograph Electronically signed by Harley Mcneal 02-27-2025 4:38 PM Medications Administered Current Inpatient Medications Al Hydrox/Mg Hydrox/Simethicone (Aluminum/Magnesium Susp 30 Ml Udc) 15 ml PO Q6H MIN Stop: 03/17/25 08:14 Last Admin: 02/27/25 14:31 Dose: 15 ml Diphenhydramine HCl (Diphenhydramine 50 Mg/Ml Vial) 25 mg IV HS PRN PRN Reason: insomnia Stop: 03/25/25 19:25 Last Admin: 02/26/25 20:58 Dose: 25 mg Diphenoxylate HCl/Atropine (Diphenoxylate/Atropine 2.5/0.025mg Tab) 1 tab PO Q6H PRN PRN Reason: Diarrhea Stop: 03/14/25 02:50 Last Admin: 02/26/25 17:17 Dose: 1 tab Escitalopram Oxalate (Escitalopram Oxalate 10 Mg Tab) 10 mg PO HS MIN Stop: 03/14/25 20:59 Last Admin: 02/26/25 20:59 Dose: 10 mg Fentanyl (Fentanyl 25 Mcg/Hr Tdsy) 1 patch TD Q3D@0900 MIN Stop: 03/02/25 08:59 Last Admin: 02/27/25 09:03 Dose: 1 patch Fentanyl (Fentanyl 25 Mcg/Hr Tdsy) 1 patch TD Q3D MIN Stop: 03/02/25 08:59 Last Admin: 02/27/25 14:29 Dose: 1 patch Fentanyl (Fentanyl 50 Mcg/Hr Tdsy) 1 patch TD Q3D MIN Stop: 03/16/25 08:59 Gabapentin (Gabapentin 100 Mg Cap) 100 mg PO HS MIN Stop: 03/26/25 20:59 Last Admin: 02/26/25 20:59 Dose: 100 mg Heparin Sodium (Porcine) (Heparin 100 Unit/Ml 5ml Flush) 5 ml FLUSH PRN PRN PRN Reason: Flush Stop: 03/14/25 06:49 Hyoscyamine (Hyoscyamine Sulfate 0.125 Mg Tab) 0.125 mg SL Q4H PRN PRN Reason: Cramping Stop: 03/16/25 09:22 Last Admin: 02/14/25 10:07 Dose: 0.125 mg Famotidine (Pepcid 20mg Iv Push) 20 mg in 5 mls @ 2.5 mls/min IV Q12H MIN Stop: 03/25/25 20:59 Last Admin: 02/27/25 11:54 Dose: 2.5 mls/min Pantoprazole Sodium (Protonix) 40 mg in 10 mls @ 5 mls/min IV BID MIN Stop: 03/26/25 08:59 Last Admin: 02/27/25 08:54 Dose: 5 mls/min Prochlorperazine 10 mg/ (Syringe) 10 mls @ 5 mls/min IV Q6H MIN Stop: 03/27/25 00:00 Last Admin: 02/27/25 12:12 Dose: 5 mls/min Amino Acids/Dextrose 1,368 ml/ (Nutrition (Parenteral)) 1,368 mls @ 57 mls/hr IV .Q24H MIN; Protocol Stop: 02/28/25 15:59 Fat Emulsion-[place] Oil/Soybean Oil (Clinolipid 20% Iv Fat Emulsion) 250 mls @ 20.833 mls/hr IV .Q12H MIN Stop: 02/28/25 03:59 Piperacillin Sod/Tazobactam Sod (Zosyn) 4.5 gm in 100 mls @ 25 mls/hr IV Q8H MIN; Protocol Stop: 03/01/25 21:59 Lorazepam (Lorazepam 0.5 Mg Tab) 0.5 mg SL Q4H PRN PRN Reason: Agitation Stop: 03/26/25 10:20 Last Admin: 02/27/25 10:45 Dose: 0.5 mg Melatonin (Melatonin 3 Mg Tab) 3 mg PO HS COUNTS INCLUDE 234 BEDS AT THE [facility] Stop: 03/22/25 20:59 Last Admin: 02/26/25 21:00 Dose: Not Given Miscellaneous (Stop Clinolipid) 1 each N/A TODAY@04 COUNTS INCLUDE 234 BEDS AT THE [facility] Stop: 03/20/25 03:59 Last Admin: 02/27/25 05:09 Dose: 1 each Miscellaneous (Fentanyl Patch Remove & Waste) 1 each N/A Q3D COUNTS INCLUDE 234 BEDS AT THE [facility] Stop: 04/01/25 08:59 Miscellaneous (Check Fentanyl Patch Placement) 1 each N/A QS COUNTS INCLUDE 234 BEDS AT THE [facility] Stop: 03/29/25 15:59 Miscellaneous Information (Tpn/Ppn Consult Pharmacy) 1 each N/A UD PRN PRN Reason: Consult Stop: 03/18/25 09:00 Morphine Sulfate (Morphine Sulfate 10 Mg/0.5 Ml Udp) 10 mg PO Q3H PRN PRN Reason: Breakthrough Pain Stop: 03/10/25 10:26 Last Admin: 02/24/25 15:28 Dose: 10 mg Morphine Sulfate (Morphine Sulfate 4 Mg/Ml 1 Ml Carp\Vial) 4 mg IV Q3H PRN PRN Reason: Breakthrough Pain Stop: 03/12/25 03:15 Last Admin: 02/27/25 14:13 Dose: 4 mg Neomycin/Polymyxin/Bacitracin (Neomycin/Polymyx/Bacitr Oint 15 Gm Tube) 1 appln EXT Q48H PRN PRN Reason: Consult Stop: 03/21/25 16:11 Olanzapine (Olanzapine Zydis 10 Mg Orally Dis. Tab) 10 mg PO Q12H PRN PRN Reason: nausea Stop: 03/25/25 11:43 Last Admin: 02/26/25 20:58 Dose: 10 mg Ondansetron HCl (Ondansetron 8mg Od Tab) 8 mg PO Q6H COUNTS INCLUDE 234 BEDS AT THE [facility] Stop: 03/29/25 14:59 Last Admin: 02/27/25 15:04 Dose: 8 mg Simethicone (Simethicone 80 Mg Chew) 160 mg PO Q6H PRN PRN Reason: gastric distention Stop: 03/19/25 17:29 Sucralfate (Sucralfate 1 Gm/10 Ml Udc) 1 gm PO QID MIN Stop: 03/15/25 19:14 Last Admin: 02/27/25 12:13 Dose: 1 gm PG Care Time/CCT Total # of Minutes Spent Total Time Spent with Patient: Total time spent is greater than 50% in coordination of care (as documented) at patient's floor/unit and/or counseling patient: C[place] [address] SUB INP/OBS CARE 3/50MIN Patient Type Established History Expanded Problem Focused Exam Expanded Problem Focused Medical Decision Making High Complexity Diagnoses Refractory nausea and vomiting R11.2 Palliative care by specialist Z51.5 Cancer related pain G89.3 Lethargy R53.83
[2025-02-27] MEDS: ONDANSETRON 8MG OD TAB PO SCH (15:04)
--- NOTE | 2025-02-27 16:24 | Hospitalist Progress Note ---
Date of Service February 27, 2025 Assessment & Plan (1) Vomiting: (2) Metastatic disease: (3) Thrombocytopenia: (4) Gastric outlet obstruction: (5) Refractory nausea and vomiting: (6) Cancer related pain: (7) Hypokalemia due to excessive gastrointestinal loss of potassium: (8) Metabolic alkalosis: Plan 34yo female with history of metastatic breast cancer (lesions to spine, lung, liver, brain) presenting with multiple episodes of vomiting with hematemesis prior to arrival. Patient has had hematemesis on several occasions necessitating hospital admission. 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 CXR and UA. If ongoing fevers will consider CT C/A/P with IV contrast to assess for source. #Metastatic breast cancer / malignant gastric outlet obstruction / hematemesis / gastritis / chemotherapy induced neutropenia (now resolved) she set to begin radiation therapy treatment on 02/20/2025 -After discussion with oncology both here and [place] there are no further chemotherapy options for her given her GOO and bone marrow involvement -Finished radiation to abdomen 02/23 which likely will help hematemesis but less likely to help gastric outlet obstruction. Started radiation to breast 02/27 for pain. -Continue Carafate, PPI, Pepcid, TPN -TPN - planning on additional potassium given loss with vomiting. Additional IV 40 meq KCl replacement ordered today -Anatomical options to help vomiting are limited due to thrombocytopenia, should plt > 50 we can discuss possible venting g-tube placement again but I think this is unlikely at this stage give persistently low platelets and lack of transfusion responsiveness. The less she takes orally the less she will vomit (she is aware of this) but given goal is mainly for comfort I will leave it up to her if she wish to keep drinking small amounts of Gatorade but should still be on just sips and chips. We will continue on ondansetron and Compazine for nausea but there isn't any medications that will stop the vomiting since there is nowhere for her gastric secretions to go. -Current plan is to try and discharge home with mostly what she has been getting in hospital - IV pantoprazole and famotidine can probably be given through TPN #Anemia Secondary to hematemesis + bone marrow infiltration of cancer. Hgb 9.6, repeat with AM labs Perhaps she can also get CBC every few weeks for possible blood transfusions if otherwise doing well as she has little ability to produce her own blood at this stage #Thrombocytopenia INR normal. Secondary to metastatic bone marrow involvement and unlikely to improve. Platelet transfusion 02/23 due to hematemesis but unless she continues to bleed no indication for continued platelet transfusions. If further hematemesis recommend platelet transfusion. #Cancer related pain Appreciate management of this from palliative care - Fentanyl patch started 02/22, increased to 50 mcg today I think we can stop gabapentin as unlikely any benefit #Ingrown toenail s/p bedside procedure by podiatry on 02/17, healing well #Anxiety -Lorazepam IV PRN -Continue Escitalopram #VTE Prophylaxis - SCDs and JAMES stockings, encourage ambulation #Disposition - stable for downgrade to med/surg if suitable room can be found Admission and Anticipated Discharge Date Admission Date: February 12, 2025 Subjective Bleeding from breast this morning. Otherwise she feels like her normal self. No cough, urinary symptoms, fever, chills. Mucus BM have not changed. Fever occurred in the afternoon but she reports no chills and does not feel this. Physical Exam Respiratory: normal respiratory effort, lungs clear to auscultation Cardiovascular: RRR, no murmur, no edema Chest (Breasts): Additional Comments: Coagulated blood over left nipple, no surrounding cellulitic changes Results & Data Results & Data Vital Signs (Past 12 Hours) Vital Signs Temp Pulse Resp BP Pulse Ox O2 Del Method 02/27/25 15:44 38.0 C H 109 H 18 112/77 92 Room Air 02/27/25 07:36 37.7 C H 112 H 16 112/77 93 Room Air PG Care Time/CCT Total # of Minutes Spent Total Time Spent with Patient: Total time spent is greater than 50% in coordination of care (as documented) at patient's floor/unit and/or counseling patient: Coding Level of Care Code 96302 SUB INP/OBS CARE 3/50MIN Diagnoses Vomiting R11.10 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
--- NOTE | 2025-02-27 16:39 | XRay Report ---
Chest radiograph, one view History: Chest pain Comparison: None Findings: Single AP view of the chest performed. No focal consolidation or pleural effusion. No pneumothorax. Right chest wall port with catheter tip at the mid SVC. The cardiomediastinal silhouette is within normal limits. Normal pulmonary vascularity. No evidence for lymphadenopathy. No visualized bony or soft tissue abnormality. Impression: Normal chest radiograph Electronically signed by Harley Mcneal 02-27-2025 4:38 PM
[2025-02-27] MEDS: 4.5GM X1 IV STA (17:42)
[2025-02-27] MEDS: CENTRAL TPN IV SCH (17:50)
[2025-02-27] MEDS: [UNRECOGNIZED DRUG - OTHER] IV SCH (17:50)
[2025-02-27] MEDS: CLINOLIPID 20% IV FAT EMULSION 250 ML IV SCH (17:50)
[2025-02-27] MEDS ORDERED: ONDANSETRON 8MG OD TAB PO SCH (18:30)
[2025-02-27] MEDS ORDERED: VANCOMYCIN CONSULT ACTIVE PRN (19:04)
--- NOTE | 2025-02-27 19:36 | Pharmacy Report ---
Pharmacy PK ABX Note - Date of Service February 27, 2025 - Assessment and Plan Assessment 34 year old F receiving vancomycin and piperacillin/tazobactam for treatment of sepsis rule out/neutropenic fever. Pertinent microbiologic data includes: blood cultures x3 pending (2 peripheral, 1 from port). * Febrile to 39.4 this evening * WBC 1.72, ANC 1.25 today * TPN Day # 1 of antimicrobial therapy. Plan Vancomycin * Loading dose: 1250 mg IV x 1 * Maintenance dose: 1000 mg IV every 8 hours * Regimen is predicted to achieve target AUC/IFRAH of 400-600 mg/L.hr * Trough level ordered for: 03/01/25 @0300 Pharmacy will continue to follow and will adjust dose/frequency as necessary. Thank you. Pharmacy has transitioned to AUC monitoring for vancomycin. AUC/IFRAH is the preferred PK/PD target and is associated with decreased risk of nephrotoxicity compared to traditional trough targets.
[2025-02-27] MEDS: OPTIRAY 320 100ml IV ONE (20:09)
[2025-02-27] MEDS: LACTATED RINGER'S 1,000 ML IV ONE (20:41)
[2025-02-27 21:07] LABS: Base Excess VBG -3.2 mEq/L; HCO3 VBG 20 mmol/L; Oxygen Saturation VBG 83.9 %; PCO2 VBG 29 mmHg (38-50); PO2 VBG 48 mmHg; pH VBG 7.44 (7.36-7.41)
[2025-02-27 21:21] LABS: Hematocrit (blood only) 26.2 % (37.0-47.0); Hemoglobin 8.8 g/dl (12.0-16.0); Mean Corpuscular Hemoglobin 29.5 pg (25.0-34.0); Mean Corpuscular Volume 87.9 fL (80.0-100.0); Platelet Count 6 K/uL (130-400); RDW Standard Deviation 52.2 fL (36.4-46.3); Red Blood Count 2.98 M/uL (4.20-5.40)
[2025-02-27 21:30] LABS: Alanine Aminotransferase 37.0 U/L (7-52); Albumin Globulin Ratio 1.2 (0.9-2); Albumin Level 2.7 gm/dl (3.4-5.0); Alkaline Phosphatase 100.0 U/L (34-104); Anion Gap 6.0 (3-11); Bilirubin,Total 1.6 mg/dl (0.2-1.0); Blood Urea Nitrogen 16.0 mg/dl (6-23); Calcium 8.0 mg/dl (8.6-10.3); Carbon Dioxide 22.0 mmol/L (21-32); Chloride 106.0 mmol/L (98-107); Creatinine Clr Calc Pharmacy 133.8 ml/min; Globulin 2.2 gm/dl (2.5-4.0); Glucose 102.0 mg/dl (70-99(Fasting)); Potassium 3.4 mmol/L (3.5-5.1); Sodium 134.0 mmol/L (136-145); Total Protein 4.9 gm/dl (6.0-8.3)
[2025-02-27] MEDS: VANCOMYCIN HCL 1,250 MG in SODIUM CHLORIDE 0.9% 500 ML IV ONE (21:45)
[2025-02-27] MEDS ORDERED: Nursing to Pharmacy Communication SCH (21:45)
[2025-02-27] MEDS: PIPERACILLIN/TAZOBACTAM 4.5 GM/100 ML BAG IV SCH (22:15)
--- NOTE | 2025-02-27 22:19 | CT Scan Report ---
Exam(s): CT ABDOMEN + PELVIS With Contrast IV Amt: 90 ml optiray 320 EXAM: CT Abdomen and Pelvis With Intravenous Contrast CLINICAL HISTORY: sepsis. TECHNIQUE: Axial computed tomography images of the abdomen and pelvis with intravenous contrast. CTDI is 48.77 mGy and DLP is 1837.25 mGy-cm. Automated exposure control was utilized for the study. A dose lowering technique was utilized adhering to the principles of ALARA. CONTRAST: Patient received 90 ml optiray 320 of IV contrast COMPARISON: CT abdomen with and without contrast 02/21/2025 FINDINGS: Lung bases: Unremarkable. No mass. No consolidation. Pleural space: Small volume left pleural effusion again noted layering posteriorly. ABDOMEN: Liver: Extensive diffuse metastatic disease throughout the liver appears questionably minimally progressive despite relative short time interval. Gallbladder and bile ducts: The gallbladder is not clearly delineated, similar to the previous examination. No biliary dilatation. Pancreas: Unremarkable. No mass. No ductal dilation. Spleen: Splenomegaly. Adrenals: Unremarkable. No mass. Kidneys and ureters: Unremarkable. No solid mass. No hydronephrosis. Stomach and bowel: No evidence for focal high-grade small bowel obstruction. There is prominent fluid throughout the colon with hyperenhancing mucosal appearance of the distal rectosigmoid. There less prominent changes near the splenic flexure. There is asymmetric wall thickening involving the distal body and pyloric channel of the stomach which abuts the metastatic disease in segment 4B of the liver. No clear fat plane noted between the anterior margin of the pylorus in the liver. PELVIS: Appendix: The appendix is not clearly delineated. No secondary findings to suggest acute appendicitis. Bladder: Unremarkable. No mass. Reproductive: Unremarkable as visualized. ABDOMEN and PELVIS: Intraperitoneal space: Mild free fluid throughout the abdomen and pelvis, increased in volume from the previous examination. No loculation. The previously noted omental soft tissue implants are again noted. No free air. Bones/joints: Extensive osseous sclerotic metastatic disease throughout the lumbar spine, the sternum, the pelvic bones and the proximal femurs. No pathologic fractures. No dislocation. Soft tissues: The left breast mass appears similar to increased from the previous examination, now measuring 6.3 x 7.1 cm from 5.6 x 6.8 cm, with more prominent overlying dermal thickening. Vasculature: Unremarkable. No abdominal aortic aneurysm. Lymph nodes: No alteration in the abdominal, retroperitoneal and pelvic lymph nodes. No interval developing lymphadenopathy. IMPRESSION: 1. No evidence for focal high-grade small bowel obstruction. There is prominent fluid throughout the colon with hyperenhancing mucosal appearance of the distal rectosigmoid. There less prominent changes near the splenic flexure. The appearance is markedly progressive from the previous examination. Findings suggest colitis with diarrheal disease. Given the adjacent extensive disease involving the liver, subtle metastatic disease to the splenic flexure is difficult to exclude. However, no evidence for colonic obstruction. 2. The left breast mass appears similar to minimally increased from the previous examination, now measuring 6.3 x 7.1 cm from 5.6 x 6.8 cm, with more prominent overlying dermal thickening. Suspect primary breast neoplasm. 3. Extensive diffuse metastatic disease throughout the liver appears questionably minimally progressive despite relative short time interval. 4. Mild free fluid throughout the abdomen and pelvis, increased in volume from the previous examination. No loculation. This may be reactive from the hepatic metastatic disease or represent developing hepatic insufficiency given extensive diffuse hepatic metastatic involvement. 5. There is asymmetric wall thickening involving the distal body and pyloric channel of the stomach which abuts the metastatic disease in segment 4B of the liver. No clear fat plane noted between the anterior margin of the pylorus in the liver. Developing invasion of the distal stomach is not excluded, as reported previously. 6. Extensive osseous sclerotic metastatic disease throughout the lumbar spine, the sternum, the pelvic bones and the proximal femurs. No pathologic fractures. Electronically signed by: Romel Samuels MD 02/27/25 22:18 PM
--- NOTE | 2025-02-27 22:30 | CT Scan Report ---
Exam(s): CT CHEST W/WO Contrast IV Amt: 90 ml optiray 320 EXAM: CT Chest Without and With Intravenous Contrast CLINICAL HISTORY: new SOB. TECHNIQUE: Axial computed tomography images of the chest without and with intravenous contrast. CTDI is 48.47 mGy and DLP is 1837.25 mGy-cm. Automated exposure control was utilized for the study. A dose lowering technique was utilized adhering to the principles of ALARA. CONTRAST: Patient received 90 ml optiray 320 of IV contrast COMPARISON: CT chest 01/31/2025 FINDINGS: Limitations: There is diffuse respiratory artifact, which degrades image quality throughout the examination. Lungs: See below. Pleural space: There is a small volume layering hypodense left pleural effusion, increased when compared to the prior CT chest evaluation. No loculation. No pneumothorax. Heart: Unremarkable. No cardiomegaly. No significant pericardial effusion. No significant coronary artery calcifications. Mediastinum: No significant mediastinal or hilar adenopathy. Bones/joints: Accounting for diffuse respiratory artifact, there is no definite focal airspace consolidation with asymmetric ground-glass opacity in the superior segment of the right lower lobe posterior to the hilum. Diffuse sclerotic metastatic disease involving the osseous structures of the thorax is grossly stable from the previous examination. No pathologic fracture. Soft tissues: The abnormal enhancing mass involving the left breast is larger when compared to the previous examination, now measuring 6.4 x 6.6 cm from 5.2 x 5.2 cm with similar overlying dermal thickening. Vasculature: Unremarkable. No thoracic aortic aneurysm. Lymph nodes: There is a new left axillary lymph node measuring 1.7 cm. Tubes, lines and devices: A right internal jugular approach port a catheter is incompletely included with the tip in the superior vena cava. IMPRESSION: 1. The abnormal enhancing mass involving the left breast is larger when compared to the previous examination, now measuring 6.4 x 6.6 cm from 5.2 x 5.2 cm with similar overlying dermal thickening. There is new left axillary lymphadenopathy. 2. Small volume layering hypodense left pleural effusion, increased when compared to the prior CT chest evaluation. No loculation. 3. Accounting for diffuse respiratory artifact, there is no definite focal airspace consolidation with asymmetric ground-glass opacity in the superior segment of the right lower lobe posterior to the hilum. Favor atelectasis over atypical infection. No appreciable interstitial changes. 4. Diffuse sclerotic metastatic disease involving the osseous structures of the thorax is grossly stable from the previous examination. No pathologic fracture. Electronically signed by: Romel Samuels MD 02/27/25 22:29 PM
[2025-02-27 23:15] LABS: Dohle Bodies 1+; Immature Granulocytes # (auto) 0.02 K/uL (0.01-0.20); Immature Granulocytes % (auto) 2.3 %; Polychromasia 1+; Tear Drop Cells 1+; White Blood Count 0.87 K/ul (4.8-10.8)
[2025-02-28] MEDS: POTASSIUM CHLORIDE CRTAB 20 MEQ TABCR PO STA (00:03)
[2025-02-28] MEDS: SODIUM CHLORIDE 0.9% 500 ML IV ONE (01:15)
[2025-02-28] MEDS: POTASSIUM CHLORIDE / WTR 10 MEQ/100 ML PLCT IV SCH (02:50)
[2025-02-28] MEDS: SODIUM CHLORIDE 0.9% 500 ML IV SCH (02:51)
[2025-02-28] MEDS: LACTATED RINGER'S 1,000 ML IV ONE (03:11)
[2025-02-28 06:14] LABS: A calco-baum cmplx NotReported Not Detected (NotDetected); Bact fragilis Not Reported Not Detected (NotDetected); Blood Culture Id Panel See PCR Comment (NotDetected); C auris Not Reported Not Detected (NotDetected); Calbicans Not Reported Not Detected (NotDetected); Candida glabrata Not Reported DETECTED (NotDetected); Candida krusei Not Reported Not Detected (NotDetected); Cneoformans/gatti Not Reported Not Detected (NotDetected); Cparapsilosis Not Reported Not Detected (NotDetected); Ctropicalis Not Reported Not Detected (NotDetected); E cloacae compx Not Reported Not Detected (NotDetected); Efaecalis Not Reported Not Detected (NotDetected); Efaecium Not Reported Not Detected (NotDetected); Enterobacterales Not Reported Not Detected (NotDetected); Escherichia coli Not Reported Not Detected (NotDetected); H influenzae Not Reported Not Detected (NotDetected); K aerogenes Not Reported Not Detected (NotDetected); Koxytoca Not Reported Not Detected (NotDetected); Kpneumoniae grp Not Reported Not Detected (NotDetected); Lmonocyt Not Reported Not Detected (NotDetected); N meningitidis Not Reported Not Detected (NotDetected); P aeruginosa Not Reported Not Detected (NotDetected); Proteus spp Not Reported Not Detected (NotDetected); Salmonella spp Not Reported Not Detected (NotDetected); Staph lugdunensis Not Reported Not Detected (NotDetected); Staph spp. Not Reported Not Detected (NotDetected); Staphaureus Not Reported Not Detected (NotDetected); Staphepi Not Reported Not Detected (NotDetected); Stenmaltophilia Not Reported Not Detected (NotDetected); Strep agal(GrpB) Not Reported Not Detected (NotDetected); Strep pneum Not Reported Not Detected (NotDetected); Strep pyog (GrpA) Not Reported Not Detected (NotDetected); Strep spp Not Reported Not Detected (NotDetected)
[2025-02-28 06:31] LABS: Candida glabrata DETECTED (NotDetected)
[2025-02-28] MEDS: VANCOMYCIN HCL / NSS 1,000 MG/270 ML BAG IV SCH (06:44)
[2025-02-28 07:13] LABS: Anion Gap 6.0 (3-11); Blood Urea Nitrogen 15.0 mg/dl (6-23); Calcium 7.9 mg/dl (8.6-10.3); Carbon Dioxide 21.0 mmol/L (21-32); Chloride 107.0 mmol/L (98-107); Creatinine Clr Calc Pharmacy 144.3 ml/min; Glucose 107.0 mg/dl (70-99(Fasting)); Magnesium 1.8 mg/dl (1.7-2.4); Potassium 3.8 mmol/L (3.5-5.1); Sodium 134.0 mmol/L (136-145)
[2025-02-28 07:37] LABS: Anisocytosis Present; Dohle Bodies 1+; Hematocrit (blood only) 26.2 % (37.0-47.0); Hemoglobin 8.5 g/dl (12.0-16.0); Mean Corpuscular Hemoglobin 28.5 pg (25.0-34.0); Mean Corpuscular Volume 87.9 fL (80.0-100.0); Polychromasia 1+; RDW Standard Deviation 51.2 fL (36.4-46.3); Red Blood Count 2.98 M/uL (4.20-5.40); White Blood Count 1.11 K/ul (4.8-10.8)
[2025-02-28 07:38] LABS: Immature Granulocytes # (auto) 0.08 K/uL (0.01-0.20); Immature Granulocytes % (auto) 7.2 %; Platelet Count 6 K/uL (130-400)
[2025-02-28] MEDS ORDERED: Nursing to Pharmacy Communication SCH (08:15)
[2025-02-28] MEDS ORDERED: SODIUM CHLORIDE 0.9% 100 ML IV PRN ×2 (08:37→10:30)
[2025-02-28] MEDS: POTASSIUM CHLORIDE / WTR 10 MEQ/100 ML PLCT IV STA (08:37)
[2025-02-28] MEDS: OXYMETAZOLINE 0.05% 30 ML BTL ONE (09:03)
[2025-02-28] MEDS: CASPOFUNGIN 70 MG in SODIUM CHLORIDE 0.9% 250 ML IV ONE (09:16)
--- NOTE | 2025-02-28 12:18 | Electrocardiogram Report ---
Test Reason : Blood Pressure : */* mmHG Vent. Rate : 117 BPM Atrial Rate : 117 BPM P-R Int : 104 ms QRS Dur : 76 ms QT Int : 448 ms P-R-T Axes : * 8 75 degrees QTcB Int : 624 ms Sinus tachycardia with short [place] Low voltage QRS Prolonged QT Abnormal ECG When compared with ECG of 11-Feb-2025 22:32, NY interval has decreased Vent. rate has increased by 44 bpm Criteria for Inferior infarct are no longer Present Nonspecific T wave abnormality no longer evident in Inferior leads Confirmed by Hesham Johnston ([id number]) on 02/28/2025 12:18:09 PM Referred By: REFERRED SELF Confirmed By: Hesham Johnston
[2025-02-28] MEDS: NSS + 20MEQ KCL 20 MEQ/1,000 ML BAG IV SCH (14:14)
--- NOTE | 2025-02-28 14:45 | Palliative Family Discussion ---
Date of Service February 28, 2025 Patient Directed Conference Time of Meetin:30 - 10:30 Participants: Maria Eugenia Roldan AGACNP Patient participation: yes Patient Support System: spouse Other Healthcare Provider Participation: Dr. Sanchez Meeting Location: bedside Advanced Directive available: no If yes, descriptors: The patient's surrogate medical decision maker participated: spouse Austin Li Legally authorized health care proxy: n/a Other surrogate: n/a A family meeting was held for LUIS MANUEL LI. This meeting was necessary for determining the appropriate course of treatment. Topics of Discussion Topics of Discussion: 1. admission course, overall health and prognosis 2. comfort directed care 3. anticipatory guidance Other Content of Meetin. Opportunity given for participants to speak and ask questions. 2. Participants were assured of attention to patient comfort. 3. Reassurance provided. 4. Support was provided for informed, good-charity decisions. 5. Emotions expressed by family were acknowledged and addressed. 6. Follow-up Outpatient:n/a 7. Plan of Care: continue current level of care, pt awaiting arrival of parents p/t transition to comfort directed care. Met with patient and her spouse at bedside, Dr Sanchez was present for most of discussion. We discussed at length the patient's HPI/admission course, general prognosis, treatment options, and goals of care. Discussed feasibility of discharge to home with ongoing intractable N/V, persistent pain, fungal septicemia, and now epistaxis. Austin shared concern that he may not be able to provide the level of care Ophelia needs at home. He shared concern that she may not have the quality of time she has hoped for given her symptom burden and need for frequent medications for pain and nausea. We again discussed comfort driven care and that her intractable symptoms would likely qualify for GIP hospice. Ophelia shared that she is still hopeful that she will have a few weeks at home with her children and would rather have quality time at home than in hospital. We discussed her symptom burden and how symptom management might look at home. Encouraged Ophelia and Austin to share how they envision her care at home with the children. Ophelia shared that she does not want her children to associate home with "the place that mommy " and when she is close to the end she would rather be at the hospital. Austin asked for a timeline and expressed concern that even if she is able to go home, she would likely "develop a nose bleed or something else that would bounce her right back to the ED". Dr Sanchez shared a prognosis of likely days, possibly weeks. Austin reinforced his concern that Ophelia would be better managed in hospital with 24hr nursing care. Ophelia ultimately agreed that if she does not show improvement that might allow her to be home for a few weeks, she would be agreeable to evaluation for GIP. She expressed that what matters most is how her illness and will affect her children. Austin shared that there are family members that do not live locally and would want to spend time with Ophelia before she dies, and asked at what point he should tell them to travel in. I encouraged that he let family and friends know that time is short and encourage visitation. Expressed concern that as Ophelia's symptoms worsen, she may not be as lucid as she is today. They both express desire to continue on current course with ongoing TPN and ABX/antifungal medications with the hope to prolong her life long enough for distant family to arrive. They shared that they would like to revisit [facility] at that time, with expressed intent to transition to comfort care/hospice. Discussed hospice care: an interdisciplinary program offered by nurses, nurses aides, social workers, chaplains and a medical secretary teacher for patients with a terminal condition and a life expectancy of less than 6 months. The goal is assure quality of life of the patient in their home setting (home, penitentiary, inpatient hospice setting) by providing symptoms management, psychosocial and spiritual support. However, they cannot offer 24 hours care and if the family is unable to provide that care, they will have to consider personal care with out of pocket cost vs. penitentiary placement. We discussed the goals of hospice as a patient service and the goals of care; we discussed EOL trajectories and transitions rafa the emotional impact of realizing mortality as a concrete reality from prior abstract considerations. Pt was reassured that no matter where they are along this trajectory, they are not alone - their medical team will remain by their side through their journey. Discussed the pros/cons of accepting help when especially weakened and distressed by pain-which would also help provide relief/decrease caregiver burden/strain. The goal of comfort directed care is to assure a peaceful . Ophelia and Austin intend to meet with [employer] program and [employer] Service Technician, Rev Martha Morales today to begin working on legacy items. Time Involved in Meeting: I spent 70 minutes overall addressing this case: 10 in medical data review/discussion with referring provider(s) and/or preparation for the visit 40 in direct interaction with the patient and spouse 40 Advance Care Planning/Goals of Care discussions as detailed above in note (must be >16min) 10 in subsequent review and synthesis of assessment and plan 10 in communicating with other providers regarding the patient's case: BSRBhavesh, attending, , [facility] rep
[2025-02-28] MEDS: TXA 10% Non-IV Routes 100 MG/ML VIAL TOP ONE (15:16)
[2025-02-28] MEDS: D5NSS + 20MEQ KCL 20 MEQ/1,000 ML BAG IV SCH (16:03)
[2025-02-28 16:52] LABS: A calco-baum cmplx NotReported Not Detected (NotDetected); Bact fragilis Not Reported Not Detected (NotDetected); Blood Culture Id Panel See PCR Comment (NotDetected); C auris Not Reported Not Detected (NotDetected); Calbicans Not Reported Not Detected (NotDetected); Candida glabrata Not Reported DETECTED (NotDetected); Candida krusei Not Reported Not Detected (NotDetected); Cneoformans/gatti Not Reported Not Detected (NotDetected); Cparapsilosis Not Reported Not Detected (NotDetected); Ctropicalis Not Reported Not Detected (NotDetected); E cloacae compx Not Reported Not Detected (NotDetected); Efaecalis Not Reported Not Detected (NotDetected); Efaecium Not Reported Not Detected (NotDetected); Enterobacterales Not Reported Not Detected (NotDetected); Escherichia coli Not Reported Not Detected (NotDetected); H influenzae Not Reported Not Detected (NotDetected); K aerogenes Not Reported Not Detected (NotDetected); Koxytoca Not Reported Not Detected (NotDetected); Kpneumoniae grp Not Reported Not Detected (NotDetected); Lmonocyt Not Reported Not Detected (NotDetected); N meningitidis Not Reported Not Detected (NotDetected); P aeruginosa Not Reported Not Detected (NotDetected); Proteus spp Not Reported Not Detected (NotDetected); Salmonella spp Not Reported Not Detected (NotDetected); Staph lugdunensis Not Reported Not Detected (NotDetected); Staph spp. Not Reported DETECTED (NotDetected); Staphaureus Not Reported Not Detected (NotDetected); Staphepi Not Reported DETECTED (NotDetected); Stenmaltophilia Not Reported Not Detected (NotDetected); Strep agal(GrpB) Not Reported Not Detected (NotDetected); Strep pneum Not Reported Not Detected (NotDetected); Strep pyog (GrpA) Not Reported Not Detected (NotDetected); Strep spp Not Reported Not Detected (NotDetected); mecAC Resistant Gene Not Detected (NotDetected)
[2025-02-28 18:27] LABS: Staphylococcus epidermidis DETECTED (NotDetected); Staphylococcus spp. DETECTED (NotDetected)
[2025-02-28 18:28] LABS: Candida glabrata DETECTED (NotDetected)
[2025-02-28] MEDS ORDERED: ALUMINUM/MAGNESIUM SUSP 30 ML UDC PO PRN (20:00)
--- NOTE | 2025-02-28 20:02 | Hospitalist Progress Note ---
Date of Service February 28, 2025 Assessment & Plan (1) Vomiting: (2) Metastatic disease: (3) Thrombocytopenia: (4) Gastric outlet obstruction: (5) Refractory nausea and vomiting: (6) Cancer related pain: (7) Hypokalemia due to excessive gastrointestinal loss of potassium: (8) Metabolic alkalosis: Plan 34yo female with history of metastatic breast cancer (lesions to spine, lung, liver, brain) presenting with multiple episodes of vomiting with hematemesis prior to arrival. Patient has had hematemesis on several occasions necessitating hospital admission. 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 #Goals of care At this point I do not think she will ever be stable enough to leave hospital. Discussed with patient, and palliative care this morning. Family will be arriving to see her. Plan to switch to full comfort care once and patient are ready. Switch to GIP if possible. #Fever Binta growing from port, gram positive cocci growing from 1/2 peripheral bottles (?contaminant as growing staph epidermidis). Added caspofungin this morning and switched off TPN. No ability to remove port. Will switch to IV fluids through peripheral line. Discussed over the phone with infectious disease but I don't think a formal consult is required at this time. Will continue on antibiotics pending full culture results and family wishes. #Epistaxis Afrin nasal spray worked this morning with a platelet transfusion. Left tamponade rhino rocket at bedside if needed. Likely to recur with her thrombocytopenia #Metastatic breast cancer / malignant gastric outlet obstruction / hematemesis / gastritis -After discussion with oncology both here and [place] there are no further ch emotherapy options for her given her GOO and bone marrow involvement -Finished radiation to abdomen 02/23 which likely will help hematemesis but less likely to help gastric outlet obstruction. Started radiation to breast 02/27 for pain although she elected to stop this today 02/28. -Continue Carafate, PPI, Pepcid, TPN -Anatomical options to help vomiting are limited due to thrombocytopenia. The less she takes orally the less she will vomit (she is aware of this) but given goal is mainly for comfort I leave it up to her if she wish to keep drinking small amounts of Gatorade but should still be on just sips and chips. We will continue on ondansetron and Compazine for nausea but there isn't any medications that will stop the vomiting since there is nowhere for her gastric secretions to go. #Anemia Secondary to hematemesis + bone marrow infiltration of cancer. Total 4 units packed RBCs this admission. Hgb 8.5, I do not suspect she bled so much from the epistaxis that would warrant more blood at this time. #Thrombocytopenia / Neutropenia Neutropenic isolation precautions INR normal. Secondary to metastatic bone marrow involvement and unlikely to improve. Total 4 unit platelets this admission. Platelet transfusions PRN if she continues to bleed until switching to full comfort. #Cancer related pain Appreciate management of this from palliative care - Fentanyl patch started 02/22, increased to 50 mcg Morphine IV PRN #Ingrown toenail s/p bedside procedure by podiatry on 02/17, healing well #Anxiety -Lorazepam IV PRN -Continue Escitalopram #VTE Prophylaxis - SCDs and JAMES stockings, encourage ambulation #Disposition - continue on med/surg, do not change rooms, if getting significantly worse, call and switch to full comfort care Admission and Anticipated Discharge Date Admission Date: February 12, 2025 Subjective Fever started yesterday evening and overnight. Patient did not feel this. Most concerned about her epistaxis this morning. Seen with palliative care and planning on calling family to see her at this time. Physical Exam Constitutional: well developed; + not well nourished ENMT: Nose: + epistaxis (right nostril) Respiratory: normal respiratory effort, lungs clear to auscultation normal respiratory effort; no respiratory distress Cardiovascular: RRR, no murmur, no edema Rate/Rhythm: regular rate and regular rhythm Gastrointestinal (Abdomen): Inspection/Auscultation: abdomen normal to inspection; abdomen not distended Percussion/Palpation: + abdomen tender and abdomen soft Skin: breast not examined today but previously bleeding Results & Data Results & Data Vital Signs (Past 12 Hours) Vital Signs Temp Pulse Pulse Pulse Resp BP BP 02/28/25 16:20 37.6 C H 114 H 20 02/28/25 11:27 37.4 C 104 H 16 115/83 02/28/25 11:12 37.1 C 105 H 18 108/76 02/28/25 11:12 37.6 C H 107 H 16 103/74 02/28/25 10:50 37.7 C H 109 H 19 118/80 02/28/25 09:44 36.7 C 108 H 20 110/77 02/28/25 08:15 BP Pulse Ox O2 Del Method 02/28/25 16:20 125/87 93 02/28/25 11:27 92 02/28/25 11:12 95 02/28/25 11:12 92 02/28/25 10:50 96 02/28/25 09:44 95 Room Air 02/28/25 08:15 Room Air PG Care Time/CCT Total # of Minutes Spent Total Time Spent: 70 Total Time Spent with Patient: Total time spent is greater than 50% in coordination of care (as documented) at patient's floor/unit and/or counseling patient: Coding Level of Care Code 26315 SUB INP/OBS CARE 3/50MIN Diagnoses Vomiting R11.10 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
[2025-03-01] MEDS ORDERED: VANCOMYCIN LEVEL ONE (03:00)
[2025-03-01] MEDS: VANCOMYCIN LEVEL ONE (05:46)
[2025-03-01 06:29] LABS: Hematocrit (blood only) 23.1 % (37.0-47.0); Hemoglobin 7.8 g/dl (12.0-16.0); Mean Corpuscular Hemoglobin 29.2 pg (25.0-34.0); Mean Corpuscular Volume 86.5 fL (80.0-100.0); Platelet Count 12 K/uL (130-400); RDW Standard Deviation 51.5 fL (36.4-46.3); Red Blood Count 2.67 M/uL (4.20-5.40); White Blood Count 0.91 K/ul (4.8-10.8)
[2025-03-01 06:45] LABS: BldCult Id GramSt Discrep Comm Discrepant
[2025-03-01 07:16] LABS: Alanine Aminotransferase 39.0 U/L (7-52); Albumin Globulin Ratio 1.3 (0.9-2); Albumin Level 2.7 gm/dl (3.4-5.0); Alkaline Phosphatase 78.0 U/L (34-104); Anion Gap 6.0 (3-11); Bilirubin,Total 1.5 mg/dl (0.2-1.0); Blood Urea Nitrogen 13.0 mg/dl (6-23); Calcium 8.2 mg/dl (8.6-10.3); Carbon Dioxide 20.0 mmol/L (21-32); Chloride 108.0 mmol/L (98-107); Creatinine Clr Calc Pharmacy 118.5 ml/min; Globulin 2.1 gm/dl (2.5-4.0); Glucose 101.0 mg/dl (70-99(Fasting)); Potassium 2.9 mmol/L (3.5-5.1); Sodium 134.0 mmol/L (136-145); Total Protein 4.8 gm/dl (6.0-8.3)
--- NOTE | 2025-03-01 07:31 | Pharmacy Report ---
Pharmacy PK ABX Note - Date of Service March 01, 2025 - Assessment and Plan Assessment 03/01: * Vancomycin level came back at ~12.4 mcg/ml - current dosing for vancomycin appropriate and estimated to achieve goal AUC/IFRAH 400-600. Will continue same, awaiting further culture results. Continues on vancomycin/zosyn and caspofungin. 02/27: * 34 year old F receiving vancomycin and piperacillin/tazobactam for treatment of sepsis rule out/neutropenic fever. Pertinent microbiologic data includes: blood cultures x3 pending (2 peripheral, 1 from port). Plan Vancomycin * Continue 1000 mg iv q 8 hours Pharmacy will continue to follow and will adjust dose/frequency as necessary. Thank you. Pharmacy has transitioned to AUC monitoring for vancomycin. AUC/IFRAH is the preferred PK/PD target and is associated with decreased risk of nephrotoxicity compared to traditional trough targets.
[2025-03-01 08:23] LABS: Immature Granulocytes # (auto) 0.01 K/uL (0.01-0.20); Immature Granulocytes % (auto) 1.1 %
[2025-03-01] MEDS ORDERED: POTASSIUM CHLORIDE / WTR 20 MEQ/100 ML PLCT IV SCH (08:30)
[2025-03-01] MEDS: CASPOFUNGIN 50 MG in SODIUM CHLORIDE 0.9% 250 ML IV SCH (08:45)
[2025-03-01] MEDS: POTASSIUM CHLORIDE / WTR 10 MEQ/100 ML PLCT IV SCH (09:10)
--- NOTE | 2025-03-01 09:10 | Palliative Care Progress Note ---
Date of Service March 01, 2025 Assessment & Plan (1) Refractory nausea and vomiting: Plan: Pt c/o intractable N/V for about six weeks - constant nausea that frequently worsens causing emesis, but the underlying nausea has been constant and refractory to medications for several weeks. She previously has had 4mg of zofran which offers no relief. She reports relief from rotating zofran and compazine previously for nausea after cancer treatments, but this time nothing worked so she came to hospital. She shared that her nausea had improved and she was tolerating sips after 24hr of RTC alternating zofran/compazine, but it worsened and Zyprexa was added with marginal improvement of nausea. 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 Utility of venting NGT limited by recurrent epistaxis and thrombocytopenia. Discussed the difficulty in medical mgmt of mechanical obstruction. She shared that her nausea is much improved overnight and requests diet advanced to clears. She would like some broth and brazilian ice this morning. Continue Zyprexa 10mg ODT q12h PRN for refractory nausea Continue Zofran 8mg ODT q6hr MIN alternate zofran/compazine so one or other is given every three hours MIN until nausea relieved then PRN Continue Compazine 10mg PO q6hr MIN Continue Carafate, PPI, Pepcid, TPN; consider adding PPI, pepcid to TPN for ease of use at home. (2) Palliative care by specialist: Plan: Palliative care will continue to follow for ongoing symptom mgmt and patient/family support. (3) Cancer related pain: Plan: Pt c/o chronic aching type pain in thoracic-lumbar spinal area as well as chronic abdominal pain (sharp/gnawing pains in RUQ - occasionally radiates posteriorly around flank) that she relates to her metastatic cancer. She states that this pain bothers her less since admission and she attributes the reduction in pain to being mostly bed bound while hospitalized. She feels her back pain is much worse at home because she is caring for her young children. The back pain interferes with her living her life and performing iADLs for herself and her family. Although she does appear to be using her PRN morphine more frequently here, also contributing to her lower pain rating. She continues to require frequent PRN morphine for pain, but states that her pain may be slightly improved. She shared that her pain is currently 4::10, her self identified goal for appropriate pain mgmt is a 4. No changes in pain mgmt regime at this time. Continue: duragesic 50 Mcg/Hr 1 patch TD Q3D@0900 MIN Morphine 4mg IV Q3h PRN for BTP or Roxanol 10mg SL/PO Q3h PRN for BTP given ongoing N/V continue IV morphine for now, encouraged preference to PO/SL route if pt able to tolerate. Will not have access to IV morphine as a home medication per [facility] traveling sales representative. (4) Lethargy: Plan: improving (5) Counseling regarding goals of care: Plan: Met with Ophelia and her Austin for 30 minutes. Ophelia shared that she is still tired but is feeling better today. Ophelia and Austin both express relief of having family and especially their daughter aware of her prognosis. Austin shared that it is a relief to not have to hide it from family anymore. Ophelia shared that she again has an appetite since TPN has stopped. She is craving broth, and requested her diet be advanced. We again discussed pt's intractable symptoms as barrier to pt returning home. Ophelia and Austin both in agreement that home is no longer an option due to her intractable symptoms, however they questioned the appropriate time to transition to comfort directed care. Discussed current interventions and helped Ophelia and Austin understand that all treatments at this time are palliative in nature so the sum effect of adding hospice at this point would be to offer additional services for Ophelia and her family. Both agree that they would like to enroll with [facility] at this time. CM and attending made aware. Austin shared that their daughter will be coming back to the hospital this evening along with Rev Thomas to assist in working on some legacy items for the children. I assisted Ophelia in recording her heart beat and rhythm strip for this purpose. Plan as above Admission and Anticipated Discharge Date Admission Date: February 12, 2025 Subjective assessed pt at [facility], she was in NAD on NC. NAEON. pt states pain well managed and nausea under control with no additional emesis. She shared that since the TPN stopped, she is "starving" and requested broth and brazilian ice. Spouse at bedside. Review of Systems Review of Systems: All systems reviewed & are unremarkable except as noted in Subjective pt c/o ongoing N/V and abd pain as described below. Physical Exam Constitutional: WD/WN, vitals as above Eyes: PERRL, conjunctivae normal, anicteric sclerae ENMT: Ears: no hearing impairment Neck: trachea midline, no thyromegaly Respiratory: normal respiratory effort, lungs clear to auscultation Cardiovascular: RRR, no murmur, no edema Gastrointestinal (Abdomen): normal bowel sounds, soft, nontender, no hepatosplenomegaly Skin: no rashes, warm and dry + pallor Psychiatric: A+Ox3, euthymic affect Lymphatic: no cervical or axillary lymphadenopathy Results & Data Vital Signs (Past 12 Hours) Vital Signs Temp Pulse Resp BP BP Pulse Ox O2 Del Method 03/01/25 07:56 37 C 120 H 18 105/72 96 Nasal Cannula 02/28/25 22:04 37.3 C 113 H 16 110/80 92 Room Air 02/28/25 21:50 Room Air O2 Flow Rate 03/01/25 07:56 2 02/28/25 22:04 02/28/25 21:50 Laboratory Results Abnormal lab results 02/28/25 02/28/25 03/01/25 Range/Units 09:17 17:07 05:29 WBC 0.91 L* (4.8-10.8) K/ul RBC 2.67 L (4.20-5.40) M/uL Hgb 7.8 L (12.0-16.0) g/dl Hct 23.1 L (37.0-47.0) % RDW Std Deviation 51.5 H (36.4-46.3) fL RDW Coeff of Ara 18.1 H (11.5-14.5) % Plt Count 12 L* D (130-400) K/uL Neut # (Auto) 0.51 L* (1.40-6.50) K/uL Lymph # (Auto) 0.15 L (1.20-3.40) K/uL Sodium (136-145) mmol/L Potassium (3.5-5.1) mmol/L Chloride (98-107) mmol/L Carbon Dioxide (21-32) mmol/L BUN/Creatinine Ratio (10-20) Glucose (70-99(Fasting)) mg/dl Calcium (8.6-10.3) mg/dl Total Bilirubin (0.2-1.0) mg/dl AST (13-39) U/L Total Protein (6.0-8.3) gm/dl Albumin (3.4-5.0) gm/dl Globulin (2.5-4.0) gm/dl C. glabrata (PCR) DETECTED A (NotDetected) Staphylococcus sp PCR DETECTED A (NotDetected) Staph epidermidis (PCR) DETECTED A (NotDetected) Crossmatch See Detail 03/01/25 Range/Units 05:35 WBC (4.8-10.8) K/ul RBC (4.20-5.40) M/uL Hgb (12.0-16.0) g/dl Hct (37.0-47.0) % RDW Std Deviation (36.4-46.3) fL RDW Coeff of Ara (11.5-14.5) % Plt Count (130-400) K/uL Neut # (Auto) (1.40-6.50) K/uL Lymph # (Auto) (1.20-3.40) K/uL Sodium 134 L (136-145) mmol/L Potassium 2.9 L D (3.5-5.1) mmol/L Chloride 108 H (98-107) mmol/L Carbon Dioxide 20 L (21-32) mmol/L BUN/Creatinine Ratio 21.0 H (10-20) Glucose 101 H (70-99(Fasting)) mg/dl Calcium 8.2 L (8.6-10.3) mg/dl Total Bilirubin 1.5 H (0.2-1.0) mg/dl AST 95 H (13-39) U/L Total Protein 4.8 L (6.0-8.3) gm/dl Albumin 2.7 L (3.4-5.0) gm/dl Globulin 2.1 L (2.5-4.0) gm/dl C. glabrata (PCR) (NotDetected) Staphylococcus sp PCR (NotDetected) Staph epidermidis (PCR) (NotDetected) Crossmatch Diagnostic Findings KUB X-Ray 02/21/25 15:43 2 views of the abdomen were obtained Findings: The bowel gas pattern appears unremarkable. No renal or ureteral calculi are seen. No foreign body is evident. No osseous abnormality is seen Impression: Unremarkable abdominal radiographs Electronically signed by Nikita Monique 02-21-2025 4:32 PM Chest X-Ray 02/27/25 16:01 Chest radiograph, one view History: Chest pain Comparison: None Findings: Single AP view of the chest performed. No focal consolidation or pleural effusion. No pneumothorax. Right chest wall port with catheter tip at the mid SVC. The cardiomediastinal silhouette is within normal limits. Normal pulmonary vascularity. No evidence for lymphadenopathy. No visualized bony or soft tissue abnormality. Impression: Normal chest radiograph Electronically signed by Harley Mcneal 02-27-2025 4:38 PM Abdomen/Pelvis CT 02/27/25 19:35 Exam(s): CT ABDOMEN + PELVIS With Contrast IV Amt: 90 ml optiray 320 EXAM: CT Abdomen and Pelvis With Intravenous Contrast CLINICAL HISTORY: sepsis. TECHNIQUE: Axial computed tomography images of the abdomen and pelvis with intravenous contrast. CTDI is 48.77 mGy and DLP is 1837.25 mGy-cm. Automated exposure control was utilized for the study. A dose lowering technique was utilized adhering to the principles of ALARA. CONTRAST: Patient received 90 ml optiray 320 of IV contrast COMPARISON: CT abdomen with and without contrast 02/21/2025 FINDINGS: Lung bases: Unremarkable. No mass. No consolidation. Pleural space: Small volume left pleural effusion again noted layering posteriorly. ABDOMEN: Liver: Extensive diffuse metastatic disease throughout the liver appears questionably minimally progressive despite relative short time interval. Gallbladder and bile ducts: The gallbladder is not clearly delineated, similar to the previous examination. No biliary dilatation. Pancreas: Unremarkable. No mass. No ductal dilation. Spleen: Splenomegaly. Adrenals: Unremarkable. No mass. Kidneys and ureters: Unremarkable. No solid mass. No hydronephrosis. Stomach and bowel: No evidence for focal high-grade small bowel obstruction. There is prominent fluid throughout the colon with hyperenhancing mucosal appearance of the distal rectosigmoid. There less prominent changes near the splenic flexure. There is asymmetric wall thickening involving the distal body and pyloric channel of the stomach which abuts the metastatic disease in segment 4B of the liver. No clear fat plane noted between the anterior margin of the pylorus in the liver. PELVIS: Appendix: The appendix is not clearly delineated. No secondary findings to suggest acute appendicitis. Bladder: Unremarkable. No mass. Reproductive: Unremarkable as visualized. ABDOMEN and PELVIS: Intraperitoneal space: Mild free fluid throughout the abdomen and pelvis, increased in volume from the previous examination. No loculation. The previously noted omental soft tissue implants are again noted. No free air. Bones/joints: Extensive osseous sclerotic metastatic disease throughout the lumbar spine, the sternum, the pelvic bones and the proximal femurs. No pathologic fractures. No dislocation. Soft tissues: The left breast mass appears similar to increased from the previous examination, now measuring 6.3 x 7.1 cm from 5.6 x 6.8 cm, with more prominent overlying dermal thickening. Vasculature: Unremarkable. No abdominal aortic aneurysm. Lymph nodes: No alteration in the abdominal, retroperitoneal and pelvic lymph nodes. No interval developing lymphadenopathy. IMPRESSION: 1. No evidence for focal high-grade small bowel obstruction. There is prominent fluid throughout the colon with hyperenhancing mucosal appearance of the distal rectosigmoid. There less prominent changes near the splenic flexure. The appearance is markedly progressive from the previous examination. Findings suggest colitis with diarrheal disease. Given the adjacent extensive disease involving the liver, subtle metastatic disease to the splenic flexure is difficult to exclude. However, no evidence for colonic obstruction. 2. The left breast mass appears similar to minimally increased from the previous examination, now measuring 6.3 x 7.1 cm from 5.6 x 6.8 cm, with more prominent overlying dermal thickening. Suspect primary breast neoplasm. 3. Extensive diffuse metastatic disease throughout the liver appears questionably minimally progressive despite relative short time interval. 4. Mild free fluid throughout the abdomen and pelvis, increased in volume from the previous examination. No loculation. This may be reactive from the hepatic metastatic disease or represent developing hepatic insufficiency given extensive diffuse hepatic metastatic involvement. 5. There is asymmetric wall thickening involving the distal body and pyloric channel of the stomach which abuts the metastatic disease in segment 4B of the liver. No clear fat plane noted between the anterior margin of the pylorus in the liver. Developing invasion of the distal stomach is not excluded, as reported previously. 6. Extensive osseous sclerotic metastatic disease throughout the lumbar spine, the sternum, the pelvic bones and the proximal femurs. No pathologic fractures. Electronically signed by: Romel Samuels MD 02/27/25 22:[address] 02/27/25 19:35 Exam(s): CT CHEST W/WO Contrast IV Amt: 90 ml optiray 320 EXAM: CT Chest Without and With Intravenous Contrast CLINICAL HISTORY: new SOB. TECHNIQUE: Axial computed tomography images of the chest without and with intravenous contrast. CTDI is 48.47 mGy and DLP is 1837.25 mGy-cm. Automated exposure control was utilized for the study. A dose lowering technique was utilized adhering to the principles of ALARA. CONTRAST: Patient received 90 ml optiray 320 of IV contrast COMPARISON: CT chest 01/31/2025 FINDINGS: Limitations: There is diffuse respiratory artifact, which degrades image quality throughout the examination. Lungs: See below. Pleural space: There is a small volume layering hypodense left pleural effusion, increased when compared to the prior CT chest evaluation. No loculation. No pneumothorax. Heart: Unremarkable. No cardiomegaly. No significant pericardial effusion. No significant coronary artery calcifications. Mediastinum: No significant mediastinal or hilar adenopathy. Bones/joints: Accounting for diffuse respiratory artifact, there is no definite focal airspace consolidation with asymmetric ground-glass opacity in the superior segment of the right lower lobe posterior to the hilum. Diffuse sclerotic metastatic disease involving the osseous structures of the thorax is grossly stable from the previous examination. No pathologic fracture. Soft tissues: The abnormal enhancing mass involving the left breast is larger when compared to the previous examination, now measuring 6.4 x 6.6 cm from 5.2 x 5.2 cm with similar overlying dermal thickening. Vasculature: Unremarkable. No thoracic aortic aneurysm. Lymph nodes: There is a new left axillary lymph node measuring 1.7 cm. Tubes, lines and devices: A right internal jugular approach port a catheter is incompletely included with the tip in the superior vena cava. IMPRESSION: 1. The abnormal enhancing mass involving the left breast is larger when compared to the previous examination, now measuring 6.4 x 6.6 cm from 5.2 x 5.2 cm with similar overlying dermal thickening. There is new left axillary lymphadenopathy. 2. Small volume layering hypodense left pleural effusion, increased when compared to the prior CT chest evaluation. No loculation. 3. Accounting for diffuse respiratory artifact, there is no definite focal airspace consolidation with asymmetric ground-glass opacity in the superior segment of the right lower lobe posterior to the hilum. Favor atelectasis over atypical infection. No appreciable interstitial changes. 4. Diffuse sclerotic metastatic disease involving the osseous structures of the thorax is grossly stable from the previous examination. No pathologic fracture. Electronically signed by: Romel Samuels MD 02/27/25 22:29 PM Medications Administered Current Inpatient Medications Al Hydrox/Mg Hydrox/Simethicone (Aluminum/Magnesium Susp 30 Ml Udc) 15 ml PO Q6H PRN PRN Reason: GERD Stop: 03/17/25 08:14 Diphenhydramine HCl (Diphenhydramine 50 Mg/Ml Vial) 25 mg IV HS PRN PRN Reason: insomnia Stop: 03/25/25 19:25 Last Admin: 02/28/25 21:56 Dose: 25 mg Diphenoxylate HCl/Atropine (Diphenoxylate/Atropine 2.5/0.025mg Tab) 1 tab PO Q6H PRN PRN Reason: Diarrhea Stop: 03/14/25 02:50 Last Admin: 02/26/25 17:17 Dose: 1 tab Escitalopram Oxalate (Escitalopram Oxalate 10 Mg Tab) 10 mg PO HS MIN Stop: 03/14/25 20:59 Last Admin: 02/28/25 21:53 Dose: 10 mg Fentanyl (Fentanyl 25 Mcg/Hr Tdsy) 1 patch TD Q3D@0900 MIN Stop: 03/02/25 08:59 Last Admin: 02/27/25 09:03 Dose: 1 patch Fentanyl (Fentanyl 25 Mcg/Hr Tdsy) 1 patch TD Q3D MIN Stop: 03/02/25 08:59 Last Admin: 02/27/25 14:29 Dose: 1 patch Fentanyl (Fentanyl 50 Mcg/Hr Tdsy) 1 patch TD Q3D MIN Stop: 03/16/25 08:59 Heparin Sodium (Porcine) (Heparin 100 Unit/Ml 5ml Flush) 5 ml FLUSH PRN PRN PRN Reason: Flush Stop: 03/14/25 06:49 Hyoscyamine (Hyoscyamine Sulfate 0.125 Mg Tab) 0.125 mg SL Q4H PRN PRN Reason: Cramping Stop: 03/16/25 09:22 Last Admin: 02/14/25 10:07 Dose: 0.125 mg Famotidine (Pepcid 20mg Iv Push) 20 mg in 5 mls @ 2.5 mls/min IV Q12H MIN Stop: 03/25/25 20:59 Last Admin: 03/01/25 08:46 Dose: 2.5 mls/min Pantoprazole Sodium (Protonix) 40 mg in 10 mls @ 5 mls/min IV BID [facility] Stop: 03/26/25 08:59 Last Admin: 03/01/25 08:45 Dose: 5 mls/min Prochlorperazine 10 mg/ (Syringe) 10 mls @ 5 mls/min IV Q6H [facility] Stop: 03/27/25 00:00 Last Admin: 03/01/25 05:28 Dose: 5 mls/min Piperacillin Sod/Tazobactam Sod (Zosyn) 4.5 gm in 100 mls @ 25 mls/hr IV Q8H [facility]; Protocol Stop: 03/01/25 21:59 Last Infusion: 03/01/25 08:43 Dose: Infused Vancomycin HCl (Vancomycin Hcl / Nss) 1,000 mg in 270 mls @ 200 mls/hr IV Q8H [facility] Stop: 03/02/25 03:59 Last Infusion: 03/01/25 07:15 Dose: Infused Caspofungin 50 mg/ Sodium (Chloride) 260 mls @ 250 mls/hr IV Q24H [facility]; Protocol Stop: 03/11/25 08:59 Last Admin: 03/01/25 08:45 Dose: 250 mls/hr Potassium Chloride/Dextrose/Sod Cl (D5nss + 20meq Kcl) 20 meq in 1,000 mls @ 100 mls/hr IV .Q10H [facility] Stop: 03/03/25 14:14 Last Admin: 03/01/25 02:05 Dose: 100 mls/hr Potassium Chloride (K Luiz / Wtr) 10 meq in 100 mls @ 100 mls/hr IV Q1H [facility] Stop: 03/01/25 12:44 Lorazepam (Lorazepam 0.5 Mg Tab) 0.5 mg SL Q4H PRN PRN Reason: Agitation Stop: 03/26/25 10:20 Last Admin: 03/01/25 07:40 Dose: 0.5 mg Melatonin (Melatonin 3 Mg Tab) 3 mg PO HS [facility] Stop: 03/22/25 20:59 Last Admin: 02/28/25 21:52 Dose: Not Given Miscellaneous (Fentanyl Patch Remove & Waste) 1 each N/A Q3D [facility] Stop: 04/01/25 08:59 Miscellaneous (Check Fentanyl Patch Placement) 1 each N/A QS MIN Stop: 03/29/25 15:59 Last Admin: 03/01/25 07:42 Dose: 1 each Miscellaneous Information (Vancomycin Consult Active) 1 each N/A UD PRN PRN Reason: Consult Stop: 03/29/25 19:03 Morphine Sulfate (Morphine Sulfate 10 Mg/0.5 Ml Udp) 10 mg PO Q3H PRN PRN Reason: Breakthrough Pain Stop: 03/10/25 10:26 Last Admin: 02/24/25 15:28 Dose: 10 mg Morphine Sulfate (Morphine Sulfate 4 Mg/Ml 1 Ml Carp\\Vial) 4 mg IV Q3H PRN PRN Reason: Breakthrough Pain Stop: 03/12/25 03:15 Last Admin: 02/28/25 19:58 Dose: 4 mg Neomycin/Polymyxin/Bacitracin (Neomycin/Polymyx/Bacitr Oint 15 Gm Tube) 1 appln EXT Q48H PRN PRN Reason: Consult Stop: 03/21/25 16:11 Olanzapine (Olanzapine Zydis 10 Mg Orally Dis. Tab) 10 mg PO Q12H PRN PRN Reason: nausea Stop: 03/25/25 11:43 Last Admin: 02/28/25 21:54 Dose: 10 mg Ondansetron HCl (Ondansetron 8mg Od Tab) 8 mg PO Q6H MIN Stop: 03/29/25 14:59 Last Admin: 03/01/25 07:41 Dose: 8 mg Simethicone (Simethicone 80 Mg Chew) 160 mg PO Q6H PRN PRN Reason: gastric distention Stop: 03/19/25 17:29 Sucralfate (Sucralfate 1 Gm/10 Ml Udc) 1 gm PO QID MIN Stop: 03/15/25 19:14 Last Admin: 03/01/25 08:46 Dose: 1 gm PG Care Time/CCT Total # of Minutes Spent Total Time Spent with Patient: Total time spent is greater than 50% in coordination of care (as documented) at patient's floor/unit and/or counseling patient: Advanced Care Planning 54927 Advanced Care Planning 30 Min C[place] [address] SUB INP/OBS CARE 2/35MIN Patient Type Established History Expanded Problem Focused Exam Expanded Problem Focused Medical Decision Making Moderate Complexity Diagnoses Refractory nausea and vomiting R11.2 Palliative care by specialist Z51.5 Cancer related pain G89.3 Lethargy R53.83 Counseling regarding goals of care Z71.89 Additional Codes Advanced Care Planning - 32087 Advanced Care Planning 30 Min: 80775 Advanced Care Planning 30 Min ([id number])
--- NOTE | 2025-03-01 17:25 | Hospitalist Progress Note ---
Date of Service March 01, 2025 Assessment & Plan (1) Metastatic disease: (2) Thrombocytopenia: (3) Bacteremia: (4) Hypokalemia due to excessive gastrointestinal loss of potassium: (5) Refractory nausea and vomiting: Plan This patient is a 34yo female with history of metastatic breast cancer (lesions to spine, lung, liver, brain) presenting with intractable vomiting with hematemesis and pancytopenia. Patient has had hematemesis on several occasions necessitating hospital admission. 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 #Goals of care/comfort measures-patient and are agreeable to going on inpatient hospice. They would like to continue IV antibiotics and fluids as long as she is awake and alert and able to interact with family. Plan to discharge and readmit to general inpatient hospice on 03/02 - Continue pain control with fentanyl patch to be increased to 50 mcg on 03/02 - Continue IV morphine and p.o. morphine as needed for breakthrough pain - Lorazepam, Zofran for nausea #Fever/bacteremia/candidemia-Binta glabrata and Staphylococcus epidermidis growing in all bottles on blood cultures (from port and peripheral) from 02/27 when she spiked a fever. Growing from port, Added caspofungin and stopped TPN. No ability to remove port due to severe thrombocytopenia. Discontinued use of port. - Continue caspofungin, Zosyn, vancomycin and follow final culture results - Family wishes to continue treatment of infection even though they know ultimately she would need port removal to clear an infection - Also with neutropenia worsening-could consider Neupogen but enrolling in hospice #Epistaxis-having epistaxis secondary to severe thrombocytopenia. None since 02/28. Hemoglobin did drop to 7.8. - Continue Afrin nasal spray as needed and platelet transfusion as needed - Left tamponade rhino rocket at bedside if needed. Likely to recur with her thrombocytopenia #Metastatic breast cancer / malignant gastric outlet obstruction / hematemesis / gastritis-After discussion with oncology both here and [place] there are no further chemotherapy options for her given her GOO and bone marrow involvement- Finished radiation to abdomen 02/23 which likely will help hematemesis but less likely to help gastric outlet obstruction. Started radiation to breast 02/27 for pain although she elected to stop this on 02/28. -Continue Carafate, PPI, Pepcid - Advance diet to clear liquids as tolerated-tolerating so far 03/01 perhaps due to improvement with radiation -continue on ondansetron, lorazepam, and Compazine for nausea #Anemia-Secondary to hematemesis + bone marrow infiltration of cancer. Total 4 units packed RBCs this admission.. Hgb dropped further to 7.8-family and patient wish for transfusions if still awake and able to interact with family -Follow CBC #Thrombocytopenia / Neutropenia-neutropenia worsening with bacteremia/candidemia. Overall pancytopenia secondary to bone marrow involvement and not likely to improve.Total 4 unit platelets this admission. -Neutropenic isolation precautions and consider Neupogen -Platelet transfusions PRN if she continues to bleed #Cancer related pain Appreciate management of this from palliative care - Fentanyl patch started 02/22, increased to 50 mcg on 03/02 Morphine IV and P.O. PRN #Ingrown toenail s/p bedside procedure by podiatry on 02/17, healing well #Anxiety -Lorazepam IV PRN -Continue Escitalopram #VTE Prophylaxis -JAMES hose and SCDs are ordered but may cause bruising if SCDs used frequently #Disposition - continue on med/surg, do not change rooms, if getting significantly worse, call right away if he is not present so that he and his family have time to get here to be here for when she passes away Admission and Anticipated Discharge Date Admission Date: February 12, 2025 Subjective Patient reports pain in her upper back. She is moving her bowels with loose stools, making urine. She was feeling hungry today and requested clear liquids. So far she tolerated Jell-O, ice cream, and broth. No nosebleeds today. I discussed her care with her at length. Patient was in and out of sleep while I was talking to her. He would like the IV antibiotics and fluids to continue as long as the patient is awake and alert and able to interact with family and friends. They are also okay with transfusion of platelets if having active bleeding. They would still like blood draws daily. He and the patient are in agreement that she is not stable enough to return home on hospice and they are now agreeable to transitioning to inpatient hospice I discussed her care at length on 2 occasions with palliative medicine. Physical Exam Constitutional: + ill appearing; no acute distress Eyes: + anicteric sclerae Respiratory: normal respiratory effort, lungs clear to auscultation Cardiovascular: RRR, no murmur, no edema Results & Data Results & Data Vital Signs (Past 12 Hours) Vital Signs Temp Pulse Resp BP BP Pulse Ox O2 Del Method 03/01/25 16:40 123/83 03/01/25 16:21 37 C 108 H 16 99 Nasal Cannula 03/01/25 07:56 37 C 120 H 18 105/72 96 Nasal Cannula 03/01/25 07:50 Room Air O2 Flow Rate 03/01/25 16:40 03/01/25 16:21 2 03/01/25 07:56 2 03/01/25 07:50 Laboratory Results CBC, BMP, LFTs, blood cultures reviewed PG Care Time/CCT Total # of Minutes Spent Total Time Spent with Patient: Total time spent is greater than 50% in coordination of care (as documented) at patient's floor/unit and/or counseling patient: Coding Level of Care Code 22051 SUB INP/OBS CARE 2/35MIN Diagnoses 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
[2025-03-02 06:45] LABS: Anion Gap 6.0 (3-11); Blood Urea Nitrogen 7.0 mg/dl (6-23); Calcium 8.2 mg/dl (8.6-10.3); Carbon Dioxide 20.0 mmol/L (21-32); Chloride 109.0 mmol/L (98-107); Creatinine Clr Calc Pharmacy 122.4 ml/min; Glucose 80.0 mg/dl (70-99(Fasting)); Magnesium 1.4 mg/dl (1.7-2.4); Potassium 2.8 mmol/L (3.5-5.1); Sodium 135.0 mmol/L (136-145)
[2025-03-02 06:52] LABS: Hematocrit (blood only) 22.4 % (37.0-47.0); Hemoglobin 7.8 g/dl (12.0-16.0); Immature Granulocytes # (auto) 0.00 K/uL (0.01-0.20); Immature Granulocytes % (auto) 0.0 %; Mean Corpuscular Hemoglobin 30.2 pg (25.0-34.0); Mean Corpuscular Volume 86.8 fL (80.0-100.0); Ovalocytes 1+; Platelet Count 17 K/uL (130-400); Polychromasia 2+; RDW Standard Deviation 51.7 fL (36.4-46.3); Red Blood Count 2.58 M/uL (4.20-5.40); Tear Drop Cells 1+; White Blood Count 0.91 K/ul (4.8-10.8)
[2025-03-02 07:50] VITALS: BP 96/59; PULSE 89; RESP 18; O2SAT 95
[2025-03-02 08:04] VITALS: TEMP 98.6
[2025-03-02] MEDS: MAGNESIUM SULFATE / D5W 1 GM/100 ML BAG IV SCH (08:59)
[2025-03-02] MEDS: POTASSIUM CHLORIDE / WTR 10 MEQ/100 ML PLCT IV SCH (09:04)
[2025-03-02] MEDS: FILGRASTIM 480 MCG/1.6 ML VIAL SC ONE (11:06)
--- NOTE | 2025-03-02 12:50 | Discharge Summary ---
Discharge Summary Date of Service March 02, 2025 Principal Dx & Hospital Course #1 = Principal Diagnosis (1) Metastatic disease: (2) Thrombocytopenia: (3) Bacteremia: (4) Hypokalemia due to excessive gastrointestinal loss of potassium: (5) Refractory nausea and vomiting: Plan This patient is a 34yo female with history of metastatic breast cancer (lesions to spine, lung, liver, brain) presenting with intractable vomiting with hematemesis and pancytopenia. Patient has had hematemesis on several occasions necessitating hospital admission. 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 #Goals of care/comfort measures-patient and are agreeable to going on inpatient hospice. They would like to continue IV antibiotics and fluids as long as she is awake and alert and able to interact with family. Plan to discharge and readmit to general inpatient hospice on 03/02 - Continue pain control with fentanyl patch to be increased to 50 mcg on 03/02 - Continue IV morphine and p.o. morphine as needed for breakthrough pain - Lorazepam, Zofran for nausea #Fever/bacteremia/candidemia-Binta glabrata and Staphylococcus epidermidis growing in all bottles on blood cultures (from port and peripheral) from 02/27 when she spiked a fever. Growing from port, Added caspofungin and stopped TPN. No ability to remove port due to severe thrombocytopenia. Discontinued use of port. No further fevers. - Continue caspofungin, Zosyn, vancomycin and follow final culture results - Family wishes to continue treatment of infection even though they know ultimately she would need port removal to clear an infection - Also with neutropenia-give 1 dose of Neupogen #Epistaxis-having epistaxis secondary to severe thrombocytopenia. None since 02/28. Hemoglobin did drop to 7.8. - Continue Afrin nasal spray as needed and platelet transfusion as needed - Left tamponade rhino rocket at bedside if needed. Likely to recur with her thrombocytopenia #Metastatic breast cancer / malignant gastric outlet obstruction / hematemesis / gastritis-After discussion with oncology both here and [place] there are no further chemotherapy options for her given her GOO and bone marrow involvement- Finished radiation to abdomen 02/23 which likely will help hematemesis but less likely to help gastric outlet obstruction. Started radiation to breast 02/27 for pain although she elected to stop this on 02/28. -Continue Carafate, PPI, Pepcid - Continue clear liquids as tolerated-tolerating so far 03/01 perhaps due to improvement with radiation -continue on ondansetron, lorazepam, olanzapine, and Compazine for nausea #Anemia-Secondary to hematemesis + bone marrow infiltration of cancer. Total 4 units packed RBCs this admission.. Hgb dropped further to 7.8-family and patient wish for transfusions if still awake and able to interact with family -Follow CBC when patient desires #Thrombocytopenia / Neutropenia-neutropenia worsening with bacteremia/candidemia. Overall pancytopenia secondary to bone marrow involvement but also an acute drop likely secondary to sepsis/infection.Total 4 unit platelets this admission. Platelets improved to 17 -Neutropenic isolation precautions and give 1 dose of Neupogen given active infection -Platelet transfusions PRN if she continues to bleed if desired although would not change overall prognosis #Cancer related pain Appreciate management of this from palliative care - Fentanyl patch started 02/22, increased to 50 mcg on 03/02 Morphine IV and P.O. PRN #Ingrown toenail s/p bedside procedure by podiatry on 02/17, healing well #Anxiety -Lorazepam PRN -Continue Escitalopram #VTE Prophylaxis -JAMES hose and SCDs are ordered but may cause bruising if SCDs used frequently #Disposition - continue on med/surg, discharging to [facility]/inpatient hospice If getting significantly worse, call right away if he is not present so that he and his family have time to get here to be here for when she passes away Notes For Next Care Provider Medication Changes From Visit See list Admission HPI Per Admitting Provider Elvira Almendarez is a 34yo female presenting with nausea, multiple episodes of vomiting (brown liquid with small amount of blood) which started today around 11:00. Patient received chemotherapy yesterday. Her nausea today, however, is out of the ordinary. She has had multiple episodes of vomiting with some blood. Last episode of vomiting in the ER. No fever, chills, chest pain, cough, SOB. No abdominal pain or distention. No additional complaints. Patient has history of metastatic breast cancer which was diagnosed 04/28/2023 (ER/HI +, HER2 equivocol) with lesions to the spine, lung, brain and liver. Patient received XRT, was on several regimens of chemotherapy - now receiving Gemcitabine and Carboplatin since November 2024, last chemotherapy treatment yesterday 02/10/2025. In January patient was admitted to [facility] due to hematemesis. She had an EGD that showed esophageal and duodenal ulcers. She was admitted to [facility] 01/31 - 02/01/25 after presenting with hematemesis and epistaxis. She was found to be thrombocytopenic with platelet count of 26. She was transfused with platelets and ultimately discharged home. Patient has been compliant with her Protonix 40mg po BID. Has been using Zofran and Compazine alternating for management of nausea today. In the ER she is afebrile, HD stable. ER Course: Protonix Octreotide Discharge Exam Constitutional + ill appearing; no acute distress Eyes + anicteric sclerae Respiratory normal respiratory effort, lungs clear to auscultation Cardiovascular RRR, no murmur, no edema Discharge Plan Discharge Items Patient Disposition: Hospice - Medical Facility Reason For Visit: NAUSEA, HEMATEMESIS Discharge Diagnosis: Metastatic breast cancer Pancytopenia Intractable nausea/vomiting secondary to gastric outlet obstruction Candidemia, Staphylococcus epidermidis bacteremia Condition on Discharge: Serious Activity: As commented below Bathing: No limitations Exercise/Sports: Rest today and As tolerated Non-emergency contact: Primary Care Provider Call non-emergency contact if: you have any medication questions Follow-up/Referrals: PCP,NO [Primary Care Provider] - Diet: Clear liquid Addtl Attending Provider Instructions: Discharged to [facility]/inpatient hospice Pending Studies at Discharge: No Stand-Alone Forms: [facility] Skilled Items Patient informed of condition?: Yes DNR: Yes Discharge Level of Care: Other Communicable Disease: No Discharge Prognosis: Deteriorating Lines: Peripheral IV Urinary Catheter: No Medications and DC Order Prescriptions: New hyoscyamine sulfate [Levsin] 0.125 mg Tablet 0.125 mg sublingual Q4H PRN (Reason: secretions) Qty: 10 0RF fentanyl 50 mcg/hr Patch 72 Hour 1 patch transdermal Q3D Qty: 5 0RF lorazepam 0.5 mg Tablet 0.5 mg sublingual Q4H PRN (Reason: anxiety) Qty: 1 0RF olanzapine 10 mg Tablet,Disintegrating 10 mg PO Q12H PRN (Reason: nausea and vomiting) Qty: 6 0RF melatonin 3 mg Tablet 3 mg PO HS Qty: 1 0RF Continued diphenoxylate-atropine [Lomotil] 2.5-0.025 mg tablet 1 tab PO Q6H PRN (Reason: Diarrhea) ondansetron 8 mg tablet,disintegrating 8 mg PO TID PRN (Reason: Nausea And Vomiting) escitalopram oxalate [Lexapro] 10 mg tablet 10 mg PO HS sucralfate 100 mg/mL Suspension 1 g PO QID Qty: 400 0RF pantoprazole 40 mg Tablet,Delayed Release (Dr/Ec) 40 mg PO BID Qty: 30 0RF Discontinued tramadol 50 mg tablet 50 mg PO BID PRN (Reason: Pain) alprazolam [Xanax] 0.5 mg tablet 0.5 mg PO Q8H PRN (Reason: Anxiety) (DME) breast pump Device See Rx Instructions .ROUTE .MEDSUPPLY Qty: 1 0RF Rx Instructions: Pt already has a breast pump multivitamin Tablet 1 tab PO DAILY Qty: 0 prochlorperazine maleate [Compazine] 10 mg tablet 10 mg PO QID PRN (Reason: Nausea) ascorbic acid (vitamin C) [Vitamin C] 500 mg Tablet 500 mg PO QAM cholecalciferol (vitamin D3) [Vitamin D3] 25 mcg (1,000 unit) Tablet 25 mcg PO DAILY fulvestrant [Faslodex] 250 mg/5 mL Syringe 250 mg IM MONTHLY Rx Instructions: last dose 1 weeks ago oxycodone 10 mg tablet 10 mg PO Q8 PRN (Reason: Pain) calcium carbonate [Calcium 500] 500 mg calcium (1,250 mg) tablet,chewable 500 mg PO BID potassium chloride 20 mEq packet 20 meq PO DAILY Qty: 30 5RF Discharge Orders: Discharge Order (Routine); Ordered 03/02/25 Ordered By: Gilda Wilkerson Admission Data Admit Date/Time: 02/12/25 00:45 Attending Provider: Gilda Wilkerson Admit Provider: Talia Tompkins Primary Care Provider: PCP,NO Other Providers: [facility],Home Health; Jona,Mauricio; Talia Tompkins; Fermín Frausto Jr; Clary Roldan; Kole Rubio Hospital Stay Data Consultations 02/12/25 00:56 ED Decision to Admit Stat 02/12/25 02:51 Consult Gastroenterology Routine 02/21/25 09:20 Consult Palliative Care Routine 02/21/25 20:57 Consult General Surgery Routine Diagnostic Imagining Performed 02/11/25 22:16 CT Abd and Pelvis [CT abd pelvis IV con only] Stat 02/13/25 13:53 CT guide rad therapy chest Routine 02/21/25 16:08 CT abdomen pelvis wo/w con Routine 02/27/25 19:35 CT Abd and Pelvis [CT abd pelvis IV con only] Stat CT chest diagnostic wo/w con Stat Pending Results Patient Have Any Pending Studies at Discharge: No Discharge Instructions Given to Patient (Per Discharging Provider) Discharged to [facility]/inpatient hospice Total Time Total Time Spent Total Time Spent (In Minutes): 20 min Total Time Includes: Examination of the Patient, Discharge Planning, Medication Reconciliation and Communication With Other Providers Coding Level of Care Code 28710 IN/OBS DISCH 30 MIN/LESS Diagnoses 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
--- NOTE | 2025-03-02 13:58 | Palliative Care Progress Note ---
Date of Service March 02, 2025 Assessment & Plan (1) Refractory nausea and vomiting: Plan: Pt c/o intractable N/V for about six weeks - constant nausea that frequently worsens causing emesis, but the underlying nausea has been constant and refractory to medications for several weeks. She previously has had 4mg of zofran which offers no relief. She reports relief from rotating zofran and compazine previously for nausea after cancer treatments, but this time nothing worked so she came to hospital. She shared that her nausea had improved and she was tolerating sips after 24hr of RTC alternating zofran/compazine, but it worsened and Zyprexa was added with marginal improvement of nausea. 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 Utility of venting NGT limited by recurrent epistaxis and thrombocytopenia. Discussed the difficulty in medical mgmt of mechanical obstruction. She shared that her nausea is much improved overnight and is tolerating sips of clears. Continue Zyprexa 10mg ODT q12h PRN for refractory nausea Continue Zofran 8mg ODT q6hr MIN alternate zofran/compazine so one or other is given every three hours MIN until nausea relieved then PRN Continue Compazine 10mg PO q6hr MIN Continue Carafate, PPI, Pepcid, TPN; consider adding PPI, pepcid to TPN for ease of use at home. (2) Palliative care by specialist: Plan: Palliative care will continue to follow for ongoing symptom mgmt and patient/family support. (3) Cancer related pain: Plan: Pt c/o chronic aching type pain in thoracic-lumbar spinal area as well as chronic abdominal pain (sharp/gnawing pains in RUQ - occasionally radiates posteriorly around flank) that she relates to her metastatic cancer. She states that this pain bothers her less since admission and she attributes the reduction in pain to being mostly bed bound while hospitalized. She feels her back pain is much worse at home because she is caring for her young children. The back pain interferes with her living her life and performing iADLs for herself and her family. Although she does appear to be using her PRN morphine more frequently here, also contributing to her lower pain rating. She continues to require frequent PRN morphine for pain, but states that her jose luis n may be slightly improved. She shared that her pain is currently 6::10, her self identified goal for appropriate pain mgmt is a 4. She states that she is awaiting morphine, because it is not due yet. She shared that the morphine 4mg IV gives adequate relief, but inadequate duration. Dosing interval for IV morphine changed to q1h prn. Continue: duragesic 50 Mcg/Hr 1 patch TD Q3D@0900 MIN Morphine 4mg IV Q1h PRN for BTP or Roxanol 10mg SL/PO Q3h PRN for BTP given ongoing N/V continue IV morphine for now, encouraged preference to PO/SL route if pt able to tolerate. Will not have access to IV morphine as a home medication per [facility] branch sales and service representative. (4) Lethargy: Plan: improving (5) Counseling regarding goals of care: Plan: Today: Goals of care clearly established for comfort directed care and pt now admitted under [facility] hospice with [facility]. 03/01:Met with Ophelia and her Austin for 30 minutes. Ophelia shared that she is still tired but is feeling better today. Ophelia and Austin both express relief of having family and especially their daughter aware of her prognosis. Austin shared that it is a relief to not have to hide it from family anymore. Ophelia shared that she again has an appetite since TPN has stopped. She is craving broth, and requested her diet be advanced. We again discussed pt's intractable symptoms as barrier to pt returning home. Ophelia and Austin both in agreement that home is no longer an option due to her intractable symptoms, however they questioned the appropriate time to transition to comfort directed care. Discussed current interventions and helped Ophelia and Austin understand that all treatments at this time are palliative in nature so the sum effect of adding hospice at this point would be to offer additional services for Ophelia and her family. Both agree that they would like to enroll with [facility] at this time. CM and attending made aware. Austin shared that their daughter will be coming back to the hospital this evening along with Rev Thomas to assist in working on some legacy items for the children. I assisted Ophelia in recording her heart beat and rhythm strip for this purpose. Plan [employer]/[facility] hospice Admission and Anticipated Discharge Date Admission Date: February 12, 2025 Subjective Assessed pt at bedside, her spouse was present. NAD, VSS on RA. Pt states that she had difficulty sleeping last night, but that her pain and nausea are under control with use of IV medications. Pt was able to sip some broth and ice cream overnight and has not had any further emesis. [facility] branch sales and service representative at bedside, she has been accepted as [facility] hospice. Review of Systems Review of Systems: All systems reviewed & are unremarkable except as noted in Subjective Physical Exam Constitutional: WD/WN, vitals as above Eyes: PERRL, conjunctivae normal, anicteric sclerae ENMT: Ears: no hearing impairment Neck: trachea midline, no thyromegaly Respiratory: normal respiratory effort, lungs clear to auscultation Cardiovascular: RRR, no murmur, no edema Gastrointestinal (Abdomen): normal bowel sounds, soft, nontender, no hepatosplenomegaly Skin: no rashes, warm and dry + pallor Psychiatric: A+Ox3, euthymic affect Lymphatic: no cervical or axillary lymphadenopathy Results & Data Vital Signs (Past 12 Hours) Vital Signs Temp Pulse Resp BP Pulse Ox O2 Del Method O2 Flow Rate 03/02/25 07:49 37.0 C 89 18 96/59 L 95 Nasal Cannula 1 Laboratory Results No further labs or diagnostics in concert with comfort directed care. Diagnostic Findings No further labs or diagnostics in concert with comfort directed care. PG Care Time/CCT Total # of Minutes Spent Total Time Spent with Patient: Total time spent is greater than 50% in coordination of care (as documented) at patient's floor/unit and/or counseling patient: Coding [place] [address] SUB INP/OBS CARE 3/50MIN Patient Type Established History Expanded Problem Focused Exam Expanded Problem Focused Medical Decision Making Moderate Complexity Diagnoses Refractory nausea and vomiting R11.2 Palliative care by specialist Z51.5 Cancer related pain G89.3 Lethargy R53.83 Counseling regarding goals of care Z71.89
[2025-03-02 14:58] LABS: A calco-baum cmplx NotReported Not Detected (NotDetected); Bact fragilis Not Reported Not Detected (NotDetected); Blood Culture Id Panel See PCR Comment (NotDetected); C auris Not Reported Not Detected (NotDetected); Calbicans Not Reported Not Detected (NotDetected); Candida glabrata DETECTED (NotDetected); Candida glabrata Not Reported DETECTED (NotDetected); Candida krusei Not Reported Not Detected (NotDetected); Cneoformans/gatti Not Reported Not Detected (NotDetected); Cparapsilosis Not Reported Not Detected (NotDetected); Ctropicalis Not Reported Not Detected (NotDetected); E cloacae compx Not Reported Not Detected (NotDetected); Efaecalis Not Reported Not Detected (NotDetected); Efaecium Not Reported Not Detected (NotDetected); Enterobacterales Not Reported Not Detected (NotDetected); Escherichia coli Not Reported Not Detected (NotDetected); H influenzae Not Reported Not Detected (NotDetected); K aerogenes Not Reported Not Detected (NotDetected); Koxytoca Not Reported Not Detected (NotDetected); Kpneumoniae grp Not Reported Not Detected (NotDetected); Lmonocyt Not Reported Not Detected (NotDetected); N meningitidis Not Reported Not Detected (NotDetected); P aeruginosa Not Reported Not Detected (NotDetected); Proteus spp Not Reported Not Detected (NotDetected); Salmonella spp Not Reported Not Detected (NotDetected); Staph lugdunensis Not Reported Not Detected (NotDetected); Staph spp. Not Reported Not Detected (NotDetected); Staphaureus Not Reported Not Detected (NotDetected); Staphepi Not Reported Not Detected (NotDetected); Stenmaltophilia Not Reported Not Detected (NotDetected); Strep agal(GrpB) Not Reported Not Detected (NotDetected); Strep pneum Not Reported Not Detected (NotDetected); Strep pyog (GrpA) Not Reported Not Detected (NotDetected); Strep spp Not Reported Not Detected (NotDetected)
[2025-03-03] MEDS ORDERED: VANCOMYCIN LEVEL ONE (12:00)
== END 2025-03-02 13:10 | disposition hospice, inpatient (51) | DRG 374 ==
LOC: ED 22:00 → SUATTDRO 02-12 00:45 → 2E 02-12 00:45 → 3E 02-26 18:38

== ENCOUNTER 2025-03-02 12:50 | Inpatient (IN) ==
[2025-03-02] MEDS ORDERED: ONDANSETRON INJ 2 MG/ML 2 ML VIAL IV PRN (14:23)
[2025-03-02] MEDS ORDERED: HYOSCYAMINE SULFATE 0.125 MG TAB SL PRN (14:23)
[2025-03-02] MEDS ORDERED: PROCHLORPERAZINE 5 MG in SYRINGE 4 ML IV PRN (14:23)
[2025-03-02] MEDS ORDERED: ONDANSETRON 8MG OD TAB PO PRN (14:27)
[2025-03-02] MEDS: cefTRIAXone SODIUM 1,000 MG/50 ML BAG IV SCH (15:15)
--- NOTE | 2025-03-02 15:15 | History & Physical Report ---
Date of Service March 02, 2025 Assessment & Plan (1) Comfort measures only status: (2) Malignant neoplasm of breast metastatic to bone: Plan This patient is a 34yo female with history of metastatic breast cancer (lesions to spine, lung, liver, brain) presenting with intractable vomiting with hematemesis and pancytopenia. 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 During hospital stay she had radiation to the stomach which has improved some of her symptoms and she is able to tolerate clear liquids. She also developed candidemia bacteremia due to TPN use through her port which has now been discontinued. She is now transition to [facility]/inpatient hospice # Comfort measures only status-patient and are agreeable to going on inpatient hospice. They would like to continue IV antibiotics and fluids as long as she is awake and alert and able to interact with family. - Continue pain control with fentanyl patch increased to 50 mcg on 03/02 - Continue IV morphine and p.o. morphine as needed for breakthrough pain given bony metastases and for shortness of breath - Lorazepam, Zofran for nausea - Robinul or hyoscyamine for secretions # Neutropenic fever/bacteremia/candidemia-Binta glabrata and Staphylococcus epidermidis, as well as Micrococcus luteus and Brevibacterium ravenspurgense growing blood cultures (from port and peripheral) from 02/27 when she spiked a fever. Added caspofungin and stopped TPN. No ability to remove port due to severe thrombocytopenia. Discontinued use of port. No further fevers. With neutropenia - Continue caspofungin, and change to ceftriaxone-discontinue vancomycin and Zosyn - Family wishes to continue treatment of infection even though they know ultimately she would need port removal to clear an infection - Also with neutropenia-gave 1 dose of Neupogen on 03/02 #Epistaxis-having epistaxis secondary to severe thrombocytopenia. None since 02/28. Hemoglobin did drop to 7.8 and remained stable - Continue Afrin nasal spray as needed and platelet transfusion as needed - Left tamponade rhino rocket at bedside if needed. Likely to recur with her thrombocytopenia #Metastatic breast cancer / malignant gastric outlet obstruction / hematemesis / gastritis-After discussion with oncology both here and [place] there are no further chemotherapy options for her given her GOO and bone marrow involvement- Finished radiation to abdomen 02/23 which likely will help hematemesis but less likely to help gastric outlet obstruction. Started radiation to breast 02/27 for pain although she elected to stop this on 02/28. -Continue Carafate, PPI, Pepcid - Continue clear liquids as tolerated-tolerating so far 03/01 perhaps due to improvement with radiation -continue on ondansetron scheduled, lorazepam as needed for anxiety or agitation, olanzapine 10 mg twice daily scheduled, and Compazine as needed for nausea #Anemia-Secondary to hematemesis + bone marrow infiltration of cancer. Total 4 units packed RBCs this admission.. Hgb dropped further to 7.8-family and patient wish for transfusions if still awake and able to interact with family -Follow CBC when patient desires #Thrombocytopenia / Neutropenia-neutropenia worsening with bacteremia/candidemia. Overall pancytopenia secondary to bone marrow involvement but also an acute drop likely secondary to sepsis/infection.Total 4 unit platelets this admission. Platelets improved to 17 -Neutropenic isolation precautions and gave 1 dose of Neupogen given active infection -Platelet transfusions PRN if she continues to bleed if desired although would not change overall prognosis #Cancer related pain Appreciate management of this from palliative care - Fentanyl patch started 02/22, increased to 50 mcg on 03/02 Morphine IV and P.O. PRN #Ingrown toenail s/p bedside procedure by podiatry on 02/17, healing well #Anxiety -Lorazepam PRN -Continue Escitalopram #VTE Prophylaxis -none needed on comfort measures #Disposition - continue on med/surg, GIP/inpatient hospice If getting significantly worse, call right away if he is not present so that he and his family have time to get here to be here for when she passes away Admission and Anticipated Discharge Date Admission Date: March 02, 2025 History of Present Illness Chief Complaint: GIP Primary Care Provider: NO PCP This patient is a 34-year-old female with a history of metastatic breast cancer with mets to the bones, lung, liver, and brain, who was admitted with hematemesis and gastric outlet obstruction with intractable nausea and vomiting. Also with pancytopenia and developed candidemia and bacteremia related to port and TPN use. She is now being admitted under general inpatient hospice. She and her do want to continue with antibiotics to finish out a course for the bacteremia and candidemia but she was not able to have her port removed due to severe thrombocytopenia. She has been able to tolerate some clear liquids on multiple antiemetics. Allergies Allergy/AdvReac Type Severity Reaction Status Date / Time No Known Drug Allergies Allergy Unknown Verified 02/13/25 17:15 Home Medications Medication Instructions Recorded Confirmed Type diphenoxylate-atropine 2.5 1 tab PO Q6H PRN Diarrhea 03/04/24 02/11/25 History mg-0.025 mg tablet (Lomotil) escitalopram oxalate 10 mg tablet 10 mg PO HS 11/19/24 02/11/25 History (Lexapro) ondansetron 8 mg disintegrating 8 mg PO TID PRN Nausea And Vomiting 11/19/24 02/11/25 History tablet pantoprazole 40 mg tablet,delayed 40 mg PO BID #30 tabs 02/01/25 02/11/25 Rx release sucralfate 100 mg/mL oral 1 g (10 mL) PO QID #400 mL 02/01/25 02/11/25 Rx suspension fentanyl 50 mcg/hr transdermal 1 patch transdermal Q3D #5 ea 03/02/25 Rx patch hyoscyamine sulfate 0.125 mg 0.125 mg sublingual Q4H PRN 03/02/25 Rx tablet (Levsin) secretions #10 tabs lorazepam 0.5 mg tablet 0.5 mg sublingual Q4H PRN anxiety 03/02/25 Rx #1 tab melatonin 3 mg tablet 3 mg PO HS #1 tab 03/02/25 Rx olanzapine 10 mg disintegrating 10 mg PO Q12H PRN nausea and 03/02/25 Rx tablet vomiting #6 tabs Past Med/Surg History Problem List (Updated 03/02/25 @ 15:10 by Gilda Wilkerson MD) Comfort measures only status Bacteremia Counseling regarding goals of care Metabolic alkalosis Gastric outlet obstruction Refractory nausea and vomiting Lethargy Palliative care by specialist Cancer related pain Vomiting (Acute) Chemotherapy-induced thrombocytopenia Thrombocytopenia (Acute) Primary malignant neoplasm of left breast with metastasis to other site Hypocalcemia (Acute) Hypoalbuminemia Hypokalemia due to excessive gastrointestinal loss of potassium Brain metastasis (Chronic) Hypokalemia (Acute) Hypomagnesemia (Acute) Choledocholithiasis (Acute) Metastatic disease (Acute) History of cervical dysplasia Medical History Hematemesis Anemia Metastatic cancer Breast cancer metastasized to liver Hx of nausea Breast cancer metastasized to liver Most recent chemo 11/22/24 per [place] record Elevated liver enzymes History of anemia History of anxiety Hx of jaundice Cancer with mets to liver Hypocalcemia Hypokalemia History of cervical dysplasia History of pneumonia (04/2023) 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, ER/Pr+, Her 2 neg History of COVID-19 11/2021- "mild symptoms" > resolved Missed Hx Surgical History Port-A-Cath in place (11/11/23) Insertion of Access Port with Fluoroscopy Right Internal Jugular Vein Hx of bilateral oophorectomy (10/2023) History of ERCP 07/14/23, [facility] Hx laparoscopic cholecystectomy Robotic Laparoscopic Cholecystectomy: Grade 1 view, MAC#3, ETT 7.0 at [facility] History of dilatation and curettage S/p bilateral myringotomy with tube placement S/P tympanoplasty Right x2 History of low transverse section x2, with tubal ligation S/P wisdom tooth extraction S/P LEEP of cervix Family History Grandmother (Maternal) Breast cancer Aunt Breast cancer Grandfather Heart murmur Father Family history of reaction to anesthesia nausea/vomiting Other Twins, both liveborn Social History Smoking Status: Never smoker Tobacco Type: Cigarettes Second Hand Exposure: No; Do You Dip or Chew Tobacco: No; Hx Alcohol Use: No Hx Substance Use: Yes Last Used Substance: Days (ago) Substance Use Type Other:: edibles or topical Preferred Language: Yemeni Communication Ability: Effective Visual Impairment: No Limitations 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: No Beliefs That Will Affect Care: None marital status: marital status details: Austin Almendarez ([phone] Current Living Situation: Spouse and Family Current Living Situation Comment: and two children 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 Other Information That Helps Us Care for You: No Feels Safe at Home: Yes Safety Concerns: Feels Safe At This Time Assistive Devices: Glasses Review of Systems Review of Systems: All systems reviewed & are unremarkable except as noted in HPI & below Physical Exam Physical Exam: See physical exam from discharge summary on the same date of service Code Status & VTE Plan Code Status DNR/DNI VTE Prophylaxis Plan VTE Prophylaxis will be ordered: No Reason for no VTE drug order: Contraindicated PG Care Time/CCT Total # of Minutes Spent Total Time Spent with Patient: Total time spent is greater than 50% in coordination of care (as documented) at patient's floor/unit and/or counseling patient: Coding Level of Care Code 94410 INT INP/OBS CARE 40MIN Diagnoses Comfort measures only status Z51.5 Malignant neoplasm of breast metastatic to bone C50.919; C79.51
[2025-03-02] MEDS: ONDANSETRON INJ 2 MG/ML 2 ML VIAL IV SCH (15:16)
[2025-03-02] MEDS ORDERED: ONDANSETRON INJ 2 MG/ML 2 ML VIAL IV SCH (18:00)
[2025-03-02] MEDS: MoRPHine SULFATE 4 MG/ML 1 ML CARP\\VIAL IV PRN (18:05)
[2025-03-02] MEDS: SUCRALFATE 1 GM/10 ML UDC PO SCH (18:06)
[2025-03-02] MEDS: ONDANSETRON 8MG OD TAB PO SCH (20:19)
[2025-03-02] MEDS: PROCHLORPERAZINE 5 MG in SYRINGE 4 ML IV SCH (20:19)
[2025-03-02] MEDS: ESCITALOPRAM OXALATE 10 MG TAB PO SCH (20:23)
[2025-03-02] MEDS: PANTOprazole 40 MG/10 ML SYR IV SCH (20:23)
[2025-03-02] MEDS: MELATONIN 3 MG TAB PO SCH (20:24)
[2025-03-03] MEDS: MoRPHine SULFATE 4 MG/ML 1 ML CARP\\VIAL IV PRN (06:03)
[2025-03-03] MEDS ORDERED: MELATONIN 3 MG TAB PO PRN (09:31)
[2025-03-03] MEDS: SIMETHICONE 80 MG CHEW PO PRN (10:32)
[2025-03-03] MEDS: DIPHENOXYLATE/ATROPINE 2.5/0.025MG TAB PO PRN (10:32)
[2025-03-03] MEDS: CASPOFUNGIN 50 MG in SODIUM CHLORIDE 0.9% 250 ML IV SCH (10:32)
--- NOTE | 2025-03-03 10:49 | Palliative Care Progress Note ---
Date of Service March 03, 2025 Assessment & Plan (1) Cancer related pain: Plan: Will begin GREEN CHAINER for demand dose MS only, NO continuous rate per pt preference Her parents were in agreement Begin demand dose GREEN CHAINER Morphine 1mg GREEN CHAINER bolus q30min prn, no continuous rate (2) Refractory nausea and vomiting: (3) Advanced care planning/counseling discussion: Plan: I had a 60min face to face ACP meeting with and Mrs. Almendarez at their request. They have decided to stop Abtx. At their request, I have dc ceftriaxone and caspo. They tell me that they spoke as a family last night w/her dad and step mom. They do not want to prolong dying and feel the side effects of these meds are adding to her suffering with increased diarrhea, etc. We spoke about trying Lomotil for comfort / relief of diarrhea and also using prn meds for more symptom mgt. They had several questions about what to expect, how the process of dying unfolds, possible timelines/prognostic predictions. We spoke about the nature of terminal illness and overall decline, anticipate survival in days to a week or so. We spoke about changes we may all move through in the dying process including but not limited to sleeping more, disorientation when awake, restlessness, diminished senses/inability to respond to stimulus although ability to be aware of them remains intact longer, changes in body temperatures, skin changes/mottling/cyanosis, respiratory pattern changes, oral secretions. They verbalized understanding. The goal is to assure a peaceful . Her symptom mgt remains complex. She is ONLY able to tolerate IV and transdermal meds for pain and sx mgt relief. She is barely taking much PO. She is growing weaker and more tired, resting/sleeping a lot. Mr. Almendarez shared that many friends/family have been reaching out wanting to see her even though he has tried to dissuade them as Ophelia does not want a lot of people outside her innermost comanche seeing her like this; notes some people have told him they want to "clear the air with Ophelia before she dies." He is frustrated people want to make this about them when it should be about her and her wishes/preferences. He wants to protect her dignity and honor her needs/wishes. He asked about limiting visitors bc people keep showing up even though they have been asked not to and she is unable to say no or ask them to leave. Yesterday, she left her room to get away from unwanted visitors who were overstaying. We agreed to follow the hospital visitation policy which nursing and staff will help enforce. When cannot be here, he will enlist the help of innermost comanche to take turns being here to help assure her privacy and the solitude she is seeking to finish working on her legacy work with Martha. We agreed [facility] teams will help enforce visitation and limit the encroachment on her privacy along with him and her close comanche. He will let us know who can be allowed "anytime" vs who needs to be limited. Ophelia spoke about being a "fighter" and how the desire to not leave her children drove much of her decisions for treatment. She asks how to transition that mindset, acknowledging that no further cancer directed therapies are possible and her cancer progression is terminal. We spoke about focusing on QOL and emphasized the importance of living in the moment, focusing on those personal goals which mean to most to her, not feeling the need to accommodate everyone when she is feeling the urgency of wanting to accomplish some goals for herself. She also needs some space outside of the room so I encouraged to take Ophelia outside for a break/different perspectives perhaps when kids can be here as well - we can provide a wheelchair to make this easier. We spoke about ways to empower Ophelia to make decisions about food, drink, and her visitors/care to help foster a sense of control and dignity in their final days. I emphasized the importance of creating a peaceful energy in her room, keeping lighting soft, TV volumes low +/- quiet music to promote peacefulness. Ophelia noted she has been trying meals as they arrive but not eating much. Not feeling a lot of hunger. Advised her to eat what she wants when she wants and let us know if she is desiring something other than what was delivered. Extensive support and reassurance given. 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 Thank you for allowing us to participate in the ongoing care of this patient. Please page with any additional concerns. Ele Johnson DNP Director, Palliative Medicine Admission and Anticipated Discharge Date Admission Date: March 02, 2025 Subjective Ophelia is seen together with Palliative Med EOL Martha Anglin. She has started work on legacy projects: hand print frames underway, need her son's hand print and he will be brought in today/weekend to complete. Martha is helping Ophelia with some letters she wants to leave behind for her children, etc. Ophelia's parents are at bedside. Two friends arrived mid way through visit. Ophelia states n/v is manageable for now Pain is ok - using prn IV MS with relief. expected this afternoon Appetite "ok" - had a few bites of rice krispies cereal Review of Systems 2 Review of Systems: All systems reviewed & are unremarkable except as noted in Subjective Physical Exam Constitutional: chronically ill, tired appearing Eyes: PERRL, conjunctivae normal, anicteric sclerae ENMT: Ears: no hearing impairment Neck: trachea midline, no thyromegaly Respiratory: normal respiratory effort, lungs clear to auscultation Cardiovascular: RRR, no murmur, no edema Gastrointestinal (Abdomen): Inspection/Auscultation: + abdomen distended Percussion/Palpation: + abdomen tender and + guarding (mild) Skin: no rashes, warm and dry + pallor Psychiatric: Orientation: alert, oriented x 3 and cooperative Apperance: appropriately dressed, appropriately groomed and appeared stated age Eye Contact: good eye contact PG Care Time/CCT Total # of Minutes Spent Total Time Spent: 55 Total Time Spent with Patient: Total time spent is greater than 50% in coordination of care (as documented) at patient's floor/unit and/or counseling patient: Advanced Care Planning 10159 Advanced Care Planning Additional 30 Min [place] [address] SUB INP/OBS CARE 3/50MIN Patient Type Established History Comprehensive Exam Comprehensive Medical Decision Making High Complexity Diagnoses Cancer related pain G89.3 Refractory nausea and vomiting R11.2 Advanced care planning/counseling discussion Z71.89 Comfort measures only status Z51.5 Palliative care by specialist Z51.5 Additional Codes Advanced Care Planning - 52331 Advanced Care Planning Additional 30 Min: 56105 Advanced Care Planning Additional 30 Min ([id number]) Comment [id number], [id number]
[2025-03-03] MEDS ORDERED: NALOXONE HCL 0.4 MG/1 ML VIAL/CARP IV PRN (12:37)
[2025-03-03] MEDS: STAT IV Infusion **Titration per Protocol STA (12:47)
[2025-03-03] MEDS: HYDROmorphone 100 MG/100 ML BAG IV SCH (12:47)
[2025-03-03] MEDS: SODIUM CHLORIDE 0.9% 1,000 ML IV SCH (13:34)
--- NOTE | 2025-03-03 18:33 | Hospitalist Progress Note ---
Date of Service March 03, 2025 Assessment & Plan (1) Comfort measures only status: (2) Malignant neoplasm of breast metastatic to bone: Plan This patient is a 34yo female with history of metastatic breast cancer (lesions to spine, lung, liver, brain) presenting with intractable vomiting with hematemesis and pancytopenia. 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 During hospital stay she had radiation to the stomach which has improved some of her symptoms and she is able to tolerate clear liquids. She also developed candidemia bacteremia due to TPN use through her port which has now been discontinued. She is now transition to [facility]/inpatient hospice # Comfort measures only status-patient and are agreeable to going on inpatient hospice. They would like to continue IV antibiotics and fluids as long as she is awake and alert and able to interact with family. - Continue pain control with fentanyl patch increased to 50 mcg on 03/02 - Palliative medicine change to morphine HVAC LEAD - Lorazepam, Zofran for nausea - Robinul or hyoscyamine for secretions # Neutropenic fever/bacteremia/candidemia-Binta glabrata and Staphylococcus epidermidis, as well as Micrococcus luteus and Brevibacterium ravenspurgense growing blood cultures (from port and peripheral) from 02/27 when she spiked a fever. Added caspofungin and stopped TPN. No ability to remove port due to severe thrombocytopenia. Discontinued use of port. No further fevers. With neutropenia Now discontinuing all IV fluids and IV antibiotics as per palliative medicine discussion with family on 03/03 - No further lab draws or antibiotics to be given - Okay to use port if poor access otherwise #Epistaxis-having epistaxis secondary to severe thrombocytopenia. None since 02/28. Hemoglobin did drop to 7.8 and remained stable - Continue Afrin nasal spray as needed and platelet transfusion as needed - Left tamponade rhino rocket at bedside if needed. Likely to recur with her thrombocytopenia #Metastatic breast cancer / malignant gastric outlet obstruction / hematemesis / gastritis-After discussion with oncology both here and [place] there are no further chemotherapy options for her given her GOO and bone marrow involvement- Finished radiation to abdomen 02/23 which likely will help hematemesis but less likely to help gastric outlet obstruction. Started radiation to breast 02/27 for pain although she elected to stop this on 02/28. -Continue Carafate, PPI - Advance diet to regular-tolerating so far perhaps due to improvement with radiation -continue on ondansetron scheduled, lorazepam as needed for anxiety or agitation, olanzapine 10 mg twice daily as needed for severe nausea, and Compazine scheduled #Anemia-Secondary to hematemesis + bone marrow infiltration of cancer. Total 4 units packed RBCs this admission.. Hgb dropped further to 7.8-family and patient wish for transfusions if still awake and able to interact with family -No further lab draws or transfusions #Thrombocytopenia / Neutropenia-neutropenia worsening with bacteremia/candidemia. Overall pancytopenia secondary to bone marrow involvement but also an acute drop likely secondary to sepsis/infection.Total 4 unit platelets this admission. Platelets improved to 17 -Neutropenic isolation precautions and gave 1 dose of Neupogen given active infection No further transfusions or lab draws #Cancer related pain Appreciate management of this from palliative care - Fentanyl patch started 02/22, increased to 50 mcg on 03/02 Morphine IV HVAC LEAD #Ingrown toenail s/p bedside procedure by podiatry on 02/17, healing well #Anxiety -Lorazepam PRN -Continue Escitalopram #VTE Prophylaxis -none needed on comfort measures #Disposition - continue on med/surg, GIP/inpatient hospice If getting significantly worse, call right away if he is not present so that he and his family have time to get here to be here for when she passes away Admission and Anticipated Discharge Date Admission Date: March 02, 2025 Subjective Patient comfortable, no diarrhea or vomiting today, tolerating solid foods. When outside with her in the wheelchair. Discussed her care with her for 30 minutes Physical Exam Constitutional: no acute distress Respiratory: normal respiratory effort Results & Data Results & Data Vital Signs (Past 12 Hours) Vital Signs O2 Del Method 03/03/25 12:57 Room Air PG Care Time/CCT Total # of Minutes Spent Total Time Spent with Patient: Total time spent is greater than 50% in coordination of care (as documented) at patient's floor/unit and/or counseling patient: Coding Level of Care Code 43080 SUB INP/OBS CARE 07/02MIN Diagnoses Comfort measures only status Z51.5 Malignant neoplasm of breast metastatic to bone C50.919; C79.51
[2025-03-03] MEDS: diphenhydrAMINE 50 MG/ML VIAL IV PRN (19:48)
[2025-03-04] MEDS: LORazepam 0.5 MG TAB SL PRN (03:21)
--- NOTE | 2025-03-04 07:59 | Hospitalist Progress Note ---
Date of Service March 04, 2025 Assessment & Plan (1) Comfort measures only status: (2) Malignant neoplasm of breast metastatic to bone: Plan This patient is a 34yo female with history of metastatic breast cancer (lesions to spine, lung, liver, brain) presenting with intractable vomiting with hematemesis and pancytopenia. 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 During hospital stay she had radiation to the stomach which has improved some of her symptoms and she is able to tolerate clear liquids. She also developed candidemia bacteremia due to TPN use through her port which has now been discontinued. She is now transition to [facility]/inpatient hospice # Comfort measures only status-patient and are agreeable to going on inpatient hospice. They would like to continue IV antibiotics and fluids as long as she is awake and alert and able to interact with family. 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 Added caspofungin and stopped TPN. No ability to remove port due to severe thrombocytopenia. Discontinued use of port. No further fevers. 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 Started radiation to breast 02/27 for pain although she elected to stop this on 02/28. - Continue Carafate, PPI - Advance diet to regular-tolerating so far perhaps due to improvement with radiation - Continue on ondansetron scheduled, lorazepam as needed for anxiety or agitation, olanzapine 10 mg twice daily as needed for severe nausea, and Compazine scheduled #Anemia-Secondary to hematemesis + bone marrow infiltration of cancer. Total 4 units packed RBCs this admission.. Hgb dropped further to 7.8-family and patient wish for transfusions if still awake and able to interact with family -No further lab draws or transfusions #Thrombocytopenia / Neutropenia-neutropenia worsening with bacteremia/candidemia. Overall pancytopenia secondary to bone marrow involvement but also an acute drop likely secondary to sepsis/infection.Total 4 unit platelets this admission. Platelets improved to 17 -Neutropenic isolation precautions and gave 1 dose of Neupogen given active infection No further transfusions or lab draws #Cancer related pain Appreciate management of this from palliative care - Fentanyl patch started 02/22, increased to 50 mcg on 03/02 Morphine IV MANGANESE WHEELER #Anxiety -Lorazepam PRN -Continue Escitalopram #Epistaxis-having epistaxis secondary to severe thrombocytopenia. None since 02/28. Hemoglobin did drop to 7.8 and remained stable - Continue Afrin nasal spray as needed and platelet transfusion if needed - Left tamponade rhino rocket at bedside if needed. Likely to recur with her thrombocytopenia #VTE Prophylaxis -none needed on comfort measures #Disposition - continue on med/surg, [facility]/inpatient hospice If condition significantly worsens and no family present at bedside, call [facility] right away so they are able to arrive and be with her before she passes away Admission and Anticipated Discharge Date Admission Date: March 02, 2025 Supervising Physician Co-Signing Physician Notes I personally examined the patient and verified all tan points of history and exam, discussed case, and agree with decision making with Dr Power No new complaints. Seems somewhat confused today. Trying to get out of bed to go to the bathroom. SUPERVISOR DRILLING [employer] SHOOTING was able to assist her. In discussion with nursing, pain has been under control. Vitals noted. She is awake but easily confused, does not appear to be in pain or distress, does appear a bit unstable on her feet (but SUPERVISOR DRILLING [employer] SHOOTING was able to assist) breathing unlabored. No accessory muscle use. Progressive/metastatic breast cancer failing treatment, inpatient hospice comfort measures onlyfortunately comfortable. Continue current care. Subjective NAEO. Patient comfortable, does report back pain but says it's as controlled as it ever gets. No diarrhea or vomiting today, tolerating solid foods. No new needs Review of Systems Review of Systems: Negative except as noted in HPI Physical Exam Physical Exam: Gen: AOx3, Resting in bed, NAD HEENT: NCAT, normal conjunctiva, MMM CV: RRR, no m/r/g, S1/S2 normal, no LE edema Resp: CTAB, symmetrical chest rise, breathing non-labored/no increased WOB Abd: Soft, NT/ND, +BS, no HSM Skin: Warm, dry, well-perfused, no rashes bruising or other lesions appreciated Resident Activity Tracking Resident Involvement: Resident Care Provided Care Provided: Adult [facility] Medicine
--- NOTE | 2025-03-04 13:12 | Communication Note ---
Date of Service: March 04, 2025 Palliative Medicine [employer] AUG/ utilization reviewed. pt had an additional MS 4mg IV given for BTP. therefore, will modify MAINTENANCE AND REPAIR WORKER only MS as follows: MS 2mg bolus prn q20min, max hourly dose 6mg. No change to MS IVP 4mg dose for severe BTP unrelieved by MAINTENANCE AND REPAIR WORKER New orders written. TS 15min, pt not seen, NO charge submitted=. Thank you for allowing us to participate in the ongoing care of this patient. Please page with any additional concerns. Ele Johnson DNP Director, Palliative Medicine
--- NOTE | 2025-03-04 15:50 | Billing Data ---
Date of Service March 04, 2025 Coding Level of Care Code 08917 SUB INP/OBS CARE
--- NOTE | 2025-03-05 07:06 | Hospitalist Progress Note ---
Date of Service March 05, 2025 Assessment & Plan (1) Comfort measures only status: (2) Malignant neoplasm of breast metastatic to bone: Plan This patient is a 34yo female with history of metastatic breast cancer (lesions to spine, lung, liver, brain) presenting with intractable vomiting with hematemesis and pancytopenia. 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 During hospital stay she had radiation to the stomach which has improved some of her symptoms and she is able to tolerate clear liquids. She also developed candidemia bacteremia due to TPN use through her port which has now been discontinued. 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 # Comfort measures only status-patient and are agreeable to going on inpatient hospice. If condition significantly worsens and no family present at bedside, call right away so they are able to arrive and be with her before she passes away - Continue pain control with fentanyl patch increased to 50 mcg on 03/02 - Palliative medicine change to morphine ALTERATIONS SUPERVISOR - Lorazepam, Zofran for nausea - Robinul or hyoscyamine for secretions # Neutropenic fever/bacteremia/candidemia-Binta glabrata and Staphylococcus epidermidis, as well as Micrococcus luteus and Brevibacterium ravenspurgense growing blood cultures (from port and peripheral) from 02/27 when she spiked a f ever. Added caspofungin and stopped TPN. No ability to remove port due to severe thrombocytopenia. Discontinued use of port. No further fevers. With neutropenia - IV fluids and IV antibiotics stopped as per palliative medicine discussion with family on 03/03 - No further lab draws or antibiotics to be given - Okay to use port if poor access otherwise #Metastatic breast cancer / malignant gastric outlet obstruction / hematemesis / gastritis-After discussion with oncology both here and in [place], there are no further chemotherapy options for her given her gastric outlet obstruction and bone marrow involvement. Finished radiation to abdomen 02/23, which likely will help hematemesis but less likely to help GOO. Started radiation to breast 02/27 for pain but elected to stop on 02/28. - Continue Carafate, PPI - Advance diet to regular-tolerating so far perhaps due to improvement with radiation - Continue on ondansetron scheduled, lorazepam as needed for anxiety or agitation, olanzapine 10 mg twice daily as needed for severe nausea, and Compazine scheduled #Anemia-Secondary to hematemesis + bone marrow infiltration of cancer. Total 4 units packed RBCs this admission.. Hgb dropped further to 7.8-family and patient wish for transfusions if still awake and able to interact with family -No further lab draws or transfusions #Thrombocytopenia / Neutropenia-neutropenia worsening with bacteremia/candidemia. Overall pancytopenia secondary to bone marrow involvement but also an acute drop likely secondary to sepsis/infection.Total 4 unit platelets this admission. Platelets improved to 17 -Neutropenic isolation precautions and gave 1 dose of Neupogen given active infection No further transfusions or lab draws #Cancer related pain Appreciate management of this from palliative care - Fentanyl patch started 02/22, increased to 50 mcg on 03/02 Morphine IV ALTERATIONS SUPERVISOR #Anxiety -Lorazepam PRN -Continue Escitalopram #Epistaxis-having epistaxis secondary to severe thrombocytopenia. None since 02/28. Hemoglobin did drop to 7.8 and remained stable - Continue Afrin nasal spray as needed and platelet transfusion if needed - Left tamponade rhino rocket at bedside if needed. Likely to recur with her thrombocytopenia #VTE Prophylaxis -none needed on comfort measures #Disposition - continue on med/surg, [facility]/inpatient hospice Admission and Anticipated Discharge Date Admission Date: March 02, 2025 Supervising Physician Co-Signing Physician Notes I personally examined the patient and verified all tan points of history and exam, discussed case, and agree with decision making with Dr Jannet Renae whenever I entered the room. Allowed patient to rest. In discussion with nursing, pain has been under good control. No new needs identified. Sleeping, breathing unlabored, appears to be in no distress or pain. Progressive/metastatic breast cancer failing treatment, inpatient hospice comfort measures onlyfortunately comfortable. Continue current care. No apparent need for changes today. Subjective NAEO. Appears more tired and weak than yesterday. Ok po intake. No diarrhea or vomiting. No new needs Review of Systems Review of Systems: Negative except as noted in HPI Physical Exam Physical Exam: Gen: AOx3, appears weaker than on previous exam HEENT: NCAT, normal conjunctiva, MMM CV: RRR, no m/r/g, S1/S2 normal Resp: Symmetrical chest rise, breathing non-labored Abd: Soft, NT/ND, +BS Skin: Warm, dry, well-perfused, no rashes bruising or other lesions Results & Data Results & Data Vital Signs (Past 12 Hours) Vital Signs O2 Del Method 03/04/25 20:15 Room Air Resident Activity Tracking Resident Involvement: Resident Care Provided Care Provided: Adult Hospital Medicine
--- NOTE | 2025-03-05 10:04 | Billing Data ---
Date of Service March 05, 2025 Coding Level of Care Code 04338 SUB INP/OBS CARE
[2025-03-06 00:01] VITALS: BP 116/74; PULSE 60; RESP 14; TEMP 97.7; O2SAT 96
--- NOTE | 2025-03-06 07:21 | Hospitalist Progress Note ---
Date of Service March 06, 2025 Assessment & Plan (1) Comfort measures only status: (2) Malignant neoplasm of breast metastatic to bone: Plan This patient is a 34yo female with history of metastatic breast cancer (lesions to spine, lung, liver, brain) presenting with intractable vomiting with hematemesis and pancytopenia. 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 During hospital stay she had radiation to the stomach which has improved some of her symptoms and she is able to tolerate clear liquids. She also developed candidemia bacteremia due to TPN use through her port which has now been discontinued. 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 # Comfort measures only status-patient and are agreeable to going on inpatient hospice. If condition significantly worsens and no family present at bedside, call right away so they are able to arrive and be with her before she passes away - Continue pain control with fentanyl patch increased to 50 mcg on 03/02 - Palliative medicine change to morphine CHIEF DEPUTY CORONER - Lorazepam, Zofran for nausea - Robinul or hyoscyamine for secretions - No imaging after recent fall per pt request- will monitor to continue comfort # Neutropenic fever/bacteremia/candidemia-Binta glabrata and Staphylococcus epidermidis, as well as Micrococcus luteus and Brevibacterium ravenspurgense growing blood cultures (from port and peripheral) from 02/27 when she spiked a fever. Added caspofungin and stopped TPN. No ability to remove port due to severe thrombocytopenia. Discontinued use of port. No further fevers. With neutropenia - IV fluids and IV antibiotics stopped as per palliative medicine discussion with family on 03/03 - No further lab draws or antibiotics to be given - Okay to use port if poor access otherwise #Metastatic breast cancer / malignant gastric outlet obstruction / hematemesis / gastritis-After discussion with oncology both here and in [place], there are no further chemotherapy options for her given her gastric outlet obstruction and bone marrow involvement. Finished radiation to abdomen 02/23, which likely will help hematemesis but less likely to help GOO. Started radiation to breast 02/27 for pain but elected to stop on 02/28. - Continue Carafate, PPI - Advance diet to regular-tolerating so far perhaps due to improvement with ra diation - Continue on ondansetron scheduled, lorazepam as needed for anxiety or agitation, olanzapine 10 mg twice daily as needed for severe nausea, and Compazine scheduled #Anemia-Secondary to hematemesis + bone marrow infiltration of cancer. Total 4 units packed RBCs this admission.. Hgb dropped further to 7.8-family and patient wish for transfusions if still awake and able to interact with family -No further lab draws or transfusions #Thrombocytopenia / Neutropenia-neutropenia worsening with bacteremia/candidemia. Overall pancytopenia secondary to bone marrow involvement but also an acute drop likely secondary to sepsis/infection.Total 4 unit platelets this admission. Platelets improved to 17 -Neutropenic isolation precautions and gave 1 dose of Neupogen given active infection No further transfusions or lab draws #Cancer related pain Appreciate management of this from palliative care - Fentanyl patch started 02/22, increased to 50 mcg on 03/02 Morphine IV CHIEF DEPUTY CORONER #Anxiety -Lorazepam PRN -Continue Escitalopram #Epistaxis-having epistaxis secondary to severe thrombocytopenia. None since 02/28. Hemoglobin did drop to 7.8 and remained stable - Continue Afrin nasal spray as needed and platelet transfusion if needed - Left tamponade rhino rocket at bedside if needed. Likely to recur with her thrombocytopenia #VTE Prophylaxis -none needed on comfort measures #Disposition - continue on med/surg, [facility]/inpatient hospice Admission and Anticipated Discharge Date Admission Date: March 02, 2025 Supervising Physician Co-Signing Physician Notes Attending attestation Pt seen and examined in concert with Dr. Elizondo. In agreement with the documented findings as noted in the resident documentation with any exceptions or additions as noted here. Resting in bed at time of evaluation, pain adequately controlled on present r egimen, though visibly somnolent and having some difficulty phonating at times. VS as noted. General inpatient hosice care in thet setting of metastatic breast cancer with complication as noted with eminent - palliative medicine consult appreciated - agree w/ optimization of medication regimen to minimize sedation while maximizing patient comfort. Else see resident documentation as noted. Subjective Overnight, pt fell in her room getting up to use the restroom. Pt denied hitting her head or loss of consciousness, but impact of fall was on her left side/hip. She declined imaging at that time. This morning, pt reports bruising at lateral left side. No significant increase in pain. Able to move left UE/LE without limitation. Pt denies CP, SOB, fever/chills, headaches, dizziness. She notes decreased appetite, but no N/V/D. Review of Systems Review of Systems: Negative except as noted in HPI Physical Exam Physical Exam: Gen: A&Ox3, but fatigued HEENT: NCAT, normal conjunctiva, MMM CV: RRR, no m/r/g, S1/S2 normal, 1+ edema at B ankles/feet Resp: CTAB,Symmetrical chest rise, breathing non-labored Abd: Soft, NT/ND, +BS Skin: Warm, dry, well-perfused, no rashes. L flank and lateral hip bruising noted MSK: Left hip, knee, ankle ROM with WFL Results & Data Results & Data Vital Signs (Past 12 Hours) Vital Signs Temp Pulse Resp BP Pulse Ox O2 Del Method 03/06/25 00:00 36.5 C 60 14 116/74 96 Room Air 03/05/25 20:15 Room Air Resident Activity Tracking Resident Involvement: Resident Care Provided Care Provided: Adult Hospital Medicine
--- NOTE | 2025-03-06 10:06 | Palliative Care Progress Note ---
Date of Service March 06, 2025 Assessment & Plan (1) Cancer related pain: Plan: Pt started on ZMT OPERATOR morphine for pain over weekend. Today she is obtunded and not consistently alert enough for ZMT OPERATOR use. After discussion with spouse and coat hanger shaper machine operator, ZMT OPERATOR discontinued. Continue: duragesic 50 Mcg/Hr 1 patch TD Q3D@0900 MIN Morphine 4mg IV Q1h PRN for BTP or Roxanol 10mg SL/PO Q3h PRN for BTP given ongoing N/V continue IV morphine for now, encouraged preference to PO/SL route if pt able to tolerate. (2) Refractory nausea and vomiting: Plan: Pt c/o intractable N/V for about six weeks - constant nausea that frequently worsens causing emesis, but the underlying nausea has been constant and refractory to medications for several weeks. She previously has had 4mg of zofran which offers no relief. She reports relief from rotating zofran and compazine previously for nausea after cancer treatments, but this time nothing worked so she came to hospital. She shared that her nausea had improved and she was tolerating sips after 24hr of RTC alternating zofran/compazine, but it worsened and Zyprexa was added with marginal improvement of nausea. 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 Utility of venting NGT limited by recurrent epistaxis and thrombocytopenia. Continue Zyprexa 10mg ODT q12h PRN for refractory nausea Continue Zofran 8mg ODT q6hr MIN alternate zofran/compazine so one or other is given every three hours MIN until nausea relieved then PRN Continue Compazine 10mg PO q6hr MIN Continue Carafate, PPI, Pepcid, TPN; consider adding PPI, pepcid to TPN for ease of use at home. (3) Advanced care planning/counseling discussion: Plan: Goals clearly established, pt remains GIP Hospice. (4) Comfort measures only status: Plan: Remains on GIP status - requiring multiple IV medicaions for N/V as well as frequent PRNs for pain. Pt has had dramatic decline in mental status over weekend, now obtunded with pitting edema to calf level on BLE. She has little to no PO intake and has not been able to tolerate PO meds. EOL Hiv/Aids Care Nurse assisting with legacy work. (5) Palliative care by specialist: Plan: Met with pt and her spouse along with coat hanger shaper machine operator, patient had minimal participation with discussion due to lethargy. Spent greater than 30 minutes discussing anticipatory guidance. Discussed with [place] plan to discontinue ZMT OPERATOR given pt's lethargy and try to transition to SL medications. Noted pitting edema to BLE, color changes and cool extremities c/w transition to active dying. Discussed with Austin that timing of is unpredictable, but these are signs that time is short. Anticipatory guidance offered. Discussed changes pt may move through in the dying process inc luding but not limited to sleeping more, disorientation when awake, restlessness, diminished senses/inability to respond to stimulus although ability to be aware of them remains intact longer, and changes in body temperatures, skin changes/mottling/cyanosis, respiratory pattern changes, and oral secretions. Family verbalized understanding. The goal is to assure a peaceful . Palliative care will continue to follow for ongoing EOL pt care and family support. (6) Lethargy: Plan As above. Admission and Anticipated Discharge Date Admission Date: March 02, 2025 Subjective Pt drowsy but arousable, she states that pain is well managed, but that she does not note a difference with ZMT OPERATOR. Pt is lethargic and falls asleep frequently during my visit. BSRN reports pt had witnessed GLF landing on her left hip while getting up to use the restroom. There was no impact to head or LOC and pt reportedly declined imaging at the time. This morning, pt reports c/o poor appetite, but denies N/V/D. Pt continues to require IV medications for EOL symptom management. Review of Systems Review of Systems: All systems reviewed & are unremarkable except as noted in Subjective Physical Exam Constitutional: WD/WN, vitals as above Eyes: PERRL, conjunctivae normal, anicteric sclerae ENMT: Ears: no hearing impairment Neck: trachea midline, no thyromegaly Respiratory: normal respiratory effort, lungs clear to auscultation Cardiovascular: Rate/Rhythm: regular rate and regular rhythm Extremities: + edema and + vascular access device Gastrointestinal (Abdomen): normal bowel sounds, soft, nontender, no hepatos plenomegaly Skin: no rashes, warm and dry + pallor Neurologic: moves all extremities and + obtunded Results & Data Vital Signs (Past 12 Hours) Vital Signs Temp Pulse Resp BP Pulse Ox O2 Del Method 03/06/25 07:25 Room Air 03/06/25 00:00 36.5 C 60 14 116/74 96 Room Air Laboratory Results No further labs or diagnostics in concert with comfort directed care. Diagnostic Findings No further labs or diagnostics in concert with comfort directed care. Medications Administered Current Inpatient Medications Diphenhydramine HCl (Diphenhydramine 50 Mg/Ml Vial) 25 mg IV Q6H PRN PRN Reason: nausea with morphine Stop: 04/01/25 18:05 Last Admin: 03/05/25 20:26 Dose: 25 mg Diphenoxylate HCl/Atropine (Diphenoxylate/Atropine 2.5/0.025mg Tab) 1 tab PO Q6H PRN PRN Reason: Diarrhea Stop: 04/01/25 14:26 Last Admin: 03/06/25 05:23 Dose: 1 tab Escitalopram Oxalate (Escitalopram Oxalate 10 Mg Tab) 10 mg PO HS MIN Stop: 04/01/25 20:59 Last Admin: 03/05/25 20:22 Dose: 10 mg Fentanyl (Fentanyl 50 Mcg/Hr Tdsy) 1 patch TD Q3D@0900 MIN Stop: 03/19/25 08:59 Last Admin: 03/05/25 09:21 Dose: 1 patch Glycopyrrolate (Glycopyrrolate 0.2 Mg/Ml Vial) 0.4 mg IV Q4H PRN PRN Reason: Rattling Secretions or Pulm Congestion Stop: 04/01/25 14:22 Hyoscyamine (Hyoscyamine Sulfate 0.125 Mg Tab) 0.125 mg SL Q4H PRN PRN Reason: Secretions or Pulm Congestion Stop: 04/01/25 14:22 Pantoprazole Sodium (Protonix) 40 mg in 10 mls @ 5 mls/min IV BID MIN Stop: 04/01/25 20:59 Last Admin: 03/06/25 07:18 Dose: 5 mls/min Prochlorperazine 5 mg/ Syringe 5 mls @ 5 mls/min IV Q6H MIN Stop: 04/01/25 18:59 Last Admin: 03/06/25 17:08 Dose: 5 mls/min Lorazepam 1 mg/ Syringe 1 mls @ 2 mls/min IV Q4H PRN; Protocol PRN Reason: ANXIETY/AGITATION,NAUSEA,SPASM Stop: 04/05/25 08:49 Last Admin: 03/06/25 12:54 Dose: 2 mls/min Lorazepam (Lorazepam 0.5 Mg Tab) 0.5 mg SL Q4H PRN PRN Reason: anxiety Stop: 04/01/25 14:26 Last Admin: 03/04/25 03:21 Dose: 0.5 mg Melatonin (Melatonin 3 Mg Tab) 3 mg PO HS PRN PRN Reason: insomnia Stop: 04/01/25 20:59 Miscellaneous (Fentanyl Patch Remove & Waste) 1 each N/A Q3D@0859 [facility] Stop: 04/04/25 08:58 Last Admin: 03/05/25 09:22 Dose: 1 each Miscellaneous (Check Fentanyl Patch Placement) 1 each N/A QS [facility] Stop: 04/01/25 15:59 Last Admin: 03/06/25 17:07 Dose: 1 each Morphine Sulfate (Morphine Sulfate 10 Mg/0.5 Ml Udp) 10 mg PO Q2H PRN PRN Reason: Pain or Respiratory Distress Stop: 03/16/25 14:22 Morphine Sulfate (Morphine Sulfate 4 Mg/Ml 1 Ml Carp\Vial) 4 mg IV Q1H PRN PRN Reason: Breakthrough Pain Stop: 03/16/25 14:22 Last Admin: 03/05/25 11:21 Dose: 4 mg Olanzapine (Olanzapine Zydis 10 Mg Orally Dis. Tab) 10 mg PO Q12 PRN PRN Reason: severe nausea Stop: 04/01/25 20:59 Last Admin: 03/05/25 21:32 Dose: 10 mg Ondansetron HCl (Ondansetron 8mg Od Tab) 8 mg PO TID [facility] Stop: 04/01/25 20:59 Last Admin: 03/06/25 12:35 Dose: 8 mg Simethicone (Simethicone 80 Mg Chew) 80 mg PO Q6H PRN PRN Reason: Flatulence Stop: 04/02/25 10:00 Last Admin: 03/03/25 10:32 Dose: 80 mg Sucralfate (Sucralfate 1 Gm/10 Ml Udc) 1 gm PO QID [facility] Stop: 04/01/25 16:59 Last Admin: 03/06/25 17:08 Dose: 1 gm PG Care Time/CCT Total # of Minutes Spent Total Time Spent with Patient: Total time spent is greater than 50% in coordination of care (as documented) at patient's floor/unit and/or counseling patient: Advanced Care Planning 44401 Advanced Care Planning 30 Min C[place] [address] SUB INP/OBS CARE 2/35MIN Patient Type Established History Expanded Problem Focused Exam Expanded Problem Focused Medical Decision Making Moderate Complexity Diagnoses Cancer related pain G89.3 Refractory nausea and vomiting R11.2 Advanced care planning/counseling discussion Z71.89 Comfort measures only status Z51.5 Palliative care by specialist Z51.5 Lethargy R53.83 Additional Codes Advanced Care Planning - 35238 Advanced Care Planning 30 Min: 99561 Advanced Care Planning 30 Min ([id number])
[2025-03-06] MEDS: LORazepam Inj 1 MG in SYRINGE 0.5 ML IV PRN (12:54)
--- NOTE | 2025-03-07 07:04 | Hospitalist Progress Note ---
Date of Service March 07, 2025 Assessment & Plan (1) Comfort measures only status: (2) Malignant neoplasm of breast metastatic to bone: Plan This patient is a 34yo female with history of metastatic breast cancer (lesions to spine, lung, liver, brain) presenting with intractable vomiting with hematemesis and pancytopenia. Patient had an [place] 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 During hospital stay she had radiation to the stomach which has improved some of her symptoms and she is able to tolerate clear liquids. She also developed candidemia bacteremia due to TPN use through her port which has now been discontinued. 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 # Comfort measures only status-patient and are agreeable to going on inpatient hospice. If condition significantly worsens and no family present at bedside, call right away so they are able to arrive and be with her before she passes away. Pt with decreased A & O today, possibly due to me dications for pain and insomnia. 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 Added caspofungin and stopped TPN. No ability to remove port due to severe thrombocytopenia. Discontinued use of port. No further fevers. With neutropenia - IV fluids and IV antibiotics stopped as per palliative medicine discussion with family on 03/03 - No further lab draws or antibiotics to be given - Okay to use port if poor access otherwise #Metastatic breast cancer / malignant gastric outlet obstruction / hematemesis / gastritis-After discussion with oncology both here and in [place], there are no further chemotherapy options for her given her gastric outlet obstruction and bone marrow involvement. Finished radiation to abdomen 02/23, which likely will help hematemesis but less likely to help GOO. Started radiation to breast 02/27 for pain but elected to stop on 02/28. - Continue Carafate, PPI - Advance diet to regular-tolerating so far perhaps due to improvement with radiation - Continue on ondansetron scheduled, lorazepam as needed for anxiety or agitation, olanzapine 10 mg twice daily as needed for severe nausea, and Compazine scheduled #Anemia-Secondary to hematemesis + bone marrow infiltration of cancer. Total 4 units packed RBCs this admission.. Hgb dropped further to 7.8-family and patient wish for transfusions if still awake and able to interact with family -No further lab draws or transfusions #Thrombocytopenia / Neutropenia-neutropenia worsening with bacteremia/candidemia. Overall pancytopenia secondary to bone marrow involvement but also an acute drop likely secondary to sepsis/infection.Total 4 unit platelets this admission. Platelets improved to 17 -Neutropenic isolation precautions and gave 1 dose of Neupogen given active infection No further transfusions or lab draws #Cancer related pain Appreciate management of this from palliative care - Fentanyl patch started 02/22, increased to 50 mcg on 03/02 Morphine IV TREE TRIMMING SUPERVISOR #Anxiety -Lorazepam PRN -Continue Escitalopram #Epistaxis-having epistaxis secondary to severe thrombocytopenia. None since 02/28. Hemoglobin did drop to 7.8 and remained stable - Continue Afrin nasal spray as needed and platelet transfusion if needed - Left tamponade rhino rocket at bedside if needed. Likely to recur with her thrombocytopenia #VTE Prophylaxis -none needed on comfort measures #Disposition - continue on med/surg, GIP/inpatient hospice Admission and Anticipated Discharge Date Admission Date: March 02, 2025 Supervising Physician Co-Signing Physician Notes Attending attestation Pt seen and examined in concert with Dr. Elizondo. In agreement with the documented findings as noted in the resident documentation with any exceptions or additions as noted here. Resting in bed at time of evaluation, pain adequately controlled on present regimen. Arousable but somnolent and somewhat disoriented, though easily reoriented. VS as noted. General inpatient hospice care in thet setting of metastatic breast cancer with complication as noted with eminent - palliative medicine consult appreciated - add scheduled oral APAP for additional pain control. Listed history/intolerance to morphine (itching) so will transition to equivalent hydromorophone IV for PRN control. No use of lorazepam and consistent nightly use of diphenhydramine with daytime sedation, so will trial transition from diphenhydramine to lorazepam and re-assess daytime somnolence based on same. Palliative care input appreciated. Else see resident documentation as noted. Subjective No acute events overnight. This morning, pt is very sleepy, but reports no complaints or pain or discomfort. Per nursing pt required 3 doses of morphine overnight. Review of Systems Review of Systems: Negative except as noted in HPI Physical Exam Physical Exam: Gen: NAD, pt groggy and sleeping. Awakes to voices and answers with one word HEENT: NCAT, normal conjunctiva, MMM CV: RRR, no m/r/g, S1/S2 normal, 2+ edema at B ankles/feet Resp: CTAB,Symmetrical chest rise, breathing non-labored Abd: Soft, NT/ND, hypoactive BS Skin: Warm, dry, well-perfused, no rashes. L flank and lateral hip bruising noted Results & Data Results & Data Vital Signs (Past 12 Hours) Vital Signs O2 Del Method 03/06/25 22:18 Room Air Resident Activity Tracking Resident Involvement: Resident Care Provided Care Provided: Adult Hospital Medicine
[2025-03-07] MEDS: HEPARIN 100 UNIT/ML 5ML FLUSH ONE (07:58)
[2025-03-07] MEDS: ACETAMINOPHEN 500 MG TAB PO SCH (11:26)
[2025-03-07] MEDS: HYDROmorphone INJ 0.5 MG/0.5 ML SYR IV PRN (11:48)
--- NOTE | 2025-03-07 12:27 | Palliative Care Progress Note ---
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 She is more alert today. Continue: duragesic 50 Mcg/Hr 1 patch TD Q3D@0900 MIN Morphine 4mg IV Q1h PRN for BTP or Roxanol 10mg SL/PO Q3h PRN for BTP given ongoing N/V continue IV morphine for now, encouraged preference to PO/SL route if pt able to tolerate. (2) Refractory nausea and vomiting: Plan: Pt c/o intractable N/V for about six weeks - constant nausea that frequently worsens causing emesis, but the underlying nausea has been constant and refractory to medications for several weeks. She previously has had 4mg of zofran which offers no relief. She reports relief from rotating zofran and compazine previously for nausea after cancer treatments, but this time nothing worked so she came to hospital. She shared that her nausea had improved and she was tolerating sips after 24hr of RTC alternating zofran/compazine, but it worsened and Zyprexa was added with marginal improvement of nausea. 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 Utility of venting NGT limited by recurrent epistaxis and thrombocytopenia. Continue Zyprexa 10mg ODT q12h PRN for refractory nausea Continue Zofran 8mg ODT q6hr MIN alternate zofran/compazine so one or other is given every three hours MIN until nausea relieved then PRN Continue Compazine 10mg PO q6hr MIN Continue Carafate, PPI, Pepcid, TPN; consider adding PPI, pepcid to TPN for ease of use at home. (3) Advanced care planning/counseling discussion: Plan: Goals clearly established, pt remains GIP Hospice. (4) Comfort measures only status: Plan: Remains on GIP status - requiring multiple IV medicaions for N/V as well as frequent PRNs for pain. Pt remains drowsy but arousable. Pitting edema to calf level on BLE. She has little to no PO intake and has not been able to tolerate PO meds. EOL Disk Operator assisting with legacy work. (5) Palliative care by specialist: Plan: Palliative care will continue to follow for ongoing EOL pt care and family support. (6) Lethargy: Plan As above. Admission and Anticipated Discharge Date Admission Date: March 02, 2025 Subjective Pt more alert today, continues to require frequent PRN medications for pain. Her nausea has been well controlled with multimodal antiemetic medications. She continues to require IV medications for EOL symptom management. Review of Systems Review of Systems: All systems reviewed & are unremarkable except as noted in Subjective Physical Exam Constitutional: WD/WN, vitals as above Eyes: PERRL, conjunctivae normal, anicteric sclerae ENMT: Ears: no hearing impairment Neck: trachea midline, no thyromegaly Respiratory: normal respiratory effort, lungs clear to auscultation Cardiovascular: Rate/Rhythm: regular rate and regular rhythm Extremities: + edema and + vascular access device Gastrointestinal (Abdomen): normal bowel sounds, soft, nontender, no hepatosplenomegaly Skin: no rashes, warm and dry + pallor Neurologic: moves all extremities and + obtunded Results & Data Vital Signs (Past 12 Hours) Vital Signs O2 Del Method 03/07/25 08:00 Room Air Laboratory Results No further labs or diagnostics in concert with comfort directed care. Diagnostic Findings No further labs or diagnostics in concert with comfort directed care. Medications Administered Current Inpatient Medications Acetaminophen (Acetaminophen 500 Mg Tab) 1,000 mg PO Q8 [facility] Stop: 04/06/25 10:59 Last Admin: 03/07/25 11:26 Dose: Not Given Diphenoxylate HCl/Atropine (Diphenoxylate/Atropine 2.5/0.025mg Tab) 1 tab PO Q6H PRN PRN Reason: Diarrhea Stop: 04/01/25 14:26 Last Admin: 03/06/25 05:23 Dose: 1 tab Escitalopram Oxalate (Escitalopram Oxalate 10 Mg Tab) 10 mg PO HS MIN Stop: 04/01/25 20:59 Last Admin: 03/06/25 21:34 Dose: Not Given Fentanyl (Fentanyl 50 Mcg/Hr Tdsy) 1 patch TD Q3D@0900 MIN Stop: 03/19/25 08:59 Last Admin: 03/05/25 09:21 Dose: 1 patch Glycopyrrolate (Glycopyrrolate 0.2 Mg/Ml Vial) 0.4 mg IV Q4H PRN PRN Reason: Rattling Secretions or Pulm Congestion Stop: 04/01/25 14:22 Hydromorphone HCl (Hydromorphone Inj 0.5 Mg/0.5 Ml Syr) 0.5 mg IV Q4H PRN PRN Reason: Pain 6-03/17 Stop: 03/21/25 10:17 Last Admin: 03/07/25 11:48 Dose: 0.5 mg Hyoscyamine (Hyoscyamine Sulfate 0.125 Mg Tab) 0.125 mg SL Q4H PRN PRN Reason: Secretions or Pulm Congestion Stop: 04/01/25 14:22 Pantoprazole Sodium (Protonix) 40 mg in 10 mls @ 5 mls/min IV BID MIN Stop: 04/01/25 20:59 Last Admin: 03/07/25 08:27 Dose: 5 mls/min Prochlorperazine 5 mg/ Syringe 5 mls @ 5 mls/min IV Q6H MIN Stop: 04/01/25 18:59 Last Admin: 03/07/25 11:47 Dose: 5 mls/min Lorazepam 1 mg/ Syringe 1 mls @ 2 mls/min IV Q4H PRN; Protocol PRN Reason: ANXIETY/AGITATION,NAUSEA,SPASM Stop: 04/05/25 08:49 Last Admin: 03/06/25 12:54 Dose: 2 mls/min Lorazepam (Lorazepam 0.5 Mg Tab) 0.5 mg SL Q4H PRN PRN Reason: anxiety Stop: 04/01/25 14:26 Last Admin: 03/04/25 03:21 Dose: 0.5 mg Melatonin (Melatonin 3 Mg Tab) 3 mg PO HS PRN PRN Reason: insomnia Stop: 04/01/25 20:59 Miscellaneous (Fentanyl Patch Remove & Waste) 1 each N/A Q3D@0859 MIN Stop: 04/04/25 08:58 Last Admin: 03/05/25 09:22 Dose: 1 each Miscellaneous (Check Fentanyl Patch Placement) 1 each N/A QS MIN Stop: 04/01/25 15:59 Last Admin: 03/07/25 08:24 Dose: 1 each Morphine Sulfate (Morphine Sulfate 10 Mg/0.5 Ml Udp) 10 mg PO Q2H PRN PRN Reason: Pain or Respiratory Distress Stop: 03/16/25 14:22 Olanzapine (Olanzapine Zydis 10 Mg Orally Dis. Tab) 10 mg PO Q12 PRN PRN Reason: severe nausea Stop: 04/01/25 20:59 Last Admin: 03/05/25 21:32 Dose: 10 mg Ondansetron HCl (Ondansetron 8mg Od Tab) 8 mg PO TID MIN Stop: 04/01/25 20:59 Last Admin: 03/07/25 08:27 Dose: 8 mg Simethicone (Simethicone 80 Mg Chew) 80 mg PO Q6H PRN PRN Reason: Flatulence Stop: 04/02/25 10:00 Last Admin: 03/03/25 10:32 Dose: 80 mg Sucralfate (Sucralfate 1 Gm/10 Ml Udc) 1 gm PO QID [facility] Stop: 04/01/25 16:59 Last Admin: 03/07/25 11:48 Dose: Not Given PG Care Time/CCT Total # of Minutes Spent Total Time Spent with Patient: Total time spent is greater than 50% in coordination of care (as documented) at patient's floor/unit and/or counseling patient: Coding [place] [address] SUB INP/OBS CARE 2/35MIN Patient Type Established History Expanded Problem Focused Exam Expanded Problem Focused Medical Decision Making Moderate Complexity Diagnoses Cancer related pain G89.3 Refractory nausea and vomiting R11.2 Advanced care planning/counseling discussion Z71.89 Comfort measures only status Z51.5 Palliative care by specialist Z51.5 Lethargy R53.83
--- NOTE | 2025-03-08 08:26 | Hospitalist Progress Note ---
Date of Service March 08, 2025 Assessment & Plan (1) Comfort measures only status: (2) Malignant neoplasm of breast metastatic to bone: Plan This patient is a 34yo female with history of metastatic breast cancer (lesions to spine, lung, liver, brain) presenting with intractable vomiting with hematemesis and pancytopenia. 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 During hospital stay she had radiation to the stomach which has improved some of her symptoms and she is able to tolerate clear liquids. She also developed candidemia bacteremia due to TPN use through her port which has now b een discontinued. 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 # Comfort measures only status-patient and are agreeable to going on inpatient hospice. If condition significantly worsens and no family present at bedside, call right away so they are able to arrive and be with her before she passes away. Change of medications including transition to hydrom orphone from morphine and stopping Benadryl has reduced pt's drowsiness while continuing to control pain. - Continue pain control with fentanyl patch increased to 50 mcg on 03/02 - Continue IV Dilaudid 0.5mg q4h - Continue Lorazepam for anxiety or insomnia - Zofran for nausea - Robinul or hyoscyamine for secretions - No imaging after fall on 03/05 per pt request- will monitor to continue comfort # Neutropenic fever/bacteremia/candidemia-Binta glabrata and Staphylococcus epidermidis, as well as Micrococcus luteus and Brevibacterium ravenspurgense growing blood cultures (from port and peripheral) from 02/27 when she spiked a fever. Added caspofungin and stopped TPN. No ability to remove port due to severe thrombocytopenia. Discontinued use of port. No further fevers. With neutropenia - IV fluids and IV antibiotics stopped as per palliative medicine discussion with family on 03/03 - No further lab draws or antibiotics to be given - Okay to use port if poor access otherwise #Metastatic breast cancer / malignant gastric outlet obstruction / hematemesis / gastritis-After discussion with oncology both here and in [place], there are no further chemotherapy options for her given her gastric outlet obstruction and bone marrow involvement. Finished radiation to abdomen 02/23, which likely will help hematemesis but less likely to help GOO. Started radiation to breast 02/27 for pain but elected to stop on 02/28. - Continue Carafate, PPI - Advance diet to regular-tolerating so far perhaps due to improvement with radiation - Continue on ondansetron scheduled, lorazepam as needed for anxiety or agitation, olanzapine 10 mg twice daily as needed for severe nausea, and Compazine scheduled #Anemia-Secondary to hematemesis + bone marrow infiltration of cancer. Total 4 units packed RBCs this admission.. Hgb dropped further to 7.8-family and patient wish for transfusions if still awake and able to interact with family -No further lab draws or transfusions #Thrombocytopenia / Neutropenia-neutropenia worsening with bacteremia/candidemia. Overall pancytopenia secondary to bone marrow involvement but also an acute drop likely secondary to sepsis/infection.Total 4 unit platelets this admission. Platelets improved to 17 -Neutropenic isolation precautions and gave 1 dose of Neupogen given active infection No further transfusions or lab draws #Cancer related pain Appreciate management of this from palliative care - Fentanyl patch started 02/22, increased to 50 mcg on 03/02 Morphine IV FRAME TRIMMER #Anxiety -Lorazepam PRN -Continue Escitalopram #Epistaxis-having epistaxis secondary to severe thrombocytopenia. None since 02/28. Hemoglobin did drop to 7.8 and remained stable - Continue Afrin nasal spray as needed and platelet transfusion if needed - Left tamponade rhino rocket at bedside if needed. Likely to recur with her thrombocytopenia #VTE Prophylaxis -none needed on comfort measures #Disposition - continue on med/surg, GIP/inpatient hospice Admission and Anticipated Discharge Date Admission Date: March 02, 2025 Supervising Physician Co-Signing Physician Notes Attending attestation Pt seen and examined in concert with Dr. Elizondo. In agreement with the documen patti findings as noted in the resident documentation with any exceptions or additions as noted here. Resting in bed at time of evaluation, pain remains controlled on updated regimen with improved somnolence on clinical evaluation. VS as noted. General inpatient hospice care in thet setting of metastatic breast cancer with complication as noted with eminent - palliative medicine consult appreciated - d/c APAP as patient is refusing. Continue current pain control and defer to palliative care if changes are requested. Encourage lorazepam use over diphenhydramine. Palliative care input appreciated. Else see resident documentation as noted. Subjective No acute events overnight. Pt is awake and alert this morning. Pt is no longer getting out of bed to use restroom, using purwik in bed. No appetite. Denies pain Review of Systems Review of Systems: Negative except as noted in HPI Physical Exam Physical Exam: Gen: NAD, Awake and alert HEENT: NCAT, normal conjunctiva, MMM CV: RRR, no m/r/g, S1/S2 normal, 2+ edema at B ankles/feet Resp: CTAB, Symmetrical chest rise, breathing non-labored Abd: Soft, NT/ND, hypoactive BS Skin: Warm, dry, well-perfused, no rashes. Minimal L flank and lateral hip bruising noted Resident Activity Tracking Resident Involvement: Resident Care Provided Care Provided: Adult Hospital Medicine
[2025-03-08] MEDS: MoRPHine SULFATE 10 MG/0.5 ML UDP PO PRN (12:25)
--- NOTE | 2025-03-09 06:59 | Hospitalist Progress Note ---
Date of Service March 09, 2025 Assessment & Plan (1) Comfort measures only status: (2) Malignant neoplasm of breast metastatic to bone: Plan This patient is a 34yo female with history of metastatic breast cancer (lesions to spine, lung, liver, brain) presenting with intractable vomiting with hematemesis and pancytopenia. 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 During hospital stay she had radiation to the stomach which has improved some of her symptoms and she is able to tolerate clear liquids. She also developed candidemia bacteremia due to TPN use through her port which has now b een discontinued. 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 # Comfort measures only status-patient and are agreeable to going on inpatient hospice. If condition significantly worsens and no family present at bedside, call right away so they are able to arrive and be with her before she passes away. Pain appears well controlled with current regimen - Continue pain control with fentanyl patch 50 mcg - Continue IV Dilaudid 0.5mg q4h - Continue Lorazepam for anxiety or insomnia - Zofran for nausea - Robinul or hyoscyamine for secretions # Neutropenic fever/bacteremia/candidemia- - No longer treating with abx - Okay to use port if poor access otherwise #Metastatic breast cancer / malignant gastric outlet obstruction / hematemesis / gastritis-After discussion with oncology both here and in [place], there are no further chemotherapy options for her given her gastric outlet obstruction and bone marrow involvement. Finished radiation to abdomen 02/23, which likely will help hematemesis but less likely to help GOO. Started radiation to breast 02/27 for pain but elected to stop on 02/28. - Continue Carafate, PPI - Continue on ondansetron scheduled, lorazepam as needed for anxiety or agitation, olanzapine 10 mg twice daily as needed for severe nausea, and Compazine scheduled #Anemia-Secondary to hematemesis + bone marrow infiltration of cancer. -No further lab draws or transfusions #Thrombocytopenia / Neutropenia-neutropenia worsening with bacteremia/candidemia. Overall pancytopenia secondary to bone marrow involvement but also an acute drop likely secondary to sepsis/infection.Total 4 unit platelets this admission. Platelets improved to 17 No further transfusions or lab draws #Cancer related pain Appreciate management of this from palliative care - See above #Anxiety -Lorazepam PRN -Continue Escitalopram #Epistaxis-having epistaxis secondary to severe thrombocytopenia. None since 02/28. Hemoglobin did drop to 7.8 and remained stable - Continue Afrin nasal spray as needed and platelet transfusion if needed - Left tamponade rhino rocket at bedside if needed. Likely to recur with her thrombocytopenia #VTE Prophylaxis -none needed on comfort measures #Disposition - continue on med/surg, GIP/inpatient hospice Admission and Anticipated Discharge Date Admission Date: March 02, 2025 Supervising Physician Co-Signing Physician Notes Attending attestation Pt seen and examined in concert with Dr. Elizondo. In agreement with the documented findings as noted in the resident documentation with any exceptions or additions as noted here. Resting in bed at time of evaluation, pain remains controlled on updated regimen. Somewhat somnolent intermittently but engages and provides appropriate answers. VS as noted. Coarse breath sounds without focal lower lobe findings on examination. S1/S2 nl RRR no MCG. General inpatient hospice care in thet setting of metastatic breast cancer with complication as noted with eminent - palliative medicine consult appreciated - Continue current pain control. Encourage lorazepam use over diphenhydramine. Palliative care input appreciated. Subjective fever - last fever > 1 wk ago, APAP for antipyretic if needed. Else see resident documentation as noted. Subjective No acute events overnight. Pt is asleep and disoriented this morning. Pt remains in bed. Continues drinking fluids, but no longer eating meals. Denies pain Review of Systems Review of Systems: As per HPI Physical Exam Physical Exam: Gen: NAD, Awake and alert HEENT: NCAT, normal conjunctiva, MMM CV: RRR, no m/r/g, S1/S2 normal, 2+ edema at B ankles/feet Resp: CTAB harsh breath sounds at lower trachea, Symmetrical chest rise, increased work of breathing noted Abd: Soft, NT/ND, hypoactive BS Skin: Warm, dry, pale, no rashes. Results & Data Results & Data Vital Signs (Past 12 Hours) Vital Signs O2 Del Method 03/08/25 20:00 Room Air Resident Activity Tracking Resident Involvement: Resident Care Provided Care Provided: Adult Hospital Medicine
[2025-03-09] MEDS: [UNRECOGNIZED DRUG - REMARK] SCH (10:49)
[2025-03-09] MEDS: GLYCOPYRROLATE 0.2 MG/ML VIAL IV PRN (22:20)
--- NOTE | 2025-03-10 07:15 | Hospitalist Progress Note ---
Date of Service March 10, 2025 Assessment & Plan (1) Comfort measures only status: (2) Malignant neoplasm of breast metastatic to bone: Plan This patient is a 34yo female with history of metastatic breast cancer (lesions to spine, lung, liver, brain) presenting with intractable vomiting with hematemesis and pancytopenia. 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 During hospital stay she had radiation to the stomach which has improved some of her symptoms and she is able to tolerate clear liquids. She also developed candidemia bacteremia due to TPN use through her port which has now b een discontinued. 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 # Comfort measures only status-patient and are agreeable to going on inpatient hospice. If condition significantly worsens and no family present at bedside, call right away so they are able to arrive and be with her before she passes away. Pain appears well controlled with current regimen. Pt declining in cognitive and physical function. - Continue pain control with fentanyl patch 50 mcg - Continue IV Dilaudid 0.5mg q4h - Continue Lorazepam for anxiety or insomnia - Zofran for nausea - Robinul or hyoscyamine for secretions # Neutropenic fever/bacteremia/candidemia- - No longer treating with abx - Okay to use port if poor access otherwise #Metastatic breast cancer / malignant gastric outlet obstruction / hematemesis / gastritis-After discussion with oncology both here and in [place], there are no further chemotherapy options for her given her gastric outlet obstruction and bone marrow involvement. Finished radiation to abdomen 02/23, which likely will help hematemesis but less likely to help GOO. Started radiation to breast 02/27 for pain but elected to stop on 02/28. - Continue Carafate, PPI - Continue on ondansetron scheduled, lorazepam as needed for anxiety or agitation, olanzapine 10 mg twice daily as needed for severe nausea, and Compazine scheduled #Anemia-Secondary to hematemesis + bone marrow infiltration of cancer. -No further lab draws or transfusions #Thrombocytopenia / Neutropenia-neutropenia worsening with bacteremia/candidemia. Overall pancytopenia secondary to bone marrow involvement but also an acute drop likely secondary to sepsis/infection.Total 4 unit platelets this admission. Platelets improved to 17 No further transfusions or lab draws #Cancer related pain Appreciate management of this from palliative care - See above #Anxiety -Lorazepam PRN -Continue Escitalopram #Epistaxis-having epistaxis secondary to severe thrombocytopenia. None since 02/28. Hemoglobin did drop to 7.8 and remained stable - Continue Afrin nasal spray as needed and platelet transfusion if needed - Left tamponade rhino rocket at bedside if needed. Likely to recur with her thrombocytopenia #VTE Prophylaxis -none needed on comfort measures #Disposition - continue on med/surg, GIP/inpatient hospice Admission and Anticipated Discharge Date Admission Date: March 02, 2025 Supervising Physician Co-Signing Physician Notes Attending I also saw the patient for tan portions of the clinical history and physical examination. With the impression and plan as noted in the resident documentation above. 34-year-old female with history of metastatic breast cancer here for inpatient hospice secondary to symptoms unmanageable at home. Palliative medicine consult appreciated. Additional per resident documentation. Subjective Pt with c/o increased urination overnight. Bladder was scanned and noted to be over 500mL. Martinez was placed for pt comfort. This morning, pt is less responsive to voice. She will open eyes, but does not readily respond. Shallow breathing and minimal extremity movement. Review of Systems Review of Systems: As per HPI Physical Exam Physical Exam: Gen: NAD, Awake, disoriented HEENT: NCAT, normal conjunctiva CV: RRR, no m/r/g, S1/S2 normal, 2+ edema at B ankles/feet Resp: CTAB harsh breath sounds at lower trachea, shallow breaths, increased work of breathing noted Abd: Soft, NT/ND, hypoactive BS Skin: Warm, dry, pale, no rashes. Results & Data Results & Data Vital Signs (Past 12 Hours) Vital Signs O2 Del Method 03/09/25 21:00 Room Air Resident Activity Tracking Resident Involvement: Resident Care Provided Care Provided: Adult Hospital Medicine
--- NOTE | 2025-03-10 13:16 | Palliative Care Progress Note ---
Date of Service March 10, 2025 Assessment & Plan (1) Cancer related pain: Plan: Continue: duragesic 50 Mcg/Hr 1 patch TD Q3D@0900 MIN Morphine 4mg IV Q1h PRN for BTP or Roxanol 10mg SL/PO Q3h PRN for BTP (2) Refractory nausea and vomiting: Plan: Pt c/o intractable N/V for about six weeks - constant nausea that frequently worsens causing emesis, but the underlying nausea has been constant and refractory to medications for several weeks. She previously has had 4mg of zofran which offers no relief. She reports relief from rotating zofran and compazine previously for nausea after cancer treatments, but this time nothing worked so she came to hospital. She shared that her nausea had improved and she was tolerating sips after 24hr of RTC alternating zofran/compazine, but it wors ened and Zyprexa was added with marginal improvement of nausea. Continue Zyprexa 10mg ODT q12h PRN for refractory nausea Continue Zofran 8mg ODT q6hr MIN alternate zofran/compazine so one or other is given every three hours MIN until nausea relieved then PRN Continue Compazine 10mg PO q6hr MIN Continue Carafate, PPI, Pepcid, TPN; consider adding PPI, pepcid to TPN for ease of use at home. (3) Advanced care planning/counseling discussion: Plan: pt remains GIP Hospice. Advantage RN at bedside with spouse. Anticipatory guidance offered. Discussed changes pt may move through in the dying process including but not limited to sleeping more, disorientation when awake, restlessness, diminished senses/inability to respond to stimulus although ability to be aware of them remains intact longer, and changes in body temperatures, skin changes/mottling/cyanosis, respiratory pattern changes, and oral secretions. Family verbalized understanding. The goal is to assure a peaceful . (4) Comfort measures only status: Plan: Remains on GIP status - requiring multiple IV medicaions for N/V as well as frequent PRNs for pain. 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 (5) Palliative care by specialist: Plan: Palliative care will continue to follow for ongoing EOL pt care and family support. (6) Lethargy: Plan As above. Admission and Anticipated Discharge Date Admission Date: March 02, 2025 Subjective Pt with c/o increased urination overnight. Bladder was scanned and noted to be over 500mL. Martinez was placed for pt comfort. This morning pt more lethargic with changes in color and respiratory patterns indicative of transition to active dying. Spouse at bedside.. Review of Systems Review of Systems: Unobtainable due to cognitive status Physical Exam Constitutional: WD/WN, vitals as above Eyes: PERRL, conjunctivae normal, anicteric sclerae ENMT: Ears: no hearing impairment Neck: trachea midline, no thyromegaly Respiratory: normal respiratory effort, lungs clear to auscultation Cardiovascular: Rate/Rhythm: regular rate and regular rhythm Extremities: + edema and + vascular access device Gastrointestinal (Abdomen): normal bowel sounds, soft, nontender, no hepatosplenomegaly Skin: no rashes, warm and dry + pallor Neurologic: moves all extremities and + obtunded Results & Data Vital Signs (Past 12 Hours) Vital Signs O2 Del Method 03/09/25 07:35 Room Air Laboratory Results No further labs or diagnostics in concert with comfort directed care. Diagnostic Findings No further labs or diagnostics in concert with comfort directed care. Medications Administered Current Inpatient Medications Diphenoxylate HCl/Atropine (Diphenoxylate/Atropine 2.5/0.025mg Tab) 1 tab PO Q6H PRN PRN Reason: Diarrhea Stop: 04/01/25 14:26 Last Admin: 03/06/25 05:23 Dose: 1 tab Escitalopram Oxalate (Escitalopram Oxalate 10 Mg Tab) 10 mg PO HS MIN Stop: 04/01/25 20:59 Last Admin: 03/09/25 21:12 Dose: 10 mg Fentanyl (Fentanyl 12 Mcg/Hr Tdsy) 1 patch TD Q3D MIN Stop: 03/23/25 10:29 Last Admin: 03/09/25 10:49 Dose: 1 patch Fentanyl (Fentanyl 50 Mcg/Hr Tdsy) 1 patch TD Q3D MIN Stop: 03/23/25 10: Last Admin: 03/09/25 10:49 Dose: 1 patch Glycopyrrolate (Glycopyrrolate 0.2 Mg/Ml Vial) 0.4 mg IV Q4H PRN PRN Reason: Rattling Secretions or Pulm Congestion Stop: 04/01/25 14:22 Last Admin: 03/09/25 22:20 Dose: 0.4 mg Hydromorphone HCl (Hydromorphone Inj 0.5 Mg/0.5 Ml Syr) 0.5 mg IV Q4H PRN PRN Reason: Pain 6-03/17 Stop: 03/21/25 10:17 Last Admin: 03/10/25 13:25 Dose: 0.5 mg Hyoscyamine (Hyoscyamine Sulfate 0.125 Mg Tab) 0.125 mg SL Q4H PRN PRN Reason: Secretions or Pulm Congestion Stop: 04/01/25 14:22 Pantoprazole Sodium (Protonix) 40 mg in 10 mls @ 5 mls/min IV BID MIN Stop: 04/01/25 20:59 Last Admin: 03/10/25 08:02 Dose: 5 mls/min Prochlorperazine 5 mg/ Syringe 5 mls @ 5 mls/min IV Q6H MIN Stop: 04/01/25 18:59 Last Admin: 03/10/25 15:06 Dose: 5 mls/min Lorazepam (Lorazepam 0.5 Mg Tab) 0.5 mg SL Q4H PRN PRN Reason: anxiety Stop: 04/01/25 14:26 Last Admin: 03/09/25 23:31 Dose: 0.5 mg Melatonin (Melatonin 3 Mg Tab) 3 mg PO HS PRN PRN Reason: insomnia Stop: 04/01/25 20:59 Miscellaneous (Fentanyl Patch Remove & Waste---50mcg) 1 each N/A Q3D [facility] Stop: 04/08/25 10:29 Last Admin: 03/09/25 10:49 Dose: 1 each Miscellaneous (Check Fentanyl Patch Placement) 2 each N/A QS [facility] Stop: 04/08/25 15:59 Last Admin: 03/10/25 15:07 Dose: 2 each Miscellaneous (Fentanyl Patch Remove & Waste--12mcg) 1 each N/A Q3D MIN Stop: 04/11/25 10:29 Morphine Sulfate (Morphine Sulfate 10 Mg/0.5 Ml Udp) 10 mg PO Q2H PRN PRN Reason: Pain or Respiratory Distress Stop: 03/16/25 14:22 Last Admin: 03/10/25 15:25 Dose: 10 mg Olanzapine (Olanzapine Zydis 10 Mg Orally Dis. Tab) 10 mg PO Q12 PRN PRN Reason: severe nausea Stop: 04/01/25 20:59 Last Admin: 03/07/25 19:36 Dose: 10 mg Ondansetron HCl (Ondansetron 8mg Od Tab) 8 mg PO TID [facility] Stop: 04/01/25 20:59 Last Admin: 03/10/25 13:30 Dose: Not Given Simethicone (Simethicone 80 Mg Chew) 80 mg PO Q6H PRN PRN Reason: Flatulence Stop: 04/02/25 10:00 Last Admin: 03/03/25 10:32 Dose: 80 mg Sucralfate (Sucralfate 1 Gm/10 Ml Udc) 1 gm PO QID [facility] Stop: 04/01/25 16:59 Last Admin: 03/10/25 15:26 Dose: Not Given PG Care Time/CCT Total # of Minutes Spent Total Time Spent with Patient: Total time spent is greater than 50% in coordination of care (as documented) at patient's floor/unit and/or counseling patient: [place] [address] SUB INP/OBS CARE 3/50MIN Patient Type Established History Expanded Problem Focused Exam Expanded Problem Focused Medical Decision Making Moderate Complexity Diagnoses Cancer related pain G89.3 Refractory nausea and vomiting R11.2 Advanced care planning/counseling discussion Z71.89 Comfort measures only status Z51.5 Palliative care by specialist Z51.5 Lethargy R53.83
[2025-03-10] MEDS: HYDROmorphone INJ 0.5 MG/0.5 ML SYR IV PRN (20:08)
[2025-03-10] MEDS: LORazepam Inj 0.5 MG in SYRINGE 0.25 ML IV PRN (22:18)
[2025-03-10] MEDS ORDERED: LORazepam Inj 0.5 MG in SYRINGE 0.25 ML IV PRN ×2 (22:33→23:40)
[2025-03-10] MEDS ORDERED: HYDROmorphone INJ 0.5 MG/0.5 ML SYR IV PRN (23:40)
[2025-03-11] MEDS: HYDROmorphone INJ 0.5 MG/0.5 ML SYR IV PRN (00:36)
[2025-03-11] MEDS: HYDROmorphone INJ 1 MG/ML SYRINGE IV PRN (01:41)
[2025-03-11] MEDS: LORazepam Inj 1 MG in SYRINGE 0.5 ML IV PRN (02:38)
[2025-03-11] MEDS ORDERED: STAT IV Infusion **Titration per Protocol STA (03:16)
[2025-03-11] MEDS: HYDROmorphone 100 MG/100 ML BAG IV SCH (03:39)
[2025-03-11] MEDS: HYDROmorphone BOLUS from BAG IV PRN (06:49)
--- NOTE | 2025-03-11 07:33 | Hospitalist Progress Note ---
Date of Service March 11, 2025 Assessment & Plan (1) Comfort measures only status: (2) Malignant neoplasm of breast metastatic to bone: Plan This patient is a 34yo female with history of metastatic breast cancer (lesions to spine, lung, liver, brain) presenting with intractable vomiting with hematemesis and pancytopenia. 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 During hospital stay she had radiation to the stomach which has improved some of her symptoms and she is able to tolerate clear liquids. She also developed candidemia bacteremia due to TPN use through her port which has now b een discontinued. She is now [employer] [employer] [place] status, GIP/inpatient hospice. # Comfort measures only status-patient and are agreeable to going on inpatient hospice. If condition significantly worsens and no family present at bedside, call right away so they are able to arrive and be with her before she passes away. Pain appears well controlled with current regimen, h owever pt with increased agitation yesterday evening and overnight. Pt appears to be in phase of active . - Continue pain control with fentanyl patch 50 mcg - Continue IV Dilaudid 0.2mg/hr - Continue Lorazepam for anxiety or insomnia - Consider addition of IV Haldol if agitation continues uncontrolled with dilaudid and lorazepam - Zofran for nausea - Robinul or hyoscyamine for secretions # Neutropenic fever/bacteremia/candidemia- - No longer treating with abx - Okay to use port if poor access otherwise #Metastatic breast cancer / malignant gastric outlet obstruction / hematemesis / gastritis-After discussion with oncology both here and in [place], there are no further chemotherapy options for her given her gastric outlet obstruction and bone marrow involvement. Finished radiation to abdomen 02/23, which likely will help hematemesis but less likely to help GOO. Started radiation to breast 02/27 for pain but elected to stop on 02/28. - Continue Carafate, PPI - Continue on ondansetron scheduled, lorazepam as needed for anxiety or agitation, olanzapine 10 mg twice daily as needed for severe nausea, and Compazine scheduled #Anemia-Secondary to hematemesis + bone marrow infiltration of cancer. -No further lab draws or transfusions #Thrombocytopenia / Neutropenia-neutropenia worsening with bacteremia/candidemia. Overall pancytopenia secondary to bone marrow involvement but also an acute drop likely secondary to sepsis/infection.Total 4 unit platelets this admission. Platelets improved to 17 No further transfusions or lab draws #Cancer related pain Appreciate management of this from palliative care - See above #Anxiety -Lorazepam PRN -Continue Escitalopram #Epistaxis-having epistaxis secondary to severe thrombocytopenia. None since 02/28. Hemoglobin did drop to 7.8 and remained stable - Continue Afrin nasal spray as needed and platelet transfusion if needed - Left tamponade rhino rocket at bedside if needed. Likely to recur with her thrombocytopenia #VTE Prophylaxis -none needed on comfort measures #Disposition - continue on med/surg, GIP/inpatient hospice Admission and Anticipated Discharge Date Admission Date: March 02, 2025 Supervising Physician Co-Signing Physician Notes Attending I also saw the patient for tan portions of the clinical history and physical examination. I agree with the impression and plan as noted above. Some agitation overnight - suspect terminal agitation - that is improved this morning. Now on Dilaudid RN CLINICAL REVIEW with recent IV ativan dose. at bedside. Home Hospice staff also in room. Additional per resident documentation. Subjective Overnight, RN reporting that pt was more agitated and attempting to get out of bed while lethargic. Family felt this was because pt was in increased pain. Over night IV pain meds were adjusted to be administered every hour prn. Later in the evening it was requested to place pt on dilaudid drip for comfort. This morning, pt appears resting comfortably with at bedside. No new complaints. Review of Systems Review of Systems: As per HPI Physical Exam Physical Exam: Gen: NAD, primarily sleeping. Opens eyes spontaneously, but drifts back to sleep HEENT: NCAT CV: RRR, no m/r/g, S1/S2 normal, 2+ edema at B ankles/feet Resp: CTAB harsh breath sounds at lower trachea, shallow breaths, increased work of breathing noted Abd: non distended Skin: Warm, dry, pale, no rashes. Results & Data Results & Data Vital Signs (Past 12 Hours) Vital Signs O2 Del Method 03/10/25 20:15 Room Air Resident Activity Tracking Resident Involvement: Resident Care Provided Care Provided: Adult Hospital Medicine
[2025-03-11] MEDS ORDERED: GLYCOPYRROLATE 0.2 MG/ML VIAL IV PRN (10:56)
[2025-03-11] MEDS ORDERED: HYDROmorphone INJ 1 MG/ML SYRINGE IV PRN (11:03)
--- NOTE | 2025-03-11 11:13 | Communication Note ---
Date of Service: March 11, 2025 Palliative Medicine Generator Mechanic Note Case reviewed with nursing - Ophelia is experiencing increased pain and agitation/anxiety.There are frequent interruptions to her rest by visitors/family she has been seeking to avoid. and Ophelia's best friends are doing their best to control this and despite our efforts to limit visitation, these visitors continue to ignore the signs and enter the room/overstay. is monitoring. He is aware we can ask [facility] Security to assist removing unwanted people from her room if needed. Palliative Med EOL school psychologist assistant assisting with dying transitions/patient and family support. for symptom mgt the following changes were made following d/w nursing and hospice: Ativan 1mg Q1h prn for agitation, terminal agitation/restless/delirium/myoclonus/spasms Increase the Dilaudid comfort gtt as follows: Dilaudid 0.4mg per hour with 0.5mg q15min prn bolus through line for BTP DC Fentanyl patch - Dilaudid hourly rate adjusted for equianalgesia. It will be easier to titrate a single opioid drug regimen at this transitional dying trajectory.Ophelia is moving to active dying, with an anticipated survival now of days. TDF 67.5mcg = 150 OME = 50mg IV MS equivalent = 10mg IV Dilaudid equivalent/day = Dilaudid 0.4mg per hour equivalent Med changes and dosing rationales reviewed with nursing. I am sponge clipper this weekend, please do not hesitate to call or page me for any acute needs. Thank you for allowing us to participate in the ongoing care of this patient. Please page with any additional concerns. Ele Johnson DNP Director, Palliative Medicine
[2025-03-11] MEDS: ACETAMINOPHEN 1,000 MG/100 ML VIAL IV PRN (12:17)
--- NOTE | 2025-03-12 02:32 | Death Pronouncement Note ---
Date of Service March 12, 2025 Pronouncement Note Admission Date Admission Date: March 02, 2025 Contributing Factors (1) Comfort measures only status: (2) Malignant neoplasm of breast metastatic to bone: Hospital Course Hospital Course: I was called to pronounce the of Elvira Almendarez : 1990 by nursing on 03/12/2025 Upon entering the room, the patient was found to be in a terminal state. Patient was unresponsive to verbal and tactile stimuli. Patient unresponsive to corneal and pupillary reflexes. On cardiopulmonary exam, no carotid or radial pulses found and pt without spontaneous heart tones or respirations. Time of was pronounced by me on 03/12/2025 at 0223 Attending physician was notified. Next of kin was notified at bedside Additional Data Attending physician: Andre Morales DO Resident Activity Tracking Resident Involvement: Resident Care Provided Care Provided: Adult Hospital Medicine
[2025-03-12] MEDS ORDERED: [UNRECOGNIZED DRUG - REMARK] SCH (10:30)
--- NOTE | 2025-03-14 09:19 | Discharge Summary ---
Date of Service March 12, 2025 Admission HPI Per Admitting Provider This patient is a 34-year-old female with a history of metastatic breast cancer with mets to the bones, lung, liver, and brain, who was admitted with hematemesis and gastric outlet obstruction with intractable nausea and vomiting. Also with pancytopenia and developed candidemia and bacteremia related to port and TPN use. She is now being admitted under general inpatient hospice. She and her do want to continue with antibiotics to finish out a course for the bacteremia and candidemia but she was not able to have her port removed due to severe thrombocytopenia. She has been able to tolerate some clear liquids on multiple antiemetics. Principal Diagnosis Bacteremia/candidemia in immunocompromised state, metastatic breast cancer Discharge Exam Upon entering the room, the patient was found to be in a terminal state. Patient was unresponsive to verbal and tactile stimuli. Patient unresponsive to corneal and pupillary reflexes. On cardiopulmonary exam, no carotid or radial pulses found and pt without spontaneous heart tones or respirations. Discharge Data Allergies Allergy/AdvReac Type Severity Reaction Status Date / Time No Known Drug Allergies Allergy Unknown Verified 02/13/25 17:15 Consultations 03/02/25 14:24 Consult Palliative Care Routine Hospital Course (1) Comfort measures only status: (2) Malignant neoplasm of breast metastatic to bone: Plan This patient is a 34yo female with history of metastatic breast cancer (lesions to spine, lung, liver, brain) presenting with intractable vomiting with hematemesis and pancytopenia. 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 During hospital stay she had radiation to the stomach which has improved some of her symptoms and she is able to tolerate clear liquids. She also developed candidemia bacteremia due to TPN use through her port which has now been discontinued. She is now [employer] status, GIP/inpatient hospice. # Comfort measures only status-patient and are agreeable to going on i npatient hospice. If condition significantly worsens and no family present at bedside, call right away so they are able to arrive and be with her before she passes away. Pain appears well controlled with current regimen, however pt with increased agitation yesterday evening and overnight. Pt appears to be in phase of active . - Continue pain control with fentanyl patch 50 mcg - Continue IV Dilaudid 0.2mg/hr - Continue Lorazepam for anxiety or insomnia - Consider addition of IV Haldol if agitation continues uncontrolled with dilaudid and lorazepam - Zofran for nausea - Robinul or hyoscyamine for secretions # Neutropenic fever/bacteremia/candidemia- - No longer treating with abx - Okay to use port if poor access otherwise #Metastatic breast cancer / malignant gastric outlet obstruction / hematemesis / gastritis-After discussion with oncology both here and in [place], there are no further chemotherapy options for her given her gastric outlet obstruction and bone marrow involvement. Finished radiation to abdomen 02/23, which likely will help hematemesis but less likely to help GOO. Started radiation to breast 02/27 for pain but elected to stop on 02/28. - Continue Carafate, PPI - Continue on ondansetron scheduled, lorazepam as needed for anxiety or agitation, olanzapine 10 mg twice daily as needed for severe nausea, and Compazine scheduled #Anemia-Secondary to hematemesis + bone marrow infiltration of cancer. -No further lab draws or transfusions #Thrombocytopenia / Neutropenia-neutropenia worsening with bacteremia/candidemia. Overall pancytopenia secondary to bone marrow involvement but also an acute drop likely secondary to sepsis/infection.Total 4 unit platelets this admission. Platelets improved to 17 No further transfusions or lab draws #Cancer related pain Appreciate management of this from palliative care - See above #Anxiety -Lorazepam PRN -Continue Escitalopram Total Time Total Time Spent Total Time Spent (In Minutes): I did not see the patient on the date of her . I spent five minutes reviewing the chart and documenting. Discharge Plan Discharge Items Patient Disposition: Other Date/Time: 03/12/25 02:23 Supervising Physician Co-Signing Physician Notes Patient was on inpatient hospice. Was seen 03/11/2025 and then passed during the plate preparer hours of 03/12/2025. I did not personally see the patient on 03/12/2025. I agree with the impression and plan as outlined in the resident discharge summary.
== END 2025-03-12 03:16 | disposition expired | DRG 951 ==
LOC: SUATTDRO 13:15 → 3E 13:15
DX: D63.0 Anemia in neoplastic disease; Z51.5 Encounter for palliative care; R78.81 Bacteremia; G89.3 Neoplasm related pain (acute) (chronic); Y92.230 Patient room in hospital as the place of occurrence of the external cause; D62 Acute posthemorrhagic anemia; D61.818 Other pancytopenia; C79.31 Secondary malignant neoplasm of brain; B37.89 Other sites of candidiasis; S70.02XA Contusion of left hip, initial encounter; L60.0 Ingrowing nail; C50.919 Malignant neoplasm of unspecified site of unspecified female breast; F41.9 Anxiety disorder, unspecified; K29.70 Gastritis, unspecified, without bleeding; C79.51 Secondary malignant neoplasm of bone; C78.00 Secondary malignant neoplasm of unspecified lung; B96.89 Other specified bacterial agents as the cause of diseases classified elsewhere; Z79.899 Other long term (current) drug therapy; C78.7 Secondary malignant neoplasm of liver and intrahepatic bile duct; Z17.0 Estrogen receptor positive status [ER+]; C78.89 Secondary malignant neoplasm of other digestive organs; W01.0XXA Fall on same level from slipping, tripping and stumbling without subsequent striking against object, initial encounter; B95.7 Other staphylococcus as the cause of diseases classified elsewhere